=== PATIENT | male | born 1955 | race African-American/Black ===

== ENCOUNTER 2018-02-13 11:03 | Emergency (ER) | payer OTHER ==
[2018-02-13] MEDS ORDERED: HYDROCODONE/APAP 10/325 TAB ONE (11:42)
--- NOTE | 2018-02-13 12:15 | RAD REPORT ---
EXAM DESCRIPTION: RAD - Ribs Left - 02/13/2018 12:06 pm CLINICAL HISTORY: Left rib pain FINDINGS: No fracture is seen. The bones are osteoporotic
--- NOTE | 2018-02-13 12:25 | ER ---
Nurse's Notes [facility] Name: Neftali Gill Jr Age: 62 yrs Sex: Male : 1955 Arrival Date: 02/13/2018 Time: 11:06 Bed 14 Private MD: Mary Alberto Diagnosis: Rib Fracture - Left Presentation: 02/13 11:30 Presenting complaint: Patient states: bent over the side of a chair yesterday and heard iw a pop on left side of ribs, now has pain and difficulty breathing. Transition of care: patient was not received from another setting of care. Onset of symptoms was February 12, 2018. Risk Assessment: Do you want to hurt yourself or someone else? Patient reports no desire to harm self or others. Initial Sepsis Screen: Does the patient meet any 2 criteria? No. Patient's initial sepsis screen is negative. Does the patient have a suspected source of infection? No. Patient's initial sepsis screen is negative. Care prior to arrival: None. 11:30 Method Of Arrival: Ambulatory iw 11:30 Acuity: DUNCAN 4 iw Triage Assessment: 12:06 General: Appears in no apparent distress. uncomfortable, Behavior is calm, cooperative, hj appropriate for age. Respiratory: Reports shortness of breath Onset: The symptoms/episode began/occurred the patient has mild shortness of breath. Historical: - Allergies: 11:36 ACES; iw 11:36 NSAIDS; iw 11:36 Lisinopril; iw 11:36 Diovan; iw - Home Meds: 11:36 amlodipine 10 mg tab 1 tab once daily [Active]; glipizide 10 mg Oral tab 1 tab once iw daily [Active]; hydralazine 25 mg Oral tab 2 times per day [Active]; gabapentin 600 mg oral tab 1 tab 3 times per day [Active]; metformin 1,000 mg Oral tab 1 tab 2 times per day [Active]; Nexium 40 mg Oral cpDR 1 cap once daily [Active]; prednisone 10 mg Oral tab once daily [Active]; - PMHx: 11:36 ANGIOEDEMA; GERD; High Cholesterol; Hypertension; NIDDM; iw - PSHx: 11:36 Trach x2; Cholecystectomy; TURP; iw - Immunization history:: Adult Immunizations up to date. - Social history:: Smoking status: Patient uses tobacco products, 1-2 cigarettes. - Ebola Screening: : Patient negative for fever greater than or equal to 101.5 degrees Fahrenheit, and additional compatible Ebola Virus Disease symptoms Patient denies exposure to infectious person Patient denies travel to an Ebola-affected area in the 21 days before illness onset No symptoms or risks identified at this time. Screenin:30 Abuse screen: Denies threats or abuse. Denies injuries from another. Nutritional hj screening: No deficits noted. Tuberculosis screening: No symptoms or risk factors identified. Fall Risk None identified. Assessment: 11:30 Pain: Complains of pain in chest. Cardiovascular: Rhythm is regular. Respiratory: hj Airway is patent Respiratory effort is even, unlabored, Respiratory pattern is regular, symmetrical, Breath sounds are clear. Vital Signs: 11:37 BP 156 / 73; Pulse 90; Resp 18 S; Temp 98.2; Pulse Ox 97% on R/A; Weight 95.25 kg; iw Height 6 ft. 1 in. (185.42 cm); Pain 8/10; 12:36 BP 160 / 72; Pulse 89; Resp 18; Pulse Ox 99% on R/A; hj 11:37 Body Mass Index 27.71 (95.25 kg, 185.42 cm) iw ED Course: 11:06 Patient arrived in ED. mr 11:06 Mary Alberto is Private Physician. mr 11:20 Jb Taylor, RN is Primary Nurse. hj 11:23 Dariusz Lacey PA is PHCP. jmm 11:23 Jayson Natarajan MD is Attending Physician. jmm 11:30 Patient has correct armband on for positive identification. Placed in gown. Bed in low hj position. Call light in reach. Side rails up X 1. Adult w/ patient. 11:33 Triage completed. iw 11:37 Arm band placed on. iw 12:06 Ribs Left XRAY In Process Unspecified. EDMS 12:24 Mary Alberto is Referral Physician. jmm 12:34 No provider procedures requiring assistance completed. Patient did not have IV access hj during this emergency room visit. Administered Medications: 11:28 Drug: Wilmore 10 mg-325 mg 1 tabs Route: PO; hj 12:36 Follow up: Response: No adverse reaction hj 12:37 Follow up: Response: Pain is decreased hj Outcome: 12:24 Discharge ordered by . jmm 12:35 Discharged to home ambulatory. al 12:35 Condition: stable 12:35 Discharge instructions given to patient, Instructed on discharge instructions, follow up and referral plans. medication usage, incentive spirometer; Demonstrated understanding of instructions, follow-up care, incentive spirometer; Prescriptions given X 1. 12:36 Patient left the ED. al Signatures: Dispatcher [employer] EDMS Dariusz Lacey PA PA jmm Rivera, Maria mr Nedra Lakhani, ANSLEY RN Jb Taylor RN RN hj
--- NOTE | 2018-02-13 12:25 | EDPHYS ---
Physician Documentation [facility] Name: Neftali Gill Jr Age: 62 yrs Sex: Male : 1955 Arrival Date: 02/13/2018 Time: 11:06 Bed 14 Private MD: Mary Alberto ED Physician Jayson Natarajan HPI: 02/13 11:47 This 62 yrs old Black Male presents to ER via Ambulatory with complaints of Breathing jmm Difficulty. 11:47 The patient has shortness of breath with inspiration. Onset: The symptoms/episode jmm began/occurred acutely, yesterday. Duration: The symptoms are continuous. The patient's shortness of breath is aggravated by deep breaths. Associated signs and symptoms: Pertinent negatives: chest pain, fever. This is a 62 year old male with a history of angioedema, HLP, HTN, NIDDM, that presents to the ED with left sided chest pain after bending over and feeling a pop. The patient states he may have broken a rib. Patient states the pain is exacerbated with deep breathing. Denies tearing chest pain. . Historical: - Allergies: 11:36 ACES; iw 11:36 NSAIDS; iw 11:36 Lisinopril; iw 11:36 Diovan; iw - Home Meds: 11:36 amlodipine 10 mg tab 1 tab once daily [Active]; glipizide 10 mg Oral tab 1 tab once iw daily [Active]; hydralazine 25 mg Oral tab 2 times per day [Active]; gabapentin 600 mg oral tab 1 tab 3 times per day [Active]; metformin 1,000 mg Oral tab 1 tab 2 times per day [Active]; Nexium 40 mg Oral cpDR 1 cap once daily [Active]; prednisone 10 mg Oral tab once daily [Active]; - PMHx: 11:36 ANGIOEDEMA; GERD; High Cholesterol; Hypertension; NIDDM; iw - PSHx: 11:36 Trach x2; Cholecystectomy; TURP; iw - Immunization history:: Adult Immunizations up to date. - Social history:: Smoking status: Patient uses tobacco products, 1-2 cigarettes. - Ebola Screening: : Patient negative for fever greater than or equal to 101.5 degrees Fahrenheit, and additional compatible Ebola Virus Disease symptoms Patient denies exposure to infectious person Patient denies travel to an Ebola-affected area in the 21 days before illness onset No symptoms or risks identified at this time. ROS: 11:47 Constitutional: Negative for fever, chills, and weight loss. jmm 11:47 Cardiovascular: Positive for chest pain. 11:47 Respiratory: Positive for shortness of breath. 11:47 All other systems are negative. Exam: 11:47 Constitutional: This is a well developed, well nourished patient who is awake, alert, jmm and in no acute distress. Head/Face: atraumatic. 11:47 Cardiovascular: Regular rate and rhythm. No edema appreciated Respiratory: Normal respirations, no respiratory distress appreciated Abdomen/GI: Non distended, soft Back: Normal ROM MS/ Extremity: Moves all extremities, no obvious deformities appreciated, no edema noted to the lower extremities Neuro: Awake and alert, normal gait Psych: Behavior is normal, Mood is normal, Patient is cooperative and pleasant 11:47 Chest/axilla: pain is elicited on palpation of the left lateral chest wall, no obvious deformity appreciated, . Vital Signs: 11:37 BP 156 / 73; Pulse 90; Resp 18 S; Temp 98.2; Pulse Ox 97% on R/A; Weight 95.25 kg; iw Height 6 ft. 1 in. (185.42 cm); Pain 8/10; 12:36 BP 160 / 72; Pulse 89; Resp 18; Pulse Ox 99% on R/A; hj 11:37 Body Mass Index 27.71 (95.25 kg, 185.42 cm) iw MDM: 11:47 Patient medically screened. jmm 12:20 ED course: Rib series is negative for obvious fracture. PE findings are concerning for jean-paul occult rib fracture. Patient given incetive spirometer in the ED with pneumonia return precautions. Symptoms appear consistent with rib injury opposed to acs cause. Patient denies tear pain concerning for dissection. . 12:20 Response to treatment: the patient's symptoms have markedly improved after treatment. [facility] 12:23 Data reviewed: vital signs, nurses notes, radiologic studies, plain films. Counseling: deborah I had a detailed discussion with the patient and/or guardian regarding: the historical points, exam findings, and any diagnostic results supporting the discharge/admit diagnosis, radiology results, the need for outpatient follow up, to return to the emergency department if symptoms worsen or persist or if there are any questions or concerns that arise at home. 02/13 11:28 Order name: Pradeep Miller XRAY; Complete Time: 12:17 [facility] Administered Medications: 11:28 Drug: [place] 10 mg-325 mg 1 tabs Route: PO; 12:36 Follow up: Response: No adverse reaction 12:37 Follow up: Response: Pain is decreased Disposition: 02/13/18 12:24 Discharged to Home. Impression: Rib Fracture - Left. - Condition is Stable. - Discharge Instructions: Rib Contusion, Rib Belt, Rib Fracture. - Prescriptions for Tylenol- Codeine #3 300-30 mg Oral Tablet - take 1 tablet by ORAL route every 6 hours As needed; 20 tablet. - Medication Reconciliation Form, Thank You Letter, Antibiotic Education, Prescription Opioid Use form. - Follow up: Mary Alberto; When: 1 - 2 days; Reason: Continuance of care. Addendum: 02/21/2018 20:40 Co-signature as Attending Physician, Jayson Natarajan MD I agree with the assessment and k dr plan of care. Signatures: Dispatcher [employer] EDWA Jayson Natarajan MD MD [facility] Dariusz Lacey PA PA [facility] Nedra Lakhani, ANSLEY RN Jb Taylor RN RN Corrections: (The following items were deleted from the chart) 02/13 12:36 12:24 02/13/2018 12:24 Discharged to Home. Impression: Rib Fracture - Left. Condition hj is Stable. Forms are Medication Reconciliation Form, Thank You Letter, Antibiotic Education, Prescription Opioid Use. Follow up: Mary Alberto; When: 1 - 2 days; Reason: Continuance of care. [facility] 21:45 11:47 This is a 62 year old male with a history of angioedema, HLP, HTN, NIDDM, that deborah presents to the ED. [facility]
[2018-02-13 12:40] VITALS: TEMP 98.2
[2018-02-13 12:41] VITALS: BP 160/72; O2SAT 99
== END 2018-02-13 12:36 | disposition home or self-care (01) ==
LOC: ER 11:03
DX: S22.32XA Fracture of one rib, left side, initial encounter for closed fracture (principal); X58.XXXA Exposure to other specified factors, initial encounter; Y93.89 Activity, other specified; Y92.9 Unspecified place or not applicable; Z88.6 Allergy status to analgesic agent; Z88.8 Allergy status to other drugs, medicaments and biological substances; I10 Essential (primary) hypertension; E78.00 Pure hypercholesterolemia, unspecified; E11.9 Type 2 diabetes mellitus without complications; F17.210 Nicotine dependence, cigarettes, uncomplicated
CPT/HCPCS: 99283

== ENCOUNTER 2018-10-02 20:01 | Observation (INO) | payer OTHER ==
[2018-10-02] MEDS ORDERED: DIPHENHYDRAMINE 50 MG/ML VIAL ONE ×2 (20:29→23:44)
[2018-10-02] MEDS ORDERED: METHYLPREDNISOLONE 125 MG INJ ONE (20:29)
[2018-10-02] MEDS ORDERED: FAMOTIDINE 20 MG/2 ML VIAL IV ONE (20:30)
[2018-10-02] MEDS ORDERED: EPINEPHRINE/PF 1 MG/ML AMP ONE (20:31)
[2018-10-02] MEDS ORDERED: DEXAMETHASONE 4 MG/ML VIAL ONE (22:12)
--- NOTE | 2018-10-03 00:32 | EDPHYS ---
Physician Documentation [facility] Name: Neftali Gill Jr Age: 63 yrs Sex: Male : 1955 Arrival Date: 10/02/2018 Time: 20:03 Bed 6 Private MD: Mary Alberto ED Physician Magen Palacios HPI: 10/02 20:19 This 63 yrs old Black Male presents to ER via Ambulatory with complaints of Swelling Of rn Tongue. 20:19 The patient presents with swelling. Onset: The symptoms/episode began/occurred 1 rn hour(s) ago. Duration: The symptoms are continuous. Modifying factors: The symptoms are alleviated by nothing, the symptoms are aggravated by nothing. Severity of symptoms: At their worst the symptoms were mild, in the emergency department the symptoms are unchanged. The patient has experienced similar episodes in the past. Reports multiple previous episodes of angioedema, reports no clear etiology in past, taken off his lisinopril, still happens, has been evaluated by circulation assistant without clear etiology. Reports about an hour ago started swelling again. No rash, no difficulty breathing, came in because one time needed tracheostomy. . Historical: - Allergies: 20:18 ACES; tl2 20:18 Diovan; tl2 20:18 Lisinopril; tl2 20:18 NSAIDS; tl2 - Home Meds: 20:18 amlodipine 10 mg tab 1 tab once daily [Active]; gabapentin 600 mg Oral tab 1 tab 3 tl2 times per day [Active]; glipizide 10 mg Oral tab 1 tab once daily [Active]; hydralazine 25 mg Oral tab 2 times per day [Active]; metformin 1,000 mg Oral tab 1 tab 2 times per day [Active]; Nexium 40 mg Oral cpDR 1 cap once daily [Active]; prednisone 10 mg Oral tab once daily [Active]; - PMHx: 20:18 ANGIOEDEMA; GERD; High Cholesterol; Hypertension; NIDDM; tl2 - Immunization history:: Adult Immunizations up to date. - Social history:: Smoking status: Patient uses tobacco products. - Ebola Screening: : No symptoms or risks identified at this time. - Family history:: not pertinent. - Hospitalizations: : No recent hospitalization is reported. ROS: 20:19 Constitutional: Negative for fever, chills, and weight loss, ENT: + tongue swelling or rn: Negative for chest pain, palpitations, and edema, Respiratory: Negative for shortness of breath, cough, wheezing, and pleuritic chest pain, Abdomen/GI: Negative for abdominal pain, nausea, vomiting, diarrhea, and constipation, MS/Extremity: Negative for injury and deformity, Skin: Negative for injury, rash, and discoloration, Neuro: Negative for headache, weakness, numbness, tingling, and seizure. Exam: 20:19 Constitutional: This is a well developed, well nourished patient who is awake, alert, rn and in no acute distress. Head/Face: Normocephalic, atraumatic. Eyes: Pupils equal round and reactive to light, extra-ocular motions intact. Lids and lashes normal. Conjunctiva and sclera are non-icteric and not injected. Cornea within normal limits. Periorbital areas with no swelling, redness, or edema. ENT: + left tongue swelling able to visualize some of posterior pharynx, handling secretions Neck: Trachea midline, no thyromegaly or masses palpated, and no cervical lymphadenopathy. Supple, full range of motion without nuchal rigidity, or vertebral point tenderness. No Meningismus. Cardiovascular: Regular rate and rhythm. No pulse deficits. Respiratory: Lungs have equal breath sounds bilaterally, clear to auscultation. No increased work of breathing, no retractions or nasal flaring. Skin: Warm, dry with normal turgor. Normal color with no rashes, no lesions, and no evidence of cellulitis. MS/ Extremity: Pulses equal, no cyanosis. Neurovascular intact. Full, normal range of motion. Equal circumference. Neuro: Awake and alert, GCS 15, oriented to person, place, time, and situation. Vital Signs: 20:18 BP 182 / 102; Pulse 108; Resp 18; Pulse Ox 99% on R/A; Weight 81.65 kg; Height 6 ft. 0 tl2 in. (182.88 cm); Pain 0/10; 22:08 BP 157 / 72; Pulse 92; Resp 18; Pulse Ox 98% on R/A; tl2 22:59 BP 164 / 67; Pulse 89; Resp 18; Pulse Ox 96% on R/A; tl2 10/03 00:17 BP 174 / 79; Pulse 89; Resp 18; Pulse Ox 97% on R/A; tl2 10/02 20:18 Body Mass Index 24.41 (81.65 kg, 182.88 cm) tl2 MDM: 10/02 20:13 Patient medically screened. rn 22:41 ED course: Pt about the same, sleeping and maintaining airway, not better or worse.. rn 10/03 00:30 Differential diagnosis: angioedema. Data reviewed: vital signs, nurses notes, and as a rn result, I will admit patient. Counseling: I had a detailed discussion with the patient and/or guardian regarding: the historical points, exam findings, and any diagnostic results supporting the discharge/admit diagnosis, the need for further work-up and treatment in the hospital. Response to treatment: There is no appreciated change of the patient's symptoms at this time, and as a result, I will admit patient. ED course: No improvement or worsening, patient able to sleep and airway maintained, will admit to Dr. Figueroa for further observation in hospital given he got multiple epinephrine and meds without resolution. . 10/03 07:33 Order name: Glucose, Ancillary Testing [facility] 10/03 07:33 Order name: Glucose, Ancillary Testing [facility] 10/02 20:17 Order name: IV Start; Complete Time: 20:24 rn Administered Medications: 10/02 20:22 Drug: SOLU-Medrol 125 mg Route: IVP; Site: right forearm; tl2 21:00 Follow up: Response: No adverse reaction ea :23 Drug: Benadryl 50 mg Route: IVP; Site: right forearm; tl2 10/03 03:01 Follow up: Response: No adverse reaction; Other; symptoms improved ea 10/02 20:25 Drug: Pepcid 20 mg Route: IVP; Site: right forearm; tl2 22:00 Follow up: Response: No adverse reaction ea 20:27 Drug: EPINEPHrine 1mg/mL 1:1,000 0.3 ml Route: Sub-Q; Site: left upper arm; tl2 21:00 Follow up: Response: No adverse reaction ea 21:10 Drug: EPINEPHrine 1mg/mL 1:1,000 0.3 ml Route: Sub-Q; Site: right upper arm; ea 22:00 Follow up: Response: No adverse reaction ea 23:00 Follow up: Response: No adverse reaction ea 22:10 Drug: Decadron - Dexamethasone 10 mg Route: IVP; Site: right antecubital; ea 10/03 03:31 Follow up: Response: No adverse reaction ea 10/02 23:38 Drug: Benadryl 25 mg Route: IVP; Site: right forearm; ea 10/03 03:15 Follow up: Response: No adverse reaction; No adverse reaction, pt reports symptoms have ea been improving little by little. Disposition: 10/03/18 00:31 Hospitalization ordered by Radha Faustin for Observation. Preliminary diagnosis is Angioedema. - Bed requested for Telemetry/MedSurg (observation). - Status is Observation. ch - Condition is Stable. - Problem is an acute exacerbation. - Symptoms are unchanged. UTI on Admission? No Signatures: Brea Hayes, RN ANSLEY ch Pratima Smith RN Park Quiroga RN RN fc Magen Palacios MD MD rn Knox, Taylor, RN RN tl2 Jessica Andrews RN RN df Antunez, Elena, RN RN ea Corrections: (The following items were deleted from the chart) 03:07 00:31 Hospitalization Ordered by Radha Faustin MD for Observation. Preliminary fc diagnosis is Angioedema. Bed requested for Telemetry/MedSurg (observation). Status is Observation. Condition is Stable. Problem is an acute exacerbation. Symptoms are unchanged. UTI on Admission? No. rn 06:36 03:07 10/03/2018 00:31 Hospitalization Ordered by Radha Faustin MD for Observation. kl Preliminary diagnosis is Angioedema. Bed requested for [facility] ER HOLD. Status is Observation. Condition is Stable. Problem is an acute exacerbation. Symptoms are unchanged. UTI on Admission? No. fc 08:36 06:36 10/03/2018 00:31 Hospitalization Ordered by Radha Faustin MD for Observation. df Preliminary diagnosis is Angioedema. Bed requested for Intensive Care Unit. Status is Observation. Condition is Stable. Problem is an acute exacerbation. Symptoms are unchanged. UTI on Admission? No. kl 09:28 08:36 10/03/2018 00:31 Hospitalization Ordered by Radha Faustin MD for Observation. ch Preliminary diagnosis is Angioedema. Bed requested for Telemetry/MedSurg (observation). Status is Observation. Condition is Stable. Problem is an acute exacerbation. Symptoms are unchanged. UTI on Admission? No. df
--- NOTE | 2018-10-03 00:32 | ER ---
Nurse's Notes [facility] Name: Neftali Gill Jr Age: 63 yrs Sex: Male : 1955 Arrival Date: 10/02/2018 Time: 20:03 Bed 6 Private MD: Mary Alberto Diagnosis: Angioedema Presentation: 10/02 20:14 Presenting complaint: Patient states: My tongue started swelling up about 1 hour ago. tl2 It's happened before and my doctors don't know why. I've had to have a emergency trach before. Pt states he can't swallow but is having no breathing difficulty. Swelling noted to left side of tongue. Transition of care: patient was not received from another setting of care. Onset of symptoms was October 02, 2018 at 19:15. Risk Assessment: Do you want to hurt yourself or someone else? Patient reports no desire to harm self or others. Initial Sepsis Screen: Does the patient meet any 2 criteria? No. Patient's initial sepsis screen is negative. Does the patient have a suspected source of infection? No. Patient's initial sepsis screen is negative. Care prior to arrival: None. 20:14 Method Of Arrival: Ambulatory tl2 20:14 Acuity: DUNCAN 2 tl2 Triage Assessment: 20:18 General: Appears in no apparent distress. EENT: left side of tongue swollen. tl2 Respiratory: Airway is patent Respiratory effort is even, unlabored, Respiratory pattern is regular, symmetrical. Historical: - Allergies: 20:18 ACES; tl2 20:18 Diovan; tl2 20:18 Lisinopril; tl2 20:18 NSAIDS; tl2 - Home Meds: 20:18 amlodipine 10 mg tab 1 tab once daily [Active]; gabapentin 600 mg Oral tab 1 tab 3 tl2 times per day [Active]; glipizide 10 mg Oral tab 1 tab once daily [Active]; hydralazine 25 mg Oral tab 2 times per day [Active]; metformin 1,000 mg Oral tab 1 tab 2 times per day [Active]; Nexium 40 mg Oral cpDR 1 cap once daily [Active]; prednisone 10 mg Oral tab once daily [Active]; - PMHx: 20:18 ANGIOEDEMA; GERD; High Cholesterol; Hypertension; NIDDM; tl2 - Immunization history:: Adult Immunizations up to date. - Social history:: Smoking status: Patient uses tobacco products. - Ebola Screening: : No symptoms or risks identified at this time. - Family history:: not pertinent. - Hospitalizations: : No recent hospitalization is reported. Screenin:19 Abuse screen: Denies threats or abuse. Nutritional screening: No deficits noted. tl2 Tuberculosis screening: No symptoms or risk factors identified. Fall Risk None identified. Assessment: 20:18 General: Appears in no apparent distress. uncomfortable, Behavior is cooperative, tl2 appropriate for age, anxious. Pain: Denies pain. Neuro: Level of Consciousness is awake, alert, obeys commands, Oriented to person, place, time, situation. Cardiovascular: Denies chest pain. Respiratory: Airway is patent Respiratory effort is even, unlabored, Respiratory pattern is regular, symmetrical. GI: No signs and/or symptoms were reported involving the gastrointestinal system. : No signs and/or symptoms were reported regarding the genitourinary system. Derm: Skin is pink, warm \T\ dry. 21:30 Reassessment: Patient appears in no apparent distress at this time. Patient and/or tl2 family updated on plan of care and expected duration. Pain level reassessed. Patient is alert, oriented x 3, equal unlabored respirations, skin warm/dry/pink. 22:54 Reassessment: Patient and/or family updated on plan of care and expected duration. Pain ea level reassessed. Patient is alert, oriented x 3, equal unlabored respirations, skin warm/dry/pink. Pt reports the medication has helped some. 23:55 Reassessment: Patient and/or family updated on plan of care and expected duration. Pain ea level reassessed. Patient is alert, oriented x 3, equal unlabored respirations, skin warm/dry/pink. 10/03 00:30 Reassessment: Patient and/or family updated on plan of care and expected duration. Pain ea level reassessed. Pt resting with eyes closed, respirations even and unlabored. Chest expansions even and symmetrical. No s/s of pain or discomfort noted at this time. 01:30 Reassessment: Patient and/or family updated on plan of care and expected duration. Pain ea level reassessed. Patient is alert, oriented x 3, equal unlabored respirations, skin warm/dry/pink. Pt reports symptoms have improved a little. 02:30 Reassessment: Patient and/or family updated on plan of care and expected duration. Pain ea level reassessed. Patient is alert, oriented x 3, equal unlabored respirations, skin warm/dry/pink. 09:26 Reassessment: Patient appears in no apparent distress at this time. Patient and/or ch family updated on plan of care and expected duration. Pain level reassessed. Patient is alert, oriented x 3, equal unlabored respirations, skin warm/dry/pink. [facility] report given to tj Patient states feeling better. Patient states symptoms have improved. Vital Signs: 10/02 20:18 BP 182 / 102; Pulse 108; Resp 18; Pulse Ox 99% on R/A; Weight 81.65 kg; Height 6 ft. 0 tl2 in. (182.88 cm); Pain 0/10; 22:08 BP 157 / 72; Pulse 92; Resp 18; Pulse Ox 98% on R/A; tl2 22:59 BP 164 / 67; Pulse 89; Resp 18; Pulse Ox 96% on R/A; tl2 10/03 00:17 BP 174 / 79; Pulse 89; Resp 18; Pulse Ox 97% on R/A; tl2 10/02 20:18 Body Mass Index 24.41 (81.65 kg, 182.88 cm) tl2 ED Course: 10/02 20:03 Patient arrived in ED. mr 20:03 Mary Alberto is Private Physician. mr 20:11 Gwendolyn Avendano, ANSLEY is Primary Nurse. ea 20:13 Magen Palacios MD is Attending Physician. rn 20:16 Triage completed. tl2 20:18 Arm band placed on right wrist. tl2 20:24 Inserted saline lock: 18 gauge in right forearm, using aseptic technique. aj1 22:11 Patient has correct armband on for positive identification. Bed in low position. Call tl2 light in reach. Side rails up X 1. 10/03 00:31 Radha Faustin MD is Hospitalizing Provider. rn 03:32 No provider procedures requiring assistance completed. Patient admitted, IV remains in ea place. Administered Medications: 10/02 20:22 Drug: SOLU-Medrol 125 mg Route: IVP; Site: right forearm; tl2 21:00 Follow up: Response: No adverse reaction ea 20:23 Drug: Benadryl 50 mg Route: IVP; Site: right forearm; tl2 10/03 03:01 Follow up: Response: No adverse reaction; Other; symptoms improved ea 10/02 20:25 Drug: Pepcid 20 mg Route: IVP; Site: right forearm; tl2 22:00 Follow up: Response: No adverse reaction ea 20:27 Drug: EPINEPHrine 1mg/mL 1:1,000 0.3 ml Route: Sub-Q; Site: left upper arm; tl2 21:00 Follow up: Response: No adverse reaction ea 21:10 Drug: EPINEPHrine 1mg/mL 1:1,000 0.3 ml Route: Sub-Q; Site: right upper arm; ea 22:00 Follow up: Response: No adverse reaction ea 23:00 Follow up: Response: No adverse reaction ea 22:10 Drug: Decadron - Dexamethasone 10 mg Route: IVP; Site: right antecubital; ea 10/03 03:31 Follow up: Response: No adverse reaction ea 10/02 23:38 Drug: Benadryl 25 mg Route: IVP; Site: right forearm; ea 10/03 03:15 Follow up: Response: No adverse reaction; No adverse reaction, pt reports symptoms have ea been improving little by little. Outcome: 00:31 Decision to Hospitalize by Provider. rn 01:30 Instructed on the need for admit. ea 03:33 Condition: stable ea 03:33 Admitted to ER Hold. Please see [facility] for further documentation. ea 09:27 Admitted to Med/surg accompanied by tech, via wheelchair, room 215, with chart, Report ch called to TJ 09:28 Patient left the ED. Signatures: Brea Hayes, RN Nisha Cuevas ch RN RN Mile Hernandez Roman, MD MD rn Knox, Taylor, RN RN tl2 Gwendolyn Avendano RN RN ea
--- NOTE | 2018-10-03 02:10 | P.HP ---
Certification for Inpatient Patient admitted to: Observation With expected LOS: <2 Midnights Practitioner: I am a practitioner with admitting privileges, knowledge of patient current condition, hospital course, and medical plan of care. Services: Services provided to patient in accordance with Admission requirements found in Title 42 Section 412.3 of the Code of Federal Regulations Patient History Date of Service: 10/03/18 Reason for admission: angiodema History of Present Illness: Mr Gill id a 63 years old male with history of idiopathic angioedma, DM II, HTN, who came to ED complaining of tongue swelling. He states that it started about 2 hours previous to arrive. He denied SOB. He did not eat any new food. At arrival his O2 sat was 99% on RA. BP elevated 182/102. In ER the patient was treated with IV Benadryl, epinephrin and steroids. No history of fever or chills. In the past, the patient had a trach for similar episode. At my encounter, he was able to speak. He was already deeply studied at [facility], and the etiology is still unclear. Allergies lisinopril Allergy (Severe, Verified 08/14/17 09:00) Anaphylaxis NSAIDS (Non-Steroidal Anti-Inflamma Allergy (Severe, Verified 08/14/17 09:00) Anaphylaxis valsartan [From Diovan HCT] Allergy (Intermediate, Verified 08/14/17 09:00) SWELLING OF TONGUE nebivolol HCl [From Bystolic] Allergy (Verified 08/14/17 09:00) Shortness of breath cephalexin [From Keflex] Adverse Reaction (Verified 08/14/17 09:00) Anaphylaxis ACES Allergy (Uncoded 09/17/17 08:56) Unknown Home medications list reviewed: Yes Home Medications: Esomeprazole Magnesium [Nexium] 40 mg PO DAILY 07/29/16 Glipizide [Glipizide ER] 10 mg PO DAILY 07/29/16 Metformin ER [Glucophage ER*] 500 mg PO BID 07/29/16 Pravastatin Sodium 40 mg PO BEDTIME 07/29/16 Gabapentin [Neurontin*] 300 mg PO TID 08/29/16 hydrOXYzine pamoate [Hydroxyzine Pamoate] 25 mg PO TID 09/12/16 predniSONE [Deltasone*] 10 mg PO DAILY 05/27/17 Hydralazine HCl [Apresoline] 100 mg PO TID #90 tablet 06/18/17 hydroCHLOROthiazide [Hydrodiuril*] 25 mg PO DAILY #30 tab 06/18/17 Amlodipine [Norvasc*] 10 mg PO [id number] 08/14/17 Tamsulosin [Flomax] 0.4 mg PO BEDTIME 08/14/17 - Past Medical/Surgical History Diabetic: Yes -: HTN -: Hyperlipidemia -: Diabetes mellitus type 2 -: Diabetic neuropathy -: Fatty liver -: Diabetic gastroparesis -: History of anaphylaxis with TIERRA inhibitors,Arb inhibitors,NSAIDS,Beta block -: Osteoarthritis -: GERD -: Tobacco abuse -: Alcohol use -: TRACHEOSTOMY -: CHOLECYSTECTOMY Psychosocial/ Personal History: He is single, has 3 children, 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 - Family History Brother -: Hypertension Mother -: Hypertension - Social History Smoking Status: Current every day smoker Counseled patient to stop smoking for: less than 10 minutes Alcohol use: Yes CD- Drugs: No Caffeine use: Yes Place of Residence: Home Review of Systems 10-point ROS is otherwise unremarkable Physical Examination - Physical Exam General: Alert, In no apparent distress HEENT: Atraumatic, PERRLA, Other (tongue significantly swollen.), EOMI, Sclerae nonicteric Neck: Supple, 2+ carotid pulse no bruit, No LAD, Without JVD or thyroid abnormality Respiratory: Clear to auscultation bilaterally, Normal air movement, Other (no wheezing or stridor) Cardiovascular: Regular rate/rhythm, Normal S1 S2 Gastrointestinal: Normal bowel sounds, No tenderness Musculoskeletal: No tenderness Integumentary: No rashes Neurological: Normal speech, Normal strength at 5/5 x4 extr, Normal tone, Normal affect Lymphatics: No axilla or inguinal lymphadenopathy Assessment and Plan - Problems (Diagnosis) (1) Angioedema Onset Date: 04/21/16 Current Visit: No Status: Acute Qualifiers: Encounter type: subsequent encounter Qualified Code(s): T78.3XXD - Angioneurotic edema, subsequent encounter (2) Diabetes type 2, controlled Current Visit: No Status: Chronic Qualifiers: 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 Will continue with IV steroids, IV benadryl. - Advance Directives Does patient have a Living Will: No Does patient have a Durable POA for Healthcare: No - Code Status/Comfort Care Code Status Assessed: Yes Code Status: Full Code
[2018-10-03] MEDS ORDERED: NA CHLORIDE 0.9% 1,000 ML IV SCH (02:46)
[2018-10-03] MEDS ORDERED: ONDANSETRON 4 MG/2 ML VIAL IV PRN (02:46)
[2018-10-03] MEDS: DIPHENHYDRAMINE 50 MG/ML VIAL IV SCH ×3 (03:00→14:57)
[2018-10-03 03:50] VITALS: BMI 29.8
[2018-10-03] MEDS ORDERED: MORPHINE 2 MG/ML SYR IV ONE (04:38)
[2018-10-03] MEDS ORDERED: MORPHINE 2 MG/ML SYR ONE (04:39)
[2018-10-03] MEDS: INSULIN -REGULAR HUMAN 50 UNIT/0.5 ML ML SQ SCH ×2 (06:00→12:36)
[2018-10-03] MEDS: METHYLPREDNISOLONE 125 MG INJ IV SCH ×2 (06:00→12:37)
[2018-10-03] MEDS ORDERED: METHYLPREDNISOLONE 125 MG INJ ONE (06:16)
[2018-10-03] MEDS ORDERED: INSULIN -REGULAR HUMAN 50 UNIT/0.5 ML ML ONE (06:25)
[2018-10-03 06:45] VITALS: O2SAT 98
[2018-10-03] MEDS ORDERED: D50W 25 GM/50 ML SYRINGE IV PRN (08:18)
[2018-10-03] MEDS ORDERED: GLUCAGON 1 MG/VIAL IM PRN (08:18)
[2018-10-03] MEDS ORDERED: CETIRIZINE HCL 5 MG TABLET PO SCH (09:00)
[2018-10-03] MEDS ORDERED: HOME MED 1 EA UNK (Esomeprazole Magnesium [Nexium] 40 MG) PO SCH (09:00)
[2018-10-03] MEDS ORDERED: INFLUENZA VACCINE (for 3y+) 0.5 ML DOSE IMVAC ONE ×2 (09:00→14:00)
[2018-10-03] MEDS ORDERED: HOME MED 1 EA UNK (Hydralazine Hcl [Apresoline] 25 MG) PO SCH (09:00)
[2018-10-03] MEDS: GABAPENTIN 300 MG CAP PO SCH ×2 (09:00→14:57)
[2018-10-03] MEDS ORDERED: CETIRIZINE HCL 5 MG TABLET ONE (09:21)
[2018-10-03] MEDS ORDERED: GABAPENTIN 300 MG CAP ONE (09:21)
[2018-10-03] MEDS ORDERED: DIPHENHYDRAMINE 50 MG/ML VIAL ONE (09:22)
[2018-10-03] MEDS ORDERED: HYDRALAZINE HCL 10 MG TABLET ONE (09:22)
--- NOTE | 2018-10-03 09:58 | P.PN ---
Subjective Date of Service: 10/03/18 Primary Care Provider: Lana Alberto NP Chief Complaint: angiodema Subjective: Improving (Patient reports improvement to angioedema to the tongue. Patient reports missing his prednisone twice over the last week. He is on chronic steroids for idiopathic chronic angioedema) Physical Examination - Vital Signs Temperature: 98.1 F Blood Pressure: 178/86 Pulse: 89 Respirations: 16 Pulse Ox (%): 97 - Physical Exam General: Alert, In no apparent distress, Oriented x3, Cooperative HEENT: Atraumatic, Other (Edema to the tongue improved) Neck: Supple Respiratory: Clear to auscultation bilaterally, Normal air movement Cardiovascular: Normal pulses, Regular rate/rhythm Gastrointestinal: Normal bowel sounds, Soft and benign, Non-distended, No tenderness, No masses, No rebound, No guarding Musculoskeletal: No erythema, No tenderness, No warmth Integumentary: No tenderness/swelling, No erythema, No warmth, No cyanosis Neurological: Normal speech, Normal strength at 5/5 x4 extr, Normal tone, Normal affect - Studies Medications List Reviewed: Yes Assessment & Plan Discharge Plan: Home Plan to discharge in: 24 Hours Physician Review Additional Text: Impression: Idiopathic angioedema, 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 Continue with IV Solu-Medrol and Zyrtec. Patient reports not taking his prednisone twice over the last week. He is on chronic steroids for a idiopathic angioedema. He has seen specialty care in [place]. Compliance with medication addressed. Await improvement. Anticipate discharge tomorrow on steroids. Compliance with medication addressed. I will turn the service over to Dr. Hayden tomorrow. I will go over the plan of care with her. Diabetes mellitus type 2: Continue with sliding scale. Hypertension: Restart home medication. Diabetic neuropathy: Restart home medication GERD: Restart home medication Time Spent Managing Pts Care (In Minutes): 55
[2018-10-03] MEDS: HYDRALAZINE HCL 25 MG TABLET PO SCH ×2 (10:00→14:58)
[2018-10-03] MEDS ORDERED: PANTOPRAZOLE 40MG TABLET PO SCH (10:00)
--- NOTE | 2018-10-03 14:42 | P.DS ---
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 Patient was admitted for treatment. Patient with history of idiopathic angioedema. Patient mentions that he forgot to take his oral steroid twice this week. He is on chronic steroids for the angioedema. Hospital Course: Patient presented with idiopathic angioedema. Patient on chronic steroids for this. Patient has seen specialists in [place]. This week he forgot to take his prednisone. Patient was evaluated in the emergency room. Patient given IV steroids and epinephrine. Patient was observed. Improvement noted. At discharge swelling to the tongue significantly improved. He was able to eat appropriately. At discharge he will continue with prednisone 20 mg 1 pill twice daily for 5 days then 20 mg daily for 5 days then he will continue his regular regimen of 10 mg daily. I will also start him on Zyrtec 10 mg daily. Compliance with his medication addressed in detail. Patient understands this. Recommend to follow up with his PCP within 1 week to follow up this hospitalization. Patient with diabetes, hypertension, diabetic neuropathy and GERD. Patient will continue with his medications. Vital Signs/Physical Exam: Temp Pulse Resp BP Pulse Ox 98.1 F 89 16 178/86 H 97 10/03/18 09:58 10/03/18 09:58 10/03/18 09:58 10/03/18 09:58 10/03/18 09:58 General: Alert, In no apparent distress, Oriented x3, Cooperative HEENT: Atraumatic Neck: Supple Respiratory: Clear to auscultation bilaterally, Normal air movement Cardiovascular: Normal pulses, Regular rate/rhythm Gastrointestinal: Normal bowel sounds, Soft and benign, Non-distended, No tenderness, No masses, No rebound, No guarding Musculoskeletal: No erythema, No tenderness, No warmth Integumentary: No tenderness/swelling, No erythema, No warmth, No cyanosis Neurological: Normal speech, Normal strength at 5/5 x4 extr, Normal tone, Normal affect Home Medications: Esomeprazole Magnesium [Nexium] 40 mg PO DAILY 07/29/16 Glipizide [Glipizide ER] 10 mg PO DAILY 07/29/16 Metformin ER [Glucophage ER*] 1,000 mg PO BID 07/29/16 Gabapentin [Neurontin*] 600 mg PO TID 08/29/16 predniSONE [Deltasone*] 10 mg PO DAILY 05/27/17 Amlodipine [Norvasc*] 10 mg PO [id number] 08/14/17 Cetirizine HCl [Zyrtec] 10 mg PO DAILY #30 tablet 10/03/18 Hydralazine HCl [Apresoline] 25 mg PO BID* 10/03/18 predniSONE [Prednisone*] 20 mg PO SEECOM #15 tab 10/03/18 New Medications: Cetirizine HCl [Zyrtec] 10 mg PO DAILY #30 tablet predniSONE [Prednisone*] 20 mg PO SEECOM #15 tab Patient Discharge Instructions: 1. Patient will follow up with his PCP within 1 week. 2. Patient presented with idiopathic angioedema. Patient on chronic steroids for this. Patient has seen specialists in [place]. This week he forgot to take his prednisone. Patient was evaluated in the emergency room. Patient given IV steroids and epinephrine. Patient was observed. Improvement noted. At discharge swelling to the tongue significantly improved. He was able to eat appropriately. At discharge he will continue with prednisone 20 mg 1 pill twice daily for 5 days then 20 mg daily for 5 days then he will continue his regular regimen of 10 mg daily. I will also start him on Zyrtec 10 mg daily. Compliance with his medication addressed in detail. Patient understands this. Recommend to follow up with his PCP within 1 week to follow up this hospitalization. Diet: ADA Activity: Ad esperanza Time spent managing pt's care (in minutes): 55
[2018-10-03 14:52] VITALS: BP 183/84; TEMP 98.7
[2018-10-04] MEDS ORDERED: AMLODIPINE 10 MG TAB PO SCH (06:00)
== END 2018-10-03 15:31 | disposition home or self-care (01) ==
LOC: ER 20:01 → ERHOLD 10-03 02:38 → 2ND 10-03 09:18
PROVIDERS: ADMIT Internal Medicine; ATTEND Internal Medicine
DX: T78.3XXA Angioneurotic edema, initial encounter (principal); E11.40 Type 2 diabetes mellitus with diabetic neuropathy, unspecified; K21.9 Gastro-esophageal reflux disease without esophagitis; I10 Essential (primary) hypertension; Z79.52 Long term (current) use of systemic steroids; F17.210 Nicotine dependence, cigarettes, uncomplicated; Z23 Encounter for immunization
CPT/HCPCS: 82962; 96372; 99285; G0008; G0378; J0171; J2270; J2930; J7030; Q2035

== ENCOUNTER 2018-10-13 06:10 | Day surgery (SDC) | payer OTHER ==
--- NOTE | 2018-10-12 15:25 | RAD REPORT ---
EXAM DESCRIPTION: Gino North (2 Views)10/12/2018 3:01 pm CLINICAL HISTORY: Preop COMPARISON: September 2017 FINDINGS: The lungs appear clear of acute infiltrate. The heart is normal size IMPRESSION: No acute abnormalities displayed
[2018-10-12 15:39] LABS: Absolute Lymphocytes (CBC) 2.5 K/uL (0.7-4.9); Absolute Monocytes 0.8 K/uL (0.1-1.3); Absolute Neutrophil 11.8 K/uL (1.8-8.0); Basophils % 1.3 % (0-1.3); Eosinophils % 0.2 % (0-4.4); Hematocrit 38.3 % (39.6-49.0); Lymphocytes % 16.1 % (15.3-44.8); MPV 8.7 fL (7.6-11.3); Monocytes % 5.4 % (3.3-12.3); RBC Red Blood Cell Count 5.37 M/uL (4.33-5.43)
[2018-10-12 16:20] LABS: Potassium 3.9 mmol/L (3.5-5.1)
[2018-10-12 17:10] LABS: Blood Morphology Comment NOTED (NOT SEEN); Hypochromasia 1+; Platelet Estimate ADEQ; Platelets, Giant NOTED; Polychromasia 1+; Urine White Blood Cell Casts OK
--- NOTE | 2018-10-13 06:06 | EKG ---
Test Date: 2018-10-12 Test Time: 14:52:15 Tag Stringer: ISMA MEASUREMENT RESULTS: Intervals: Rate: 90 OR: 136 QRSD: 90 QT: 350 QTc: 428 Marshall: P: 61 OR: 136 QRS: -15 T: 52 INTERPRETIVE STATEMENTS: Sinus rhythm with occasional premature ventricular complexes Minimal voltage criteria for LVH, may be normal variant Nonspecific T wave abnormality Abnormal ECG Compared to ECG 09/17/2017 06:28:51 Ventricular premature complex(es) now present Left ventricular hypertrophy now present T-wave abnormality now present Electronically Signed On 10-13-18 06:04:24 CHICKEN HATCHERY HELPER by Angelo Araiza
[2018-10-13] MEDS ORDERED: CEFAZOLIN/SWI 1gm 1 GM/10 ML SYR ONE (06:55)
[2018-10-13] MEDS ORDERED: NA CHLORIDE 0.9% 1,000 ML ONE (06:55)
[2018-10-13] MEDS ORDERED: METHYLPREDNISOLONE 125 MG INJ ONE (07:25)
[2018-10-13] MEDS ORDERED: BUPIVACAINE 0.5% PF 10 ML VIAL ONE (07:38)
[2018-10-13] MEDS ORDERED: PROPOFOL 200 MG/20 ML VIAL IV ONE (08:01)
[2018-10-13] MEDS ORDERED: ROCURONIUM 50 MG/5 ML VIAL IV ONE (08:02)
[2018-10-13] MEDS ORDERED: LIDOCAINE 2% MPF 5 ML VIAL ONE (08:02)
[2018-10-13] MEDS ORDERED: MIDAZOLAM HCL 2 MG/2 ML INJ ONE (08:03)
[2018-10-13] MEDS ORDERED: ONDANSETRON 4 MG/2 ML VIAL ONE (08:03)
[2018-10-13] MEDS ORDERED: FENTANYL CITR 250 MCG/5 ML ONE (08:03)
[2018-10-13] MEDS ORDERED: DIPHENHYDRAMINE 50 MG/ML VIAL ONE (08:48)
[2018-10-13] MEDS ORDERED: GLYCOPYRROLATE 0.2 MG/ML SYR ONE ×2 (09:04)
[2018-10-13] MEDS ORDERED: NEOSTIGMINE 1 MG/ML -10 ML VIAL ONE (09:05)
--- NOTE | 2018-10-13 09:39 | P.BOP ---
Preoperative diagnosis: RLQ abd pain Postoperative diagnosis: same Primary procedure: 1. Diagnostic laparoscopy Secondary procedure: 2. Laparoscopic appendectomy Other procedure(s): 3. Laparoscopic extensive lysis of adhesions Estimated blood loss: <10cc Specimen: carmita Findings: see dicta Anesthesia: General Complications: None Transferred to: Recovery Room Condition: Good
[2018-10-13] MEDS: FENTANYL CITR 100 MCG/2 ML ONE ×6 (09:52→10:20)
[2018-10-13] MEDS ORDERED: HYDROCODONE/APAP 10/325 TAB ONE (11:07)
[2018-10-13 12:11] VITALS: BP 151/84; TEMP 98.3; O2SAT 97
--- NOTE | 2018-10-13 21:29 | DS ---
Date of Discharge: 10/13/2018 Diagnoses: 1.Right lower quadrant pain. 2.Acute appendicitis. 3.Right lower quadrant extensive intraabdominal adhesions. Procedures: 1.Diagnostic laparoscopy. 2.Laparoscopic appendectomy. 3.Laparoscopic lysis of adhesions. Disposition: Home. Activity: As tolerated. No heavy lifting. Followup: Follow up in my office in 1 week. Call for an appointment at [phone]. Keep the area dry for 48 hours, then may shower. Medications: See orders. TIMOTHY/OPAL Voice ID: [id number] Report ID: [id number]
--- NOTE | 2018-10-13 21:44 | OP ---
Surgeon: Jb Mo MD Water Quality Analyst: SHAAN Rocha. Preoperative Diagnosis: Right lower quadrant abdominal pain, intractable. Postoperative Diagnoses: 1.Right lower quadrant abdominal pain, intractable. 2.Acute appendicitis. 3.Intraabdominal adhesions, extensive, in the right lower quadrant. Procedures: 1.Diagnostic laparoscopy. 2.Laparoscopic appendectomy. 3.Laparoscopic extensive lysis of adhesions. Estimated Blood Loss: Less than 10 cc. Findings: The patient has definite acute appendicitis, retrocecal appendix, asymmetrical in shape an d color, scar in that area. The etiology of that scar is unknown, probably from previous inflammatio n. He also put a mingo in the area of the maximum point tenderness is right below that appendix; and also over that area, the patient has extensive intraabdominal adhesions. I did not recall that he ramirez s told me about any surgeries in that area other than the gallbladder, and the gallbladder area does not look to have that many adhesions. He had a colonoscopy done before with no filling de fects in the ascending colon or cecum. So, the etiology of that is unknown. Complications: None. Indications: This is a case of a 63-year-old patient with above-mentioned history, intractable right lower quadrant pain. He has been dealing with that for several months. He had a CAT scan done, sean ging, barium enemas, but the etiology of that is unknown. He still wants to do the diagnostic laparo scopy, possible appendectomy, and any other indicated procedure with benefits, alternatives, and risk s including, but not limited to infection, bleeding, damage to adjacent structures, anesthesia compli cation, negative appendix, negative exploration, OH, and even . He also understands this may no t relieve any symptoms. He might need more than one surgical intervention. He put an X on the area of the abdomen with the maximum tenderness. That helped us visualize the area from inside and try to correlate that to any intraabdominal findings. Description Of Procedure: At that moment, I proceeded and brought the patient to the operating room, placed in supine position. Anesthesia was done without complication. A time-out was called. Abdom inal area was prepped and draped in a sterile fashion. Marcaine 0.5% was injected for local anesthet ic, followed by sharp incision of the skin in the infraumbilical region. Incision was carried down t o fascia, which was opened under direct vision. Peritoneum was encountered, opened under direct visi on. Vicryl #1 placed inside the fascia. Jose trocar was carefully introduced. Pneumoperitoneum w as obtained. Immediately, we noticed right lower quadrant adhesions exactly where the patient had pi npoint tenderness. We could not identify the appendix because it was embedded in those adhesions. W hen we went inside that area, we noticed the retrocecal appendix with inflammatory changes around the area and a scar tissue. The area of the ascending colon was limited obviously by the scar tissue, b ut we did not see at least any obvious extraluminal masses. The rest of the small bowel, transverse, and descending colon with no extraluminal masses. Liver with no outside parenchymal masses. Stomac h soft and compressible. The area of the pelvis region with no masses seen. At that moment, then we proceeded to put a LigaSure device inside to be able to remove all these extensive adhesions careful ly without enterotomies, but removed the adhesions. That helped us visualize the ascending colon and the appendix a little bit better. We still had to go and mobilize the cecum a little bit to be able to get this retrocecal appendix out of that enclosure of scar tissue. It was asymmetrical in shape and color, that appendix. The appendix was removed with the help of LigaSure for the mesoappendix, a nd then the appendix was removed after creating a window in the mesoappendix and transected at the se with Endo-ZHEN, 45 mm, 3.5. Specimen was sent to the pathologist. The area was irrigated. No ble eding. The area of the lysis of adhesions took a significant amount of time to go through that witho ut enterotomies, but they were done. The area was then inspected and then no ventral hernia was seen . At that moment, I proceeded to remove the trocars under direct vision, deflated pneumoperitoneum, closed the fascia with #1 Vicryl. Irrigated subcu tissue, closed that with 3-0 chromic, and skin in a subcuticular closure. Sponge count and instrument counts were correct. The patient tolerated the procedure well. The patient was sent to recovery in stable condition. TIMOTYH/OPAL Voice ID: [id number] Report ID: [id number]
== END 2018-10-13 11:45 | disposition home or self-care (01) ==
LOC: OR 06:10
PROVIDERS: ATTEND Surgery
PROC: 0DTJ4ZZ Resection of Appendix, Percutaneous Endoscopic Approach (ICD-10-PCS; principal; 2018-10-13 07:30)
PROC: 0DNU4ZZ Release Omentum, Percutaneous Endoscopic Approach (ICD-10-PCS; 2018-10-13 07:30)
DX: K35.80 Unspecified acute appendicitis (principal); K66.0 Peritoneal adhesions (postprocedural) (postinfection)
CPT/HCPCS: 36415; 71046; 80048; 82962; 85025; 88304; 93005; J0690; J2250; J2405; J2704; J2710; J2930; J3010; J7030

== ENCOUNTER 2019-02-13 15:21 | Emergency (ER) | payer OTHER ==
[2019-02-13 16:12] LABS: Urine Blood NEGATIVE (NEG); Urine Glucose 3+ (NEG); Urine Protein NEGATIVE (NEG); Urine pH 5.5 (5.0-7.0)
[2019-02-13 16:17] LABS: Urine Bacteria NONE SEEN /HPF (NONE SEEN); Urine Culture Reflex Order NOT NEEDED; Urine RBC <5 /HPF (NONE SEEN)
[2019-02-13 16:18] LABS: Absolute Lymphocytes (CBC) 1.6 K/uL (0.7-4.9); Basophils % 0.9 % (0-1.3); Eosinophils % 0.3 % (0-4.4); Hematocrit 39.1 % (39.6-49.0); Lymphocytes % 14.9 % (15.3-44.8); MPV 8.1 fL (7.6-11.3); Monocytes % 5.7 % (3.3-12.3); RBC Red Blood Cell Count 5.64 M/uL (4.33-5.43)
[2019-02-13 16:33] LABS: ALT/SGPT 32 U/L (12-78); AST/SGOT 23 U/L (15-37); Albumin 4.1 g/dL (3.4-5.0); Alkaline Phosphatase 52 U/L (45-117); BUN Blood Urea Nitrogen 10 mg/dL (7-18); Bicarbonate 23 mmol/L (21-32); Bilirubin Direct < 0.1 mg/dL (0-0.2); Bilirubin Total 0.1 mg/dL (0.2-1.0); Glucose Level 238 mg/dL (74-106); Lipase 263 U/L (73-393); Potassium 4.1 mmol/L (3.5-5.1); Protein, Total 7.9 g/dL (6.4-8.2); Sodium Level 140 mmol/L (136-145)
[2019-02-13] MEDS ORDERED: ONDANSETRON 4 MG/2 ML VIAL ONE (16:52)
[2019-02-13] MEDS ORDERED: MORPHINE 4 MG/ML SYR ONE (16:52)
--- NOTE | 2019-02-13 17:22 | RAD REPORT ---
EXAM DESCRIPTION: US - Extrem Venous W Compress Dima - 02/13/2019 5:12 pm CLINICAL HISTORY: Leg pain and swelling COMPARISON: None. TECHNIQUE: Real-time sonographic evaluation of the bilateral lower extremity common femoral, superfi cial femoral, popliteal and posterior tibial veins was performed. FINDINGS: Normal compressibility, flow augmentation, phasic flow and spontaneous flow are identified in the left and right lower extremity common femoral, superficial femoral, popliteal and posterior t ibial veins. No intraluminal filling defects seen. IMPRESSION: No DVT in either lower extremity.
--- NOTE | 2019-02-13 17:25 | RAD REPORT ---
EXAM DESCRIPTION: CT - Abdomen Pelvis W Contrast - 02/13/2019 5:13 pm CLINICAL HISTORY: Abdominal pain, leg pain, diarrhea COMPARISON: CT imaging June 2017 TECHNIQUE: Biphasic, helical CT imaging of the abdomen and pelvis was performed following 100 ml non -ionic IV contrast. No oral contrast. . All CT scans are performed using dose optimization technique as appropriate and may include automated exposure control or mA/KV adjustment according to patient size. FINDINGS: No suspicious findings in the lung bases. The liver, spleen, and pancreas show no suspicious findings. Cholecystectomy clips are present. No bi liary tree dilatation. Symmetric renal function is seen with no hydronephrosis or suspicious renal mass. No pyelonephritis o r acute parenchymal process. No bladder abnormalities. No adrenal abnormalities. No gastric dilatation or wall thickening. Several prominent small bowel loops are present. No overall small bowel obstruction pattern, wall thickening or mass. No acute colon process. Appendectomy clips are evident. The appendix is not identified. No free air, free fluid or inflammatory stranding. No hernia, mass or bulky lymphadenopathy. No suspicious bony findings. IMPRESSION: Several prominent small bowel loops are present without obstruction pattern. This is mos t likely a nonspecific enteritis. Cholecystectomy clips are present. No biliary tree dilatation or pancreatic abnormality. No acute process.
--- NOTE | 2019-02-13 17:36 | EDPHYS ---
Physician Documentation [facility] Name: Neftali Gill Jr Age: 63 yrs Sex: Male : 1955 Arrival Date: 02/13/2019 Time: 15:23 Bed 14 Private MD: ED Physician Riccardo Booker HPI: 02/13 16:03 This 63 yrs old Black Male presents to ER via Wheelchair with complaints of Bilateral pm1 Leg Pain, Diarrhea. 16:03 The patient presents to the emergency department with diarrhea. Onset: The pm1 symptoms/episode began/occurred 3 day(s) ago. Possible causes: bad food exposure. The symptoms are aggravated by nothing. The symptoms are alleviated by nothing. Associated signs and symptoms: Pertinent positives: abdominal pain, diarrhea, Pertinent negatives: constipation, fever, nausea, vomiting. Severity of symptoms: in the emergency department the symptoms are unchanged. The patient has not experienced similar symptoms in the past. The patient has not recently seen a physician. Patient also complaining of bilateral leg pain below knees. Historical: - Allergies: 15:38 ACES; la1 15:38 Diovan; la1 15:38 Lisinopril; la1 15:38 NSAIDS; la1 - PMHx: 15:38 ANGIOEDEMA; GERD; High Cholesterol; Hypertension; NIDDM; la1 - Immunization history:: Adult Immunizations up to date. - Social history:: Smoking status: Patient/guardian denies using tobacco. - Ebola Screening: : No symptoms or risks identified at this time. ROS: 16:03 Constitutional: Negative for fever, chills, and weight loss, Eyes: Negative for injury, pm1 pain, redness, and discharge, ENT: Negative for injury, pain, and discharge, Neck: Negative for injury, pain, and swelling, Cardiovascular: Negative for chest pain, palpitations, and edema, Respiratory: Negative for shortness of breath, cough, wheezing, and pleuritic chest pain. 16:03 Back: Negative for injury and pain, : Negative for injury, bleeding, discharge, and swelling. 16:03 Skin: Negative for injury, rash, and discoloration, Neuro: Negative for headache, weakness, numbness, tingling, and seizure. 16:03 Abdomen/GI: Positive for abdominal pain, diarrhea, of the right upper quadrant, Negative for nausea and vomiting, constipation. 16:03 MS/extremity: Positive for pain, of the right leg and left leg, Negative for decreased range of motion, deformity. Exam: 16:03 Constitutional: This is a well developed, well nourished patient who is awake, alert, pm1 and in no acute distress. Head/Face: Normocephalic, atraumatic. Eyes: Pupils equal round and reactive to light, extra-ocular motions intact. Lids and lashes normal. Conjunctiva and sclera are non-icteric and not injected. Cornea within normal limits. Periorbital areas with no swelling, redness, or edema. ENT: Nares patent. No nasal discharge, no septal abnormalities noted. Tympanic membranes are normal and external auditory canals are clear. Oropharynx with no redness, swelling, or masses, exudates, or evidence of obstruction, uvula midline. Mucous membranes moist. Neck: Trachea midline, no thyromegaly or masses palpated, and no cervical lymphadenopathy. Supple, full range of motion without nuchal rigidity, or vertebral point tenderness. No Meningismus. Chest/axilla: Normal chest wall appearance and motion. Nontender with no deformity. No lesions are appreciated. Cardiovascular: Regular rate and rhythm with a normal S1 and S2. No gallops, murmurs, or rubs. Normal PMI, no JVD. No pulse deficits. Respiratory: Lungs have equal breath sounds bilaterally, clear to auscultation and percussion. No rales, rhonchi or wheezes noted. No increased work of breathing, no retractions or nasal flaring. Back: No spinal tenderness. No costovertebral tenderness. Full range of motion. Skin: Warm, dry with normal turgor. Normal color with no rashes, no lesions, and no evidence of cellulitis. 16:03 MS/ Extremity: Pulses equal, no cyanosis. Neurovascular intact. Full, normal range of motion. 16:03 Abdomen/GI: Inspection: abdomen appears normal, Bowel sounds: normal, Palpation: abdomen is soft and non-tender, in all quadrants, mass, is not appreciated, rebound tenderness, is not appreciated. 16:03 Neuro: Orientation: is normal, Motor: is normal, moves all fours. Vital Signs: 15:39 BP 165 / 78; Pulse 90; Resp 16; Temp 97.5; Pulse Ox 98% on R/A; Weight 101.15 kg; la1 Height 6 ft. 1 in. (185.42 cm); 16:45 BP 151 / 93; Pulse 79; Resp 18; Pulse Ox 99% on R/A; Pain 8/10; em 17:45 BP 174 / 91; Pulse 78; Resp 18; Pulse Ox 98% on R/A; Pain 5/10; em 15:39 Body Mass Index 29.42 (101.15 kg, 185.42 cm) la1 MDM: 15:44 Patient medically screened. pm1 17:27 Data reviewed: vital signs. Data interpreted: Pulse oximetry: on room air is 99 %. pm1 Interpretation: normal. 17:34 Counseling: I had a detailed discussion with the patient and/or guardian regarding: the pm1 historical points, exam findings, and any diagnostic results supporting the discharge/admit diagnosis, lab results, radiology results, the need for outpatient follow up, to return to the emergency department if symptoms worsen or persist or if there are any questions or concerns that arise at home. 02/13 15:51 Order name: Lipase; Complete Time: 16:58 pm1 02/13 15:51 Order name: Basic Metabolic Panel; Complete Time: 16:58 pm1 02/13 15:51 Order name: CBC with Diff; Complete Time: 22:06 pm1 02/13 15:51 Order name: Creatinine for Radiology; Complete Time: 16:58 pm1 02/13 15:51 Order name: Hepatic Function; Complete Time: 16:58 pm1 02/13 15:51 Order name: Urine Microscopic Only; Complete Time: 16:25 pm1 02/13 15:51 Order name: Extrem Venous W Compression Dima US; Complete Time: 17:26 pm02/13 15:51 Order name: CT Abd/Pelvis - IV Contrast Only; Complete Time: 17:26 pm1 02/13 15:51 Order name: IV Saline Lock; Complete Time: 16:11 pm02/13 15:51 Order name: Labs collected and sent; Complete Time: 16:11 pm02/13 15:51 Order name: Urine Dipstick-Ancillary (obtain specimen); Complete Time: 16:10 pm1 02/13 16:10 Order name: Urine Dipstick--Ancillary (enter results); Complete Time: 16:25 eb Administered Medications: 16:42 Drug: Zofran 4 mg Route: IVP; Site: left antecubital; iw 18:08 Follow up: Response: No adverse reaction em 16:44 Drug: morphine 4 mg Route: IVP; Site: left antecubital; iw 18:08 Follow up: Response: No adverse reaction; Pain is decreased em Disposition: 18:57 Co-signature as Attending Physician, Riccardo Booker MD. ma2 Disposition: 02/13/19 17:35 Discharged to Home. Impression: Diarrhea, unspecified, Dysuria, Enteritis. - Condition is Stable. - Discharge Instructions: Food Choices to Help Relieve Diarrhea, Adult, Diarrhea, Adult, Dysuria. - Prescriptions for Bentyl 20 mg Oral Tablet - take 1 tablet by ORAL route every 6 hours As needed; 20 tablet. Flagyl 500 mg Oral Tablet - take 1 tablet by ORAL route every 8 hours for 10 days; 30 tablet. Cipro 500 mg Oral Tablet - take 1 tablet by ORAL route every 12 hours for 10 days; 20 tablet. - Medication Reconciliation Form, Thank You Letter, Antibiotic Education, Prescription Opioid Use form. - Follow up: Emergency Department; When: As needed; Reason: Worsening of condition. Follow up: Private Physician; When: 2 - 3 days; Reason: Recheck today's complaints, Continuance of care, Re-evaluation by your physician. - Problem is new. - Symptoms have improved. Signatures: Dispatcher [employer] EDDimitrios Tavarez, PROGRAM AIDE GROUP WORK PROGRAM AIDE GROUP WORK Nedra Combs RN RN iw Attema, Lee, RN RN la1 Armen Leigh, EDUCATOR SENIOR CLINICAL EDUCATOR SENIOR CLINICAL pm1 Riccardo Booker MD MD ma2 Corrections: (The following items were deleted from the chart) 18:09 17:35 02/13/2019 17:35 Discharged to Home. Impression: Diarrhea, unspecifiedDysuria; em Enteritis. Condition is Stable. Forms are Medication Reconciliation Form, Thank You Letter, Antibiotic Education, Prescription Opioid Use. Follow up: Emergency Department; When: As needed; Reason: Worsening of condition. Follow up: Private Physician; When: 2 - 3 days; Reason: Recheck today's complaints, Continuance of care, Re-evaluation by your physician. Problem is new. Symptoms have improved. pm1
--- NOTE | 2019-02-13 17:36 | ER ---
Nurse's Notes [facility] Name: Neftali Gill Jr Age: 63 yrs Sex: Male : 1955 Arrival Date: 02/13/2019 Time: 15:23 Bed 14 Private MD: Diagnosis: Dysuria;Enteritis;Diarrhea, unspecified Presentation: 02/13 15:39 Presenting complaint: Patient states: CELINE lower leg pain and diarrhea. Transition of la1 care: patient was not received from another setting of care. Onset of symptoms was February 13, 2019. Risk Assessment: Do you want to hurt yourself or someone else? Patient reports no desire to harm self or others. Initial Sepsis Screen: Does the patient meet any 2 criteria? No. Patient's initial sepsis screen is negative. Does the patient have a suspected source of infection? No. Patient's initial sepsis screen is negative. Care prior to arrival:. 15:39 Method Of Arrival: Wheelchair la1 15:39 Acuity: DUNCAN 3 la1 Historical: - Allergies: 15:38 ACES; la1 15:38 Diovan; la1 15:38 Lisinopril; la1 15:38 NSAIDS; la1 - PMHx: 15:38 ANGIOEDEMA; GERD; High Cholesterol; Hypertension; NIDDM; la1 - Immunization history:: Adult Immunizations up to date. - Social history:: Smoking status: Patient/guardian denies using tobacco. - Ebola Screening: : No symptoms or risks identified at this time. Screenin:50 Abuse screen: Denies threats or abuse. Nutritional screening: No deficits noted. em Tuberculosis screening: No symptoms or risk factors identified. Fall Risk None identified. Assessment: 16:00 General: Appears in no apparent distress. Behavior is calm, cooperative. Pain: iw Complains of pain in right leg and left leg. Neuro: Level of Consciousness is awake, alert, obeys commands, Oriented to person, place, time, situation, Moves all extremities. Cardiovascular: Patient's skin is warm and dry. Respiratory: Respiratory effort is even, unlabored, Respiratory pattern is regular, symmetrical. GI: Reports diarrhea. Derm: Skin is intact, is healthy with good turgor. 16:45 Reassessment: Patient appears in no apparent distress at this time. Patient and/or em family updated on plan of care and expected duration. Pain level reassessed. Patient is alert, oriented x 3, equal unlabored respirations, skin warm/dry/pink. US at bedside. 17:45 Reassessment: Patient appears in no apparent distress at this time. Patient and/or em family updated on plan of care and expected duration. Pain level reassessed. Patient is alert, oriented x 3, equal unlabored respirations, skin warm/dry/pink. Patient states feeling better. Vital Signs: 15:39 BP 165 / 78; Pulse 90; Resp 16; Temp 97.5; Pulse Ox 98% on R/A; Weight 101.15 kg; la1 Height 6 ft. 1 in. (185.42 cm); 16:45 BP 151 / 93; Pulse 79; Resp 18; Pulse Ox 99% on R/A; Pain 8/10; em 17:45 BP 174 / 91; Pulse 78; Resp 18; Pulse Ox 98% on R/A; Pain 5/10; em 15:39 Body Mass Index 29.42 (101.15 kg, 185.42 cm) la1 ED Course: 15:23 Patient arrived in ED. mr 15:38 Arm band placed on left wrist. la1 15:40 Triage completed. la1 15:43 Armen Leigh NP is PHCP. pm1 15:43 Riccardo Booker MD is Attending Physician. pm1 15:50 Patient has correct armband on for positive identification. Placed in gown. Bed in low em position. Call light in reach. Pulse ox on. NIBP on. 16:02 Dimitrios Gracia LVN is Primary Nurse. em 16:09 Urine collected: clean catch specimen, clear, deo colored. jb1 16:14 Radiology exam delayed due to IV insertion attempt and/or patient not having sg3 appropriate IV at this time. 16:20 Initial lab(s) drawn, by me, sent to lab. Inserted saline lock: 20 gauge in right iw antecubital area, using aseptic technique. Blood collected. 17:05 Ultrasound completed. Patient tolerated well. sg3 17:12 Extrem Venous W Compression Celine US In Process Unspecified. EDMS 17:13 CT Abd/Pelvis - IV Contrast Only In Process Unspecified. EDMS 18:06 No provider procedures requiring assistance completed. IV discontinued, intact, em bleeding controlled, No redness/swelling at site. Pressure dressing applied. Administered Medications: 16:42 Drug: Zofran 4 mg Route: IVP; Site: left antecubital; iw 18:08 Follow up: Response: No adverse reaction em 16:44 Drug: morphine 4 mg Route: IVP; Site: left antecubital; iw 18:08 Follow up: Response: No adverse reaction; Pain is decreased em Outcome: 17:35 Discharge ordered by MD. pm1 18:06 Discharged to home ambulatory, with family. em 18:06 Condition: good 18:06 Discharge instructions given to patient, Instructed on discharge instructions, follow up and referral plans. medication usage, Demonstrated understanding of instructions, follow-up care, medications, Prescriptions given X 3. 18:09 Patient left the ED. em Signatures: Dispatcher [employer] Max Torres jb1 Mile VargasozDimitrios, NETWORK TECHNICIAN NETWORK TECHNICIAN em Nedra Lakhani RN RN Larry Estrella RN RN la1 Armen Leigh NP HARD HAT DIVER pm1 Viktoria Carlos 3
[2019-02-13 18:11] LABS: Anisocytosis 1+; Blood Morphology Comment NOTED (NOT SEEN); Hypochromasia 1+; Platelet Estimate ADEQ; Polychromasia 1+; Urine White Blood Cell Casts OK
[2019-02-13 18:14] VITALS: TEMP 97.5
[2019-02-13 18:17] VITALS: BP 174/91; O2SAT 98
== END 2019-02-13 18:09 | disposition home or self-care (01) ==
LOC: ER 15:21
DX: K52.9 Noninfective gastroenteritis and colitis, unspecified (principal); R30.0 Dysuria; I10 Essential (primary) hypertension; Z88.6 Allergy status to analgesic agent; Z88.8 Allergy status to other drugs, medicaments and biological substances
CPT/HCPCS: 36415; 74177; 80048; 80076; 81003; 81015; 83690; 85025; 93970; 96374; 96375; 99284; J2405; Q9967

== ENCOUNTER 2019-03-15 12:06 | Emergency (ER) | payer OTHER ==
[2019-03-15 12:56] LABS: Absolute Lymphocytes (CBC) 1.2 K/uL (0.7-4.9); Basophils % 0.9 % (0-1.3); Hematocrit 32.1 % (39.6-49.0); Lymphocytes % 10.7 % (15.3-44.8); MPV 8.5 fL (7.6-11.3); RBC Red Blood Cell Count 4.77 M/uL (4.33-5.43)
--- NOTE | 2019-03-15 12:56 | RAD REPORT ---
EXAM DESCRIPTION: Gino Single View03/15/2019 12:48 pm CLINICAL HISTORY: Shortness of breath COMPARISON: October 2018 FINDINGS: Upper lobe vessels are prominent which may indicate pulmonary venous hypertension The lungs appear clear of acute infiltrate. The heart is borderline enlarged
[2019-03-15 13:04] LABS: Protime INR 1.03
[2019-03-15] MEDS ORDERED: FUROSEMIDE 40 MG/4 ML VIAL ONE (13:34)
[2019-03-15 13:40] LABS: Urine White Blood Cell Casts OK
[2019-03-15 13:41] LABS: ALT/SGPT 21 U/L (12-78); AST/SGOT 13 U/L (15-37); Albumin 3.6 g/dL (3.4-5.0); Alkaline Phosphatase 60 U/L (45-117); Anisocytosis SLIGHT; BUN Blood Urea Nitrogen 10 mg/dL (7-18); Bicarbonate 24 mmol/L (21-32); Bilirubin Direct < 0.1 mg/dL (0-0.2); Bilirubin Total 0.2 mg/dL (0.2-1.0); Blood Morphology Comment NOTED (NOT SEEN); Glucose Level 307 mg/dL (74-106); Hypochromasia 1+; Magnesium 2.3 mg/dL (1.8-2.4); NT PRO-BNP 33 pg/mL (<125); Platelet Estimate ADEQ; Potassium 4.2 mmol/L (3.5-5.1); Protein, Total 7.1 g/dL (6.4-8.2); Sodium Level 137 mmol/L (136-145); Troponin (Emerg Dept Use Only) < 0.02 ng/mL (0.0-0.045)
[2019-03-15] MEDS ORDERED: HYDROCODONE/APAP 10/325 TAB ONE (13:48)
[2019-03-15 13:50] LABS: Urine Blood NEGATIVE (NEG); Urine Glucose 2+ (NEG); Urine Protein NEGATIVE (NEG); Urine pH 6.5 (5.0-7.0)
--- NOTE | 2019-03-15 13:58 | RAD REPORT ---
EXAM DESCRIPTION: USExtrem Venous W Compress Bil03/15/2019 1:39 pm CLINICAL HISTORY: Bilateral leg swelling COMPARISON: February 2019 FINDINGS: The common femoral, superficial femoral, popliteal and posterior tibial veins bilaterally are compressible and demonstrate augmentation. Doppler demonstrates good flow. IMPRESSION: No evidence of deep venous thrombosis involving either lower extremity.
--- NOTE | 2019-03-15 14:13 | ER ---
Nurse's Notes [facility] Name: Neftali Gill Jr Age: 64 yrs Sex: Male : 1955 Arrival Date: 03/15/2019 Time: 12:09 Bed 5 Private MD: Diagnosis: Lower extremity swelling Presentation: 03/15 12:10 Presenting complaint: Patient states: both feet have been swollen for a week now, was hj told to come here by my doctor, denies trauma to the area, reports SOB; denies chest pain; pain is 8/10;. Transition of care: patient was not received from another setting of care. Onset of symptoms was March 15, 2019. Risk Assessment: Do you want to hurt yourself or someone else? Patient reports no desire to harm self or others. Initial Sepsis Screen: Does the patient meet any 2 criteria? No. Patient's initial sepsis screen is negative. Does the patient have a suspected source of infection? No. Patient's initial sepsis screen is negative. Care prior to arrival: None. 12:10 Method Of Arrival: Ambulatory 12:10 Acuity: DUNCAN 3 hj Historical: - Allergies: 12:11 ACES; hj 12:11 Diovan; hj 12:11 Lisinopril; hj 12:11 NSAIDS; hj - PMHx: 12:11 ANGIOEDEMA; GERD; High Cholesterol; Hypertension; NIDDM; hj - PSHx: 12:11 Cholecystectomy; Appendectomy; hj - Immunization history:: Adult Immunizations up to date. - Social history:: Smoking status: Patient/guardian denies using tobacco. - Ebola Screening: : No symptoms or risks identified at this time. Screenin:39 Abuse screen: Denies threats or abuse. Denies injuries from another. Nutritional sv screening: No deficits noted. Tuberculosis screening: No symptoms or risk factors identified. Fall Risk None identified. Assessment: 12:30 General: Appears in no apparent distress. uncomfortable, well groomed, well developed, sv Behavior is calm, cooperative, appropriate for age. Pain: Complains of pain in right foot and left foot Pain currently is 8 out of 10 on a pain scale. Quality of pain is described as tender, throbbing, Is intermittent, Aggravated by increased activity, weight bearing. Neuro: Level of Consciousness is awake, alert, obeys commands, Oriented to person, place, time, situation, Moves all extremities. Full function Gait is steady. Cardiovascular: Patient's skin is warm and dry. Pulses are 3+ in right dorsalis pedis artery and left dorsalis pedis artery Edema is 1+ to left foot and right foot Rhythm is sinus rhythm Chest pain is denied. Respiratory: Reports shortness of breath on exertion Airway is patent Respiratory effort is even, unlabored, Respiratory pattern is regular, symmetrical. Derm: Skin is normal. Musculoskeletal: Range of motion: intact in all extremities. 13:50 Reassessment: Patient appears in no apparent distress at this time. No changes from sv previously documented assessment. Patient and/or family updated on plan of care and expected duration. Pain level reassessed. Patient is alert, oriented x 3, equal unlabored respirations, skin warm/dry/pink. 14:20 Reassessment: Patient appears in no apparent distress at this time. No changes from sv previously documented assessment. Patient and/or family updated on plan of care and expected duration. Pain level reassessed. Patient is alert, oriented x 3, equal unlabored respirations, skin warm/dry/pink. 14:30 Reassessment: Pt waiting for his ride home, since pt had a [place]. sv 15:00 Reassessment: Pt waiting for his ride home. sv 15:15 Reassessment: Patient appears in no apparent distress at this time. No changes from sv previously documented assessment. Patient and/or family updated on plan of care and expected duration. Pain level reassessed. Patient is alert, oriented x 3, equal unlabored respirations, skin warm/dry/pink. Vital Signs: 12:12 BP 177 / 78; Pulse 89; Resp 18; Temp 99.3(TE); Pulse Ox 97% on R/A; Weight 146.51 kg; hj Height 6 ft. 1 in. (185.42 cm); Pain 8/10; 12:39 BP 168 / 82; Pulse 90 MON; Resp 13; Pulse Ox 97% on R/A; sv 13:00 BP 170 / 85; Pulse 89; Resp 17; Pulse Ox 96% on R/A; sv 14:30 Pain 6/10; sv 14:39 BP 151 / 77; Pulse 83; Resp 17; Pulse Ox 98% on R/A; sv 15:30 BP 157 / 74; Pulse 84; Resp 14; Pulse Ox 97% on R/A; sv 12:12 Body Mass Index 42.61 (146.51 kg, 185.42 cm) hj 12:39 Sinus Rhythm sv ED Course: 12:09 Patient arrived in ED. hj 12:11 Triage completed. hj 12:11 Arm band placed on right wrist. hj 12:21 Jayson Natarajan MD is Attending Physician. kdr 12:30 Patient has correct armband on for positive identification. Placed in gown. Bed in low sv position. Call light in reach. court recording monitor on. Pulse ox on. NIBP on. Door closed. Warm blanket given. Head of bed elevated. 12:35 Initial lab(s) drawn, by ED staff, sent to lab. Inserted saline lock: 20 gauge in right sv forearm, using aseptic technique. ,using aseptic technique. done by Ami ventura Blood collected. 12:37 Natalie Silvestre, RN is Primary Nurse. sv 12:40 Basic Metabolic Panel Sent. sv 12:40 CBC with Diff Sent. sv 12:40 LFT's Sent. sv 12:40 Magnesium Sent. sv 12:40 NT PRO-BNP Sent. sv 12:40 PT-INR Sent. sv 12:40 Troponin (emerg Dept Use Only) Sent. sv 12:45 X-ray(s) taken. sv 12:47 X-ray completed. Portable x-ray completed in exam room. Patient tolerated procedure ml well. 12:52 XRAY Chest (1 view) In Process Unspecified. EDMS 12:59 EKG done, by erp technical lead. reviewed by Jayson Natarajan MD. sm3 13:23 Patient taken to ultrasound. via stretcher. sv 13:36 CBC Smear Scan Sent. sv 13:43 US Extremity Venous W Compression Dima In Process Unspecified. EDMS 15:39 No provider procedures requiring assistance completed. IV discontinued, intact, ss bleeding controlled, No redness/swelling at site. Pressure dressing applied. Administered Medications: 13:50 Drug: Lasix 40 mg Route: IVP; Site: right forearm; sv 14:15 Follow up: Response: No adverse reaction sv 13:50 Drug: [place] 10 mg-325 mg 1 tabs {Note: RASS-0.} Route: PO; sv 14:30 Follow up: Pain 6/10 Adult; Response: No adverse reaction; Pain is decreased; RASS: sv Alert and Calm (0) Output: 13:30 Urine: 200ml (Voided); Total: 200ml. sv 15:00 Urine: 800ml (Voided); Total: 1000ml. sv Outcome: 14:12 Discharge ordered by . kdr 15:39 Discharged to home ambulatory. ss 15:39 Condition: good 15:39 Discharge instructions given to patient, Instructed on discharge instructions, follow up and referral plans. medication usage, Demonstrated understanding of instructions, follow-up care, medications, Prescriptions given X 1. 15:39 Patient left the ED. ss Signatures: Dispatcher [employer] EDMS Natalie Silvestre RN RN sv Jayson Natarajan MD MD kdr Lopez, Melissa ml Smirch, Shelby, RN RN Jb Taylor RN RN hj Montes, Shakira 3 Corrections: (The following items were deleted from the chart) 12:13 12:10 Presenting complaint: Patient states: both feet have been swollen for a week now, hj was told to come here by my doctor, denies trauma to the area, pain is 8/10; hj 12:14 12:12 Pulse 89bpm; Resp 18bpm; Pulse Ox 97% RA; Temp 99.3F Temporal; 146.51 kg; Height 6 ft. 1 in.; BMI: 42.6; Pain 8/10; hj
--- NOTE | 2019-03-15 14:14 | EDPHYS ---
Physician Documentation [facility] Name: Neftali Gill Jr Age: 64 yrs Sex: Male : 1955 Arrival Date: 03/15/2019 Time: 12:09 Bed 5 Private MD: ED Physician Jayson Natarajan HPI: 03/15 13:28 This 64 yrs old Black Male presents to ER via Ambulatory with complaints of Feet kdr Swelling. 13:28 The patient presents with swelling. The complaints affect the left foot, right foot. kdr Context: The problem was sustained at home, resulted from an unknown cause, Mechanism of Injury: Unknown the patient can fully bear weight, the patient is able to ambulate. Onset: The symptoms/episode began/occurred gradually, 1 week(s) ago. Modifying factors: The symptoms are alleviated by nothing, the symptoms are aggravated by nothing. Associated signs and symptoms: Pertinent positives: swelling, Pain. Severity of symptoms: At their worst the symptoms were mild, in the emergency department the symptoms are unchanged. The patient has not experienced similar symptoms in the past. The patient has not recently seen a physician. The patient states that he has had intermittent swelling to both lower extremities and feet for the past week. This has not happened before and he is also c/o SOB with any exertion. Historical: - Allergies: 12:11 ACES; hj 12:11 Diovan; hj 12:11 Lisinopril; hj 12:11 NSAIDS; hj - PMHx: 12:11 ANGIOEDEMA; GERD; High Cholesterol; Hypertension; NIDDM; hj - PSHx: 12:11 Cholecystectomy; Appendectomy; hj - Immunization history:: Adult Immunizations up to date. - Social history:: Smoking status: Patient/guardian denies using tobacco. - Ebola Screening: : No symptoms or risks identified at this time. ROS: 13:28 Constitutional: Negative for fever, chills, and weight loss, Eyes: Negative for injury, kdr pain, redness, and discharge, ENT: Negative for injury, pain, and discharge, Neck: Negative for injury, pain, and swelling, Cardiovascular: Negative for chest pain, palpitations, and edema, Abdomen/GI: Negative for abdominal pain, nausea, vomiting, diarrhea, and constipation, Back: Negative for injury and pain, : Negative for injury, bleeding, discharge, and swelling, Skin: Negative for injury, rash, and discoloration, Neuro: Negative for headache, weakness, numbness, tingling, and seizure activity. Psych: Negative for depression, anxiety, suicide ideation, homicidal ideation, and hallucinations, Allergy/Immunology: Negative for hives, rash, and allergies, Endocrine: Negative for neck swelling, polydipsia, polyuria, polyphagia, and marked weight changes, Hematologic/Lymphatic: Negative for swollen nodes, abnormal bleeding, and unusual bruising. 13:28 MS/extremity: Positive for swelling, tenderness. Exam: 13:33 Constitutional: This is a well developed, well nourished patient who is awake, alert, kdr and in no acute distress. Head/Face: Normocephalic, atraumatic. Eyes: Pupils equal round and reactive to light, extra-ocular motions intact. Lids and lashes normal. Conjunctiva and sclera are non-icteric and not injected. Cornea within normal limits. Periorbital areas with no swelling, redness, or edema. Neck: Trachea midline, no thyromegaly or masses palpated, and no cervical lymphadenopathy. Supple, full range of motion without nuchal rigidity, or vertebral point tenderness. No Meningismus. Chest/axilla: Normal chest wall appearance and motion. Nontender with no deformity. No lesions are appreciated. Cardiovascular: Regular rate and rhythm with a normal S1 and S2. No gallops, murmurs, or rubs. Normal PMI, no JVD. No pulse deficits. Respiratory: Lungs have equal breath sounds bilaterally, clear to auscultation and percussion. No rales, rhonchi or wheezes noted. No increased work of breathing, no retractions or nasal flaring. Abdomen/GI: Soft, non-tender, with normal bowel sounds. No distension or tympany. No guarding or rebound. No evidence of tenderness throughout. Back: No spinal tenderness. No costovertebral tenderness. Full range of motion. Skin: Warm, dry with normal turgor. Normal color with no rashes, no lesions, and no evidence of cellulitis. Neuro: Awake and alert, GCS 15, oriented to person, place, time, and situation. Cranial nerves II-XII grossly intact. Motor strength 5/5 in all extremities. Sensory grossly intact. Cerebellar exam normal. Normal gait. Psych: Awake, alert, with orientation to person, place and time. Behavior, mood, and affect are within normal limits. 13:33 Musculoskeletal/extremity: Mild swelling to both lower extremities to the the lower leg. The left foot is slightly worse than the right. Vital Signs: 12:12 BP 177 / 78; Pulse 89; Resp 18; Temp 99.3(TE); Pulse Ox 97% on R/A; Weight 146.51 kg; hj Height 6 ft. 1 in. (185.42 cm); Pain 8/10; 12:39 BP 168 / 82; Pulse 90 MON; Resp 13; Pulse Ox 97% on R/A; sv 13:00 BP 170 / 85; Pulse 89; Resp 17; Pulse Ox 96% on R/A; sv 14:30 Pain 6/10; sv 14:39 BP 151 / 77; Pulse 83; Resp 17; Pulse Ox 98% on R/A; sv 15:30 BP 157 / 74; Pulse 84; Resp 14; Pulse Ox 97% on R/A; sv 12:12 Body Mass Index 42.61 (146.51 kg, 185.42 cm) hj 12:39 Sinus Rhythm sv MDM: 13:33 Data reviewed: vital signs, nurses notes, lab test result(s), EKG, radiologic studies. kdr Counseling: I had a detailed discussion with the patient and/or guardian regarding: the historical points, exam findings, and any diagnostic results supporting the discharge/admit diagnosis, lab results, radiology results. 14:12 Patient medically screened. kdr 14:16 ED course: The patient was stable in the ED and without any evidence of acute life or kdr limb threatening injury. 03/15 12:37 Order name: Basic Metabolic Panel; Complete Time: 14:03/15 12:37 Order name: CBC with Diff; Complete Time: 14:03/15 12:37 Order name: LFT's; Complete Time: 14:03/15 12:37 Order name: Magnesium; Complete Time: 14:03/15 12:37 Order name: NT PRO-BNP; Complete Time: 14:03/15 12:37 Order name: PT-INR; Complete Time: 13:34 sv 03/15 12:37 Order name: Troponin (emerg Dept Use Only); Complete Time: 14:03/15 12:37 Order name: XRAY Chest (1 view); Complete Time: 13:07 sv 03/15 12:37 Order name: EKG; Complete Time: 12:43 sv 03/15 13:05 Order name: US Extremity Venous W Compression Dima; Complete Time: 14:09 kdr 03/15 13:15 Order name: Urine Dipstick--Ancillary (enter results); Complete Time: 14:09 bd 03/15 13:38 Order name: CBC Smear Scan; Complete Time: 14:09 EDMS 03/15 12:37 Order name: Cardiac monitoring; Complete Time: 12:37 sv 03/15 12:37 Order name: EKG - Nurse/Tech; Complete Time: 13:19 sv 03/15 12:37 Order name: IV Saline Lock; Complete Time: 12:37 sv 03/15 12:37 Order name: Labs collected and sent; Complete Time: 12:38 sv 03/15 12:37 Order name: O2 Per Protocol; Complete Time: 12:38 sv 03/15 12:37 Order name: O2 Sat Monitoring; Complete Time: 12:38 sv Administered Medications: 13:50 Drug: Lasix 40 mg Route: IVP; Site: right forearm; sv 14:15 Follow up: Response: No adverse reaction sv 13:50 Drug: Meth[place] 10 mg-325 mg 1 tabs {Note: RASS-0.} Route: PO; sv 14:30 Follow up: Pain 6/10 Adult; Response: No adverse reaction; Pain is decreased; RASS: sv Alert and Calm (0) Disposition: 03/15/19 14:12 Discharged to Home. Impression: Lower extremity swelling. - Condition is Stable. - Discharge Instructions: Edema, [id number], Foot Pain. - Prescriptions for Tramadol 50 mg Oral Tablet - take 1 tablet by ORAL route every 8 hours as needed; 12 tablet. - Medication Reconciliation Form, Thank You Letter form. - Follow up: Private Physician; When: 2 - 3 days; Reason: If symptoms return, Further diagnostic work-up, Recheck today's complaints, Continuance of care, Re-evaluation by your physician. - Problem is new. - Symptoms have improved. Signatures: [facility]patcher [facility] Natalie Tinsley RN RN sv Rittger, Kevin, MD MD kdr Smirch, Shelby, RN RN ss Brandon, Jb, RN RN hj Corrections: (The following items were deleted from the chart) 15:39 14:12 03/15/2019 14:12 Discharged to Home. Impression: Lower extremity swelling. ss Condition is Stable. Forms are Medication Reconciliation Form, Thank You Letter, Antibiotic Education, Prescription Opioid Use. Follow up: Private Physician; When: 2 - 3 days; Reason: If symptoms return, Further diagnostic work-up, Recheck today's complaints, Continuance of care, Re-evaluation by your physician. Problem is new. Symptoms have improved. kdr
[2019-03-15 16:12] VITALS: BP 157/74; O2SAT 97
--- NOTE | 2019-03-16 07:14 | EKG ---
Test Date: 2019-03-15 Test Time: 12:57:07 Autocad Detailer: ARVIN MEASUREMENT RESULTS: Intervals: Rate: 86 MA: 144 QRSD: 86 QT: 388 QTc: 464 [place]: P: 59 MA: 144 QRS: -10 T: 49 INTERPRETIVE STATEMENTS: Normal sinus rhythm Prolonged QT Abnormal ECG Compared to ECG 10/12/2018 14:52:15 Prolonged QT interval now present Ventricular premature complex(es) no longer present Left ventricular hypertrophy no longer present T-wave abnormality no longer present Electronically Signed On 03-16-19 07:13:58 CDT by Enrrique Rivers
== END 2019-03-15 15:39 | disposition home or self-care (01) ==
LOC: ER 12:06
DX: M79.89 Other specified soft tissue disorders (principal); M79.672 Pain in left foot; M79.671 Pain in right foot; K21.9 Gastro-esophageal reflux disease without esophagitis; E78.00 Pure hypercholesterolemia, unspecified; I10 Essential (primary) hypertension; Z88.6 Allergy status to analgesic agent; E11.9 Type 2 diabetes mellitus without complications
CPT/HCPCS: 93005; 85025; 80048; 36415; 83735; 85610; 80076; 81003; 84484; 83880; 71045; 93970; 96374; 99285; J1940

== ENCOUNTER 2019-06-18 10:10 | Emergency (ER) | payer OTHER ==
[2019-06-18] MEDS ORDERED: ONDANSETRON 4 MG/2 ML VIAL ONE (10:45)
[2019-06-18] MEDS ORDERED: NA CHLORIDE 0.9% 1,000 ML ONE (10:45)
[2019-06-18] MEDS ORDERED: MORPHINE 4 MG/ML SYR ONE ×2 (10:45→12:21)
[2019-06-18 10:58] LABS: Absolute Lymphocytes (CBC) 0.9 K/uL (0.7-4.9); Basophils % 0.6 % (0-1.3); Hematocrit 34.3 % (39.6-49.0); Lymphocytes % 8.1 % (15.3-44.8); MPV 7.9 fL (7.6-11.3); RBC Red Blood Cell Count 5.07 M/uL (4.33-5.43)
[2019-06-18 11:10] LABS: Urine Bacteria <20 /HPF (NONE SEEN); Urine Culture Reflex Order NOT NEEDED; Urine RBC NONE SEEN /HPF (NONE SEEN)
[2019-06-18 11:19] LABS: ALT/SGPT 28 U/L (12-78); AST/SGOT 16 U/L (15-37); Albumin 3.7 g/dL (3.4-5.0); Alkaline Phosphatase 45 U/L (45-117); BUN Blood Urea Nitrogen 8 mg/dL (7-18); Bicarbonate 23 mmol/L (21-32); Bilirubin Direct < 0.1 mg/dL (0-0.2); Bilirubin Total 0.2 mg/dL (0.2-1.0); Glucose Level 166 mg/dL (74-106); Lipase 428 U/L (73-393); Potassium 3.9 mmol/L (3.5-5.1); Sodium Level 140 mmol/L (136-145)
[2019-06-18 11:50] LABS: Blood Morphology Comment NOTED (NOT SEEN); Hypochromasia 1+; Platelet Estimate ADEQ; Urine White Blood Cell Casts OK
[2019-06-18 11:51] LABS: Polychromasia SLIGHT
--- NOTE | 2019-06-18 12:14 | RAD REPORT ---
EXAM DESCRIPTION: CT - Abdomen Pelvis W Contrast - 06/18/2019 11:39 am CLINICAL HISTORY: dysuria;Flank pain COMPARISON: CT study February 13, 2019 TECHNIQUE: Biphasic, helical CT imaging of the abdomen and pelvis was performed following 100 ml non -ionic IV contrast. No oral contrast was given. All CT scans are performed using dose optimization technique as appropriate and may include automated exposure control or mA/KV adjustment according to patient size. FINDINGS: No suspicious findings in the lung bases. Liver shows mild fatty infiltration pattern with no focal liver lesion. Spleen and pancreas show no s uspicious findings. Cholecystectomy clips are present with no biliary tree dilatation. Symmetric renal function is seen with no hydronephrosis or suspicious renal mass. No pyelonephritis o r acute parenchymal process. No bladder wall thickening, mass or abnormal wall enhancement. No stone or intraluminal filling defect. No adrenal abnormalities. Prostate gland and seminal vesicles show no suspicious findings. No gastric dilatation or wall thickening. No significant small bowel finding. No appendicitis finding s. Moderately large stool volume fills most of the colon. Acute colon process is not identified. Sigm oid colon is quite tortuous and redundant reaching the superior right upper quadrant. No free air, free fluid or inflammatory stranding. No hernia, mass or bulky lymphadenopathy. No suspicious bony findings. IMPRESSION: No pyelonephritis, cystitis or other acute finding to explain flank pain and dysuria. No obstructing or nonobstructing calculi. No acute GI finding identifiable. Patient has moderately large stool volume throughout the colon with out active process. Mild fatty infiltration of the liver.
[2019-06-18 12:39] LABS: Urine Blood NEGATIVE (NEG); Urine Glucose 2+ (NEG); Urine Protein NEGATIVE (NEG)
--- NOTE | 2019-06-18 13:07 | ER ---
Nurse's Notes [facility] Name: Neftali Gill Jr Age: 64 yrs Sex: Male : 1955 Arrival Date: 06/18/2019 Time: 10:13 Bed 13 Private MD: Mary Alberto Diagnosis: Constipation;Unspecified abdominal pain;Dysuria Presentation: 06/18 10:21 Presenting complaint: Patient states: i have had this bad abd pain for 2 -3 days, i tw2 have this bad right sided abdominal pain and it radiates to back, and i have been having diarrhea as well, no nausea or vomiting. Transition of care: patient was not received from another setting of care. Onset of symptoms was June 18, 2019. Risk Assessment: Do you want to hurt yourself or someone else? Patient reports no desire to harm self or others. Initial Sepsis Screen: Does the patient meet any 2 criteria? No. Patient's initial sepsis screen is negative. Does the patient have a suspected source of infection? No. Patient's initial sepsis screen is negative. Care prior to arrival: None. 10:21 Method Of Arrival: Ambulatory tw2 10:21 Acuity: DUNCAN 3 tw2 Triage Assessment: 10:32 General: Appears uncomfortable, Behavior is cooperative, appropriate for age. Pain: tw2 Complains of pain in right upper quadrant and right lower quadrant Pain radiates to back. GI: Reports lower abdominal pain, upper abdominal pain, diarrhea. : Reports burning with urination. Historical: - Allergies: 10:29 NSAIDS; tw2 10:29 Lisinopril; tw 10:29 Diovan; tw 10:29 ACES; tw 10:29 nebivolol HCl; tw 10:29 valsartan; tw 10:29 Cephalexin; tw2 - Home Meds: 10:29 amlodipine 10 mg tab 1 tab once daily [Active]; gabapentin 600 mg Oral tab 1 tab 3 tw2 times per day [Active]; glipizide 10 mg Oral tab 1 tab once daily [Active]; hydralazine 25 mg Oral tab 2 times per day [Active]; metformin 1,000 mg Oral tab 1 tab 2 times per day [Active]; Nexium 40 mg Oral cpDR 1 cap once daily [Active]; prednisone 10 mg Oral tab once daily [Active]; - PMHx: 10:29 ANGIOEDEMA; High Cholesterol; GERD; Hypertension; NIDDM; tw2 - PSHx: 10:29 Cholecystectomy; Appendectomy; tw2 - Immunization history:: Adult Immunizations. - Social history:: Smoking status: . - Ebola Screening: : Patient denies travel to an Ebola-affected area in the 21 days before illness onset. Screenin:31 Abuse screen: Denies threats or abuse. Nutritional screening: No deficits noted. tw2 Tuberculosis screening: No symptoms or risk factors identified. Fall Risk None identified. Assessment: 10:34 General: Appears uncomfortable, Behavior is cooperative, appropriate for age, Smells of tw2 cigarette smoke. Pain: Complains of pain in abdomen and right lower quadrant and right upper quadrant Pain radiates to back. Neuro: Level of Consciousness is awake, alert, obeys commands, Oriented to person, place, time, situation. Cardiovascular: Heart tones S1 S2 Patient's skin is warm and dry. Respiratory: Airway is patent Respiratory effort is even, unlabored, Respiratory pattern is regular, symmetrical, Breath sounds are clear bilaterally. GI: Abdomen is round Bowel sounds present X 4 quads. Abd is soft X 4 quads Abdomen is tender to palpation in right upper quadrant and right lower quadrant Reports lower abdominal pain, upper abdominal pain, diarrhea, Patient currently denies nausea, vomiting. GI: Reports since 2-3 days now. : Reports burning with urination. Derm: No signs and/or symptoms reported regarding the dermatologic system. Musculoskeletal: Range of motion: intact in all extremities. 12:03 Reassessment: No changes from previously documented assessment. Patient and/or family tw2 updated on plan of care and expected duration. Pain level reassessed. Patient is alert, oriented x 3, equal unlabored respirations, skin warm/dry/pink. "the pain got a little better at first now its starting to hurt back up again". 13:38 Reassessment: Patient appears in no apparent distress at this time. Patient and/or tw2 family updated on plan of care and expected duration. Pain level reassessed. Patient is alert, oriented x 3, equal unlabored respirations, skin warm/dry/pink. Vital Signs: 10:24 BP 186 / 80; Pulse 82; Resp 18; Pulse Ox 99% on R/A; Weight 99.79 kg (R); Height 6 ft. tw2 1 in. (185.42 cm); Pain 10/10; 10:31 Temp 98.4(O); tw2 10:56 BP 171 / 80; Pulse 81; Resp 17; Pulse Ox 99% on R/A; tw2 11:54 BP 170 / 89; Pulse 82; Resp 17; Pulse Ox 99% on R/A; Pain 7/10; tw2 13:12 BP 161 / 90; Pulse 76; Resp 17; Pulse Ox 99% on R/A; tw2 10:24 Body Mass Index 29.03 (99.79 kg, 185.42 cm) tw2 ED Course: 10:13 Patient arrived in ED. mr 10:14 Mary Alberto is Private Physician. mr 10:17 [facility] pm1 10:17 Enmanuel Ramirez MD is Attending Physician. pm1 10:23 Triage completed. tw2 10:29 Arm band placed on. tw2 10:31 Bed in low position. Call light in reach. tw2 10:34 Lorene Stevenson, RN is Primary Nurse. tw2 10:46 Radiology exam delayed due to lab results not completed at this time. (BUN/Creatinine). vm2 10:48 Inserted saline lock: 20 gauge in right forearm, using aseptic technique. Blood tw2 collected. 11:39 CT completed. Patient tolerated procedure well. Patient moved back from CT. mw3 13:15 Awaiting re-evaluation by ER provider, Awaiting: prior to discharge. tw2 13:36 No provider procedures requiring assistance completed. IV discontinued, intact, tw2 bleeding controlled, No redness/swelling at site. Pressure dressing applied. Administered Medications: 10:48 Drug: Zofran 4 mg Route: IVP; Site: right forearm; tw2 12:21 Follow up: Response: No adverse reaction tw2 10:48 Drug: NS 0.9% 1000 ml Route: IV; Rate: 1000 ml; Site: right forearm; tw2 11:30 Follow up: Response: No adverse reaction; IV Status: Completed infusion; IV Intake: tw2 1000ml 10:50 Drug: morphine 4 mg Route: IVP; Site: right antecubital; tw2 11:15 Follow up: Response: No adverse reaction; Pain is decreased; RASS: Alert and Calm (0) tw2 12:25 Drug: morphine 4 mg {Note: RASS 0.} Route: IVP; Site: right forearm; tw2 13:00 Follow up: Response: No adverse reaction; Pain is decreased; RASS: Alert and Calm (0) tw2 Intake: 11:30 IV: 1000ml; Total: 1000ml. tw2 Outcome: 13:06 Discharge ordered by . pm1 13:36 Discharged to home ambulatory. tw2 13:36 Condition: stable 13:36 Discharge instructions given to patient, Instructed on discharge instructions, follow up and referral plans. medication usage, Demonstrated understanding of instructions, follow-up care, medications, Prescriptions given X 3. 13:39 Patient left the ED. tw2 Signatures: Mile Vargas mr Armen Leigh, NUCLEAR MEDICINE PHYSICIAN NUCLEAR MEDICINE PHYSICIAN pm1 Lorene Stevenson RN RN tw2 Nahed Pinto 2 Brooke Archibald mw3
--- NOTE | 2019-06-18 13:07 | EDPHYS ---
Physician Documentation [facility] Name: Neftali Gill Jr Age: 64 yrs Sex: Male : 1955 Arrival Date: 06/18/2019 Time: 10:13 Bed 13 Private MD: Mary Alberto ED Physician Enmanuel Ramirez HPI: 06/18 11:00 This 64 yrs old Black Male presents to ER via Ambulatory with complaints of Abdominal pm1 Pain, Back Pain. 11:00 The patient presents with abdominal pain right lower quadrant. Onset: The pm1 symptoms/episode began/occurred 3 day(s) ago. The symptoms radiate to the right flank. Associated signs and symptoms: Pertinent positives: burning with urination, Pertinent negatives: nausea, vomiting, and diarrhea, chest pain, constipation, shortness of breath. The symptoms are described as sharp. Modifying factors: The symptoms are alleviated by sitting up. the symptoms are aggravated by touching the area. Severity of pain: in the emergency department the pain is actually worse. The patient has experienced a previous episode, October 2018 reports similar pain. Had his appendix removed. The patient has not recently seen a physician. Historical: - Allergies: 10: NSAIDS; tw2 10:29 Lisinopril; tw2 10:29 Diovan; tw2 10:29 ACES; tw 10: nebivolol HCl; tw 10: valsartan; tw 10:29 Cephalexin; tw2 - Home Meds: 10: amlodipine 10 mg tab 1 tab once daily [Active]; gabapentin 600 mg Oral tab 1 tab 3 tw2 times per day [Active]; glipizide 10 mg Oral tab 1 tab once daily [Active]; hydralazine 25 mg Oral tab 2 times per day [Active]; metformin 1,000 mg Oral tab 1 tab 2 times per day [Active]; Nexium 40 mg Oral cpDR 1 cap once daily [Active]; prednisone 10 mg Oral tab once daily [Active]; - PMHx: 10:29 ANGIOEDEMA; High Cholesterol; GERD; Hypertension; NIDDM; tw2 - PSHx: 10: Cholecystectomy; Appendectomy; tw2 - Immunization history:: Adult Immunizations. - Social history:: Smoking status: . - Ebola Screening: : Patient denies travel to an Ebola-affected area in the 21 days before illness onset. ROS: 11:00 Constitutional: Negative for fever, chills, and weight loss, Eyes: Negative for injury, pm1 pain, redness, and discharge, ENT: Negative for injury, pain, and discharge, Neck: Negative for injury, pain, and swelling, Cardiovascular: Negative for chest pain, palpitations, and edema, Respiratory: Negative for shortness of breath, cough, wheezing, and pleuritic chest pain. 11:00 MS/Extremity: Negative for injury and deformity, Skin: Negative for injury, rash, and discoloration, Neuro: Negative for headache, weakness, numbness, tingling, and seizure. 11:00 Abdomen/GI: Positive for abdominal pain, of the right lower quadrant, Negative for nausea, vomiting, and diarrhea. 11:00 Back: Positive for flank pain, on the right. 11:00 : Positive for burning with urination. Exam: 11:00 Constitutional: This is a well developed, well nourished patient who is awake, alert, pm1 and in no acute distress. Head/Face: Normocephalic, atraumatic. Eyes: Pupils equal round and reactive to light, extra-ocular motions intact. Lids and lashes normal. Conjunctiva and sclera are non-icteric and not injected. Cornea within normal limits. Periorbital areas with no swelling, redness, or edema. ENT: Nares patent. No nasal discharge, no septal abnormalities noted. Tympanic membranes are normal and external auditory canals are clear. Oropharynx with no redness, swelling, or masses, exudates, or evidence of obstruction, uvula midline. Mucous membranes moist. Neck: Trachea midline, no thyromegaly or masses palpated, and no cervical lymphadenopathy. Supple, full range of motion without nuchal rigidity, or vertebral point tenderness. No Meningismus. Chest/axilla: Normal chest wall appearance and motion. Nontender with no deformity. No lesions are appreciated. Cardiovascular: Regular rate and rhythm with a normal S1 and S2. No gallops, murmurs, or rubs. Normal PMI, no JVD. No pulse deficits. Respiratory: Lungs have equal breath sounds bilaterally, clear to auscultation and percussion. No rales, rhonchi or wheezes noted. No increased work of breathing, no retractions or nasal flaring. 11:00 Skin: Warm, dry with normal turgor. Normal color with no rashes, no lesions, and no evidence of cellulitis. MS/ Extremity: Pulses equal, no cyanosis. Neurovascular intact. Full, normal range of motion. 11:00 Abdomen/GI: Inspection: abdomen appears normal, Bowel sounds: normal, Palpation: soft, mild abdominal tenderness, in the right lower quadrant, mass, is not appreciated, rebound tenderness, is not appreciated. 11:00 Back: pain, that is mild, of the right low back, vertebral tenderness, is not appreciated. 11:00 Neuro: Orientation: is normal, Motor: is normal, moves all fours, Sensation: is normal, no obvious gross deficits. Vital Signs: 10:24 BP 186 / 80; Pulse 82; Resp 18; Pulse Ox 99% on R/A; Weight 99.79 kg (R); Height 6 ft. tw2 1 in. (185.42 cm); Pain 10/10; 10:31 Temp 98.4(O); tw2 10:56 BP 171 / 80; Pulse 81; Resp 17; Pulse Ox 99% on R/A; tw2 11:54 BP 170 / 89; Pulse 82; Resp 17; Pulse Ox 99% on R/A; Pain 7/10; tw2 13:12 BP 161 / 90; Pulse 76; Resp 17; Pulse Ox 99% on R/A; tw2 10:24 Body Mass Index 29.03 (99.79 kg, 185.42 cm) tw2 MDM: 10:18 Patient medically screened. [facility] 11:03 Data reviewed: vital signs. Data interpreted: Pulse oximetry: on room air is 99 %. pm1 Interpretation: normal. 13:05 Counseling: I had a detailed discussion with the patient and/or guardian regarding: the pm1 historical points, exam findings, and any diagnostic results supporting the discharge/admit diagnosis, lab results, radiology results, the need for outpatient follow up, to return to the emergency department if symptoms worsen or persist or if there are any questions or concerns that arise at home. 06/18 10:43 Order name: Basic Metabolic Panel pm1 06/18 10:43 Order name: CBC with Diff pm1 06/18 10:43 Order name: Creatinine for Radiology pm1 06/18 10:43 Order name: Hepatic Function pm1 06/18 10:43 Order name: Lipase pm1 06/18 10:43 Order name: Urine Microscopic Only pm1 06/18 10:56 Order name: Urine Dipstick--Ancillary (enter results) eb 06/18 11:02 Order name: CBC with Automated Diff; Complete Time: 12:06 EDMS 06/18 11:10 Order name: Urine Microscopic Only; Complete Time: 11:21 EDMS 06/18 11:15 Order name: Creatinine (Radiology Only); Complete Time: 11:21 EDMS 06/18 11:20 Order name: Basic Metabolic Panel; Complete Time: 11:21 EDMS 06/18 11:20 Order name: Liver (Hepatic) Function; Complete Time: 11:21 EDMS 06/18 11:20 Order name: Lipase; Complete Time: 11:21 EDMS 06/18 11:51 Order name: CBC Smear Scan; Complete Time: 12:06 EDMS 06/18 10:43 Order name: IV Saline Lock; Complete Time: 10:44 pm1 06/18 10:43 Order name: Labs collected and sent; Complete Time: 10:52 pm1 06/18 10:43 Order name: CT Abd/Pelvis - IV Contrast Only pm1 06/18 10:43 Order name: Urine Dipstick-Ancillary (obtain specimen); Complete Time: 10:52 pm1 06/18 12:34 Order name: CT; Complete Time: 13:04 EDMS 06/18 12:40 Order name: Urine Dipstick-Ancillary; Complete Time: 13:04 EDMS 06/18 13:28 Order name: Urine Culture pm1 Administered Medications: 10:48 Drug: Zofran 4 mg Route: IVP; Site: right forearm; tw2 12:21 Follow up: Response: No adverse reaction tw2 10:48 Drug: NS 0.9% 1000 ml Route: IV; Rate: 1000 ml; Site: right forearm; tw2 11:30 Follow up: Response: No adverse reaction; IV Status: Completed infusion; IV Intake: tw2 1000ml 10:50 Drug: morphine 4 mg Route: IVP; Site: right antecubital; tw2 11:15 Follow up: Response: No adverse reaction; Pain is decreased; RASS: Alert and Calm (0) tw2 12:25 Drug: morphine 4 mg {Note: RASS 0.} Route: IVP; Site: right forearm; tw2 13:00 Follow up: Response: No adverse reaction; Pain is decreased; RASS: Alert and Calm (0) tw2 Disposition: 06/19 13:23 Co-signature as Attending Physician, Enmanuel Ramirez MD I agree with the assessment and [facility] plan of care. Disposition: 06/18/19 13:06 Discharged to Home. Impression: Unspecified abdominal pain, Constipation, Dysuria. - Condition is Stable. - Discharge Instructions: Abdominal Pain, Adult, Constipation, Adult, Dysuria. - Prescriptions for Bentyl 20 mg Oral Tablet - take 1 tablet by ORAL route every 6 hours As needed; 20 tablet. Miralax 17 gram/dose Oral - take 1 packet by ORAL route once daily As needed dilute powder in 8 ounces of water or juice; 7 packet. Macrobid 100 mg Oral Capsule - take 1 capsule by ORAL route every 12 hours for 7 days; 14 capsule. - Medication Reconciliation Form, Thank You Letter, Antibiotic Education, Prescription Opioid Use form. - Follow up: Emergency Department; When: As needed; Reason: Worsening of condition. Follow up: Private Physician; When: 2 - 3 days; Reason: Recheck today's complaints, Continuance of care, Re-evaluation by your physician. - Problem is new. - Symptoms have improved. Signatures: Dispatcher [employer] EDMS Enmanuel Ramirez MD MD cha Marinas, Patrick, MARTIN INSTRUCTOR CREELER pm1 Lorene Stevenson RN RN tw2 Corrections: (The following items were deleted from the chart) 06/18 13:06 13:06 06/18/2019 13:06 Discharged to Home. Impression: Constipation; Unspecified pm1 abdominal pain. Condition is Stable. Forms are Medication Reconciliation Form, Thank You Letter, Antibiotic Education, Prescription Opioid Use. Follow up: Emergency Department; When: As needed; Reason: Worsening of condition. Follow up: Private Physician; When: 2 - 3 days; Reason: Recheck today's complaints, Continuance of care, Re-evaluation by your physician. Problem is new. Symptoms have improved. pm1 13:28 13:06 06/18/2019 13:06 Discharged to Home. Impression: Unspecified abdominal pm1 painConstipation. Condition is Stable. Forms are Medication Reconciliation Form, Thank You Letter, Antibiotic Education, Prescription Opioid Use. Follow up: Emergency Department; When: As needed; Reason: Worsening of condition. Follow up: Private Physician; When: 2 - 3 days; Reason: Recheck today's complaints, Continuance of care, Re-evaluation by your physician. Problem is new. Symptoms have improved. pm1 13:39 13:28 06/18/2019 13:06 Discharged to Home. Impression: Unspecified abdominal tw2 painConstipation; Dysuria. Condition is Stable. Discharge Instructions: Abdominal Pain, Adult, Constipation, Adult. Prescriptions for Bentyl 20 mg Oral Tablet - take 1 tablet by ORAL route every 6 hours As needed; 20 tablet, Miralax 17 gram/dose Oral - take 1 packet by ORAL route once daily As needed dilute powder in 8 ounces of water or juice; 7 packet. and Forms are Medication Reconciliation Form, Thank You Letter, Antibiotic Education, Prescription Opioid Use. Follow up: Emergency Department; When: As needed; Reason: Worsening of condition. Follow up: Private Physician; When: 2 - 3 days; Reason: Recheck today's complaints, Continuance of care, Re-evaluation by your physician. Problem is new. Symptoms have improved. pm1
[2019-06-18 13:55] VITALS: O2SAT 99
[2019-06-18 13:56] VITALS: TEMP 98.4
[2019-06-18 14:01] VITALS: BP 161/90
== END 2019-06-18 13:39 | disposition home or self-care (01) ==
LOC: ER 10:10
DX: K59.00 Constipation, unspecified (principal); I10 Essential (primary) hypertension; E11.9 Type 2 diabetes mellitus without complications; E78.00 Pure hypercholesterolemia, unspecified; Z88.6 Allergy status to analgesic agent; Z88.8 Allergy status to other drugs, medicaments and biological substances
CPT/HCPCS: 96361; 87088; 85025; 80048; 36415; 80076; 83690; 74177; 96375; 96374; 99284; Q9967; J7030; J2405; 81003; 81015; 87086

== ENCOUNTER 2019-07-04 14:05 | Emergency (ER) | payer OTHER, SELFPAY ==
[2012-02-26 16:49] VITALS: BP 176/79
[2019-07-04 14:57] LABS: Absolute Lymphocytes (CBC) 1.8 K/uL (0.7-4.9); Basophils % 1.3 % (0-1.3); Hematocrit 36.4 % (39.6-49.0); Lymphocytes % 14.5 % (15.3-44.8); MPV 8.4 fL (7.6-11.3); RBC Red Blood Cell Count 5.38 M/uL (4.33-5.43)
[2019-07-04] MEDS ORDERED: ONDANSETRON 4 MG/2 ML VIAL ONE (14:57)
[2019-07-04] MEDS ORDERED: FENTANYL CITR 100 MCG/2 ML ONE (14:57)
[2019-07-04] MEDS ORDERED: NA CHLORIDE 0.9% 1,000 ML ONE (15:01)
[2019-07-04 15:28] LABS: ALT/SGPT 29 U/L (12-78); AST/SGOT 16 U/L (15-37); Albumin 4.2 g/dL (3.4-5.0); Alkaline Phosphatase 41 U/L (45-117); BUN Blood Urea Nitrogen 10 mg/dL (7-18); Bicarbonate 23 mmol/L (21-32); Bilirubin Total 0.3 mg/dL (0.2-1.0); Glucose Level 232 mg/dL (74-106); Potassium 4.2 mmol/L (3.5-5.1); Protein, Total 7.5 g/dL (6.4-8.2); Sodium Level 138 mmol/L (136-145)
[2019-07-04 15:43] LABS: Anisocytosis 1+; Blood Morphology Comment NOTED (NOT SEEN); Hypochromasia 1+; Platelet Estimate ADEQ; Poikilocytosis 1+; Urine White Blood Cell Casts OK
[2019-07-04 15:54] LABS: Urine Blood NEGATIVE (NEG); Urine Glucose 2+ (NEG); Urine Protein NEGATIVE (NEG); Urine Specific Gravity <1.005 (1.005-1.030)
--- NOTE | 2019-07-04 16:04 | RAD REPORT ---
EXAM DESCRIPTION: CTAbdomen Pelvis W Contrast - 07/04/2019 3:54 pm CLINICAL HISTORY: Abdominal pain. Right flank pain COMPARISON: <Comparisons> TECHNIQUE: Biphasic CT imaging of the abdomen and pelvis was performed with 100 ml non-ionic IV cont rast. All CT scans are performed using dose optimization technique as appropriate and may include automated exposure control or mA/KV adjustment according to patient size. FINDINGS: The lung bases are clear. The liver, spleen, pancreas, adrenal glands and kidneys are within normal limits. No bowel obstruction, free air, free fluid or abscess. Appendectomy. No evidence of significant lym phadenopathy. Lumbosacral degenerative changes. IMPRESSION: No acute intra-abdominal or pelvic finding.
--- NOTE | 2019-07-04 17:19 | EDPHYS ---
Physician Documentation [facility] Name: Neftali Gill Jr Age: 64 yrs Sex: Male : 1955 Arrival Date: 07/04/2019 Time: 14:07 Bed 13 Private MD: ED Physician Gal Sandoval HPI: 07/04 17:19 This 64 yrs old Black Male presents to ER via Ambulatory with complaints of Abdominal ps1 Pain. 17:19 -patient states that he is having recurrent abdominal pain localized to RLQ and flank ps1 that has been going on for over a month. S/p appendectomy for similar complaints. Remission shortly after and then return of symptoms. Was previously imaged and negative findings. No urinary complaints. Pain was significantly worse last night and today. Rated as severe. No diaphoresis or hematochezia, n/v/d. Previous diagnosis of constipation and reportedly took medication for it and does not feel constipated. . Historical: - Allergies: 14:10 ACES; la1 14:10 Cephalexin; la1 14:10 Diovan; la1 14:10 nebivolol HCl; la1 14:10 Lisinopril; la1 14:10 NSAIDS; la1 14:10 valsartan; la1 - PMHx: 14:10 ANGIOEDEMA; GERD; High Cholesterol; Hypertension; NIDDM; la1 - PSHx: 14:10 Appendectomy; Cholecystectomy; la1 - Immunization history:: Adult Immunizations up to date. - Social history:: Smoking status: Patient/guardian denies using tobacco. - Ebola Screening: : No symptoms or risks identified at this time. ROS: 17:19 Constitutional: Negative for fever, chills, and weight loss, Eyes: Negative for injury, ps1 pain, redness, and discharge, Cardiovascular: Negative for chest pain, palpitations, and edema, Respiratory: Negative for shortness of breath, cough, wheezing, and pleuritic chest pain, MS/Extremity: Negative for injury and deformity, Skin: Negative for injury, rash, and discoloration, Neuro: Negative for headache, weakness, numbness, tingling, and seizure. 17:19 Abdomen/GI: Positive for abdominal pain, of the right upper quadrant. Exam: 17:19 Constitutional: This is a well developed, well nourished patient who is awake, alert, ps1 and in no acute distress. Head/Face: Normocephalic, atraumatic. Eyes: Pupils equal round and reactive to light, extra-ocular motions intact. Lids and lashes normal. Conjunctiva and sclera are non-icteric and not injected. Chest/axilla: Normal chest wall appearance and motion. Nontender with no deformity. No lesions are appreciated. Cardiovascular: Regular rate and rhythm. No gallops, murmurs, or rubs. Normal PMI, no JVD. No pulse deficits. Respiratory: Lungs have equal breath sounds bilaterally, clear to auscultation and percussion. No rales, rhonchi or wheezes noted. No increased work of breathing, no retractions or nasal flaring. MS/ Extremity: Pulses equal, no cyanosis. Neurovascular intact. Full, normal range of motion. Neuro: Awake and alert, GCS 15, oriented to person, place, time, and situation. Cranial nerves II-XII grossly intact. Sensory grossly intact. 17:19 Abdomen/GI: Inspection: abdomen appears normal, Bowel sounds: normal, Palpation: soft, mild abdominal tenderness, in the back and right low back. Vital Signs: 14:10 BP 160 / 83; Pulse 90; Resp 16; Temp 99.1; Pulse Ox 100% on R/A; Weight 97.52 kg; la1 Height 6 ft. 1 in. (185.42 cm); 15:00 BP 156 / 89; Pulse 80; Resp 16 S; Pulse Ox 96% on R/A; Pain 10/10; aa5 14:10 Body Mass Index 28.37 (97.52 kg, 185.42 cm) la1 MDM: 14:33 Patient medically screened. ps1 17:19 Differential diagnosis: bowel obstruction, diverticulitis, gastritis, non-specific abd ps1 pain, post surgical adhesions. Data reviewed: vital signs, nurses notes, lab test result(s), radiologic studies, and as a result, I will discharge patient. Counseling: I had a detailed discussion with the patient and/or guardian regarding: the historical points, exam findings, and any diagnostic results supporting the discharge/admit diagnosis, lab results, radiology results, the need for outpatient follow up, a corporate representative, to return to the emergency department if symptoms worsen or persist or if there are any questions or concerns that arise at home. ED course: Repeat abdominal exam is benign abdomen. Discussed findings with patient including labs and imaging. Home with tramadol. Likely adhesions from previous surgery. Patient to follow up with GI for further diagnostic testing. Return precautions given. 07/04 14:39 Order name: CBC with Diff; Complete Time: 15:45 ps1 07/04 14:39 Order name: CMP; Complete Time: 15:29 ps1 07/04 14:39 Order name: CT Abd/Pelvis - IV Contrast Only; Complete Time: 16:38 ps1 07/04 15:05 Order name: Urine Dipstick--Ancillary (enter results); Complete Time: 15:55 ss 07/04 15:06 Order name: CBC Smear Scan; Complete Time: 15:45 EDNY 07/04 14:39 Order name: Urine Dipstick-Ancillary (obtain specimen); Complete Time: 15:08 ps1 Administered Medications: 15:09 Drug: NS 0.9% 1000 ml Route: IV; Rate: 1 bolus; Site: right forearm; aa5 15:09 Drug: fentaNYL (PF) 50 mcg Route: IVP; Site: right forearm; aa5 15:30 Follow up: Response: No adverse reaction; Pain is decreased aa5 15:09 Drug: Zofran 4 mg Route: IVP; Site: right forearm; aa5 15:30 Follow up: Response: No adverse reaction aa5 Disposition: 07/04/19 17:18 Discharged to Home. Impression: Right Lower Quadrant Abdominal Pain. - Condition is Stable. - Discharge Instructions: Abdominal Pain, Adult, [id number]. - Prescriptions for tramadol 100 mg Oral tablet extended release 24 hr - take 1 tablet by ORAL route once daily; 20 tablet. Colace 100 mg Oral Tablet - take 1 tablet by ORAL route every 12 hours; 14 tablet. - Medication Reconciliation Form, Thank You Letter, Antibiotic Education, Prescription Opioid Use form. - Follow up: Private Physician; When: 48 Hours; Reason: Further diagnostic work-up, Recheck today's complaints, Re-evaluation by your physician. Follow up: Emergency Department; When: As needed; Reason: Fever > 102 F, Worsening of condition. - Problem is an ongoing problem. - Symptoms are unchanged. Signatures: [facility] Chelsey Silverio RN RN aa5 Larry Estrella RN RN la1 Gal Sandoval MD MD ps1 Corrections: (The following items were deleted from the chart) 17:55 17:18 07/04/2019 17:18 Discharged to Home. Impression: Right Lower Quadrant Abdominal aa5 Pain. Condition is Stable. Forms are Medication Reconciliation Form, Thank You Letter, Antibiotic Education, Prescription Opioid Use. Follow up: Private Physician; When: 48 Hours; Reason: Further diagnostic work-up, Recheck today's complaints, Re-evaluation by your physician. Follow up: Emergency Department; When: As needed; Reason: Fever > 102 F, Worsening of condition. Problem is an ongoing problem. Symptoms are unchanged. ps1
--- NOTE | 2019-07-04 17:19 | ER ---
Nurse's Notes [facility] Name: Neftali Gill Jr Age: 64 yrs Sex: Male : 1955 Arrival Date: 07/04/2019 Time: 14:07 Bed 13 Private MD: Diagnosis: Right Lower Quadrant Abdominal Pain Presentation: 07/04 14:09 Presenting complaint: Patient states: right sided abd pain since last night. Transition la1 of care: patient was not received from another setting of care. Onset of symptoms was July 04, 2019. Risk Assessment: Do you want to hurt yourself or someone else? Patient reports no desire to harm self or others. Initial Sepsis Screen: Does the patient meet any 2 criteria? No. Patient's initial sepsis screen is negative. Does the patient have a suspected source of infection? No. Patient's initial sepsis screen is negative. Care prior to arrival: None. 14:09 Method Of Arrival: Ambulatory la1 14:09 Acuity: DUNCAN 3 la1 Historical: - Allergies: 14:10 ACES; la1 14:10 Cephalexin; la1 14:10 Diovan; la1 14:10 nebivolol HCl; la1 14:10 Lisinopril; la1 14:10 NSAIDS; la1 14:10 valsartan; la1 - PMHx: 14:10 ANGIOEDEMA; GERD; High Cholesterol; Hypertension; NIDDM; la1 - PSHx: 14:10 Appendectomy; Cholecystectomy; la1 - Immunization history:: Adult Immunizations up to date. - Social history:: Smoking status: Patient/guardian denies using tobacco. - Ebola Screening: : No symptoms or risks identified at this time. Screenin:15 Abuse screen: Denies threats or abuse. Nutritional screening: No deficits noted. aa5 Tuberculosis screening: No symptoms or risk factors identified. Fall Risk None identified. Assessment: 14:15 General: Appears uncomfortable, Behavior is calm, cooperative. Pain: Complains of pain aa5 in right flank Pain radiates to right low back Pain currently is 10 out of 10 on a pain scale. Quality of pain is described as sharp, shooting, Pain began Pt states "It's been a while and I've seen Dr. Mo for this before but they can't find anything and over the last 2 days it got way worse and I couldn't sleep" Is continuous. Neuro: Level of Consciousness is awake, alert, obeys commands, Oriented to person, place, time, situation. Cardiovascular: Heart tones S1 S2 present Rhythm is regular. Respiratory: Airway is patent Respiratory effort is even, unlabored, Respiratory pattern is regular, symmetrical. GI: Abdomen is round non-distended, Bowel sounds present X 4 quads. Abd is soft and non tender X 4 quads. Reports diarrhea, nausea, Patient currently denies vomiting. : Denies burning with urination, inability to void. EENT: No signs and/or symptoms were reported regarding the EENT system. Derm: Skin is dry, Skin is normal, Skin temperature is warm. Musculoskeletal: Range of motion: intact in all extremities. Vital Signs: 14:10 BP 160 / 83; Pulse 90; Resp 16; Temp 99.1; Pulse Ox 100% on R/A; Weight 97.52 kg; la1 Height 6 ft. 1 in. (185.42 cm); 15:00 BP 156 / 89; Pulse 80; Resp 16 S; Pulse Ox 96% on R/A; Pain 10/10; aa5 14:10 Body Mass Index 28.37 (97.52 kg, 185.42 cm) la1 ED Course: 14:07 Patient arrived in ED. as 14:09 Triage completed. la1 14:09 Arm band placed on left wrist. la1 14:12 Gal Sandoval MD is Attending Physician. ps1 14:15 Chelsey Silverio, RN is Primary Nurse. aa5 14:15 Patient has correct armband on for positive identification. Placed in gown. Bed in low aa5 position. Call light in reach. Side rails up X2. 14:35 Inserted saline lock: 20 gauge in right forearm, using aseptic technique. Blood rv collected. 14:57 Radiology exam delayed due to lab results not completed at this time. (BUN/Creatinine). wv 15:54 CT completed. Patient tolerated procedure well. Patient moved to CT. Patient moved back wv from CT. 15:54 CT Abd/Pelvis - IV Contrast Only In Process Unspecified. EDMS Administered Medications: 15:09 Drug: NS 0.9% 1000 ml Route: IV; Rate: 1 bolus; Site: right forearm; aa5 15:09 Drug: fentaNYL (PF) 50 mcg Route: IVP; Site: right forearm; aa5 15:30 Follow up: Response: No adverse reaction; Pain is decreased aa5 15:09 Drug: Zofran 4 mg Route: IVP; Site: right forearm; aa5 15:30 Follow up: Response: No adverse reaction aa5 Outcome: 17:18 Discharge ordered by . ps1 17:55 Patient left the ED. aa5 Signatures: Dispatcher [employer] EDEdda Galaviz Audri, RN RN aa5 Larry Estrella RN RN laDavid Webb Phillip, MD MD ps1 Bert Maldonado RN RN rv Corrections: (The following items were deleted from the chart) 15:11 15:09 Zofran 4 mg IVP in right antecubital aa5 aa5 15:12 15:09 fentaNYL (PF) 50 mcg IVP in right antecubital aa5 aa5 15:12 15:09 NS 0.9% 1000 ml IV at 1 bolus in right antecubital aa5 aa5
== END 2019-07-04 17:55 | disposition home or self-care (01) ==
LOC: ER 14:05
DX: R10.31 Right lower quadrant pain (principal); I10 Essential (primary) hypertension; Z88.1 Allergy status to other antibiotic agents; Z88.6 Allergy status to analgesic agent; Z88.8 Allergy status to other drugs, medicaments and biological substances
CPT/HCPCS: 36415; 74177; 80053; 81003; 85025; 96374; 96375; 99284; J2405; J3010; J7030; Q9967

== ENCOUNTER 2019-07-12 13:08 | Emergency (ER) | payer SELFPAY ==
[2019-07-12] MEDS ORDERED: dexAMETHasone 10 MG/ML VIAL ONE (13:48)
--- NOTE | 2019-07-12 14:04 | RAD REPORT ---
EXAM DESCRIPTION: RAD - Chest Single View - 07/12/2019 1:58 pm CLINICAL HISTORY: CHEST PAIN Chest pain. COMPARISON: Chest Single View dated 03/15/2019; Chest Pa And Lat (2 Views) dated 10/12/2018; Chest Singl e View dated 09/17/2017; Chest Pa And Lat (2 Views) dated 07/16/2017 FINDINGS: Portable technique limits examination quality. The lungs are grossly clear. The heart is normal in size. No displaced fractures. IMPRESSION: No acute intrathoracic process suspected.
[2019-07-12 14:19] LABS: Absolute Lymphocytes (CBC) 1.4 K/uL (0.7-4.9); Basophils % 0.6 % (0-1.3); Hematocrit 34.5 % (39.6-49.0); Lymphocytes % 14.5 % (15.3-44.8); MPV 8.6 fL (7.6-11.3); RBC Red Blood Cell Count 5.14 M/uL (4.33-5.43)
[2019-07-12 14:27] LABS: BUN Blood Urea Nitrogen 11 mg/dL (7-18); Bicarbonate 22 mmol/L (21-32); Glucose Level 258 mg/dL (74-106); NT PRO-BNP 36 pg/mL (<125); Potassium 4.3 mmol/L (3.5-5.1); Sodium Level 138 mmol/L (136-145); Troponin (Emerg Dept Use Only) < 0.02 ng/mL (0.0-0.045)
--- NOTE | 2019-07-12 15:03 | EDPHYS ---
Physician Documentation [facility] Name: Neftali Gill Jr Age: 64 yrs Sex: Male : 1955 Arrival Date: 07/12/2019 Time: 13:12 Bed 7 Private MD: ED Physician Magen Palacois HPI: 07/12 14:10 This 64 yrs old Black Male presents to ER via Ambulatory with complaints of Chest Pain, rn Skin Problem. 14:10 The patient or guardian reports chest pain that is located primarily in the left rn lateral anterior chest. 14:10 Onset: yesterday. The pain does not radiate. Associated signs and symptoms: Pertinent rn positives: shortness of breath. 14:12 The chest pain is described as sharp, stabbing. Duration: The patient or guardian rn reports multiple episodes, that are intermittent. Modifying factors: The symptoms are alleviated by nothing. the symptoms are aggravated by deep breath, palpation of area. Severity of pain: At its worst the pain was moderate in the emergency department the pain is unchanged. The patient has not experienced similar symptoms in the past. The patient has not recently seen a physician. Historical: - Allergies: 13:31 ACES; aj1 13:31 Cephalexin; aj1 13:31 Diovan; aj1 13:31 Lisinopril; aj1 13:31 nebivolol HCl; aj1 13:31 NSAIDS; aj1 13:31 valsartan; aj1 - PMHx: 13:31 ANGIOEDEMA; GERD; High Cholesterol; Hypertension; NIDDM; aj1 - Immunization history:: Flu vaccine is up to date. - Social history:: Smoking status: Patient uses tobacco products, denies chronic smoking, but will smoke occasionally. - Ebola Screening: : Patient denies travel to an Ebola-affected area in the 21 days before illness onset. - Family history:: not pertinent. - Hospitalizations: : No recent hospitalization is reported. ROS: 14:18 Constitutional: Negative for fever, chills, and weight loss, Eyes: Negative for injury, rn pain, redness, and discharge, Neck: Negative for injury, pain, and swelling, Cardiovascular: Negative for palpitations, and edema, Respiratory: Negative for cough, wheezing Abdomen/GI: Negative for abdominal pain, nausea, vomiting, diarrhea, and constipation, MS/Extremity: Negative for injury and deformity, Skin: + rash to left torso Neuro: Negative for headache, weakness, numbness, tingling, and seizure. Exam: 14:18 Constitutional: This is a well developed, well nourished patient who is awake, alert, rn and in no acute distress. Head/Face: Normocephalic, atraumatic. ENT: MMM, no swelling Chest/axilla: + left chest/torso linear erythematous and pustular rash that does not cross midline but from spine to subxiphoid region. No fluctuance. Cardiovascular: Regular rate and rhythm. No pulse deficits. Respiratory: Lungs have equal breath sounds bilaterally, clear to auscultation. No increased work of breathing, no retractions or nasal flaring. Abdomen/GI: soft, non-tender MS/ Extremity: Pulses equal, no cyanosis. Neurovascular intact. Full, normal range of motion. Equal circumference. Neuro: Awake and alert, GCS 15, oriented to person, place, time, and situation. Cranial nerves II-XII grossly intact. Motor strength 5/5 in all extremities. Sensory grossly intact. Cerebellar exam normal. Normal gait. Vital Signs: 13:32 BP 153 / 85; Pulse 102; Resp 20; Temp 98.6(TE); Pulse Ox 97% on R/A; Weight 97.52 kg aj1 (R); Height 6 ft. 1 in. (185.42 cm) (R); Pain 8/10; 14:35 BP 141 / 75; Pulse 88; Resp 15; Pulse Ox 95% ; sv 13:32 Body Mass Index 28.37 (97.52 kg, 185.42 cm) aj MDM: 13:35 Patient medically screened. rn 15:00 Differential diagnosis: acute myocardial infarction, acute pericarditis, chest wall rn pain, costochondritis, pleurisy, pneumothorax, shingles. Data reviewed: vital signs, nurses notes, lab test result(s), EKG, radiologic studies, plain films, and as a result, I will discharge patient. Test interpretation: by ED physician or midlevel provider: ECG, plain radiologic studies, CXR neg for acute findings. Counseling: I had a detailed discussion with the patient and/or guardian regarding: the historical points, exam findings, and any diagnostic results supporting the discharge/admit diagnosis, lab results, radiology results, the need for outpatient follow up, to return to the emergency department if symptoms worsen or persist or if there are any questions or concerns that arise at home. Special discussion: Based on the patient's history, exam, and Dx evaluation, there is no indication for emergent intervention or inpatient Tx. It is understood by the patient/guardian that if the Sx's persist or worsen they need to return immediately for re-evaluation. I discussed with the patient/guardian in detail that at this point there is no indication for admission to the hospital. It is understood, however, that if the symptoms persist or worsen the patient needs to return immediately for re-evaluation. ED course: Trop and ecg without ischemia, will dc home with treatment for shingles. . 07/12 13:42 Order name: Basic Metabolic Panel; Complete Time: 14:49 rn 07/12 13:42 Order name: CBC with Diff rn 07/12 13:42 Order name: NT PRO-BNP; Complete Time: 14:49 rn 07/12 13:42 Order name: Troponin (emerg Dept Use Only); Complete Time: 14:49 rn 07/12 13:42 Order name: XRAY Chest (1 view); Complete Time: 14:10 rn 07/12 13:42 Order name: EKG; Complete Time: 13:45 rn 07/12 13:42 Order name: Cardiac monitoring; Complete Time: 13:45 rn 07/12 13:42 Order name: EKG - Nurse/Tech; Complete Time: 14:17 rn 07/12 13:42 Order name: IV Saline Lock; Complete Time: 13:45 rn 07/12 13:42 Order name: Labs collected and sent; Complete Time: 13:45 rn 07/12 13:42 Order name: O2 Per Protocol; Complete Time: 13:45 rn 07/12 13:42 Order name: O2 Sat Monitoring; Complete Time: 13:45 rn Administered Medications: 13:53 Drug: Decadron - Dexamethasone 10 mg Route: IVP; Infused Over: 2 mins; Site: right sv forearm; 15:00 Follow up: Response: No adverse reaction sv Disposition: 07/12/19 15:02 Discharged to Home. Impression: Chest pain, unspecified, Zoster [herpes zoster]. - Condition is Stable. - Discharge Instructions: Nonspecific Chest Pain, Shingles. - Prescriptions for Tylenol- Codeine #3 300-30 mg Oral Tablet - take 2 tablets by ORAL route every 6 hours As needed; 20 tablet. Valtrex 1 g Oral Tablet - take 1 tablet by ORAL route every 8 hours for 7 days; 21 tablet. Medrol (Turner) 4 mg Oral Tablets, Dose Pack - take 1 tablet by ORAL route as directed - follow package instructions; 1 packet. - Medication Reconciliation Form, Thank You Letter, Antibiotic Education, Prescription Opioid Use form. - Follow up: Private Physician; When: As needed; Reason: Recheck today's complaints, Re-evaluation by your physician. - Problem is new. - Symptoms have improved. Signatures: Dispatcher [employer] EDMS Nisha Butt RN RN aj1 Natalie Silvestre RN RN sv Vikas Covington RN RN sg Magen Palacios MD MD general internal medicine doctor: (The following items were deleted from the chart) 15:14 15:02 07/12/2019 15:02 Discharged to Home. Impression: Chest pain, unspecified; Zoster sg [herpes zoster]. Condition is Stable. Forms are Medication Reconciliation Form, Thank You Letter, Antibiotic Education, Prescription Opioid Use. Follow up: Private Physician; When: As needed; Reason: Recheck today's complaints, Re-evaluation by your physician. Problem is new. Symptoms have improved. rn
--- NOTE | 2019-07-12 15:03 | ER ---
Nurse's Notes [facility] Name: Neftali Gill Jr Age: 64 yrs Sex: Male : 1955 Arrival Date: 07/12/2019 Time: 13:12 Bed 7 Private MD: Diagnosis: Chest pain, unspecified;Zoster [herpes zoster] Presentation: 07/12 13:30 Presenting complaint: Patient states: Left sided chest pain that started yesterday. aj1 Patient also reports shortness of breath that is worse when he lays flat. Transition of care: patient was not received from another setting of care. Onset of symptoms was July 11, 2019. Risk Assessment: Do you want to hurt yourself or someone else? Patient reports no desire to harm self or others. Initial Sepsis Screen: Does the patient meet any 2 criteria? No. Patient's initial sepsis screen is negative. Does the patient have a suspected source of infection? No. Patient's initial sepsis screen is negative. Care prior to arrival: None. 13:30 Method Of Arrival: Ambulatory aj1 13:32 Acuity: DUNCAN 2 aj1 Triage Assessment: 13:31 General: Appears in no apparent distress. uncomfortable, Behavior is calm, cooperative, aj1 appropriate for age. Pain: Complains of pain in anterior aspect of left upper chest and left breast Pain does not radiate. Pain currently is 8 out of 10 on a pain scale. Neuro: Level of Consciousness is awake, alert, obeys commands, Oriented to person, place, time, situation. Cardiovascular: Reports chest pain, shortness of breath, Patient's skin is warm and dry. Historical: - Allergies: 13:31 ACES; aj1 13:31 Cephalexin; aj1 13:31 Diovan; aj1 13:31 Lisinopril; aj1 13:31 nebivolol HCl; aj1 13:31 NSAIDS; aj1 13:31 valsartan; aj1 - PMHx: 13:31 ANGIOEDEMA; GERD; High Cholesterol; Hypertension; NIDDM; aj1 - Immunization history:: Flu vaccine is up to date. - Social history:: Smoking status: Patient uses tobacco products, denies chronic smoking, but will smoke occasionally. - Ebola Screening: : Patient denies travel to an Ebola-affected area in the 21 days before illness onset. - Family history:: not pertinent. - Hospitalizations: : No recent hospitalization is reported. Screenin:40 Abuse screen: Denies threats or abuse. Denies injuries from another. Nutritional sv screening: No deficits noted. Tuberculosis screening: No symptoms or risk factors identified. Fall Risk None identified. Assessment: 13:45 General: Appears in no apparent distress. uncomfortable, well developed, Behavior is sv calm, cooperative, appropriate for age. Pain: Complains of pain in left lateral anterior chest and left breast and anterior aspect of left upper chest Pain currently is 8 out of 10 on a pain scale. Quality of pain is described as sharp, tightness Pain began today Is intermittent. Neuro: Level of Consciousness is awake, alert, obeys commands, Oriented to person, place, time, situation, Moves all extremities. Full function Gait is steady, Speech is normal. Cardiovascular: Patient's skin is warm and dry. Rhythm is sinus rhythm. Respiratory: Airway is patent Respiratory effort is even, unlabored, Respiratory pattern is regular, symmetrical. Derm: Skin is normal, Rash noted that is itchy, red, raised, vesicular, on left subscapular area, left low back and left mid back and left breast and anterior aspect of left upper chest and left lateral anterior chest. Musculoskeletal: Range of motion: intact in all extremities. 15:00 Reassessment: Patient appears in no apparent distress at this time. Patient and/or sv family updated on plan of care and expected duration. Pain level reassessed. Patient is alert, oriented x 3, equal unlabored respirations, skin warm/dry/pink. Vital Signs: 13:32 BP 153 / 85; Pulse 102; Resp 20; Temp 98.6(TE); Pulse Ox 97% on R/A; Weight 97.52 kg aj1 (R); Height 6 ft. 1 in. (185.42 cm) (R); Pain 8/10; 14:35 BP 141 / 75; Pulse 88; Resp 15; Pulse Ox 95% ; sv 13:32 Body Mass Index 28.37 (97.52 kg, 185.42 cm) aj1 ED Course: 13:12 Patient arrived in ED. as 13:32 Triage completed. aj1 13:32 Arm band placed on. aj1 13:35 Magen Palacios MD is Attending Physician. rn 13:35 Patient maintains SpO2 saturation greater than 95% on room air. sv 13:38 Nirmala, Natalie, RN is Primary Nurse. sv 13:40 Patient has correct armband on for positive identification. Bed in low position. Call light in reach. manufacturing finance manager on. Pulse ox on. NIBP on. Door closed. Head of bed elevated. 13:45 ED physician to see patient. sv 13:51 X-ray(s) taken. sv 13:56 Initial lab(s) drawn, by mo, sent to lab. Inserted saline lock: 22 gauge in right kj1 forearm, using aseptic technique. Blood collected. 13:59 XRAY Chest (1 view) In Process Unspecified. EDMS 14:19 EKG done, by copier repair technician. reviewed by Magen Palacios MD. tc 15:14 No provider procedures requiring assistance completed. IV discontinued, intact, sv bleeding controlled, No redness/swelling at site. Pressure dressing applied. Administered Medications: 13:53 Drug: Decadron - Dexamethasone 10 mg Route: IVP; Infused Over: 2 mins; Site: right sv forearm; 15:00 Follow up: Response: No adverse reaction sv Outcome: 15:02 Discharge ordered by . rn 15:14 Patient left the ED. sg 15:14 Discharged to home ambulatory. sv 15:14 Condition: stable 15:14 Discharge instructions given to patient, Instructed on discharge instructions, follow up and referral plans. medication usage, stay away from mothers and young children Demonstrated understanding of instructions, follow-up care, medications, Prescriptions given X 3. Signatures: Dispatcher [employer] EDNM Nisha Butt RN RN aj1 Natalie Silvestre, Vikas Rm RN, RN RN sg Martinez, Amelia as Nieto, Roman, MD MD rn Callis, Tiffany, liaison inspection laboratory assistant EKG Edi Chavez Alejandra kj1
[2019-07-12 15:48] LABS: Blood Morphology Comment NOTED (NOT SEEN); Platelet Estimate ADEQ; Urine White Blood Cell Casts OK
[2019-07-12 15:49] LABS: Anisocytosis 1+; Hypochromasia 1+; Polychromasia SLIGHT
[2019-07-12 16:15] VITALS: BP 141/75; O2SAT 95
[2019-07-12 16:16] VITALS: TEMP 98.6
--- NOTE | 2019-07-13 06:21 | EKG ---
Test Date: 2019-07-12 Test Time: 14:07:02 Shell Freezing Machine Operator: ARTHUR MEASUREMENT RESULTS: Intervals: Rate: 88 SC: 140 QRSD: 82 QT: 360 QTc: 435 [place]: P: 65 SC: 140 QRS: -25 T: 63 INTERPRETIVE STATEMENTS: Normal sinus rhythm Cannot rule out Anterior infarct, age undetermined Abnormal ECG Compared to ECG 03/15/2019 12:57:07 Myocardial infarct finding now present Prolonged QT interval no longer present Electronically Signed On 07-13-19 06:20:39 [employer] by Enrrique Rivers
== END 2019-07-12 15:14 | disposition home or self-care (01) ==
LOC: ER 13:08
DX: B02.9 Zoster without complications (principal); I10 Essential (primary) hypertension; Z72.0 Tobacco use; Z88.6 Allergy status to analgesic agent; Z88.8 Allergy status to other drugs, medicaments and biological substances
CPT/HCPCS: 36415; 71045; 80048; 83880; 84484; 85025; 93005; 96374; 99285; J1100

== ENCOUNTER 2019-08-23 11:25 | Inpatient (IN) | payer SELFPAY ==
[2019-08-23] MEDS ORDERED: ASPIRIN 81 MG CHEWABLE TABLET ONE (11:56)
[2019-08-23] MEDS ORDERED: NA CHLORIDE 0.9% 1,000 ML ONE (11:57)
[2019-08-23 12:12] LABS: Absolute Lymphocytes (CBC) 0.9 K/uL (0.7-4.9); Basophils % 1.1 % (0-1.3); Hematocrit 36.5 % (39.6-49.0); Lymphocytes % 8.9 % (15.3-44.8); MPV 8.2 fL (7.6-11.3); RBC Red Blood Cell Count 5.19 M/uL (4.33-5.43)
--- NOTE | 2019-08-23 12:13 | RAD REPORT ---
EXAM DESCRIPTION: RAD - Chest Single View - 08/23/2019 12:04 pm CLINICAL HISTORY: CHEST PAIN Chest pain. COMPARISON: Chest Single View dated 07/12/2019; Chest Single View dated 03/15/2019; Chest Pa And Lat (2 Views) dated 10/12/2018; Chest Single View dated 09/17/2017 FINDINGS: Portable technique limits examination quality. The lungs are grossly clear. The heart is normal in size. No displaced fractures. IMPRESSION: No acute intrathoracic process suspected.
[2019-08-23 12:17] LABS: Protime INR 1.02
[2019-08-23 12:44] LABS: ALT/SGPT 29 U/L (12-78); AST/SGOT 12 U/L (15-37); Albumin 3.5 g/dL (3.4-5.0); Alkaline Phosphatase 67 U/L (45-117); BUN Blood Urea Nitrogen 9 mg/dL (7-18); Bicarbonate 20 mmol/L (21-32); Bilirubin Direct < 0.1 mg/dL (0-0.2); Bilirubin Total 0.2 mg/dL (0.2-1.0); Lipase 207 U/L (73-393); Magnesium 1.9 mg/dL (1.8-2.4); NT PRO-BNP 43 pg/mL (<125); Potassium 4.3 mmol/L (3.5-5.1); Protein, Total 6.9 g/dL (6.4-8.2); Sodium Level 136 mmol/L (136-145); Troponin (Emerg Dept Use Only) < 0.02 ng/mL (0.0-0.045)
[2019-08-23 12:47] LABS: Glucose Level 419 mg/dL (74-106)
[2019-08-23 13:18] LABS: Urine Blood NEGATIVE (NEG); Urine Glucose 2+ (NEG); Urine Protein NEGATIVE (NEG); Urine Specific Gravity <1.005 (1.005-1.030)
--- NOTE | 2019-08-23 13:26 | ER ---
Nurse's Notes [facility] Name: Neftali Gill Jr Age: 64 yrs Sex: Male : 1955 Arrival Date: 08/23/2019 Time: 11:28 Bed 23 Private MD: Mary Alberto Diagnosis: Other chest pain;Essential (primary) hypertension;Type 2 diabetes mellitus Presentation: 08/23 11:42 Presenting complaint: Patient states: left sided chest pain X 3 days, got worse today. iw Transition of care: patient was not received from another setting of care. Onset of symptoms was August 19, 2018. Risk Assessment: Do you want to hurt yourself or someone else? Patient reports no desire to harm self or others. Initial Sepsis Screen: Does the patient meet any 2 criteria? No. Patient's initial sepsis screen is negative. Does the patient have a suspected source of infection? No. Patient's initial sepsis screen is negative. Care prior to arrival: None. 11:42 Method Of Arrival: Ambulatory iw 11:42 Acuity: DUNCAN 3 iw Historical: - Allergies: 11:44 ACES; iw 11:44 Cephalexin; iw 11:44 Diovan; iw 11:44 Lisinopril; iw 11:44 nebivolol HCl; iw 11:44 NSAIDS; iw 11:44 valsartan; iw - Home Meds: 11:44 amlodipine 10 mg tab 1 tab once daily [Active]; gabapentin 600 mg Oral tab 1 tab 3 iw times per day [Active]; glipizide 10 mg Oral tab 1 tab once daily [Active]; hydralazine 25 mg Oral tab 2 times per day [Active]; metformin 1,000 mg Oral tab 1 tab 2 times per day [Active]; Nexium 40 mg Oral cpDR 1 cap once daily [Active]; prednisone 10 mg Oral tab once daily [Active]; - PMHx: 11:44 ANGIOEDEMA; GERD; High Cholesterol; Hypertension; NIDDM; iw - Immunization history:: Adult Immunizations up to date. - Ebola Screening: : Patient negative for fever greater than or equal to 101.5 degrees Fahrenheit, and additional compatible Ebola Virus Disease symptoms Patient denies exposure to infectious person Patient denies travel to an Ebola-affected area in the 21 days before illness onset No symptoms or risks identified at this time. - Social history:: Smoking status: Patient/guardian denies using tobacco. - Family history:: not pertinent. Screenin:50 Abuse screen: Denies threats or abuse. Denies injuries from another. Nutritional ca1 screening: No deficits noted. Tuberculosis screening: No symptoms or risk factors identified. Fall Risk IV access (20 points). Assessment: 11:50 General: Appears in no apparent distress. comfortable, Behavior is calm, cooperative, ca1 appropriate for age. Pain: Complains of pain in anterior aspect of left upper chest and left breast Pain radiates to left arm Pain currently is 7 out of 10 on a pain scale. Quality of pain is described as heavy, pressure, Pain began 1 day ago. Is intermittent, Also complains of nausea, shortness of breath. Neuro: Level of Consciousness is awake, alert, obeys commands, Oriented to person, place, time, situation, Appropriate for age. Cardiovascular: Heart tones S1 S2 present Capillary refill < 3 seconds Patient's skin is warm and dry. Pulses are all present. Rhythm is sinus rhythm. Cardiovascular: Reports lightheadedness, nausea. Respiratory: Reports shortness of breath Airway is patent Respiratory effort is even, unlabored, Respiratory pattern is regular, symmetrical, Breath sounds are clear bilaterally. GI: Abdomen is round non-distended, Bowel sounds present X 4 quads. Abd is soft and non tender X 4 quads. : No deficits noted. No signs and/or symptoms were reported regarding the genitourinary system. EENT: No deficits noted. No signs and/or symptoms were reported regarding the EENT system. Derm: Skin is intact, is healthy with good turgor, Skin is pink, warm \T\ dry. Musculoskeletal: Circulation, motion, and sensation intact. Capillary refill < 3 seconds, Range of motion: intact in all extremities. 12:58 Reassessment: Patient appears in no apparent distress at this time. Patient and/or ca1 family updated on plan of care and expected duration. Pain level reassessed. Patient is alert, oriented x 3, equal unlabored respirations, skin warm/dry/pink. 13:56 Reassessment: Patient appears in no apparent distress at this time. Patient and/or ca1 family updated on plan of care and expected duration. Pain level reassessed. Patient is alert, oriented x 3, equal unlabored respirations, skin warm/dry/pink. Pending Room assignment. 14:55 Reassessment: Patient appears in no apparent distress at this time. Patient and/or ca1 family updated on plan of care and expected duration. Pain level reassessed. Patient is alert, oriented x 3, equal unlabored respirations, skin warm/dry/pink. Pending Room assignment. 15:50 Reassessment: Patient appears in no apparent distress at this time. Patient is alert, ca1 oriented x 3, equal unlabored respirations, skin warm/dry/pink. Vital Signs: 11:44 BP 170 / 83; Pulse 78; Resp 16 S; Temp 98.2; Pulse Ox 100% on R/A; Pain 8/10; iw 12:58 BP 164 / 83; Pulse 85; Resp 16 S; Pulse Ox 97% on R/A; ca1 13:40 BP 165 / 75; Pulse 85; Resp 17 S; Pulse Ox 98% on R/A; ca1 14:30 BP 173 / 87; Pulse 82; Resp 17 S; Pulse Ox 98% on R/A; ca1 15:50 BP 166 / 82; Pulse 90; Resp 17 S; Pulse Ox 97% on R/A; ca1 ED Course: 11:28 Patient arrived in ED. mr 11:28 Mary Alberto is Private Physician. mr 11:32 Nelli Jimenes, ANSLEY is Primary Nurse. ca1 11:37 Enmanuel Ramirez MD is Attending Physician. mikayla 11:42 Triage completed. iw 11:44 Arm band placed on. iw 11:50 Patient has correct armband on for positive identification. Placed in gown. Bed in low ca1 position. Call light in reach. Side rails up X2. barrel inspector on. Pulse ox on. NIBP on. Warm blanket given. 12:01 No provider procedures requiring assistance completed. Initial lab(s) drawn, by pa, ca1 sent to lab. Inserted saline lock: 20 gauge in right forearm, using aseptic technique. Blood collected. Patient maintains SpO2 saturation greater than 95% on room air. 12:05 XRAY Chest (1 view) In Process Unspecified. EDMS 13:25 Camryn Jackson MD is Hospitalizing Provider. mikayla 13:33 CT Chest For PE Angio In Process Unspecified. EDMS 16:04 Patient admitted, IV remains in place. ca1 Administered Medications: 11:50 Drug: Aspirin Chewable Tablet 324 mg Route: PO; ca1 13:22 Follow up: Response: No adverse reaction ca1 12:02 Drug: NS 0.9% 1000 ml Route: IV; Rate: 125 ml/hr; Site: right forearm; ca1 15:08 Follow up: Urine output 440 ml; Response: No adverse reaction; IV Status: Infusion ca1 continued upon admission 13:42 Drug: Insulin Regular Human 10 units {Co-Signature: mg2 (Zac Dumont RN).} Route: ca1 IVP; Site: right antecubital; 15:13 Follow up: Response: No adverse reaction; Blood sugar is lowered ca1 13:45 Drug: Zofran 4 mg Route: IVP; Site: right antecubital; ca1 15:08 Follow up: Response: No adverse reaction; Nausea is decreased ca1 13:49 Drug: morphine 4 mg {Note: RASS - 0 RSS - 0.} Route: IVP; Site: right antecubital; ca1 15:09 Follow up: Response: No adverse reaction; Pain is decreased; RASS: Alert and Calm (0) ca1 Output: 15:08 Urine: 440ml; Total: 440ml. ca1 Outcome: 13:25 Decision to Hospitalize by Provider. mikayla 16:04 Admitted to Tele accompanied by tech, via wheelchair, room 423, with chart, Report ca1 called to ANSLEY Chavez 16:04 Condition: stable 16:04 Instructed on the need for admit. 16:07 Patient left the ED. ca1 Signatures: Dispatcher [employer] Enmanuel Galaviz MD MD cha Rivera, Nedra Birmingham RN RN iw Nelli Jimenes RN RN ca1 Zac Dumont RN mg2
--- NOTE | 2019-08-23 13:26 | EDPHYS ---
Physician Documentation [facility] Name: Neftali Gill Jr Age: 64 yrs Sex: Male : 1955 Arrival Date: 08/23/2019 Time: 11:28 Bed 23 Private MD: Mary Alberto ED Physician Enmanuel Ramirez HPI: 08/23 13:22 This 64 yrs old Black Male presents to ER via Ambulatory with complaints of Chest Pain. [facility] 13:22 The patient or guardian reports chest pain that is located primarily in the anterior mikayla chest wall, left. Onset: 3 day(s) ago. The pain does not radiate. Associated signs and symptoms: The patient has no apparent associated signs or symptoms. The chest pain is described as a pressure. Modifying factors: The symptoms are alleviated by nothing. the symptoms are aggravated by nothing. Severity of pain: At its worst the pain was mild in the emergency department the pain is unchanged. The patient has not experienced similar symptoms in the past. Historical: - Allergies: 11:44 ACES; iw 11:44 Cephalexin; iw 11:44 Diovan; iw 11:44 Lisinopril; iw 11:44 nebivolol HCl; iw 11:44 NSAIDS; iw 11:44 valsartan; iw - Home Meds: 11:44 amlodipine 10 mg tab 1 tab once daily [Active]; gabapentin 600 mg Oral tab 1 tab 3 iw times per day [Active]; glipizide 10 mg Oral tab 1 tab once daily [Active]; hydralazine 25 mg Oral tab 2 times per day [Active]; metformin 1,000 mg Oral tab 1 tab 2 times per day [Active]; Nexium 40 mg Oral cpDR 1 cap once daily [Active]; prednisone 10 mg Oral tab once daily [Active]; - PMHx: 11:44 ANGIOEDEMA; GERD; High Cholesterol; Hypertension; NIDDM; iw - Immunization history:: Adult Immunizations up to date. - Ebola Screening: : Patient negative for fever greater than or equal to 101.5 degrees Fahrenheit, and additional compatible Ebola Virus Disease symptoms Patient denies exposure to infectious person Patient denies travel to an Ebola-affected area in the 21 days before illness onset No symptoms or risks identified at this time. - Social history:: Smoking status: Patient/guardian denies using tobacco. - Family history:: not pertinent. ROS: 13:23 Constitutional: Negative for fever, chills, and weight loss, Eyes: Negative for injury, mikayla pain, redness, and discharge, ENT: Negative for injury, pain, and discharge, Neck: Negative for injury, pain, and swelling, Cardiovascular: Negative for chest pain, palpitations, and edema, Respiratory: Negative for shortness of breath, cough, wheezing, and pleuritic chest pain, Abdomen/GI: Negative for abdominal pain, nausea, vomiting, diarrhea, and constipation, Back: Negative for injury and pain, : Negative for injury, bleeding, discharge, and swelling, MS/Extremity: Negative for injury and deformity, Skin: Negative for injury, rash, and discoloration, Neuro: Negative for headache, weakness, numbness, tingling, and seizure, Psych: Negative for depression, anxiety, suicide ideation, homicidal ideation, and hallucinations, Allergy/Immunology: Negative for hives, rash, and allergies, Endocrine: Negative for neck swelling, polydipsia, polyuria, polyphagia, and marked weight changes, Hematologic/Lymphatic: Negative for swollen nodes, abnormal bleeding, and unusual bruising. 13:23 MS/extremity: Negative for pain. Exam: 13:23 Constitutional: This is a well developed, well nourished patient who is awake, alert, mikayla and in no acute distress. Head/Face: Normocephalic, atraumatic. Eyes: Pupils equal round and reactive to light, extra-ocular motions intact. Lids and lashes normal. Conjunctiva and sclera are non-icteric and not injected. Cornea within normal limits. Periorbital areas with no swelling, redness, or edema. ENT: Nares patent. No nasal discharge, no septal abnormalities noted. Tympanic membranes are normal and external auditory canals are clear. Oropharynx with no redness, swelling, or masses, exudates, or evidence of obstruction, uvula midline. Mucous membranes moist. Neck: Trachea midline, no thyromegaly or masses palpated, and no cervical lymphadenopathy. Supple, full range of motion without nuchal rigidity, or vertebral point tenderness. No Meningismus. Chest/axilla: Normal chest wall appearance and motion. Nontender with no deformity. No lesions are appreciated. Cardiovascular: Regular rate and rhythm with a normal S1 and S2. No gallops, murmurs, or rubs. Normal PMI, no JVD. No pulse deficits. Respiratory: Lungs have equal breath sounds bilaterally, clear to auscultation and percussion. No rales, rhonchi or wheezes noted. No increased work of breathing, no retractions or nasal flaring. Abdomen/GI: Soft, non-tender, with normal bowel sounds. No distension or tympany. No guarding or rebound. No evidence of tenderness throughout. Back: No spinal tenderness. No costovertebral tenderness. Full range of motion. Male : Normal genitalia with no discharge or lesions. Skin: Warm, dry with normal turgor. Normal color with no rashes, no lesions, and no evidence of cellulitis. MS/ Extremity: Pulses equal, no cyanosis. Neurovascular intact. Full, normal range of motion. Neuro: Awake and alert, GCS 15, oriented to person, place, time, and situation. Cranial nerves II-XII grossly intact. Motor strength 5/5 in all extremities. Sensory grossly intact. Cerebellar exam normal. Normal gait. Psych: Awake, alert, with orientation to person, place and time. Behavior, mood, and affect are within normal limits. Vital Signs: 11:44 BP 170 / 83; Pulse 78; Resp 16 S; Temp 98.2; Pulse Ox 100% on R/A; Pain 8/10; iw 12:58 BP 164 / 83; Pulse 85; Resp 16 S; Pulse Ox 97% on R/A; ca1 13:40 BP 165 / 75; Pulse 85; Resp 17 S; Pulse Ox 98% on R/A; ca1 14:30 BP 173 / 87; Pulse 82; Resp 17 S; Pulse Ox 98% on R/A; ca1 15:50 BP 166 / 82; Pulse 90; Resp 17 S; Pulse Ox 97% on R/A; ca1 MDM: 11:37 Patient medically screened. [facility] 13:24 Data reviewed: vital signs, nurses notes, lab test result(s), EKG, radiologic studies, [facility] CT scan, plain films. 08/23 11:38 Order name: Basic Metabolic Panel [facility] 08/23 11:38 Order name: CBC with Diff [facility] 08/23 11:38 Order name: LFT's [facility] 08/23 11:38 Order name: Magnesium; Complete Time: 13:17 [facility] 08/23 11:38 Order name: NT PRO-BNP; Complete Time: 13:17 [facility] 08/23 11:38 Order name: PT-INR; Complete Time: 13:17 [facility] 08/23 11:38 Order name: Troponin (emerg Dept Use Only); Complete Time: 13:17 [facility] 08/23 11:38 Order name: Lipase; Complete Time: 13:17 [facility] 08/23 11:39 Order name: Basic Metabolic Panel; Complete Time: 13:17 [facility] 08/23 11:39 Order name: CBC with Automated Diff; Complete Time: 14:11 [facility] 08/23 11:39 Order name: Liver (Hepatic) Function; Complete Time: 13:17 [facility] 08/23 12:31 Order name: Urine Dipstick--Ancillary (enter results); Complete Time: 13:20 08/23 13:27 Order name: Manual Differential; Complete Time: 14:11 [facility] 08/23 15:24 Order name: Glucose, Ancillary Testing [facility] 08/23 11:38 Order name: XRAY Chest (1 view); Complete Time: 13:17 [facility] 08/23 11:38 Order name: EKG; Complete Time: 11:40 [facility] 08/23 11:38 Order name: Cardiac monitoring; Complete Time: 11:49 [facility] 08/23 11:38 Order name: EKG - Nurse/Tech; Complete Time: 11:49 [facility] 08/23 11:38 Order name: IV Saline Lock; Complete Time: 12:07 [facility] 08/23 11:38 Order name: Labs collected and sent; Complete Time: 12:07 [facility] 08/23 11:38 Order name: O2 Per Protocol; Complete Time: 11:49 [facility] 08/23 11:38 Order name: O2 Sat Monitoring; Complete Time: 11:49 [facility] 08/23 13:21 Order name: CT Chest For PE Angio; Complete Time: 14:11 [facility] 08/23 15:05 Order name: CONS Pharmacy Consult [facility] 08/23 15:18 Order name: Diet Ada 2000 Marcio; Complete Time: 15:37 08/23 11:38 Order name: Urine Dipstick-Ancillary (obtain specimen); Complete Time: 12:24 [facility] Administered Medications: 11:50 Drug: Aspirin Chewable Tablet 324 mg Route: PO; ca1 13:22 Follow up: Response: No adverse reaction ca1 12:02 Drug: NS 0.9% 1000 ml Route: IV; Rate: 125 ml/hr; Site: right forearm; ca1 15:08 Follow up: Urine output 440 ml; Response: No adverse reaction; IV Status: Infusion ca1 continued upon admission 13:42 Drug: Insulin Regular Human 10 units {Co-Signature: mg2 (Zac Dumont RN).} Route: ca1 IVP; Site: right antecubital; 15:13 Follow up: Response: No adverse reaction; Blood sugar is lowered ca1 13:45 Drug: Zofran 4 mg Route: IVP; Site: right antecubital; ca1 15:08 Follow up: Response: No adverse reaction; Nausea is decreased ca1 13:49 Drug: morphine 4 mg {Note: RASS - 0 RSS - 0.} Route: IVP; Site: right antecubital; ca1 15:09 Follow up: Response: No adverse reaction; Pain is decreased; RASS: Alert and Calm (0) ca1 Disposition: 08/23/19 13:25 Hospitalization ordered by Camryn Jackson for Observation. Preliminary diagnosis are Other chest pain, Essential (primary) hypertension, Type 2 diabetes mellitus. - Bed requested for Telemetry/MedSurg (observation). - Status is Observation. ca1 - Condition is Stable. - Problem is new. - Symptoms have improved. UTI on Admission? No Signatures: Dispatcher [employer] EDMS Susi Forte Corey, MD MD cha Williams, Irene, ANSLEY RN iw Nelli Jimenes, RN RN ca1 Zac Dumont RN mg2 Corrections: (The following items were deleted from the chart) 15:40 13:25 Hospitalization Ordered by Camryn Jackson MD for Observation. Preliminary diagnosis is bd Other chest pain; Essential (primary) hypertension; Type 2 diabetes mellitus. Bed requested for Telemetry/MedSurg (observation). Status is Observation. Condition is Stable. Problem is new. Symptoms have improved. UTI on Admission? No. mikayla 15:45 15:40 08/23/2019 13:25 Hospitalization Ordered by Camryn Jackson MD for Observation. bd Preliminary diagnosis is Other chest pain; Essential (primary) hypertension; Type 2 diabetes mellitus. Bed requested for Telemetry/MedSurg (observation). Status is Observation. Condition is Stable. Problem is new. Symptoms have improved. UTI on Admission? No. bd 16:07 15:45 08/23/2019 13:25 Hospitalization Ordered by Camryn Jackson MD for Observation. ca1 Preliminary diagnosis is Other chest pain; Essential (primary) hypertension; Type 2 diabetes mellitus. Bed requested for Telemetry/MedSurg (observation). Status is Observation. Condition is Stable. Problem is new. Symptoms have improved. UTI on Admission? No. bd
[2019-08-23 13:27] LABS: Anisocytosis 1+; Blood Morphology Comment NOTED (NOT SEEN); Hypochromasia 1+; Platelet Estimate ADEQ; Platelets, Giant PRESENT; Polychromasia 1+
[2019-08-23] MEDS ORDERED: MORPHINE 4 MG/ML SYR ONE (13:28)
[2019-08-23] MEDS ORDERED: ONDANSETRON 4 MG/2 ML VIAL ONE (13:28)
[2019-08-23] MEDS ORDERED: INSULIN -REGULAR HUMAN 50 UNIT/0.5 ML ML ONE (13:28)
--- NOTE | 2019-08-23 13:56 | RAD REPORT ---
EXAM DESCRIPTION: CT - Chest For Pe Angio - 08/23/2019 1:33 pm CLINICAL HISTORY: CHEST PAIN COMPARISON: Chest For Pe Angio dated 05/27/2017; Chest Single View dated 08/23/2019 TECHNIQUE: Dynamically enhanced 3 mm thick images of the chest were obtained during administration o f approximately 150mL Isovue 370 IV contrast. Coronal and oblique MIP reconstruction images were gene rated and reviewed. Exam utilizes a protocol to evaluate the pulmonary arterial tree. All CT scans are performed using dose optimization technique as appropriate and may include automated exposure control or mA/KV adjustment according to patient size. FINDINGS: No pulmonary emboli are identified. Far peripheral posterior lung base branches are more d ifficult to evaluate due to presence of motion. Likelihood of embolic disease is felt to be very low. The aorta as imaged shows no acute or suspicious finding. No pericardial thickening or effusion. No focal mass or consolidation. Interstitial markings are prominent, mostly due to motion degradation . Mild interstitial edema or infiltrate cannot be excluded. No endobronchial lesions are present. No pleural effusion or pleural thickening. No mediastinal or hilar suspicious masses. No chest wall masses or abnormal axillary lymphadenopathy. Mediastinal or left hilar granulomatous calcifications are present. IMPRESSION: No pulmonary emboli identified. No focal mass or consolidation. Exam has motion degradation. Mild interstitial edema or infiltrate ca nnot be excluded.
[2019-08-23] MEDS ORDERED: ONDANSETRON 4 MG/2 ML VIAL IV PRN (15:02)
--- NOTE | 2019-08-23 15:02 | P.HP ---
Certification for Inpatient Patient admitted to: Observation Practitioner: I am a practitioner with admitting privileges, knowledge of patient current condition, hospital course, and medical plan of care. Services: Services provided to patient in accordance with Admission requirements found in Title 42 Section 412.3 of the Code of Federal Regulations Patient History Date of Service: 08/23/19 Reason for admission: Chest pain History of Present Illness: Mr. Gill is 64 y/o male with history of diabetes mellitus, hypertension opal presented to the emergency room with complaints of left-sided chest pain started 3-4 days ago. Chest pain was of low intensity however overnight increased intensity to 10/10. He reported pain awoke him from sleep, associated with shortness of breath. Pain is nonradiating, associated with tingling sensation of the left arm extending to the fingers. He denies history of similar pain. He described this pain as a "pain". He denies any trauma to the area. Patient has a history of GERD on PPI. Allergies lisinopril Allergy (Severe, Verified 10/12/18 14:39) Anaphylaxis NSAIDS (Non-Steroidal Anti-Inflamma Allergy (Severe, Verified 10/12/18 14:39) Anaphylaxis valsartan [From Diovan HCT] Allergy (Intermediate, Verified 10/12/18 14:39) SWELLING OF TONGUE nebivolol HCl [From Bystolic] Allergy (Verified 10/12/18 14:39) Shortness of breath cephalexin [From Keflex] Adverse Reaction (Verified 10/12/18 14:39) Anaphylaxis ACES Allergy (Uncoded 10/12/18 14:39) Unknown Home Medications: Esomeprazole Magnesium [Nexium] 40 mg PO DAILY 07/29/16 Glipizide [Glipizide ER] 10 mg PO DAILY 07/29/16 Metformin ER [Glucophage ER*] 1,000 mg PO BID 07/29/16 Gabapentin [Neurontin*] 600 mg PO TID 08/29/16 Amlodipine [Norvasc*] 10 mg PO [id number] 08/14/17 Cetirizine HCl [Zyrtec] 10 mg PO DAILY #30 tablet 10/03/18 Hydralazine HCl [Apresoline] 25 mg PO TID 10/03/18 Hydrocodone 10/APAP 325 [[place] 10/325*] 1 tab PO Q6H PRN 10/12/18 Pravastatin Sodium [Pravachol] 20 mg PO DAILY 10/12/18 hydrOXYzine pamoate [Hydroxyzine Pamoate] 25 mg PO TID 10/12/18 predniSONE [Prednisone*] 10 mg PO DAILY 10/12/18 levoFLOXacin [Levaquin] 750 mg PO DAILY #6 tab 10/13/18 - Past Medical/Surgical History Diabetic: Yes -: HTN -: Hyperlipidemia -: Diabetes mellitus type 2 -: Diabetic neuropathy -: Fatty liver -: Diabetic gastroparesis -: History of anaphylaxis with TIERRA inhibitors,Arb inhibitors,NSAIDS,Beta block -: Osteoarthritis -: GERD -: Tobacco abuse -: Alcohol use -: TRACHEOSTOMY -: CHOLECYSTECTOMY -: appendectomy Psychosocial/ Personal History: He is single, has 3 children, 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 - Family History Brother -: Hypertension Mother -: Hypertension - Social History Smoking Status: Current some day smoker Alcohol use: No CD- Drugs: No Caffeine use: Yes Review of Systems 10-point ROS is otherwise unremarkable Respiratory: Shortness of Breath Cardiovascular: Chest Pain Physical Examination - Physical Exam General: Alert, In no apparent distress HEENT: Atraumatic, Normocephalic Neck: Supple, 2+ carotid pulse no bruit Respiratory: Clear to auscultation bilaterally, Normal air movement Cardiovascular: No edema, Normal pulses Gastrointestinal: Normal bowel sounds, Soft and benign Musculoskeletal: No clubbing, No swelling Integumentary: No rashes, No breakdown, No significant lesion Neurological: Normal gait, Normal speech, Normal strength at 5/5 x4 extr Lymphatics: No axilla or inguinal lymphadenopathy - Studies Laboratory Data (last 24 hrs) 08/23/19 12:01: PT 12.0, INR 1.02 08/23/19 12:01: WBC 10.3, Hgb 11.4 L, Hct 36.5 L, Plt Count 341 08/23/19 12:01: Sodium 136, Potassium 4.3, BUN 9, Creatinine 1.16, Glucose 419 H *, Magnesium 1.9, Total Bilirubin 0.2, AST 12 L, ALT 29, Alkaline Phosphatase 67 , Lipase 207 Assessment and Plan - Plan Mr. Gill is a 64-year-old male presented with chest pain. # Chest pain-rule out ACS. Troponin x1 negative. EKG with no acute ischemic changes. -patient with significant risk factors. -will trend troponin. -continue statin. Patient with possibly allergy to NSAIDs. Hold off on aspirin for now. -Obtain echocardiogram. -will rule out GI etiology. Patient has a history of gastroparesis. Currently denies any nausea or vomiting. -service clerk for further assistance. #Diabetes mellitus-appears to be uncontrolled. Check hemoglobin A1c. -BG AC and HS and cover with insulin sliding scale. -hold metformin. # Hypertension- resume home medications. -monitor blood pressure closely. DVT ppx- SCD Patient is full code Dispo- obs admission - Advance Directives Does patient have a Living Will: No Does patient have a Durable POA for Healthcare: No
[2019-08-23] MEDS: MORPHINE 2 MG/ML SYR IV PRN ×2 (16:24→20:10)
[2019-08-23] MEDS ORDERED: HYDRALAZINE HCL 20 MG/ML VIAL IV ONE (16:34)
[2019-08-23] MEDS: NITROGLYCERIN 0.4 MG/TAB SL PRN ×2 (16:41→16:55)
[2019-08-23 16:47] VITALS: BMI 28.3
[2019-08-23] MEDS: INSULIN -REGULAR HUMAN 50 UNIT/0.5 ML ML SQ SCH ×2 (17:29→20:09)
[2019-08-23] MEDS: ATORVASTATIN 10 MG TAB PO SCH (20:09)
[2019-08-23] MEDS: GABAPENTIN 300 MG CAP PO SCH (20:09)
[2019-08-23] MEDS: HYDRALAZINE HCL 25 MG TABLET PO SCH (20:09)
--- NOTE | 2019-08-23 20:53 | EKG ---
Test Date: 2019-08-23 Test Time: 17:46:41 Flat[place] Catcher: ZENY MEASUREMENT RESULTS: Intervals: Rate: 78 AK: 142 QRSD: 86 QT: 392 QTc: 446 [place]: P: 64 AK: 142 QRS: -7 T: 9 INTERPRETIVE STATEMENTS: Normal sinus rhythm Normal ECG Compared to ECG 08/23/2019 11:41:33 No significant changes Electronically Signed On 08-23-19 20:52:49 BOX SPINNER by Angelo Araiza
--- NOTE | 2019-08-23 20:55 | EKG ---
Test Date: 2019-08-23 Test Time: 11:41:33 Stress Test Technician: JUAN ALBERTO MEASUREMENT RESULTS: Intervals: Rate: 86 FL: 136 QRSD: 82 QT: 370 QTc: 442 [place]: P: 63 FL: 136 QRS: -23 T: 49 INTERPRETIVE STATEMENTS: Normal sinus rhythm Possible Left atrial enlargement Borderline ECG Compared to ECG 07/12/2019 14:07:02 Myocardial infarct finding no longer present Electronically Signed On 08-23-19 20:53:33 CHAIN MAKER HAND by Angelo Araiza
[2019-08-23] MEDS ORDERED: HOME MED 1 EA UNK (Hydralazine Hcl [Apresoline] 25 MG) PO SCH (21:00)
[2019-08-24] MEDS: MORPHINE 2 MG/ML SYR IV PRN ×5 (00:14→23:48)
[2019-08-24] MEDS: AMLODIPINE 10 MG TAB PO SCH (05:11)
[2019-08-24] MEDS: INSULIN -REGULAR HUMAN 50 UNIT/0.5 ML ML SQ SCH ×4 (07:30→20:30)
[2019-08-24] MEDS ORDERED: REGADENOSON 0.4 MG/5 ML SYR IV ONE (08:09)
[2019-08-24] MEDS: HYDRALAZINE HCL 25 MG TABLET PO SCH ×3 (08:26→19:38)
[2019-08-24] MEDS: PANTOPRAZOLE 40MG TABLET PO SCH (08:26)
[2019-08-24] MEDS: GABAPENTIN 300 MG CAP PO SCH ×3 (08:26→19:38)
[2019-08-24] MEDS ORDERED: HOME MED 1 EA UNK (Pravastatin Sodium [Pravachol] 20 MG) PO SCH (09:00)
[2019-08-24] MEDS ORDERED: HOME MED 1 EA UNK (Esomeprazole Magnesium [Nexium] 40 MG) PO SCH (09:00)
--- NOTE | 2019-08-24 09:55 | RAD REPORT ---
EXAM DESCRIPTION: NM - Rest Stress Cardiac Imaging - 08/24/2019 9:41 am CLINICAL HISTORY: CP Chest pain. COMPARISON: Rest Stress Cardiac Imaging dated 07/31/2016 TECHNIQUE: The patient was administered approximately 10mCi of Tc 99m Sestamibi prior to resting SPE CT imaging of the heart. The patient was then administered approximately 30 mCi of Tc 99m Sestamibi f ollowing exercise or pharmacologic stress. Multiplanar SPECT images were reviewed. FINDINGS: No stress induced ischemic defect is seen to suggest stress induced ischemia. No fixed def ect is seen to suggest hibernating myocardium or scarred myocardium. The end diastolic volume is 133 ml, the end systolic volume is 53 ml, and the ejection fraction is 60 %. IMPRESSION: No stress induced ischemia.
[2019-08-24] MEDS ORDERED: MORPHINE 2 MG/ML SYR IV ONE (09:57)
[2019-08-24] MEDS ORDERED: COLCHICINE 0.6 MG TAB PO ONE (10:11)
[2019-08-24 10:43] LABS: Absolute Lymphocytes (CBC) 2.3 K/uL (0.7-4.9); Basophils % 0.7 % (0-1.3); Hematocrit 37.2 % (39.6-49.0); Lymphocytes % 20.2 % (15.3-44.8); MPV 7.4 fL (7.6-11.3); RBC Red Blood Cell Count 5.36 M/uL (4.33-5.43)
--- NOTE | 2019-08-24 10:50 | ECHO ---
HEIGHT: 6 ft 1 in WEIGHT: 215 lb 0 oz DATE OF STUDY: 08/24/[address]: Jhonatan Guerrero 2-DIMENSIONAL: YES M.MODE: YES DOPPLER: YES COLOR FLOW: YES TDS: NO PORTABLE: NO DEFINITY: NO BUBBLE STUDY: NO DIAGNOSIS: CHEST PAIN CARDIAC HISTORY: CATHERIZATION: NO SURGERY: NO PROSTHETIC VALVE: NO PACEMAKER: NO MEASUREMENTS (cm) DIASTOLIC (NORMALS) SYSTOLIC (NORMALS) IVSd 1.0 (0.6-1.2) LA Diam 3.4 (1.9-4.0) LVEF 54% LVIDd 4.7 (3.5-5.7) LVIDs 3.4 (2.0-3.5) %FS 28% LVPWd 1.1 (0.6-1.2) Ao Diam 3.1 (2.0-3.7) 2 DIMENSIONAL ASSESSMENT: RIGHT ATRIUM: NORMAL LEFT ATRIUM: NORMAL RIGHT VENTRICLE: NORMAL LEFT VENTRICLE: NORMAL TRICUSPID VALVE: NORMAL MITRAL VALVE: NORMAL PULMONIC VALVE: NORMAL AORTIC VALVE: NORMAL PERICARDIAL EFFUSION: NONE AORTIC ROOT: NORMAL LEFT VENTRICULAR WALL MOTION: NORMAL DOPPLER/COLOR FLOW: PHYSIOLOGIC TRICUSPID REGURGITATION. NORMAL RIGHT VENTRICULAR SYSTOLIC PRESSURE. COMMENTS: NORMAL 2D ECHOCARDIOGRAM WITH DOPPLER. TECHNOLOGIST: Jarred VERA
[2019-08-24 11:02] LABS: ALT/SGPT 28 U/L (12-78); AST/SGOT 14 U/L (15-37); Albumin 3.7 g/dL (3.4-5.0); Alkaline Phosphatase 64 U/L (45-117); BUN Blood Urea Nitrogen 8 mg/dL (7-18); Bicarbonate 27 mmol/L (21-32); Bilirubin Total 0.3 mg/dL (0.2-1.0); Glucose Level 228 mg/dL (74-106); Potassium 3.6 mmol/L (3.5-5.1); Protein, Total 7.2 g/dL (6.4-8.2); Sodium Level 140 mmol/L (136-145)
--- NOTE | 2019-08-24 11:03 | TREADPHA ---
DX: CHEST PAIN Date of Study: 08/24/2019 Ht: 6 1 Wt: 215 lb 0 oz Consulting Physician: ELIAZAR MEDICATIONS: NORVASC, LIPITOR, NOVOIN-R, APRESOLINE, NITROSTAT HISTORY: 64 YEAR OLD MALE WITH HISTORY OF HYPERLIPIDEMIA, HYPERTENSION, NON INSULIN DEPENDENT DIABETES MELLITUS, GERD, ONE CIGARETTE WEEKLY AND NON DRINKER. PHYSICIAL EXAMINATION: RESTING B.P.: 164/77 RESTING H.R.: 67 RESTING EKG: SINUS WITH PREMTURE VENTRICULAR COMPLEXES. PROTOCOL: LEXISCAN EXERCISE TIME: 3:30 B.P. AT [place]AK STRESS: 168/62 IMPRESSION: LEXISCAN INJECTED, FOLLOWED BY CARDIOLITE PER PROTOCOL. SEE NUCLEAR MEDICINE REPORT. NO SUPARVENTRICULAR TACHYCARDIA, VENTRICULAR TACHYCARDIA OR PREMATURE ATRIAL COMPLEXES NOTED. FREQUENT PREMATURE VENTRICULAR COMPLEXES. PATIENT REPORTED CHEST PAIN 7/10 DURING. NON DIAGNOSTIC EKG WITH LEXISCAN STRESS.
[2019-08-24] MEDS: AZITHROMYCIN IV 500 MG in NA CHLORIDE 0.9% 250 ML IVPB SCH (12:22)
[2019-08-24] MEDS: Levofloxacin 750mg IV 750 MG/150 ML BAG IV SCH (12:22)
--- NOTE | 2019-08-24 12:37 | P.PN ---
Subjective Date of Service: 08/24/19 Chief Complaint: Chest pain s/p stress test. L sided CP, pleuritic. Physical Examination - Vital Signs Temperature: 97.8 F Blood Pressure: 167/71 Pulse: 79 Respirations: 18 Pulse Ox (%): 98 - Physical Exam General: Alert, In no apparent distress HEENT: Atraumatic, PERRLA, EOMI Neck: Supple, JVD not distended Respiratory: Diminished, Crackles/rales Cardiovascular: Regular rate/rhythm, Normal S1 S2 Gastrointestinal: Normal bowel sounds, No tenderness Musculoskeletal: No tenderness Integumentary: No rashes Neurological: Normal speech, Normal tone, Normal affect Lymphatics: No axilla or inguinal lymphadenopathy - Studies Laboratory Data (last 24 hrs) 08/23/19 12:01: WBC 10.3, Hgb 11.4 L, Hct 36.5 L, Plt Count 341 08/23/19 12:01: Sodium 136, Potassium 4.3, BUN 9, Creatinine 1.16, Glucose 419 H *, Magnesium 1.9, Total Bilirubin 0.2, AST 12 L, ALT 29, Alkaline Phosphatase 67 , Lipase 207 Assessment And Plan - Plan Mr. Gill is a 64-year-old male presented with chest pain. # Chest pain-ruled out ACS. serial trop negative. EKG with no acute ischemic changes. -s/p stress test. Negative. -continue statin. Echo wnl. -veterinarian laboratory animal care on consult -PE ruled out with CTA chest. #Community-acquired pneumonia-suspected. -CT chest is inconclusive. -check procalcitonin. -initiate IV antibiotics pending work up. -IS, Duoneb, Pain control. -cultures pending #Diabetes mellitus-appears to be uncontrolled. Check hemoglobin A1c 8.1. -BG AC and HS and cover with insulin sliding scale. -hold metformin. # Hypertension- resume home medications. -monitor blood pressure closely. DVT ppx- SCD Patient is full code Dispo- pending clinical improvement.
[2019-08-24 12:55] LABS: Anisocytosis 2+; Blood Morphology Comment NOTED (NOT SEEN); Hypochromasia 1+; Platelet Estimate ADEQ; Poikilocytosis 1+
[2019-08-24] MEDS: ALBUTEROL 2.5 MG/3 ML NEB SOL NEB SCH ×2 (13:45→20:25)
--- NOTE | 2019-08-24 14:17 | CON ---
History Of Present Illness: Mr. Gill is 64. He came to the hospital with chest pain. His chest pain started 48 hours before, left-sided lower left rib cage, lower anterior axillary region, pleurit ic in nature that has gotten worse when taking a deep breath, improved with sitting forward. It was there for 48 hours before he came in. Since being in the hospital, he has had a CT angio of the ches t that is normal. Also an electrocardiogram that did not show infarction, injury, or ischemia; and c ardiac enzymes are normal. He is mildly anemic. He has very elevated blood sugar. He has underlyin g diabetes and hypertension. Does not use tobacco. No history of myocardial infarction or stroke. Symptoms do not sound very much like angina at all. Physical Examination: General: 6 feet 1 inch, 215 pounds. Alert, oriented, pleasant, not in distress. Lungs: Clear. Cardiac: Normal. Carotids: No bruit. Extremities: Normal pulses. A nuclear stress test has been completed at this point, it shows normal findings and no stress-induce d ischemia. I think we are dealing with pericarditis. I am going to treat him with colchicine and w ill avoid steroids because of his very elevated blood sugars and see if we can relieve his pain with that. GRISELDA/OPAL Voice ID: [id number] Report ID: [id number]
[2019-08-24] MEDS: COLCHICINE 0.6 MG TAB PO SCH (19:38)
[2019-08-24] MEDS: ATORVASTATIN 10 MG TAB PO SCH (19:39)
[2019-08-25] MEDS: ALBUTEROL 2.5 MG/3 ML NEB SOL NEB SCH ×4 (02:20→19:30)
[2019-08-25 04:23] LABS: Absolute Lymphocytes (CBC) 2.1 K/uL (0.7-4.9); Basophils % 0.4 % (0-1.3); Lymphocytes % 24.9 % (15.3-44.8); RBC Red Blood Cell Count 4.87 M/uL (4.33-5.43)
[2019-08-25 04:31] LABS: BUN Blood Urea Nitrogen 9 mg/dL (7-18); Bicarbonate 27 mmol/L (21-32); Glucose Level 217 mg/dL (74-106); Magnesium 2.2 mg/dL (1.8-2.4); Potassium 3.7 mmol/L (3.5-5.1); Sodium Level 140 mmol/L (136-145)
[2019-08-25] MEDS: MORPHINE 2 MG/ML SYR IV PRN ×4 (04:34→21:32)
[2019-08-25] MEDS: AMLODIPINE 10 MG TAB PO SCH (05:07)
[2019-08-25] MEDS: PANTOPRAZOLE 40MG TABLET PO SCH (08:09)
[2019-08-25] MEDS: COLCHICINE 0.6 MG TAB PO SCH ×2 (08:09→21:32)
[2019-08-25] MEDS: HYDRALAZINE HCL 25 MG TABLET PO SCH ×4 (08:09→21:32)
[2019-08-25] MEDS: GABAPENTIN 300 MG CAP PO SCH ×3 (08:09→21:32)
[2019-08-25] MEDS: INSULIN -REGULAR HUMAN 50 UNIT/0.5 ML ML SQ SCH ×4 (08:10→21:36)
[2019-08-25] MEDS: AZITHROMYCIN IV 500 MG in NA CHLORIDE 0.9% 250 ML IVPB SCH (08:23)
[2019-08-25] MEDS: Levofloxacin 750mg IV 750 MG/150 ML BAG IV SCH (11:07)
--- NOTE | 2019-08-25 12:49 | P.PN ---
Subjective Date of Service: 08/25/19 Chief Complaint: Chest pain Subjective: No new changes still with L sided CP, pleuritic. Physical Examination - Vital Signs Temperature: 97.2 F Blood Pressure: 155/74 Pulse: 84 Respirations: 16 Pulse Ox (%): 99 - Physical Exam General: Alert, In no apparent distress HEENT: Atraumatic, PERRLA, EOMI Neck: Supple, JVD not distended Respiratory: Diminished, Crackles/rales Cardiovascular: Regular rate/rhythm, Normal S1 S2 Gastrointestinal: Normal bowel sounds, No tenderness Musculoskeletal: No tenderness Integumentary: No rashes Neurological: Normal speech, Normal tone, Normal affect Lymphatics: No axilla or inguinal lymphadenopathy - Studies Laboratory Data (last 24 hrs) 08/25/19 03:33: Sodium 140, Potassium 3.7, BUN 9, Creatinine 0.85, Glucose 217 H , Magnesium 2.2 08/25/19 03:33: WBC 8.3 D, Hgb 10.5 L, Hct 34.0 L, Plt Count 303 Medications List Reviewed: Yes Assessment And Plan - Plan Mr. Gill is a 64-year-old male presented with chest pain. # Chest pain-ruled out ACS. serial trop negative. EKG with no acute ischemic changes. -s/p stress test. Negative. -continue statin. Echo wnl. -communications analyst on consult -PE ruled out with CTA chest. #Community-acquired pneumonia-suspected. -CT chest is inconclusive. -procalcitonin elevated. -continue IV antibiotics. -IS, Duoneb, Pain control. -cultures pending #Diabetes mellitus-appears to be uncontrolled. Check hemoglobin A1c 8.1. -BG AC and HS and cover with insulin sliding scale. -hold metformin. # Hypertension- resume home medications. -monitor blood pressure closely. DVT ppx- SCD Patient is full code Dispo- pending clinical improvement.
[2019-08-25] MEDS: HYDROCODONE/APAP 10/325 TAB PO PRN (13:35)
[2019-08-25] MEDS: ATORVASTATIN 10 MG TAB PO SCH (21:32)
[2019-08-26] MEDS: ALBUTEROL 2.5 MG/3 ML NEB SOL NEB SCH ×4 (01:35→20:20)
[2019-08-26] MEDS: MORPHINE 2 MG/ML SYR IV PRN ×4 (01:49→19:42)
[2019-08-26 05:54] LABS: BUN Blood Urea Nitrogen 6 mg/dL (7-18); Bicarbonate 26 mmol/L (21-32); Glucose Level 195 mg/dL (74-106); Potassium 3.6 mmol/L (3.5-5.1); Sodium Level 140 mmol/L (136-145)
[2019-08-26] MEDS: AMLODIPINE 10 MG TAB PO SCH (06:22)
[2019-08-26] MEDS: COLCHICINE 0.6 MG TAB PO SCH ×2 (08:48→20:57)
[2019-08-26] MEDS: GABAPENTIN 300 MG CAP PO SCH ×3 (08:48→20:56)
[2019-08-26] MEDS: INSULIN -REGULAR HUMAN 50 UNIT/0.5 ML ML SQ SCH ×4 (08:49→20:55)
[2019-08-26] MEDS: HYDRALAZINE HCL 25 MG TABLET PO SCH ×3 (08:49→20:57)
[2019-08-26] MEDS: PANTOPRAZOLE 40MG TABLET PO SCH (08:49)
[2019-08-26] MEDS: AZITHROMYCIN IV 500 MG in NA CHLORIDE 0.9% 250 ML IVPB SCH (08:50)
[2019-08-26] MEDS: HYDROCODONE/APAP 10/325 TAB PO PRN ×3 (08:56→22:26)
--- NOTE | 2019-08-26 10:35 | P.PN ---
Subjective Date of Service: 08/26/19 Chief Complaint: Chest pain Subjective: Improving still with L sided CP, pleuritic. Physical Examination - Vital Signs Temperature: 97.2 F Blood Pressure: 188/86 Pulse: 76 Respirations: 16 Pulse Ox (%): 96 - Physical Exam General: Alert, In no apparent distress HEENT: Atraumatic, PERRLA, EOMI Neck: Supple, JVD not distended Respiratory: Clear to auscultation bilaterally, Normal air movement Cardiovascular: Regular rate/rhythm, Normal S1 S2 Gastrointestinal: Normal bowel sounds, No tenderness Musculoskeletal: No tenderness Integumentary: No rashes Neurological: Normal speech, Normal tone, Normal affect Lymphatics: No axilla or inguinal lymphadenopathy - Studies reviewed Medications List Reviewed: Yes Assessment And Plan - Plan Mr. Gill is a 64-year-old male presented with chest pain. # Chest pain-ruled out ACS. serial trop negative. EKG with no acute ischemic changes. -s/p stress test. Negative. -continue statin. Echo wnl. -strategic sourcing consultant on consult -PE ruled out with CTA chest. #Community-acquired pneumonia-suspected. -CT chest is inconclusive. -procalcitonin elevated. -continue IV antibiotics. -IS, Duoneb, Pain control. -cultures pending #Diabetes mellitus-appears to be uncontrolled. Check hemoglobin A1c 8.1. -BG AC and HS and cover with insulin sliding scale. -add lantus -hold metformin. # Hypertension- resume home medications. uncontrolled -add clonidine. -Patient Care Coordinator consulted. Work up for secondary causes -monitor blood pressure closely. DVT ppx- SCD Patient is full code Dispo- possible dc home in a.m
[2019-08-26] MEDS: cloNIDine HCL 0.1 MG TAB PO SCH ×2 (12:10→20:56)
[2019-08-26] MEDS: Levofloxacin 750mg IV 750 MG/150 ML BAG IV SCH (13:10)
--- NOTE | 2019-08-26 13:36 | P.CNS ---
Date of Consult: 08/26/19 Reason for Consult: HTN Chief Complaint: Chest pain History of Present Illness: A 64 Y/o man with PMhx of DM, uncontrolled bP on Hydralazine and amlodipine pt presented for chest pain pt with uncontrolled BP at home he stated his average SBP at home ~170 he has anigoedema reaction to valsartan, NSAID, lisinopril and nevibilol allergic to NSAID, deneid OTC or herbal med intake stress test was negative Allergies lisinopril Allergy (Severe, Verified 10/12/18 14:39) Anaphylaxis NSAIDS (Non-Steroidal Anti-Inflamma Allergy (Severe, Verified 10/12/18 14:39) Anaphylaxis valsartan [From Diovan HCT] Allergy (Intermediate, Verified 10/12/18 14:39) SWELLING OF TONGUE nebivolol HCl [From Bystolic] Allergy (Verified 10/12/18 14:39) Shortness of breath cephalexin [From Keflex] Adverse Reaction (Verified 10/12/18 14:39) Anaphylaxis ACES Allergy (Uncoded 10/12/18 14:39) Unknown Home Medications: Esomeprazole Magnesium [Nexium] 40 mg PO DAILY 07/29/16 Glipizide [Glipizide ER] 10 mg PO DAILY 07/29/16 Metformin ER [Glucophage ER*] 1,000 mg PO BID 07/29/16 Gabapentin [Neurontin*] 600 mg PO TID 08/29/16 Amlodipine [Norvasc*] 10 mg PO [id number] 08/14/17 Hydralazine HCl [Apresoline] 100 mg PO TID 10/03/18 Hydrocodone 10/APAP 325 [[place] 10/325*] 1 tab PO Q6H PRN 10/12/18 Pravastatin Sodium [Pravachol] 20 mg PO BEDTIME 10/12/18 hydrOXYzine pamoate [Hydroxyzine Pamoate] 25 mg PO TID 10/12/18 predniSONE [Prednisone*] 10 mg PO DAILY 10/12/18 - Past Medical/Surgical History Diabetic: Yes -: HTN -: Hyperlipidemia -: Diabetes mellitus type 2 -: Diabetic neuropathy -: Fatty liver -: Diabetic gastroparesis -: History of anaphylaxis with TIERRA inhibitors,Arb inhibitors,NSAIDS,Beta block -: Osteoarthritis -: GERD -: Tobacco abuse -: Alcohol use -: TRACHEOSTOMY -: CHOLECYSTECTOMY -: appendectomy Psychosocial/ Personal History: He is single, has 3 children, 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 - Family History Brother Medical History: Hypertension Mother Medical History: Hypertension - Social History Smoking Status: Current some day smoker Alcohol use: No CD- Drugs: No Caffeine use: Yes Place of Residence: Home Physical Examination Temp Pulse Resp BP Pulse Ox 97.2 F 76 16 188/86 H 96 08/26/19 12:00 08/26/19 12:10 08/26/19 13:10 08/26/19 12:10 08/26/19 13:10 General: In no apparent distress, Oriented x3 HEENT: Atraumatic Neck: Supple, Without JVD or thyroid abnormality Respiratory: Clear to auscultation bilaterally, Normal air movement Cardiovascular: No edema, Regular rate/rhythm, Normal S1 S2, No gallops, No rubs , No murmurs Gastrointestinal: Soft and benign, Non-distended Musculoskeletal: No swelling Integumentary: No rashes Conclusions/Impression: Uncontrolled HTN agree to add clonidine cont hydralazine and Amlodipine will r/o secondary causes and send for Utix and renal doppler will consider to add diuretics and switch Amlodipine to nifedipine if BP still elevated Chest pain resolved now pericardiatis? on colchicine stress test negative DM on insulin Pneumonia cont Abx
[2019-08-26] MEDS ORDERED: D50W 25 GM/50 ML SYRINGE/VIAL IV PRN (13:49)
[2019-08-26] MEDS ORDERED: GLUCAGON 1 MG/VIAL IM PRN (13:49)
[2019-08-26 16:04] LABS: Barbiturates NEGATIVE (NEGATIVE); Benzodiazepines NEGATIVE (NEGATIVE); Cocaine NEGATIVE (NEGATIVE); METHAMPHETAM NEGATIVE (NEGATIVE); Methadone NEGATIVE (NEGATIVE); Opiates POSITIVE (NEGATIVE); Phencyclidine NEGATIVE (NEGATIVE); THC Cannibis NEGATIVE (NEGATIVE)
[2019-08-26] MEDS: INSULIN GLARGINE 100 UNITS/ML SQ SCH (20:56)
[2019-08-26] MEDS: ATORVASTATIN 10 MG TAB PO SCH (20:57)
[2019-08-27] MEDS: MORPHINE 2 MG/ML SYR IV PRN ×5 (00:12→20:59)
[2019-08-27] MEDS: ALBUTEROL 2.5 MG/3 ML NEB SOL NEB SCH ×4 (02:30→19:30)
[2019-08-27] MEDS: AMLODIPINE 10 MG TAB PO SCH (05:23)
[2019-08-27 05:41] LABS: Absolute Lymphocytes (CBC) 1.8 K/uL (0.7-4.9); Basophils % 0.3 % (0-1.3); Hematocrit 32.6 % (39.6-49.0); Lymphocytes % 24.5 % (15.3-44.8); MPV 8.1 fL (7.6-11.3); RBC Red Blood Cell Count 4.65 M/uL (4.33-5.43)
[2019-08-27 06:21] LABS: BUN Blood Urea Nitrogen 8 mg/dL (7-18); Bicarbonate 26 mmol/L (21-32); Glucose Level 222 mg/dL (74-106); Potassium 3.8 mmol/L (3.5-5.1); Sodium Level 140 mmol/L (136-145)
[2019-08-27] MEDS: INSULIN -REGULAR HUMAN 50 UNIT/0.5 ML ML SQ SCH ×4 (07:30→20:58)
[2019-08-27] MEDS: PANTOPRAZOLE 40MG TABLET PO SCH ×2 (07:30→12:21)
[2019-08-27] MEDS: GABAPENTIN 300 MG CAP PO SCH ×4 (08:26→20:57)
[2019-08-27] MEDS: COLCHICINE 0.6 MG TAB PO SCH ×3 (08:26→20:58)
[2019-08-27] MEDS: HYDRALAZINE HCL 25 MG TABLET PO SCH ×4 (08:26→21:57)
[2019-08-27] MEDS: cloNIDine HCL 0.1 MG TAB PO SCH ×4 (08:26→21:57)
[2019-08-27] MEDS: Levofloxacin 750mg IV 750 MG/150 ML BAG IV SCH (12:23)
--- NOTE | 2019-08-27 14:08 | P.PN ---
Subjective Date of Service: 08/27/19 Chief Complaint: Chest pain Subjective: Tolerating diet L side pain improves with meds, still hypertensive. no significant improvement. 24hour urine collection started. Physical Examination - Vital Signs Temperature: 97.4 F Blood Pressure: 190/91 Pulse: 71 Respirations: 18 Pulse Ox (%): 98 - Physical Exam General: Alert, In no apparent distress HEENT: Atraumatic, PERRLA, EOMI Neck: Supple, JVD not distended Respiratory: Normal air movement, Diminished, Friction rub, Other (L chest wall tenderness) Cardiovascular: Regular rate/rhythm, Normal S1 S2 Gastrointestinal: Normal bowel sounds, No tenderness Musculoskeletal: No tenderness Integumentary: No rashes Neurological: Normal speech, Normal tone, Normal affect Lymphatics: No axilla or inguinal lymphadenopathy - Studies Laboratory Tests 08/27/19 08/27/19 05:05 05:05 WBC 7.2 RBC 4.65 Hgb 10.0 L MCV 70.2 L RDW 20.8 H Plt Count 275 Sodium 140 Potassium 3.8 Creatinine 0.81 Glucose 222 H Calcium 8.3 L Medications List Reviewed: Yes Assessment And Plan - Plan Mr. Gill is a 64-year-old male presented with chest pain. # Chest pain-ruled out ACS. serial trop negative. EKG with no acute ischemic changes. -s/p stress test. Negative. -continue statin. Echo wnl. -physical therapist clinic director on consult -PE ruled out with CTA chest. #Community-acquired pneumonia-suspected. -CT chest was inconclusive. -procalcitonin elevated. -continue IV antibiotics day 3/5. -IS, Duoneb, Pain control. -cultures no growth #Diabetes mellitus-appears to be uncontrolled. hemoglobin A1c 8.1. -BG AC and HS and cover with insulin sliding scale. -added lantus, adjusting -hold metformin. # Hypertension- medications revised. uncontrolled BP -Music Typographer consulted. Work up for secondary causes. -follow up imaging. L pleuritic pain also in flank region, will follow up imaging -monitor blood pressure closely. DVT ppx- SCD Patient is full code Dispo- pending clinical improvement
--- NOTE | 2019-08-27 14:44 | RAD REPORT ---
EXAM DESCRIPTION: US - Abdomen Pelvis Scan US - 08/27/2019 12:21 pm CLINICAL HISTORY: Hypertension and abdominal pain COMPARISON: none FINDINGS: Left kidney measures 14 centimeters with an increased echotexture. The right kidney measures 11 centimeters with an increased echotexture. It contains a 1 centimeters c yst. No hydronephrosis. The velocity of the right renal artery equals 83 centimeters per second The velocity of the left renal artery equals 71 centimeters/second. Renal artery/ aorta ratio is within normal limits. . IMPRESSION: Increased renal echotexture consistent with parenchymal disease No sonographic evidence of renal arterial stenosis
[2019-08-27] MEDS: HYDROCODONE/APAP 10/325 TAB PO PRN ×2 (15:36→23:56)
[2019-08-27] MEDS: carvediloL 6.25 MG TAB PO SCH ×2 (16:37→21:59)
[2019-08-27] MEDS: NIFEDIPINE XL 60 MG TABLET PO SCH (16:37)
[2019-08-27 17:06] LABS: Urine Protein/Creatinine Ratio 0.09 ratio (<0.15)
[2019-08-27] MEDS: INSULIN GLARGINE 100 UNITS/ML SQ SCH (20:58)
[2019-08-27] MEDS: ATORVASTATIN 10 MG TAB PO SCH (20:59)
[2019-08-28] MEDS: ALBUTEROL 2.5 MG/3 ML NEB SOL NEB SCH ×2 (01:30→07:47)
--- NOTE | 2019-08-28 01:34 | PN ---
Date of Progress Note: 08/27/2019 History: The patient was admitted with uncontrolled blood pressure, urgent hypertension. Of note, the patient had allergic angioedema secondary to ARB and TIERRA inhibitor. Patient's blood pressure start being slightly better. Physical Examination: Vital Signs: Blood pressure 132/76, pulse of 69, afebrile. Chest: Clear to auscultation. Heart: S1, S2 regular. Abdomen: Soft, nontender. Extremities: Trace edema. Neurologic: Alert and oriented x3. Nonfocal. Laboratory Data: H and H 10 and 32.6. Sodium 140, potassium 3.8, bicarb 26, creatinine 0.8, BUN 8, calcium 8.5. Current Medications: The patient is on include, 1. Metoprolol. 2. Atorvastatin. 3. Clonidine 0.2 b.i.d. 4. Hydralazine 25 b.i.d. 5. Amlodipine. 6. Gabapentin. Assessment And Plan: 1. Hypertension, possible secondary to hormonal . We are waiting for the full hormonal workup, currently uncontrolled. I am going to go ahead and increase hydralazin plasma-renin activity and aldosterone and we will discontinue urine electrolytes and sodium chloride from the equation. 2. Hyperkalemia, resolved. 3. Hypertension. We will resume home medication. We will avoid any TIERRA inhibitor or ARB given the angioedema before obtain the w/u for secondary hypertension. We will follow up. LUBA Voice ID: [id number] Report ID: [id number] LYNNE
[2019-08-28] MEDS ORDERED: DIPHENHYDRAMINE 50 MG/ML VIAL IV ONE ×2 (02:57→04:26)
[2019-08-28] MEDS ORDERED: DIPHENHYDRAMINE 50 MG/ML VIAL ONE (02:58)
[2019-08-28] MEDS ORDERED: METHYLPREDNISOLONE 125 MG INJ IV ONE (03:45)
[2019-08-28] MEDS ORDERED: hydrOXYzine HCL 25 MG TAB PO SCH (05:00)
[2019-08-28] MEDS: hydrOXYzine HCL 25 MG TAB PO SCH ×2 (05:00→11:03)
[2019-08-28] MEDS ORDERED: METHYLPREDNISOLONE 125 MG INJ ONE (05:27)
[2019-08-28] MEDS: FAMOTIDINE 20 MG/2 ML VIAL IV SCH ×3 (05:28→21:49)
[2019-08-28] MEDS: METHYLPREDNISOLONE 125 MG INJ IV SCH ×2 (05:53→11:03)
[2019-08-28] MEDS: PANTOPRAZOLE 40MG TABLET PO SCH (07:30)
--- NOTE | 2019-08-28 08:12 | P.PN ---
Date of Service: 08/28/19 Notified by nurse that patient wanting to speak with me. Patient with angioedema. Tongue is enlarged. Macroglossia noted on exam. Patient not able to close his mouth. Patient will longstanding history of severe anaphylaxis. Will go ahead and give large dose steroids, Benadryl, and IV Pepcid. ENT consultation as well per family request.
[2019-08-28] MEDS: cloNIDine HCL 0.1 MG TAB PO SCH (09:00)
[2019-08-28] MEDS ORDERED: NIFEDIPINE XL 60 MG TABLET PO SCH (09:00)
[2019-08-28] MEDS: NIFEDIPINE XL 60 MG TABLET PO SCH (09:00)
[2019-08-28] MEDS: carvediloL 6.25 MG TAB PO SCH (09:00)
[2019-08-28] MEDS: COLCHICINE 0.6 MG TAB PO SCH ×2 (09:00→21:48)
[2019-08-28] MEDS: GABAPENTIN 300 MG CAP PO SCH ×3 (09:00→21:49)
[2019-08-28] MEDS: HYDRALAZINE HCL 25 MG TABLET PO SCH ×3 (09:00→21:48)
[2019-08-28] MEDS: MORPHINE 2 MG/ML SYR IV PRN ×4 (09:16→21:51)
[2019-08-28] MEDS: INSULIN -REGULAR HUMAN 50 UNIT/0.5 ML ML SQ SCH ×4 (09:16→21:55)
[2019-08-28] MEDS: Levofloxacin 750mg IV 750 MG/150 ML BAG IV SCH (11:05)
--- NOTE | 2019-08-28 11:36 | P.PN ---
Subjective Date of Service: 08/28/19 Primary Care Provider: Lana Alberto NP Chief Complaint: Chest pain Subjective: Improving (Patient was given IV Solu-Medrol, Pepcid, Benadryl due to angioedema. This has improved.) Physical Examination - Vital Signs Temperature: 97 F Blood Pressure: 162/79 Pulse: 73 Respirations: 18 Pulse Ox (%): 98 - Physical Exam General: Alert, In no apparent distress, Oriented x3, Cooperative HEENT: Atraumatic, Normocephalic, Other (Less edema noted to the tongue and mouth) Respiratory: Clear to auscultation bilaterally, Normal air movement Cardiovascular: Normal pulses, Regular rate/rhythm Gastrointestinal: Normal bowel sounds, Soft and benign, Non-distended, No tenderness, No masses, No rebound, No guarding Neurological: Normal speech, Normal strength at 5/5 x4 extr, Normal tone, Normal affect - Studies Medications List Reviewed: Yes Assessment & Plan Discharge Plan: Home Plan to discharge in: 24 Hours Physician Review Additional Text: Impression: Chest pain Angioedema Steroid dependent Diabetes mellitus type 2 insulin-dependent Hypertension Chronic renal disease stage IV Plan: Chest pain: Troponins negative. Stress test showed no stress-induced ischemia. Echocardiogram within normal range. CT scan showed no pulmonary embolism. Doubt no pneumonia at this time. Discontinue antibiotic therapy. From a cardiac standpoint patient can be discharged but patient had angioedema last night. It appeared that his steroids had not been restarted during his hospitalization. Patient given IV Solu-Medrol, Pepcid and Benadryl. Will continue with regimen. This has improved today. Anticipate discharge tomorrow once angioedema improved. Angioedema: Angioedema improved with medication. Now on IV Solu-Medrol, Pepcid and Benadryl. Will transition to oral steroid tomorrow. Steroid dependent: Continue as above. Will transition to oral steroid at discharge and continue long-term. Diabetes mellitus type 2 insulin-dependent: Continue medication. Will continue monitor Accu-Cheks. Hypertension: Continue medication. Chronic renal disease stage IV: Continue with nephrology recommendation. Time Spent Managing Pts Care (In Minutes): 55
[2019-08-28] MEDS ORDERED: hydrOXYzine HCL 25 MG TAB PO PRN (11:37)
[2019-08-28] MEDS ORDERED: ALBUTEROL 2.5 MG/3 ML NEB SOL NEB PRN (11:37)
--- NOTE | 2019-08-28 20:39 | PN ---
Date of Progress Note: 08/28/2019 Subjective: Patient was admitted with urgent hypertension, patient yesterday was started by me on ni fedipine, carvedilol and we increased the clonidine. Patient developed angioedema again. Physical Examination: Vital Signs: When I saw the patient, blood pressure 155/74, pulse of 83. Chest: Clear to auscultation. Heart: S1, S2. Regular. Abdomen: Soft, nontender. Extremities: No edema. Current Medications: The patient on include Barbi, diphenhydramine, clonidine 0.2, hydralazine 100 t.i.d., gabapentin, Pepcid, Zofran, Solu-Medrol, colchicine. Assessment And Plan: 1.Hypertension. Workup for secondary hypertension still pending. Has history of angioedema seconda ry to TIERRA inhibitor and ARB and apparently he has full workup for the angioedema at [facility], did not conclude any reason for his angioedema. Patient was placed on maintenance of pred nisone. According to the patient any time he stops his prednisone, the angioedema relapse regardless of the medications that he takes. I had long discussion with the patient about risks, benefits, alt ernatives. The patient complains that it is not related to the current medication and he like to try it again. I am going to go ahead and resume the nifedipine, keep holding the carvedilol. Continue clonidine and hydralazine for the time being and we will follow up the blood pressure. The patient u nderstands risks, benefits, alternatives. 2.Angioedema. Resume prednisone. 3.Hyperkalemia, resolved. LUBA Voice ID: [id number] Report ID: [id number]
[2019-08-28] MEDS ORDERED: INSULIN GLARGINE 100 UNITS/ML SQ SCH (21:00)
[2019-08-28] MEDS: predniSONE 20 MG TAB PO SCH (21:48)
[2019-08-28] MEDS: ATORVASTATIN 10 MG TAB PO SCH (21:49)
[2019-08-29] MEDS: MORPHINE 2 MG/ML SYR IV PRN ×2 (04:38→08:50)
[2019-08-29] MEDS: INSULIN -REGULAR HUMAN 50 UNIT/0.5 ML ML SQ SCH ×2 (07:30→11:30)
[2019-08-29] MEDS: COLCHICINE 0.6 MG TAB PO SCH (07:55)
[2019-08-29] MEDS: HYDRALAZINE HCL 25 MG TABLET PO SCH (07:55)
[2019-08-29] MEDS: GABAPENTIN 300 MG CAP PO SCH (07:55)
[2019-08-29] MEDS: predniSONE 20 MG TAB PO SCH (07:55)
[2019-08-29] MEDS: FAMOTIDINE 20 MG/2 ML VIAL IV SCH (07:57)
[2019-08-29] MEDS: NIFEDIPINE XL 60 MG TABLET PO SCH (08:49)
--- NOTE | 2019-08-29 09:53 | P.DS ---
Admission Date: 08/25/19 Discharge Date: 08/29/19 Primary Care Provider: Lana Alberto NP Disposition: ROUTINE DISCHARGE Discharge Condition: GOOD Reason for Admission: Chest pain Consultations: Nephrology-Dr. Roper Cardiology-Dr. Rivers Procedures: CT Scan: COMPARISON: Chest For Pe Angio dated 05/27/2017; Chest Single View dated 2019 TECHNIQUE: Dynamically enhanced 3 mm thick images of the chest were obtained during administration of approximately 150mL Isovue 370 IV contrast. Coronal and oblique MIP reconstruction images were generated and reviewed. Exam utilizes a protocol to evaluate the pulmonary arterial tree. All CT scans are performed using dose optimization technique as appropriate and may include automated exposure control or mA/KV adjustment according to patient size. FINDINGS: No pulmonary emboli are identified. Far peripheral posterior lung base branches are more difficult to evaluate due to presence of motion. Likelihood of embolic disease is felt to be very low. The aorta as imaged shows no acute or suspicious finding. No pericardial thickening or effusion. No focal mass or consolidation. Interstitial markings are prominent, mostly due to motion degradation. Mild interstitial edema or infiltrate cannot be excluded. No endobronchial lesions are present. No pleural effusion or pleural thickening. No mediastinal or hilar suspicious masses. No chest wall masses or abnormal axillary lymphadenopathy. Mediastinal or left hilar granulomatous calcifications are present. IMPRESSION: No pulmonary emboli identified. Stress test: COMPARISON: Rest Stress Cardiac Imaging dated 07/31/2016 TECHNIQUE: The patient was administered approximately 10mCi of Tc 99m Sestamibi prior to resting SPECT imaging of the heart. The patient was then administered approximately 30 mCi of Tc 99m Sestamibi following exercise or pharmacologic stress. Multiplanar SPECT images were reviewed. FINDINGS: No stress induced ischemic defect is seen to suggest stress induced ischemia. No fixed defect is seen to suggest hibernating myocardium or scarred myocardium. The end diastolic volume is 133 ml, the end systolic volume is 53 ml, and the ejection fraction is 60 %. IMPRESSION: No stress induced ischemia. ECHO: Ejection fraction 54% LEFT VENTRICULAR WALL MOTION: NORMAL DOPPLER/COLOR FLOW: PHYSIOLOGIC TRICUSPID REGURGITATION. NORMAL RIGHT VENTRICULAR SYSTOLIC PRESSURE. COMMENTS: NORMAL 2D ECHOCARDIOGRAM WITH DOPPLER. Medical Problem List: Chest pain suspect pericarditis Acute on chronic Angioedema Steroid dependent Diabetes mellitus type 2 insulin-dependent Hypertension Chronic renal disease stage IV Hyperlipidemia GERD Chronic pain with diabetic neuropathy Brief History of Present Illness: 64-year-old male presented to the emergency room with chest pain. Patient was admitted for further evaluation. Hospital Course: Patient was admitted for chest pain. Patient had negative troponins. Cardiology was consulted. Echocardiogram shows normal ejection fraction. Stress test ordered showed no stress-induced ischemia. CT scan showed no pulmonary embolism. No evidence of infection. Cardiology felt patient had pericarditis. Patient was started on colchicine. At discharge patient will continue with colchicine 0.6 mg 1 pill twice daily for 4-6 weeks. Recommend follow up with cardiology to further address and monitor. Patient with history of chronic angioedema on chronic steroids. Steroids were initially held due to elevated blood sugar. He was apparently started on new hypertensive medications. Patient had episode of angioedema. Patient required IV steroids, IV antihistamine. This resolved. Medications adjusted. At discharge patient will continue with prednisone 20 mg 1 pill twice daily for 5 days then 1 pill once daily for 5 days. Thereafter patient will continue with his regimen of prednisone 10 mg daily. Patient will also continue with hydroxyzine 25 mg 3 times a day. Patient with hypertension. Blood pressures were elevated. During the course of his stay in medication was adjusted. Please note Norvasc was discontinued in replace of Procardia. At discharge he will continue with Procardia XL 60 mg daily and hydralazine 100 mg 3 times a day. Recommend to maintain blood pressures less 150/80. Further adjustment can be done by his PCP. Patient with chronic renal disease stage IV. Patient seen and evaluated by nephrology. Recommend follow up with nephrology in 1-2 weeks to follow up this hospitalization. Renal function back to baseline. Patient with diabetes mellitus type 2 insulin dependent. At discharge patient may continue with glipizide ER 10 mg daily and metformin ER 1000 mg 1 pill twice daily. Further adjustment can be done by his PCP. Patient with chronic pain. Patient will continue with his current medications of hydrocodone as needed. Patient also takes Neurontin 600 mg 3 times a day. Patient with hyperlipidemia. At discharge he will continue with pravastatin 20 mg daily. Patient with history of GERD. At discharge he will continue with Nexium 40 mg daily. Vital Signs/Physical Exam: Temp Pulse Resp BP Pulse Ox 97.7 F 71 16 176/79 H 97 08/29/19 08:00 08/29/19 08:00 08/29/19 08:50 08/29/19 08:00 08/29/19 08:50 General: Alert, In no apparent distress, Oriented x3, Cooperative HEENT: Atraumatic Neck: Supple Respiratory: Clear to auscultation bilaterally, Normal air movement Cardiovascular: Normal pulses, Regular rate/rhythm Gastrointestinal: Normal bowel sounds, Soft and benign, Non-distended, No tenderness, No masses, No rebound, No guarding Musculoskeletal: No erythema, No tenderness, No warmth Integumentary: No tenderness/swelling, No erythema, No warmth, No cyanosis Neurological: Normal speech, Normal strength at 5/5 x4 extr, Normal tone, Normal affect Laboratory Data at Discharge: WBC 7.2 K/uL (4.3-10.9) 08/27/19 05:05 Hgb 10.0 g/dL (13.6-17.9) L 08/27/19 05:05 Hct 32.6 % (39.6-49.0) L 08/27/19 05:05 Plt Count 275 K/uL (152-406) 08/27/19 05:05 PT 12.0 SECONDS (9.5-12.5) 08/23/19 12:01 INR 1.02 08/23/19 12:01 Sodium 140 mmol/L (136-145) 08/27/19 05:05 Potassium 3.8 mmol/L (3.5-5.1) 08/27/19 05:05 BUN 8 mg/dL (7-18) 08/27/19 05:05 Creatinine 0.81 mg/dL (0.55-1.3) 08/27/19 05:05 Glucose 222 mg/dL (74-106) H 08/27/19 05:05 Magnesium 2.3 mg/dL (1.8-2.4) 08/27/19 05:05 Total Bilirubin 0.3 mg/dL (0.2-1.0) 08/24/19 10:30 AST 14 U/L (15-37) L 08/24/19 10:30 ALT 28 U/L (12-78) 08/24/19 10:30 Alkaline Phosphatase 64 U/L (45-117) 08/24/19 10:30 Troponin I < 0.02 ng/mL (0.0-0.045) 08/23/19 18:00 Lipase 207 U/L (73-393) 08/23/19 12:01 Home Medications: Esomeprazole Magnesium [Nexium] 40 mg PO DAILY 07/29/16 Glipizide [Glipizide ER] 10 mg PO DAILY 07/29/16 Metformin ER [Glucophage ER*] 1,000 mg PO BID 07/29/16 Gabapentin [Neurontin*] 600 mg PO TID 08/29/16 Hydralazine HCl [Apresoline] 100 mg PO TID 10/03/18 Hydrocodone 10/APAP 325 [Corder 10/325*] 1 tab PO Q6H PRN 10/12/18 Pravastatin Sodium [Pravachol] 20 mg PO BEDTIME 10/12/18 hydrOXYzine pamoate [Hydroxyzine Pamoate] 25 mg PO TID 10/12/18 predniSONE [Prednisone*] 10 mg PO DAILY 10/12/18 Colchicine [Colcrys *] 0.6 mg PO BID #80 tab 08/29/19 Nifedipine Xl [Procardia XL*] 60 mg PO DAILY #90 tab 08/29/19 predniSONE [Prednisone*] 20 mg PO SEECOM #15 tab 08/29/19 New Medications: Colchicine [Colcrys *] 0.6 mg PO BID #80 tab Nifedipine Xl [Procardia XL*] 60 mg PO DAILY #90 tab predniSONE [Prednisone*] 20 mg PO SEECOM #15 tab Patient Discharge Instructions: 1. Recommend follow up with PCP in 1 week to follow up this hospitalization. 2. Patient was admitted for chest pain. Patient had negative troponins. Cardiology was consulted. Echocardiogram shows normal ejection fraction. Stress test ordered showed no stress-induced ischemia. CT scan showed no pulmonary embolism. No evidence of infection. Cardiology felt patient had pericarditis. Patient was started on colchicine. At discharge patient will continue with colchicine 0.6 mg 1 pill twice daily for 4-6 weeks. Recommend follow up with cardiology to further address and monitor. 3. Patient with history of chronic angioedema on chronic steroids. Steroids were initially held due to elevated blood sugar. He was apparently started on new hypertensive medications. Patient had episode of angioedema. Patient required IV steroids, IV antihistamine. This resolved. Medications adjusted. At discharge patient will continue with prednisone 20 mg 1 pill twice daily for 5 days then 1 pill once daily for 5 days. Thereafter patient will continue with his regimen of prednisone 10 mg daily. Patient will also continue with hydroxyzine 25 mg 3 times a day. 4. Patient with hypertension. Blood pressures were elevated. During the course of his stay in medication was adjusted. Please note Norvasc was discontinued in replace of Procardia. At discharge he will continue with Procardia XL 60 mg daily and hydralazine 100 mg 3 times a day. Recommend to maintain blood pressures less 150/80. Further adjustment can be done by his PCP. 5. Patient with chronic renal disease stage IV. Patient seen and evaluated by nephrology. Recommend follow up with nephrology in 1-2 weeks to follow up this hospitalization. Renal function back to baseline. 6. Patient with diabetes mellitus type 2 insulin dependent. At discharge patient may continue with glipizide ER 10 mg daily and metformin ER 1000 mg 1 pill twice daily. Further adjustment can be done by his PCP. 7. Patient with chronic pain. Patient will continue with his current medications of hydrocodone as needed. Patient also takes Neurontin 600 mg 3 times a day. 8. Patient with hyperlipidemia. At discharge he will continue with pravastatin 20 mg daily. 9. Patient with history of GERD. At discharge he will continue with Nexium 40 mg daily. Diet: AHA Activity: Ad esperanza Time spent managing pt's care (in minutes): 55
[2019-08-29 11:19] VITALS: O2SAT 98
[2019-08-29 12:09] VITALS: BP 163/73; TEMP 97.8
[2019-09-01 11:25] LABS: Urine 24HR Volume Metan 2850 mL
== END 2019-08-29 12:25 | disposition home or self-care (01) | DRG 315 ==
LOC: ER 11:25 → ERHOLD 15:02 → 4TH 16:03 → OBSVTOIN 08-25 08:05
PROVIDERS: ADMIT Hospitalist; ATTEND Hospitalist
DX: I31.9 Disease of pericardium, unspecified (principal); N18.4 Chronic kidney disease, stage 4 (severe); T78.3XXA Angioneurotic edema, initial encounter; I12.9 Hypertensive chronic kidney disease with stage 1 through stage 4 chronic kidney disease, or unspecified chronic kidney disease; E11.22 Type 2 diabetes mellitus with diabetic chronic kidney disease; E78.5 Hyperlipidemia, unspecified; K21.9 Gastro-esophageal reflux disease without esophagitis; E11.40 Type 2 diabetes mellitus with diabetic neuropathy, unspecified; Z79.52 Long term (current) use of systemic steroids; E87.5 Hyperkalemia
CPT/HCPCS: 36415; 71045; 71275; 78452; 80048; 80053; 80076; 80307; 81003; 82088; 82274; 82533; 82570; 82947; 83036; 83690; 83735; 83835; 83880; 83935; 84132; 84145; 84156; 84244; 84300; 84484; 85025; 85379; 85610; 93005; 93017; 93306; 93975; 94640; 96361; 96374; 96375; 99285; A9500; G0378; J0360; J0456; J1200; J1815; J2270; J2405; J2785; J2930; J7030; J7512; Q9967

== ENCOUNTER 2020-01-15 13:34 | Emergency (ER) | payer SELFPAY ==
[2020-01-15] MEDS ORDERED: ONDANSETRON 4 MG/2 ML VIAL ONE (14:29)
[2020-01-15] MEDS ORDERED: NA CHLORIDE 0.9% 1,000 ML ONE (14:29)
[2020-01-15] MEDS ORDERED: MORPHINE 4 MG/ML SYR ONE (14:29)
[2020-01-15 15:14] LABS: Absolute Lymphocytes (CBC) 1.7 K/uL (0.7-4.9); Basophils % 0.9 % (0-1.3); MPV 8.3 fL (7.6-11.3); RBC Red Blood Cell Count 5.14 M/uL (4.33-5.43)
[2020-01-15 15:40] LABS: Bilirubin Total 0.2 mg/dL (0.2-1.0)
[2020-01-15 15:41] LABS: ALT/SGPT 28 U/L (12-78); AST/SGOT 19 U/L (15-37); Albumin 3.7 g/dL (3.4-5.0); Alkaline Phosphatase 47 U/L (45-117); BUN Blood Urea Nitrogen 9 mg/dL (7-18); Bicarbonate 21 mmol/L (21-32); Bilirubin Direct < 0.1 mg/dL (0-0.2); Glucose Level 156 mg/dL (74-106); Lipase 120 U/L (73-393); Potassium 3.9 mmol/L (3.5-5.1); Protein, Total 6.9 g/dL (6.4-8.2); Sodium Level 139 mmol/L (136-145)
--- NOTE | 2020-01-15 16:14 | RAD REPORT ---
EXAM DESCRIPTION: CTAbdomen Pelvis W Contrast - 01/15/2020 3:57 pm CLINICAL HISTORY: Abdominal pain. ABD PAIN COMPARISON: Abdomen Pelvis W Contrast dated 07/04/2019; Abdomen Pelvis W Contrast dated 9; Abdomen Pelvis W Contrast dated 02/13/2019; Abdomen Pelvis W Contrast dated 07/04/2017 TECHNIQUE: Biphasic CT imaging of the abdomen and pelvis was performed with 100 ml non-ionic IV cont rast. All CT scans are performed using dose optimization technique as appropriate and may include automated exposure control or mA/KV adjustment according to patient size. FINDINGS: The lung bases are clear.Cholecystectomy clips. The liver demonstrates fatty liver. The spleen, pancreas, adrenal glands and kidneys are within abelardo l limits. No bowel obstruction, free air, free fluid or abscess. Appendectomy. No evidence of significant lym phadenopathy. No suspicious bony findings. IMPRESSION: No acute intra-abdominal or pelvic finding. Fatty liver.
[2020-01-15] MEDS ORDERED: DIPHENOX/ATROP SULF 1 TAB PO ONE (16:42)
[2020-01-15] MEDS ORDERED: METRONIDAZOLE 500mg IVPB 500 MG/100 ML BAG IV ONE (16:45)
[2020-01-15] MEDS ORDERED: Ciprofloxacin 200mg IV 200 MG/100 ML IV.SOLN. IV ONE (16:45)
--- NOTE | 2020-01-15 17:18 | EDPHYS ---
Physician Documentation [facility] – [place], [place] Name: Neftali Gill Jr Age: 64 yrs Sex: Male : 1955 Arrival Date: 01/15/2020 Time: 13:37 Bed 7 Private MD: ED Physician Magen Palacios HPI: 01/14 14:46 This 64 yrs old Black Male presents to ER via Ambulatory with complaints of Abdominal rn Pain. 14:46 The patient presents with abdominal pain that is diffuse. rn 14:46 Onset: The symptoms/episode began/occurred 1 week(s) ago. The symptoms do not radiate. rn Associated signs and symptoms: Pertinent positives: diarrhea, Pertinent negatives: nausea and vomiting, blood in stools, fever. Modifying factors: The symptoms are alleviated by nothing, the symptoms are aggravated by food, touching the area. Severity of pain: At its worst the pain was moderate in the emergency department the pain is unchanged. The patient has not experienced similar symptoms in the past. Reports abd pain, diffuse, for 1 week, reports worse when eating, and having watery diarrhea, no blood but appears dark. . Historical: - Allergies: 14:08 ACES; ll1 14:08 Cephalexin; ll1 14:08 Diovan; ll1 14:08 Lisinopril; ll1 14:08 nebivolol HCl; ll1 14:08 NSAIDS; ll1 14:08 valsartan; ll1 - PMHx: 14:08 NIDDM; ANGIOEDEMA; High Cholesterol; Hypertension; GERD; ll1 - Social history:: Patient/guardian denies using alcohol, street drugs, tobacco products. - Family history:: not pertinent. - Hospitalizations: : No recent hospitalization is reported. ROS: 14:46 Constitutional: Negative for fever, chills, and weight loss, Eyes: Negative for injury, rn pain, redness, and discharge, Neck: Negative for injury, pain, and swelling, Cardiovascular: Negative for chest pain, palpitations, and edema, Respiratory: Negative for shortness of breath, cough, wheezing, and pleuritic chest pain, Abdomen/GI: + abd pain and diarrhea MS/Extremity: Negative for injury and deformity, Skin: Negative for injury, rash, and discoloration, Neuro: Negative for headache, weakness, numbness, tingling, and seizure. Exam: 14:46 Constitutional: This is a well developed, well nourished patient who is awake, alert, rn appears in pain Head/Face: Normocephalic, atraumatic. Cardiovascular: Tachycardic. No pulse deficits. Respiratory: No increased work of breathing, no retractions or nasal flaring. Abdomen/GI: soft, + tender in all 4 quadrants, no rebound, no gross blood on rectal exam, hemoccult neg Skin: Warm, dry MS/ Extremity: Pulses equal, no cyanosis. Neurovascular intact. Full, normal range of motion. Equal circumference. Neuro: Awake and alert, GCS 15 Vital Signs: 14:06 BP 171 / 87; Pulse 99; Resp 19; Temp 98.3; Pulse Ox 97% ; Pain 8/10; ll1 15:00 BP 163 / 82; Pulse 81; Resp 18; Pulse Ox 97% on R/A; em 16:00 BP 178 / 88; Pulse 81; Resp 16; Pulse Ox 99% on R/A; Pain 4/10; em MDM: 14:06 Patient medically screened. rn 16:29 Differential diagnosis: bowel obstruction, diverticulitis, non-specific abd pain, rn Peptic Ulcer Disease, colitis, enteritis, viral syndrome. Data reviewed: vital signs, nurses notes, lab test result(s), radiologic studies, CT scan, and as a result, I will discharge patient. Counseling: I had a detailed discussion with the patient and/or guardian regarding: the historical points, exam findings, and any diagnostic results supporting the discharge/admit diagnosis, lab results, radiology results, the need for outpatient follow up, to return to the emergency department if symptoms worsen or persist or if there are any questions or concerns that arise at home. Response to treatment: the patient's symptoms have markedly improved after treatment, and as a result, I will discharge patient. Special discussion: I discussed with the patient/guardian in detail that at this point there is no indication for admission to the hospital. It is understood, however, that if the symptoms persist or worsen the patient needs to return immediately for re-evaluation. ED course: Pt improved, ct no acute findings, clinically consistent with colitis/enteritis given amount of diarrhea, hemoccult neg, near baseline of 11 hemoglobin, will given abx and dc home with pcp/GI f/u and return precautions. Will also test for COVID-19 given infectious symptoms, elevated WBC, and diarrhea. . 01/14 14:21 Order name: Basic Metabolic Panel; Complete Time: 15:47 rn 01/14 14:21 Order name: CBC with Diff rn 01/14 14:21 Order name: Hepatic Function; Complete Time: 15:47 rn 01/14 14:21 Order name: Lipase; Complete Time: 15:47 rn 01/14 14:46 Order name: Occult Blood--Ancillary; Complete Time: 15:47 eb 01/14 16:28 Order name: COVID-19 rn 01/14 14:21 Order name: IV Saline Lock; Complete Time: 14:39 rn 01/14 14:21 Order name: CT Abd/Pelvis - IV Contrast Only; Complete Time: 16:22 rn 01/14 14:21 Order name: Labs collected and sent; Complete Time: 14:39 rn Administered Medications: 14:30 Drug: NS 0.9% 1000 ml Route: IV; Rate: 1000 ml; Site: right forearm; em 16:13 Follow up: IV Status: Completed infusion; IV Intake: 1000ml em 14:32 Drug: Zofran (Ondansetron) 4 mg Route: IVP; Site: right forearm; em 15:41 Follow up: Response: No adverse reaction; Nausea is decreased em 14:34 Drug: morphine 4 mg Route: IVP; Site: right forearm; em 15:42 Follow up: Response: No adverse reaction; Marked relief of symptoms; Pain is decreased; em RASS: Alert and Calm (0) 16:44 Drug: LoMOTIL 2 tabs Route: PO; em 17:18 Follow up: Response: No adverse reaction em 16:44 Drug: Flagyl 500 mg Volume: 100 ml; Route: IVPB; Rate: 200 ml/hr; Infused Over: 30 em mins; Site: right forearm; 17:18 Follow up: Response: No adverse reaction; IV Status: Completed infusion; IV Intake: em 100ml 17:18 Drug: Cipro 400 mg Volume: 200 ml; Route: IVPB; Infused Over: 60 mins; Site: right em forearm; 17:50 Follow up: Response: No adverse reaction; IV Status: Completed infusion; IV Intake: em 100ml Disposition: 01/15/20 17:17 Discharged to Home. Impression: Unspecified abdominal pain, Diarrhea, unspecified. - Condition is Stable. - Discharge Instructions: Abdominal Pain, Adult, Diarrhea, Adult. - Prescriptions for Cipro 500 mg Oral Tablet - take 1 tablet by ORAL route every 12 hours for 10 days; 20 tablet. Flagyl 500 mg Oral Tablet - take 1 tablet by ORAL route every 8 hours for 10 days; 30 tablet. - Medication Reconciliation Form, Thank You Letter, Antibiotic Education, Prescription Opioid Use form. - Follow up: Private Physician; When: As needed; Reason: Recheck today's complaints, Re-evaluation by your physician. - Problem is new. - Symptoms have improved. Signatures: Dispatcher [employer] EDDimitrios Tavarez RN RN Magen Carmona MD MD rn Lewis, Lynsay, RN RN ll1 Corrections: (The following items were deleted from the chart) 17:52 17:17 01/15/2020 17:17 Discharged to Home. Impression: Unspecified abdominal pain; em Diarrhea, unspecified. Condition is Stable. Forms are Medication Reconciliation Form, Thank You Letter, Antibiotic Education, Prescription Opioid Use. Follow up: Private Physician; When: As needed; Reason: Recheck today's complaints, Re-evaluation by your physician. Problem is new. Symptoms have improved. rn
--- NOTE | 2020-01-15 17:18 | ER ---
Nurse's Notes [facility] Name: Neftali Gill Jr Age: 64 yrs Sex: Male : 1955 Arrival Date: 01/15/2020 Time: 13:37 Bed 7 Private MD: Diagnosis: Unspecified abdominal pain;Diarrhea, unspecified Presentation: 01/14 14:06 Chief complaint: Patient states: Right sided abdominal pain with nausea and diarrhea ll1 for 1 week. Reports stools are black now, taking pepto and diarrhea medication. No known fever. Coronavirus screen: Proceed with normal triage. Patient denies a cough. Patient reports shortness of breath or difficulty breathing. Patient denies measured and/or subjective temperature greater than 100.4F prior to today's visit. Patient denies travel on a cruise ship or to a country the [facility] currently lists as an affected area. Patient denies contact with known and/or suspected case of COVID-19. Ebola Screen: Patient denies travel to an Ebola-affected area in the 21 days before illness onset. Initial Sepsis Screen: Does the patient meet any 2 criteria? HR > 90 bpm. No. Patient's initial sepsis screen is negative. Risk Assessment: Do you want to hurt yourself or someone else? Patient reports no desire to harm self or others. Onset of symptoms was January 09, 2020. 14:06 Method Of Arrival: Ambulatory ll1 14:06 Acuity: DUNCAN 3 ll1 Historical: - Allergies: 14:08 ACES; ll1 14:08 Cephalexin; ll1 14:08 Diovan; ll1 14:08 Lisinopril; ll1 14:08 nebivolol HCl; ll1 14:08 NSAIDS; ll1 14:08 valsartan; ll1 - PMHx: 14:08 NIDDM; ANGIOEDEMA; High Cholesterol; Hypertension; GERD; ll1 - Social history:: Patient/guardian denies using alcohol, street drugs, tobacco products. - Family history:: not pertinent. - Hospitalizations: : No recent hospitalization is reported. Screenin:18 Abuse screen: Denies threats or abuse. Nutritional screening: No deficits noted. em Tuberculosis screening: No symptoms or risk factors identified. Fall Risk None identified. Assessment: 14:18 General: Appears in no apparent distress. comfortable, Behavior is calm, cooperative, em appropriate for age, Denies fever. Pain: Complains of pain in abdomen Pain currently is 8 out of 10 on a pain scale. Pain began 1 week. Neuro: Level of Consciousness is awake, alert, obeys commands, Oriented to person, place, time, situation, Appropriate for age. Cardiovascular: Capillary refill < 3 seconds Patient's skin is warm and dry. Respiratory: Airway is patent Respiratory effort is even, unlabored, Respiratory pattern is regular, symmetrical, Denies cough, shortness of breath. GI: Abdomen is flat, Bowel sounds present X 4 quads. Abd is soft X 4 quads Abdomen is tender to palpation in abdomen diffusely Reports diarrhea, nausea. Derm: Skin is intact, is healthy with good turgor, Skin is pink, warm \T\ dry. Musculoskeletal: Capillary refill < 3 seconds, Range of motion: intact in all extremities. 15:20 Reassessment: Patient appears in no apparent distress at this time. Patient and/or em family updated on plan of care and expected duration. Pain level reassessed. Patient is alert, oriented x 3, equal unlabored respirations, skin warm/dry/pink. Patient states feeling better. 16:00 Reassessment: returned from CT. em 16:46 Reassessment: Patient appears in no apparent distress at this time. Patient and/or em family updated on plan of care and expected duration. Pain level reassessed. Patient is alert, oriented x 3, equal unlabored respirations, skin warm/dry/pink. 16:52 Reassessment: Patient appears in no apparent distress at this time. pending completion em of IV Flagyl to finish, then will start IV cipro. 17:27 Reassessment: Patient appears in no apparent distress at this time. Patient and/or em family updated on plan of care and expected duration. Pain level reassessed. is up for discharge, will be discharged after completion of IV ABX. Vital Signs: 14:06 BP 171 / 87; Pulse 99; Resp 19; Temp 98.3; Pulse Ox 97% ; Pain 8/10; ll1 15:00 BP 163 / 82; Pulse 81; Resp 18; Pulse Ox 97% on R/A; em 16:00 BP 178 / 88; Pulse 81; Resp 16; Pulse Ox 99% on R/A; Pain 4/10; em ED Course: 13:37 Patient arrived in ED. fj1 14:06 Magen Palacios MD is Attending Physician. rn 14:07 Triage completed. ll1 14:08 Arm band placed on Patient placed in an exam room, on a stretcher. ll1 14:12 Dimitrios Gracia, RN is Primary Nurse. em 14:20 Patient has correct armband on for positive identification. Placed in gown. Bed in low em position. Call light in reach. Adult w/ patient. Pulse ox on. NIBP on. 14:30 Initial lab(s) drawn, by me, sent to lab. Inserted saline lock: 20 gauge in right em forearm, using aseptic technique. Blood collected. 15:58 CT Abd/Pelvis - IV Contrast Only In Process Unspecified. EDMS 17:05 COVID-19 Sent. 3 17:51 No provider procedures requiring assistance completed. IV discontinued, intact, em bleeding controlled, No redness/swelling at site. Pressure dressing applied. Administered Medications: 14:30 Drug: NS 0.9% 1000 ml Route: IV; Rate: 1000 ml; Site: right forearm; em 16:13 Follow up: IV Status: Completed infusion; IV Intake: 1000ml em 14:32 Drug: Zofran (Ondansetron) 4 mg Route: IVP; Site: right forearm; em 15:41 Follow up: Response: No adverse reaction; Nausea is decreased em 14:34 Drug: morphine 4 mg Route: IVP; Site: right forearm; em 15:42 Follow up: Response: No adverse reaction; Marked relief of symptoms; Pain is decreased; em RASS: Alert and Calm (0) 16:44 Drug: LoMOTIL 2 tabs Route: PO; em 17:18 Follow up: Response: No adverse reaction em 16:44 Drug: Flagyl 500 mg Volume: 100 ml; Route: IVPB; Rate: 200 ml/hr; Infused Over: 30 em mins; Site: right forearm; 17:18 Follow up: Response: No adverse reaction; IV Status: Completed infusion; IV Intake: em 100ml 17:18 Drug: Cipro 400 mg Volume: 200 ml; Route: IVPB; Infused Over: 60 mins; Site: right em forearm; 17:50 Follow up: Response: No adverse reaction; IV Status: Completed infusion; IV Intake: em 100ml Intake: 16:13 IV: 1000ml; Total: 1000ml. em 17:18 IV: 100ml; Total: 1100ml. em 17:50 IV: 100ml; Total: 1200ml. em Outcome: 17:17 Discharge ordered by . rn 17:52 Discharged to home ambulatory. em 17:52 Condition: good 17:52 Discharge instructions given to patient, Instructed on discharge instructions, follow up and referral plans. medication usage, Demonstrated understanding of instructions, follow-up care, medications, Prescriptions given X 2. 17:52 Patient left the ED. em Addendum: 01/20/2020 11:22 Addendum: Other pt notified of negative COVID-19 swab results. d m5 Signatures: Dispatcher [employer] EDMilli Sibley RN RN dm5 Dimitrios Gracia RN RN Magen Carmona MD MD rn Herrera, Deanna 3 Serjio Jesus fj1 Uma Smith RN RN ll1
[2020-01-15 17:59] VITALS: TEMP 98.3
[2020-01-15 18:02] VITALS: BP 178/88; O2SAT 99
[2020-01-15 20:28] LABS: Anisocytosis 1+; Blood Morphology Comment NOTED (NOT SEEN); Hypochromasia 1+; Ovalocytes SLIGHT; Platelet Estimate ADEQ; Poikilocytosis SLIGHT; Polychromasia 1+; Urine White Blood Cell Casts OK
== END 2020-01-15 17:52 | disposition home or self-care (01) ==
LOC: ER 13:34
DX: R19.7 Diarrhea, unspecified (principal); I10 Essential (primary) hypertension; Z88.1 Allergy status to other antibiotic agents; Z88.6 Allergy status to analgesic agent; Z88.8 Allergy status to other drugs, medicaments and biological substances
CPT/HCPCS: 36415; 74177; 80048; 80076; 82272; 83690; 85025; 96361; 96365; 96367; 96375; 99284; J0744; J2405; J7030; Q9967; U0002

== ENCOUNTER 2020-05-14 12:51 | Emergency (ER) | payer OTHER ==
[2020-05-14 14:40] LABS: Absolute Lymphocytes (CBC) 1.3 K/uL (0.7-4.9); Basophils % 0.7 % (0-1.3); Hematocrit 37.1 % (39.6-49.0); Lymphocytes % 11.6 % (15.3-44.8); MPV 7.9 fL (7.6-11.3)
[2020-05-14] MEDS ORDERED: ONDANSETRON 4 MG/2 ML VIAL ONE (14:45)
[2020-05-14] MEDS ORDERED: MORPHINE 4 MG/ML SYR ONE (14:45)
[2020-05-14] MEDS ORDERED: NA CHLORIDE 0.9% 500 ML ONE (14:45)
[2020-05-14 14:54] LABS: ALT/SGPT 39 U/L (12-78); AST/SGOT 19 U/L (15-37); Albumin 4.1 g/dL (3.4-5.0); Alkaline Phosphatase 61 U/L (45-117); BUN Blood Urea Nitrogen 7 mg/dL (7-18); Bicarbonate 22 mmol/L (21-32); Bilirubin Direct < 0.1 mg/dL (0-0.2); Bilirubin Total 0.2 mg/dL (0.2-1.0); Glucose Level 212 mg/dL (74-106); Lipase 149 U/L (73-393); Potassium 4.3 mmol/L (3.5-5.1); Protein, Total 8.3 g/dL (6.4-8.2); Sodium Level 137 mmol/L (136-145)
--- NOTE | 2020-05-14 15:03 | RAD REPORT ---
EXAM DESCRIPTION: CTAbdomen Pelvis W Contrast - 05/14/2020 2:50 pm CLINICAL HISTORY: Abdominal pain. ABD PAIN COMPARISON: Abdomen Pelvis W Contrast dated 01/15/2020; Abdomen Pelvis W Contrast dated 07/04/2019 ; Abdomen Pelvis W Contrast dated 06/18/2019; Abdomen Pelvis W Contrast dated 02/13/2019 TECHNIQUE: Biphasic CT imaging of the abdomen and pelvis was performed with 100 ml non-ionic IV cont rast. All CT scans are performed using dose optimization technique as appropriate and may include automated exposure control or mA/KV adjustment according to patient size. FINDINGS: The lung bases are clear. The liver demonstrates diffuse fatty infiltration. Cholecystectomy clips. The spleen, pancreas, adren al glands and kidneys are within normal limits. No bowel obstruction, free air, free fluid or abscess. Appendectomy. No evidence of significant lym phadenopathy. There is a subtle focal area of wall thickening involving the anterior aspect of the ur inary bladder measure up to 7 mm. No suspicious bony findings. IMPRESSION: No acute intra-abdominal or pelvic finding. Focal area of wall thickening anterior aspect of the urinary bladder is noted. If clinically indicate d, followup direct visualization of this region with cystoscopy would be advised.
--- NOTE | 2020-05-14 15:43 | EDPHYS ---
Physician Documentation [facility] Name: Neftali Gill Jr Age: 65 yrs Sex: Male : 1955 Arrival Date: 05/14/2020 Time: 12:53 Bed 13 Private MD: Mary Alberto ED Physician Magen Palacios HPI: 05/14 15:52 This 65 yrs old Black Male presents to ER via Ambulatory with complaints of Abdominal kb Pain, Diarrhea. 15:52 The patient presents with abdominal pain that is diffuse. Onset: The symptoms/episode kb began/occurred 2 day(s) ago. The symptoms do not radiate. Associated signs and symptoms: Pertinent positives: nausea, vomiting, and diarrhea, Pertinent negatives: fever. The symptoms are described as constant. Modifying factors: The symptoms are alleviated by nothing, the symptoms are aggravated by nothing. Severity of pain: At its worst the pain was moderate in the emergency department the pain is unchanged. The patient has not experienced similar symptoms in the past. The patient has not recently seen a physician. Historical: - Allergies: 12:59 ACES; ll1 12:59 Cephalexin; ll1 12:59 Diovan; ll1 12:59 Lisinopril; ll1 12:59 nebivolol HCl; ll1 12:59 NSAIDS; ll1 12:59 valsartan; ll1 - PMHx: 12:59 ANGIOEDEMA; High Cholesterol; GERD; Hypertension; NIDDM; ll1 - PSHx: 12:59 Appendectomy; Cholecystectomy; ll1 - Immunization history:: Flu vaccine is up to date. - Social history:: Smoking status: Patient reports the use of cigarette tobacco products, denies chronic smoking, but will smoke occasionally, smokes one-half pack cigarettes per day. ROS: 15:51 Constitutional: Negative for fever, chills, and weight loss, Cardiovascular: Negative kb for chest pain, palpitations, and edema, Respiratory: Negative for shortness of breath, cough, wheezing, and pleuritic chest pain, Back: Negative for injury and pain, MS/Extremity: Negative for injury and deformity, Skin: Negative for injury, rash, and discoloration, Neuro: Negative for headache, weakness, numbness, tingling, and seizure. 15:51 Abdomen/GI: Positive for abdominal pain, nausea, vomiting, and diarrhea, abdominal cramps. Exam: 15:51 Constitutional: This is a well developed, well nourished patient who is awake, alert, kb and in no acute distress. Head/Face: Normocephalic, atraumatic. Chest/axilla: Normal chest wall appearance and motion. Nontender with no deformity. No lesions are appreciated. Cardiovascular: Regular rate and rhythm with a normal S1 and S2. No gallops, murmurs, or rubs. Normal PMI, no JVD. No pulse deficits. Respiratory: Lungs have equal breath sounds bilaterally, clear to auscultation and percussion. No rales, rhonchi or wheezes noted. No increased work of breathing, no retractions or nasal flaring. Back: No spinal tenderness. No costovertebral tenderness. Full range of motion. Skin: Warm, dry with normal turgor. Normal color with no rashes, no lesions, and no evidence of cellulitis. MS/ Extremity: Pulses equal, no cyanosis. Neurovascular intact. Full, normal range of motion. Neuro: Awake and alert, GCS 15, oriented to person, place, time, and situation. Cranial nerves II-XII grossly intact. Motor strength 5/5 in all extremities. Sensory grossly intact. Cerebellar exam normal. Normal gait. 15:51 Abdomen/GI: Inspection: abdomen appears normal, Bowel sounds: normal, in all quadrants, Palpation: soft, in all quadrants, mild abdominal tenderness, in all quadrants. Vital Signs: 12:57 Pulse 96; Resp 18; Temp 98.6; Pulse Ox 100% ; Weight 99.79 kg; Height 6 ft. 1 in. ll1 (185.42 cm); Pain 8/10; 12:59 BP 192 / 82; ll1 15:28 Pulse 84; Resp 16; Pulse Ox 99% ; sv 15:30 BP 169 / 84; Pulse 110; Pulse Ox 99% on R/A; vg1 16:00 BP 160 / 87; Pulse 87; Resp 16; Pulse Ox 99% ; sv 12:57 Body Mass Index 29.03 (99.79 kg, 185.42 cm) ll1 MDM: 14:22 Patient medically screened. kb 15:41 Data reviewed: vital signs, nurses notes. Data interpreted: Pulse oximetry: on room air kb is 99 %. Interpretation: normal. Counseling: I had a detailed discussion with the patient and/or guardian regarding: the historical points, exam findings, and any diagnostic results supporting the discharge/admit diagnosis, lab results, radiology results, the need for outpatient follow up, a family practitioner, to return to the emergency department if symptoms worsen or persist or if there are any questions or concerns that arise at home. 05/14 14:17 Order name: Basic Metabolic Panel; Complete Time: 15:04 kb 05/14 14:17 Order name: CBC with Diff; Complete Time: 15:58 kb 05/14 14:17 Order name: Hepatic Function; Complete Time: 15:04 kb 05/14 14:17 Order name: Lipase; Complete Time: 15:04 kb 05/14 14:54 Order name: CBC Smear Scan; Complete Time: 15:58 EDMS 05/14 15:41 Order name: Ova And Parasites kb 05/14 14:22 Order name: CT Abd/Pelvis - IV Contrast Only; Complete Time: 15:04 kb 05/14 15:41 Order name: Stool Culture 05/14 15:41 Order name: Fecal Leukocyte Stain 05/14 15:41 Order name: Occult Blood 05/14 14:17 Order name: IV Saline Lock; Complete Time: 14:31 kb 05/14 14:17 Order name: Labs collected and sent; Complete Time: 14:31 kb Administered Medications: 14:35 Drug: Zofran (Ondansetron) 4 mg Route: IVP; Site: left forearm; sv 15:00 Follow up: Response: No adverse reaction sv 14:35 Drug: NS 0.9% 500 ml Route: IV; Rate: bolus; Site: left forearm; sv 15:00 Follow up: Response: No adverse reaction; IV Status: Completed infusion; IV Intake: sv 500ml 14:37 Drug: morphine 4 mg {Note: rass1.} Route: IVP; Site: left forearm; sv 15:00 Follow up: Response: No adverse reaction; Pain is decreased; RASS: Alert and Calm (0) sv 15:41 Drug: Bentyl 20 mg Route: PO; sv 16:00 Follow up: Response: No adverse reaction sv Disposition: 17:59 Co-signature as Attending Physician, Magen Palacios MD. rn Disposition: 05/14/20 15:42 Discharged to Home. Impression: Diarrhea, unspecified. - Condition is Stable. - Discharge Instructions: Food Choices to Help Relieve Diarrhea, Adult, Viral Gastroenteritis, Adult, [id number], Diarrhea, Adult, [id number]. - Prescriptions for Bentyl 20 mg Oral Tablet - take 1 tablet by ORAL route every 6 hours As needed; 20 tablet. Zofran 4 mg Oral Tablet - take 1 tablet by ORAL route every 6 hours As needed; 20 tablet. - Medication Reconciliation Form, Thank You Letter, Antibiotic Education, Prescription Opioid Use form. - Follow up: Emergency Department; When: As needed; Reason: Worsening of condition. Follow up: Private Physician; When: 2 - 3 days; Reason: Recheck today's complaints, Continuance of care, Re-evaluation by your physician. Signatures: Dispatcher [employer] EDLeida Hernandez, JD-C JD-Natalie Seo, RN RN Magen Hernandez MD MD rn Lewis, Lynsay, RN RN ll1 Corrections: (The following items were deleted from the chart) 16:07 15:42 05/14/2020 15:42 Discharged to Home. Impression: Diarrhea, unspecified. Condition sv is Stable. Forms are Medication Reconciliation Form, Thank You Letter, Antibiotic Education, Prescription Opioid Use. Follow up: Emergency Department; When: As needed; Reason: Worsening of condition. Follow up: Private Physician; When: 2 - 3 days; Reason: Recheck today's complaints, Continuance of care, Re-evaluation by your physician. kb
--- NOTE | 2020-05-14 15:43 | ER ---
Nurse's Notes [facility] Name: Neftali Gill Jr Age: 65 yrs Sex: Male : 1955 Arrival Date: 05/14/2020 Time: 12:53 Bed 13 Private MD: Mary Alberto Diagnosis: Diarrhea, unspecified Presentation: 05/14 12:57 Chief complaint: Patient states: Abd pain with N/V/D since Thursday noght. No fever. ll1 Coronavirus screen: Client denies travel out of the [place] in the last 14 days. At this time, the client does not indicate any symptoms associated with coronavirus-19. Ebola Screen: Patient denies travel to an Ebola-affected area in the 21 days before illness onset. Initial Sepsis Screen: Does the patient meet any 2 criteria? HR > 90 bpm. No. Patient's initial sepsis screen is negative. Risk Assessment: Do you want to hurt yourself or someone else? Patient reports no desire to harm self or others. Onset of symptoms was May 11, 2020. 12:57 Method Of Arrival: Ambulatory ll1 12:57 Acuity: DUNCAN 3 ll1 14:20 Initial Sepsis Screen: Does the patient have a suspected source of infection? No. sv Patient's initial sepsis screen is negative. Historical: - Allergies: 12:59 ACES; ll1 12:59 Cephalexin; ll1 12:59 Diovan; ll1 12:59 Lisinopril; ll1 12:59 nebivolol HCl; ll1 12:59 NSAIDS; ll1 12:59 valsartan; ll1 - PMHx: 12:59 ANGIOEDEMA; High Cholesterol; GERD; Hypertension; NIDDM; ll1 - PSHx: 12:59 Appendectomy; Cholecystectomy; ll1 - Immunization history:: Flu vaccine is up to date. - Social history:: Smoking status: Patient reports the use of cigarette tobacco products, denies chronic smoking, but will smoke occasionally, smokes one-half pack cigarettes per day. Screenin:20 Abuse screen: Denies threats or abuse. Denies injuries from another. Nutritional sv screening: No deficits noted. Tuberculosis screening: No symptoms or risk factors identified. Fall Risk None identified. Assessment: 14:20 General: Appears in no apparent distress. comfortable, well groomed, well developed, sv Behavior is calm, cooperative, appropriate for age. Pain: Complains of pain in abdomen Pain currently is 8 out of 10 on a pain scale. Quality of pain is described as crampy, Is intermittent. Neuro: Level of Consciousness is awake, alert, obeys commands, Oriented to person, place, time, situation, Moves all extremities. Full function Gait is steady. Respiratory: Airway is patent Respiratory effort is even, unlabored, Respiratory pattern is regular, symmetrical. GI: Abdomen is round non-distended, Abd is soft and non tender X 4 quads. Reports lower abdominal pain, upper abdominal pain, diarrhea, nausea. Derm: Skin is intact, Skin is pink, warm \T\ dry. Musculoskeletal: Circulation, motion, and sensation intact. Range of motion: intact in all extremities. 15:41 Reassessment: Patient appears in no apparent distress at this time. Patient and/or sv family updated on plan of care and expected duration. Pain level reassessed. Patient is alert, oriented x 3, equal unlabored respirations, skin warm/dry/pink. 16:00 Reassessment: Patient appears in no apparent distress at this time. Patient and/or sv family updated on plan of care and expected duration. Pain level reassessed. Patient is alert, oriented x 3, equal unlabored respirations, skin warm/dry/pink. Patient states symptoms have improved. Vital Signs: 12:57 Pulse 96; Resp 18; Temp 98.6; Pulse Ox 100% ; Weight 99.79 kg; Height 6 ft. 1 in. ll1 (185.42 cm); Pain 8/10; 12:59 BP 192 / 82; ll1 15:28 Pulse 84; Resp 16; Pulse Ox 99% ; sv 15:30 BP 169 / 84; Pulse 110; Pulse Ox 99% on R/A; vg1 16:00 BP 160 / 87; Pulse 87; Resp 16; Pulse Ox 99% ; sv 12:57 Body Mass Index 29.03 (99.79 kg, 185.42 cm) ll1 ED Course: 12:53 Patient arrived in ED. mr 12:53 Mary Alberto is Private Physician. mr 12:58 Triage completed. ll1 12:59 Arm band placed on. ll1 14:15 Natalie Silvestre RN is Primary Nurse. sv 14:16 Leida Byrne FNP-C is PHCP. kb 14:16 Magen Palacios MD is Attending Physician. kb 14:20 Patient has correct armband on for positive identification. Bed in low position. Call sv light in reach. Pulse ox on. NIBP on. Door closed. Head of bed elevated. 14:20 Inserted saline lock: 20 gauge in left forearm, using aseptic technique. Blood sv collected. Flushed left forearm with 2 ml normal saline. 14:[address] via stretcher. sv 14:50 CT Abd/Pelvis - IV Contrast Only In Process Unspecified. EDMS 16:06 No provider procedures requiring assistance completed. IV discontinued, intact, sv bleeding controlled, No redness/swelling at site. Pressure dressing applied. Administered Medications: 14:35 Drug: Zofran (Ondansetron) 4 mg Route: IVP; Site: left forearm; sv 15:00 Follow up: Response: No adverse reaction sv 14:35 Drug: NS 0.9% 500 ml Route: IV; Rate: bolus; Site: left forearm; sv 15:00 Follow up: Response: No adverse reaction; IV Status: Completed infusion; IV Intake: sv 500ml 14:37 Drug: morphine 4 mg {Note: rass1.} Route: IVP; Site: left forearm; sv 15:00 Follow up: Response: No adverse reaction; Pain is decreased; RASS: Alert and Calm (0) sv 15:41 Drug: Bentyl 20 mg Route: PO; sv 16:00 Follow up: Response: No adverse reaction sv Intake: 15:00 IV: 500ml; Total: 500ml. sv Outcome: 15:42 Discharge ordered by . kb 16:06 Discharged to home ambulatory. sv 16:06 Condition: stable 16:06 Discharge instructions given to patient, Instructed on discharge instructions, follow up and referral plans. medication usage, Demonstrated understanding of instructions, follow-up care, medications, Prescriptions given X 2. 16:07 Patient left the ED. sv Signatures: Dispatcher [employer] EDNC Leida Byrne, JESSIE MILES-Natalie Seo, RN RN sv Mile Vargas Nahed Schofield, RN RN vg1 Uma Smith RN RN ll1
[2020-05-14] MEDS ORDERED: DICYCLOMINE HCL 10 MG CAP ONE (15:52)
[2020-05-14 15:53] LABS: Anisocytosis 2+; Blood Morphology Comment NOTED (NOT SEEN); Platelet Estimate ADEQ; Poikilocytosis 2+; White Blood Cell Scan OK (OK)
[2020-05-14 15:55] LABS: Polychromasia 1+
[2020-05-14 17:08] VITALS: TEMP 98.6
[2020-05-14 17:10] VITALS: O2SAT 99
[2020-05-14 17:11] VITALS: BP 169/84
== END 2020-05-14 16:07 | disposition home or self-care (01) ==
LOC: ER 12:51
DX: R19.7 Diarrhea, unspecified (principal); I10 Essential (primary) hypertension; F17.210 Nicotine dependence, cigarettes, uncomplicated; Z88.1 Allergy status to other antibiotic agents; Z88.6 Allergy status to analgesic agent; Z88.8 Allergy status to other drugs, medicaments and biological substances
CPT/HCPCS: 85025; 80048; 36415; 82565; 80076; 83690; 74177; 96375; 96374; 99284; Q9967; J7040; J2405

== ENCOUNTER 2020-06-09 11:07 | Emergency (ER) | payer OTHER ==
[2020-06-09 11:54] LABS: Absolute Lymphocytes (CBC) 1.1 K/uL (0.7-4.9); Basophils % 0.5 % (0-1.3); Hematocrit 31.9 % (39.6-49.0); Lymphocytes % 11.5 % (15.3-44.8); MPV 7.8 fL (7.6-11.3)
[2020-06-09] MEDS ORDERED: MEPERIDINE HCL 25 MG/ML SYR ONE (11:56)
[2020-06-09] MEDS ORDERED: METOCLOPRAMIDE 10 MG/2mL INJ ONE (11:56)
[2020-06-09] MEDS ORDERED: NA CHLORIDE 0.9% 500 ML ONE (11:57)
[2020-06-09] MEDS ORDERED: METHYLPREDNISOLONE 40 MG INJ ONE (11:57)
[2020-06-09 12:00] LABS: BUN Blood Urea Nitrogen 7 mg/dL (7-18); Bicarbonate 24 mmol/L (21-32); Glucose Level 188 mg/dL (74-106); Potassium 3.6 mmol/L (3.5-5.1); Sodium Level 138 mmol/L (136-145)
--- NOTE | 2020-06-09 12:16 | RAD REPORT ---
EXAM DESCRIPTION: CT - Head C Spine Mpr Wo Con - 06/09/2020 12:00 pm CLINICAL HISTORY: Numbness/head and neck pain COMPARISON: None. TECHNIQUE: Computed axial tomography of the head and cervical spine was obtained. Sagittal and coronal reconstruction was performed. All CT scans are performed using dose optimization technique as appropriate and may include automated exposure control or mA/KV adjustment according to patient size. FINDINGS: An intracranial bleed is not seen. The ventricles are normal in caliber. An extra-axial fl uid collection is not noted.Fluid within the visualized sinuses and mastoids is not seen A cervical fracture is not visualized. No dislocation is noted. Mild spondylosis involves the cervica l spine. A large disc bulge/herniation not visualized IMPRESSION: No acute intracranial abnormality is seen. A cervical fracture is not visualized. If the patient continues to have symptoms to suggest intracra nial /spinal cord/spinal canal pathology then MRI would be recommended
--- NOTE | 2020-06-09 12:49 | ER ---
Nurse's Notes [facility] Name: Neftali Gill Jr Age: 65 yrs Sex: Male : 1955 Arrival Date: 06/09/2020 Time: 11:08 Bed 6 Private MD: Diagnosis: Gray's palsy;Headache;Anemia in chronic diseases classified elsewhere Presentation: 06/09 11:18 Chief complaint: Patient states: Tenderness to R side of head/ neck that began ss yesterday morning and shortly after that noticed drooping and numbness to R side of face. Coronavirus screen: Client denies travel out of the [place] in the last 14 days. Ebola Screen: Patient denies exposure to infectious person. Patient denies travel to an Ebola-affected area in the 21 days before illness onset. Initial Sepsis Screen: Does the patient meet any 2 criteria? No. Patient's initial sepsis screen is negative. Does the patient have a suspected source of infection? No. Patient's initial sepsis screen is negative. Risk Assessment: Do you want to hurt yourself or someone else? Patient reports no desire to harm self or others. Onset of symptoms was June 08, 2020 at 08:00. 11:18 Method Of Arrival: Ambulatory ss 11:18 Acuity: DUNCAN 3 ss Historical: - Allergies: 11:22 ACES; ss 11:22 Cephalexin; ss 11:22 Diovan; ss 11:22 Lisinopril; ss 11:22 nebivolol HCl; ss 11:22 NSAIDS; ss 11:22 valsartan; ss - Home Meds: 11:22 amlodipine 10 mg tab 1 tab once daily [Active]; gabapentin 600 mg Oral tab 1 tab 3 ss times per day [Active]; glipizide 10 mg Oral tab 1 tab once daily [Active]; hydralazine 25 mg Oral tab 2 times per day [Active]; metformin 1,000 mg Oral tab 1 tab 2 times per day [Active]; Nexium 40 mg Oral cpDR 1 cap once daily [Active]; prednisone 10 mg Oral tab once daily [Active]; - PMHx: 11:22 ANGIOEDEMA; GERD; High Cholesterol; Hypertension; NIDDM; ss - PSHx: 11:22 Appendectomy; Cholecystectomy; ss - Immunization history:: Adult Immunizations up to date. - Social history:: Smoking status: Patient reports the use of cigarette tobacco products, 1-2 cigarettes/ day . Screenin:09 Abuse screen: Denies threats or abuse. Denies injuries from another. Nutritional ss screening: No deficits noted. Tuberculosis screening: Never had TB. Fall Risk None identified. Assessment: 11:09 General: Appears uncomfortable, well groomed, well developed, well nourished, Behavior ss is cooperative, anxious, Denies fever, feeling ill, fatigue, chills. Pain: Complains of pain in right temporal area, right occipital area and right base of the skull Pain currently is 8 out of 10 on a pain scale. Quality of pain is described as tender, Pain began yesterday morning Is continuous, Aggravated by touching. Neuro: Level of Consciousness is awake, alert, obeys commands, Oriented to person, place, time, situation, Speech is normal, Facial droop on right, Pupils are PERRLA, Reports numbness in R side of face Denies dizziness. Cardiovascular: Capillary refill < 3 seconds is brisk in bilateral fingers. Respiratory: Airway is patent Respiratory effort is even, unlabored, Respiratory pattern is regular, symmetrical. GI: No signs and/or symptoms were reported involving the gastrointestinal system. Patient currently denies diarrhea, nausea, vomiting. : No signs and/or symptoms were reported regarding the genitourinary system. EENT: Nares are clear. Derm: Skin is intact, is healthy with good turgor, Skin is dry, Skin is pink, warm \T\ dry. normal. Musculoskeletal: Circulation, motion, and sensation intact. Range of motion: intact in all extremities, Swelling absent. 12:00 Reassessment: Patient appears in no apparent distress at this time. ss 13:00 Reassessment: Patient appears in no apparent distress at this time. Patient and/or ss family updated on plan of care and expected duration. Pain level reassessed. Patient is alert, oriented x 3, equal unlabored respirations, skin warm/dry/pink. Patient states feeling better. Vital Signs: 11:18 BP 180 / 84; Pulse 84; Resp 18; Temp 98.4(TE); Pulse Ox 98% on R/A; Weight 101.15 kg; ss Height 6 ft. 1 in. (185.42 cm); Pain 8/10; 12:05 BP 143 / 87; Pulse 83; Resp 17; Temp 98.3(O); Pulse Ox 99% on R/A; mh5 11:18 Body Mass Index 29.42 (101.15 kg, 185.42 cm) ss ED Course: 11:08 Patient arrived in ED. ag5 11:09 Patient has correct armband on for positive identification. ss 11:12 Enmanuel Cazares PA is PHCP. cp 11:13 Enmanuel Ramirez MD is Attending Physician. cp 11:18 Marlys Up RN is Primary Nurse. ss 11:20 Triage completed. ss 11:22 Arm band placed on right wrist. ss 11:40 Inserted saline lock: 20 gauge in right wrist, using aseptic technique. Blood collected.ss 12:00 CT Head C Spine In Process Unspecified. EDMS 12:00 CT completed. Patient tolerated procedure well. Patient moved back from CT. bq 12:47 Elvin Kellogg MD is Referral Physician. cp 13:19 No provider procedures requiring assistance completed. IV discontinued, intact, ss bleeding controlled, No redness/swelling at site. Pressure dressing applied. Administered Medications: 11:47 Drug: SOLU-Medrol 60 mg Route: IVP; Site: right wrist; ss 13:20 Follow up: Response: No adverse reaction ss 11:50 Drug: Demerol - Meperidine 12.5 mg Route: IVP; Site: right wrist; ss 13:20 Follow up: Response: No adverse reaction; No change in condition ss 11:51 Drug: NS 0.9% 500 ml Route: IV; Rate: bolus; Site: right wrist; ss 13:20 Follow up: IV Status: Completed infusion; IV Intake: 500ml ss 11:51 Drug: Reglan 10 mg Route: IVP; Site: right wrist; ss 13:20 Follow up: Response: No adverse reaction; No change in condition ss Intake: 13:20 IV: 500ml; Total: 500ml. ss Outcome: 12:48 Discharge ordered by . cp 13:19 Discharged to home ambulatory. ss 13:19 Condition: good 13:19 Discharge instructions given to patient, Instructed on discharge instructions, follow up and referral plans. medication usage, Demonstrated understanding of instructions, follow-up care, medications, Prescriptions given X x 5 13:20 Patient left the ED. ss Signatures: Dispatcher [employer] EDVT Geeta Vaughnty bq Smirch, Marlys, ANSLYE RN ss Enmanuel Cazares PA PA cp Martinez, Maria [facility] Joseph Campos [facility]
--- NOTE | 2020-06-09 12:50 | EDPHYS ---
Physician Documentation [facility] Name: Neftali Gill Jr Age: 65 yrs Sex: Male : 1955 Arrival Date: 06/09/2020 Time: 11:08 Bed 6 Private MD: ED Physician Enmanuel Ramirez HPI: 06/09 11:35 This 65 yrs old Black Male presents to ER via Ambulatory with complaints of Numbness Of cp Lips, Headache, Pain. 11:35 The patient's problem is reported as a facial droop, on right, paresthesias, in right cp side of face, right side headache and neck pain. Onset: The symptoms/episode began/occurred yesterday, and became worse today. Duration: The episode is continuous. Context: symptoms became apparent by daughter yesterday. Associated signs and symptoms: Pertinent negatives: blurred vision, chest pain, confusion, diaphoresis, palpitations, vomiting, weakness. 11:35 Severity of symptoms: in the emergency department the symptoms are unchanged despite home interventions. Patient's baseline: Neuro: alert and fully oriented, Motor: no deficits, Ambulation: walks without assistance, Speech: normal. Historical: - Allergies: 11:22 ACES; ss 11:22 Cephalexin; ss 11:22 Diovan; ss 11:22 Lisinopril; ss 11:22 nebivolol HCl; ss 11:22 NSAIDS; ss 11:22 valsartan; ss - Home Meds: 11:22 amlodipine 10 mg tab 1 tab once daily [Active]; gabapentin 600 mg Oral tab 1 tab 3 ss times per day [Active]; glipizide 10 mg Oral tab 1 tab once daily [Active]; hydralazine 25 mg Oral tab 2 times per day [Active]; metformin 1,000 mg Oral tab 1 tab 2 times per day [Active]; Nexium 40 mg Oral cpDR 1 cap once daily [Active]; prednisone 10 mg Oral tab once daily [Active]; - PMHx: 11:22 ANGIOEDEMA; GERD; High Cholesterol; Hypertension; NIDDM; ss - PSHx: 11:22 Appendectomy; Cholecystectomy; ss - Immunization history:: Adult Immunizations up to date. - Social history:: Smoking status: Patient reports the use of cigarette tobacco products, 1-2 cigarettes/ day . ROS: 11:40 Constitutional: Negative for body aches, chills, fever, poor PO intake. cp 11:40 Eyes: Negative for injury, pain, redness, and discharge. cp 11:40 ENT: Positive for ear pain, Negative for drainage from ear(s), sore throat, difficulty swallowing, difficulty handling secretions. 11:40 Cardiovascular: Negative for chest pain, edema, palpitations. 11:40 Respiratory: Negative for cough, shortness of breath, wheezing. 11:40 Abdomen/GI: Negative for abdominal pain. 11:40 Skin: Negative for rash. 11:40 Neuro: Positive for headache, numbness, of the right side of face, Negative for altered mental status, dizziness, speech changes, weakness, right side facial droop. 11:40 All other systems are negative. Exam: 11:50 Constitutional: The patient appears in no acute distress, alert, awake, cp non-diaphoretic, non-toxic, well developed, well nourished. 11:50 Head/face: Noted is right side lower lip droop with inability to completely close right cp eye and flattening of forehead facial lines on right. Sinus tenderness, is not appreciated. 11:50 Eyes: Periorbital structures: appear normal, Pupils: equal, round, and reactive to light and accomodation, Extraocular movements: intact throughout, Conjunctiva: normal, no exudate, no injection, Sclera: no appreciated abnormality. 11:50 ENT: External ear(s): are unremarkable, Ear canal(s): are normal, clear, TM's: dullness, bilaterally, Nose: is normal, Mouth: Lips: moist, Oral mucosa: pink and intact, moist, Posterior pharynx: is normal, airway is patent, no erythema, no exudate. 11:50 Neck: External neck: tenderness, that is moderate, right posterior neck, ROM/movement: pain, with flexion, limited range of motion, is not appreciated, Meningeal signs: are not present, nuchal rigidity, is not appreciated. 11:50 Chest/axilla: Inspection: normal, Palpation: is normal, no crepitus, no tenderness. 11:50 Cardiovascular: Rate: normal, Rhythm: regular, Edema: is not appreciated, JVD: is not appreciated. 11:50 Respiratory: the patient does not display signs of respiratory distress, Respirations: normal, no use of accessory muscles, no retractions, labored breathing, is not present, Breath sounds: are clear throughout, no decreased breath sounds. 11:50 Back: pain, is absent, ROM is normal. 11:50 Skin: cellulitis, is not appreciated, no rash present. 11:50 Neuro: Orientation: to person, place \T\ time. Mentation: is normal, Cerebellar function: Romberg testing is negative, normal finger to nose testing, heel to clement testing is normal, Motor: moves all fours, strength is normal, Sensation: numbness, that is mild, of the right side facial cheek and lip area, Gait: is steady, at a normal pace, without difficulty. 12:20 Radiologist reports: no acute findings cp 12:41 Abdomen/GI: Inspection: abdomen appears normal, Bowel sounds: active, all quadrants, cp Palpation: soft, in all quadrants, mild abdominal tenderness, in the right upper quadrant, rebound tenderness, is not appreciated, involuntary guarding, is not appreciated, Rectal exam: Stool: brown, guaiac negative. Vital Signs: 11:18 BP 180 / 84; Pulse 84; Resp 18; Temp 98.4(TE); Pulse Ox 98% on R/A; Weight 101.15 kg; ss Height 6 ft. 1 in. (185.42 cm); Pain 8/10; 12:05 BP 143 / 87; Pulse 83; Resp 17; Temp 98.3(O); Pulse Ox 99% on R/A; mh5 11:18 Body Mass Index 29.42 (101.15 kg, 185.42 cm) ss MDM: 11:15 Patient medically screened. cp 11:50 Differential diagnosis: CVA, TIA, drug effects, Gray's Palsy. cp 12:47 Data reviewed: vital signs, nurses notes, lab test result(s), radiologic studies, CT cp scan, I have discussed the patient's presentation/case with the attending Emergency Department Physician; and as a result, I will discharge patient. 12:47 Counseling: I had a detailed discussion with the patient and/or guardian regarding: the cp historical points, exam findings, and any diagnostic results supporting the discharge/admit diagnosis, lab results, radiology results, the need for outpatient follow up, for definitive care, an opthalmologist, a family practitioner, a fleet administrator, to return to the emergency department if symptoms worsen or persist or if there are any questions or concerns that arise at home. Response to treatment: the patient's symptoms have markedly improved after treatment, VSS. Pain improved, and as a result, I will discharge patient. 06/09 11:32 Order name: CBC with Diff cp 06/09 12:18 Interpretation: Normal except: HGB 9.7; HCT 31.9; MCV 66.4; MCH 20.2; MCHC 30.4; RDW cp 20.2; ANNIE% 85.0; LYM% 11.5; MN% 2.9; NEUT A 8.4. 06/09 11:32 Order name: BMP; Complete Time: 12:18 cp 06/09 12:18 Interpretation: Normal except: GLUC 188. cp 06/09 11:32 Order name: CT Head C Spine; Complete Time: 12:18 cp 06/09 11:58 Order name: CBC Smear Scan EDMS 06/09 11:31 Order name: IV; Complete Time: 11:40 cp Administered Medications: 11:47 Drug: SOLU-Medrol 60 mg Route: IVP; Site: right wrist; ss 13:20 Follow up: Response: No adverse reaction ss 11:50 Drug: Demerol - Meperidine 12.5 mg Route: IVP; Site: right wrist; ss 13:20 Follow up: Response: No adverse reaction; No change in condition ss 11:51 Drug: NS 0.9% 500 ml Route: IV; Rate: bolus; Site: right wrist; ss 13:20 Follow up: IV Status: Completed infusion; IV Intake: 500ml ss 11:51 Drug: Reglan 10 mg Route: IVP; Site: right wrist; ss 13:20 Follow up: Response: No adverse reaction; No change in condition ss Disposition: 13:30 Chart complete. cp Disposition: 06/09/20 12:48 Discharged to Home. Impression: Gray's palsy, Headache, Anemia in chronic diseases classified elsewhere. - Condition is Stable. - Discharge Instructions: Iron Deficiency Anemia, Adult, Anemia, Nonspecific, Gray Palsy, Adult. - Prescriptions for Tylenol- Codeine #3 300-30 mg Oral Tablet - take 2 tablets by ORAL route every 6 hours As needed; 20 tablet. Prednisone 20 mg Oral Tablet - take 2 tablet by ORAL route once daily for 5 days; 10 tablet. Ferrous Sulfate 325 mg (65 mg Iron) Oral Tablet - take 1 tablet by ORAL route once daily; 30 tablet. Artificial Tears (emma/min) - apply 0.5 inch ribbon by OPHTHALMIC route 3-4 times daily As needed; 2 tube. Valtrex 1 g Oral Tablet - take 1 tablet by ORAL route every 8 hours for 7 days; 21 tablet. - Medication Reconciliation Form, Thank You Letter, Antibiotic Education, Prescription Opioid Use form. - Follow up: Elvin Kellogg MD; When: 2 - 3 days; Reason: Recheck today's complaints. Follow up: Private Physician; When: 2 - 3 days; Reason: anemia. - Problem is new. - Symptoms have improved. Addendum: 06/10/2020 14:42 Co-signature as Attending Physician, Enmanuel Ramirez MD I agree with the assessment and c ramirez plan of care. Signatures: Dispatcher [employer] EDCT Enmanuel Ramirez MD MD cha Smirch, Shelby, RN RN ss Enmanuel Cazares PA PA cp Corrections: (The following items were deleted from the chart) 06/09 13:20 12:48 06/09/2020 12:48 Discharged to Home. Impression: Gray's palsy; Headache; Anemia ss in chronic diseases classified elsewhere. Condition is Stable. Forms are Medication Reconciliation Form, Thank You Letter, Antibiotic Education, Prescription Opioid Use. Follow up: Elvin Kellogg; When: 2 - 3 days; Reason: Recheck today's complaints. Follow up: Private Physician; When: 2 - 3 days; Reason: anemia. Problem is new. Symptoms have improved. cp
[2020-06-09 13:08] LABS: Anisocytosis 1+; Blood Morphology Comment NOTED (NOT SEEN); Hypochromasia 1+; Platelet Estimate ADEQ; White Blood Cell Scan OK (OK)
[2020-06-09 13:42] VITALS: BP 143/87; TEMP 98.3; O2SAT 99
== END 2020-06-09 13:20 | disposition home or self-care (01) ==
LOC: ER 11:07
DX: G51.0 Bell's palsy (principal); D63.8 Anemia in other chronic diseases classified elsewhere; I10 Essential (primary) hypertension; E11.9 Type 2 diabetes mellitus without complications; E78.00 Pure hypercholesterolemia, unspecified; K21.9 Gastro-esophageal reflux disease without esophagitis; F17.210 Nicotine dependence, cigarettes, uncomplicated; Z88.1 Allergy status to other antibiotic agents; Z88.6 Allergy status to analgesic agent; Z88.8 Allergy status to other drugs, medicaments and biological substances
CPT/HCPCS: 96361; 85025; 80048; 36415; 70450; 72125; 96375; 96374; 99284; J2765; J2175; J7040; J2920

== ENCOUNTER 2020-10-05 15:38 | Emergency (ER) | payer OTHER ==
--- NOTE | 2020-10-05 16:24 | RAD REPORT ---
EXAM DESCRIPTION: RAD - Chest Single View - 10/05/2020 4:07 pm CLINICAL HISTORY: CHEST PAIN Chest pain. COMPARISON: Chest Single View dated 08/23/2019; Chest Single View dated 07/12/2019; Chest Single View dated 03/15/2019; Chest Pa And Lat (2 Views) dated 10/12/2018 FINDINGS: Portable technique limits examination quality. The lungs are grossly clear. The heart is normal in size. No displaced fractures. IMPRESSION: No acute intrathoracic process suspected.
[2020-10-05 16:29] LABS: Basophils % 1.2 % (0-1.3); Hematocrit 41.5 % (39.6-49.0); Lymphocytes % 12.8 % (15.3-44.8); MPV 8.5 fL (7.6-11.3); Protime INR 1.02; RBC Red Blood Cell Count 5.11 M/uL (4.33-5.43)
[2020-10-05 16:42] LABS: ALT/SGPT 37 U/L (12-78); AST/SGOT 19 U/L (15-37); Albumin 3.4 g/dL (3.4-5.0); Alkaline Phosphatase 55 U/L (45-117); BUN Blood Urea Nitrogen 7 mg/dL (7-18); Bicarbonate 24 mmol/L (21-32); Bilirubin Direct < 0.1 mg/dL (0-0.2); Bilirubin Total 0.1 mg/dL (0.2-1.0); Glucose Level 165 mg/dL (74-106); Magnesium 2.1 mg/dL (1.8-2.4); NT PRO-BNP 40 pg/mL (<125); Potassium 3.8 mmol/L (3.5-5.1); Protein, Total 6.6 g/dL (6.4-8.2); Sodium Level 140 mmol/L (136-145); Troponin (Emerg Dept Use Only) < 0.02 ng/mL (0.0-0.045)
[2020-10-05] MEDS ORDERED: ONDANSETRON 4 MG/2 ML VIAL ONE (16:58)
[2020-10-05] MEDS ORDERED: MORPHINE 4 MG/ML SYR ONE (16:58)
[2020-10-05 17:09] LABS: Platelet Estimate ADEQ; White Blood Cell Scan OK (OK)
[2020-10-05 17:10] LABS: Anisocytosis 1+; Blood Morphology Comment NOTED (NOT SEEN)
--- NOTE | 2020-10-05 17:57 | RAD REPORT ---
EXAM DESCRIPTION: CT - Angio Aorta For Dissection - 10/05/2020 5:41 pm CLINICAL HISTORY: Chest pain radiating to the back. chest pain, back pain COMPARISON: Angio Aorta For Dissection dated 09/11/2016 TECHNIQUE: CT angiography of the aorta was performed with MIPs. All CT scans are performed using dose optimization technique as appropriate and may include automated exposure control or mA/KV adjustment according to patient size. FINDINGS: A left aortic arch is present with normal branching pattern of the great vessels.No acute aortic finding is seen such as aneurysm, penetrating ulcer or dissection. The celiac axis, SMA, JOI and renal arteries are patent. No evidence of pulmonary embolism. The lungs are clear. The liver demonstrates no focal mass or biliary dilatation. Mild fatty liver. Cholecystectomy.The spl een, pancreas, adrenal glands and kidneys are within normal limits for arterial phase imaging. No bowel obstruction, free fluid or abscess.No pathologic enlarged lymphadenopathy identified. No fracture or worrisome bone lesion seen. IMPRESSION: No acute aortic finding is demonstrated. Mild diffuse fatty liver.
--- NOTE | 2020-10-05 18:18 | EDPHYS ---
Physician Documentation [facility] Name: Neftali Gill Jr Age: 65 yrs Sex: Male : 1955 Arrival Date: 10/05/2020 Time: 15:41 Bed 16 Private MD: ED Physician Jayson Natarajan HPI: 10/05 15:51 This 65 yrs old Black Male presents to ER via Ambulatory with complaints of Chest Pain, jmm Shortness Of Breath. 15:51 The patient or guardian reports chest pain that is located primarily in the anterior jmm chest wall. Onset: acutely, 3 day(s) ago. The pain does not radiate. Associated signs and symptoms: Pertinent positives: shortness of breath. The chest pain is described as aching, sharp. Duration: The patient or guardian reports a single episode, that is still ongoing. Modifying factors: The symptoms are alleviated by nothing. the symptoms are aggravated by movement. This is a 65 year old male with ahistory of hlp, DM, HTN that presents to the ED with complaints of anterior chest pain which developed after working on his plumbing. Patient states he does not normally perform such strenous activity now. Pain has been constant. patient states he was barely able to move due to pain for the first 2 days. . Historical: - Allergies: 15:48 ACES; ll1 15:48 Cephalexin; ll1 15:48 Diovan; ll1 15:48 Lisinopril; ll1 15:48 nebivolol HCl; ll1 15:48 NSAIDS; ll1 15:48 valsartan; ll1 - PMHx: 15:48 ANGIOEDEMA; GERD; High Cholesterol; NIDDM; Hypertension; ll1 - PSHx: 15:48 Appendectomy; Cholecystectomy; ll1 - Immunization history:: Flu vaccine is not up to date. - Social history:: Smoking status: Patient reports the use of cigarette tobacco products, denies chronic smoking, but will smoke occasionally. ROS: 15:51 Constitutional: Negative for fever, chills, and weight loss, Respiratory: Negative for jmm shortness of breath, cough, wheezing, and pleuritic chest pain. 15:51 Cardiovascular: Positive for chest pain. 15:51 All other systems are negative. Exam: 15:51 Constitutional: This is a well developed, well nourished patient who is awake, alert, jmm and in no acute distress. Head/Face: atraumatic. Eyes: EOMI, no conjunctival erythema appreciated ENT: Moist Mucus Membranes Neck: Trachea midline, Supple 15:51 Cardiovascular: Regular rate and rhythm. No edema appreciated Respiratory: Normal respirations, no respiratory distress appreciated Abdomen/GI: Non distended, soft Back: Normal ROM Skin: General appearance color normal MS/ Extremity: Moves all extremities, no obvious deformities appreciated, no edema noted to the lower extremities Neuro: Awake and alert, normal gait Psych: Behavior is normal, Mood is normal, Patient is cooperative and pleasant 15:51 Chest/axilla: Inspection: normal, Palpation: tenderness, that is moderate, of the right breast and left breast. 16:23 ECG was reviewed by the Attending Physician. [facility] Vital Signs: 15:45 Pulse 90; Resp 18; Temp 97.3; Pulse Ox 98% ; Weight 102.06 kg; Height 6 ft. 1 in. ll1 (185.42 cm); Pain 8/10; 15:48 BP 174 / 92; ll1 16:21 BP 180 / 91; Pulse 80; Resp 18; Pulse Ox 100% on R/A; vg1 17:00 BP 179 / 94; Pulse 83; Resp 16; Pulse Ox 99% on R/A; vg1 15:45 Body Mass Index 29.68 (102.06 kg, 185.42 cm) ll1 MDM: 16:07 Patient medically screened. [facility] 18:15 Data reviewed: vital signs, nurses notes. Counseling: I had a detailed discussion with [facility] the patient and/or guardian regarding: the historical points, exam findings, and any diagnostic results supporting the discharge/admit diagnosis, radiology results, the need for outpatient follow up, to return to the emergency department if symptoms worsen or persist or if there are any questions or concerns that arise at home. ED course: Labs and imaging studies negative after 3 days of constant pain which is reproduceable. Pain most likely due to strenous activity. pain in decreased in the ED. I do not suspect dissection, pe, acs at this time. Patient is given strict return precautions. patient understood and agrees with the plan of care. . 10/05 15:51 Order name: Basic Metabolic Panel; Complete Time: 16:43 [facility] 10/05 15:51 Order name: CBC with Diff; Complete Time: 17:12 [facility] 10/05 15:51 Order name: LFT's; Complete Time: 16:43 [facility] 10/05 15:51 Order name: Magnesium; Complete Time: 16:43 [facility] 10/05 15:51 Order name: NT PRO-BNP; Complete Time: 16:43 [facility] 10/05 15:51 Order name: PT-INR; Complete Time: 16:43 [facility] 10/05 15:51 Order name: Troponin (emerg Dept Use Only); Complete Time: 16:43 [facility] 10/05 15:51 Order name: XRAY Chest (1 view); Complete Time: 16:28 [facility] 10/05 15:51 Order name: EKG; Complete Time: 15:53 [facility] 10/05 17:09 Order name: D-Dimer; Complete Time: 17:47 [facility] 10/05 17:10 Order name: CBC Smear Scan; Complete Time: 17:12 [facility] 10/05 17:19 Order name: CT Aorta for Dissection; Complete Time: 18:01 [facility] 10/05 15:51 Order name: Cardiac monitoring; Complete Time: 16:19 [facility] 10/05 15:51 Order name: EKG - Nurse/Tech; Complete Time: 16:19 [facility] 10/05 15:51 Order name: IV Saline Lock; Complete Time: 16:19 [facility] 10/05 15:51 Order name: Labs collected and sent; Complete Time: 16:19 [facility] 10/05 15:51 Order name: O2 Per Protocol; Complete Time: 16:00 [facility] 10/05 15:51 Order name: O2 Sat Monitoring; Complete Time: 16:00 [facility] EC:23 Rate is 83 beats/min. Rhythm is regular. QRS [place] is Normal. MT interval is normal. QRS jmm interval is normal. QT interval is normal. No Q waves. T waves are Normal. No ST changes noted. Reviewed by me. Administered Medications: 16:54 Drug: morphine 4 mg {Note: rass0.} Route: IVP; Site: left antecubital; vg1 17:30 Follow up: Response: No adverse reaction; Pain is decreased vg1 16:54 Drug: Zofran (Ondansetron) 4 mg Route: IVP; Site: left antecubital; vg1 17:30 Follow up: Response: No adverse reaction vg1 Disposition: 10/05/20 18:18 Discharged to Home. Impression: Chest pain, unspecified. - Condition is Stable. - Discharge Instructions: Nonspecific Chest Pain. - Prescriptions for orphenadrine citrate 100 mg Oral Tablet Sustained Release - take 1 tablet by ORAL route 2 times per day As needed; 20 tablet. - Medication Reconciliation Form, Thank You Letter, Antibiotic Education, Prescription Opioid Use form. - Follow up: Private Physician; When: 2 - 3 days; Reason: Recheck today's complaints, Continuance of care, Re-evaluation by your physician. Addendum: 10/08/2020 05:09 Co-signature as Attending Physician, Jayson Natarajan MD I agree with the assessment and k dr plan of care. Signatures: Dispatcher [employer] EDMS Jayson Natarajan MD MD [facility] Dariusz Lacey PA PA jmm Garcia, Victoria, RN RN vg1 Uma Smith RN RN ll1 Corrections: (The following items were deleted from the chart) 10/05 18:32 18:18 10/05/2020 18:18 Discharged to Home. Impression: Chest pain, unspecified. vg1 Condition is Stable. Forms are Medication Reconciliation Form, Thank You Letter, Antibiotic Education, Prescription Opioid Use. Follow up: Private Physician; When: 2 - 3 days; Reason: Recheck today's complaints, Continuance of care, Re-evaluation by your physician. deborah
--- NOTE | 2020-10-05 18:18 | ER ---
Nurse's Notes [facility] Name: Neftali Gill Jr Age: 65 yrs Sex: Male : 1955 Arrival Date: 10/05/2020 Time: 15:41 Bed 16 Private MD: Diagnosis: Chest pain, unspecified Presentation: 10/05 15:45 Chief complaint: Patient states: CP and SOB for 3-4 days. No known fever. + weak and ll1 fatigue. Coronavirus screen: Client denies travel out of the [place] in the last 14 days. difficulty breathing, fatigue, shortness of breath, Client presents with at least one sign or symptom that may indicate coronavirus-19. Ebola Screen: Patient denies travel to an Ebola-affected area in the 21 days before illness onset. Initial Sepsis Screen: Does the patient meet any 2 criteria? No. Patient's initial sepsis screen is negative. Does the patient have a suspected source of infection? Yes: Other: CP and SOB. Risk Assessment: Do you want to hurt yourself or someone else? Patient reports no desire to harm self or others. Onset of symptoms was October 02, 2020. 15:45 Method Of Arrival: Ambulatory ll1 15:45 Acuity: [place]UNC[place] 3 ll1 Historical: - Allergies: 15:48 ACES; ll1 15:48 Cephalexin; ll1 15:48 Diovan; ll1 15:48 Lisinopril; ll1 15:48 nebivolol HCl; ll1 15:48 NSAIDS; ll1 15:48 valsartan; ll1 - PMHx: 15:48 ANGIOEDEMA; GERD; High Cholesterol; NIDDM; Hypertension; ll1 - PSHx: 15:48 Appendectomy; Cholecystectomy; ll1 - Immunization history:: Flu vaccine is not up to date. - Social history:: Smoking status: Patient reports the use of cigarette tobacco products, denies chronic smoking, but will smoke occasionally. Screenin:22 Abuse screen: Denies threats or abuse. Nutritional screening: No deficits noted. vg1 Tuberculosis screening: No symptoms or risk factors identified. Fall Risk No fall in past 12 months (0 pts). No secondary diagnosis (0 pts). IV access (20 points). Ambulatory Aid- None/Bed Rest/Nurse Assist (0 pts). Gait- Normal/Bed Rest/Wheelchair (0 pts) Mental Status- Oriented to own ability (0 pts). Total Parson Fall Scale indicates No Risk (0-24 pts). Assessment: 16:19 General: Appears in no apparent distress. comfortable, Behavior is calm, cooperative. vg1 Pain: Complains of pain in chest Pain does not radiate. Pain currently is 8 out of 10 on a pain scale. Pain began 2-3 days ago. Neuro: Level of Consciousness is awake, alert, obeys commands, Oriented to person, place, time, situation. Cardiovascular: Patient's skin is warm and dry. Rhythm is regular. Respiratory: Reports shortness of breath Airway is patent Respiratory effort is even, unlabored, Respiratory pattern is regular, symmetrical. GI: No signs and/or symptoms were reported involving the gastrointestinal system. : No signs and/or symptoms were reported regarding the genitourinary system. EENT: No signs and/or symptoms were reported regarding the EENT system. Derm: Skin is intact, is healthy with good turgor. Musculoskeletal: Circulation, motion, and sensation intact. 17:30 Reassessment: Patient appears in no apparent distress at this time. Patient and/or vg1 family updated on plan of care and expected duration. Pain level reassessed. Patient is alert, oriented x 3, equal unlabored respirations, skin warm/dry/pink. Patient states pain has decreased to 6/10. States chest pain as dull that hurts a little more when taking a deep breath. Provider notified. Vital Signs: 15:45 Pulse 90; Resp 18; Temp 97.3; Pulse Ox 98% ; Weight 102.06 kg; Height 6 ft. 1 in. ll1 (185.42 cm); Pain 8/10; 15:48 BP 174 / 92; ll1 16:21 BP 180 / 91; Pulse 80; Resp 18; Pulse Ox 100% on R/A; vg1 17:00 BP 179 / 94; Pulse 83; Resp 16; Pulse Ox 99% on R/A; vg1 15:45 Body Mass Index 29.68 (102.06 kg, 185.42 cm) ll1 ED Course: 15:41 Patient arrived in ED. mr 15:47 Triage completed. ll1 15:48 Arm band placed on Patient placed in an exam room, on a stretcher. ll1 15:51 Dariusz Lacey PA is [facility] 15:51 Jayson Natarajan MD is Attending Physician. jm 15:58 Nahed Schofield, RN is Primary Nurse. vg1 16:06 XRAY Chest (1 view) In Process Unspecified. EDMS 16:10 Initial lab(s) drawn, by tx, sent to lab. Inserted saline lock: 20 gauge in left vg1 antecubital area, using aseptic technique. Blood collected. 16:21 EKG done, by ED staff, reviewed by Dariusz THURMAN. vg1 16:22 Patient has correct armband on for positive identification. Bed in low position. Call vg1 light in reach. Side rails up X 1. 17:[address] via stretcher. vg1 17:41 CT Aorta for Dissection In Process Unspecified. EDMS 17:[address]. vg1 18:31 No provider procedures requiring assistance completed. IV discontinued, intact, vg1 bleeding controlled, No redness/swelling at site. Pressure dressing applied. Administered Medications: 16:54 Drug: morphine 4 mg {Note: rass0.} Route: IVP; Site: left antecubital; vg1 17:30 Follow up: Response: No adverse reaction; Pain is decreased vg1 16:54 Drug: Zofran (Ondansetron) 4 mg Route: IVP; Site: left antecubital; vg1 17:30 Follow up: Response: No adverse reaction vg1 Outcome: 18:18 Discharge ordered by . m 18:32 Discharged to home ambulatory. vg1 18:32 Condition: stable 18:32 Discharge instructions given to patient, Instructed on discharge instructions, follow up and referral plans. medication usage, Demonstrated understanding of instructions, follow-up care, medications, Prescriptions given X 1. 18:32 Patient left the ED. vg1 Signatures: Dispatcher [employer] EDCO Dariusz Lacey PA PA [facility] [place] mr Nahed Schofield, RN RN vg1 Uma Smith RN RN ll1
[2020-10-05 19:05] VITALS: TEMP 97.3
[2020-10-05 19:08] VITALS: BP 179/94; O2SAT 99
--- NOTE | 2020-10-06 07:55 | EKG ---
Test Date: 2020-10-05 Test Time: 16:06:01 Software Configuration Analyst: JULEE MEASUREMENT RESULTS: Intervals: Rate: 83 NV: 142 QRSD: 86 QT: 384 QTc: 451 [place]: P: 68 NV: 142 QRS: -9 T: 37 INTERPRETIVE STATEMENTS: Normal sinus rhythm Normal ECG Compared to ECG 08/23/2019 17:46:41 No significant changes Electronically Signed On 10-06-20 07:54:06 KNITTING MACHINE MECHANIC by Angelo Araiza
== END 2020-10-05 18:32 | disposition home or self-care (01) ==
LOC: ER 15:38
DX: R07.89 Other chest pain (principal); I10 Essential (primary) hypertension; F17.210 Nicotine dependence, cigarettes, uncomplicated; Z88.1 Allergy status to other antibiotic agents; Z88.6 Allergy status to analgesic agent; Z88.8 Allergy status to other drugs, medicaments and biological substances
CPT/HCPCS: 93005; 85025; 80048; 36415; 83735; 85610; 85379; 80076; 84484; 83880; 71275; 74175; 71045; 96375; 96374; 99284; Q9967; J2405

== ENCOUNTER 2020-12-18 10:49 | Day surgery (SDC) | payer OTHER ==
[2012-02-26 16:49] VITALS: BP 176/79
[2020-12-17 07:31] LABS: Absolute Lymphocytes (CBC) 3.4 K/uL (0.7-4.9); Basophils % 0.4 % (0-1.3); Lymphocytes % 33.1 % (15.3-44.8); MPV 9.3 fL (7.6-11.3); RBC Red Blood Cell Count 5.06 M/uL (4.33-5.43)
[2020-12-17 07:47] LABS: Protime INR 0.92
[2020-12-17 07:48] LABS: BUN Blood Urea Nitrogen 14 mg/dL (7-18); Bicarbonate 32 mmol/L (21-32); Glucose Level 85 mg/dL (74-106); HDL Cholesterol 58 mg/dL (40-60); LDL Cholesterol, Calculated 38 (<130); Potassium 3.4 mmol/L (3.5-5.1); Sodium Level 143 mmol/L (136-145)
[2020-12-18] MEDS ORDERED: FENTANYL CITR 250 MCG/5 ML ONE (14:57)
[2020-12-18] MEDS ORDERED: MIDAZOLAM HCL 2 MG/2 ML INJ ONE (14:57)
[2020-12-18] MEDS ORDERED: SUCCINYLCHOLINE 20 MG/ML (10 ML) IV ONE (14:57)
[2020-12-18] MEDS ORDERED: propofoL 200 MG/20 ML VIAL IV ONE (15:17)
[2020-12-18] MEDS ORDERED: ROCURONIUM 50 MG/5 ML VIAL IV ONE (15:39)
[2020-12-18] MEDS ORDERED: NEOSTIGMINE 1 MG/ML -5 ML ONE (16:03)
[2020-12-18] MEDS ORDERED: GLYCOPYRROLATE 0.2 MG/ML SYR ONE ×2 (16:03)
[2020-12-18] MEDS ORDERED: MORPHINE 4 MG/ML SYR ONE (16:33)
[2020-12-18] MEDS ORDERED: OPIUM/BELLADONNA SUPPOS (30-16.2 MG) PR ONE (16:34)
--- NOTE | 2020-12-19 01:40 | OP ---
Surgeon: YONATAN GARCIA Preoperative Diagnoses: 1.Benign prostatic hypertrophy with lower urinary tract obstructive symptoms. 2.Urgency with urination. 3.Status post prior transurethral resection of the prostate. Postoperative Diagnoses: 1.Benign prostatic hypertrophy with lower urinary tract obstructive symptoms. 2.Urgency with urination. 3.Status post prior transurethral resection of the prostate. Principle Procedure: Bipolar transurethral resection of the prostate. Indication For Procedure: Mr. Gill presented to Urology Clinic with persistent obstructive and so me irritative or urinary symptoms. Because he had some regrowth of adenoma along with a likely 3 cm prostatic fossa with residual obstruction, his irritative urinary symptoms were likely a consequence of decompensatory bladder change due to the obstruction. As a result, we discussed options for manag ement, which would include repeat TURP versus adding a 5-alpha reductase inhibitor to attempt to melody nk the prostate. He had such a good outcome. The first time he had the TURP such that he elected to proceed with it again. Procedure In Detail: The patient was consented in the preoperative holding area before being transfe rred to the operative suite where general anesthesia was induced. He was given clindamycin and genta micin IV antimicrobial prophylaxis and pneumo boots were provided for DVT prophylaxis. He was placed in the lithotomy position, padded and secured to the table appropriately. His genitalia were cleans ed using Hibiclens and draped in standard fashion. The case was begun using urethral sounds to dilat e the meatus and fossa navicularis to 30-[place]. Then, using a visual obturator and the 26-[place] re sectoscope, the urethra was traversed and the bladder entered. The bladder was surveyed, and the ure teral orifices were orthotopic in location and otherwise there were no mucosal lesions, foreign kian s, or stones. There was some mild median lobar regrowth but significant persistent lateral lobar hyp ertrophy extending to the apex of the prostate bilaterally. As a result, I began resection of the me alayna lobar regrowth flattening it down to the level of the bladder neck and taking it to the verumont jocelyn to create a nice trough. The left lateral lobe was then resected all the way to the anterior lo be, which any overhang was also resected. I then similarly resected the right lateral lobe and any a nterior overhang. The resection was continued from the bladder neck all the way to the verumontanum taking care not to resect more than the proximal 1/2 of any overhanging tissue next to the verumontan um. Once this was done and the prostatic fossa was widely patent, I then Alexandra evacuated all prostat ic chips, which were sent for pathologic analysis. A careful search for bleeding was undertaken, and the entirety of the prostatic fossa was fulgurated until no bleeding was noted even with the bladder decompressed along with the prostatic fossa. As a result, with the entirety of the prostatic fossa completely hemostatic, I then left his bladder full and placed a 22-[place] 3-way Mirza catheter. He was then taken out of the lithotomy position and the catheter was placed to moderate traction. He wa s then awakened from general anesthesia, transferred to a stretcher, and then transferred to the [facility] very room in good condition. Complications: None. Discharge Disposition: The patient will follow up in the Urology Clinic on Thursday or Thursday with Maribel mcneill se for a voiding trial. Subsequent followup would be planned in about 3 month s assuming the pathology from his resection is negative for malignancy. He will then see me in 3 thu for interval assessment. Should he have any refractory issues with irritative lower urinary symp toms like frequency, urgency or urge incontinence. Anticholinergic therapy should be considered afte r about 3 weeks postoperative recovery has elapsed. It is my anticipation that any decompensatory ch anges to his bladder will improve with time and the bladder recognizing the obstruction has been kerwin aminata. If not, a brief course of anticholinergics would likely be of benefit. The patient was also pr escribed ciprofloxacin as well as Tylenol with codeine upon discharge. He was recommended to obtain an [id number] azo prescription for dysuria likely afte r the catheter is removed. WR/MODL Voice ID: [id number] Report ID: [id number]
== END 2020-12-18 17:40 | disposition home or self-care (01) ==
LOC: OR 10:49
PROVIDERS: ATTEND Urology
PROC: 0VT08ZZ Resection of Prostate, Via Natural or Artificial Opening Endoscopic (ICD-10-PCS; principal; 2020-12-18)
DX: N40.1 Benign prostatic hyperplasia with lower urinary tract symptoms (principal); E29.1 Testicular hypofunction; N13.8 Other obstructive and reflux uropathy; R39.15 Urgency of urination; Z20.822 Contact with and (suspected) exposure to COVID-19
CPT/HCPCS: 85025; 87086; 80048; 36415; 85610; 80061; 52601; U0002

== ENCOUNTER 2023-01-30 18:28 | Inpatient (IN) | payer OTHER ==
--- OUTSIDE RECORDS SUMMARY | 2023-01-30 18:58 | XMS REPORT | Continuity of Care Document ---
:1955 Author Organization [facility] t Address [address] [facility] [address] [place] [address] Care Team Providers Name Role Phone Mary Alberto Attending Clinician Unavailable Payers Payer Name Policy Type Policy Number Effective Date Expiration Date S [facility] 111 [id number] 2022 Common S pirit Advantage HMO 00:00:00 - [facility] Problems Condition Condition Condition Status Onset Resolution Last Treating Co mments Source Name Details Category Date Date Treatment Clinician Date [id number] Detrusor Problem Comm on instabilit Spirit y [facility] [id number] Urge Problem Common incontinen [facility] [id number] BMI Problem Common 28.0-28.9, [facility] adult [facility] [id number] Diarrhea, Problem Comm on functional [facility] [id number] Primary Problem Common insomnia [facility] [id number] Lumbar Problem Common back pain [facility] with [facility] radiculopa [facility] lower [place] extremity [id number] Right Problem Common upper [facility] quadrant [facility] abdominal [facility] Seasonal Seasonal Problem Commo n allergic allergic [facility] rhinitis reaction [facility] Peripheral Peripheral Problem C ommon neuropathy neuropathy Sp iveth [facility] Disturbanc Disturbanc Problem C ommon e of skin e of skin Spir it sensation sensation - I [facility] Angioedema Angioedema Problem C ommon [facility] Hypertensi Hypertensi Problem C ommon on on Spirit - [facility] [id number] Wound of Problem Comm on skin [facility] [id number] S/P TURP Problem Comm on (status Spirit post - [facility] transureth [facility] resection [facility] of Center prostate) [id number] Dysuria Problem Common [facility] [id number] Type 2 Problem Common diabetes [facility] mellitus - [facility] with other [facility] y Medical complicati Center ons [id number] Other Problem Common postherpet Spirit ic nervous - [facility] system [facility] [id number] Hospital Problem Comm on discharge Spirit follow-up [facility] 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 Sp iveth [facility] [id number] Diarrhea Problem Commo n of Spirit presumed - [facility] infectious [facility] [id number] Acquired Problem Comm on anal [facility] stenosis [facility] [id number] Lower Problem Common urinary [facility] tract - [facility] symptoms ([facility] [id number] BPH loc w Problem Com mon urin Spirit obs/LUTS - [facility] 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 - C HI a hyperplasi [facility] [id number] Prostatiti Problem Com mon s, acute [facility] [id number] ED Problem Common (erectile Spirit dysfunctio - [facility]) of [facility] Routine Routine Problem Common eye exam eye exam [facility] [id number] group home Problem Com mon current Spirit use of - [facility] insulin [facility] Overactive OAB Problem Commo n bladder (overactiv Spiri t e bladder) [facility] Impotence 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 - [facility]) [facility] [id number] Urethritis Problem Com mon Spirit [facility] [id number] Incomplete Problem Co mmon emptying Spirit of bladder - [facility] Allergies, Adverse Reactions, Alerts Allergy Allergy Status Severity Reaction(s) Onset Inactive Treating Comm ents Source Name Type Date Date Clinician valsarta valsarta Active angioedema Co mmon n n Spirit - [facility] 6335 Drug Active Unknown Common allergy [facility] cephalex cephalex Active shock Common in in [facility] carvedil carvedil Active Unknown Commo n ol ol [facility] lisinopr lisinopr Active angioedema Co mmon il il [facility] Social History Social Habit Start Date Stop Date Quantity Comments Source History of Tobacco Current Smoker Co mmon [facility] - [facility] Use [facility] Sex Assigned At Com mon [facility] Smoking Status Start Date Stop Date Source Current Smoker 2022-12-10 00:00:00 Common Spiri [facility] Never Smoker Common [facility] Medications Ordered Filled Start Stop Current Ordering Indication Dosage Frequency Signature Comments Components Source Medication Medication Date Date Medication? Clinician (SIG) Name Name Pregabalin Pregabalin No Pregabalin 200 MG 200 MG 5-21 200 MG 00:00: 00 Pregabalin Pregabalin 0 No Pregabalin 225 MG 225 MG 3-07 225 MG 00:00: 00 Viagra 100 Viagra 100 2022-0 2022- No Viagra 100 MG MG 1-25 08-23 MG 00:00: 00:00 00 :00 Viagra 100 Viagra 100 2022-0 2022- No Viagra 100 MG MG 1-25 08-23 MG 00:00: 00:00 00 :00 Viagra 100 Viagra 100 2022-0 2022- No Viagra 100 MG MG 1-25 08-23 MG 00:00: 00:00 00 :00 Viagra 100 Viagra 100 2022-0 2022- No Viagra 100 MG MG 1-25 08-23 MG 00:00: 00:00 00 :00 Viagra 100 Viagra 100 2022-0 2022- No Viagra 100 MG MG 1-25 08-23 MG 00:00: 00:00 00 :00 Viagra 100 Viagra 100 2022-0 2022- No Viagra 100 MG MG 1-25 08-23 MG 00:00: 00:00 00 :00 Viagra 100 Viagra 100 2022-0 2022- No Viagra 100 MG MG 1-25 08-23 MG 00:00: 00:00 00 :00 Pregabalin Pregabalin 2021-08 No TID Pregabalin 225 MG 225 MG 1-17 225 MG 00:00: 00 Toujeo Max Toujeo Max 2021-08 No QD Toujeo Max SoloStar SoloStar 1-17 SoloStar 300 UNIT/ML 300 UNIT/ML 00:00: 300 00 UNIT/ML Pregabalin Pregabalin 2021-08 No TID Pregabalin 225 MG 225 MG 1-17 225 MG 00:00: 00 Toujeo Max Toujeo Max 2021-08 No QD Toujeo Max SoloStar SoloStar 1-17 SoloStar 300 UNIT/ML 300 UNIT/ML 00:00: 300 00 UNIT/ML Toujeo Max Toujeo Max 2021-08 No QD Toujeo Max SoloStar SoloStar 1-17 SoloStar 300 UNIT/ML 300 UNIT/ML 00:00: 300 00 UNIT/ML Pregabalin Pregabalin 2021-08 No TID Pregabalin 225 MG 225 MG 1-17 225 MG 00:00: 00 Toujeo Max Toujeo Max 2021-08 No QD Toujeo Max SoloStar SoloStar 1-17 SoloStar 300 UNIT/ML 300 UNIT/ML 00:00: 300 00 UNIT/ML Pregabalin Pregabalin 2021-08 No TID Pregabalin 225 MG 225 MG 1-17 225 MG 00:00: 00 Pregabalin Pregabalin 2021-08 No TID Pregabalin 225 MG 225 MG 1-17 225 MG 00:00: 00 Toujeo Max Toujeo Max 2021-08 No QD Toujeo Max SoloStar SoloStar 1-17 SoloStar 300 UNIT/ML 300 UNIT/ML 00:00: 300 00 UNIT/ML Toujeo Max Toujeo Max 2021-08 No QD Toujeo Max SoloStar SoloStar 1-17 SoloStar 300 UNIT/ML 300 UNIT/ML 00:00: 300 00 UNIT/ML Pregabalin Pregabalin 2021-08 No TID Pregabalin 225 MG 225 MG 1-17 225 MG 00:00: 00 Toujeo Max Toujeo Max 2021-08 No QD Toujeo Max SoloStar SoloStar 1-17 SoloStar 300 UNIT/ML 300 UNIT/ML 00:00: 300 00 UNIT/ML Pregabalin Pregabalin 2021-08 No TID Pregabalin 225 MG 225 MG 1-17 225 MG 00:00: 00 Toujeo Max Toujeo Max 2021-08 No QD Toujeo Max SoloStar SoloStar 1-17 SoloStar 300 UNIT/ML 300 UNIT/ML 00:00: 300 00 UNIT/ML Pregabalin Pregabalin 2021-08 No TID Pregabalin 225 MG 225 MG 1-17 225 MG 00:00: 00 Toujeo Max Toujeo Max 2021-08 No QD Toujeo Max SoloStar SoloStar 1-17 SoloStar 300 UNIT/ML 300 UNIT/ML 00:00: 300 00 UNIT/ML Pregabalin Pregabalin 2021-08 No TID Pregabalin 225 MG 225 MG 1-17 225 MG 00:00: 00 Toujeo Max Toujeo Max 2021-08 No QD Toujeo Max SoloStar SoloStar 1-17 SoloStar 300 UNIT/ML 300 UNIT/ML 00:00: 300 00 UNIT/ML Pregabalin Pregabalin 2021-08 No TID Pregabalin 225 MG 225 MG 1-17 225 MG 00:00: 00 Toujeo Max Toujeo Max 2021-08 No QD Toujeo Max SoloStar SoloStar 1-17 SoloStar 300 UNIT/ML 300 UNIT/ML 00:00: 300 00 UNIT/ML Pregabalin Pregabalin 2021-08 No TID Pregabalin 225 MG 225 MG 1-17 225 MG 00:00: 00 Toujeo Max Toujeo Max 2021-08 No QD Toujeo Max SoloStar SoloStar 1-17 SoloStar 300 UNIT/ML 300 UNIT/ML 00:00: 300 00 UNIT/ML Pregabalin Pregabalin 2021-08 No TID Pregabalin 225 MG 225 MG 1-17 225 MG 00:00: 00 Toujeo Max Toujeo Max 2021-08 No QD Toujeo Max SoloStar SoloStar 1-17 SoloStar 300 UNIT/ML 300 UNIT/ML 00:00: 300 00 UNIT/ML Pregabalin Pregabalin 2021-08 No TID Pregabalin 225 MG 225 MG 1-17 225 MG 00:00: 00 Toujeo Max Toujeo Max 2021-08 No QD Toujeo Max SoloStar SoloStar 1-17 SoloStar 300 UNIT/ML 300 UNIT/ML 00:00: 300 00 UNIT/ML Pregabalin Pregabalin 2021-08 No TID Pregabalin 225 MG 225 MG 1-17 225 MG 00:00: 00 Toujeo Max Toujeo Max 2021-08 No QD Toujeo Max SoloStar SoloStar 1-17 SoloStar 300 UNIT/ML 300 UNIT/ML 00:00: 300 00 UNIT/ML Pregabalin Pregabalin 2021-08 No TID Pregabalin 225 MG 225 MG 1-17 225 MG 00:00: 00 Pregabalin Pregabalin 2021-08 No TID Pregabalin 225 MG 225 MG 1-17 225 MG 00:00: 00 Toujeo Max Toujeo Max 2021-08 No QD Toujeo Max SoloStar SoloStar 1-17 SoloStar 300 UNIT/ML 300 UNIT/ML 00:00: 300 00 UNIT/ML Pregabalin Pregabalin 2021-08 No TID Pregabalin 225 MG 225 MG 1-17 225 MG 00:00: 00 Toujeo Max Toujeo Max 2021-08 No QD Toujeo Max SoloStar SoloStar 1-17 SoloStar 300 UNIT/ML 300 UNIT/ML 00:00: 300 00 UNIT/ML Pregabalin Pregabalin 2021-08 No TID Pregabalin 225 MG 225 MG 1-17 225 MG 00:00: 00 Toujeo Max Toujeo Max 2021-08 No QD Toujeo Max SoloStar SoloStar 1-17 SoloStar 300 UNIT/ML 300 UNIT/ML 00:00: 300 00 UNIT/ML Pregabalin Pregabalin 2021-08 No TID Pregabalin 225 MG 225 MG 1-17 225 MG 00:00: 00 Toujeo Max Toujeo Max 2021-08 No QD Toujeo Max SoloStar SoloStar 1-17 SoloStar 300 UNIT/ML 300 UNIT/ML 00:00: 300 00 UNIT/ML Pregabalin Pregabalin 2021-08 No TID Pregabalin 225 MG 225 MG 1-17 225 MG 00:00: 00 Toujeo Max Toujeo Max 2021-08 No QD Toujeo Max SoloStar SoloStar 1-17 SoloStar 300 UNIT/ML 300 UNIT/ML 00:00: 300 00 UNIT/ML Pregabalin Pregabalin 2021-08 No TID Pregabalin 225 MG 225 MG 1-17 225 MG 00:00: 00 Toujeo Max Toujeo Max 2021-08 No QD Toujeo Max SoloStar SoloStar 1-17 SoloStar 300 UNIT/ML 300 UNIT/ML 00:00: 300 00 UNIT/ML Pregabalin Pregabalin 2020-08 No Pregabalin 200 MG 200 MG -22 200 MG 00:00: 00 Esomeprazol Esomeprazol No QD Esomeprazo e Magnesium e Magnesium 7-25 le 40 MG 40 MG 00:00: Magnesium 00 40 MG Esomeprazol Esomeprazol No QD Esomeprazo e Magnesium e Magnesium 7-25 le 40 MG 40 MG 00:00: Magnesium 00 40 MG Esomeprazol Esomeprazol No QD Esomeprazo e Magnesium e Magnesium 7-25 le 40 MG 40 MG 00:00: Magnesium 00 40 MG Esomeprazol Esomeprazol No QD Esomeprazo e Magnesium e Magnesium 7-25 le 40 MG 40 MG 00:00: Magnesium 00 40 MG Esomeprazol Esomeprazol 0 No QD Esomeprazo e Magnesium e Magnesium 7-25 le 40 MG 40 MG 00:00: Magnesium 00 40 MG Esomeprazol Esomeprazol No QD Esomeprazo e Magnesium e Magnesium 7-25 le 40 MG 40 MG 00:00: Magnesium 00 40 MG Esomeprazol Esomeprazol No QD Esomeprazo e Magnesium e Magnesium 7-25 le 40 MG 40 MG 00:00: Magnesium 00 40 MG Esomeprazol Esomeprazol 0 No QD Esomeprazo e Magnesium e Magnesium 7-25 le 40 MG 40 MG 00:00: Magnesium 00 40 MG Esomeprazol Esomeprazol 0 No QD Esomeprazo e Magnesium e Magnesium 7-25 le 40 MG 40 MG 00:00: Magnesium 00 40 MG Esomeprazol Esomeprazol 0 No QD Esomeprazo e Magnesium e Magnesium 7-25 le 40 MG 40 MG 00:00: Magnesium 00 40 MG Esomeprazol Esomeprazol No QD Esomeprazo e Magnesium e Magnesium 7-25 le 40 MG 40 MG 00:00: Magnesium 00 40 MG Esomeprazol Esomeprazol No QD Esomeprazo e Magnesium e Magnesium 7-25 le 40 MG 40 MG 00:00: Magnesium 00 40 MG Esomeprazol Esomeprazol No QD Esomeprazo e Magnesium e Magnesium 7-25 le 40 MG 40 MG 00:00: Magnesium 00 40 MG Esomeprazol Esomeprazol No QD Esomeprazo e Magnesium e Magnesium 7-25 le 40 MG 40 MG 00:00: Magnesium 00 40 MG Esomeprazol Esomeprazol No QD Esomeprazo e Magnesium e Magnesium 7-25 le 40 MG 40 MG 00:00: Magnesium 00 40 MG Esomeprazol Esomeprazol 0 No QD Esomeprazo e Magnesium e Magnesium 7-25 le 40 MG 40 MG 00:00: Magnesium 00 40 MG Esomeprazol Esomeprazol No QD Esomeprazo e Magnesium e Magnesium 7-25 le 40 MG 40 MG 00:00: Magnesium 00 40 MG clomiPHENE clomiPHENE No QD clomiPHENE Citrate 50 Citrate 50 3-10 Citrate 50 MG MG 00:00: MG 00 clomiPHENE clomiPHENE No QD clomiPHENE Citrate 50 Citrate 50 3-10 Citrate 50 MG MG 00:00: MG 00 clomiPHENE clomiPHENE No QD clomiPHENE Citrate 50 Citrate 50 3-10 Citrate 50 MG MG :00: MG 00 clomiPHENE clomiPHENE No QD clomiPHENE Citrate 50 Citrate 50 3-10 Citrate 50 MG MG :: MG clomiPHENE clomiPHENE No QD clomiPHENE Citrate 50 Citrate 50 3-10 Citrate 50 MG MG :: MG 00 clomiPHENE clomiPHENE No QD clomiPHENE Citrate 50 Citrate 50 3-10 Citrate 50 MG MG :: MG clomiPHENE clomiPHENE No QD clomiPHENE Citrate 50 Citrate 50 3-10 Citrate 50 MG MG :: MG clomiPHENE clomiPHENE No QD clomiPHENE Citrate 50 Citrate 50 3-10 Citrate 50 MG MG :: MG 00 clomiPHENE clomiPHENE No QD clomiPHENE Citrate 50 Citrate 50 3-10 Citrate 50 MG MG :: MG clomiPHENE clomiPHENE No QD clomiPHENE Citrate 50 Citrate 50 3-10 Citrate 50 MG MG :: MG clomiPHENE clomiPHENE No QD clomiPHENE Citrate 50 Citrate 50 3-10 Citrate 50 MG MG :: MG 00 clomiPHENE clomiPHENE No QD clomiPHENE Citrate 50 Citrate 50 3-10 Citrate 50 MG MG :: MG 00 clomiPHENE clomiPHENE No QD clomiPHENE Citrate 50 Citrate 50 3-10 Citrate 50 MG MG :: MG clomiPHENE clomiPHENE No QD clomiPHENE Citrate 50 Citrate 50 3-10 Citrate 50 MG MG :00: MG 00 clomiPHENE clomiPHENE No QD clomiPHENE Citrate 50 Citrate 50 3-10 Citrate 50 MG MG :00: MG 00 clomiPHENE clomiPHENE No QD clomiPHENE Citrate 50 Citrate 50 3-10 Citrate 50 MG MG :00: MG 00 clomiPHENE clomiPHENE No QD clomiPHENE Citrate 50 Citrate 50 3-10 Citrate 50 MG MG :00: MG 00 clomiPHENE clomiPHENE No QD clomiPHENE Citrate 50 Citrate 50 3-10 Citrate 50 MG MG 00:00: MG clomiPHENE clomiPHENE No QD clomiPHENE Citrate 50 Citrate 50 3-10 Citrate 50 MG MG 00:00: MG clomiPHENE clomiPHENE No QD clomiPHENE Citrate 50 Citrate 50 3-10 Citrate 50 MG MG 00:00: MG clomiPHENE clomiPHENE No QD clomiPHENE Citrate 50 Citrate 50 3-10 Citrate 50 MG MG 00:00: MG clomiPHENE clomiPHENE No QD clomiPHENE Citrate 50 Citrate 50 3-10 Citrate 50 MG MG 00:00: MG 00 clomiPHENE clomiPHENE No QD clomiPHENE Citrate 50 Citrate 50 3-10 Citrate 50 MG MG 00:00: MG 00 metFORMIN metFORMIN No BID metFORMIN HCl 1000 MG HCl 1000 MG HCl 1000 MG hydrALAZINE hydrALAZINE No hydrALAZIN HCl 100 MG HCl 100 MG E HCl 100 MG Valtrex 1 Valtrex 1 No 1{table QD Valtrex 1 GM GM t} GM Dicyclomine Dicyclomine No Dicyclomin HCl 20 MG HCl 20 MG e HCl 20 MG Pravastatin Pravastatin No Pravastati Sodium 40 Sodium 40 n Sodium MG MG 40 MG Combigan Combigan No Combigan 0.2-0.5 % 0.2-0.5 % 0.2-0.5 % predniSONE predniSONE No predniSONE 20 MG 20 MG 20 MG glipiZIDE glipiZIDE No QD glipiZIDE 10 MG 10 MG 10 MG NIFEdipine NIFEdipine No 1{table NIFEdipine ER Osmotic ER Osmotic t} ER Osmotic Release 90 Release 90 Release 90 MG MG MG metFORMIN metFORMIN No metFORMIN HCl 500 MG HCl 500 MG HCl 500 MG glipiZIDE glipiZIDE No QD glipiZIDE 10 MG 10 MG 10 MG Cholestyram Cholestyram No 1{packe QD Cholestyra ine 4 GM ine 4 GM t_mixed mine 4 GM _with_w ater_or _non-ca rbonate d_drink } metFORMIN metFORMIN No metFORMIN HCl 1000 MG HCl 1000 MG HCl 1000 MG traZODone traZODone No traZODone HCl 50 MG HCl 50 MG HCl 50 MG metFORMIN metFORMIN No QD metFORMIN HCl 500 MG HCl 500 MG HCl 500 MG metFORMIN metFORMIN No BID metFORMIN HCl 1000 MG HCl 1000 MG HCl 1000 MG hydrALAZINE hydrALAZINE No hydrALAZIN HCl 100 MG HCl 100 MG E HCl 100 MG Valtrex 1 Valtrex 1 No 1{table QD Valtrex 1 GM GM t} GM Dicyclomine Dicyclomine No Dicyclomin HCl 20 MG HCl 20 MG e HCl 20 MG Pravastatin Pravastatin No Pravastati Sodium 40 Sodium 40 n Sodium MG MG 40 MG Combigan Combigan No Combigan 0.2-0.5 % 0.2-0.5 % 0.2-0.5 % predniSONE predniSONE No predniSONE 20 MG 20 MG 20 MG glipiZIDE glipiZIDE No QD glipiZIDE 10 MG 10 MG 10 MG NIFEdipine NIFEdipine No 1{table NIFEdipine ER Osmotic ER Osmotic t} ER Osmotic Release 90 Release 90 Release 90 MG MG MG metFORMIN metFORMIN No metFORMIN HCl 500 MG HCl 500 MG HCl 500 MG glipiZIDE glipiZIDE No QD glipiZIDE 10 MG 10 MG 10 MG Cholestyram Cholestyram No 1{packe QD Cholestyra ine 4 GM ine 4 GM t_mixed mine 4 GM _with_w ater_or _non-ca rbonate d_drink } metFORMIN metFORMIN No metFORMIN HCl 1000 MG HCl 1000 MG HCl 1000 MG traZODone traZODone No traZODone HCl 50 MG HCl 50 MG HCl 50 MG metFORMIN metFORMIN No QD metFORMIN HCl 500 MG HCl 500 MG HCl 500 MG metFORMIN metFORMIN No QD metFORMIN HCl 500 MG HCl 500 MG HCl 500 MG traZODone traZODone No traZODone HCl 50 MG HCl 50 MG HCl 50 MG hydrALAZINE hydrALAZINE No hydrALAZIN HCl 100 MG HCl 100 MG E HCl 100 MG Dicyclomine Dicyclomine No Dicyclomin HCl 20 MG HCl 20 MG e HCl 20 MG predniSONE predniSONE No predniSONE 20 MG 20 MG 20 MG glipiZIDE glipiZIDE No QD glipiZIDE 10 MG 10 MG 10 MG metFORMIN metFORMIN No BID metFORMIN HCl 1000 MG HCl 1000 MG HCl 1000 MG Pravastatin Pravastatin No Pravastati Sodium 40 Sodium 40 n Sodium MG MG 40 MG NIFEdipine NIFEdipine No 1{table NIFEdipine ER Osmotic ER Osmotic t} ER Osmotic Release 90 Release 90 Release 90 MG MG MG glipiZIDE glipiZIDE No QD glipiZIDE 10 MG 10 MG 10 MG metFORMIN metFORMIN No metFORMIN HCl 1000 MG HCl 1000 MG HCl 1000 MG Combigan Combigan No Combigan 0.2-0.5 % 0.2-0.5 % 0.2-0.5 % Valtrex 1 Valtrex 1 No 1{table QD Valtrex 1 GM GM t} GM Cholestyram Cholestyram No 1{packe QD Cholestyra ine 4 GM ine 4 GM t_mixed mine 4 GM _with_w ater_or _non-ca rbonate d_drink } metFORMIN metFORMIN No metFORMIN HCl 500 MG HCl 500 MG HCl 500 MG metFORMIN metFORMIN No QD metFORMIN HCl 500 MG HCl 500 MG HCl 500 MG traZODone traZODone No traZODone HCl 50 MG HCl 50 MG HCl 50 MG hydrALAZINE hydrALAZINE No hydrALAZIN HCl 100 MG HCl 100 MG E HCl 100 MG Dicyclomine Dicyclomine No Dicyclomin HCl 20 MG HCl 20 MG e HCl 20 MG predniSONE predniSONE No predniSONE 20 MG 20 MG 20 MG glipiZIDE glipiZIDE No QD glipiZIDE 10 MG 10 MG 10 MG metFORMIN metFORMIN No BID metFORMIN HCl 1000 MG HCl 1000 MG HCl 1000 MG Pravastatin Pravastatin No Pravastati Sodium 40 Sodium 40 n Sodium MG MG 40 MG NIFEdipine NIFEdipine No 1{table NIFEdipine ER Osmotic ER Osmotic t} ER Osmotic Release 90 Release 90 Release 90 MG MG MG glipiZIDE glipiZIDE No QD glipiZIDE 10 MG 10 MG 10 MG metFORMIN metFORMIN No metFORMIN HCl 1000 MG HCl 1000 MG HCl 1000 MG Combigan Combigan No Combigan 0.2-0.5 % 0.2-0.5 % 0.2-0.5 % Valtrex 1 Valtrex 1 No 1{table QD Valtrex 1 GM GM t} GM Cholestyram Cholestyram No 1{packe QD Cholestyra ine 4 GM ine 4 GM t_mixed mine 4 GM _with_w ater_or _non-ca rbonate d_drink } metFORMIN metFORMIN No metFORMIN HCl 500 MG HCl 500 MG HCl 500 MG metFORMIN metFORMIN No metFORMIN HCl 500 MG HCl 500 MG HCl 500 MG predniSONE predniSONE No predniSONE 20 MG 20 MG 20 MG Pravastatin Pravastatin No Pravastati Sodium 40 Sodium 40 n Sodium MG MG 40 MG Dicyclomine Dicyclomine No Dicyclomin HCl 20 MG HCl 20 MG e HCl 20 MG hydrALAZINE hydrALAZINE No hydrALAZIN HCl 100 MG HCl 100 MG E HCl 100 MG metFORMIN metFORMIN No metFORMIN HCl 1000 MG HCl 1000 MG HCl 1000 MG glipiZIDE glipiZIDE No QD glipiZIDE 10 MG 10 MG 10 MG NIFEdipine NIFEdipine No 1{table NIFEdipine ER Osmotic ER Osmotic t} ER Osmotic Release 90 Release 90 Release 90 MG MG MG glipiZIDE glipiZIDE No QD glipiZIDE 10 MG 10 MG 10 MG Combigan Combigan No Combigan 0.2-0.5 % 0.2-0.5 % 0.2-0.5 % Cholestyram Cholestyram No 1{packe QD Cholestyra ine 4 GM ine 4 GM t_mixed mine 4 GM _with_w ater_or _non-ca rbonate d_drink } metFORMIN metFORMIN No QD metFORMIN HCl 500 MG HCl 500 MG HCl 500 MG metFORMIN metFORMIN No BID metFORMIN HCl 1000 MG HCl 1000 MG HCl 1000 MG traZODone traZODone No traZODone HCl 50 MG HCl 50 MG HCl 50 MG Valtrex 1 Valtrex 1 No 1{table QD Valtrex 1 GM GM t} GM traZODone traZODone No traZODone HCl 50 MG HCl 50 MG HCl 50 MG hydrALAZINE hydrALAZINE No hydrALAZIN HCl 100 MG HCl 100 MG E HCl 100 MG Pravastatin Pravastatin No Pravastati Sodium 40 Sodium 40 n Sodium MG MG 40 MG metFORMIN metFORMIN No QD metFORMIN HCl 500 MG HCl 500 MG HCl 500 MG metFORMIN metFORMIN No metFORMIN HCl 1000 MG HCl 1000 MG HCl 1000 MG glipiZIDE glipiZIDE No QD glipiZIDE 10 MG 10 MG 10 MG Cholestyram Cholestyram No 1{packe QD Cholestyra ine 4 GM ine 4 GM t_mixed mine 4 GM _with_w ater_or _non-ca rbonate d_drink } Valtrex 1 Valtrex 1 No 1{table QD Valtrex 1 GM GM t} GM NIFEdipine NIFEdipine No 1{table NIFEdipine ER Osmotic ER Osmotic t} ER Osmotic Release 90 Release 90 Release 90 MG MG MG glipiZIDE glipiZIDE No QD glipiZIDE 10 MG 10 MG 10 MG Combigan Combigan No Combigan 0.2-0.5 % 0.2-0.5 % 0.2-0.5 % metFORMIN metFORMIN No metFORMIN HCl 500 MG HCl 500 MG HCl 500 MG metFORMIN metFORMIN No BID metFORMIN HCl 1000 MG HCl 1000 MG HCl 1000 MG hydrOXYzine hydrOXYzine No hydrOXYzin HCl 25 MG HCl 25 MG e HCl 25 MG Dicyclomine Dicyclomine No Dicyclomin HCl 20 MG HCl 20 MG e HCl 20 MG predniSONE predniSONE No predniSONE 20 MG 20 MG 20 MG traZODone traZODone No traZODone HCl 50 MG HCl 50 MG HCl 50 MG hydrALAZINE hydrALAZINE No hydrALAZIN HCl 100 MG HCl 100 MG E HCl 100 MG Pravastatin Pravastatin No Pravastati Sodium 40 Sodium 40 n Sodium MG MG 40 MG metFORMIN metFORMIN No QD metFORMIN HCl 500 MG HCl 500 MG HCl 500 MG metFORMIN metFORMIN No metFORMIN HCl 1000 MG HCl 1000 MG HCl 1000 MG glipiZIDE glipiZIDE No QD glipiZIDE 10 MG 10 MG 10 MG Cholestyram Cholestyram No 1{packe QD Cholestyra ine 4 GM ine 4 GM t_mixed mine 4 GM _with_w ater_or _non-ca rbonate d_drink } Valtrex 1 Valtrex 1 No 1{table QD Valtrex 1 GM GM t} GM NIFEdipine NIFEdipine No 1{table NIFEdipine ER Osmotic ER Osmotic t} ER Osmotic Release 90 Release 90 Release 90 MG MG MG glipiZIDE glipiZIDE No QD glipiZIDE 10 MG 10 MG 10 MG Combigan Combigan No Combigan 0.2-0.5 % 0.2-0.5 % 0.2-0.5 % metFORMIN metFORMIN No metFORMIN HCl 500 MG HCl 500 MG HCl 500 MG metFORMIN metFORMIN No BID metFORMIN HCl 1000 MG HCl 1000 MG HCl 1000 MG hydrOXYzine hydrOXYzine No hydrOXYzin HCl 25 MG HCl 25 MG e HCl 25 MG Dicyclomine Dicyclomine No Dicyclomin HCl 20 MG HCl 20 MG e HCl 20 MG predniSONE predniSONE No predniSONE 20 MG 20 MG 20 MG traZODone traZODone No traZODone HCl 50 MG HCl 50 MG HCl 50 MG hydrALAZINE hydrALAZINE No hydrALAZIN HCl 100 MG HCl 100 MG E HCl 100 MG Pravastatin Pravastatin No Pravastati Sodium 40 Sodium 40 n Sodium MG MG 40 MG metFORMIN metFORMIN No QD metFORMIN HCl 500 MG HCl 500 MG HCl 500 MG metFORMIN metFORMIN No metFORMIN HCl 1000 MG HCl 1000 MG HCl 1000 MG glipiZIDE glipiZIDE No QD glipiZIDE 10 MG 10 MG 10 MG Cholestyram Cholestyram No 1{packe QD Cholestyra ine 4 GM ine 4 GM t_mixed mine 4 GM _with_w ater_or _non-ca rbonate d_drink } Valtrex 1 Valtrex 1 No 1{table QD Valtrex 1 GM GM t} GM NIFEdipine NIFEdipine No 1{table NIFEdipine ER Osmotic ER Osmotic t} ER Osmotic Release 90 Release 90 Release 90 MG MG MG glipiZIDE glipiZIDE No QD glipiZIDE 10 MG 10 MG 10 MG Combigan Combigan No Combigan 0.2-0.5 % 0.2-0.5 % 0.2-0.5 % metFORMIN metFORMIN No metFORMIN HCl 500 MG HCl 500 MG HCl 500 MG metFORMIN metFORMIN No BID metFORMIN HCl 1000 MG HCl 1000 MG HCl 1000 MG hydrOXYzine hydrOXYzine No hydrOXYzin HCl 25 MG HCl 25 MG e HCl 25 MG Dicyclomine Dicyclomine No Dicyclomin HCl 20 MG HCl 20 MG e HCl 20 MG predniSONE predniSONE No predniSONE 20 MG 20 MG 20 MG traZODone traZODone No traZODone HCl 50 MG HCl 50 MG HCl 50 MG hydrALAZINE hydrALAZINE No hydrALAZIN HCl 100 MG HCl 100 MG E HCl 100 MG Pravastatin Pravastatin No Pravastati Sodium 40 Sodium 40 n Sodium MG MG 40 MG metFORMIN metFORMIN No QD metFORMIN HCl 500 MG HCl 500 MG HCl 500 MG metFORMIN metFORMIN No metFORMIN HCl 1000 MG HCl 1000 MG HCl 1000 MG glipiZIDE glipiZIDE No QD glipiZIDE 10 MG 10 MG 10 MG Cholestyram Cholestyram No 1{packe QD Cholestyra ine 4 GM ine 4 GM t_mixed mine 4 GM _with_w ater_or _non-ca rbonate d_drink } Valtrex 1 Valtrex 1 No 1{table QD Valtrex 1 GM GM t} GM NIFEdipine NIFEdipine No 1{table NIFEdipine ER Osmotic ER Osmotic t} ER Osmotic Release 90 Release 90 Release 90 MG MG MG glipiZIDE glipiZIDE No QD glipiZIDE 10 MG 10 MG 10 MG Combigan Combigan No Combigan 0.2-0.5 % 0.2-0.5 % 0.2-0.5 % metFORMIN metFORMIN No metFORMIN HCl 500 MG HCl 500 MG HCl 500 MG metFORMIN metFORMIN No BID metFORMIN HCl 1000 MG HCl 1000 MG HCl 1000 MG hydrOXYzine hydrOXYzine No hydrOXYzin HCl 25 MG HCl 25 MG e HCl 25 MG Dicyclomine Dicyclomine No Dicyclomin HCl 20 MG HCl 20 MG e HCl 20 MG predniSONE predniSONE No predniSONE 20 MG 20 MG 20 MG traZODone traZODone No traZODone HCl 50 MG HCl 50 MG HCl 50 MG hydrALAZINE hydrALAZINE No hydrALAZIN HCl 100 MG HCl 100 MG E HCl 100 MG Pravastatin Pravastatin No Pravastati Sodium 40 Sodium 40 n Sodium MG MG 40 MG metFORMIN metFORMIN No QD metFORMIN HCl 500 MG HCl 500 MG HCl 500 MG metFORMIN metFORMIN No metFORMIN HCl 1000 MG HCl 1000 MG HCl 1000 MG glipiZIDE glipiZIDE No QD glipiZIDE 10 MG 10 MG 10 MG Cholestyram Cholestyram No 1{packe QD Cholestyra ine 4 GM ine 4 GM t_mixed mine 4 GM _with_w ater_or _non-ca rbonate d_drink } Valtrex 1 Valtrex 1 No 1{table QD Valtrex 1 GM GM t} GM NIFEdipine NIFEdipine No 1{table NIFEdipine ER Osmotic ER Osmotic t} ER Osmotic Release 90 Release 90 Release 90 MG MG MG glipiZIDE glipiZIDE No QD glipiZIDE 10 MG 10 MG 10 MG Combigan Combigan No Combigan 0.2-0.5 % 0.2-0.5 % 0.2-0.5 % metFORMIN metFORMIN No metFORMIN HCl 500 MG HCl 500 MG HCl 500 MG metFORMIN metFORMIN No BID metFORMIN HCl 1000 MG HCl 1000 MG HCl 1000 MG hydrOXYzine hydrOXYzine No hydrOXYzin HCl 25 MG HCl 25 MG e HCl 25 MG Dicyclomine Dicyclomine No Dicyclomin HCl 20 MG HCl 20 MG e HCl 20 MG predniSONE predniSONE No predniSONE 20 MG 20 MG 20 MG traZODone traZODone No traZODone HCl 50 MG HCl 50 MG HCl 50 MG hydrALAZINE hydrALAZINE No hydrALAZIN HCl 100 MG HCl 100 MG E HCl 100 MG Pravastatin Pravastatin No Pravastati Sodium 40 Sodium 40 n Sodium MG MG 40 MG metFORMIN metFORMIN No QD metFORMIN HCl 500 MG HCl 500 MG HCl 500 MG metFORMIN metFORMIN No metFORMIN HCl 1000 MG HCl 1000 MG HCl 1000 MG glipiZIDE glipiZIDE No QD glipiZIDE 10 MG 10 MG 10 MG Cholestyram Cholestyram No 1{packe QD Cholestyra ine 4 GM ine 4 GM t_mixed mine 4 GM _with_w ater_or _non-ca rbonate d_drink } Valtrex 1 Valtrex 1 No 1{table QD Valtrex 1 GM GM t} GM NIFEdipine NIFEdipine No 1{table NIFEdipine ER Osmotic ER Osmotic t} ER Osmotic Release 90 Release 90 Release 90 MG MG MG glipiZIDE glipiZIDE No QD glipiZIDE 10 MG 10 MG 10 MG Combigan Combigan No Combigan 0.2-0.5 % 0.2-0.5 % 0.2-0.5 % metFORMIN metFORMIN No metFORMIN HCl 500 MG HCl 500 MG HCl 500 MG metFORMIN metFORMIN No BID metFORMIN HCl 1000 MG HCl 1000 MG HCl 1000 MG hydrOXYzine hydrOXYzine No hydrOXYzin HCl 25 MG HCl 25 MG e HCl 25 MG Dicyclomine Dicyclomine No Dicyclomin HCl 20 MG HCl 20 MG e HCl 20 MG predniSONE predniSONE No predniSONE 20 MG 20 MG 20 MG traZODone traZODone No traZODone HCl 50 MG HCl 50 MG HCl 50 MG hydrALAZINE hydrALAZINE No hydrALAZIN HCl 100 MG HCl 100 MG E HCl 100 MG Pravastatin Pravastatin No Pravastati Sodium 40 Sodium 40 n Sodium MG MG 40 MG metFORMIN metFORMIN No QD metFORMIN HCl 500 MG HCl 500 MG HCl 500 MG metFORMIN metFORMIN No metFORMIN HCl 1000 MG HCl 1000 MG HCl 1000 MG glipiZIDE glipiZIDE No QD glipiZIDE 10 MG 10 MG 10 MG Cholestyram Cholestyram No 1{packe QD Cholestyra ine 4 GM ine 4 GM t_mixed mine 4 GM _with_w ater_or _non-ca rbonate d_drink } Valtrex 1 Valtrex 1 No 1{table QD Valtrex 1 GM GM t} GM NIFEdipine NIFEdipine No 1{table NIFEdipine ER Osmotic ER Osmotic t} ER Osmotic Release 90 Release 90 Release 90 MG MG MG glipiZIDE glipiZIDE No QD glipiZIDE 10 MG 10 MG 10 MG Combigan Combigan No Combigan 0.2-0.5 % 0.2-0.5 % 0.2-0.5 % metFORMIN metFORMIN No metFORMIN HCl 500 MG HCl 500 MG HCl 500 MG metFORMIN metFORMIN No BID metFORMIN HCl 1000 MG HCl 1000 MG HCl 1000 MG hydrOXYzine hydrOXYzine No hydrOXYzin HCl 25 MG HCl 25 MG e HCl 25 MG Dicyclomine Dicyclomine No Dicyclomin HCl 20 MG HCl 20 MG e HCl 20 MG predniSONE predniSONE No predniSONE 20 MG 20 MG 20 MG traZODone traZODone No traZODone HCl 50 MG HCl 50 MG HCl 50 MG hydrALAZINE hydrALAZINE No hydrALAZIN HCl 100 MG HCl 100 MG E HCl 100 MG Pravastatin Pravastatin No Pravastati Sodium 40 Sodium 40 n Sodium MG MG 40 MG metFORMIN metFORMIN No QD metFORMIN HCl 500 MG HCl 500 MG HCl 500 MG metFORMIN metFORMIN No metFORMIN HCl 1000 MG HCl 1000 MG HCl 1000 MG glipiZIDE glipiZIDE No QD glipiZIDE 10 MG 10 MG 10 MG Cholestyram Cholestyram No 1{packe QD Cholestyra ine 4 GM ine 4 GM t_mixed mine 4 GM _with_w ater_or _non-ca rbonate d_drink } Valtrex 1 Valtrex 1 No 1{table QD Valtrex 1 GM GM t} GM NIFEdipine NIFEdipine No 1{table NIFEdipine ER Osmotic ER Osmotic t} ER Osmotic Release 90 Release 90 Release 90 MG MG MG glipiZIDE glipiZIDE No QD glipiZIDE 10 MG 10 MG 10 MG Combigan Combigan No Combigan 0.2-0.5 % 0.2-0.5 % 0.2-0.5 % metFORMIN metFORMIN No metFORMIN HCl 500 MG HCl 500 MG HCl 500 MG metFORMIN metFORMIN No BID metFORMIN HCl 1000 MG HCl 1000 MG HCl 1000 MG hydrOXYzine hydrOXYzine No hydrOXYzin HCl 25 MG HCl 25 MG e HCl 25 MG Dicyclomine Dicyclomine No Dicyclomin HCl 20 MG HCl 20 MG e HCl 20 MG predniSONE predniSONE No predniSONE 20 MG 20 MG 20 MG traZODone traZODone No traZODone HCl 50 MG HCl 50 MG HCl 50 MG hydrALAZINE hydrALAZINE No hydrALAZIN HCl 100 MG HCl 100 MG E HCl 100 MG Pravastatin Pravastatin No Pravastati Sodium 40 Sodium 40 n Sodium MG MG 40 MG metFORMIN metFORMIN No QD metFORMIN HCl 500 MG HCl 500 MG HCl 500 MG metFORMIN metFORMIN No metFORMIN HCl 1000 MG HCl 1000 MG HCl 1000 MG glipiZIDE glipiZIDE No QD glipiZIDE 10 MG 10 MG 10 MG Cholestyram Cholestyram No 1{packe QD Cholestyra ine 4 GM ine 4 GM t_mixed mine 4 GM _with_w ater_or _non-ca rbonate d_drink } Valtrex 1 Valtrex 1 No 1{table QD Valtrex 1 GM GM t} GM NIFEdipine NIFEdipine No 1{table NIFEdipine ER Osmotic ER Osmotic t} ER Osmotic Release 90 Release 90 Release 90 MG MG MG glipiZIDE glipiZIDE No QD glipiZIDE 10 MG 10 MG 10 MG Combigan Combigan No Combigan 0.2-0.5 % 0.2-0.5 % 0.2-0.5 % metFORMIN metFORMIN No metFORMIN HCl 500 MG HCl 500 MG HCl 500 MG metFORMIN metFORMIN No BID metFORMIN HCl 1000 MG HCl 1000 MG HCl 1000 MG hydrOXYzine hydrOXYzine No hydrOXYzin HCl 25 MG HCl 25 MG e HCl 25 MG Dicyclomine Dicyclomine No Dicyclomin HCl 20 MG HCl 20 MG e HCl 20 MG predniSONE predniSONE No predniSONE 20 MG 20 MG 20 MG Combigan Combigan No Combigan 0.2-0.5 % 0.2-0.5 % 0.2-0.5 % Dicyclomine Dicyclomine No Dicyclomin HCl 20 MG HCl 20 MG e HCl 20 MG metFORMIN metFORMIN No QD metFORMIN HCl 500 MG HCl 500 MG HCl 500 MG metFORMIN metFORMIN No BID metFORMIN HCl 1000 MG HCl 1000 MG HCl 1000 MG hydrOXYzine hydrOXYzine No hydrOXYzin HCl 25 MG HCl 25 MG e HCl 25 MG Valtrex 1 Valtrex 1 No 1{table QD Valtrex 1 GM GM t} GM NIFEdipine NIFEdipine No 1{table NIFEdipine ER Osmotic ER Osmotic t} ER Osmotic Release 90 Release 90 Release 90 MG MG MG Cholestyram Cholestyram No 1{packe QD Cholestyra ine 4 GM ine 4 GM t_mixed mine 4 GM _with_w ater_or _non-ca rbonate d_drink } hydrALAZINE hydrALAZINE No hydrALAZIN HCl 100 MG HCl 100 MG E HCl 100 MG predniSONE predniSONE No predniSONE 20 MG 20 MG 20 MG Pravastatin Pravastatin No Pravastati Sodium 40 Sodium 40 n Sodium MG MG 40 MG traZODone traZODone No traZODone HCl 50 MG HCl 50 MG HCl 50 MG metFORMIN metFORMIN No metFORMIN HCl 500 MG HCl 500 MG HCl 500 MG glipiZIDE glipiZIDE No QD glipiZIDE 10 MG 10 MG 10 MG metFORMIN metFORMIN No metFORMIN HCl 1000 MG HCl 1000 MG HCl 1000 MG glipiZIDE glipiZIDE No QD glipiZIDE 10 MG 10 MG 10 MG metFORMIN metFORMIN No metFORMIN HCl 500 MG HCl 500 MG HCl 500 MG hydrALAZINE hydrALAZINE No hydrALAZIN HCl 100 MG HCl 100 MG E HCl 100 MG Dicyclomine Dicyclomine No Dicyclomin HCl 20 MG HCl 20 MG e HCl 20 MG Pravastatin Pravastatin No Pravastati Sodium 40 Sodium 40 n Sodium MG MG 40 MG metFORMIN metFORMIN No metFORMIN HCl 1000 MG HCl 1000 MG HCl 1000 MG Cholestyram Cholestyram No 1{packe QD Cholestyra ine 4 GM ine 4 GM t_mixed mine 4 GM _with_w ater_or _non-ca rbonate d_drink } NIFEdipine NIFEdipine No NIFEdipine ER Osmotic ER Osmotic ER Osmotic Release 90 Release 90 Release 90 MG MG MG Valtrex 1 Valtrex 1 No 1{table QD Valtrex 1 GM GM t} GM Combigan Combigan No Combigan 0.2-0.5 % 0.2-0.5 % 0.2-0.5 % hydrOXYzine hydrOXYzine No hydrOXYzin HCl 25 MG HCl 25 MG e HCl 25 MG traZODone traZODone No QD traZODone HCl 50 MG HCl 50 MG HCl 50 MG glipiZIDE glipiZIDE No QD glipiZIDE 10 MG 10 MG 10 MG predniSONE predniSONE No predniSONE 20 MG 20 MG 20 MG metFORMIN metFORMIN No QD metFORMIN HCl 500 MG HCl 500 MG HCl 500 MG metFORMIN metFORMIN No BID metFORMIN HCl 1000 MG HCl 1000 MG HCl 1000 MG glipiZIDE glipiZIDE No QD glipiZIDE 10 MG 10 MG 10 MG metFORMIN metFORMIN No metFORMIN HCl 500 MG HCl 500 MG HCl 500 MG hydrALAZINE hydrALAZINE No hydrALAZIN HCl 100 MG HCl 100 MG E HCl 100 MG Dicyclomine Dicyclomine No Dicyclomin HCl 20 MG HCl 20 MG e HCl 20 MG Pravastatin Pravastatin No Pravastati Sodium 40 Sodium 40 n Sodium MG MG 40 MG metFORMIN metFORMIN No metFORMIN HCl 1000 MG HCl 1000 MG HCl 1000 MG Cholestyram Cholestyram No 1{packe QD Cholestyra ine 4 GM ine 4 GM t_mixed mine 4 GM _with_w ater_or _non-ca rbonate d_drink } NIFEdipine NIFEdipine No NIFEdipine ER Osmotic ER Osmotic ER Osmotic Release 90 Release 90 Release 90 MG MG MG Valtrex 1 Valtrex 1 No 1{table QD Valtrex 1 GM GM t} GM Combigan Combigan No Combigan 0.2-0.5 % 0.2-0.5 % 0.2-0.5 % hydrOXYzine hydrOXYzine No hydrOXYzin HCl 25 MG HCl 25 MG e HCl 25 MG traZODone traZODone No QD traZODone HCl 50 MG HCl 50 MG HCl 50 MG glipiZIDE glipiZIDE No QD glipiZIDE 10 MG 10 MG 10 MG predniSONE predniSONE No predniSONE 20 MG 20 MG 20 MG metFORMIN metFORMIN No QD metFORMIN HCl 500 MG HCl 500 MG HCl 500 MG metFORMIN metFORMIN No BID metFORMIN HCl 1000 MG HCl 1000 MG HCl 1000 MG glipiZIDE glipiZIDE No QD glipiZIDE 10 MG 10 MG 10 MG metFORMIN metFORMIN No metFORMIN HCl 500 MG HCl 500 MG HCl 500 MG hydrALAZINE hydrALAZINE No hydrALAZIN HCl 100 MG HCl 100 MG E HCl 100 MG Dicyclomine Dicyclomine No Dicyclomin HCl 20 MG HCl 20 MG e HCl 20 MG Pravastatin Pravastatin No Pravastati Sodium 40 Sodium 40 n Sodium MG MG 40 MG metFORMIN metFORMIN No metFORMIN HCl 1000 MG HCl 1000 MG HCl 1000 MG Cholestyram Cholestyram No 1{packe QD Cholestyra ine 4 GM ine 4 GM t_mixed mine 4 GM _with_w ater_or _non-ca rbonate d_drink } NIFEdipine NIFEdipine No NIFEdipine ER Osmotic ER Osmotic ER Osmotic Release 90 Release 90 Release 90 MG MG MG Valtrex 1 Valtrex 1 No 1{table QD Valtrex 1 GM GM t} GM Combigan Combigan No Combigan 0.2-0.5 % 0.2-0.5 % 0.2-0.5 % hydrOXYzine hydrOXYzine No hydrOXYzin HCl 25 MG HCl 25 MG e HCl 25 MG traZODone traZODone No QD traZODone HCl 50 MG HCl 50 MG HCl 50 MG glipiZIDE glipiZIDE No QD glipiZIDE 10 MG 10 MG 10 MG predniSONE predniSONE No predniSONE 20 MG 20 MG 20 MG metFORMIN metFORMIN No QD metFORMIN HCl 500 MG HCl 500 MG HCl 500 MG metFORMIN metFORMIN No BID metFORMIN HCl 1000 MG HCl 1000 MG HCl 1000 MG glipiZIDE glipiZIDE No QD glipiZIDE 10 MG 10 MG 10 MG Pravastatin Pravastatin No Pravastati Sodium 40 Sodium 40 n Sodium MG MG 40 MG Cholestyram Cholestyram No 1{packe QD Cholestyra ine 4 GM ine 4 GM t_mixed mine 4 GM _with_w ater_or _non-ca rbonate d_drink } Dicyclomine Dicyclomine No Dicyclomin HCl 20 MG HCl 20 MG e HCl 20 MG hydrALAZINE hydrALAZINE No hydrALAZIN HCl 100 MG HCl 100 MG E HCl 100 MG metFORMIN metFORMIN No metFORMIN HCl 1000 MG HCl 1000 MG HCl 1000 MG metFORMIN metFORMIN No QD metFORMIN HCl 500 MG HCl 500 MG HCl 500 MG NIFEdipine NIFEdipine No NIFEdipine ER Osmotic ER Osmotic ER Osmotic Release 90 Release 90 Release 90 MG MG MG Valtrex 1 Valtrex 1 No 1{table QD Valtrex 1 GM GM t} GM Combigan Combigan No Combigan 0.2-0.5 % 0.2-0.5 % 0.2-0.5 % traZODone traZODone No QD traZODone HCl 50 MG HCl 50 MG HCl 50 MG glipiZIDE glipiZIDE No QD glipiZIDE 10 MG 10 MG 10 MG predniSONE predniSONE No predniSONE 20 MG 20 MG 20 MG hydrOXYzine hydrOXYzine No hydrOXYzin HCl 25 MG HCl 25 MG e HCl 25 MG metFORMIN metFORMIN No BID metFORMIN HCl 1000 MG HCl 1000 MG HCl 1000 MG glipiZIDE glipiZIDE No QD glipiZIDE 10 MG 10 MG 10 MG metFORMIN metFORMIN No metFORMIN HCl 500 MG HCl 500 MG HCl 500 MG hydrOXYzine hydrOXYzine No hydrOXYzin HCl 25 MG HCl 25 MG e HCl 25 MG metFORMIN metFORMIN No BID metFORMIN HCl 1000 MG HCl 1000 MG HCl 1000 MG Combigan Combigan No Combigan 0.2-0.5 % 0.2-0.5 % 0.2-0.5 % Cholestyram Cholestyram No 1{packe QD Cholestyra ine 4 GM ine 4 GM t_mixed mine 4 GM _with_w ater_or _non-ca rbonate d_drink } hydrOXYzine hydrOXYzine No hydrOXYzin HCl 25 MG HCl 25 MG e HCl 25 MG Valtrex 1 Valtrex 1 No 1{table QD Valtrex 1 GM GM t} GM NIFEdipine NIFEdipine No NIFEdipine ER Osmotic ER Osmotic ER Osmotic Release 90 Release 90 Release 90 MG MG MG Dicyclomine Dicyclomine No Dicyclomin HCl 20 MG HCl 20 MG e HCl 20 MG predniSONE predniSONE No predniSONE 20 MG 20 MG 20 MG Pravastatin Pravastatin No Pravastati Sodium 40 Sodium 40 n Sodium MG MG 40 MG hydrALAZINE hydrALAZINE No hydrALAZIN HCl 100 MG HCl 100 MG E HCl 100 MG traZODone traZODone No QD traZODone HCl 50 MG HCl 50 MG HCl 50 MG glipiZIDE glipiZIDE No QD glipiZIDE 10 MG 10 MG 10 MG metFORMIN metFORMIN No QD metFORMIN HCl 500 MG HCl 500 MG HCl 500 MG hydrOXYzine hydrOXYzine No hydrOXYzin HCl 25 MG HCl 25 MG e HCl 25 MG metFORMIN metFORMIN No BID metFORMIN HCl 1000 MG HCl 1000 MG HCl 1000 MG Combigan Combigan No Combigan 0.2-0.5 % 0.2-0.5 % 0.2-0.5 % Cholestyram Cholestyram No 1{packe QD Cholestyra ine 4 GM ine 4 GM t_mixed mine 4 GM _with_w ater_or _non-ca rbonate d_drink } hydrOXYzine hydrOXYzine No hydrOXYzin HCl 25 MG HCl 25 MG e HCl 25 MG Valtrex 1 Valtrex 1 No 1{table QD Valtrex 1 GM GM t} GM NIFEdipine NIFEdipine No NIFEdipine ER Osmotic ER Osmotic ER Osmotic Release 90 Release 90 Release 90 MG MG MG Dicyclomine Dicyclomine No Dicyclomin HCl 20 MG HCl 20 MG e HCl 20 MG predniSONE predniSONE No predniSONE 20 MG 20 MG 20 MG Pravastatin Pravastatin No Pravastati Sodium 40 Sodium 40 n Sodium MG MG 40 MG hydrALAZINE hydrALAZINE No hydrALAZIN HCl 100 MG HCl 100 MG E HCl 100 MG traZODone traZODone No QD traZODone HCl 50 MG HCl 50 MG HCl 50 MG glipiZIDE glipiZIDE No QD glipiZIDE 10 MG 10 MG 10 MG metFORMIN metFORMIN No QD metFORMIN HCl 500 MG HCl 500 MG HCl 500 MG Esomeprazol Esomeprazol No 1{capsu QD Esomeprazo e Magnesium e Magnesium le} le 40 MG 40 MG Magnesium 40 MG Combigan Combigan No Combigan 0.2-0.5 % 0.2-0.5 % 0.2-0.5 % predniSONE predniSONE No predniSONE 20 MG 20 MG 20 MG NIFEdipine NIFEdipine No NIFEdipine ER Osmotic ER Osmotic ER Osmotic Release 90 Release 90 Release 90 MG MG MG glipiZIDE glipiZIDE No QD glipiZIDE 10 MG 10 MG 10 MG metFORMIN metFORMIN No BID metFORMIN HCl 1000 MG HCl 1000 MG HCl 1000 MG Valtrex 1 Valtrex 1 No 1{table QD Valtrex 1 GM GM t} GM hydrOXYzine hydrOXYzine No 1{table TID hydrOXYzin HCl 25 MG HCl 25 MG t} e HCl 25 MG hydrALAZINE hydrALAZINE No hydrALAZIN HCl 100 MG HCl 100 MG E HCl 100 MG Toujeo Max Toujeo Max No Toujeo Max SoloStar SoloStar SoloStar 300 UNIT/ML 300 UNIT/ML 300 UNIT/ML traZODone traZODone No 1{table QD traZODone HCl 50 MG HCl 50 MG t_at_be HCl 50 MG dtime_a s_neede d} Cholestyram Cholestyram No 1{packe QD Cholestyra ine 4 GM ine 4 GM t_mixed mine 4 GM _with_w ater_or _non-ca rbonate d_drink } Pravastatin Pravastatin No 1{table QD Pravastati Sodium 40 Sodium 40 t} n Sodium MG MG 40 MG Dicyclomine Dicyclomine No Dicyclomin HCl 20 MG HCl 20 MG e HCl 20 MG metFORMIN metFORMIN No QD metFORMIN HCl 500 MG HCl 500 MG HCl 500 MG NIFEdipine NIFEdipine No NIFEdipine ER Osmotic ER Osmotic ER Osmotic Release 90 Release 90 Release 90 MG MG MG metFORMIN metFORMIN No 1{table BID metFORMIN HCl 1000 MG HCl 1000 MG t_with_ HCl 1000 a_meal} MG Pravastatin Pravastatin No Pravastati Sodium 40 Sodium 40 n Sodium MG MG 40 MG Valtrex 1 Valtrex 1 No 1{table QD Valtrex 1 GM GM t} GM metFORMIN metFORMIN No metFORMIN HCl 500 MG HCl 500 MG HCl 500 MG Basaglar Basaglar No Basaglar KwikPen 100 KwikPen 100 KwikPen UNIT/ML UNIT/ML 100 UNIT/ML hydrALAZINE hydrALAZINE No hydrALAZIN HCl 100 MG HCl 100 MG E HCl 100 MG glipiZIDE glipiZIDE No glipiZIDE 10 MG 10 MG 10 MG predniSONE predniSONE No predniSONE 20 MG 20 MG 20 MG Solifenacin Solifenacin No 1{table QD Solifenaci Succinate 5 Succinate 5 t} n MG MG Succinate 5 MG metFORMIN metFORMIN No 1{table BID metFORMIN HCl 1000 MG HCl 1000 MG t_with_ HCl 1000 a_meal} MG hydrOXYzine hydrOXYzine No hydrOXYzin HCl 25 MG HCl 25 MG e HCl 25 MG Immunizations Ordered Immunization Filled Immunization Date Status Commen ts Source Name Name Flucelvax - Flucelvax - 2021-07-31 [facility] - [facility] Flucelvax - Flucelvax - 2021-07-31 [facility]:04:00 - [facility] Flucelvax - Flucelvax - 2021-07-31 Completed [facility]:04:00 - [facility] Flucelvax - Flucelvax - 2021-07-31 Completed [facility] multidose [facility]ial 17:04:00 - [facility] Flucelvax - Flucelvax - 2021-07-31 Completed [facility] multidose vial 17:04:00 - [facility] Flucelvax - Flucelvax - 2021-07-31 Completed [facility] multidose vial 17:04:00 - [facility] Flucelvax - Flucelvax - 2021-07-31 Completed [facility] multidose vial 17:04:00 - [facility] Flucelvax - Flucelvax - 2021-07-31 Completed [facility] multidose vial 17:04:00 - [facility] Flucelvax - Flucelvax - 2021-07-31 Completed [facility] multidose vial 17:04:00 - [facility] Flucelvax - Flucelvax - 2021-07-31 Completed [facility] multidose vial 17:04:00 - [facility] Flucelvax - Flucelvax - 2021-07-31 Completed [facility] multidose vial 17:04:00 - [facility] Flucelvax - Flucelvax - 2021-07-31 Completed [facility] multidose vial 17:04:00 - [facility] Flucelvax - Flucelvax - 2021-07-31 Completed [facility] multidose vial 17:04:00 - [facility] Flucelvax - Flucelvax - 2021-07-31 Completed [facility] multidose vial 17:04:00 - [facility] Flucelvax - Flucelvax - 2021-07-31 Completed [facility] multidose vial 17:04:00 - [facility] Flucelvax - Flucelvax - 2021-07-31 Completed [facility] multidose vial 17:04:00 - [facility] Flucelvax - Flucelvax - 2021-07-31 Completed [facility] multidose vial 17:04:00 - [facility] Flucelvax - Flucelvax - 2021-07-31 Completed [facility] multidose vial 17:04:00 - [facility] Flucelvax - Flucelvax - 2021-07-31 Completed [facility] multidose vial 17:04:00 - [facility] Flucelvax - Flucelvax - 2021-07-31 Completed [facility] multidose vial 17:04:00 - [facility] Flucelvax - Flucelvax - 2021-07-31 Completed [facility] multidose vial 17:04:00 - [facility] Flucelvax - Flucelvax - 2021-07-31 Completed [facility] multidose vial 17:04:00 - [facility] Flucelvax - single Flucelvax - single 2019-05-05 Completed [facility] dose syringe dose syringe 17:06:00 - [facility] Flucelvax - single Flucelvax - single 2019-05-05 Completed [facility] dose syringe dose syringe 17:06:00 - [facility] Flucelvax - single Flucelvax - single 2019-05-05 Completed [facility] dose syringe dose syringe 17:06:00 - [facility] Flucelvax - single Flucelvax - single 2019-05-05 Completed [facility] dose syringe dose syringe 17:06:00 - [facility] Flucelvax - single Flucelvax - single 2019-05-05 Completed [facility] dose syringe dose syringe 17:06:00 - [facility] Flucelvax - single Flucelvax - single 2019-05-05 Completed [facility] dose syringe dose syringe 17:06:00 - [facility] Flucelvax - single Flucelvax - single 2019-05-05 Completed [facility] dose syringe dose syringe 17:06:00 - [facility] Flucelvax - single Flucelvax - single 2019-05-05 Completed [facility] dose syringe dose syringe 17:06:00 - [facility] Flucelvax - single Flucelvax - single 2019-05-05 Completed [facility] dose syringe dose syringe 17:06:00 - [facility] Flucelvax - single Flucelvax - single 2019-05-05 Completed [facility] dose syringe dose syringe 17:06:00 - [facility] Flucelvax - single Flucelvax - single 2019-05-05 Completed [facility] dose syringe dose syringe 17:06:00 - [facility] Flucelvax - single Flucelvax - single 2019-05-05 Completed [facility] dose syringe dose syringe 17:06:00 - [facility] Flucelvax - single Flucelvax - single 2019-05-05 Completed [facility] dose syringe dose syringe 17:06:00 - [facility] Flucelvax - single Flucelvax - single 2019-05-05 Completed [facility] dose syringe dose syringe 17:06:00 - [facility] Flucelvax - single Flucelvax - single 2019-05-05 Completed [facility] dose syringe dose syringe 17:06:00 - [facility] Flucelvax - single Flucelvax - single 2019-05-05 Completed [facility] dose syringe dose syringe 17:06:00 - [facility] Flucelvax - single Flucelvax - single 2019-05-05 Completed [facility] dose syringe dose syringe 17:06:00 - [facility] Flucelvax - single Flucelvax - single 2019-05-05 Completed [facility] dose syringe dose syringe 17:06:00 - [facility] Flucelvax - single Flucelvax - single 2019-05-05 Completed [facility] dose syringe dose syringe 17:06:00 - [facility] Flucelvax - single Flucelvax - single 2019-05-05 Completed [facility] dose syringe dose syringe 17:06:00 - [facility] Flucelvax - single Flucelvax - single 2019-05-05 Completed [facility] dose syringe dose syringe 17:06:00 - [facility] Flucelvax - single Flucelvax - single 2019-05-05 Completed [facility] dose syringe dose syringe 17:06:00 - [facility] Flucelvax - single Flucelvax - single 2019-05-05 Completed [facility] dose syringe dose syringe 17:06:00 - [facility] Vital Signs Vital Name Observation Time Observation Value Comments Source height 2022-09-15 16:00:00 73 [in_i] [facility] weight 2022-09-15 16:00:00 227.8 [lb_av] [facility] temperature 2022-09-15 16:00:00 97.3 [degF] [facility] bmi 2022-09-15 16:00:00 30.05 kg/m2 [facility] oximetry 2022-09-15 16:00:00 95 % [facility] respiratory rate 2022-09-15 16:00:00 16 /min [facility] blood pressure 2022-09-15 16:00:00 134 mm[Hg] [facility] - systolic [facility] blood pressure 2022-09-15 16:00:00 79 mm[Hg] [facility] - diastolic [facility] height 2022-09-15 16:00:00 73 [in_i] [facility] weight 2022-09-15 16:00:00 227.8 [lb_av] [facility] temperature 2022-09-15 16:00:00 97.3 [degF] [facility] bmi 2022-09-15 16:00:00 30.05 kg/m2 [facility] oximetry 2022-09-15 16:00:00 95 % [facility] respiratory rate 2022-09-15 16:00:00 16 /min Comm on [facility] blood pressure 2022-09-15 16:00:00 134 mm[Hg] [facility] systolic [facility] blood pressure 2022-09-15 16:00:00 79 mm[Hg] [facility] - diastolic [facility] height 2022-09-03 17:00:00 73 [in_i] [facility] weight 2022-09-03 17:00:00 225.4 [lb_av] Common [facility] temperature 2022-09-03 17:00:00 98.6 [degF] Common [facility] bmi 2022-09-03 17:00:00 29.73 kg/m2 Common S [facility] oximetry 2022-09-03 17:00:00 99 % Common S [facility] respiratory rate 2022-09-03 17:00:00 18 /min Comm on [facility] blood pressure 2022-09-03 17:00:00 136 mm[Hg] Common [facility] - systolic [facility] blood pressure 2022-09-03 17:00:00 80 mm[Hg] Common [facility] - diastolic [facility] height 2022-06-16 16:00:00 73 [in_i] Common [facility] weight 2022-06-16 16:00:00 220 [lb_av] [facility] temperature 2022-06-16 16:00:00 97.5 [degF] Common [facility] bmi 2022-06-16 16:00:00 29.02 kg/m2 [facility] oximetry 2022-06-16 16:00:00 96 % [facility] respiratory rate 2022-06-16 16:00:00 16 /min Comm on [facility] blood pressure 2022-06-16 16:00:00 160 mm[Hg] Common [facility] - systolic [facility] blood pressure 2022-06-16 16:00:00 90 mm[Hg] Common [facility] - diastolic [facility] blood pressure 2021-07-18 17:00:00 91 mm[Hg] Common [facility] - diastolic [facility] height 2021-07-18 17:00:00 73 [in_i] [facility] weight 2021-07-18 17:00:00 225 [lb_av] [facility] temperature 2021-07-18 17:00:00 97.9 [degF] [facility] bmi 2021-07-18 17:00:00 29.68 kg/m2 [facility] oximetry 2021-07-18 17:00:00 99 % [facility] respiratory rate 2021-07-18 17:00:00 18 /min Comm on [facility] blood pressure 2021-07-18 17:00:00 146 mm[Hg] [facility] systolic [facility] Procedures This patient has no known procedures. Encounters Start End Encounter Admission Attending Care Care Encounter Source Date/Time Date/Time Type Type Clinicians Facility Department ID 2023-01-13 Outpatient Mathews, STLMLC STLMLC [id number] Common 08:24:01 Mary [id number] [facility] 2022-12-16 Outpatient Mathews, STLMLC STLMLC [id number] Common 14:33:02 Mary [id number] [facility] 2022-11-11 Outpatient Mathews, STLMLC STLMLC [id number] Common 08:03:02 Mary [id number] [facility] 2022-10-13 Outpatient Mathews, STLMLC STLMLC [id number] Common 15:31:02 Mary [id number] [facility] 2022-09-16 Outpatient Mathews, STLMLC STLMLC [id number] Common 11:26:01 Mary [id number] [facility] 2022-09-11 Outpatient Mathews, STLMLC STLMLC [id number] Common 09:33:00 Mary [id number] [facility] 2022-06-13 Outpatient Mathews, STLMLC STLMLC [id number] Common 09:11:01 Mary [id number] [facility] 2022-03-27 Outpatient Mathews, STLMLC STLMLC [id number] Common 11:28:02 Mary [facility] 2022-03-17 Outpatient Mathews, STLMLC STLMLC [id number] Common 09:41:01 Mary [facility] 2022-03-11 Outpatient Mathews, STLMLC STLMLC [id number] Common 11:41:02 Mary [facility] 2022-03-06 Outpatient Mathews, STLMLC STLMLC [id number] Common 14:55:01 Mary [facility] 2022-02-24 Outpatient Mathews, STLMLC STLMLC [id number] Common 08:36:04 Mary [facility] 2022-02-07 Outpatient Mathews, STLMLC STLMLC [id number] Common 11:10:02 Mary [facility] 2021-12-23 Outpatient Mathews, STLMLC STLMLC [id number] Common 16:24:01 Mary [facility] 2021-10-21 Outpatient Mathews, STLMLC STLMLC [id number] Common 14:49:01 Mary [facility] 2021-09-04 Outpatient Mathews, STLMLC STLMLC [id number] Common 14:26:58 Mary [facility] 2021-09-04 Outpatient Mathews, STLMLC STLMLC [id number] Common 14:23:10 Mary [id number] [facility] 2022-09-15 2022-09-15 OFFICE STLMLC STLMLC [id number] Co mmon 00:00:00 00:00:00 VISIT [facility] ESTAB PT - CHI LEVEL 4 [facility] 2022-09-15 2022-09-15 INIT STLMLC STLMLC [id number] Co mmon 00:00:00 00:00:00 ANNUAL MCR Spi rit WELLNESS - CHI VISIT [facility] 2022-09-10 2022-09-10 (TEL) STLMLC STLMLC [id number] Co mmon 00:00:00 00:00:00 [facility] 2022-09-03 2022-09-03 OFFICE STLMLC STLMLC [id number] Co mmon 00:00:00 00:00:00 VISIT EST Spir it PT LEVEL 3 - [facility] 2022-07-29 2022-07-29 (TEL) STLMLC STLMLC [id number] Co mmon 00:00:00 00:00:00 [facility] 2022-07-22 2022-07-22 (NV) Nurse STLMLC STLMLC [id number] Common 00:00:00 00:00:00 Visit [facility] 2022-07-15 2022-07-15 (NV) Nurse STLMLC STLMLC [id number] Common 00:00:00 00:00:00 Visit [facility] 2022-07-09 2022-07-09 (TEL) STLMLC STLMLC [id number] Co mmon 00:00:00 00:00:00 [facility] 2022-07-08 2022-07-08 (NV) Nurse STLMLC STLMLC [id number] Common 00:00:00 00:00:00 Visit [facility] 2022-07-01 2022-07-01 (TEL) STLMLC STLMLC [id number] Co mmon 00:00:00 00:00:00 [facility] 2022-07-01 2022-07-01 ([place]) Nurse STLMLC STLMLC [id number] Common 00:00:00 00:00:00 Visit [facility] 2022-06-26 2022-06-26 (TEL) STLMLC STLMLC [id number] Co mmon 00:00:00 00:00:00 [facility] 2022-06-25 2022-06-25 (TEL) STLMLC STLMLC [id number] Co mmon 00:00:00 00:00:00 [facility] 2022-06-24 2022-06-24 (NV) Nurse STLMLC STLMLC [id number] Common 00:00:00 00:00:00 Visit [facility] 2022-06-17 2022-06-17 ([place]) Nurse STLMLC STLMLC [id number] Common 00:00:00 00:00:00 Visit [facility] 2022-06-16 2022-06-16 OFFICE STLMLC STLMLC [id number] Co mmon 00:00:00 00:00:[address] [facility] LEVEL 4 [facility] 2022-06-03 2022-06-03 (NV) Nurse STLMLC STLMLC [id number] Common 00:00:00 00:00:00 Visit [facility] 2022-05-27 2022-05-27 ([place]) Nurse STLMLC STLMLC [id number] Common 00:00:00 00:00:00 Visit [facility] 2022-05-20 2022-05-20 (NV) Nurse STLMLC STLMLC [id number] Common 00:00:00 00:00:00 Visit [facility] 2022-05-13 2022-05-13 (NV) Nurse STLMLC STLMLC [id number] Common 00:00:00 00:00:00 Visit [facility] 2022-05-06 2022-05-06 ([place]) Nurse STLMLC STLMLC [id number] Common 00:00:00 00:00:00 Visit [facility] 2022-04-21 2022-04-21 ambulatory STLMLC STLMLC [id number] Common 00:00:00 00:00:00 [facility] 2022-03-31 2022-03-31 ambulatory STLMLC STLMLC [id number] Common 00:00:00 00:00:00 [facility] 2022-03-20 2022-03-20 ambulatory STLMLC STLMLC [id number] Common 00:00:00 00:00:00 [facility] 2022-03-17 2022-03-17 ambulatory STLMLC STLMLC [id number] Common 00:00:00 00:00:00 [facility] 2022-03-14 2022-03-14 ambulatory STLMLC STLMLC [id number] Common 00:00:00 00:00:00 [facility] 2022-03-13 2022-03-13 ambulatory STLMLC STLMLC [id number] Common 00:00:00 00:00:00 [facility] 2022-03-11 2022-03-11 ambulatory STLMLC STLMLC [id number] Common 00:00:00 00:00:00 [facility] 2022-03-06 2022-03-06 ambulatory STLMLC STLMLC [id number] Common 00:00:00 00:00:00 [facility] 2022-02-26 2022-02-26 ambulatory STLMLC STLMLC [id number] Common 00:00:00 00:00:00 [facility] 2022-02-07 2022-02-07 ambulatory STLMLC STLMLC [id number] Common 00:00:00 00:00:00 [facility] 2021-12-20 2021-12-20 ambulatory STLMLC STLMLC [id number] Common 00:00:00 00:00:00 [facility] 2021-11-12 2021-11-12 ambulatory STLMLC STLMLC [id number] Common 00:00:00 00:00:00 [facility] 2021-10-16 2021-10-16 ambulatory STLMLC STLMLC [id number] Common 00:00:00 00:00:00 [facility] 2021-07-31 2021-07-31 ambulatory STLMLC STLMLC [id number] Common 00:00:00 00:00:00 [facility] 2021-07-24 2021-07-24 (TEL) STLMLC STLMLC [id number] Co mmon 00:00:00 00:00:00 [facility] 2021-07-18 2021-07-18 OFFICE STLMLC STLMLC [id number] Co mmon 00:00:00 00:00:00 VISIT EST Spir it PT LEVEL 3 [facility] Results Test Description Test Time Test Comments Results Result Comments Source HEMOGLOBIN A1C 2022-06-16 00:00:00 Test Item Value Reference Range Interpretation Comme nts A1C (test code = 4548-4) 9.4
[2023-01-30] MEDS ORDERED: HYDROCODONE/APAP 10/325 TAB ONE (20:47)
[2023-01-30] MEDS ORDERED: VANCOMYCIN 1 GM/VIAL ONE (20:48)
[2023-01-30] MEDS ORDERED: PIPERACIL/TAZO 3.375 GM VIAL IV ONE (20:48)
[2023-01-30] MEDS ORDERED: NA CHLORIDE 0.9% 250 ML ONE ×2 (20:48→23:26)
[2023-01-30] MEDS ORDERED: ONDANSETRON 4 MG/2 ML VIAL ONE (20:48)
[2023-01-30] MEDS ORDERED: NA CHLORIDE 0.9% 100 ML ONE (20:48)
[2023-01-30 21:03] LABS: Absolute Lymphocytes (CBC) 2.7 K/uL (0.7-4.9); Hematocrit 38.4 % (39.6-49.0); Lymphocytes % 22.7 % (15.3-44.8); MCV 87.5 fL (80-100); MPV 8.6 fL (7.6-11.3); RBC Red Blood Cell Count 4.39 M/uL (4.33-5.43)
[2023-01-30 21:13] LABS: Protime INR 0.93
[2023-01-30 21:23] LABS: ALT/SGPT 24 U/L (16-61); AST/SGOT 13 U/L (15-37); Albumin 3.4 g/dL (3.4-5.0); Alkaline Phosphatase 65 U/L (45-117); BUN Blood Urea Nitrogen 8 mg/dL (7-18); Bicarbonate 24 mEq/L (21-32); Bilirubin Direct < 0.1 mg/dL (0-0.2); Bilirubin Indirect, Calculated ND mg/dL (0.2-0.8); Bilirubin Total 0.2 mg/dL (0.2-1.0); Glomerular Filtration Rate 97 ml/min (=/>90); Glucose Level 186 mg/dL (74-106); Magnesium 2.2 mg/dL (1.6-2.4); NT PRO-BNP 135 pg/mL (<125); Potassium 2.8 mEq/L (3.5-5.1); Protein, Total 7.2 g/dL (6.4-8.2); Sodium Level 138 mEq/L (136-145); Troponin High Sensitivity 16.2 pg/mL (<58.9)
--- NOTE | 2023-01-30 21:25 | RAD REPORT ---
EXAM DESCRIPTION: RAD - Foot Right 3 View - 01/30/2023 9:17 pm CLINICAL HISTORY: PAIN COMPARISON: No comparisons FINDINGS: Moderate soft tissue swelling is seen the dorsum of the forefoot. No fracture, dislocation aggressive. No evidence of soft tissue gas. Mild atherosclerosis.
[2023-01-30] MEDS ORDERED: POTASSIUM CL SA 10 MEQ TAB PO ONE (23:25)
[2023-01-30] MEDS ORDERED: KCL 20 MEQ/100 mL IVPB 100 ML IV ONE (23:26)
--- NOTE | 2023-01-30 23:41 | RAD REPORT ---
EXAM DESCRIPTION: US - Extremity Venous Uni Ltd - 01/30/2023 10:33 pm CLINICAL HISTORY: swelling , pain , rule out DVT Leg swelling and edema. COMPARISON: Extremity Venous Uni Ltd dated 1Extrem Venous W Compress Dima dated 03/15/2019 FINDINGS: Right lower extremity venous system was interrogated with Doppler technique. Normal flow, compressibility and augmentation was noted. There is no DVT present. IMPRESSION: No evidence of right lower extremity deep venous thrombosis.
--- NOTE | 2023-01-31 00:20 | EDPHYS ---
Physician Documentation [facility] Name: Neftali Gill Jr Age: 67 yrs Sex: Male : 1955 Arrival Date: 01/30/2023 Time: 18:28 Bed 20 Private MD: Mary Alberto ED Physician Clint Galindo HPI: 01/30 20:03 This 67 yrs old Black Male presents to ER via Ambulatory with complaints of Skin sp4 Problem, Leg Swelling. 20:03 . sp4 20:38 67-year-old male with past medical history of GERD insulin-dependent diabetes, sp4 hypertension, angioedema, complications of diabetes presents with 3 days of worsening right lower extremity pain associated with redness and also patient reported that right great toe skin came off today from the bottom of his toe. Patient reported associated right lower extremity swelling and pain with ambulation. There is prior medical history that states that patient had moderate to severe angioedema with admission on 05/18/2022. Patient's medications include Nexium, glipizide, metformin, hydralazine, pravastatin, hydroxyzine, metformin, nifedipine, nifedipine, pregabalin, hydrocodone, prednisone. . Historical: - Allergies: 19:19 ACES; kl 19:19 Cephalexin; kl 19:19 Diovan; kl 19:19 Lisinopril; kl 19:19 nebivolol HCl; kl 19:19 NSAIDS; kl 19:19 valsartan; kl - PMHx: 19:19 ANGIOEDEMA; GERD; High Cholesterol; Hypertension; NIDDM; kl - PSHx: 19:19 TURP; Cholecystectomy; kl - Immunization history:: Adult Immunizations up to date. - Social history:: Smoking status: Patient reports the use of cigarette tobacco products. ROS: 20:42 Constitutional: Negative for fever, chills, and weight loss, Eyes: Negative for injury, sp4 pain, redness, and discharge, ENT: Negative for injury, pain, and discharge, Neck: Negative for injury, pain, and swelling, Cardiovascular: Negative for chest pain, palpitations, and edema, Respiratory: Negative for shortness of breath, cough, wheezing, and pleuritic chest pain, Abdomen/GI: Negative for abdominal pain, nausea, vomiting, diarrhea, and constipation, Back: Negative for injury and pain, : Negative for injury, bleeding, discharge, and swelling, MS/Extremity: Negative for injury and deformity, positive right lower extremity pain tenderness and swelling. Skin: Negative for injury, rash, and discoloration, positive redness, swelling, right lower extremity Neuro: Negative for headache, weakness, numbness, tingling, and seizure, Psych: Negative for depression, anxiety, Allergy/Immunology: Negative for hives, rash, and allergies Endocrine: Negative for neck swelling, polydipsia, polyuria, polyphagia, and weight changes Hematologic/Lymphatic: Negative for swollen nodes, abnormal bleeding, and unusual bruising Exam: 01/31 00:12 Constitutional: This is a well developed, well nourished patient who is awake, alert, sp4 and in no acute distress. Head/Face: Normocephalic, atraumatic. Eyes: Pupils equal round and reactive to light, extra-ocular motions intact. Lids and lashes normal. Conjunctiva and sclera are not injected. Cornea within normal limits. Periorbital areas with no swelling, redness, or edema. ENT: Nares patent. No nasal discharge, no septal abnormalities noted. Tympanic membranes are normal and external auditory canals are clear. Oropharynx with no redness, swelling, or masses, exudates, or evidence of obstruction, uvula midline. Mucous membranes moist. Neck: Trachea midline, no thyromegaly or masses palpated, and no cervical lymphadenopathy. Supple, full range of motion without nuchal rigidity, or vertebral point tenderness. Chest/axilla: Normal chest wall appearance and motion. Nontender with no deformity. No lesions are appreciated. Cardiovascular: Regular rate and rhythm with a normal S1 and S2. No gallops, murmurs, or rubs. Normal PMI, no JVD. No pulse deficits. Respiratory: Lungs have equal breath sounds bilaterally, clear to auscultation and percussion. No rales, rhonchi or wheezes noted. No increased work of breathing, no retractions or nasal flaring. Abdomen/GI: Soft, non-tender, with normal bowel sounds. No distension or tympany. No guarding or rebound. No evidence of tenderness throughout. Back: No spinal tenderness. No costovertebral tenderness. Male : Normal genitalia with no discharge or lesions. Skin: Warm, dry with normal turgor. Normal color with no rashes, no lesions, and no evidence of cellulitis. MS/ Extremity: Pulses equal, no cyanosis. Neurovascular intact. Full, normal range of motion. positive for right lower extremity swelling, redness, tenderness, including fluid also there is a denuded skin right great toe with infectious male associated with cellulitis. There is possible infectious entry point at the right great toe. Peripheral pulses preserved in the foot. Neuro: Awake and alert, GCS 15, oriented to person, place, time, and situation. Cranial nerves II-XII grossly intact. Motor strength 5/5 in all extremities. Sensory grossly intact. Psych: Awake, alert, with orientation to person, place and time. Behavior, mood, and affect are within normal limits Vital Signs: 01/30 19:17 BP 178 / 87; Pulse 71; Resp 18; Temp 98.3(TE); Pulse Ox 96% ; Weight 102.06 kg (R); kl Height 6 ft. 1 in. ; Pain 9/10; 21:30 BP 164 / 81; Pulse 70; Resp 16; Pulse Ox 99% on R/A; jb4 22:30 BP 165 / 89; Pulse 62; Resp 16; Pulse Ox 99% on R/A; jb4 23:30 BP 178 / 93; Pulse 62; Resp 16; Pulse Ox 99% on R/A; jb4 19:17 Body Mass Index 29.68 (102.06 kg, 185.42 cm) kl 19:17 Pain Scale: Adult kl MDM: 20:13 Patient medically screened. sp4 01/31 00:12 Differential Diagnosis sepsis, Cellulitis, gangrene. Data reviewed: vital signs, nurses sp4 notes, old medical records, lab test result(s), cardiac enzymes, electrolytes, hepatic panel, radiologic studies, plain films, ultrasound. Consideration of Admission/Observation Patient was admitted/placed on observation. Escalation of care including admission/observation considered. Management of patient was discussed with the following: Hospitalist: Patient discussed with admitting hospitalist.. ED course: Patient has cellulitis of right lower extremity associated with denuded skin over the right great toe. Patient warrants management with IV antibiotics secondary to history of diabetes. Patient will be admitted to the hospitalist service Dr. crockett for further management.. 01/30 20:12 Order name: Basic Metabolic Panel; Complete Time: 22:15 sp4 01/30 20:12 Order name: CBC with Diff; Complete Time: 22:15 4 01/30 20:12 Order name: LFT's; Complete Time: 22:15 [facility] 01/30 20:12 Order name: Magnesium; Complete Time: 22:15 [facility] 01/30 20:12 Order name: NT PRO-BNP; Complete Time: 22:15 [facility] 01/30 20:12 Order name: PT-INR; Complete Time: 22:15 [facility] 01/30 20:12 Order name: Troponin HS; Complete Time: 22:15 sp4 01/30 20:12 Order name: Blood Culture Adult (2) sp4 01/31 02:13 Order name: CBC with Automated Diff EDMS 01/31 02:31 Order name: Basic Metabolic Panel EDMS 01/31 02:31 Order name: Magnesium EDMS 01/31 02:34 Order name: Hemoglobin A1c EDMS 01/31 05:45 Order name: Glucose, Ancillary Testing EDMS 01/31 09:00 Order name: Glucose, Ancillary Testing EDMS 01/30 20:42 Order name: Extremity Venous Uni Ltd US; Complete Time: 00:08 4 01/30 20:42 Order name: Foot Right 3 View XRAY; Complete Time: 22:15 [facility] 01/30 20:12 Order name: EKG; Complete Time: 20:15 [facility] 01/30 20:12 Order name: Cardiac monitoring; Complete Time: 20:32 [facility] 01/30 20:12 Order name: EKG - Nurse/Tech; Complete Time: 20:32 [facility] 01/30 20:12 Order name: IV Saline Lock; Complete Time: 20:32 [facility] 01/30 20:12 Order name: Labs collected and sent; Complete Time: 20:55 [facility] 01/30 20:12 Order name: O2 Per Protocol; Complete Time: 20:33 [facility] 01/30 20:12 Order name: O2 Sat Monitoring; Complete Time: 20:33 [facility] Administered Medications: 01/30 20:51 Drug: Duncan PO 10 mg-325 mg 1 tabs Route: PO; jb4 21:00 Drug: Ondansetron IVP 4 mg Route: IVP; Site: left forearm; jb4 21:00 Drug: Piperacillin-Tazobactam IVPB 3.375 grams Route: IVPB; Infused Over: 60 mins; jb4 Site: left forearm; 22:58 Drug: vancoMYCIN IVPB 1 grams Route: IVPB; Infused Over: 2 hrs; Site: left antecubital; jb4 23:28 Drug: Potassium Chloride IV 20 mEq Route: IV; Rate: calculated rate; Site: right jb4 forearm; 23:29 Drug: Potassium Chloride PO 40 mEq Route: PO; jb4 23:29 Drug: NS 0.9% IV 250 ml Route: IV; Rate: 125 ml/hr; Site: right forearm; jb4 01/31 00:22 Drug: Duncan PO 10 mg-325 mg 1 tabs Route: PO; jb4 Disposition Summary: 01/31/23 00:19 Hospitalization Ordered Hospitalization Status: Inpatient Admission sp4 Provider: Yash Crockett spHarry Condition: Stable sp4 Problem: new sp4 Symptoms: have improved sp4 Bed/Room Type: Standard sp4 Location: Telemetry/MedSurg (observation)(01/31/23 12:49) kj1 Room Assignment: [facility](01/31/23 12:53) [facility] Diagnosis - Cellulitis of right lower limb sp4 - Right foot right ankle cellulitis, hypokalemia, poorly controlled diabetes mellitus sp4 Forms: - Medication Reconciliation Form sp4 - SBAR form sp4 Signatures: Dispatcher [employer] EDPratima Posey RN RN kl Bryson, James, RN RN jb4 Aguilar, Jose, RN RN ja1 Jackson, Kandis kj1 Ines Tucker Sergey, MD MD sp4 Corrections: (The following items were deleted from the chart) 01/30 19:21 19:19 PSHx: None; tania marin 01/31 00:14 06 20:42 Constitutional: Negative for fever, chills, and weight loss, Eyes: Negative sp4 for injury, pain, redness, and discharge, ENT: Negative for injury, pain, and discharge, Neck: Negative for injury, pain, and swelling, sp4 01/31 00:20 00:19 Telemetry/MedSurg (Inpatient) sp4 bc6 00:20 00:19 sp4 bc6 12:49 00:20 [facility] ER HOLD bc6 kj1 12:49 00:20 ERHOLD- bc6 kj1 12:53 12:49 217 kj1 ja1
--- NOTE | 2023-01-31 00:20 | ER ---
Nurse's Notes [facility] Name: Neftali Gill Jr Age: 67 yrs Sex: Male : 1955 Arrival Date: 01/30/2023 Time: 18:28 Bed 20 Private MD: Mary Alberto Diagnosis: Cellulitis of right lower limb;Right foot right ankle cellulitis, hypokalemia, poorly controlled diabetes mellitus Presentation: 01/30 19:17 Chief complaint: Patient states: right leg pain x 3 days pain and swelling increasing kl reports skin sloughing from right great toe. Coronavirus screen: Vaccine status: Patient reports receiving the 2nd dose of the covid vaccine. Ebola Screen: Patient negative for fever greater than or equal to 101.5 degrees Fahrenheit, and additional compatible Ebola Virus Disease symptoms. Initial Sepsis Screen: Does the patient meet any 2 criteria? No. Patient's initial sepsis screen is negative. Does the patient have a suspected source of infection? Yes: Skin breakdown/wound. Risk Assessment: Do you want to hurt yourself or someone else? Patient reports no desire to harm self or others. Onset of symptoms was January 27, 2023. 19:17 Method Of Arrival: Ambulatory kl 19:17 Acuity: DUNCAN 3 kl Triage Assessment: 19:21 General: Appears uncomfortable, Behavior is calm, cooperative. Pain: Complains of pain kl in right clement, anterior aspect of right ankle and dorsum of right foot Pain currently is 9 out of 10 on a pain scale. Historical: - Allergies: 19:19 ACES; kl 19:19 Cephalexin; kl 19:19 Diovan; kl 19:19 Lisinopril; kl 19:19 nebivolol HCl; kl 19:19 NSAIDS; kl 19:19 valsartan; kl - PMHx: 19:19 ANGIOEDEMA; GERD; High Cholesterol; Hypertension; NIDDM; kl - PSHx: 19:19 TURP; Cholecystectomy; kl - Immunization history:: Adult Immunizations up to date. - Social history:: Smoking status: Patient reports the use of cigarette tobacco products. Assessment: 20:30 General: Appears in no apparent distress. uncomfortable, Behavior is calm, cooperative, jb4 appropriate for age. Pain: Complains of pain in plantar aspect of right first toe Pain does not radiate. Pain currently is 6 out of 10 on a pain scale. Neuro: Level of Consciousness is awake, alert, obeys commands, Oriented to person, place, time, situation. Cardiovascular: Patient's skin is warm and dry. Respiratory: Airway is patent Respiratory effort is even, unlabored, Respiratory pattern is regular, symmetrical. GI: No signs and/or symptoms were reported involving the gastrointestinal system. : No signs and/or symptoms were reported regarding the genitourinary system. EENT: No signs and/or symptoms were reported regarding the EENT system. Derm: Skin is dry, Skin is normal, Skin temperature is warm. Musculoskeletal: Circulation, motion, and sensation intact. Range of motion: intact in all extremities. Injury Description: Pt reports skin peeled off his right first toe. 21:30 Reassessment: Patient appears in no apparent distress at this time. Patient and/or jb4 family updated on plan of care and expected duration. Pain level reassessed. Patient is alert, oriented x 3, equal unlabored respirations, skin warm/dry/pink. 22:30 Reassessment: Patient appears in no apparent distress at this time. Patient and/or jb4 family updated on plan of care and expected duration. Pain level reassessed. Patient is alert, oriented x 3, equal unlabored respirations, skin warm/dry/pink. 23:30 Reassessment: Patient appears in no apparent distress at this time. Patient and/or jb4 family updated on plan of care and expected duration. Pain level reassessed. Patient is alert, oriented x 3, equal unlabored respirations, skin warm/dry/pink. Vital Signs: 19:17 BP 178 / 87; Pulse 71; Resp 18; Temp 98.3(TE); Pulse Ox 96% ; Weight 102.06 kg (R); Height 6 ft. 1 in. ; Pain 9/10; 21:30 BP 164 / 81; Pulse 70; Resp 16; Pulse Ox 99% on R/A; jb4 22:30 BP 165 / 89; Pulse 62; Resp 16; Pulse Ox 99% on R/A; jb4 23:30 BP 178 / 93; Pulse 62; Resp 16; Pulse Ox 99% on R/A; jb4 19:17 Body Mass Index 29.68 (102.06 kg, 185.42 cm) 19:17 Pain Scale: Adult kl ED Course: 18:30 Patient arrived in ED. am2 18:30 Mary Alberto FNP-C is Private Physician. am2 19:19 Triage completed. kl 20:02 Clint Galindo MD is Attending Physician. sp4 20:35 Edin Milner, RN is Primary Nurse. jb4 20:45 First set of blood cultures drawn by me, Second set of blood cultures drawn by me. ds4 20:49 Inserted saline lock: 20 gauge in left forearm, using aseptic technique. Blood ds4 collected. 21:19 Foot Right 3 View XRAY In Process Unspecified. EDMS 22:35 Extremity Venous Uni Ltd US In Process Unspecified. EDMS 01/31 00:18 Yash Crockett is Hospitalizing Provider. sp4 Administered Medications: 01/30 20:51 Drug: New Freedom PO 10 mg-325 mg 1 tabs Route: PO; jb4 21:00 Drug: Ondansetron IVP 4 mg Route: IVP; Site: left forearm; jb4 21:00 Drug: Piperacillin-Tazobactam IVPB 3.375 grams Route: IVPB; Infused Over: 60 mins; jb4 Site: left forearm; 22:58 Drug: vancoMYCIN IVPB 1 grams Route: IVPB; Infused Over: 2 hrs; Site: left antecubital; jb4 23:28 Drug: Potassium Chloride IV 20 mEq Route: IV; Rate: calculated rate; Site: right jb4 forearm; 23:29 Drug: Potassium Chloride PO 40 mEq Route: PO; jb4 23:29 Drug: NS 0.9% IV 250 ml Route: IV; Rate: 125 ml/hr; Site: right forearm; jb4 01/31 00:22 Drug: New Freedom PO 10 mg-325 mg 1 tabs Route: PO; jb4 Outcome: 00:19 Decision to Hospitalize by Provider. sp4 13:26 Patient left the ED. iw Signatures: Dispatcher [employer] EDMS Pratima Smith RN RN kl Williams, Irene, RN RN iw Swanson, Donovan ds4 Edin Milner RN RN jb4 Alfreda Moss am2 Clint Galindo MD MD sp4 Corrections: (The following items were deleted from the chart) 01/30 19:21 19:19 PSHx: None; kl kl
[2023-01-31] MEDS ORDERED: HYDROCODONE/APAP 10/325 TAB ONE (00:29)
--- NOTE | 2023-01-31 01:18 | P.HP ---
Certification for Inpatient Patient admitted to: Inpatient With expected LOS: >2 Midnights Patient will require the following post-hospital care: None Practitioner: I am a practitioner with admitting privileges, knowledge of patient current condition, hospital course, and medical plan of care. Services: Services provided to patient in accordance with Admission requirements found in Title 42 Section 412.3 of the Code of Federal Regulations <SaritahamLarry Estevez - Last Filed: 01/31/23 01:15> Patient History Date of Service: 01/31/23 Reason for admission: RLE cellulitis History of Present Illness: 67-year-old male with history of insulin-dependent diabetes, hypertension, hyperlipidemia, GERD, angioedema presents to the emergency department chief complaint of right lower extremity pain and swelling. He reports that approximately 3 days ago he noticed a ulcer developing on the plantar aspect of his right great toe and since then increased swelling, erythema in the area as well as pain. He is evaluated in the emergency department his labs are significant for white blood cell count 11.8 potassium 2.8 which was replaced in the emergency department. Ultrasound is negative for DVT x-ray shows no fractures or soft tissue gas. ED provider wishes to admit patient for diabetic ulceration/cellulitis right lower extremity. 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 - Family History Brother -: Hypertension, Diabetes Mother -: Hypertension - Social History Alcohol use: No CD- Drugs: No Caffeine use: Yes Place of Residence: Home <Larry Estrella - Last Filed: 01/31/23 01:15> Date of Service: 01/31/23 <Chapo Palacios - Last Filed: 01/31/23 18:21> Allergies lisinopril Allergy (Severe, Verified 12/14/20 11:42) Anaphylaxis NSAIDS (Non-Steroidal Anti-Inflamma Allergy (Severe, Verified 12/14/20 11:42) Anaphylaxis valsartan [From Diovan HCT] Allergy (Intermediate, Verified 12/14/20 11:42) SWELLING OF TONGUE carvedilol [From Coreg] Allergy (Verified 12/14/20 11:42) Anaphylaxis nebivolol HCl [From Bystolic] Allergy (Verified 12/14/20 11:42) Shortness of breath cephalexin [From Keflex] Adverse Reaction (Verified 12/14/20 11:42) Anaphylaxis ACES Allergy (Uncoded 12/14/20 11:42) Unknown Home Medications: Esomeprazole Magnesium [Nexium] 40 mg PO DAILY 07/29/16 Glipizide [Glipizide ER] 10 mg PO DAILY 07/29/16 Metformin ER [Glucophage ER*] 1,000 mg PO BID 07/29/16 Hydralazine HCl [Apresoline] 100 mg PO TID 10/03/18 Pravastatin Sodium [Pravachol] 40 mg PO BEDTIME 10/12/18 hydrOXYzine pamoate [Hydroxyzine Pamoate] 25 mg PO TIDP PRN 10/12/18 Metformin HCl [Glucophage*] 500 mg PO LUNCH 12/14/20 Nifedipine Xl [Procardia XL*] 90 mg PO DAILY 12/14/20 Pregabalin 200 mg PO TID 12/14/20 Hydrocodone 5/APAP 325 [[place] 5/325*] 1 tab PO Q4H PRN tab 12/18/20 predniSONE [Prednisone*] 10 mg PO DAILY #5 tab 05/18/22 Review of Systems 10-point ROS is otherwise unremarkable Musculoskeletal: Foot Pain Integumentary: As per HPI <Larry Estrella Herb - Last Filed: 01/31/23 01:15> Physical Examination - Physical Exam General: Alert, In no apparent distress (The), Oriented x3 HEENT: Atraumatic, PERRLA, Mucous membr. moist/pink, EOMI, Sclerae nonicteric Neck: Supple, 2+ carotid pulse no bruit, No LAD, Without JVD or thyroid abnormality Respiratory: Clear to auscultation bilaterally, Normal air movement Cardiovascular: Regular rate/rhythm, Normal S1 S2 Capillary refill: <2 Seconds Gastrointestinal: Normal bowel sounds, No tenderness Musculoskeletal: No tenderness Integumentary: Tenderness/swelling, Erythema, Warmth, Diabetic ulcer (Plantar aspect right great toe) Neurological: Normal speech, Normal strength at 5/5 x4 extr, Normal tone, Normal affect Lymphatics: No axilla or inguinal lymphadenopathy - Studies Laboratory Data (last 24 hrs) 01/30/23 20:45: PT 10.2, INR 0.93 01/30/23 20:45: WBC 11.80 H, Hgb 12.6 L, Hct 38.4 L, Plt Count 276 01/30/23 20:45: Sodium 138, Potassium 2.8 L, BUN 8, Creatinine 0.84, Glucose 186 H, Magnesium 2.2, Total Bilirubin 0.2, AST 13 L, ALT 24, Alkaline Phosphatase 65 <Larry Estrella - Last Filed: 01/31/23 01:15> - Studies Laboratory Data (last 24 hrs) 01/30/23 20:45: PT 10.2, INR 0.93 01/30/23 20:45: WBC 11.80 H, Hgb 12.6 L, Hct 38.4 L, Plt Count 276 01/30/23 20:45: Sodium 138, Potassium 2.8 L, BUN 8, Creatinine 0.84, Glucose 186 H, Magnesium 2.2, Total Bilirubin 0.2, AST 13 L, ALT 24, Alkaline Phosphatase 6 5 Microbiology Data (last 24 hrs): 01/30/23 20:45 Blood - Blood Anaerobic Blood Culture - Final <Chapo Palacois - Last Filed: 01/31/23 18:21> Assessment and Plan - Plan Assessment: Diabetic ulceration with surrounding cellulitis right lower extremity/right great toe Hypokalemia Diabetes mellitus type 2insulin-dependent Hypertension Hyperlipidemia GERD Plan: Diabetic ulceration with surrounding cellulitis right lower extremity/right great toe Blood cultures obtained, will obtain wound culture. Continue antibiotics vancomycin/cefepime, general surgery consult to evaluate ulceration. X-ray negative for signs of osteomyelitis. Hypokalemia Replaced in ED, protocol in place. Diabetes mellitus type 2insulin-dependent ACHS Accu-Chek, sliding scale insulin, A1c in the morning. Hypertension Hyperlipidemia GERD Continue home medications. DVT PPX: Lovenox Code status: Full Discharge Plan: Home Plan to discharge in: Greater than 2 days - Advance Directives Does patient have a Living Will: No Does patient have a Durable POA for Healthcare: No - Code Status/Comfort Care Code Status Assessed: Yes (Full code) Critical Care: No Time Spent Managing Pts Care (In Minutes): 55 <Attema,Larry A Herb - Last Filed: 01/31/23 01:15> - Plan Seen and examined on rounds this morning. minimal discomfort currently feeling ok, no headache, no vision changes continue antibiotics general surgery consulted IDDM2 with neuropathy BP remains high, patient states, it's always higher when in hospital monitor closely, adjust as needed multiple allergies h/o angioedema from ACEI <Chapo Palacios - Last Filed: 01/31/23 18:21>
[2023-01-31] MEDS ORDERED: ONDANSETRON 4 MG/2 ML VIAL IV PRN (01:49)
[2023-01-31 02:11] LABS: Absolute Lymphocytes (CBC) 2.4 K/uL (0.7-4.9); Hematocrit 35.1 % (39.6-49.0); Lymphocytes % 24.5 % (15.3-44.8); MPV 8.1 fL (7.6-11.3); RBC Red Blood Cell Count 4.03 M/uL (4.33-5.43)
[2023-01-31 02:27] LABS: Magnesium 2.1 mg/dL (1.6-2.4); Potassium 3.4 mEq/L (3.5-5.1)
[2023-01-31] MEDS ORDERED: VANCOMYCIN 750 MG in NA CHLORIDE 0.9% 250 ML IVPB ONE (04:00)
[2023-01-31] MEDS ORDERED: VANCOMYCIN 1 GM/VIAL ONE (04:25)
[2023-01-31] MEDS ORDERED: NA CHLORIDE 0.9% 250 ML ONE ×2 (04:26→10:19)
[2023-01-31 05:29] VITALS: BMI 29.7
--- NOTE | 2023-01-31 07:24 | P.PN ---
Date of Service: 02/01/23 Subjective: feeling better today wanting to restart his home steroids per nurse, will restart swelling improving, +less tender, +improved erythema afebrile ROS: 10 point ROS as noted above, otherwise negative Physical Exam: GEN: Alert, oriented, NAD HEENT: Normal conjunctiva, sclera anicteric CV: Regular rate and rhythm, no edema Pulm: Nonlabored respirations on room air Integumentary: Diabetic ulcer R great toe, superficial layer, dressing in place c/d/i Neuro: Normal speech, normal affect vitals reviewed Problem List: Diabetic ulceration with surrounding cellulitis right lower extremity/right great toe Hypokalemia IDDM2 with neuropathy Hypertension Hyperlipidemia GERD Diabetic ulceration with surrounding cellulitis right lower extremity/right great toe Blood cultures: NGTD Continue vancomycin/cefepime(01/31-) general surgery consult continue abx, no further surgical intervention needed keep legs elevated in bed X-ray negative for signs of osteomyelitis. PRN paid meds Hypokalemia Replaced in ED, protocol in place. IDDM2 with neuropathy ACHS Accu-Chek, sliding scale insulin A1c: 6.6 Hypertension Hyperlipidemia GERD Continue home medications. HCTZ VTE: Lovenox Code: Full Dispo: Home , ~1-2 days
[2023-01-31] MEDS: INSULIN -REGULAR HUMAN 50 UNIT/0.5 ML ML SQ SCH ×4 (07:30→20:56)
[2023-01-31] MEDS: HYDRALAZINE HCL 25 MG TABLET PO SCH ×3 (09:00→20:49)
[2023-01-31] MEDS: ENOXAPARIN 40 MG/0.4 ML SQ SCH (09:00)
[2023-01-31] MEDS ORDERED: VANCOMYCIN 1 GM in NA CHLORIDE 0.9% 250 ML IVPB SCH (09:00)
[2023-01-31] MEDS: CEFEPIME 1 GM in NA CHLORIDE 0.9% 100 ML IV SCH ×2 (09:00→20:49)
[2023-01-31] MEDS: NIFEDIPINE XL 90 MG TABLET PO SCH (09:00)
[2023-01-31] MEDS ORDERED: HYDRALAZINE HCL 10 MG TABLET ONE (09:54)
[2023-01-31] MEDS ORDERED: ENOXAPARIN 40 MG/0.4 ML SQ ONE (09:54)
[2023-01-31] MEDS ORDERED: NA CHLORIDE 0.9% 100 ML ONE (09:55)
[2023-01-31] MEDS ORDERED: CEFEPIME 1 GM/VIAL ONE (09:55)
[2023-01-31] MEDS ORDERED: INSULIN -REGULAR HUMAN 50 UNIT/0.5 ML ML ONE (09:56)
[2023-01-31] MEDS ORDERED: IPRATROPIUM BROM 0.5MG/2.5ML ONE (10:19)
[2023-01-31] MEDS ORDERED: FAMOTIDINE 20 MG/2 ML VIAL IV ONE (10:19)
[2023-01-31] MEDS ORDERED: CEFTRIAXONE 1000 MG/VIAL ONE (10:19)
[2023-01-31] MEDS ORDERED: LEVALBUTEROL 1.25 MG/3 ML NEB ONE (10:19)
[2023-01-31] MEDS ORDERED: AZITHROMYCIN 500 MG INJ IVPB ONE (10:19)
[2023-01-31] MEDS ORDERED: NA CHLORIDE 0.9% 50 ML ONE (10:20)
[2023-01-31] MEDS ORDERED: BACI/NEOMYCIN/POLY OINT 15GM TOP ONE (10:53)
--- NOTE | 2023-01-31 11:24 | CON ---
Date of Consultation: 01/31/2023 Reason For Consultation: Right foot wound. History Of Present Illness: Patient is a 67-year-old gentleman with diabetes, insulin dependent, and other medical problems that presented to the emergency room with 3-day history of an ulcer on the [facility] plantar aspect of the great toe associated with redness, swelling, pain. No purulent discharge. Patient had some necrotic tissue there that was debrided by the ER physician. There was no purulent discharge present. There were no cultures done. He denies any sore throat, runny nose, cough, head aches, or dizziness. No chest pain. No fevers or chills. Review of Systems: Otherwise, unremarkable. Past Medical History: Significant for hypertension, hyperlipidemia, type 2 diabetes, diabetic neurop athy, gastroparesis, GERD, tobacco and alcohol use. Past Surgical History: Significant for tracheostomy, cholecystectomy, and appendectomy. Allergies: INCLUDES LISINOPRIL, NSAIDS, VALSARTAN, CARVEDILOL, NEBIVOLOL, CEPHALEXIN, AND TIERRA ALLERG IES. Social History: Per past medical history. Physical Examination: Vital Signs: Stable. He is currently afebrile. General: He is awake, alert, and oriented x3. Head and Neck: Cranial nerves 2 through 12 are grossly within normal limits. No neck masses. No JV D. Throat clear. Neck is supple. Chest: Clear. Heart: S1 and S2. Abdomen: Soft. Extremity: Neurovascularly intact. However, there is diminished sensation on the plantar aspect of the foot. Right leg below the knee is edematous. There is a scratch on the anterior middle leg whic h appears to be scabbed over. There is edema, erythema, and warmth present all the way to the foot, and the great toe does have a partial-thickness wound on the plantar aspect approximately 3 x 2 cm. There is no fluctuance or induration present to indicate deep soft tissue abscess. X-ray does not show any sign of gas or any sign of osteomyelitis. Laboratory Data: Initially a slight leukocytosis which has improved today. Chemistry reviewed. Pat callient's A1c is 6.6. Potassium was low and it is being replaced. Patient had an extremity venous stud y which does not show any evidence of DVT. Assessment: Right leg cellulitis with a diabetic ulcer grade 1 on the right great toe. Recommendations: Admit. IV antibiotics. Elevation. Mupirocin to the wound daily. Patient can fol [facility] upon discharge. If he is not improved, MRI of the foot may be ind icated to rule out osteomyelitis. At this time, there is no clinical sign indicating such progressio n of his disease. We will follow the patient while in the hospital. KULWANT/OPAL Voice ID: [id number] Report ID: [id number]
[2023-01-31] MEDS: HYDROCODONE/APAP 7.5/325 MG TAB PO PRN (13:36)
[2023-01-31] MEDS: VANCOMYCIN 1.75 GM in NA CHLORIDE 0.9% 500 ML IVPB SCH (15:23)
[2023-01-31] MEDS: hydroCHLOROthiazide 25 MG TAB PO SCH (17:16)
[2023-01-31] MEDS: ATORVASTATIN 10 MG TAB PO SCH (20:49)
[2023-02-01] MEDS: VANCOMYCIN 1.75 GM in NA CHLORIDE 0.9% 500 ML IVPB SCH ×2 (01:45→14:22)
[2023-02-01 07:50] LABS: Absolute Lymphocytes (CBC) 1.4 K/uL (0.7-4.9); Hematocrit 38.6 % (39.6-49.0); Lymphocytes % 20.3 % (15.3-44.8); MCV 86.9 fL (80-100); MPV 8.5 fL (7.6-11.3); RBC Red Blood Cell Count 4.44 M/uL (4.33-5.43)
[2023-02-01 08:07] LABS: Magnesium 2.1 mg/dL (1.6-2.4); Potassium 3.7 mEq/L (3.5-5.1)
[2023-02-01] MEDS: hydroCHLOROthiazide 25 MG TAB PO SCH (08:10)
[2023-02-01] MEDS: HYDRALAZINE HCL 25 MG TABLET PO SCH ×3 (08:10→20:48)
[2023-02-01] MEDS: ENOXAPARIN 40 MG/0.4 ML SQ SCH (08:10)
[2023-02-01] MEDS: NIFEDIPINE XL 90 MG TABLET PO SCH (08:11)
[2023-02-01] MEDS: INSULIN -REGULAR HUMAN 50 UNIT/0.5 ML ML SQ SCH ×4 (08:11→20:50)
[2023-02-01] MEDS: CEFEPIME 1 GM in NA CHLORIDE 0.9% 100 ML IV SCH ×2 (08:12→20:48)
[2023-02-01] MEDS: HYDROCODONE/APAP 7.5/325 MG TAB PO PRN ×2 (08:56→20:47)
--- NOTE | 2023-02-01 09:22 | PN ---
Date of Progress Note: 02/01/2023 Subjective: The patient is awake, alert. No complaints. Please note, the patient states that the p ain and swelling are improved. Blood pressure is a little high however. Objective: Vital Signs: Stable. The patient is afebrile. Extremities: Examination of the right leg reveals a slightly decreased edema. His minimal erythema and tenderness have decreased as well. Dressing is clean, dry, intact on the partial thickness wound on the plantar aspect of the right great toe. Laboratory Data: Shows white count to be normal. There is no left shift. Assessment: Cellulitis, right lower extremity with grade 1 diabetic wound on his right great toe. Recommendations: Would be at this time I believe another day 24-48 hours of IV antibiotics would be necessary for this patient with multiple comorbidities. There is no need for any surgical interventi on. Continue bedrest and elevation. He can ambulate little more today, but when in bed, please elev ate the leg. /MODL Voice ID: [id number] Report ID: [id number]
[2023-02-01] MEDS: MUPIROCIN 2% OINT 22GM TUBE TOP SCH (11:52)
--- NOTE | 2023-02-01 14:24 | EKG ---
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
[2023-02-01] MEDS: ATORVASTATIN 10 MG TAB PO SCH (20:48)
[2023-02-02 00:45] VITALS: O2SAT 98
[2023-02-02] MEDS: VANCOMYCIN 2 GM in NA CHLORIDE 0.9% 500 ML IVPB SCH ×2 (01:55→14:01)
[2023-02-02 03:55] LABS: Absolute Lymphocytes (CBC) 1.3 K/uL (0.7-4.9); Lymphocytes % 15.6 % (15.3-44.8); MCV 87.5 fL (80-100); MPV 8.7 fL (7.6-11.3); RBC Red Blood Cell Count 4.45 M/uL (4.33-5.43)
[2023-02-02 04:13] LABS: Magnesium 2.2 mg/dL (1.6-2.4); Potassium 4.3 mEq/L (3.5-5.1)
--- NOTE | 2023-02-02 07:12 | P.PN ---
Date of Service: 02/02/23 Subjective: doing okay right foot / lower leg, remains swollen, improving pain at great toe, concerned about healing / going home afebrile ROS: 10 point ROS as noted above, otherwise negative Physical Exam: GEN: Alert, oriented, NAD HEENT: Normal conjunctiva, sclera anicteric CV: Regular rate and rhythm, no edema Pulm: Nonlabored respirations on room air Integumentary: Diabetic ulcer R great toe, superficial layer, dressing in place c/d/i Neuro: Normal speech, normal affect vitals reviewed Problem List: Diabetic ulceration with surrounding cellulitis right lower extremity/right great toe Hypokalemia IDDM2 with neuropathy Hypertension Hyperlipidemia GERD Diabetic ulceration with surrounding cellulitis right lower extremity/right great toe Blood cultures: NGTD Continue vancomycin/cefepime(01/31-) general surgery consult continue abx, no further surgical intervention needed keep legs elevated in bed daily dressing changes X-ray negative for signs of osteomyelitis. PRN paid meds improving Hypokalemia Replaced in ED, protocol in place. IDDM2 with neuropathy ACHS Accu-Chek, sliding scale insulin A1c: 6.6 Hypertension Hyperlipidemia GERD Continue home medications. HCTZ VTE: Lovenox Code: Full Dispo: Home , ~1 day
[2023-02-02] MEDS: ENOXAPARIN 40 MG/0.4 ML SQ SCH (08:43)
[2023-02-02] MEDS: CEFEPIME 1 GM in NA CHLORIDE 0.9% 100 ML IV SCH ×2 (08:43→21:05)
[2023-02-02] MEDS: INSULIN -REGULAR HUMAN 50 UNIT/0.5 ML ML SQ SCH ×4 (08:43→21:06)
[2023-02-02] MEDS: HYDROCODONE/APAP 7.5/325 MG TAB PO PRN ×2 (08:43→21:04)
[2023-02-02] MEDS: HYDRALAZINE HCL 25 MG TABLET PO SCH ×3 (08:44→21:05)
[2023-02-02] MEDS: predniSONE 10 MG TAB PO SCH (08:44)
[2023-02-02] MEDS: hydroCHLOROthiazide 25 MG TAB PO SCH (08:44)
[2023-02-02] MEDS: NIFEDIPINE XL 90 MG TABLET PO SCH (08:44)
[2023-02-02] MEDS: MUPIROCIN 2% OINT 22GM TUBE TOP SCH (08:45)
--- NOTE | 2023-02-02 09:04 | P.DS ---
Admission Date: 01/31/23 Discharge Date: 02/02/23 Reason for Admission: RLE cellulitis Consultations: General surgery - Dr. Sapp Brief History of Present Illness: 67 yo M, PMH: insulin-dependent diabetes, hypertension, hyperlipidemia, GERD, angioedema Patient presents to the emergency department chief complaint of right lower extremity pain and swelling. He reports that approximately 3 days ago he noticed a ulcer developing on the plantar aspect of his right great toe and since then increased swelling, erythema in the area as well as pain. He is evaluated in the emergency department his labs are significant for white blood cell count 11.8 potassium 2.8 which was replaced in the emergency department. Ultrasound is negative for DVT x-ray shows no fractures or soft tissue gas. Hospital Course: Problem List: Diabetic ulceration with surrounding cellulitis right lower extremity/right great toe Hypokalemia IDDM2 with neuropathy Hypertension Hyperlipidemia GERD Physical Exam: GEN: Alert, oriented, NAD HEENT: Normal conjunctiva, sclera anicteric CV: Regular rate and rhythm, no edema Pulm: Nonlabored respirations on room air Integumentary: Diabetic ulcer R great toe, superficial layer, dressing in place c/d/i Neuro: Normal speech, normal affect Vital Signs/Physical Exam: Temp Pulse Resp BP Pulse Ox 97.8 F 66 16 175/89 H 97 02/02/23 08:00 02/02/23 08:00 02/02/23 08:00 02/02/23 08:00 02/02/23 08:00 Laboratory Data at Discharge: WBC 8.30 thou/uL (4.3-10.9) 02/02/23 03:01 Hgb 12.9 g/dL (13.6-17.9) L 02/02/23 03:01 Hct 39.0 % (39.6-49.0) L 02/02/23 03:01 Plt Count 279 thou/uL (152-406) 02/02/23 03:01 PT 10.2 SECONDS (9.5-12.5) 01/30/23 20:45 INR 0.93 01/30/23 20:45 Sodium 139 mEq/L (136-145) 02/02/23 03:01 Potassium 4.3 mEq/L (3.5-5.1) D 02/02/23 03:01 BUN 8 mg/dL (7-18) 02/02/23 03:01 Creatinine 0.74 mg/dL (0.70-1.30) 02/02/23 03:01 Glucose 251 mg/dL (74-106) H 02/02/23 03:01 Magnesium 2.2 mg/dL (1.6-2.4) 02/02/23 03:01 Total Bilirubin 0.2 mg/dL (0.2-1.0) 01/30/23 20:45 AST 13 U/L (15-37) L 01/30/23 20:45 ALT 24 U/L (16-61) 01/30/23 20:45 Alkaline Phosphatase 65 U/L (45-117) 01/30/23 20:45 Home Medications: RX: Esomeprazole Magnesium [Nexium] 40 mg PO DAILY 07/29/16 RX: Glipizide [Glipizide ER] 10 mg PO DAILY 07/29/16 RX: Metformin ER [Glucophage ER*] 1,000 mg PO BID 07/29/16 RX: Hydralazine HCl [Apresoline] 100 mg PO TID 10/03/18 RX: Pravastatin Sodium [Pravachol] 40 mg PO BEDTIME 10/12/18 RX: hydrOXYzine pamoate [Hydroxyzine Pamoate] 25 mg PO TIDP PRN 10/12/18 RX: Metformin HCl [Glucophage*] 500 mg PO LUNCH 12/14/20 RX: Nifedipine Xl [Procardia XL*] 90 mg PO DAILY 12/14/20 RX: Pregabalin 200 mg PO TID 12/14/20 RX: Hydrocodone 5/APAP 325 [[place] 5/325*] 1 tab PO Q4H PRN tab 12/18/20 RX: predniSONE [Prednisone*] 10 mg PO DAILY #5 tab 05/18/22 Followup: Mary Alberto NP [Primary Care Provider] -
[2023-02-02] MEDS: ATORVASTATIN 10 MG TAB PO SCH (21:05)
[2023-02-02] MEDS ORDERED: cloNIDine HCL 0.1 MG TAB PO ONE (23:59)
[2023-02-03] MEDS: VANCOMYCIN 2 GM in NA CHLORIDE 0.9% 500 ML IVPB SCH (01:23)
[2023-02-03 08:46] VITALS: BP 173/79; TEMP 97.2
[2023-02-03] MEDS: NIFEDIPINE XL 90 MG TABLET PO SCH (08:59)
[2023-02-03] MEDS: HYDRALAZINE HCL 25 MG TABLET PO SCH (08:59)
[2023-02-03] MEDS: predniSONE 10 MG TAB PO SCH (08:59)
[2023-02-03] MEDS: hydroCHLOROthiazide 25 MG TAB PO SCH (08:59)
[2023-02-03] MEDS: ENOXAPARIN 40 MG/0.4 ML SQ SCH (09:00)
[2023-02-03] MEDS: MUPIROCIN 2% OINT 22GM TUBE TOP SCH (09:00)
[2023-02-03] MEDS: INSULIN -REGULAR HUMAN 50 UNIT/0.5 ML ML SQ SCH ×2 (09:00→11:30)
[2023-02-03] MEDS: CEFEPIME 1 GM in NA CHLORIDE 0.9% 100 ML IV SCH (09:01)
[2023-02-03] MEDS: HYDROCODONE/APAP 7.5/325 MG TAB PO PRN (09:03)
--- NOTE | 2023-02-03 12:09 | P.DS ---
Admission Date: 01/31/23 Discharge Date: 02/03/23 Disposition: ROUTINE DISCHARGE Reason for Admission: RLE cellulitis Consultations: General surgeryDr. Sapp Brief History of Present Illness: 67-year-old male with history of insulin-dependent diabetes, hypertension, hyperlipidemia, GERD, angioedema presents to the emergency department chief complaint of right lower extremity pain and swelling. He reported that approximately 3 days ago he noticed a ulcer developing on the plantar aspect of his right great toe and since then increased swelling, erythema in the area as well as pain. He was evaluated in the emergency department and his labs were significant for white blood cell count 11.8 potassium 2.8 which was replaced in the emergency department. Ultrasound is negative for DVT x-ray shows no fractures or soft tissue gas. Patient admitted for diabetic ulceration with cellulitis right lower extremity. Hospital Course: Diagnosis Diabetic ulceration with surrounding cellulitis right lower extremity/right great toe Hypokalemia IDDM2 with neuropathy Hypertension Hyperlipidemia GERD Diabetic ulceration with surrounding cellulitis right lower extremity/right great toe Blood cultures: NGTD Patient treated with vancomycin/cefepime(01/31-02/03)) general surgery Dr. Sapp consulted who recommend antibiotics and no further surgical intervention needed X-ray negative for signs of osteomyelitis. Patient discharged with oral Cipro and doxycycline for suspected infected toe ulcer. Hypokalemia Replaced in ED, protocol in place. IDDM2 with neuropathy Managed with ACHS Accu-Chek, sliding scale insulin A1c: 6.6 Hypertension Hyperlipidemia GERD Continued home medications. HCTZ added for better blood pressure control. Vital Signs/Physical Exam: Temp Pulse Resp BP Pulse Ox 97.2 F 67 16 173/79 H 99 02/03/23 08:00 02/03/23 08:00 02/03/23 08:00 02/03/23 08:00 02/03/23 08:00 General: Alert, In no apparent distress, Oriented x3 HEENT: Mucous membr. moist/pink Neck: JVD not distended Respiratory: Clear to auscultation bilaterally, Normal air movement Cardiovascular: No edema, Regular rate/rhythm, Normal S1 S2 Gastrointestinal: Soft and benign, Non-distended Musculoskeletal: No swelling Integumentary: Diabetic ulcer (Right great toe.) Neurological: Normal speech, Normal strength at 5/5 x4 extr Laboratory Data at Discharge: WBC 8.30 thou/uL (4.3-10.9) 02/02/23 03:01 Hgb 12.9 g/dL (13.6-17.9) L 02/02/23 03:01 Hct 39.0 % (39.6-49.0) L 02/02/23 03:01 Plt Count 279 thou/uL (152-406) 02/02/23 03:01 PT 10.2 SECONDS (9.5-12.5) 01/30/23 20:45 INR 0.93 01/30/23 20:45 Sodium 139 mEq/L (136-145) 02/02/23 03:01 Potassium 4.3 mEq/L (3.5-5.1) D 02/02/23 03:01 BUN 8 mg/dL (7-18) 02/02/23 03:01 Creatinine 0.74 mg/dL (0.70-1.30) 02/02/23 03:01 Glucose 251 mg/dL (74-106) H 02/02/23 03:01 Magnesium 2.2 mg/dL (1.6-2.4) 02/02/23 03:01 Total Bilirubin 0.2 mg/dL (0.2-1.0) 01/30/23 20:45 AST 13 U/L (15-37) L 01/30/23 20:45 ALT 24 U/L (16-61) 01/30/23 20:45 Alkaline Phosphatase 65 U/L (45-117) 01/30/23 20:45 Home Medications: Esomeprazole Magnesium [Nexium] 40 mg PO DAILY 07/29/16 Glipizide [Glipizide ER] 10 mg PO DAILY 07/29/16 Metformin ER [Glucophage ER*] 1,000 mg PO BID 07/29/16 Hydralazine HCl [Apresoline] 100 mg PO TID 10/03/18 Pravastatin Sodium [Pravachol] 40 mg PO BEDTIME 10/12/18 hydrOXYzine pamoate [Hydroxyzine Pamoate] 25 mg PO TIDP PRN 10/12/18 Metformin HCl [Glucophage*] 500 mg PO LUNCH 12/14/20 Nifedipine Xl [Procardia XL*] 90 mg PO DAILY 12/14/20 Pregabalin 200 mg PO TID 12/14/20 Hydrocodone 5/APAP 325 [[place] 5/325*] 1 tab PO Q4H PRN tab 12/18/20 predniSONE [Prednisone*] 10 mg PO DAILY #5 tab 05/18/22 Ciprofloxacin HCl [Cipro] 500 mg PO BID #14 tab 02/03/23 Doxycycline Hyclate 100 mg PO BID #14 cap 02/03/23 Mupirocin Oint [Bactroban 2% Ointment*] 1 appl TOP DAILY #1 tube 02/03/23 hydroCHLOROthiazide [Hydrodiuril*] 25 mg PO DAILY #30 tab 02/03/23 New Medications: Mupirocin Oint [Bactroban 2% Ointment*] 1 appl TOP DAILY #1 tube Ciprofloxacin HCl [Cipro] 500 mg PO BID #14 tab Doxycycline Hyclate 100 mg PO BID #14 cap hydroCHLOROthiazide [Hydrodiuril*] 25 mg PO DAILY #30 tab Physician Discharge Instructions: Patient presented with right lower extremity pain and swelling. He was found to have a diabetic ulceration with surrounding cellulitis of the right great toe. General surgery was consulted. No surgical intervention / further testing was warranted at this time. Patient was treated with IV vancomycin and cefepime. Patient remained afebrile, swelling improved, and was deemed stable for discharge. Blood cultures were without growth however final results pending upon discharge. Recommend patient to keep legs elevated and no weight-bearing on the right great toe until given green light by General Surgery (Dr. Sapp). Daily dressing changes New / change in Prescriptions continue home medications as previously prescribed Folow up: PCP 3-5 days General surgery - Dr. Sapp Followup: Mary Alberto [employer] [Primary Care Provider] - Time spent managing pt's care (in minutes): 33
== END 2023-02-03 12:50 | disposition home or self-care (01) | DRG 638 ==
LOC: ER 18:28 → ERHOLD 01-31 00:36 → 2ND 01-31 13:15
PROVIDERS: ADMIT Hospitalist; ATTEND Internal Medicine
DX: E11.628 Type 2 diabetes mellitus with other skin complications (principal); L03.115 Cellulitis of right lower limb; E11.621 Type 2 diabetes mellitus with foot ulcer; L97.519 Non-pressure chronic ulcer of other part of right foot with unspecified severity; E11.40 Type 2 diabetes mellitus with diabetic neuropathy, unspecified; I10 Essential (primary) hypertension; E87.6 Hypokalemia; M19.90 Unspecified osteoarthritis, unspecified site; E78.00 Pure hypercholesterolemia, unspecified; K21.9 Gastro-esophageal reflux disease without esophagitis; F17.210 Nicotine dependence, cigarettes, uncomplicated; Z88.1 Allergy status to other antibiotic agents; Z93.0 Tracheostomy status; Z88.8 Allergy status to other drugs, medicaments and biological substances; Z79.84 Long term (current) use of oral hypoglycemic drugs; Z79.52 Long term (current) use of systemic steroids; Z90.49 Acquired absence of other specified parts of digestive tract; Z79.899 Other long term (current) drug therapy
CPT/HCPCS: 36415; 80048; 80076; 80202; 82947; 83036; 83735; 83880; 84484; 85025; 85610; 87040; 93005; 93971; 99284; J0692; J0696; J1650; J1815; J2405; J2543; J3480; J7040; J7050; J7512; J7614; J7644

== ENCOUNTER 2023-04-12 14:00 | Emergency (ER) | payer OTHER ==
--- OUTSIDE RECORDS SUMMARY | 2023-04-12 14:06 | XMS REPORT | Continuity of Care Document ---
:1955 Author Organization [facility] t Address [address] [facility] [address] [place] [address] Care Team Providers Name Role Phone Mary Alberto Attending Clinician Unavailable Payers Payer Name Policy Type Policy Number Effective Date Expiration Date S [facility] 111 [id number] 2022 Common S pirit Advantage HMO 00:00:00 - [facility] Problems Condition Condition Condition Status Onset Resolution Last Treating Co mments Source Name Details Category Date Date Treatment Clinician Date [id number] Detrusor Problem Comm on instabilit Spirit y [facility] [id number] Urge Problem Common incontinen [facility] [id number] BMI Problem Common 28.0-28.9, [facility] adult [facility] [id number] Diarrhea, Problem Comm on functional [facility] [id number] Primary Problem Common insomnia [facility] [id number] Lumbar Problem Common back pain [facility] with [facility] radiculopa [facility] lower [place] extremity [id number] Right Problem Common upper [facility] quadrant [facility] abdominal [facility] Seasonal Seasonal Problem Commo n allergic allergic [facility] rhinitis reaction [facility] Peripheral Peripheral Problem C ommon neuropathy neuropathy Sp iveth [facility] Disturbanc Disturbanc Problem C ommon e of skin e of skin Spir it sensation sensation - I [facility] Angioedema Angioedema Problem C ommon [facility] Hypertensi Hypertensi Problem C ommon on on Spirit - [facility] [id number] Wound of Problem Comm on skin [facility] [id number] S/P TURP Problem Comm on (status Spirit post - [facility] transureth [facility] resection Medical [facility] Center prostate) [id number] Dysuria Problem Common [facility] [id number] Type 2 Problem Common diabetes [facility] mellitus - [facility] with other [facility] y Medical complicati Center ons [id number] Other Problem Common postherpet Spirit ic nervous - [facility] system [facility] [id number] Hospital Problem Comm on discharge Spirit follow-up [facility] 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 Sp iveth [facility] [id number] Diarrhea Problem Commo n of Spirit presumed - [facility] infectious [facility] [id number] Acquired Problem Comm on anal [facility] stenosis [facility] [id number] Lower Problem Common urinary [facility] tract - [facility] symptoms ([facility] [id number] BPH loc w Problem Com mon urin Spirit obs/LUTS - [facility] 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 - C HI a hyperplasi [facility] [id number] Prostatiti Problem Com mon s, acute [facility] [id number] ED Problem Common (erectile Spirit dysfunctio - [facility]) of [facility] Routine Routine Problem Common eye exam eye exam [facility] [id number] skilled nursing Problem Com mon current Spirit use of - [facility] insulin [facility] Overactive OAB Problem Commo n bladder (overactiv Spiri t e bladder) [facility] Impotence 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 - [facility] n) [facility] [id number] Urethritis Problem Com mon Spirit [facility] [id number] Incomplete Problem Co mmon emptying Spirit of bladder - [facility] Allergies, Adverse Reactions, Alerts Allergy Allergy Status Severity Reaction(s) Onset Inactive Treating Comm ents Source Name Type Date Date Clinician valsarta valsarta Active angioedema Co mmon n n Spirit - [facility] 6335 Drug Active Unknown Common allergy [facility] cephalex cephalex Active shock Common in in [facility] carvedil carvedil Active Unknown Commo n ol ol [facility] lisinopr lisinopr Active angioedema Co mmon il il [facility] Social History Social Habit Start Date Stop Date Quantity Comments Source History of Tobacco Current Smoker Co mmon [facility] - [facility] Use [facility] Sex Assigned At Com mon [facility] Smoking Status Start Date Stop Date Source Current Smoker 2022-12-10 00:00:00 Common Spiri [facility] Never Smoker Common [facility] Medications Ordered Filled Start Stop Current Ordering [...] t multidose vial multidose vial 17:04:00 - [facility] Flucelvax - Flucelvax - 2021-07-31 Completed Common Spiri t multidose vial multidose vial 17:04:00 - [facility] Flucelvax - Flucelvax - 2021-07-31 Completed Common Spiri t multidose vial multidose vial 17:04:00 - [facility] Flucelvax - Flucelvax - 2021-07-31 Completed Common Spiri t multidose vial multidose vial 17:04:00 - [facility] Flucelvax - Flucelvax - 2021-07-31 Completed Common Spiri t multidose vial multidose vial 17:04:00 - [facility] Flucelvax - Flucelvax - 2021-07-31 Completed Common Spiri t multidose vial multidose vial 17:04:00 - [facility] Flucelvax - Flucelvax - 2021-07-31 Completed Common Spiri t multidose vial multidose vial 17:04:00 - [facility] Flucelvax - Flucelvax - 2021-07-31 Completed Common Spiri t multidose vial multidose vial 17:04:00 - [facility] Flucelvax - Flucelvax - 2021-07-31 Completed Common Spiri t multidose vial multidose vial 17:04:00 - [facility] Flucelvax - Flucelvax - 2021-07-31 Completed Common Spiri t multidose vial multidose vial 17:04:00 - [facility] Flucelvax - Flucelvax - 2021-07-31 Completed Common Spiri t multidose vial multidose vial 17:04:00 - [facility] Flucelvax - Flucelvax - 2021-07-31 Completed Common Spiri t multidose vial multidose vial 17:04:00 - [facility] Flucelvax - Flucelvax - 2021-07-31 Completed Common Spiri t multidose vial multidose vial 17:04:00 - [facility] Flucelvax - Flucelvax - 2021-07-31 Completed Common Spiri t multidose vial multidose vial 17:04:00 - [facility] Flucelvax - Flucelvax - 2021-07-31 Completed Common Spiri t multidose vial multidose vial 17:04:00 - [facility] Flucelvax - Flucelvax - 2021-07-31 Completed Common Spiri t multidose vial multidose vial 17:04:00 - [facility] Flucelvax - Flucelvax - 2021-07-31 Completed Common Spiri t multidose vial multidose vial 17:04:00 - [facility] Flucelvax - Flucelvax - 2021-07-31 Completed Common Spiri t multidose vial multidose vial 17:04:00 - [facility] Flucelvax - Flucelvax - 2021-07-31 Completed Common Spiri t multidose vial multidose vial 17:04:00 - [facility] Flucelvax - Flucelvax - 2021-07-31 Completed Common Spiri t multidose vial multidose vial 17:04:00 - [facility] Flucelvax - Flucelvax - 2021-07-31 Completed Common Spiri t multidose vial multidose vial 17:04:00 - [facility] Flucelvax - Flucelvax - 2021-07-31 Completed Common Spiri t multidose vial multidose vial 17:04:00 - [facility] Flucelvax - single Flucelvax - single 2019-05-05 Completed Common Spirit dose syringe dose syringe 17:06:00 - [facility] Flucelvax - single Flucelvax - single 2019-05-05 Completed Common Spirit dose syringe dose syringe 17:06:00 - [facility] Flucelvax - single Flucelvax - single 2019-05-05 Completed Common Spirit dose syringe dose syringe 17:06:00 - [facility] Flucelvax - single Flucelvax - single 2019-05-05 Completed Common Spirit dose syringe dose syringe 17:06:00 - [facility] Flucelvax - single Flucelvax - single 2019-05-05 Completed Common Spirit dose syringe dose syringe 17:06:00 - [facility] Flucelvax - single Flucelvax - single 2019-05-05 Completed Common Spirit dose syringe dose syringe 17:06:00 - [facility] Flucelvax - single Flucelvax - single 2019-05-05 Completed Common Spirit dose syringe dose syringe 17:06:00 - [facility] Flucelvax - single Flucelvax - single 2019-05-05 Completed Common Spirit dose syringe dose syringe 17:06:00 - [facility] Flucelvax - single Flucelvax - single 2019-05-05 Completed Common Spirit dose syringe dose syringe 17:06:00 - [facility] Flucelvax - single Flucelvax - single 2019-05-05 Completed Common Spirit dose syringe dose syringe 17:06:00 - [facility] Flucelvax - single Flucelvax - single 2019-05-05 Completed Common Spirit dose syringe dose syringe 17:06:00 - [facility] Flucelvax - single Flucelvax - single 2019-05-05 Completed Common Spirit dose syringe dose syringe 17:06:00 - [facility] Flucelvax - single Flucelvax - single 2019-05-05 Completed Common Spirit dose syringe dose syringe 17:06:00 - [facility] Flucelvax - single Flucelvax - single 2019-05-05 Completed Common Spirit dose syringe dose syringe 17:06:00 - [facility] Flucelvax - single Flucelvax - single 2019-05-05 Completed Common Spirit dose syringe dose syringe 17:06:00 - [facility] Flucelvax - single Flucelvax - single 2019-05-05 Completed Common Spirit dose syringe dose syringe 17:06:00 - [facility] Flucelvax - single Flucelvax - single 2019-05-05 Completed Common Spirit dose syringe dose syringe 17:06:00 - [facility] Flucelvax - single Flucelvax - single 2019-05-05 Completed Common Spirit dose syringe dose syringe 17:06:00 - [facility] Flucelvax - single Flucelvax - single 2019-05-05 Completed Common Spirit dose syringe dose syringe 17:06:00 - [facility] Flucelvax - single Flucelvax - single 2019-05-05 Completed Common Spirit dose syringe dose syringe 17:06:00 - [facility] Flucelvax - single Flucelvax - single 2019-05-05 Completed Common Spirit dose syringe dose syringe 17:06:00 - [facility] Flucelvax - single Flucelvax - single 2019-05-05 Completed Common Spirit dose syringe dose syringe 17:06:00 - [facility] Flucelvax - single Flucelvax - single 2019-05-05 Completed Common Spirit dose syringe dose syringe 17:06:00 - [facility] Vital Signs Vital Name Observation Time Observation Value Comments Source height 2022-09-15 16:00:00 73 [in_i] [facility] weight 2022-09-15 16:00:00 227.8 [lb_av] [facility] temperature 2022-09-15 16:00:00 97.3 [degF] [facility] bmi 2022-09-15 16:00:00 30.05 kg/m2 [facility] oximetry 2022-09-15 16:00:00 95 % [facility] respiratory rate 2022-09-15 16:00:00 16 /min Comm on [facility] blood pressure 2022-09-15 16:00:00 134 mm[Hg] Common Spirit - systolic [facility] blood pressure 2022-09-15 16:00:00 79 mm[Hg] Common Spirit - diastolic [facility] height 2022-09-15 16:00:00 73 [in_i] Common [facility] weight 2022-09-15 16:00:00 227.8 [lb_av] Common [facility] temperature 2022-09-15 16:00:00 97.3 [degF] Common S [facility] bmi 2022-09-15 16:00:00 30.05 kg/m2 Common S [facility] oximetry 2022-09-15 16:00:00 95 % Common [facility] respiratory rate 2022-09-15 16:00:00 16 /min Comm on [facility] blood pressure 2022-09-15 16:00:00 134 mm[Hg] Common Spirit - systolic [facility] blood pressure 2022-09-15 16:00:00 79 mm[Hg] Common [facility] - diastolic [facility] height 2022-09-03 17:00:00 73 [in_i] Common S [facility] weight 2022-09-03 17:00:00 225.4 [lb_av] Common [facility] temperature 2022-09-03 17:00:00 98.6 [degF] Common S pirit [facility] bmi 2022-09-03 17:00:00 29.73 kg/m2 Common S [facility] oximetry 2022-09-03 17:00:00 99 % Common S [facility] respiratory rate 2022-09-03 17:00:00 18 /min Comm on [facility] blood pressure 2022-09-03 17:00:00 136 mm[Hg] Common [facility] - systolic [facility] blood pressure 2022-09-03 17:00:00 80 mm[Hg] Common [facility] - diastolic [facility] height 2022-06-16 16:00:00 73 [in_i] Common [facility] weight 2022-06-16 16:00:00 220 [lb_av] [facility] temperature 2022-06-16 16:00:00 97.5 [degF] Common [facility] bmi 2022-06-16 16:00:00 29.02 kg/m2 [facility] oximetry 2022-06-16 16:00:00 96 % [facility] respiratory rate 2022-06-16 16:00:00 16 /min Comm on [facility] blood pressure 2022-06-16 16:00:00 160 mm[Hg] Common [facility] - systolic [facility] blood pressure 2022-06-16 16:00:00 90 mm[Hg] Common [facility] - diastolic [facility] blood pressure 2021-07-18 17:00:00 91 mm[Hg] Common [facility] - diastolic [facility] height 2021-07-18 17:00:00 73 [in_i] [facility] weight 2021-07-18 17:00:00 225 [lb_av] [facility] temperature 2021-07-18 17:00:00 97.9 [degF] [facility] bmi 2021-07-18 17:00:00 29.68 kg/m2 [facility] oximetry 2021-07-18 17:00:00 99 % [facility] respiratory rate 2021-07-18 17:00:00 18 /min Comm on [facility] blood pressure 2021-07-18 17:00:00 146 mm[Hg] [facility] systolic [facility] Procedures This patient has no known procedures. Encounters Start End Encounter Admission Attending Care Care Encounter Source Date/Time Date/Time Type Type Clinicians Facility Department ID 2023-01-13 Outpatient [place] STLMLC STLMLC [id number] Common 08:24:01 Mary [id number] [facility] 2022-12-16 Outpatient [place], STLMLC STLMLC [id number] Common 14:33:02 Mary [id number] [facility] 2022-11-11 Outpatient [place], STLMLC STLMLC [id number] Common 08:03:02 Mary [id number] [facility] 2022-10-13 Outpatient [place], STLMLC STLMLC [id number] Common 15:31:02 Mary [id number] [facility] 2022-09-16 Outpatient [place], STLMLC STLMLC [id number] Common 11:26:01 Mary [id number] [facility] 2022-09-11 Outpatient [place], STLMLC STLMLC [id number] Common 09:33:00 Mary [id number] [facility] 2022-06-13 Outpatient [place], STLMLC STLMLC [id number] Common 09:11:01 Mary [id number] [facility] 2022-03-27 Outpatient [place], STLMLC STLMLC [id number] Common 11:28:02 Mary [facility] 2022-03-17 Outpatient [place], STLMLC STLMLC [id number] Common 09:41:01 Mary [facility] 2022-03-11 Outpatient [place], STLMLC STLMLC [id number] Common 11:41:02 Mary [facility] 2022-03-06 Outpatient [place], STLMLC STLMLC [id number] Common 14:55:01 Mary [facility] 2022-02-24 Outpatient [place], STLMLC STLMLC [id number] Common 08:36:04 Mary [facility] 2022-02-07 Outpatient [place], STLMLC STLMLC [id number] Common 11:10:02 Mary [facility] 2021-12-23 Outpatient [place], STLMLC STLMLC [id number] Common 16:24:01 Mary [facility] 2021-10-21 Outpatient [place], STLMLC STLMLC [id number] Common 14:49:01 Mary [facility] 2021-09-04 Outpatient [place], STLMLC STLMLC [id number] Common 14:26:58 Mary [facility] 2021-09-04 Outpatient [place], STLMLC STLMLC [id number] Common 14:23:10 Mary [id number] [facility] 2022-09-15 2022-09-15 OFFICE STLMLC STLMLC [id number] Co mmon 00:00:00 00:00:00 VISIT [facility] ESTAB PT - CHI LEVEL 4 [facility] 2022-09-15 2022-09-15 INIT STLMLC STLMLC [id number] Co mmon 00:00:00 00:00:00 ANNUAL MCR Spi rit WELLNESS - CHI VISIT [facility] 2022-09-10 2022-09-10 (TEL) STLMLC STLMLC [id number] Co mmon 00:00:00 00:00:00 [facility] 2022-09-03 2022-09-03 OFFICE STLMLC STLMLC [id number] Co mmon 00:00:00 00:00:00 VISIT EST Spir it PT LEVEL 3 - [facility] 2022-07-29 2022-07-29 (TEL) STLMLC STLMLC [id number] Co mmon 00:00:00 00:00:00 [facility] 2022-07-22 2022-07-22 ([place]) Nurse STLMLC STLMLC [id number] Common 00:00:00 00:00:00 Visit [facility] 2022-07-15 2022-07-15 ([place]) Nurse STLMLC STLMLC [id number] Common 00:00:00 00:00:00 Visit [facility] 2022-07-09 2022-07-09 (TEL) STLMLC STLMLC [id number] Co mmon 00:00:00 00:00:00 [facility] 2022-07-08 2022-07-08 ([place]) Nurse STLMLC STLMLC [id number] Common 00:00:00 00:00:00 Visit [facility] 2022-07-01 2022-07-01 (TEL) STLMLC STLMLC [id number] Co mmon 00:00:00 00:00:00 [facility] 2022-07-01 2022-07-01 ([place]) Nurse STLMLC STLMLC [id number] Common 00:00:00 00:00:00 Visit [facility] 2022-06-26 2022-06-26 (TEL) STLMLC STLMLC [id number] Co mmon 00:00:00 00:00:00 [facility] 2022-06-25 2022-06-25 (TEL) STLMLC STLMLC [id number] Co mmon 00:00:00 00:00:00 [facility] 2022-06-24 2022-06-24 ([place]) Nurse STLMLC STLMLC [id number] Common 00:00:00 00:00:00 Visit [facility] 2022-06-17 2022-06-17 ([place]) Nurse STLMLC STLMLC [id number] Common 00:00:00 00:00:00 Visit [facility] 2022-06-16 2022-06-16 OFFICE STLMLC STLMLC [id number] Co mmon 00:00:00 00:00:00 VISIT [facility] LEVEL 4 [facility] 2022-06-03 2022-06-03 ([place]) Nurse STLMLC STLMLC [id number] Common 00:00:00 00:00:00 Visit [facility] 2022-05-27 2022-05-27 ([place]) Nurse STLMLC STLMLC [id number] Common 00:00:00 00:00:00 Visit [facility] 2022-05-20 2022-05-20 ([place]) Nurse STLMLC STLMLC [id number] Common 00:00:00 00:00:00 Visit [facility] 2022-05-13 2022-05-13 ([place]) Nurse STLMLC STLMLC [id number] Common 00:00:00 00:00:00 Visit [facility] 2022-05-06 2022-05-06 ([place]) Nurse STLMLC STLMLC [id number] Common 00:00:00 00:00:00 Visit [facility] 2022-04-21 2022-04-21 ambulatory STLMLC STLMLC [id number] Common 00:00:00 00:00:00 [facility] 2022-03-31 2022-03-31 ambulatory STLMLC STLMLC [id number] Common 00:00:00 00:00:00 [facility] 2022-03-20 2022-03-20 ambulatory STLMLC STLMLC [id number] Common 00:00:00 00:00:00 [facility] 2022-03-17 2022-03-17 ambulatory STLMLC STLMLC [id number] Common 00:00:00 00:00:00 [facility] 2022-03-14 2022-03-14 ambulatory STLMLC STLMLC [id number] Common 00:00:00 00:00:00 [facility] 2022-03-13 2022-03-13 ambulatory STLMLC STLMLC [id number] Common 00:00:00 00:00:00 [facility] 2022-03-11 2022-03-11 ambulatory STLMLC STLMLC [id number] Common 00:00:00 00:00:00 [facility] 2022-03-06 2022-03-06 ambulatory STLMLC STLMLC [id number] Common 00:00:00 00:00:00 [facility] 2022-02-26 2022-02-26 ambulatory STLMLC STLMLC [id number] Common 00:00:00 00:00:00 [facility] 2022-02-07 2022-02-07 ambulatory STLMLC STLMLC [id number] Common 00:00:00 00:00:00 [facility] 2021-12-20 2021-12-20 ambulatory STLMLC STLMLC [id number] Common 00:00:00 00:00:00 [facility] 2021-11-12 2021-11-12 ambulatory STLMLC STLMLC [id number] Common 00:00:00 00:00:00 [facility] 2021-10-16 2021-10-16 ambulatory STLMLC STLMLC [id number] Common 00:00:00 00:00:00 [facility] 2021-07-31 2021-07-31 ambulatory STLMLC STLMLC [id number] Common 00:00:00 00:00:00 [facility] 2021-07-24 2021-07-24 (TEL) STLMLC STLMLC [id number] Co mmon 00:00:00 00:00:00 [facility] 2021-07-18 2021-07-18 OFFICE STLMLC STLMLC [id number] Co mmon 00:00:00 00:00:00 VISIT EST Spir it PT LEVEL 3 [facility] Results Test Description Test Time Test Comments Results Result Comments Source HEMOGLOBIN A1C 2022-06-16 00:00:00 Test Item Value Reference Range Interpretation Comme nts A1C (test code = 4548-4) 9.4
--- NOTE | 2023-04-12 14:23 | ER ---
Nurse's Notes [facility] Name: Neftali Gill Jr Age: 68 yrs Sex: Male : 1955 Arrival Date: 04/12/2023 Time: 14:00 Bed IW1 Private MD: Diagnosis: Blister (nonthermal) of foot Presentation: 04/12 14:27 Chief complaint: Patient states: left foot pain since Thursday , blister noted to inside iw of foot. Coronavirus screen: At this time, the client does not indicate any symptoms associated with coronavirus-19. Ebola Screen: Patient negative for fever greater than or equal to 101.5 degrees Fahrenheit, and additional compatible Ebola Virus Disease symptoms Patient denies exposure to infectious person. Patient denies travel to an Ebola-affected area in the 21 days before illness onset. No symptoms or risks identified at this time. Risk Assessment: Do you want to hurt yourself or someone else? Patient reports no desire to harm self or others. Onset of symptoms. 14:27 Method Of Arrival: Ambulatory iw 14:27 Acuity: DUNCAN 4 iw 14:29 Initial Sepsis Screen: Does the patient meet any 2 criteria? No. Patient's initial iw sepsis screen is negative. Does the patient have a suspected source of infection? No. Patient's initial sepsis screen is negative. Triage Assessment: 14:30 General: Appears in no apparent distress. Behavior is calm, cooperative. iw Historical: - Allergies: 14:18 Cephalexin; iw 14:18 valsartan; iw 14:18 NSAIDS; iw 14:18 Lisinopril; iw 14:18 Diovan; iw 14:18 ACES; iw 14:18 nebivolol HCl; iw Screenin:38 [facility] ED Fall Risk Assessment (Adult) Score/Fall Risk Level 0 - 2 = Low Risk. Abuse iw screen: Denies threats or abuse. Denies injuries from another. Nutritional screening: No deficits noted. Tuberculosis screening: No symptoms or risk factors identified. Assessment: 14:27 General: Appears in no apparent distress. Behavior is calm, cooperative. Pain: iw Complains of pain in medial aspect of left foot. Neuro: Level of Consciousness is awake, alert, obeys commands, Oriented to person, place, time, situation, Moves all extremities. Cardiovascular: Patient's skin is warm and dry. Respiratory: Respiratory effort is even, unlabored, Respiratory pattern is regular. Musculoskeletal: Range of motion: intact in all extremities. Vital Signs: 14:27 BP 155 / 72; Pulse 75; Resp 16; Temp 98.2; Pulse Ox 100% on R/A; iw 14:29 Resp 16; Temp 97.2; Pulse Ox 100% on R/A; iw ED Course: 14:03 Patient arrived in ED. ts1 14:04 Leida Byrne FNP-C is [facility]. kb 14:04 Raj Hayden MD is Attending Physician. kb 14:27 Triage completed. iw 14:29 Nedra Lakhani, RN is Primary Nurse. iw 14:30 Arm band placed on. iw 14:38 No provider procedures requiring assistance completed. Patient did not have IV access iw during this emergency room visit. Administered Medications: No medications were administered Medication: 14:30 VIS not applicable for this client. iw Outcome: 14:22 Discharge ordered by MD. kb 14:38 Discharged to home ambulatory. iw 14:38 Condition: good 14:38 Discharge instructions given to patient. 14:38 Demonstrated understanding of Prescriptions given X 2. 14:39 Patient left the ED. iw Signatures: Leida Byrne FNP-C [employer]-Nedra Orozco, ANSLEY RN iw May Gutierrez PAS PAS ts1 Corrections: (The following items were deleted from the chart) 14:29 14:27 Chief complaint: Patient states: left foot pain since Thursday , mild swelling iw iw 14:31 14:27 Resp 16bpm; Pulse Ox 100% RA; Temp 98.2F; iw iw
--- NOTE | 2023-04-12 14:23 | EDPHYS ---
Physician Documentation [facility] Name: Neftali Gill Jr Age: 68 yrs Sex: Male : 1955 Arrival Date: 04/12/2023 Time: 14:00 Bed IW1 Private MD: ED Physician Raj aHyden HPI: 04/12 15:27 This 68 yrs old Black Male presents to ER via Ambulatory with complaints of Foot Pain. kb 15:27 Pt reports he had some soreness to medial aspect of left foot and developed a blister. kb States he no longer has pain but is concerned that he will get an infection to the area. Requests blister be drained so that it doesn't pop on its own and get infected. Pt educated that we normally leave blisters intact so that bacteria isn't introduced. Pt understands but still wants blister drained. . Historical: - Allergies: 14:18 Cephalexin; iw 14:18 valsartan; iw 14:18 NSAIDS; iw 14:18 Lisinopril; iw 14:18 Diovan; iw 14:18 ACES; iw 14:18 nebivolol HCl; iw ROS: 15:26 Constitutional: Negative for fever, chills, and weight loss. kb 15:26 Skin: Positive for of the medial aspect of left foot, blister. 15:26 All other systems are negative. Exam: 15:26 Constitutional: This is a well developed, well nourished patient who is awake, alert, kb and in no acute distress. Head/Face: Normocephalic, atraumatic. ENT: Moist Mucous membranes Cardiovascular: Regular rate and rhythm with a normal S1 and S2. No gallops, murmurs, or rubs. No pulse deficits. Respiratory: Respirations even and unlabored. No increased work of breathing. Talking in full sentences MS/ Extremity: Pulses equal, no cyanosis. Neurovascular intact. Full, normal range of motion. Neuro: Awake and alert, GCS 15, oriented to person, place, time, and situation. Moves all extremities. Normal gait. 15:26 Skin: blister to medial aspect of left foot. Vital Signs: 14:27 BP 155 / 72; Pulse 75; Resp 16; Temp 98.2; Pulse Ox 100% on R/A; iw 14:29 Resp 16; Temp 97.2; Pulse Ox 100% on R/A; iw MDM: 14:04 Patient medically screened. kb 15:27 Data reviewed: vital signs, nurses notes. kb 15:31 Differential diagnosis: abscess, blister, cellulitis, diabetic ulcer. Counseling: I had kb a detailed discussion with the patient and/or guardian regarding the historical points, exam findings, and any diagnostic results supporting the discharge/admit diagnosis, the need for outpatient follow up, a family practitioner, to return to the emergency department if symptoms worsen or persist or if there are any questions or concerns that arise at home. ED course: area cleaned with alcohol and 18G needle used to aspirate clear, pink fluid. Administered Medications: No medications were administered Disposition Summary: 04/12/23 14:22 Discharge Ordered Location: Home kb Condition: Stable kb Diagnosis - Blister (nonthermal) of foot kb Followup: kb - With: Private Physician - When: 2 - 3 days - Reason: Recheck today's complaints, Continuance of care, Re-evaluation by your physician Discharge Instructions: - Discharge Summary Sheet kb - Blisters, Adult kb Forms: - Medication Reconciliation Form kb - Thank You Letter kb - Antibiotic Education kb - Prescription Opioid Use kb - Patient Portal Instructions kb - Leadership Thank You Letter kb Prescriptions: - Cipro 500 mg Oral Tablet - take 1 tablet by ORAL route every 12 hours for 10 days; 20 tablet; Refills: 0, kb Product Selection Permitted - Doxycycline Hyclate 100 mg Oral Tablet - take 1 tablet by ORAL route every 12 hours; 20 tablet; Refills: 0, Product kb Selection Permitted Signatures: Leida Byrne, JESSIE MILSE-Nedra Orozco, RN RN iw
[2023-04-12 14:43] VITALS: BP 155/72; O2SAT 100
[2023-04-12 14:44] VITALS: TEMP 97.2
== END 2023-04-12 14:39 | disposition home or self-care (01) ==
LOC: ER 14:00
DX: S90.822A Blister (nonthermal), left foot, initial encounter (principal)
CPT/HCPCS: 99283

== ENCOUNTER 2023-07-04 03:37 | Emergency (ER) | payer OTHER ==
--- OUTSIDE RECORDS SUMMARY | 2023-07-04 03:47 | XMS REPORT | Continuity of Care Document ---
:1955 Author Organization [facility] t Address [address] [place] [address] Care Team Providers Name Role Phone Dolly Mary Attending Clinician Unavailable Payers Payer Name Policy Type Policy Number Effective Date Expiration Date [facility] 111 [id number] 2022 Common S pirit Advantage O 00:00:00 [facility] Problems Condition Condition Condition Status Onset Resolution Last Treating Co mments Source Name Details Category Date Date Treatment Clinician Date [id number] Detrusor Problem Comm on instabilit Spirit y [facility] [id number] Urge Problem Common incontinen [facility] [id number] BMI Problem Common 28.0-28.9, [facility] adult [facility] [id number] Diarrhea, Problem Comm on functional [facility] [id number] Primary Problem Common insomnia [facility] [id number] Lumbar Problem Common back pain [facility] with [facility] radiculopa [facility] lower [place] extremity [id number] Right Problem Common upper [facility] quadrant - [facility] abdominal [facility] Seasonal Seasonal Problem Commo n allergic allergic [facility] rhinitis reaction [facility] Peripheral Peripheral Problem C ommon neuropathy neuropathy Sp iveth [facility] Disturbanc Disturbanc Problem C ommon e of skin e of skin Spir it sensation sensation - CH I [facility] Angioedema Angioedema Problem C ommon [facility] Hypertensi Hypertensi Problem C ommon on on Spirit - CHI [facility] [id number] Wound of Problem Comm on skin Spirit - CHI [facility] [id number] S/P TURP Problem Comm on (status Spirit post - [facility]I transureth [facility] resection Medical of Center prostate) [id number] Dysuria Problem Common Spirit - [facility] [id number] 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 Medical complicati Center on [id number] Other Problem Common postherpet Spirit ic nervous - [facility]I system [facility] [id number] Hospital Problem Comm on discharge Spirit follow-up - [facility] 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 - [facility] [id number] Diarrhea Problem Commo n of Spirit presumed - [facility]I infectious [facility] [id number] Acquired Problem Comm on anal Spirit stenosis - [facility] [id number] Lower Problem Common urinary [facility] tract - [facility] [id number] BPH loc w Problem Com mon urin Spirit obs/LUTS - CHI [facility] 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 - C HI a hyperplasi [facility] [id number] Prostatiti Problem Com mon s, acute [facility] [id number] ED Problem Common (erectile Spirit dysfunctio - CHI n) of [facility] Routine Routine Problem Common eye exam eye exam [facility] 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 [facility] Overactive Overactive Problem C ommon bladder bladder [facility] Impotence 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 - CHI n) [facility] [id number] 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 - CHI other part St of right [facility] foot with Medical unspecifie Center d severity [id number] Type 2 Problem Common diabetes Spirit mellitus - [facility]I with foot ulcer [facility] [id number] Gastroesop Problem Co mmon hageal Spirit reflux - CHI disease [facility] [id number] Urethritis Problem Com [facility] [id number] Incomplete Problem Co mmon emptying [facility] Allergies, Adverse Reactions, Alerts Allergy Allergy Status Severity Reaction(s) Onset Inactive Treating Comm ents Source Name Type Date Date Clinician wade valsarta Active angioedema Co mmon n n [facility] 6335 Drug Active Unknown Common allergy [facility] cephalex cephalex Active shock Common in in [facility] carvedil carvedil Active Unknown Commo n ol ol [facility] lisinopr lisinopr Active angioedema Co mmon il il [facility] Social History Social Habit Start Date Stop Date Quantity Comments Source History of Tobacco Current Smoker Co mmon [facility] - [facility] Use [facility] Sex Assigned At Com [facility] Smoking Status Start Date Stop Date Source Current Smoker 2023-05-21 00:00:00 Common [facility] Never Smoker Common [facility] Medications Ordered Filled Start Stop Current Ordering Indication Dosage Frequency Signature Comments Components Source Medication Medication Date Date Medication? Clinician (SIG) Name Name Pregabalin Pregabalin 2022-08 No 1{capsu BID Pregabalin 225 MG 225 MG 0-12 le} 225 MG 00:00: 00 Pregabalin Pregabalin 2022-08 No 1{capsu BID Pregabalin 225 MG 225 MG 0-12 le} 225 MG 00:00: 00 Pregabalin Pregabalin 2022-08 No 1{capsu BID Pregabalin 225 MG 225 MG 0-12 le} 225 MG 00:00: 00 Pregabalin Pregabalin 2022-08 No 1{capsu BID Pregabalin 225 MG 225 MG 0-12 le} 225 MG 00:00: 00 Pregabalin Pregabalin 2022-08 No 1{capsu BID Pregabalin 225 MG 225 MG 0-12 le} 225 MG 00:00: 00 Pregabalin Pregabalin 2022-08 No 1{capsu BID Pregabalin 225 MG 225 MG 0-12 le} 225 MG 00:00: 00 Pregabalin Pregabalin 2023-1 No 1{capsu BID Pregabalin 225 MG 225 MG 0-12 le} 225 MG 00:00: 00 Pregabalin Pregabalin 2023-0 No Pregabalin 200 MG 200 MG 5-21 200 MG 00:00: 00 Pregabalin Pregabalin 2023-0 No Pregabalin 200 MG 200 MG 5-21 200 MG 00:00: 00 Pregabalin Pregabalin 2023-0 No Pregabalin 200 MG 200 MG 5-21 200 MG 00:00: 00 Pregabalin Pregabalin 2023-0 No Pregabalin 200 MG 200 MG 5-21 200 MG 00:00: 00 Pregabalin Pregabalin 2023-0 No Pregabalin 200 MG 200 MG 5-21 200 MG 00:00: 00 Pregabalin Pregabalin 2023-0 No Pregabalin 200 MG 200 MG 5-21 200 MG 00:00: 00 Pregabalin Pregabalin 3-0 No Pregabalin 200 MG 200 MG 5-21 200 MG 00:00: 00 Pregabalin Pregabalin 3-0 No Pregabalin 200 MG 200 MG 5-21 200 MG 00:00: 00 Pregabalin Pregabalin 3-0 No Pregabalin 225 MG 225 MG 3-07 225 MG 00:00: 00 Viagra 100 Viagra 100 2023-0 No Viagra 100 MG MG 1-25 MG 00:00: 00 Viagra 100 Viagra 100 2023-0 No Viagra 100 MG MG 1-25 MG 00:00: 00 Viagra 100 Viagra 100 2023-0 No Viagra 100 MG MG 1-25 MG 00:00: 00 Viagra 100 Viagra 100 2023-0 No Viagra 100 MG MG 1-25 MG 00:00: 00 Viagra 100 Viagra 100 2023-0 No Viagra 100 MG MG 1-25 MG 00:00: 00 Viagra 100 Viagra 100 2023-0 2023- No Viagra 100 MG MG 1-25 08-23 MG 00:00: 00:00 00 :00 Viagra 100 Viagra 100 2023-0 2023- No Viagra 100 MG MG 1-25 08-23 MG 00:00: 00:00 00 :00 Viagra 100 Viagra 100 2023-0 2022- No Viagra 100 MG MG 1-25 [...] 2020-08 No Pregabalin 200 MG 200 MG 1-22 200 MG 00:00: 00 Esomeprazol Esomeprazol No [...] Magnesium 7-25 le 40 MG 40 MG 00:: Magnesium 00 40 MG Esomeprazol Esomeprazol No QD Esomeprazo e Magnesium e Magnesium 7-25 le 40 MG 40 MG 00:: Magnesium 00 40 MG clomiPHENE clomiPHENE No [...] MG MG :: MG 00 clomiPHENE clomiPHENE 0 No QD clomiPHENE Citrate 50 Citrate 50 [...] MG MG 00:00: MG 00 clomiPHENE clomiPHENE 0 No QD clomiPHENE Citrate 50 Citrate 50 [...] 3-10 Citrate 50 MG MG :00: MG clomiPHENE clomiPHENE No QD clomiPHENE Citrate [...] MG HCl 500 MG HCl 500 MG Doxycycline Doxycycline No 1{table BID Doxycyclin Hyclate 100 Hyclate 100 t} e Hyclate MG MG 100 MG hydroCHLORO hydroCHLORO No 1{table QD hydroCHLOR thiazide 25 thiazide 25 t_in_th Othiazide MG MG e_morni 25 MG ng} Pravastatin Pravastatin No QD Pravastati Sodium 40 Sodium 40 n Sodium MG MG 40 MG hydrOXYzine hydrOXYzine No TID hydrOXYzin HCl 25 MG HCl 25 MG e HCl 25 MG metFORMIN metFORMIN No 1{table QD metFORMIN HCl 500 MG HCl 500 MG t_with_ HCl 500 MG a_meal} metFORMIN metFORMIN No 1{table BID metFORMIN HCl 1000 MG HCl 1000 MG t_with_ HCl 1000 a_meal} MG Ciprofloxac Ciprofloxac No 1{table BID Ciprofloxa in HCl 500 in HCl 500 t} hardik HCl MG MG 500 MG predniSONE predniSONE No 1{table QD predniSONE 20 MG 20 MG t} 20 MG traZODone traZODone No 1{table QD traZODone HCl 50 MG HCl 50 MG t_at_be HCl 50 MG dtime_a s_neede d} Cholestyram Cholestyram No 1{packe QD Cholestyra ine 4 GM ine 4 GM t_mixed mine 4 GM _with_w ater_or _non-ca rbonate d_drink } Valtrex 1 Valtrex 1 No 1{table QD Valtrex 1 GM GM t} GM Mupirocin 2 Mupirocin 2 No 1{appli QD Mupirocin % % cation} 2 % Combigan Combigan No Combigan 0.2-0.5 % 0.2-0.5 % 0.2-0.5 % glipiZIDE glipiZIDE No QD glipiZIDE 10 MG 10 MG 10 MG NIFEdipine NIFEdipine No 1{table QD NIFEdipine ER Osmotic ER Osmotic t} ER Osmotic Release 90 Release 90 Release 90 MG MG MG Esomeprazol Esomeprazol No 1{capsu QD Esomeprazo e Magnesium e Magnesium le} le 40 MG 40 MG Magnesium 40 MG Toujeo Max Toujeo Max No QD Toujeo Max SoloStar SoloStar SoloStar 300 UNIT/ML 300 UNIT/ML 300 UNIT/ML hydrALAZINE hydrALAZINE No 1{table TID hydrALAZIN HCl 100 MG HCl 100 MG t_with_ E HCl 100 food} MG Dicyclomine Dicyclomine No Dicyclomin HCl 20 MG HCl 20 MG e HCl 20 MG Toujeo Max Toujeo Max No QD Toujeo Max SoloStar SoloStar SoloStar 300 UNIT/ML 300 UNIT/ML 300 UNIT/ML Doxycycline Doxycycline No 1{table BID Doxycyclin Hyclate 100 Hyclate 100 t} e Hyclate MG MG 100 MG hydroCHLORO hydroCHLORO No 1{table QD hydroCHLOR thiazide 25 thiazide 25 t_in_th Othiazide MG MG e_morni 25 MG ng} Pravastatin Pravastatin No QD Pravastati Sodium 40 Sodium 40 n Sodium MG MG 40 MG Valtrex 1 Valtrex 1 No 1{table QD Valtrex 1 GM GM t} GM metFORMIN metFORMIN No 1{table QD metFORMIN HCl 500 MG HCl 500 MG t_with_ HCl 500 MG a_meal} Mupirocin 2 Mupirocin 2 No 1{appli QD Mupirocin % % cation} 2 % metFORMIN metFORMIN No 1{table BID metFORMIN HCl 1000 MG HCl 1000 MG t_with_ HCl 1000 a_meal} MG predniSONE predniSONE No 1{table QD predniSONE 20 MG 20 MG t} 20 MG Ciprofloxac Ciprofloxac No 1{table BID Ciprofloxa in HCl 500 in HCl 500 t} hardik HCl MG MG 500 MG Cholestyram Cholestyram No 1{packe QD Cholestyra ine 4 GM ine 4 GM t_mixed mine 4 GM _with_w ater_or _non-ca rbonate d_drink } hydrALAZINE hydrALAZINE No 1{table TID hydrALAZIN HCl 100 MG HCl 100 MG t_with_ E HCl 100 food} MG Dicyclomine Dicyclomine No Dicyclomin HCl 20 MG HCl 20 MG e HCl 20 MG glipiZIDE glipiZIDE No QD glipiZIDE 10 MG 10 MG 10 MG hydrOXYzine hydrOXYzine No TID hydrOXYzin HCl 25 MG HCl 25 MG e HCl 25 MG Combigan Combigan No Combigan 0.2-0.5 % 0.2-0.5 % 0.2-0.5 % NIFEdipine NIFEdipine No 1{table QD NIFEdipine ER Osmotic ER Osmotic t} ER Osmotic Release 90 Release 90 Release 90 MG MG MG Esomeprazol Esomeprazol No 1{capsu QD Esomeprazo e Magnesium e Magnesium le} le 40 MG 40 MG Magnesium 40 MG traZODone traZODone No 1{table QD traZODone HCl 50 MG HCl 50 MG t_at_be HCl 50 MG dtime_a s_neede d} NIFEdipine NIFEdipine No NIFEdipine ER Osmotic ER Osmotic ER Osmotic Release 90 Release 90 Release 90 MG MG MG Toujeo Max Toujeo Max No QD Toujeo Max SoloStar SoloStar SoloStar 300 UNIT/ML 300 UNIT/ML 300 UNIT/ML Doxycycline Doxycycline No 1{table BID Doxycyclin Hyclate 100 Hyclate 100 t} e Hyclate MG MG 100 MG hydroCHLORO hydroCHLORO No 1{table QD hydroCHLOR thiazide 25 thiazide 25 t_in_th Othiazide MG MG e_morni 25 MG ng} Pravastatin Pravastatin No QD Pravastati Sodium 40 Sodium 40 n Sodium MG MG 40 MG metFORMIN metFORMIN No 1{table BID metFORMIN HCl 1000 MG HCl 1000 MG t_with_ HCl 1000 a_meal} MG Valtrex 1 Valtrex 1 No 1{table QD Valtrex 1 GM GM t} GM metFORMIN metFORMIN No 1{table QD metFORMIN HCl 500 MG HCl 500 MG t_with_ HCl 500 MG a_meal} Mupirocin 2 Mupirocin 2 No 1{appli QD Mupirocin % % cation} 2 % metFORMIN metFORMIN No 1{table BID metFORMIN HCl 1000 MG HCl 1000 MG t_with_ HCl 1000 a_meal} MG predniSONE predniSONE No 1{table QD predniSONE 20 MG 20 MG t} 20 MG Ciprofloxac Ciprofloxac No 1{table BID Ciprofloxa in HCl 500 in HCl 500 t} hardik HCl MG MG 500 MG Cholestyram Cholestyram No 1{packe QD Cholestyra ine 4 GM ine 4 GM t_mixed mine 4 GM _with_w ater_or _non-ca rbonate d_drink } hydrALAZINE hydrALAZINE No 1{table TID hydrALAZIN HCl 100 MG HCl 100 MG t_with_ E HCl 100 food} MG Dicyclomine Dicyclomine No Dicyclomin HCl 20 MG HCl 20 MG e HCl 20 MG glipiZIDE glipiZIDE No QD glipiZIDE 10 MG 10 MG 10 MG hydrOXYzine hydrOXYzine No TID hydrOXYzin HCl 25 MG HCl 25 MG e HCl 25 MG Combigan Combigan No Combigan 0.2-0.5 % 0.2-0.5 % 0.2-0.5 % NIFEdipine NIFEdipine No 1{table QD NIFEdipine ER Osmotic ER Osmotic t} ER Osmotic Release 90 Release 90 Release 90 MG MG MG Esomeprazol Esomeprazol No 1{capsu QD Esomeprazo e Magnesium e Magnesium le} le 40 MG 40 MG Magnesium 40 MG traZODone traZODone No 1{table QD traZODone HCl 50 MG HCl 50 MG t_at_be HCl 50 MG dtime_a s_neede d} Pravastatin Pravastatin No Pravastati Sodium 40 Sodium 40 n Sodium MG MG 40 MG Toujeo Max Toujeo Max No QD Toujeo Max SoloStar SoloStar SoloStar 300 UNIT/ML 300 UNIT/ML 300 UNIT/ML Doxycycline Doxycycline No 1{table BID Doxycyclin Hyclate 100 Hyclate 100 t} e Hyclate MG MG 100 MG hydroCHLORO hydroCHLORO No 1{table QD hydroCHLOR thiazide 25 thiazide 25 t_in_th Othiazide MG MG e_morni 25 MG ng} Pravastatin Pravastatin No QD Pravastati Sodium 40 Sodium 40 n Sodium MG MG 40 MG Valtrex 1 Valtrex 1 No 1{table QD Valtrex 1 GM GM t} GM metFORMIN metFORMIN No 1{table QD metFORMIN HCl 500 MG HCl 500 MG t_with_ HCl 500 MG a_meal} Valtrex 1 Valtrex 1 No 1{table QD Valtrex 1 GM GM t} GM Mupirocin 2 Mupirocin 2 No 1{appli QD Mupirocin % % cation} 2 % metFORMIN metFORMIN No 1{table BID metFORMIN HCl 1000 MG HCl 1000 MG t_with_ HCl 1000 a_meal} MG predniSONE predniSONE No 1{table QD predniSONE 20 MG 20 MG t} 20 MG Ciprofloxac Ciprofloxac No 1{table BID Ciprofloxa in HCl 500 in HCl 500 t} hardik HCl MG MG 500 MG Cholestyram Cholestyram No 1{packe QD Cholestyra ine 4 GM ine 4 GM t_mixed mine 4 GM _with_w ater_or _non-ca rbonate d_drink } hydrALAZINE hydrALAZINE No 1{table TID hydrALAZIN HCl 100 MG HCl 100 MG t_with_ E HCl 100 food} MG Dicyclomine Dicyclomine No Dicyclomin HCl 20 MG HCl 20 MG e HCl 20 MG glipiZIDE glipiZIDE No QD glipiZIDE 10 MG 10 MG 10 MG hydrOXYzine hydrOXYzine No TID hydrOXYzin HCl 25 MG HCl 25 MG e HCl 25 MG Combigan Combigan No Combigan 0.2-0.5 % 0.2-0.5 % 0.2-0.5 % NIFEdipine NIFEdipine No 1{table QD NIFEdipine ER Osmotic ER Osmotic t} ER Osmotic Release 90 Release 90 Release 90 MG MG MG Esomeprazol Esomeprazol No 1{capsu QD Esomeprazo e Magnesium e Magnesium le} le 40 MG 40 MG Magnesium 40 MG traZODone traZODone No 1{table QD traZODone HCl 50 MG HCl 50 MG t_at_be HCl 50 MG dtime_a s_neede d} metFORMIN metFORMIN No metFORMIN HCl 500 MG HCl 500 MG HCl 500 MG Toujeo Max Toujeo Max No QD Toujeo Max SoloStar SoloStar SoloStar 300 UNIT/ML 300 UNIT/ML 300 UNIT/ML Doxycycline Doxycycline No 1{table BID Doxycyclin Hyclate 100 Hyclate 100 t} e Hyclate MG MG 100 MG hydroCHLORO hydroCHLORO No 1{table QD hydroCHLOR thiazide 25 thiazide 25 t_in_th Othiazide MG MG e_morni 25 MG ng} Pravastatin Pravastatin No QD Pravastati Sodium 40 Sodium 40 n Sodium MG MG 40 MG Valtrex 1 Valtrex 1 No 1{table QD Valtrex 1 GM GM t} GM metFORMIN metFORMIN No 1{table QD metFORMIN HCl 500 MG HCl 500 MG t_with_ HCl 500 MG a_meal} Mupirocin 2 Mupirocin 2 No 1{appli QD Mupirocin % % cation} 2 % metFORMIN metFORMIN No 1{table BID metFORMIN HCl 1000 MG HCl 1000 MG t_with_ HCl 1000 a_meal} MG predniSONE predniSONE No 1{table QD predniSONE 20 MG 20 MG t} 20 MG Basaglar Basaglar No Basaglar KwikPen 100 KwikPen 100 KwikPen UNIT/ML UNIT/ML 100 UNIT/ML Ciprofloxac Ciprofloxac No 1{table BID Ciprofloxa in HCl 500 in HCl 500 t} hardik HCl MG MG 500 MG Cholestyram Cholestyram No 1{packe QD Cholestyra ine 4 GM ine 4 GM t_mixed mine 4 GM _with_w ater_or _non-ca rbonate d_drink } hydrALAZINE hydrALAZINE No 1{table TID hydrALAZIN HCl 100 MG HCl 100 MG t_with_ E HCl 100 food} MG Dicyclomine Dicyclomine No Dicyclomin HCl 20 MG HCl 20 MG e HCl 20 MG glipiZIDE glipiZIDE No QD glipiZIDE 10 MG 10 MG 10 MG hydrOXYzine hydrOXYzine No TID hydrOXYzin HCl 25 MG HCl 25 MG e HCl 25 MG Combigan Combigan No Combigan 0.2-0.5 % 0.2-0.5 % 0.2-0.5 % NIFEdipine NIFEdipine No 1{table QD NIFEdipine ER Osmotic ER Osmotic t} ER Osmotic Release 90 Release 90 Release 90 MG MG MG hydrALAZINE hydrALAZINE No hydrALAZIN HCl 100 MG HCl 100 MG E HCl 100 MG Esomeprazol Esomeprazol No 1{capsu QD Esomeprazo e Magnesium e Magnesium le} le 40 MG 40 MG Magnesium 40 MG traZODone traZODone No 1{table QD traZODone HCl 50 MG HCl 50 MG t_at_be HCl 50 MG dtime_a s_neede d} Toujeo Max Toujeo Max No QD Toujeo Max SoloStar SoloStar SoloStar 300 UNIT/ML 300 UNIT/ML 300 UNIT/ML Doxycycline Doxycycline No 1{table BID Doxycyclin Hyclate 100 Hyclate 100 t} e Hyclate MG MG 100 MG glipiZIDE glipiZIDE No glipiZIDE 10 MG 10 MG 10 MG hydroCHLORO hydroCHLORO No 1{table QD hydroCHLOR thiazide 25 thiazide 25 t_in_th Othiazide MG MG e_morni 25 MG ng} Pravastatin Pravastatin No QD Pravastati Sodium 40 Sodium 40 n Sodium MG MG 40 MG Valtrex 1 Valtrex 1 No 1{table QD Valtrex 1 GM GM t} GM metFORMIN metFORMIN No 1{table QD metFORMIN HCl 500 MG HCl 500 MG t_with_ HCl 500 MG a_meal} Mupirocin 2 Mupirocin 2 No 1{appli QD Mupirocin % % cation} 2 % metFORMIN metFORMIN No 1{table BID metFORMIN HCl 1000 MG HCl 1000 MG t_with_ HCl 1000 a_meal} MG predniSONE predniSONE No 1{table QD predniSONE 20 MG 20 MG t} 20 MG Ciprofloxac Ciprofloxac No 1{table BID Ciprofloxa in HCl 500 in HCl 500 t} hardik HCl MG MG 500 MG predniSONE predniSONE No predniSONE 20 MG 20 MG 20 MG Cholestyram Cholestyram No 1{packe QD Cholestyra ine 4 GM ine 4 GM t_mixed mine 4 GM _with_w ater_or _non-ca rbonate d_drink } hydrALAZINE hydrALAZINE No 1{table TID hydrALAZIN HCl 100 MG HCl 100 MG t_with_ E HCl 100 food} MG Dicyclomine Dicyclomine No Dicyclomin HCl 20 MG HCl 20 MG e HCl 20 MG glipiZIDE glipiZIDE No QD glipiZIDE 10 MG 10 MG 10 MG Sildenafil Sildenafil No Sildenafil Citrate 100 Citrate 100 Citrate MG MG 100 MG Combigan Combigan No Combigan 0.2-0.5 % 0.2-0.5 % 0.2-0.5 % NIFEdipine NIFEdipine No 1{table QD NIFEdipine ER Osmotic ER Osmotic t} ER Osmotic Release 90 Release 90 Release 90 MG MG MG Esomeprazol Esomeprazol No 1{capsu QD Esomeprazo e Magnesium e Magnesium le} le 40 MG 40 MG Magnesium 40 MG traZODone traZODone No 1{table QD traZODone HCl 50 MG HCl 50 MG t_at_be HCl 50 MG dtime_a s_neede d} hydrOXYzine hydrOXYzine No TID hydrOXYzin HCl 25 MG HCl 25 MG e HCl 25 MG Solifenacin Solifenacin No 1{table QD Solifenaci Succinate 5 Succinate 5 t} n MG MG Succinate 5 MG Toujeo Max Toujeo Max No QD Toujeo Max SoloStar SoloStar SoloStar 300 UNIT/ML 300 UNIT/ML 300 UNIT/ML Doxycycline Doxycycline No 1{table BID Doxycyclin Hyclate 100 Hyclate 100 t} e Hyclate MG MG 100 MG hydroCHLORO hydroCHLORO No 1{table QD hydroCHLOR thiazide 25 thiazide 25 t_in_th Othiazide MG MG e_morni 25 MG ng} Pravastatin Pravastatin No QD Pravastati Sodium 40 Sodium 40 n Sodium MG MG 40 MG Valtrex 1 Valtrex 1 No 1{table QD Valtrex 1 GM GM t} GM metFORMIN metFORMIN No 1{table BID metFORMIN HCl 1000 MG HCl 1000 MG t_with_ HCl 1000 a_meal} MG metFORMIN metFORMIN No 1{table QD metFORMIN HCl 500 MG HCl 500 MG t_with_ HCl 500 MG a_meal} Mupirocin 2 Mupirocin 2 No 1{appli QD Mupirocin % % cation} 2 % metFORMIN metFORMIN No 1{table BID metFORMIN HCl 1000 MG HCl 1000 MG t_with_ HCl 1000 a_meal} MG predniSONE predniSONE No 1{table QD predniSONE 20 MG 20 MG t} 20 MG Ciprofloxac Ciprofloxac No 1{table BID Ciprofloxa in HCl 500 in HCl 500 t} hardik HCl MG MG 500 MG Cholestyram Cholestyram No 1{packe QD Cholestyra ine 4 GM ine 4 GM t_mixed mine 4 GM _with_w ater_or _non-ca rbonate d_drink } hydrALAZINE hydrALAZINE No 1{table TID hydrALAZIN HCl 100 MG HCl 100 MG t_with_ E HCl 100 food} MG Dicyclomine Dicyclomine No Dicyclomin HCl 20 MG HCl 20 MG e HCl 20 MG hydrOXYzine hydrOXYzine No hydrOXYzin HCl 25 MG HCl 25 MG e HCl 25 MG glipiZIDE glipiZIDE No QD glipiZIDE 10 MG 10 MG 10 MG Sildenafil Sildenafil No Sildenafil Citrate 100 Citrate 100 Citrate MG MG 100 MG Combigan Combigan No Combigan 0.2-0.5 % 0.2-0.5 % 0.2-0.5 % NIFEdipine NIFEdipine No 1{table QD NIFEdipine ER Osmotic ER Osmotic t} ER Osmotic Release 90 Release 90 Release 90 MG MG MG Esomeprazol Esomeprazol No 1{capsu QD Esomeprazo e Magnesium e Magnesium le} le 40 MG 40 MG Magnesium 40 MG traZODone traZODone No 1{table QD traZODone HCl 50 MG HCl 50 MG t_at_be HCl 50 MG dtime_a s_neede d} hydrOXYzine hydrOXYzine No TID hydrOXYzin HCl 25 MG HCl 25 MG e HCl 25 MG Immunizations Ordered Filled Immunization Date Status Comments Sourc e Immunization Name Name Flucelvax - Flucelvax - 2021-07-31 Completed [facility] multidose vial multidose vial 17:04:00 - [facility] Flucelvax - Flucelvax - 2021-07-31 Completed [facility] multidose vial multidose vial 17:04:00 - [facility] Flucelvax - Flucelvax - 2021-07-31 Completed [facility] multidose vial multidose vial 17:04:00 - [facility] Flucelvax - Flucelvax - 2021-07-31 Completed [facility] multidose vial multidose vial 17:04:00 - [facility] Flucelvax - Flucelvax - 2021-07-31 Completed [facility] multidose vial multidose vial 17:04:00 - [facility] Flucelvax - Flucelvax - 2021-07-31 Completed [facility] multidose vial multidose vial 17:04:00 - [facility] Flucelvax - Flucelvax - 2021-07-31 Completed [facility] multidose vial multidose vial 17:04:00 - [facility] Flucelvax - Flucelvax - 2021-07-31 Completed [facility] multidose vial multidose vial 17:04:00 - [facility] Flucelvax - Flucelvax - 2021-07-31 Completed [facility] multidose vial multidose vial 17:04:00 - [facility] Flucelvax - Flucelvax - 2021-07-31 Completed [facility] multidose vial multidose vial 17:04:00 - [facility] Flucelvax - Flucelvax - 2021-07-31 Completed [facility] multidose vial multidose vial 17:04:00 - [facility] Flucelvax - Flucelvax - 2021-07-31 Completed [facility] multidose vial multidose vial 17:04:00 - [facility] Flucelvax - Flucelvax - 2021-07-31 Completed [facility] multidose vial multidose vial 17:04:00 - [facility] Flucelvax - Flucelvax - 2021-07-31 Completed [facility] multidose vial multidose vial 17:04:00 - [facility] Flucelvax - Flucelvax - 2021-07-31 Completed [facility] multidose vial multidose vial 17:04:00 - [facility] Flucelvax - Flucelvax - 2021-07-31 Completed [facility] multidose vial multidose vial 17:04:00 - [facility] Flucelvax - Flucelvax - 2021-07-31 Completed [facility] multidose vial multidose vial 17:04:00 - [facility] Flucelvax - Flucelvax - 2021-07-31 Completed [facility] multidose vial multidose vial 17:04:00 - [facility] Flucelvax - Flucelvax - 2021-07-31 Completed [facility] multidose vial multidose vial 17:04:00 - [facility] Flucelvax - Flucelvax - 2021-07-31 Completed [facility] multidose vial multidose vial 17:04:00 - [facility] Flucelvax - Flucelvax - 2021-07-31 Completed [facility] multidose vial multidose vial 17:04:00 - [facility] Flucelvax - Flucelvax - 2021-07-31 Completed [facility] multidose vial multidose vial 17:04:00 - [facility] Flucelvax - single Flucelvax - single 2019-05-05 Completed [facility] dose syringe dose syringe 17:06:00 - [facility] Flucelvax - single Flucelvax - single 2019-05-05 Completed [facility] dose syringe dose syringe 17:06:00 - [facility] Flucelvax - single Flucelvax - single 2019-05-05 Completed [facility] dose syringe dose syringe 17:06:00 - [facility] Flucelvax - single Flucelvax - single 2019-05-05 Completed [facility] dose syringe dose syringe 17:06:00 - [facility] Flucelvax - single Flucelvax - single 2019-05-05 Completed [facility] dose syringe dose syringe 17:06:00 - [facility] Flucelvax - single Flucelvax - single 2019-05-05 Completed [facility] dose syringe dose syringe 17:06:00 - [facility] Flucelvax - single Flucelvax - single 2019-05-05 Completed [facility] dose syringe dose syringe 17:06:00 - [facility] Flucelvax - single Flucelvax - single 2019-05-05 Completed [facility] dose syringe dose syringe 17:06:00 - [facility] Flucelvax - single Flucelvax - single 2019-05-05 Completed [facility] dose syringe dose syringe 17:06:00 - [facility] Flucelvax - single Flucelvax - single 2019-05-05 Completed [facility] dose syringe dose syringe 17:06:00 - [facility] Flucelvax - single Flucelvax - single 2019-05-05 Completed [facility] dose syringe dose syringe 17:06:00 - [facility] Flucelvax - single Flucelvax - single 2019-05-05 Completed [facility] dose syringe dose syringe 17:06:00 - [facility] Flucelvax - single Flucelvax - single 2019-05-05 Completed [facility] dose syringe dose syringe 17:06:00 - [facility] Flucelvax - single Flucelvax - single 2019-05-05 Completed [facility] dose syringe dose syringe 17:06:00 - [facility] Flucelvax - single Flucelvax - single 2019-05-05 Completed [facility] dose syringe dose syringe 17:06:00 - [facility] Flucelvax - single Flucelvax - single 2019-05-05 Completed [facility] dose syringe dose syringe 17:06:00 - [facility] Flucelvax - single Flucelvax - single 2019-05-05 Completed [facility] dose syringe dose syringe 17:06:00 - [facility] Flucelvax - single Flucelvax - single 2019-05-05 Completed [facility] dose syringe dose syringe 17:06:00 - [facility] Flucelvax - single Flucelvax - single 2019-05-05 Completed [facility] dose syringe dose syringe 17:06:00 - [facility] Flucelvax - single Flucelvax - single 2019-05-05 Completed [facility] dose syringe dose syringe 17:06:00 - [facility] Flucelvax - single Flucelvax - single 2019-05-05 Completed [facility] dose syringe dose syringe 17:06:00 - [facility] Flucelvax - single Flucelvax - single 2019-05-05 Completed [facility] dose syringe dose syringe 17:06:00 - [facility] Flucelvax - single Flucelvax - single 2019-05-05 Completed [facility] dose syringe dose syringe 17:06:00 - [facility] Flucelvax - Flucelvax - Unknown Completed [facility]ose [facility] multidose vial - [facility] Flucelvax - single Flucelvax - single Unknown Completed [facility] dose syringe dose syringe - [facility] Flucelvax - Flucelvax - Unknown Completed [facility] multidose vial - [facility] Flucelvax - single Flucelvax - single Unknown Completed [facility] dose syringe dose syringe - [facility] Flucelvax - Flucelvax - Unknown Completed [facility] multidose vial - [facility] Flucelvax - single Flucelvax - single Unknown Completed [facility] dose syringe dose syringe - [facility] Flucelvax - Flucelvax - Unknown Completed [facility] multidose vial - [facility] Flucelvax - single Flucelvax - single Unknown Completed [facility] dose syringe dose syringe - [facility] Flucelvax - Flucelvax - Unknown Completed [facility] multidose [facility] multidose vial - [facility] Flucelvax - single Flucelvax - single Unknown Completed [facility] dose syringe dose syringe - [facility] Flucelvax - Flucelvax - Unknown Completed [facility] multidose vial - [facility] Flucelvax - single Flucelvax - single Unknown Completed [facility] dose syringe dose syringe - [facility] Flucelvax - Flucelvax - Unknown Completed [facility]ose [facility] multidose vial - [facility] Flucelvax - single Flucelvax - single Unknown Completed [facility] dose syringe dose syringe - [facility] Vital Signs Vital Name Observation Time Observation Value Comments Source height 2022-09-15 16:00:00 73 [in_i] [facility] weight 2022-09-15 16:00:00 227.8 [lb_av] [facility] - [facility] temperature 2022-09-15 16:00:00 97.3 [degF] [facility] bmi 2022-09-15 16:00:00 30.05 kg/m2 [facility] oximetry 2022-09-15 16:00:00 95 % [facility] respiratory rate 2022-09-15 16:00:00 16 /min Comm on [facility] blood pressure 2022-09-15 16:00:00 134 mm[Hg] [facility] - systolic [facility] blood pressure 2022-09-15 16:00:00 79 mm[Hg] [facility] - diastolic [facility] height 2022-09-15 16:00:00 73 [in_i] [facility] weight 2022-09-15 16:00:00 227.8 [lb_av] [facility] temperature 2022-09-15 16:00:00 97.3 [degF] [facility] bmi 2022-09-15 16:00:00 30.05 kg/m2 [facility] oximetry 2022-09-15 16:00:00 95 % [facility] respiratory rate 2022-09-15 16:00:00 16 /min Comm on [facility] blood pressure 2022-09-15 16:00:00 134 mm[Hg] [facility] - systolic [facility] blood pressure 2022-09-15 16:00:00 79 mm[Hg] [facility] - diastolic [facility] height 2022-09-03 17:00:00 73 [in_i] [facility] weight 2022-09-03 17:00:00 225.4 [lb_av] [facility] temperature 2022-09-03 17:00:00 98.6 [degF] [facility] bmi 2022-09-03 17:00:00 29.73 kg/m2 [facility] oximetry 2022-09-03 17:00:00 99 % [facility] respiratory rate 2022-09-03 17:00:00 18 /min Comm on [facility] blood pressure 2022-09-03 17:00:00 136 mm[Hg] [facility] - systolic [facility] blood pressure 2022-09-03 17:00:00 80 mm[Hg] [facility] - diastolic [facility] height 2022-06-16 16:00:00 73 [in_i] [facility] S [facility] weight 2022-06-16 16:00:00 220 [lb_av] [facility] temperature 2022-06-16 16:00:00 97.5 [degF] [facility] bmi 2022-06-16 16:00:00 29.02 kg/m2 [facility] oximetry 2022-06-16 16:00:00 96 % [facility] S [facility] respiratory rate 2022-06-16 16:00:00 16 /min Comm on [facility] blood pressure 2022-06-16 16:00:00 160 mm[Hg] [facility] - systolic [facility] blood pressure 2022-06-16 16:00:00 90 mm[Hg] [facility] - diastolic [facility] blood pressure 2021-07-18 17:00:00 91 mm[Hg] [facility] - diastolic [facility] height 2021-07-18 17:00:00 73 [in_i] Common S [facility] weight 2021-07-18 17:00:00 225 [lb_av] [facility] temperature 2021-07-18 17:00:00 97.9 [degF] [facility] bmi 2021-07-18 17:00:00 29.68 kg/m2 [facility] S [facility] oximetry 2021-07-18 17:00:00 99 % [facility] respiratory rate 2021-07-18 17:00:00 18 /min Comm on [facility] blood pressure 2021-07-18 17:00:00 146 mm[Hg] Common [facility] systolic [facility] Procedures This patient has no known procedures. Encounters Start End Encounter Admission Attending Care Care Encounter Source Date/Time Date/Time Type Type Clinicians Facility Department ID 2023-01-13 [place] STLMLC [id number] Common 08:24:01 Mary [id number] [facility] 2022-12-16 [place] [place] STL[facility]C STLMLC [id number] Common 14:33:02 Mary [id number] [facility] 2022-11-11 [facility] [place], STLMLC STLMLC [id number] Common 08:03:02 Mary [id number] [facility] 2022-10-13 [place] [place], STLMLC STLMLC [id number] Common 15:31:02 Mary [id number] [facility] 2022-09-16 [place] [place], STLMLC STLMLC [id number] Common 11:26:01 Mary [id number] [facility] 2022-09-11 [facility] [place], STLMLC STLMLC [id number] Common 09:33:00 Mary [id number] [facility] 2022-06-13 [facility] [place], STLMLC STLMLC [id number] Common 09:11:01 Mary [id number] [facility] 2022-03-27 [place] [place], STLMLC STLMLC [id number] Common 11:28:02 Mary [facility] 2022-03-17 [facility] [place], STLMLC STLMLC [id number] Common 09:41:01 Mary [facility] 2022-03-11 [place] [place], STLMLC STLMLC [id number] Common 11:41:02 Mary [facility] 2022-03-06 [facility] [place], STLMLC STLMLC [id number] Common 14:55:01 Mary [facility] 2022-02-24 [facility] [place], STLMLC STLMLC [id number] Common 08:36:04 Mary [facility] 2022-02-07 [facility] [place], STLMLC STLMLC [id number] Common 11:10:02 Mary [facility] 2021-12-23 [facility] [place], STLMLC STLMLC [id number] Common 16:24:01 Mary [facility] 2021-10-21 [facility] [place], STLMLC STLMLC [id number] Common 14:49:01 Mary [facility] 2021-09-04 [facility] [place], STLMLC STLMLC [id number] Common 14:26:58 Mary [facility] 2021-09-04 [facility] [place], STLMLC STLMLC [id number] Common 14:23:10 Mary [id number] [facility] 2022-12-25 2022-12-25 (TEL) STLMLC STLMLC [id number] Co mmon 00:00:00 00:00:00 [facility] 2022-12-16 2022-12-16 (TEL) STLMLC STLMLC [id number] Co mmon 00:00:00 00:00:00 [facility] 2022-10-21 2022-10-21 (TEL) STLMLC STLMLC [id number] Co mmon 00:00:00 00:00:00 [facility] 2022-10-13 2022-10-13 (TEL) STLMLC STLMLC [id number] Co mmon 00:00:00 00:00:00 [facility] 2022-09-30 2022-09-30 ([place]) Nurse STLMLC STLMLC [id number] Common 00:00:00 00:00:00 Visit [facility] 2022-09-17 2022-09-17 (TEL) STLMLC STLMLC [id number] Co mmon 00:00:00 00:00:00 [facility] 2022-09-15 2022-09-15 OFFICE STLMLC STLMLC [id number] Co mmon 00:00:00 00:00:00 [facility] ESTAB PT - CHI LEVEL 4 [facility] 2022-09-15 2022-09-15 INIT STLMLC STLMLC [id number] Co mmon 00:00:00 00:00:00 ANNUAL MCR Spi rit WELLNESS - CHI VISIT [facility] 2022-09-10 2022-09-10 (TEL) STLMLC STLMLC [id number] Co mmon 00:00:00 00:00:00 [facility] 2022-09-03 2022-09-03 OFFICE STLMLC STLMLC [id number] Co mmon 00:00:00 00:00:00 VISIT EST [facility] it PT LEVEL 3 [facility] 2022-07-29 2022-07-29 (TEL) STLMLC STLMLC [id number] Co mmon 00:00:00 00:00:00 [facility] 2022-07-22 2022-07-22 ([place]) Nurse STLMLC STLMLC [id number] Common 00:00:00 00:00:00 Visit [facility] 2022-07-15 2022-07-15 ([place]) Nurse STLMLC STLMLC [id number] Common 00:00:00 00:00:00 Visit [facility] 2022-07-09 2022-07-09 (TEL) STLMLC STLMLC [id number] Co mmon 00:00:00 00:00:00 [facility] 2022-07-08 2022-07-08 ([place]) Nurse STLMLC STLMLC [id number] Common 00:00:00 00:00:00 Visit [facility] 2022-07-01 2022-07-01 (TEL) STLMLC STLMLC [id number] Co mmon 00:00:00 00:00:00 [facility] 2022-07-01 2022-07-01 ([place]) Nurse STLMLC STLMLC [id number] Common 00:00:00 00:00:00 Visit [facility] 2022-06-26 2022-06-26 (TEL) STLMLC STLMLC [id number] Co mmon 00:00:00 00:00:00 [facility] 2022-06-25 2022-06-25 (TEL) STLMLC STLMLC [id number] Co mmon 00:00:00 00:00:00 [facility] 2022-06-24 2022-06-24 ([place]) Nurse STLMLC STLMLC [id number] Common 00:00:00 00:00:00 Visit [facility] 2022-06-17 2022-06-17 ([place]) Nurse STLMLC STLMLC [id number] Common 00:00:00 00:00:00 Visit [facility] 2022-06-16 2022-06-16 OFFICE STLMLC STLMLC [id number] Co mmon 00:00:00 00:00:[address] [facility] 4 [facility] 2022-06-10 2022-06-10 ([place]) Nurse STLMLC STLMLC [id number] Common 00:00:00 00:00:00 Visit [facility] 2022-06-03 2022-06-03 ([place]) Nurse STLMLC STLMLC [id number] Common 00:00:00 00:00:00 Visit [facility] 2022-05-27 2022-05-27 ([place]) Nurse STLMLC STLMLC [id number] Common 00:00:00 00:00:00 Visit [facility] 2022-05-20 2022-05-20 ([place]) Nurse STLMLC STLMLC [id number] Common 00:00:00 00:00:00 Visit [facility] 2022-05-13 2022-05-13 ([place]) Nurse STLMLC STLMLC [id number] Common 00:00:00 00:00:00 Visit [facility] 2022-05-06 2022-05-06 ([place]) Nurse STLMLC STLMLC [id number] Common 00:00:00 00:00:00 Visit [facility] 2022-04-21 2022-04-21 ambulatory STLMLC STLMLC [id number] Common 00:00:00 00:00:00 [facility] 2022-03-31 2022-03-31 ambulatory STLMLC STLMLC [id number] Common 00:00:00 00:00:00 [facility] 2022-03-20 2022-03-20 ambulatory STLMLC STLMLC [id number] Common 00:00:00 00:00:00 [facility] 2022-03-17 2022-03-17 ambulatory STLMLC STLMLC [id number] Common 00:00:00 00:00:00 [facility] 2022-03-14 2022-03-14 ambulatory STLMLC STLMLC [id number] Common 00:00:00 00:00:00 [facility] 2022-03-13 2022-03-13 ambulatory STLMLC STLMLC [id number] Common 00:00:00 00:00:00 [facility] 2022-03-11 2022-03-11 ambulatory STLMLC STLMLC [id number] Common 00:00:00 00:00:00 [facility] 2022-03-06 2022-03-06 ambulatory STLMLC STLMLC [id number] Common 00:00:00 00:00:00 [facility] 2022-02-26 2022-02-26 ambulatory STLMLC STLMLC [id number] Common 00:00:00 00:00:00 [facility] 2022-02-07 2022-02-07 ambulatory STLMLC STLMLC [id number] Common 00:00:00 00:00:00 [facility] 2021-12-20 2021-12-20 ambulatory STLMLC STLMLC [id number] Common 00:00:00 00:00:00 [facility] 2021-11-122021-11-12 ambulatory STLMLC STLMLC [id number] Common 00:00:00 00:00:00 [facility] 2021-10-16 2021-10-16 ambulatory STLMLC STLMLC [id number] Common 00:00:00 00:00:00 [facility] 2021-07-31 2021-07-31 ambulatory STLMLC STLMLC [id number] Common 00:00:00 00:00:00 [facility] 2021-07-24 2021-07-24 (TEL) STLMLC STLMLC [id number] Co mmon 00:00:00 00:00:00 [facility] 2021-07-18 2021-07-18 OFFICE STLMLC STLMLC [id number] Co mmon 00:00:00 00:00:00 VISIT [facility] PT LEVEL 3 - [facility] Results Test Description Test Time Test Comments Results Result Comments Source HEMOGLOBIN A1C 2022-06-16 00:00:00 Test Item Value Reference Range Interpretation Comme nts A1C (test code = 4548-4) 9.4
[2023-07-04 04:24] LABS: Absolute Lymphocytes (CBC) 0.5 K/uL (0.7-4.9); Hematocrit 40.9 % (39.6-49.0); Lymphocytes % 4.6 % (15.3-44.8); MCV 87.2 fL (80-100); MPV 8.5 fL (7.6-11.3); Platelets 190 thou/uL (152-406); RBC Red Blood Cell Count 4.68 M/uL (4.33-5.43)
[2023-07-04] MEDS ORDERED: TRAMADOL HCL 50 MG TAB ONE (04:35)
[2023-07-04 04:39] LABS: SARS-CoV-2 Antigen Rapid Res Negative (Negative)
[2023-07-04 04:46] LABS: Potassium 3.3 mEq/L (3.5-5.1)
[2023-07-04] MEDS ORDERED: OSELTAMIVIR 75 MG CAP PO ONE (05:03)
--- NOTE | 2023-07-04 05:43 | ER ---
Nurse's Notes [facility] Name: Neftali Gill Jr Age: 68 yrs Sex: Male : 1955 Arrival Date: 07/04/2023 Time: 03:37 Bed 14 Private MD: Diagnosis: Influenza due to identified novel influenza A virus with other respiratory manifestations Presentation: 07/04 03:54 Chief complaint: Patient states: chest pain when coughing. cough started today. denies rv fever. Coronavirus screen: Client presents with at least one sign or symptom that may indicate coronavirus-19. Standard/surgical mask placed on the client. Provider contacted for isolation considerations. Ebola Screen: No symptoms or risks identified at this time. Initial Sepsis Screen: Does the patient meet any 2 criteria? No. Patient's initial sepsis screen is negative. Does the patient have a suspected source of infection? No. Patient's initial sepsis screen is negative. Risk Assessment: Do you want to hurt yourself or someone else? Patient reports no desire to harm self or others. Onset of symptoms was July 04, 2023. 03:54 Acuity: DUNCAN 2 rv 03:54 Method Of Arrival: Ambulatory rv Triage Assessment: 03:56 General: Appears comfortable, Behavior is calm, cooperative. Pain: Complains of pain in rv chest. Neuro: Level of Consciousness is awake, alert, obeys commands, Oriented to person, place, time, situation. Cardiovascular: Capillary refill < 3 seconds Patient's skin is warm and dry. Cardiovascular: Chest pain is located in anterior chest wall. Respiratory: Airway is patent Respiratory effort is even, unlabored. GI: No signs and/or symptoms were reported involving the gastrointestinal system. : No signs and/or symptoms were reported regarding the genitourinary system. Derm: Skin is intact. Historical: - Allergies: 03:56 ACES; rv 03:56 Cephalexin; rv 03:56 Diovan; rv 03:56 Lisinopril; rv 03:56 nebivolol HCl; rv 03:56 NSAIDS; rv 03:56 valsartan; rv - PMHx: 03:56 ANGIOEDEMA; Hypertension; GERD; High Cholesterol; NIDDM; rv - PSHx: 03:56 Cholecystectomy; TURP; rv - Immunization history:: Adult Immunizations up to date. - Social history:: Smoking status: Patient denies any tobacco usage or history of. - Family history:: not pertinent. - Hospitalizations: : No recent hospitalization is reported. Screenin:57 [facility] ED Fall Risk Assessment (Adult) History of falling in the last 3 months, rv including since admission No falls in past 3 months (0 pts) Score/Fall Risk Level 0 - 2 = Low Risk Oriented to surroundings, Maintained a safe environment, Educated pt \\T\\ family on fall prevention, incl call for assistance when getting out of bed, Assessed \\T\\ reinforced patient's understanding of fall precautions. Abuse screen: Denies threats or abuse. Denies injuries from another. Nutritional screening: No deficits noted. Tuberculosis screening: No symptoms or risk factors identified. Assessment: 03:50 General: Appears uncomfortable, Behavior is calm, cooperative. Pain: Complains of pain ha1 in chest when couging Pain does not radiate. Pain currently is 8 out of 10 on a pain scale. Neuro: Level of Consciousness is awake, alert, obeys commands, Oriented to person, place, time, situation. Neuro: Reports headache in entire. Cardiovascular: Heart tones S1 S2 present Capillary refill < 3 seconds Patient's skin is warm and dry. Rhythm is sinus rhythm. Respiratory: Reports cough that is non-productive, pain with cough Airway is patent Respiratory effort is even, unlabored, Respiratory pattern is regular, symmetrical, Breath sounds are clear bilaterally. GI: No signs and/or symptoms were reported involving the gastrointestinal system. Abdomen is round non-distended. Musculoskeletal: Circulation, motion, and sensation intact. Range of motion: intact in all extremities. 04:56 Reassessment: Patient and/or family updated on plan of care and expected duration. Pain ha1 level reassessed. Patient is alert, oriented x 3, equal unlabored respirations, skin warm/dry/pink. Patient states feeling better. Patient states symptoms have improved. 05:50 Reassessment: Patient and/or family updated on plan of care and expected duration. Pain ha1 level reassessed. Patient is alert, oriented x 3, equal unlabored respirations, skin warm/dry/pink. 05:58 Reassessment: provided education on medication administration and blood pressure ha1 management. Vital Signs: 03:54 BP 184 / 84; Pulse 82; Resp 18; Temp 98; Pulse Ox 99% ; Weight 99 kg; Height 6 ft. 1 rv in. ; 04:00 BP 178 / 91; Pulse 82; Resp 17 S; Pulse Ox 98% on R/A; ha1 04:30 BP 176 / 92; Pulse 81; Resp 17 S; Pulse Ox 99% on R/A; ha1 05:57 BP 170 / 92; Pulse 80; Resp 17 S; Pulse Ox 99% on R/A; ha1 03:54 Body Mass Index 28.80 (99.00 kg, 185.42 cm) rv ED Course: 03:46 Patient arrived in ED. gm2 03:47 Magen Palacios MD is Attending Physician. rn 03:56 Triage completed. rv 03:56 Arm band placed on right wrist. rv 03:57 Patient has correct armband on for positive identification. Client placed on continuous rv cardiac and pulse oximetry monitoring. NIBP monitoring applied. lunchroom monitor on. 03:57 No provider procedures requiring assistance completed. Patient maintains SpO2 rv saturation greater than 95% on room air. 04:05 Inserted saline lock: 20 gauge in right antecubital area, using aseptic technique. ha1 Blood collected. 04:15 Sarah Corey, RN is Primary Nurse. ha1 04:15 Flu Sent. ha1 04:15 SARS RAPID Sent. ha1 04:15 Troponin High Sensitivity Sent. ha1 04:15 Basic Metabolic Panel Sent. ha1 04:15 CBC with Diff Sent. ha1 04:15 BNP Sent. ha1 04:45 XRAY Chest Pa And Lat (2 Views) In Process Unspecified. EDMS 05:59 Provided Education on: blood pressure management. pt. states " I going home to take my ha1 morning medication for my blood pressure". 05:59 IV discontinued, intact, bleeding controlled, No redness/swelling at site. Pressure ha1 dressing applied. Administered Medications: 04:25 Drug: traMADol PO 50 mg PO once Route: PO; ha1 05:00 Follow up: Response: No adverse reaction; Pain is decreased ha1 04:52 Drug: Oseltamivir PO 75 mg PO once Route: PO; ha1 05:52 Follow up: Response: No adverse reaction ha1 Medication: 03:57 VIS not applicable for this client. rv Outcome: 05:42 Discharge ordered by . rn 05:59 Discharged to home ambulatory, ha1 05:59 Condition: stable 05:59 Discharge instructions given to patient, Instructed on discharge instructions, follow up and referral plans. Demonstrated understanding of instructions, follow-up care, 06:01 Patient left the ED. ha1 Signatures: Dispatcher [employer] Magen You MD MD rn Vicente, Ronaldo, RN RN rv Ayala, Heidy, RN RN ha1 Deb Pedroza [facility]
--- NOTE | 2023-07-04 05:43 | EDPHYS ---
Physician Documentation [facility] Name: Neftali Gill Jr Age: 68 yrs Sex: Male : 1955 Arrival Date: 07/04/2023 Time: 03:37 Bed 14 Private MD: ED Physician Magen Palacios HPI: 07/04 03:59 This 68 yrs old Black Male presents to ER via Ambulatory with complaints of Chest Pain, rn Cough. 03:59 The patient or guardian reports chest pain that is located primarily in the chest rn diffusely. Onset: today. The pain does not radiate. Associated signs and symptoms: Pertinent positives: cough, Pertinent negatives: abdominal pain, palpitations, shortness of breath, syncope, vomiting. The chest pain is described as aching. Duration: The patient or guardian reports multiple episodes, that are intermittent. Modifying factors: The symptoms are alleviated by nothing. the symptoms are aggravated by cough. Severity of pain: At its worst the pain was mild in the emergency department the pain is unchanged. The patient has not experienced similar symptoms in the past. Patient reports cough and chest pain that began earlier today. Denies fever but reports feeling sick. Tried cough and cold medication did not make the pain go away so came in to make sure he was okay. No history of myocardial infarction or cardiac problems other than hypertension. No trauma. No hemoptysis. No history of DVT or PE. Reports myalgias as well.. Historical: - Allergies: 03:56 ACES; rv 03:56 Cephalexin; rv 03:56 Diovan; rv 03:56 Lisinopril; rv 03:56 nebivolol HCl; rv 03:56 NSAIDS; rv 03:56 valsartan; rv - PMHx: 03:56 ANGIOEDEMA; Hypertension; GERD; High Cholesterol; NIDDM; rv - PSHx: 03:56 Cholecystectomy; TURP; rv - Immunization history:: Adult Immunizations up to date. - Social history:: Smoking status: Patient denies any tobacco usage or history of. - Family history:: not pertinent. - Hospitalizations: : No recent hospitalization is reported. ROS: 03:59 Constitutional: Positive for chills Eyes: Negative for injury, pain, redness, and rn first assist, Cardiovascular: Positive for chest pain with cough Respiratory: Positive for cough, negative for shortness of breath Abdomen/GI: Negative for abdominal pain, nausea, vomiting, diarrhea, and constipation, MS/Extremity: Negative for injury and deformity, Skin: Negative for injury, rash, and discoloration, Neuro: Positive for headache and generalized weakness and myalgias Exam: 03:59 Constitutional: This is a well developed, well nourished patient who is awake, alert, rn and in no acute distress. Neck: Trachea midline, no masses palpated, and no cervical lymphadenopathy. Supple, full range of motion without nuchal rigidity, or vertebral point tenderness. No Meningismus. Cardiovascular: Regular rate and rhythm. No pulse deficits. Respiratory: Clear bilateral breath sounds. No retractions Abdomen/GI: Soft, nontender Skin: Warm, dry MS/ Extremity: Pulses equal, no cyanosis. Equal circumference bilateral lower extremities Neuro: Awake and alert, GCS 15 05:07 ECG was reviewed by the Attending Physician. rn Vital Signs: 03:54 BP 184 / 84; Pulse 82; Resp 18; Temp 98; Pulse Ox 99% ; Weight 99 kg; Height 6 ft. 1 rv in. ; 04:00 BP 178 / 91; Pulse 82; Resp 17 S; Pulse Ox 98% on R/A; ha1 04:30 BP 176 / 92; Pulse 81; Resp 17 S; Pulse Ox 99% on R/A; ha1 05:57 BP 170 / 92; Pulse 80; Resp 17 S; Pulse Ox 99% on R/A; ha1 03:54 Body Mass Index 28.80 (99.00 kg, 185.42 cm) rv MDM: 03:47 Patient medically screened. rn 05:41 Differential diagnosis: acute pericarditis, anxiety, chest wall pain, costochondritis, rn esophagitis, gastritis, pericarditis, pleurisy, pneumonia, pneumothorax. Data reviewed: vital signs, nurses notes, lab test result(s), EKG, radiologic studies, plain films, and as a result, I will discharge patient. Independent interpretation of the following test(s) in the Emergency Department EKG: See my EKG interpretation above X-Ray: My interpretation is Chest x-ray images negative for pneumonia or pneumothorax per my interpretation. Care significantly affected by the following chronic conditions: Diabetes, Hypertension. Counseling: I had a detailed discussion with the patient and/or guardian regarding the historical points, exam findings, and any diagnostic results supporting the discharge/admit diagnosis, lab results, radiology results, the need for outpatient follow up, to return to the emergency department if symptoms worsen or persist or if there are any questions or concerns that arise at home. Response to treatment: the patient's symptoms have mildly improved after treatment, and as a result, I will discharge patient. Special discussion: I discussed with the patient/guardian in detail that at this point there is no indication for admission to the hospital. It is understood, however, that if the symptoms persist or worsen the patient needs to return immediately for re-evaluation. ED course: I have personally reviewed all of the results, including but not limited to blood tests and imaging deemed necessary to safely discharge this patient at this time. All results given to and printed out for patient. I personally went over all the results with the patient and answered all questions. Patient will follow-up with PCP and or specialist as discussed. Return precautions given and understood.. 07/04 03:57 Order name: SARS RAPID; Complete Time: 04:47 07/04 03:57 Order name: Flu; Complete Time: 04:47 07/04 03:59 Order name: CBC with Diff 07/04 03:59 Order name: Basic Metabolic Panel; Complete Time: 04:47 07/04 03:59 Order name: Troponin High Sensitivity; Complete Time: 04:47 07/04 03:59 Order name: BNP; Complete Time: 04:47 07/04 03:48 Order name: XRAY Chest Pa And Lat (2 Views) 07/04 03:57 Order name: EKG; Complete Time: 03:58 07/04 03:57 Order name: EKG - Nurse/Tech; Complete Time: 04:15 07/04 03:59 Order name: IV Start; Complete Time: 04:15 rn EC:07 Rate is 82 beats/min. Rhythm is regular. QRS [place] is Normal. DE interval is normal. QRS rn interval is normal. QT interval is normal. No Q waves. T waves are Normal. No ST changes noted. Clinical impression: Normal ECG. Interpreted by me. Reviewed by me. Administered Medications: 04:25 Drug: traMADol PO 50 mg PO once Route: PO; ha1 05:00 Follow up: Response: No adverse reaction; Pain is decreased ha1 04:52 Drug: Oseltamivir PO 75 mg PO once Route: PO; ha1 05:52 Follow up: Response: No adverse reaction ha1 Disposition Summary: 07/04/23 05:42 Discharge Ordered Notes: Location: Home rn Problem: new rn Symptoms: have improved rn Condition: Stable rn Diagnosis - Influenza due to identified novel influenza A virus with other respiratory rn manifestations Followup: rn - With: Private Physician - When: As needed - Reason: Recheck today's complaints, Re-evaluation by your physician Discharge Instructions: - Discharge Summary Sheet rn - Influenza, Adult rn Forms: - Medication Reconciliation Form rn - Thank You Letter rn - Antibiotic e learning developer - Prescription Opioid Use rn - Patient Portal Instructions rn - Leadership Thank You Letter rn Prescriptions: - Tamiflu 75 mg Oral capsule - take 1 tablet ORAL route every 12 hours for 5 days; 10 tablet; Refills: 0, rn Product Selection Permitted Signatures: Dispatcher [employer] Magen You MD MD rn Vicente, Ronaldo, RN RN rv Ayala, Heidy RN RN ha1
[2023-07-04 06:06] VITALS: TEMP 98
[2023-07-04 06:09] VITALS: O2SAT 99
[2023-07-04 06:11] VITALS: BP 170/92
[2023-07-04 08:10] LABS: Blood Morphology Comment NOT SEEN (NOT SEEN); Platelet Estimate ADEQ; White Blood Cell Scan OK (OK)
--- NOTE | 2023-07-06 12:47 | RAD REPORT ---
EXAM DESCRIPTION: Chest Pa And Lat (2 Views) CLINICAL HISTORY: Chest pain;Cough COMPARISON: None TECHNIQUE: PA and lateral views of the chest. FINDINGS: Lung volumes adequate. Cardiac silhouette is normal in size. No pneumothorax. No large pleural effusion. No focal consolidation. No acute bony finding. IMPRESSION: No evidence of acute cardiopulmonary disease. 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 The interpreting r adiologist is fully responsible for the content of the report.
--- NOTE | 2023-07-06 16:54 | EKG ---
Test Date: 2023-07-04 Test Time: 03:58:02 Shuttle Threader: ELISABETH MEASUREMENT RESULTS: Intervals: Rate: 82 DC: 152 QRSD: 86 QT: 354 QTc: 413 Vicco: P: 80 DC: 152 QRS: -16 T: 59 INTERPRETIVE STATEMENTS: Normal sinus rhythm Normal ECG Compared to ECG 01/30/2023 20:28:14 Ventricular premature complex(es) no longer present T-wave abnormality no longer present Electronically Signed On 07-06-23 16:52:00 ELECTRICIAN ASSISTANT by Don Nguyen
== END 2023-07-04 06:01 | disposition home or self-care (01) ==
LOC: ER 03:37
DX: J10.1 Influenza due to other identified influenza virus with other respiratory manifestations (principal); Z11.52 Encounter for screening for COVID-19; Z88.6 Allergy status to analgesic agent; Z88.8 Allergy status to other drugs, medicaments and biological substances
CPT/HCPCS: 36415; 71046; 80048; 83880; 84484; 85025; 87804; 87811; 93005; 99285

== ENCOUNTER 2023-11-01 06:42 | Observation (INO) | payer OTHER ==
--- OUTSIDE RECORDS SUMMARY | 2023-11-01 06:52 | XMS REPORT | Continuity of Care Document ---
Author Name Unknown Address [address] [place] [address] [facility] Address 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 Name Role Phone Mary Alberto Attending Clinician Unavailable Payers Payer Name Policy Type Policy Number Effective Date Expirati on Date Source [facility] 111 [id number] 2022 00:00:00 [facility] Problems Condition Name Condition Details Condition Category Status Onset Date Resolution Date Last Treatment Date Treating Clinician Comments Source [id number] Detrusor instabilit y Problem [facility] [id number] Urge incontinen ce Problem [facility] [id number] BMI 28.0-28.9, adult Problem [facility] [id number] Diarrhea, functional Problem [facility] [id number] Primary insomnia Problem [facility] [id number] Lumbar back pain with radiculopa thy affecting lower extremity Problem [facility] [id number] Disorder of urinary system, unspecifie d Problem Common [facility] Frequency Frequency Problem Comm on [facility] [id number] Right upper quadrant abdominal pain Problem [facility] Seasonal allergic rhinitis Seasonal allergic reaction Problem [facility] Peripheral neuropathy Peripheral neuropathy Problem [facility] Disturbanc e of skin sensation Disturbanc e of skin sensation Problem [facility] Angioedema Angioedema Problem Co mmon [facility] Hypertensi on Hypertensi on Problem [facility] [id number] Wound of skin Problem [facility] [id number] S/P TURP (status post transureth ral resection of prostate) Problem [facility] [id number] Dysuria Problem [facility] [id number] Type 2 diabetes mellitus with other diabetic kidney complicati on Problem [facility] [id number] Other postherpet ic nervous system involvemen t Problem [facility] [id number] Hospital discharge follow-up Problem [facility] 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 Problem [facility] [id number] Diarrhea of presumed infectious origin Problem [facility] [id number] Acquired anal stenosis Problem [facility] [id number] Lower urinary tract symptoms (LUTS) Problem [facility] [id number] BPH loc w urin obs/LUTS Problem [facility] Benign prostatic hyperplasi a BPH (benign prostatic hyperplasi a) Problem [facility] [id number] Prostatiti s, acute Problem [facility] [id number] ED (erectile dysfunctio n) of organic origin Problem [facility] Routine eye exam Routine eye exam Problem [facility] [id number] [facility] current use of insulin Problem [facility] Overactive bladder Overactive bladder Problem [facility] Impotence of organic origin ED (erectile dysfunctio n) Problem [facility] [id number] 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 Problem [facility] [id number] Type 2 diabetes mellitus with foot ulcer Problem [facility] [id number] Gastroesop hageal reflux disease without esophagiti s Problem [facility] [id number] Urethritis Problem Comm on [facility] [id number] Incomplete emptying of bladder Problem [facility] Allergies, Adverse Reactions, Alerts Allergy Name Allergy Type Status Severity Reaction(s) Onset Date Inactive Date Treating Clinician Comments Source valsarta n valsarta n Active angioedema [facility] 6335 Drug allergy Active Unknown [facility] cephalex in cephalex in Active shock [facility] carvedil ol carvedil ol Active Unknown [facility] lisinopr il lisinopr il Active angioedema [facility] Social History Social Habit Start Date Stop Date Quantity Comments Source History of Tobacco Use Current Smoker [facility] Sex Assigned At [facility] Smoking Status Start Date Stop Date Source Current Smoker 2023-09-30 00:00:00 [facility] Never Smoker [facility] Medications Ordered Medication Name Filled Medication Name Start Date Stop Date Current Medication? Ordering Clinician Indication Dosage Frequency Signature (SIG) Comments Components Source Doxycycline Hyclate 100 MG Doxycycline Hyclate 100 MG - 00:00: 00 No 1{capsu le} BID Doxycyclin e Hyclate 100 MG Doxycycline Hyclate 100 MG Doxycycline Hyclate 100 MG 2- 00:00: 00 No 1{capsu le} BID Doxycyclin e Hyclate 100 MG Pregabalin 225 MG Pregabalin 225 MG 0 1-16 00:00: 00 No 1{capsu le} BID Pregabalin 225 MG Pregabalin 225 MG Pregabalin 225 MG 0 1-16 00:00: 00 No 1{capsu le} BID Pregabalin 225 MG Pregabalin 225 MG Pregabalin 225 MG 0 1-16 00:00: 00 No 1{capsu le} BID Pregabalin 225 MG Pregabalin 225 MG Pregabalin 225 MG 2023-0 1-16 00:00: 00 No 1{capsu le} BID Pregabalin 225 MG Pregabalin 225 MG Pregabalin 225 MG 2024-0 1-16 00:00: 00 No 1{capsu le} BID Pregabalin 225 MG Pregabalin 225 MG Pregabalin 225 MG 1 0-12 00:00: 00 No 1{capsu le} BID Pregabalin 225 MG Pregabalin 225 MG Pregabalin 225 MG 2022-08 0-12 00:00: 00 No 1{capsu le} BID Pregabalin 225 MG Pregabalin 225 MG Pregabalin 225 MG 2022-08 0-12 00:00: 00 No 1{capsu le} BID Pregabalin 225 MG Pregabalin 225 MG Pregabalin 225 MG 1 0-12 00:00: 00 No 1{capsu le} BID Pregabalin 225 MG Pregabalin 225 MG Pregabalin 225 MG 2022-08 0-12 00:00: 00 No 1{capsu le} BID Pregabalin 225 MG Pregabalin 225 MG Pregabalin 225 MG 2022-08 0-12 00:00: 00 No 1{capsu le} BID Pregabalin 225 MG Pregabalin 225 MG Pregabalin 225 MG 2022-08 0-12 00:00: 00 No 1{capsu le} BID Pregabalin 225 MG Pregabalin 225 MG Pregabalin 225 MG 2022-08 0-12 00:00: 00 No 1{capsu le} BID Pregabalin 225 MG Pregabalin 225 MG Pregabalin 225 MG 2022-08 0-12 00:00: 00 No 1{capsu le} BID Pregabalin 225 MG Pregabalin 225 MG Pregabalin 225 MG 2022-08 0-12 00:00: 00 No 1{capsu le} BID Pregabalin 225 MG Pregabalin 225 MG Pregabalin 225 MG 2022-08 0-12 00:00: 00 No 1{capsu le} BID Pregabalin 225 MG Pregabalin 200 MG Pregabalin 200 MG 3-0 5-21 00:00: 00 No Pregabalin 200 MG Pregabalin 200 MG Pregabalin 200 MG 2022-0 5-21 00:00: 00 No Pregabalin 200 MG Pregabalin 200 MG Pregabalin 200 MG 3-0 5-21 00:00: 00 No Pregabalin 200 MG Pregabalin 200 MG Pregabalin 200 MG 3-0 5-21 00:00: 00 No Pregabalin 200 MG Pregabalin 200 MG Pregabalin 200 MG 3-0 5-21 00:00: 00 No Pregabalin 200 MG Pregabalin 200 MG Pregabalin 200 MG 3-0 5-21 00:00: 00 No Pregabalin 200 MG Pregabalin 200 MG Pregabalin 200 MG 3-0 5-21 00:00: 00 No Pregabalin 200 MG Pregabalin 200 MG Pregabalin 200 MG 3-0 5-21 00:00: 00 No Pregabalin 200 MG Pregabalin 200 MG Pregabalin 200 MG 3-0 5-21 00:00: 00 No Pregabalin 200 MG Pregabalin 200 MG Pregabalin 200 MG 3-0 5-21 00:00: 00 No Pregabalin 200 MG Pregabalin 200 MG Pregabalin 200 MG 3-0 5-21 00:00: 00 No Pregabalin 200 MG Pregabalin 200 MG Pregabalin 200 MG 2022-0 5-21 00:00: 00 No Pregabalin 200 MG Pregabalin 225 MG Pregabalin 225 MG 3-0 3-07 00:00: 00 No Pregabalin 225 MG Viagra 100 MG Viagra 100 MG 2022-0 1-25 00:00: 00 No Viagra 100 MG Viagra 100 MG Viagra 100 MG 2022-0 1-25 00:00: 00 No Viagra 100 MG Viagra 100 MG Viagra 100 MG 2022-0 1-25 00:00: 00 No Viagra 100 MG Viagra 100 MG Viagra 100 MG 2022-0 1-25 00:00: 00 No Viagra 100 MG Viagra 100 MG Viagra 100 MG 2022-0 1-25 00:00: 00 No Viagra 100 MG Viagra 100 MG Viagra 100 MG 2022-0 1-25 00:00: 00 04-01 00:00 :00 No Viagra 100 MG Viagra 100 MG Viagra 100 MG 2022-0 1-25 00:00: 00 04-01 00:00 :00 No Viagra 100 MG Viagra 100 MG Viagra 100 MG 09-03 00:00: 00 04-01 00:00 :00 No Viagra 100 MG Viagra 100 MG Viagra 100 MG 09-03 00:00: 00 04-01 00:00 :00 No Viagra 100 MG Viagra 100 MG Viagra 100 MG 09-03 00:00: 00 04-01 00:00 :00 No Viagra 100 MG Viagra 100 MG Viagra 100 MG 09-03 00:00: 00 04-01 00:00 :00 No Viagra 100 MG Viagra 100 MG Viagra 100 MG 09-03 00:00: 00 04-01 00:00 :00 No Viagra 100 MG Pregabalin 225 MG Pregabalin 225 MG 2021-08 00:00: 00 No TID Pregabalin 225 MG Toujeo Max SoloStar 300 UNIT/ML Toujeo Max SoloStar 300 UNIT/ML 2021-08 00:00: 00 No QD Toujeo Max SoloStar 300 UNIT/ML Pregabalin 225 MG Pregabalin 225 MG 2021-08 00:00: 00 No TID Pregabalin 225 MG Toujeo Max SoloStar 300 UNIT/ML Toujeo Max SoloStar 300 UNIT/ML 2021-08 00:00: 00 No QD Toujeo Max SoloStar 300 UNIT/ML Toujeo Max SoloStar 300 UNIT/ML Toujeo Max SoloStar 300 UNIT/ML 2021-08 00:00: 00 No QD Toujeo Max SoloStar 300 UNIT/ML Pregabalin 225 MG Pregabalin 225 MG 2021-08 00:00: 00 No TID Pregabalin 225 MG Toujeo Max SoloStar 300 UNIT/ML Toujeo Max SoloStar 300 UNIT/ML 2021-08 00:00: 00 No QD Toujeo Max SoloStar 300 UNIT/ML Pregabalin 225 MG Pregabalin 225 MG 2021-08 00:00: 00 No TID Pregabalin 225 MG Pregabalin 225 MG Pregabalin 225 MG 2021-08 00:00: 00 No TID Pregabalin 225 MG Toujeo Max SoloStar 300 UNIT/ML Toujeo Max SoloStar 300 UNIT/ML 2021-08 00:00: 00 No QD Toujeo Max SoloStar 300 UNIT/ML Toujeo Max SoloStar 300 UNIT/ML Toujeo Max SoloStar 300 UNIT/ML 2021-08 00:00: 00 No QD Toujeo Max SoloStar 300 UNIT/ML Pregabalin 225 MG Pregabalin 225 MG 2021-08 00:00: 00 No TID Pregabalin 225 MG Toujeo Max SoloStar 300 UNIT/ML Toujeo Max SoloStar 300 UNIT/ML 2021-08 00:00: 00 No QD Toujeo Max SoloStar 300 UNIT/ML Pregabalin 225 MG Pregabalin 225 MG 2021-08 00:00: 00 No TID Pregabalin 225 MG Toujeo Max SoloStar 300 UNIT/ML Toujeo Max SoloStar 300 UNIT/ML 2021-08 00:00: 00 No QD Toujeo Max SoloStar 300 UNIT/ML Pregabalin 225 MG Pregabalin 225 MG 2021-08 00:00: 00 No TID Pregabalin 225 MG Toujeo Max SoloStar 300 UNIT/ML Toujeo Max SoloStar 300 UNIT/ML 2021-08 00:00: 00 No QD Toujeo Max SoloStar 300 UNIT/ML Pregabalin 225 MG Pregabalin 225 MG 2021-08 00:00: 00 No TID Pregabalin 225 MG Toujeo Max SoloStar 300 UNIT/ML Toujeo Max SoloStar 300 UNIT/ML 2021-08 00:00: 00 No QD Toujeo Max SoloStar 300 UNIT/ML Pregabalin 225 MG Pregabalin 225 MG 2021-08 00:00: 00 No TID Pregabalin 225 MG Toujeo Max SoloStar 300 UNIT/ML Toujeo Max SoloStar 300 UNIT/ML 2021-08 00:00: 00 No QD Toujeo Max SoloStar 300 UNIT/ML Pregabalin 225 MG Pregabalin 225 MG 2021-08 00:00: 00 No TID Pregabalin 225 MG Toujeo Max SoloStar 300 UNIT/ML Toujeo Max SoloStar 300 UNIT/ML 2021-08 00:00: 00 No QD Toujeo Max SoloStar 300 UNIT/ML Pregabalin 225 MG Pregabalin 225 MG 2021-08 00:00: 00 No TID Pregabalin 225 MG Toujeo Max SoloStar 300 UNIT/ML Toujeo Max SoloStar 300 UNIT/ML 2021-08 00:00: 00 No QD Toujeo Max SoloStar 300 UNIT/ML Pregabalin 225 MG Pregabalin 225 MG 2021-08 00:00: 00 No TID Pregabalin 225 MG Toujeo Max SoloStar 300 UNIT/ML Toujeo Max SoloStar 300 UNIT/ML 2021-08 00:00: 00 No QD Toujeo Max SoloStar 300 UNIT/ML Pregabalin 225 MG Pregabalin 225 MG 2021-08 00:00: 00 No TID Pregabalin 225 MG Toujeo Max SoloStar 300 UNIT/ML Toujeo Max SoloStar 300 UNIT/ML 2021-08 00:00: 00 No QD Toujeo Max SoloStar 300 UNIT/ML Pregabalin 225 MG Pregabalin 225 MG 2021-08 00:00: 00 No TID Pregabalin 225 MG Pregabalin 225 MG Pregabalin 225 MG 2021-08 00:00: 00 No TID Pregabalin 225 MG Toujeo Max SoloStar 300 UNIT/ML Toujeo Max SoloStar 300 UNIT/ML 2021-08 00:00: 00 No QD Toujeo Max SoloStar 300 UNIT/ML Pregabalin 225 MG Pregabalin 225 MG 2021-08 00:00: 00 No TID Pregabalin 225 MG Toujeo Max SoloStar 300 UNIT/ML Toujeo Max SoloStar 300 UNIT/ML 2021-08 00:00: 00 No QD Toujeo Max SoloStar 300 UNIT/ML Pregabalin 225 MG Pregabalin 225 MG 2021-08 00:00: 00 No TID Pregabalin 225 MG Toujeo Max SoloStar 300 UNIT/ML Toujeo Max SoloStar 300 UNIT/ML 2021-08 00:00: 00 No QD Toujeo Max SoloStar 300 UNIT/ML Pregabalin 225 MG Pregabalin 225 MG 2021-08 00:00: 00 No TID Pregabalin 225 MG Toujeo Max SoloStar 300 UNIT/ML Toujeo Max SoloStar 300 UNIT/ML 2021-08 00:00: 00 No QD Toujeo Max SoloStar 300 UNIT/ML Pregabalin 225 MG Pregabalin 225 MG 2021-08 00:00: 00 No TID Pregabalin 225 MG Toujeo Max SoloStar 300 UNIT/ML Toujeo Max SoloStar 300 UNIT/ML 2021-08 00:00: 00 No QD Toujeo Max SoloStar 300 UNIT/ML Pregabalin 225 MG Pregabalin 225 MG 2021-08 00:00: 00 No TID Pregabalin 225 MG Toujeo Max SoloStar 300 UNIT/ML Toujeo Max SoloStar 300 UNIT/ML 2021-08 00:00: 00 No QD Toujeo Max SoloStar 300 UNIT/ML Pregabalin 200 MG Pregabalin 200 MG 2020-08 00:00: 00 No Pregabalin 200 MG Esomeprazol e Magnesium 40 MG Esomeprazol e Magnesium 40 MG 03-03 00:00: 00 No QD Esomeprazo le Magnesium 40 MG Esomeprazol e Magnesium 40 MG Esomeprazol e Magnesium 40 MG 03-03 00:00: 00 No QD Esomeprazo le Magnesium 40 MG Esomeprazol e Magnesium 40 MG Esomeprazol e Magnesium 40 MG 03-03 00:00: 00 No QD Esomeprazo le Magnesium 40 MG Esomeprazol e Magnesium 40 MG Esomeprazol e Magnesium 40 MG 2020-0 03-03 00:00: 00 No QD Esomeprazo le Magnesium 40 MG Esomeprazol e Magnesium 40 MG Esomeprazol e Magnesium 40 MG 2020-0 03-03 00:00: 00 No QD Esomeprazo le Magnesium 40 MG Esomeprazol e Magnesium 40 MG Esomeprazol e Magnesium 40 MG 2020-0 03-03 00:00: 00 No QD Esomeprazo le Magnesium 40 MG Esomeprazol e Magnesium 40 MG Esomeprazol e Magnesium 40 MG 2020-0 03-03 00:00: 00 No QD Esomeprazo le Magnesium 40 MG Esomeprazol e Magnesium 40 MG Esomeprazol e Magnesium 40 MG 2020-0 03-03 00:00: 00 No QD Esomeprazo le Magnesium 40 MG Esomeprazol e Magnesium 40 MG Esomeprazol e Magnesium 40 MG 0 03-03 00:00: 00 No QD Esomeprazo le Magnesium 40 MG Esomeprazol e Magnesium 40 MG Esomeprazol e Magnesium 40 MG 2020-0 03-03 00:00: 00 No QD Esomeprazo le Magnesium 40 MG Esomeprazol e Magnesium 40 MG Esomeprazol e Magnesium 40 MG 2020-0 03-03 00:00: 00 No QD Esomeprazo le Magnesium 40 MG Esomeprazol e Magnesium 40 MG Esomeprazol e Magnesium 40 MG 2020-0 03-03 00:00: 00 No QD Esomeprazo le Magnesium 40 MG Esomeprazol e Magnesium 40 MG Esomeprazol e Magnesium 40 MG 2020-0 03-03 00:00: 00 No QD Esomeprazo le Magnesium 40 MG Esomeprazol e Magnesium 40 MG Esomeprazol e Magnesium 40 MG 2020-0 03-03 00:00: 00 No QD Esomeprazo le Magnesium 40 MG Esomeprazol e Magnesium 40 MG Esomeprazol e Magnesium 40 MG 2020-0 03-03 00:00: 00 No QD Esomeprazo le Magnesium 40 MG Esomeprazol e Magnesium 40 MG Esomeprazol e Magnesium 40 MG 2020-0 03-03 00:00: 00 No QD Esomeprazo le Magnesium 40 MG Esomeprazol e Magnesium 40 MG Esomeprazol e Magnesium 40 MG 2020-0 25 00:00: 00 No QD Esomeprazo le Magnesium 40 MG clomiPHENE Citrate 50 MG clomiPHENE Citrate 50 MG 1-0 - 00:00: 00 No QD clomiPHENE Citrate 50 MG clomiPHENE Citrate 50 MG clomiPHENE Citrate 50 MG 1-0 -10 00:00: 00 No QD clomiPHENE Citrate 50 MG clomiPHENE Citrate 50 MG clomiPHENE Citrate 50 MG 1-0 10 00:00: 00 No QD clomiPHENE Citrate 50 MG clomiPHENE Citrate 50 MG clomiPHENE Citrate 50 MG 1-0 - 00:00: 00 No QD clomiPHENE Citrate 50 MG clomiPHENE Citrate 50 MG clomiPHENE Citrate 50 MG 1-0 - 00:00: 00 No QD clomiPHENE Citrate 50 MG clomiPHENE Citrate 50 MG clomiPHENE Citrate 50 MG 1-0 -10 00:00: 00 No QD clomiPHENE Citrate 50 MG clomiPHENE Citrate 50 MG clomiPHENE Citrate 50 MG 1-0 -10 00:00: 00 No QD clomiPHENE Citrate 50 MG clomiPHENE Citrate 50 MG clomiPHENE Citrate 50 MG 1-0 -10 00:00: 00 No QD clomiPHENE Citrate 50 MG clomiPHENE Citrate 50 MG clomiPHENE Citrate 50 MG 1-0 10 00:00: 00 No QD clomiPHENE Citrate 50 MG clomiPHENE Citrate 50 MG clomiPHENE Citrate 50 MG 1-0 -10 00:00: 00 No QD clomiPHENE Citrate 50 MG clomiPHENE Citrate 50 MG clomiPHENE Citrate 50 MG 1-0 -10 00:00: 00 No QD clomiPHENE Citrate 50 MG clomiPHENE Citrate 50 MG clomiPHENE Citrate 50 MG 1-0 3-10 00:00: 00 No QD clomiPHENE Citrate 50 MG clomiPHENE Citrate 50 MG clomiPHENE Citrate 50 MG 1-0 3-10 00:00: 00 No QD clomiPHENE Citrate 50 MG clomiPHENE Citrate 50 MG clomiPHENE Citrate 50 MG 1-0 -10 00:00: 00 No QD clomiPHENE Citrate 50 MG clomiPHENE Citrate 50 MG clomiPHENE Citrate 50 MG 1-0 3-10 00:00: 00 No QD clomiPHENE Citrate 50 MG clomiPHENE Citrate 50 MG clomiPHENE Citrate 50 MG 1-0 3-10 00:00: 00 No QD clomiPHENE Citrate 50 MG clomiPHENE Citrate 50 MG clomiPHENE Citrate 50 MG 1-0 -10 00:00: 00 No QD clomiPHENE Citrate 50 MG clomiPHENE Citrate 50 MG clomiPHENE Citrate 50 MG 1-0 -10 00:00: 00 No QD clomiPHENE Citrate 50 MG clomiPHENE Citrate 50 MG clomiPHENE Citrate 50 MG 1-0 -10 00:00: 00 No QD clomiPHENE Citrate 50 MG clomiPHENE Citrate 50 MG clomiPHENE Citrate 50 MG 1-0 -10 00:00: 00 No QD clomiPHENE Citrate 50 MG clomiPHENE Citrate 50 MG clomiPHENE Citrate 50 MG 1-0 -10 00:00: 00 No QD clomiPHENE Citrate 50 MG clomiPHENE Citrate 50 MG clomiPHENE Citrate 50 MG 1-0 -10 00:00: 00 No QD clomiPHENE Citrate 50 MG clomiPHENE Citrate 50 MG clomiPHENE Citrate 50 MG 1-0 -10 00:00: 00 No QD clomiPHENE Citrate 50 MG clomiPHENE Citrate 50 MG clomiPHENE Citrate 50 MG 1-0 -10 00:00: 00 No QD clomiPHENE Citrate 50 MG clomiPHENE Citrate 50 MG clomiPHENE Citrate 50 MG 1-0 -10 00:00: 00 No QD clomiPHENE Citrate 50 MG clomiPHENE Citrate 50 MG clomiPHENE Citrate 50 MG 1-0 3-10 00:00: 00 No QD clomiPHENE Citrate 50 MG clomiPHENE Citrate 50 MG clomiPHENE Citrate 50 MG 1-0 3-10 00:00: 00 No QD clomiPHENE Citrate 50 MG clomiPHENE Citrate 50 MG clomiPHENE Citrate 50 MG 1-0 3-10 00:00: 00 No QD clomiPHENE Citrate 50 MG clomiPHENE Citrate 50 MG clomiPHENE Citrate 50 MG 1-0 3-10 00:00: 00 No QD clomiPHENE Citrate 50 MG clomiPHENE Citrate 50 MG clomiPHENE Citrate 50 MG 1-0 3-10 00:00: 00 No QD clomiPHENE Citrate 50 MG clomiPHENE Citrate 50 MG clomiPHENE Citrate 50 MG 1-0 3-10 00:00: 00 No QD clomiPHENE Citrate 50 MG clomiPHENE Citrate 50 MG clomiPHENE Citrate 50 MG 1-0 3-10 00:00: 00 No QD clomiPHENE Citrate 50 MG clomiPHENE Citrate 50 MG clomiPHENE Citrate 50 MG 1-0 3-10 00:00: 00 No QD clomiPHENE Citrate 50 MG clomiPHENE Citrate 50 MG clomiPHENE Citrate 50 MG 1-0 3-10 00:00: 00 No QD clomiPHENE Citrate 50 MG clomiPHENE Citrate 50 MG clomiPHENE Citrate 50 MG 1-0 -10 00:00: 00 No QD clomiPHENE Citrate 50 MG clomiPHENE Citrate 50 MG clomiPHENE Citrate 50 MG 1-0 3-10 00:00: 00 No QD clomiPHENE Citrate 50 MG clomiPHENE Citrate 50 MG clomiPHENE Citrate 50 MG 1-0 3-10 00:00: 00 No QD clomiPHENE Citrate 50 MG clomiPHENE Citrate 50 MG clomiPHENE Citrate 50 MG 1-0 3-10 00:00: 00 No QD clomiPHENE Citrate 50 MG clomiPHENE Citrate 50 MG clomiPHENE Citrate 50 MG 1-0 3-10 00:00: 00 No QD clomiPHENE Citrate 50 MG glipiZIDE 10 MG glipiZIDE 10 MG No QD glipiZIDE 10 MG Sildenafil Citrate 100 MG Sildenafil Citrate 100 MG No Sildenafil Citrate 100 MG Combigan 0.2-0.5 % Combigan 0.2-0.5 % No Combigan 0.2-0.5 % NIFEdipine ER Osmotic Release 90 MG NIFEdipine ER Osmotic Release 90 MG No 1{table t} QD NIFEdipine ER Osmotic Release 90 MG Esomeprazol e Magnesium 40 MG Esomeprazol e Magnesium 40 MG No 1{capsu le} QD Esomeprazo le Magnesium 40 MG traZODone HCl 50 MG traZODone HCl 50 MG No 1{table t_at_be dtime_a s_neede d} QD traZODone HCl 50 MG hydrOXYzine HCl 25 MG hydrOXYzine HCl 25 MG No TID hydrOXYzin e HCl 25 MG Cholestyram ine 4 GM Cholestyram ine 4 GM No Cholestyra mine 4 GM Toujeo Max SoloStar 300 UNIT/ML Toujeo Max SoloStar 300 UNIT/ML No QD Toujeo Max SoloStar 300 UNIT/ML hydroCHLORO thiazide 25 MG hydroCHLORO thiazide 25 MG No 1{table t_in_th e_morni ng} QD hydroCHLOR Othiazide 25 MG Pravastatin Sodium 40 MG Pravastatin Sodium 40 MG No QD Pravastati n Sodium 40 MG Sildenafil Citrate 100 MG Sildenafil Citrate 100 MG No Sildenafil Citrate 100 MG metFORMIN HCl 500 MG metFORMIN HCl 500 MG No 1{table t_with_ a_meal} QD metFORMIN HCl 500 MG Mupirocin 2 % Mupirocin 2 % No 1{appli cation} QD Mupirocin 2 % metFORMIN HCl 1000 MG metFORMIN HCl 1000 MG No 1{table t_with_ a_meal} BID metFORMIN HCl 1000 MG predniSONE 20 MG predniSONE 20 MG No 1{table t} QD predniSONE 20 MG Ciprofloxac in HCl 500 MG Ciprofloxac in HCl 500 MG No 1{table t} BID Ciprofloxa hardik HCl 500 MG Combigan 0.2-0.5 % Combigan 0.2-0.5 % No Combigan 0.2-0.5 % hydrALAZINE HCl 100 MG hydrALAZINE HCl 100 MG No 1{table t_with_ food} TID hydrALAZIN E HCl 100 MG glipiZIDE 10 MG glipiZIDE 10 MG No QD glipiZIDE 10 MG Valtrex 1 GM Valtrex 1 GM No 1{table t} QD Valtrex 1 GM Dicyclomine HCl 20 MG Dicyclomine HCl 20 MG No Dicyclomin e HCl 20 MG NIFEdipine ER Osmotic Release 90 MG NIFEdipine ER Osmotic Release 90 MG No 1{table t} QD NIFEdipine ER Osmotic Release 90 MG Esomeprazol e Magnesium 40 MG Esomeprazol e Magnesium 40 MG No 1{capsu le} QD Esomeprazo le Magnesium 40 MG traZODone HCl 50 MG traZODone HCl 50 MG No 1{table t_at_be dtime_a s_neede d} QD traZODone HCl 50 MG hydrOXYzine HCl 25 MG hydrOXYzine HCl 25 MG No TID hydrOXYzin e HCl 25 MG Doxycycline Hyclate 100 MG Doxycycline Hyclate 100 MG No 1{table t} BID Doxycyclin e Hyclate 100 MG Cholestyram ine 4 GM Cholestyram ine 4 GM No Cholestyra mine 4 GM Toujeo Max SoloStar 300 UNIT/ML Toujeo Max SoloStar 300 UNIT/ML No QD Toujeo Max SoloStar 300 UNIT/ML hydroCHLORO thiazide 25 MG hydroCHLORO thiazide 25 MG No 1{table t_in_th e_morni ng} QD hydroCHLOR Othiazide 25 MG Pravastatin Sodium 40 MG Pravastatin Sodium 40 MG No QD Pravastati n Sodium 40 MG Sildenafil Citrate 100 MG Sildenafil Citrate 100 MG No Sildenafil Citrate 100 MG metFORMIN HCl 500 MG metFORMIN HCl 500 MG No 1{table t_with_ a_meal} QD metFORMIN HCl 500 MG Mupirocin 2 % Mupirocin 2 % No 1{appli cation} QD Mupirocin 2 % metFORMIN HCl 1000 MG metFORMIN HCl 1000 MG No 1{table t_with_ a_meal} BID metFORMIN HCl 1000 MG predniSONE 20 MG predniSONE 20 MG No 1{table t} QD predniSONE 20 MG Ciprofloxac in HCl 500 MG Ciprofloxac in HCl 500 MG No 1{table t} BID Ciprofloxa hardik HCl 500 MG Combigan 0.2-0.5 % Combigan 0.2-0.5 % No Combigan 0.2-0.5 % hydrALAZINE HCl 100 MG hydrALAZINE HCl 100 MG No 1{table t_with_ food} TID hydrALAZIN E HCl 100 MG glipiZIDE 10 MG glipiZIDE 10 MG No QD glipiZIDE 10 MG Valtrex 1 GM Valtrex 1 GM No 1{table t} QD Valtrex 1 GM Dicyclomine HCl 20 MG Dicyclomine HCl 20 MG No Dicyclomin e HCl 20 MG NIFEdipine ER Osmotic Release 90 MG NIFEdipine ER Osmotic Release 90 MG No 1{table t} QD NIFEdipine ER Osmotic Release 90 MG Esomeprazol e Magnesium 40 MG Esomeprazol e Magnesium 40 MG No 1{capsu le} QD Esomeprazo le Magnesium 40 MG traZODone HCl 50 MG traZODone HCl 50 MG No 1{table t_at_be dtime_a s_neede d} QD traZODone HCl 50 MG hydrOXYzine HCl 25 MG hydrOXYzine HCl 25 MG No TID hydrOXYzin e HCl 25 MG Doxycycline Hyclate 100 MG Doxycycline Hyclate 100 MG No 1{table t} BID Doxycyclin e Hyclate 100 MG Cholestyram ine 4 GM Cholestyram ine 4 GM No 1{packe t_mixed _with_w ater_or _non-ca rbonate d_drink } QD Cholestyra mine 4 GM Toujeo Max SoloStar 300 UNIT/ML Toujeo Max SoloStar 300 UNIT/ML No QD Toujeo Max SoloStar 300 UNIT/ML Esomeprazol e Magnesium 40 MG Esomeprazol e Magnesium 40 MG No 1{capsu le} QD Esomeprazo le Magnesium 40 MG Combigan 0.2-0.5 % Combigan 0.2-0.5 % No Combigan 0.2-0.5 % Dicyclomine HCl 20 MG Dicyclomine HCl 20 MG No 1{table t} TID Dicyclomin e HCl 20 MG metFORMIN HCl 1000 MG metFORMIN HCl 1000 MG No 1{table t_with_ a_meal} BID metFORMIN HCl 1000 MG hydrALAZINE HCl 100 MG hydrALAZINE HCl 100 MG No 1{table t_with_ food} TID hydrALAZIN E HCl 100 MG glipiZIDE 10 MG glipiZIDE 10 MG No QD glipiZIDE 10 MG traZODone HCl 50 MG traZODone HCl 50 MG No 1{table t_at_be dtime_a s_neede d} QD traZODone HCl 50 MG metFORMIN HCl 500 MG metFORMIN HCl 500 MG No 1{table t_with_ a_meal} QD metFORMIN HCl 500 MG predniSONE 20 MG predniSONE 20 MG No 1{table t} QD predniSONE 20 MG Pravastatin Sodium 40 MG Pravastatin Sodium 40 MG No 1{table t} QD Pravastati n Sodium 40 MG Sildenafil Citrate 100 MG Sildenafil Citrate 100 MG No Sildenafil Citrate 100 MG NIFEdipine ER Osmotic Release 90 MG NIFEdipine ER Osmotic Release 90 MG No 1{table t} QD NIFEdipine ER Osmotic Release 90 MG hydroCHLORO thiazide 25 MG hydroCHLORO thiazide 25 MG No 1{table t_in_ e_morni ng} QD hydroCHLOR Othiazide 25 MG hydrOXYzine HCl 25 MG hydrOXYzine HCl 25 MG No TID hydrOXYzin e HCl 25 MG Cholestyram ine 4 GM Cholestyram ine 4 GM No 1{packe t_mixed _with_w ater_or _non-ca rbonate d_drink } QD Cholestyra mine 4 GM [employer] Max SoloStar 300 UNIT/ML [employer] SoloStar 300 UNIT/ML No QD Toujeo Max SoloStar 300 UNIT/ML Esomeprazol e Magnesium 40 MG Esomeprazol e Magnesium 40 MG No 1{capsu le} QD Esomeprazo le Magnesium 40 MG Combigan 0.2-0.5 % Combigan 0.2-0.5 % No Combigan 0.2-0.5 % Dicyclomine HCl 20 MG Dicyclomine HCl 20 MG No 1{table t} TID Dicyclomin e HCl 20 MG metFORMIN HCl 1000 MG metFORMIN HCl 1000 MG No 1{table t_with_ a_meal} BID metFORMIN HCl 1000 MG hydrALAZINE HCl 100 MG hydrALAZINE HCl 100 MG No 1{table t_with_ food} TID hydrALAZIN E HCl 100 MG glipiZIDE 10 MG glipiZIDE 10 MG No QD glipiZIDE 10 MG traZODone HCl 50 MG traZODone HCl 50 MG No 1{table t_at_be dtime_a s_neede d} QD traZODone HCl 50 MG metFORMIN HCl 500 MG metFORMIN HCl 500 MG No 1{table t_with_ a_meal} QD metFORMIN HCl 500 MG predniSONE 20 MG predniSONE 20 MG No 1{table t} QD predniSONE 20 MG Pravastatin Sodium 40 MG Pravastatin Sodium 40 MG No 1{table t} QD Pravastati n Sodium 40 MG Sildenafil Citrate 100 MG Sildenafil Citrate 100 MG No Sildenafil Citrate 100 MG metFORMIN HCl 1000 MG metFORMIN HCl 1000 MG No BID metFORMIN HCl 1000 MG NIFEdipine ER Osmotic Release 90 MG NIFEdipine ER Osmotic Release 90 MG No 1{table t} QD NIFEdipine ER Osmotic Release 90 MG hydroCHLORO thiazide 25 MG hydroCHLORO thiazide 25 MG No 1{table t_in_th e_morni ng} QD hydroCHLOR Othiazide 25 MG hydrOXYzine HCl 25 MG hydrOXYzine HCl 25 MG No TID hydrOXYzin e HCl 25 MG Cholestyram ine 4 GM Cholestyram ine 4 GM No 1{packe t_mixed _with_w ater_or _non-ca rbonate d_drink } QD Cholestyra mine 4 GM Toujeo Max SoloStar 300 UNIT/ML Toujeo Max SoloStar 300 UNIT/ML No QD Toujeo Max SoloStar 300 UNIT/ML hydrALAZINE HCl 100 MG hydrALAZINE HCl 100 MG No hydrALAZIN E HCl 100 MG Esomeprazol e Magnesium 40 MG Esomeprazol e Magnesium 40 MG No 1{capsu le} QD Esomeprazo le Magnesium 40 MG Combigan 0.2-0.5 % Combigan 0.2-0.5 % No Combigan 0.2-0.5 % Dicyclomine HCl 20 MG Dicyclomine HCl 20 MG No 1{table t} TID Dicyclomin e HCl 20 MG metFORMIN HCl 1000 MG metFORMIN HCl 1000 MG No 1{table t_with_ a_meal} BID metFORMIN HCl 1000 MG hydrALAZINE HCl 100 MG hydrALAZINE HCl 100 MG No 1{table t_with_ food} TID hydrALAZIN E HCl 100 MG glipiZIDE 10 MG glipiZIDE 10 MG No QD glipiZIDE 10 MG traZODone HCl 50 MG traZODone HCl 50 MG No 1{table t_at_be dtime_a s_neede d} QD traZODone HCl 50 MG metFORMIN HCl 500 MG metFORMIN HCl 500 MG No 1{table t_with_ a_meal} QD metFORMIN HCl 500 MG predniSONE 20 MG predniSONE 20 MG No 1{table t} QD predniSONE 20 MG Pravastatin Sodium 40 MG Pravastatin Sodium 40 MG No 1{table t} QD Pravastati n Sodium 40 MG Valtrex 1 GM Valtrex 1 GM No 1{table t} QD Valtrex 1 GM Sildenafil Citrate 100 MG Sildenafil Citrate 100 MG No Sildenafil Citrate 100 MG NIFEdipine ER Osmotic Release 90 MG NIFEdipine ER Osmotic Release 90 MG No 1{table t} QD NIFEdipine ER Osmotic Release 90 MG hydroCHLORO thiazide 25 MG hydroCHLORO thiazide 25 MG No 1{table t_in e_morni ng} QD hydroCHLOR Othiazide 25 MG hydrOXYzine HCl 25 MG hydrOXYzine HCl 25 MG No TID hydrOXYzin e HCl 25 MG metFORMIN HCl 1000 MG metFORMIN HCl 1000 MG No 1{table t_with_ a_meal} BID metFORMIN HCl 1000 MG glipiZIDE 10 MG glipiZIDE 10 MG No QD glipiZIDE 10 MG NIFEdipine ER Osmotic Release 90 MG NIFEdipine ER Osmotic Release 90 MG No 1{table t} QD NIFEdipine ER Osmotic Release 90 MG Cholestyram ine 4 GM Cholestyram ine 4 GM No 1{packe t_mixed _with_w ater_or _non-ca rbonate d_drink } QD Cholestyra mine 4 GM Esomeprazol e Magnesium 40 MG Esomeprazol e Magnesium 40 MG No 1{capsu le} QD Esomeprazo le Magnesium 40 MG hydroCHLORO thiazide 25 MG hydroCHLORO thiazide 25 MG No 1{table t_in_ e_morni ng} QD hydroCHLOR Othiazide 25 MG Pravastatin Sodium 40 MG Pravastatin Sodium 40 MG No 1{table t} QD Pravastati n Sodium 40 MG Dicyclomine HCl 20 MG Dicyclomine HCl 20 MG No 1{table t} TID Dicyclomin e HCl 20 MG hydrALAZINE HCl 100 MG hydrALAZINE HCl 100 MG No 1{table t_with_ food} TID hydrALAZIN E HCl 100 MG Dicyclomine HCl 20 MG Dicyclomine HCl 20 MG No Dicyclomin e HCl 20 MG hydrOXYzine HCl 25 MG hydrOXYzine HCl 25 MG No TID hydrOXYzin e HCl 25 MG Combigan 0.2-0.5 % Combigan 0.2-0.5 % No Combigan 0.2-0.5 % predniSONE 20 MG predniSONE 20 MG No 1{table t} QD predniSONE 20 MG metFORMIN HCl 500 MG metFORMIN HCl 500 MG No 1{table t_with_ a_meal} QD metFORMIN HCl 500 MG Sildenafil Citrate 100 MG Sildenafil Citrate 100 MG No Sildenafil Citrate 100 MG Toujeo Max SoloStar 300 UNIT/ML Toujeo Max SoloStar 300 UNIT/ML No QD Toujeo Max SoloStar 300 UNIT/ML traZODone HCl 50 MG traZODone HCl 50 MG No 1{table t_at_be dtime_a s_neede d} QD traZODone HCl 50 MG Pravastatin Sodium 40 MG Pravastatin Sodium 40 MG No Pravastati n Sodium 40 MG Combigan 0.2-0.5 % Combigan 0.2-0.5 % No Combigan 0.2-0.5 % metFORMIN HCl 1000 MG metFORMIN HCl 1000 MG No 1{table t_with_ a_meal} BID metFORMIN HCl 1000 MG glipiZIDE 10 MG glipiZIDE 10 MG No QD glipiZIDE 10 MG NIFEdipine ER Osmotic Release 90 MG NIFEdipine ER Osmotic Release 90 MG No 1{table t} QD NIFEdipine ER Osmotic Release 90 MG Cholestyram ine 4 GM Cholestyram ine 4 GM No 1{packe t_mixed _with_w ater_or _non-ca rbonate d_drink } QD Cholestyra mine 4 GM Esomeprazol e Magnesium 40 MG Esomeprazol e Magnesium 40 MG No 1{capsu le} QD Esomeprazo le Magnesium 40 MG hydroCHLORO thiazide 25 MG hydroCHLORO thiazide 25 MG No 1{table t_in_th e_morni ng} QD hydroCHLOR Othiazide 25 MG Pravastatin Sodium 40 MG Pravastatin Sodium 40 MG No 1{table t} QD Pravastati n Sodium 40 MG Dicyclomine HCl 20 MG Dicyclomine HCl 20 MG No 1{table t} TID Dicyclomin e HCl 20 MG hydrALAZINE HCl 100 MG hydrALAZINE HCl 100 MG No 1{table t_with_ food} TID hydrALAZIN E HCl 100 MG predniSONE 20 MG predniSONE 20 MG No predniSONE 20 MG hydrOXYzine HCl 25 MG hydrOXYzine HCl 25 MG No TID hydrOXYzin e HCl 25 MG Combigan 0.2-0.5 % Combigan 0.2-0.5 % No Combigan 0.2-0.5 % predniSONE 20 MG predniSONE 20 MG No 1{table t} QD predniSONE 20 MG metFORMIN HCl 500 MG metFORMIN HCl 500 MG No 1{table t_with_ a_meal} QD metFORMIN HCl 500 MG Sildenafil Citrate 100 MG Sildenafil Citrate 100 MG No Sildenafil Citrate 100 MG Toujeo Max SoloStar 300 UNIT/ML Toujeo Max SoloStar 300 UNIT/ML No QD Toujeo Max SoloStar 300 UNIT/ML traZODone HCl 50 MG traZODone HCl 50 MG No 1{table t_at_be dtime_a s_neede d} QD traZODone HCl 50 MG glipiZIDE 10 MG glipiZIDE 10 MG No QD glipiZIDE 10 MG NIFEdipine ER Osmotic Release 90 MG NIFEdipine ER Osmotic Release 90 MG No 1{table t} NIFEdipine ER Osmotic Release 90 MG metFORMIN HCl 500 MG metFORMIN HCl 500 MG No metFORMIN HCl 500 MG glipiZIDE 10 MG glipiZIDE 10 MG No QD glipiZIDE 10 MG Cholestyram ine 4 GM Cholestyram ine 4 GM No 1{packe t_mixed _with_w ater_or _non-ca rbonate d_drink } QD Cholestyra mine 4 GM metFORMIN HCl 1000 MG metFORMIN HCl 1000 MG No metFORMIN HCl 1000 MG traZODone HCl 50 MG traZODone HCl 50 MG No traZODone HCl 50 MG metFORMIN HCl 500 MG metFORMIN HCl 500 MG No QD metFORMIN HCl 500 MG metFORMIN HCl 1000 MG metFORMIN HCl 1000 MG No BID metFORMIN HCl 1000 MG hydrALAZINE HCl 100 MG hydrALAZINE HCl 100 MG No hydrALAZIN E HCl 100 MG Valtrex 1 GM Valtrex 1 GM No 1{table t} QD Valtrex 1 GM Dicyclomine HCl 20 MG Dicyclomine HCl 20 MG No Dicyclomin e HCl 20 MG Pravastatin Sodium 40 MG Pravastatin Sodium 40 MG No Pravastati n Sodium 40 MG Combigan 0.2-0.5 % Combigan 0.2-0.5 % No Combigan 0.2-0.5 % predniSONE 20 MG predniSONE 20 MG No predniSONE 20 MG glipiZIDE 10 MG glipiZIDE 10 MG No QD glipiZIDE 10 MG NIFEdipine ER Osmotic Release 90 MG NIFEdipine ER Osmotic Release 90 MG No 1{table t} NIFEdipine ER Osmotic Release 90 MG metFORMIN HCl 500 MG metFORMIN HCl 500 MG No metFORMIN HCl 500 MG glipiZIDE 10 MG glipiZIDE 10 MG No QD glipiZIDE 10 MG Cholestyram ine 4 GM Cholestyram ine 4 GM No 1{packe t_mixed _with_w ater_or _non-ca rbonate d_drink } QD Cholestyra mine 4 GM metFORMIN HCl 1000 MG metFORMIN HCl 1000 MG No metFORMIN HCl 1000 MG traZODone HCl 50 MG traZODone HCl 50 MG No traZODone HCl 50 MG metFORMIN HCl 500 MG metFORMIN HCl 500 MG No QD metFORMIN HCl 500 MG metFORMIN HCl 500 MG metFORMIN HCl 500 MG No QD metFORMIN HCl 500 MG traZODone HCl 50 MG traZODone HCl 50 MG No traZODone HCl 50 MG hydrALAZINE HCl 100 MG hydrALAZINE HCl 100 MG No hydrALAZIN E HCl 100 MG Dicyclomine HCl 20 MG Dicyclomine HCl 20 MG No Dicyclomin e HCl 20 MG predniSONE 20 MG predniSONE 20 MG No predniSONE 20 MG glipiZIDE 10 MG glipiZIDE 10 MG No QD glipiZIDE 10 MG metFORMIN HCl 1000 MG metFORMIN HCl 1000 MG No BID metFORMIN HCl 1000 MG Pravastatin Sodium 40 MG Pravastatin Sodium 40 MG No Pravastati n Sodium 40 MG NIFEdipine ER Osmotic Release 90 MG NIFEdipine ER Osmotic Release 90 MG No 1{table t} NIFEdipine ER Osmotic Release 90 MG glipiZIDE 10 MG glipiZIDE 10 MG No QD glipiZIDE 10 MG metFORMIN HCl 1000 MG metFORMIN HCl 1000 MG No metFORMIN HCl 1000 MG Combigan 0.2-0.5 % Combigan 0.2-0.5 % No Combigan 0.2-0.5 % Valtrex 1 GM Valtrex 1 GM No 1{table t} QD Valtrex 1 GM Cholestyram ine 4 GM Cholestyram ine 4 GM No 1{packe t_mixed _with_w ater_or _non-ca rbonate d_drink } QD Cholestyra mine 4 GM metFORMIN HCl 500 MG metFORMIN HCl 500 MG No metFORMIN HCl 500 MG metFORMIN HCl 500 MG metFORMIN HCl 500 MG No QD metFORMIN HCl 500 MG traZODone HCl 50 MG traZODone HCl 50 MG No traZODone HCl 50 MG hydrALAZINE HCl 100 MG hydrALAZINE HCl 100 MG No hydrALAZIN E HCl 100 MG Dicyclomine HCl 20 MG Dicyclomine HCl 20 MG No Dicyclomin e HCl 20 MG predniSONE 20 MG predniSONE 20 MG No predniSONE 20 MG glipiZIDE 10 MG glipiZIDE 10 MG No QD glipiZIDE 10 MG metFORMIN HCl 1000 MG metFORMIN HCl 1000 MG No BID metFORMIN HCl 1000 MG Pravastatin Sodium 40 MG Pravastatin Sodium 40 MG No Pravastati n Sodium 40 MG NIFEdipine ER Osmotic Release 90 MG NIFEdipine ER Osmotic Release 90 MG No 1{table t} NIFEdipine ER Osmotic Release 90 MG glipiZIDE 10 MG glipiZIDE 10 MG No QD glipiZIDE 10 MG metFORMIN HCl 1000 MG metFORMIN HCl 1000 MG No metFORMIN HCl 1000 MG Combigan 0.2-0.5 % Combigan 0.2-0.5 % No Combigan 0.2-0.5 % Valtrex 1 GM Valtrex 1 GM No 1{table t} QD Valtrex 1 GM Cholestyram ine 4 GM Cholestyram ine 4 GM No 1{packe t_mixed _with_w ater_or _non-ca rbonate d_drink } QD Cholestyra mine 4 GM metFORMIN HCl 500 MG metFORMIN HCl 500 MG No metFORMIN HCl 500 MG metFORMIN HCl 500 MG metFORMIN HCl 500 MG No metFORMIN HCl 500 MG predniSONE 20 MG predniSONE 20 MG No predniSONE 20 MG Pravastatin Sodium 40 MG Pravastatin Sodium 40 MG No Pravastati n Sodium 40 MG Dicyclomine HCl 20 MG Dicyclomine HCl 20 MG No Dicyclomin e HCl 20 MG hydrALAZINE HCl 100 MG hydrALAZINE HCl 100 MG No hydrALAZIN E HCl 100 MG metFORMIN HCl 1000 MG metFORMIN HCl 1000 MG No metFORMIN HCl 1000 MG glipiZIDE 10 MG glipiZIDE 10 MG No QD glipiZIDE 10 MG NIFEdipine ER Osmotic Release 90 MG NIFEdipine ER Osmotic Release 90 MG No 1{table t} NIFEdipine ER Osmotic Release 90 MG glipiZIDE 10 MG glipiZIDE 10 MG No QD glipiZIDE 10 MG Combigan 0.2-0.5 % Combigan 0.2-0.5 % No Combigan 0.2-0.5 % Cholestyram ine 4 GM Cholestyram ine 4 GM No 1{packe t_mixed _with_w ater_or _non-ca rbonate d_drink } QD Cholestyra mine 4 GM metFORMIN HCl 500 MG metFORMIN HCl 500 MG No QD metFORMIN HCl 500 MG metFORMIN HCl 1000 MG metFORMIN HCl 1000 MG No BID metFORMIN HCl 1000 MG traZODone HCl 50 MG traZODone HCl 50 MG No traZODone HCl 50 MG Valtrex 1 GM Valtrex 1 GM No 1{table t} QD Valtrex 1 GM traZODone HCl 50 MG traZODone HCl 50 MG No traZODone HCl 50 MG hydrALAZINE HCl 100 MG hydrALAZINE HCl 100 MG No hydrALAZIN E HCl 100 MG Pravastatin Sodium 40 MG Pravastatin Sodium 40 MG No Pravastati n Sodium 40 MG metFORMIN HCl 500 MG metFORMIN HCl 500 MG No QD metFORMIN HCl 500 MG metFORMIN HCl 1000 MG metFORMIN HCl 1000 MG No metFORMIN HCl 1000 MG glipiZIDE 10 MG glipiZIDE 10 MG No QD glipiZIDE 10 MG Cholestyram ine 4 GM Cholestyram ine 4 GM No 1{packe t_mixed _with_w ater_or _non-ca rbonate d_drink } QD Cholestyra mine 4 GM Valtrex 1 GM Valtrex 1 GM No 1{table t} QD Valtrex 1 GM NIFEdipine ER Osmotic Release 90 MG NIFEdipine ER Osmotic Release 90 MG No 1{table t} NIFEdipine ER Osmotic Release 90 MG glipiZIDE 10 MG glipiZIDE 10 MG No QD glipiZIDE 10 MG Combigan 0.2-0.5 % Combigan 0.2-0.5 % No Combigan 0.2-0.5 % metFORMIN HCl 500 MG metFORMIN HCl 500 MG No metFORMIN HCl 500 MG metFORMIN HCl 1000 MG metFORMIN HCl 1000 MG No BID metFORMIN HCl 1000 MG hydrOXYzine HCl 25 MG hydrOXYzine HCl 25 MG No hydrOXYzin e HCl 25 MG Dicyclomine HCl 20 MG Dicyclomine HCl 20 MG No Dicyclomin e HCl 20 MG predniSONE 20 MG predniSONE 20 MG No predniSONE 20 MG traZODone HCl 50 MG traZODone HCl 50 MG No traZODone HCl 50 MG hydrALAZINE HCl 100 MG hydrALAZINE HCl 100 MG No hydrALAZIN E HCl 100 MG Pravastatin Sodium 40 MG Pravastatin Sodium 40 MG No Pravastati n Sodium 40 MG metFORMIN HCl 500 MG metFORMIN HCl 500 MG No QD metFORMIN HCl 500 MG metFORMIN HCl 1000 MG metFORMIN HCl 1000 MG No metFORMIN HCl 1000 MG glipiZIDE 10 MG glipiZIDE 10 MG No QD glipiZIDE 10 MG Cholestyram ine 4 GM Cholestyram ine 4 GM No 1{packe t_mixed _with_w ater_or _non-ca rbonate d_drink } QD Cholestyra mine 4 GM Valtrex 1 GM Valtrex 1 GM No 1{table t} QD Valtrex 1 GM NIFEdipine ER Osmotic Release 90 MG NIFEdipine ER Osmotic Release 90 MG No 1{table t} NIFEdipine ER Osmotic Release 90 MG glipiZIDE 10 MG glipiZIDE 10 MG No QD glipiZIDE 10 MG Combigan 0.2-0.5 % Combigan 0.2-0.5 % No Combigan 0.2-0.5 % metFORMIN HCl 500 MG metFORMIN HCl 500 MG No metFORMIN HCl 500 MG metFORMIN HCl 1000 MG metFORMIN HCl 1000 MG No BID metFORMIN HCl 1000 MG hydrOXYzine HCl 25 MG hydrOXYzine HCl 25 MG No hydrOXYzin e HCl 25 MG Dicyclomine HCl 20 MG Dicyclomine HCl 20 MG No Dicyclomin e HCl 20 MG predniSONE 20 MG predniSONE 20 MG No predniSONE 20 MG traZODone HCl 50 MG traZODone HCl 50 MG No traZODone HCl 50 MG hydrALAZINE HCl 100 MG hydrALAZINE HCl 100 MG No hydrALAZIN E HCl 100 MG Pravastatin Sodium 40 MG Pravastatin Sodium 40 MG No Pravastati n Sodium 40 MG metFORMIN HCl 500 MG metFORMIN HCl 500 MG No QD metFORMIN HCl 500 MG metFORMIN HCl 1000 MG metFORMIN HCl 1000 MG No metFORMIN HCl 1000 MG glipiZIDE 10 MG glipiZIDE 10 MG No QD glipiZIDE 10 MG Cholestyram ine 4 GM Cholestyram ine 4 GM No 1{packe t_mixed _with_w ater_or _non-ca rbonate d_drink } QD Cholestyra mine 4 GM Valtrex 1 GM Valtrex 1 GM No 1{table t} QD Valtrex 1 GM NIFEdipine ER Osmotic Release 90 MG NIFEdipine ER Osmotic Release 90 MG No 1{table t} NIFEdipine ER Osmotic Release 90 MG glipiZIDE 10 MG glipiZIDE 10 MG No QD glipiZIDE 10 MG Combigan 0.2-0.5 % Combigan 0.2-0.5 % No Combigan 0.2-0.5 % metFORMIN HCl 500 MG metFORMIN HCl 500 MG No metFORMIN HCl 500 MG metFORMIN HCl 1000 MG metFORMIN HCl 1000 MG No BID metFORMIN HCl 1000 MG hydrOXYzine HCl 25 MG hydrOXYzine HCl 25 MG No hydrOXYzin e HCl 25 MG Dicyclomine HCl 20 MG Dicyclomine HCl 20 MG No Dicyclomin e HCl 20 MG predniSONE 20 MG predniSONE 20 MG No predniSONE 20 MG traZODone HCl 50 MG traZODone HCl 50 MG No traZODone HCl 50 MG hydrALAZINE HCl 100 MG hydrALAZINE HCl 100 MG No hydrALAZIN E HCl 100 MG Pravastatin Sodium 40 MG Pravastatin Sodium 40 MG No Pravastati n Sodium 40 MG metFORMIN HCl 500 MG metFORMIN HCl 500 MG No QD metFORMIN HCl 500 MG metFORMIN HCl 1000 MG metFORMIN HCl 1000 MG No metFORMIN HCl 1000 MG glipiZIDE 10 MG glipiZIDE 10 MG No QD glipiZIDE 10 MG Cholestyram ine 4 GM Cholestyram ine 4 GM No 1{packe t_mixed _with_w ater_or _non-ca rbonate d_drink } QD Cholestyra mine 4 GM Valtrex 1 GM Valtrex 1 GM No 1{table t} QD Valtrex 1 GM NIFEdipine ER Osmotic Release 90 MG NIFEdipine ER Osmotic Release 90 MG No 1{table t} NIFEdipine ER Osmotic Release 90 MG glipiZIDE 10 MG glipiZIDE 10 MG No QD glipiZIDE 10 MG Combigan 0.2-0.5 % Combigan 0.2-0.5 % No Combigan 0.2-0.5 % metFORMIN HCl 500 MG metFORMIN HCl 500 MG No metFORMIN HCl 500 MG metFORMIN HCl 1000 MG metFORMIN HCl 1000 MG No BID metFORMIN HCl 1000 MG hydrOXYzine HCl 25 MG hydrOXYzine HCl 25 MG No hydrOXYzin e HCl 25 MG Dicyclomine HCl 20 MG Dicyclomine HCl 20 MG No Dicyclomin e HCl 20 MG predniSONE 20 MG predniSONE 20 MG No predniSONE 20 MG traZODone HCl 50 MG traZODone HCl 50 MG No traZODone HCl 50 MG hydrALAZINE HCl 100 MG hydrALAZINE HCl 100 MG No hydrALAZIN E HCl 100 MG Pravastatin Sodium 40 MG Pravastatin Sodium 40 MG No Pravastati n Sodium 40 MG metFORMIN HCl 500 MG metFORMIN HCl 500 MG No QD metFORMIN HCl 500 MG metFORMIN HCl 1000 MG metFORMIN HCl 1000 MG No metFORMIN HCl 1000 MG glipiZIDE 10 MG glipiZIDE 10 MG No QD glipiZIDE 10 MG Cholestyram ine 4 GM Cholestyram ine 4 GM No 1{packe t_mixed _with_w ater_or _non-ca rbonate d_drink } QD Cholestyra mine 4 GM Valtrex 1 GM Valtrex 1 GM No 1{table t} QD Valtrex 1 GM NIFEdipine ER Osmotic Release 90 MG NIFEdipine ER Osmotic Release 90 MG No 1{table t} NIFEdipine ER Osmotic Release 90 MG glipiZIDE 10 MG glipiZIDE 10 MG No QD glipiZIDE 10 MG Combigan 0.2-0.5 % Combigan 0.2-0.5 % No Combigan 0.2-0.5 % metFORMIN HCl 500 MG metFORMIN HCl 500 MG No metFORMIN HCl 500 MG metFORMIN HCl 1000 MG metFORMIN HCl 1000 MG No BID metFORMIN HCl 1000 MG hydrOXYzine HCl 25 MG hydrOXYzine HCl 25 MG No hydrOXYzin e HCl 25 MG Dicyclomine HCl 20 MG Dicyclomine HCl 20 MG No Dicyclomin e HCl 20 MG predniSONE 20 MG predniSONE 20 MG No predniSONE 20 MG traZODone HCl 50 MG traZODone HCl 50 MG No traZODone HCl 50 MG hydrALAZINE HCl 100 MG hydrALAZINE HCl 100 MG No hydrALAZIN E HCl 100 MG Pravastatin Sodium 40 MG Pravastatin Sodium 40 MG No Pravastati n Sodium 40 MG metFORMIN HCl 500 MG metFORMIN HCl 500 MG No QD metFORMIN HCl 500 MG metFORMIN HCl 1000 MG metFORMIN HCl 1000 MG No metFORMIN HCl 1000 MG glipiZIDE 10 MG glipiZIDE 10 MG No QD glipiZIDE 10 MG Cholestyram ine 4 GM Cholestyram ine 4 GM No 1{packe t_mixed _with_w ater_or _non-ca rbonate d_drink } QD Cholestyra mine 4 GM Valtrex 1 GM Valtrex 1 GM No 1{table t} QD Valtrex 1 GM NIFEdipine ER Osmotic Release 90 MG NIFEdipine ER Osmotic Release 90 MG No 1{table t} NIFEdipine ER Osmotic Release 90 MG glipiZIDE 10 MG glipiZIDE 10 MG No QD glipiZIDE 10 MG Combigan 0.2-0.5 % Combigan 0.2-0.5 % No Combigan 0.2-0.5 % metFORMIN HCl 500 MG metFORMIN HCl 500 MG No metFORMIN HCl 500 MG metFORMIN HCl 1000 MG metFORMIN HCl 1000 MG No BID metFORMIN HCl 1000 MG hydrOXYzine HCl 25 MG hydrOXYzine HCl 25 MG No hydrOXYzin e HCl 25 MG Dicyclomine HCl 20 MG Dicyclomine HCl 20 MG No Dicyclomin e HCl 20 MG predniSONE 20 MG predniSONE 20 MG No predniSONE 20 MG traZODone HCl 50 MG traZODone HCl 50 MG No traZODone HCl 50 MG hydrALAZINE HCl 100 MG hydrALAZINE HCl 100 MG No hydrALAZIN E HCl 100 MG Pravastatin Sodium 40 MG Pravastatin Sodium 40 MG No Pravastati n Sodium 40 MG metFORMIN HCl 500 MG metFORMIN HCl 500 MG No QD metFORMIN HCl 500 MG metFORMIN HCl 1000 MG metFORMIN HCl 1000 MG No metFORMIN HCl 1000 MG glipiZIDE 10 MG glipiZIDE 10 MG No QD glipiZIDE 10 MG Cholestyram ine 4 GM Cholestyram ine 4 GM No 1{packe t_mixed _with_w ater_or _non-ca rbonate d_drink } QD Cholestyra mine 4 GM Valtrex 1 GM Valtrex 1 GM No 1{table t} QD Valtrex 1 GM NIFEdipine ER Osmotic Release 90 MG NIFEdipine ER Osmotic Release 90 MG No 1{table t} NIFEdipine ER Osmotic Release 90 MG glipiZIDE 10 MG glipiZIDE 10 MG No QD glipiZIDE 10 MG Combigan 0.2-0.5 % Combigan 0.2-0.5 % No Combigan 0.2-0.5 % metFORMIN HCl 500 MG metFORMIN HCl 500 MG No metFORMIN HCl 500 MG metFORMIN HCl 1000 MG metFORMIN HCl 1000 MG No BID metFORMIN HCl 1000 MG hydrOXYzine HCl 25 MG hydrOXYzine HCl 25 MG No hydrOXYzin e HCl 25 MG Dicyclomine HCl 20 MG Dicyclomine HCl 20 MG No Dicyclomin e HCl 20 MG predniSONE 20 MG predniSONE 20 MG No predniSONE 20 MG traZODone HCl 50 MG traZODone HCl 50 MG No traZODone HCl 50 MG hydrALAZINE HCl 100 MG hydrALAZINE HCl 100 MG No hydrALAZIN E HCl 100 MG Pravastatin Sodium 40 MG Pravastatin Sodium 40 MG No Pravastati n Sodium 40 MG metFORMIN HCl 500 MG metFORMIN HCl 500 MG No QD metFORMIN HCl 500 MG metFORMIN HCl 1000 MG metFORMIN HCl 1000 MG No metFORMIN HCl 1000 MG glipiZIDE 10 MG glipiZIDE 10 MG No QD glipiZIDE 10 MG Cholestyram ine 4 GM Cholestyram ine 4 GM No 1{packe t_mixed _with_w ater_or _non-ca rbonate d_drink } QD Cholestyra mine 4 GM Valtrex 1 GM Valtrex 1 GM No 1{table t} QD Valtrex 1 GM NIFEdipine ER Osmotic Release 90 MG NIFEdipine ER Osmotic Release 90 MG No 1{table t} NIFEdipine ER Osmotic Release 90 MG glipiZIDE 10 MG glipiZIDE 10 MG No QD glipiZIDE 10 MG Combigan 0.2-0.5 % Combigan 0.2-0.5 % No Combigan 0.2-0.5 % metFORMIN HCl 500 MG metFORMIN HCl 500 MG No metFORMIN HCl 500 MG metFORMIN HCl 1000 MG metFORMIN HCl 1000 MG No BID metFORMIN HCl 1000 MG hydrOXYzine HCl 25 MG hydrOXYzine HCl 25 MG No hydrOXYzin e HCl 25 MG Dicyclomine HCl 20 MG Dicyclomine HCl 20 MG No Dicyclomin e HCl 20 MG predniSONE 20 MG predniSONE 20 MG No predniSONE 20 MG traZODone HCl 50 MG traZODone HCl 50 MG No traZODone HCl 50 MG hydrALAZINE HCl 100 MG hydrALAZINE HCl 100 MG No hydrALAZIN E HCl 100 MG Pravastatin Sodium 40 MG Pravastatin Sodium 40 MG No Pravastati n Sodium 40 MG metFORMIN HCl 500 MG metFORMIN HCl 500 MG No QD metFORMIN HCl 500 MG metFORMIN HCl 1000 MG metFORMIN HCl 1000 MG No metFORMIN HCl 1000 MG glipiZIDE 10 MG glipiZIDE 10 MG No QD glipiZIDE 10 MG Cholestyram ine 4 GM Cholestyram ine 4 GM No 1{packe t_mixed _with_w ater_or _non-ca rbonate d_drink } QD Cholestyra mine 4 GM Valtrex 1 GM Valtrex 1 GM No 1{table t} QD Valtrex 1 GM NIFEdipine ER Osmotic Release 90 MG NIFEdipine ER Osmotic Release 90 MG No 1{table t} NIFEdipine ER Osmotic Release 90 MG glipiZIDE 10 MG glipiZIDE 10 MG No QD glipiZIDE 10 MG Combigan 0.2-0.5 % Combigan 0.2-0.5 % No Combigan 0.2-0.5 % metFORMIN HCl 500 MG metFORMIN HCl 500 MG No metFORMIN HCl 500 MG metFORMIN HCl 1000 MG metFORMIN HCl 1000 MG No BID metFORMIN HCl 1000 MG hydrOXYzine HCl 25 MG hydrOXYzine HCl 25 MG No hydrOXYzin e HCl 25 MG Dicyclomine HCl 20 MG Dicyclomine HCl 20 MG No Dicyclomin e HCl 20 MG predniSONE 20 MG predniSONE 20 MG No predniSONE 20 MG Combigan 0.2-0.5 % Combigan 0.2-0.5 % No Combigan 0.2-0.5 % Dicyclomine HCl 20 MG Dicyclomine HCl 20 MG No Dicyclomin e HCl 20 MG metFORMIN HCl 500 MG metFORMIN HCl 500 MG No QD metFORMIN HCl 500 MG metFORMIN HCl 1000 MG metFORMIN HCl 1000 MG No BID metFORMIN HCl 1000 MG hydrOXYzine HCl 25 MG hydrOXYzine HCl 25 MG No hydrOXYzin e HCl 25 MG Valtrex 1 GM Valtrex 1 GM No 1{table t} QD Valtrex 1 GM NIFEdipine ER Osmotic Release 90 MG NIFEdipine ER Osmotic Release 90 MG No 1{table t} NIFEdipine ER Osmotic Release 90 MG Cholestyram ine 4 GM Cholestyram ine 4 GM No 1{packe t_mixed _with_w ater_or _non-ca rbonate d_drink } QD Cholestyra mine 4 GM hydrALAZINE HCl 100 MG hydrALAZINE HCl 100 MG No hydrALAZIN E HCl 100 MG predniSONE 20 MG predniSONE 20 MG No predniSONE 20 MG Pravastatin Sodium 40 MG Pravastatin Sodium 40 MG No Pravastati n Sodium 40 MG traZODone HCl 50 MG traZODone HCl 50 MG No traZODone HCl 50 MG metFORMIN HCl 500 MG metFORMIN HCl 500 MG No metFORMIN HCl 500 MG glipiZIDE 10 MG glipiZIDE 10 MG No QD glipiZIDE 10 MG metFORMIN HCl 1000 MG metFORMIN HCl 1000 MG No metFORMIN HCl 1000 MG glipiZIDE 10 MG glipiZIDE 10 MG No QD glipiZIDE 10 MG metFORMIN HCl 500 MG metFORMIN HCl 500 MG No metFORMIN HCl 500 MG hydrALAZINE HCl 100 MG hydrALAZINE HCl 100 MG No hydrALAZIN E HCl 100 MG Dicyclomine HCl 20 MG Dicyclomine HCl 20 MG No Dicyclomin e HCl 20 MG Pravastatin Sodium 40 MG Pravastatin Sodium 40 MG No Pravastati n Sodium 40 MG metFORMIN HCl 1000 MG metFORMIN HCl 1000 MG No metFORMIN HCl 1000 MG Cholestyram ine 4 GM Cholestyram ine 4 GM No 1{packe t_mixed _with_w ater_or _non-ca rbonate d_drink } QD Cholestyra mine 4 GM NIFEdipine ER Osmotic Release 90 MG NIFEdipine ER Osmotic Release 90 MG No NIFEdipine ER Osmotic Release 90 MG Valtrex 1 GM Valtrex 1 GM No 1{table t} QD Valtrex 1 GM Combigan 0.2-0.5 % Combigan 0.2-0.5 % No Combigan 0.2-0.5 % hydrOXYzine HCl 25 MG hydrOXYzine HCl 25 MG No hydrOXYzin e HCl 25 MG traZODone HCl 50 MG traZODone HCl 50 MG No QD traZODone HCl 50 MG glipiZIDE 10 MG glipiZIDE 10 MG No QD glipiZIDE 10 MG predniSONE 20 MG predniSONE 20 MG No predniSONE 20 MG metFORMIN HCl 500 MG metFORMIN HCl 500 MG No QD metFORMIN HCl 500 MG metFORMIN HCl 1000 MG metFORMIN HCl 1000 MG No BID metFORMIN HCl 1000 MG glipiZIDE 10 MG glipiZIDE 10 MG No QD glipiZIDE 10 MG metFORMIN HCl 500 MG metFORMIN HCl 500 MG No metFORMIN HCl 500 MG hydrALAZINE HCl 100 MG hydrALAZINE HCl 100 MG No hydrALAZIN E HCl 100 MG Dicyclomine HCl 20 MG Dicyclomine HCl 20 MG No Dicyclomin e HCl 20 MG Pravastatin Sodium 40 MG Pravastatin Sodium 40 MG No Pravastati n Sodium 40 MG metFORMIN HCl 1000 MG metFORMIN HCl 1000 MG No metFORMIN HCl 1000 MG Cholestyram ine 4 GM Cholestyram ine 4 GM No 1{packe t_mixed _with_w ater_or _non-ca rbonate d_drink } QD Cholestyra mine 4 GM NIFEdipine ER Osmotic Release 90 MG NIFEdipine ER Osmotic Release 90 MG No NIFEdipine ER Osmotic Release 90 MG Valtrex 1 GM Valtrex 1 GM No 1{table t} QD Valtrex 1 GM Combigan 0.2-0.5 % Combigan 0.2-0.5 % No Combigan 0.2-0.5 % hydrOXYzine HCl 25 MG hydrOXYzine HCl 25 MG No hydrOXYzin e HCl 25 MG traZODone HCl 50 MG traZODone HCl 50 MG No QD traZODone HCl 50 MG glipiZIDE 10 MG glipiZIDE 10 MG No QD glipiZIDE 10 MG predniSONE 20 MG predniSONE 20 MG No predniSONE 20 MG metFORMIN HCl 500 MG metFORMIN HCl 500 MG No QD metFORMIN HCl 500 MG metFORMIN HCl 1000 MG metFORMIN HCl 1000 MG No BID metFORMIN HCl 1000 MG glipiZIDE 10 MG glipiZIDE 10 MG No QD glipiZIDE 10 MG metFORMIN HCl 500 MG metFORMIN HCl 500 MG No metFORMIN HCl 500 MG hydrALAZINE HCl 100 MG hydrALAZINE HCl 100 MG No hydrALAZIN E HCl 100 MG Dicyclomine HCl 20 MG Dicyclomine HCl 20 MG No Dicyclomin e HCl 20 MG Pravastatin Sodium 40 MG Pravastatin Sodium 40 MG No Pravastati n Sodium 40 MG metFORMIN HCl 1000 MG metFORMIN HCl 1000 MG No metFORMIN HCl 1000 MG Cholestyram ine 4 GM Cholestyram ine 4 GM No 1{packe t_mixed _with_w ater_or _non-ca rbonate d_drink } QD Cholestyra mine 4 GM NIFEdipine ER Osmotic Release 90 MG NIFEdipine ER Osmotic Release 90 MG No NIFEdipine ER Osmotic Release 90 MG Valtrex 1 GM Valtrex 1 GM No 1{table t} QD Valtrex 1 GM Combigan 0.2-0.5 % Combigan 0.2-0.5 % No Combigan 0.2-0.5 % hydrOXYzine HCl 25 MG hydrOXYzine HCl 25 MG No hydrOXYzin e HCl 25 MG traZODone HCl 50 MG traZODone HCl 50 MG No QD traZODone HCl 50 MG glipiZIDE 10 MG glipiZIDE 10 MG No QD glipiZIDE 10 MG predniSONE 20 MG predniSONE 20 MG No predniSONE 20 MG metFORMIN HCl 500 MG metFORMIN HCl 500 MG No QD metFORMIN HCl 500 MG metFORMIN HCl 1000 MG metFORMIN HCl 1000 MG No BID metFORMIN HCl 1000 MG glipiZIDE 10 MG glipiZIDE 10 MG No QD glipiZIDE 10 MG Pravastatin Sodium 40 MG Pravastatin Sodium 40 MG No Pravastati n Sodium 40 MG Cholestyram ine 4 GM Cholestyram ine 4 GM No 1{packe t_mixed _with_w ater_or _non-ca rbonate d_drink } QD Cholestyra mine 4 GM Dicyclomine HCl 20 MG Dicyclomine HCl 20 MG No Dicyclomin e HCl 20 MG hydrALAZINE HCl 100 MG hydrALAZINE HCl 100 MG No hydrALAZIN E HCl 100 MG metFORMIN HCl 1000 MG metFORMIN HCl 1000 MG No metFORMIN HCl 1000 MG metFORMIN HCl 500 MG metFORMIN HCl 500 MG No QD metFORMIN HCl 500 MG NIFEdipine ER Osmotic Release 90 MG NIFEdipine ER Osmotic Release 90 MG No NIFEdipine ER Osmotic Release 90 MG Valtrex 1 GM Valtrex 1 GM No 1{table t} QD Valtrex 1 GM Combigan 0.2-0.5 % Combigan 0.2-0.5 % No Combigan 0.2-0.5 % traZODone HCl 50 MG traZODone HCl 50 MG No QD traZODone HCl 50 MG glipiZIDE 10 MG glipiZIDE 10 MG No QD glipiZIDE 10 MG predniSONE 20 MG predniSONE 20 MG No predniSONE 20 MG hydrOXYzine HCl 25 MG hydrOXYzine HCl 25 MG No hydrOXYzin e HCl 25 MG metFORMIN HCl 1000 MG metFORMIN HCl 1000 MG No BID metFORMIN HCl 1000 MG glipiZIDE 10 MG glipiZIDE 10 MG No QD glipiZIDE 10 MG metFORMIN HCl 500 MG metFORMIN HCl 500 MG No metFORMIN HCl 500 MG hydrOXYzine HCl 25 MG hydrOXYzine HCl 25 MG No hydrOXYzin e HCl 25 MG metFORMIN HCl 1000 MG metFORMIN HCl 1000 MG No BID metFORMIN HCl 1000 MG Combigan 0.2-0.5 % Combigan 0.2-0.5 % No Combigan 0.2-0.5 % Cholestyram ine 4 GM Cholestyram ine 4 GM No 1{packe t_mixed _with_w ater_or _non-ca rbonate d_drink } QD Cholestyra mine 4 GM hydrOXYzine HCl 25 MG hydrOXYzine HCl 25 MG No hydrOXYzin e HCl 25 MG Valtrex 1 GM Valtrex 1 GM No 1{table t} QD Valtrex 1 GM NIFEdipine ER Osmotic Release 90 MG NIFEdipine ER Osmotic Release 90 MG No NIFEdipine ER Osmotic Release 90 MG Dicyclomine HCl 20 MG Dicyclomine HCl 20 MG No Dicyclomin e HCl 20 MG predniSONE 20 MG predniSONE 20 MG No predniSONE 20 MG Pravastatin Sodium 40 MG Pravastatin Sodium 40 MG No Pravastati n Sodium 40 MG hydrALAZINE HCl 100 MG hydrALAZINE HCl 100 MG No hydrALAZIN E HCl 100 MG traZODone HCl 50 MG traZODone HCl 50 MG No QD traZODone HCl 50 MG glipiZIDE 10 MG glipiZIDE 10 MG No QD glipiZIDE 10 MG metFORMIN HCl 500 MG metFORMIN HCl 500 MG No QD metFORMIN HCl 500 MG hydrOXYzine HCl 25 MG hydrOXYzine HCl 25 MG No hydrOXYzin e HCl 25 MG metFORMIN HCl 1000 MG metFORMIN HCl 1000 MG No BID metFORMIN HCl 1000 MG Combigan 0.2-0.5 % Combigan 0.2-0.5 % No Combigan 0.2-0.5 % Cholestyram ine 4 GM Cholestyram ine 4 GM No 1{packe t_mixed _with_w ater_or _non-ca rbonate d_drink } QD Cholestyra mine 4 GM hydrOXYzine HCl 25 MG hydrOXYzine HCl 25 MG No hydrOXYzin e HCl 25 MG Valtrex 1 GM Valtrex 1 GM No 1{table t} QD Valtrex 1 GM NIFEdipine ER Osmotic Release 90 MG NIFEdipine ER Osmotic Release 90 MG No NIFEdipine ER Osmotic Release 90 MG Dicyclomine HCl 20 MG Dicyclomine HCl 20 MG No Dicyclomin e HCl 20 MG predniSONE 20 MG predniSONE 20 MG No predniSONE 20 MG Pravastatin Sodium 40 MG Pravastatin Sodium 40 MG No Pravastati n Sodium 40 MG hydrALAZINE HCl 100 MG hydrALAZINE HCl 100 MG No hydrALAZIN E HCl 100 MG traZODone HCl 50 MG traZODone HCl 50 MG No QD traZODone HCl 50 MG glipiZIDE 10 MG glipiZIDE 10 MG No QD glipiZIDE 10 MG metFORMIN HCl 500 MG metFORMIN HCl 500 MG No QD metFORMIN HCl 500 MG Esomeprazol e Magnesium 40 MG Esomeprazol e Magnesium 40 MG No 1{capsu le} QD Esomeprazo le Magnesium 40 MG Combigan 0.2-0.5 % Combigan 0.2-0.5 % No Combigan 0.2-0.5 % predniSONE 20 MG predniSONE 20 MG No predniSONE 20 MG NIFEdipine ER Osmotic Release 90 MG NIFEdipine ER Osmotic Release 90 MG No NIFEdipine ER Osmotic Release 90 MG glipiZIDE 10 MG glipiZIDE 10 MG No QD glipiZIDE 10 MG metFORMIN HCl 1000 MG metFORMIN HCl 1000 MG No BID metFORMIN HCl 1000 MG Valtrex 1 GM Valtrex 1 GM No 1{table t} QD Valtrex 1 GM hydrOXYzine HCl 25 MG hydrOXYzine HCl 25 MG No 1{table t} TID hydrOXYzin e HCl 25 MG hydrALAZINE HCl 100 MG hydrALAZINE HCl 100 MG No hydrALAZIN E HCl 100 MG Toujeo Max SoloStar 300 UNIT/ML Toujeo Max SoloStar 300 UNIT/ML No Toujeo Max SoloStar 300 UNIT/ML traZODone HCl 50 MG traZODone HCl 50 MG No 1{table t_at_be dtime_a s_neede d} QD traZODone HCl 50 MG Cholestyram ine 4 GM Cholestyram ine 4 GM No 1{packe t_mixed _with_w ater_or _non-ca rbonate d_drink } QD Cholestyra mine 4 GM Pravastatin Sodium 40 MG Pravastatin Sodium 40 MG No 1{table t} QD Pravastati n Sodium 40 MG Dicyclomine HCl 20 MG Dicyclomine HCl 20 MG No Dicyclomin e HCl 20 MG metFORMIN HCl 500 MG metFORMIN HCl 500 MG No QD metFORMIN HCl 500 MG Doxycycline Hyclate 100 MG Doxycycline Hyclate 100 MG No 1{table t} BID Doxycyclin e Hyclate 100 MG hydroCHLORO thiazide 25 MG hydroCHLORO thiazide 25 MG No 1{table t_in_ e_morni ng} QD hydroCHLOR Othiazide 25 MG Pravastatin Sodium 40 MG Pravastatin Sodium 40 MG No QD Pravastati n Sodium 40 MG hydrOXYzine HCl 25 MG hydrOXYzine HCl 25 MG No TID hydrOXYzin e HCl 25 MG metFORMIN HCl 500 MG metFORMIN HCl 500 MG No 1{table t_with_ a_meal} QD metFORMIN HCl 500 MG metFORMIN HCl 1000 MG metFORMIN HCl 1000 MG No 1{table t_with_ a_meal} BID metFORMIN HCl 1000 MG Ciprofloxac in HCl 500 MG Ciprofloxac in HCl 500 MG No 1{table t} BID Ciprofloxa hardik HCl 500 MG predniSONE 20 MG predniSONE 20 MG No 1{table t} QD predniSONE 20 MG traZODone HCl 50 MG traZODone HCl 50 MG No 1{table t_at_be dtime_a s_neede d} QD traZODone HCl 50 MG Cholestyram ine 4 GM Cholestyram ine 4 GM No 1{packe t_mixed _with_w ater_or _non-ca rbonate d_drink } QD Cholestyra mine 4 GM Valtrex 1 GM Valtrex 1 GM No 1{table t} QD Valtrex 1 GM Mupirocin 2 % Mupirocin 2 % No 1{appli cation} QD Mupirocin 2 % Combigan 0.2-0.5 % Combigan 0.2-0.5 % No Combigan 0.2-0.5 % glipiZIDE 10 MG glipiZIDE 10 MG No QD glipiZIDE 10 MG NIFEdipine ER Osmotic Release 90 MG NIFEdipine ER Osmotic Release 90 MG No 1{table t} QD NIFEdipine ER Osmotic Release 90 MG Esomeprazol e Magnesium 40 MG Esomeprazol e Magnesium 40 MG No 1{capsu le} QD Esomeprazo le Magnesium 40 MG Toujeo Max SoloStar 300 UNIT/ML Toujeo Max SoloStar 300 UNIT/ML No QD Toujeo Max SoloStar 300 UNIT/ML hydrALAZINE HCl 100 MG hydrALAZINE HCl 100 MG No 1{table t_with_ food} TID hydrALAZIN E HCl 100 MG Dicyclomine HCl 20 MG Dicyclomine HCl 20 MG No Dicyclomin e HCl 20 MG Toujeo Max SoloStar 300 UNIT/ML Toujeo Max SoloStar 300 UNIT/ML No QD Toujeo Max SoloStar 300 UNIT/ML Doxycycline Hyclate 100 MG Doxycycline Hyclate 100 MG No 1{table t} BID Doxycyclin e Hyclate 100 MG hydroCHLORO thiazide 25 MG hydroCHLORO thiazide 25 MG No 1{table t_in_th e_morni ng} QD hydroCHLOR Othiazide 25 MG Pravastatin Sodium 40 MG Pravastatin Sodium 40 MG No QD Pravastati n Sodium 40 MG Valtrex 1 GM Valtrex 1 GM No 1{table t} QD Valtrex 1 GM metFORMIN HCl 500 MG metFORMIN HCl 500 MG No 1{table t_with_ a_meal} QD metFORMIN HCl 500 MG Mupirocin 2 % Mupirocin 2 % No 1{appli cation} QD Mupirocin 2 % metFORMIN HCl 1000 MG metFORMIN HCl 1000 MG No 1{table t_with_ a_meal} BID metFORMIN HCl 1000 MG predniSONE 20 MG predniSONE 20 MG No 1{table t} QD predniSONE 20 MG Ciprofloxac in HCl 500 MG Ciprofloxac in HCl 500 MG No 1{table t} BID Ciprofloxa hardik HCl 500 MG Cholestyram ine 4 GM Cholestyram ine 4 GM No 1{packe t_mixed _with_w ater_or _non-ca rbonate d_drink } QD Cholestyra mine 4 GM hydrALAZINE HCl 100 MG hydrALAZINE HCl 100 MG No 1{table t_with_ food} TID hydrALAZIN E HCl 100 MG Dicyclomine HCl 20 MG Dicyclomine HCl 20 MG No Dicyclomin e HCl 20 MG glipiZIDE 10 MG glipiZIDE 10 MG No QD glipiZIDE 10 MG hydrOXYzine HCl 25 MG hydrOXYzine HCl 25 MG No TID hydrOXYzin e HCl 25 MG Combigan 0.2-0.5 % Combigan 0.2-0.5 % No Combigan 0.2-0.5 % NIFEdipine ER Osmotic Release 90 MG NIFEdipine ER Osmotic Release 90 MG No 1{table t} QD NIFEdipine ER Osmotic Release 90 MG Esomeprazol e Magnesium 40 MG Esomeprazol e Magnesium 40 MG No 1{capsu le} QD Esomeprazo le Magnesium 40 MG traZODone HCl 50 MG traZODone HCl 50 MG No 1{table t_at_be dtime_a s_neede d} QD traZODone HCl 50 MG NIFEdipine ER Osmotic Release 90 MG NIFEdipine ER Osmotic Release 90 MG No NIFEdipine ER Osmotic Release 90 MG Toujeo Max SoloStar 300 UNIT/ML Toujeo Max SoloStar 300 UNIT/ML No QD Toujeo Max SoloStar 300 UNIT/ML Doxycycline Hyclate 100 MG Doxycycline Hyclate 100 MG No 1{table t} BID Doxycyclin e Hyclate 100 MG hydroCHLORO thiazide 25 MG hydroCHLORO thiazide 25 MG No 1{table t_in_ e_morni ng} QD hydroCHLOR Othiazide 25 MG Pravastatin Sodium 40 MG Pravastatin Sodium 40 MG No QD Pravastati n Sodium 40 MG metFORMIN HCl 1000 MG metFORMIN HCl 1000 MG No 1{table t_with_ a_meal} BID metFORMIN HCl 1000 MG Valtrex 1 GM Valtrex 1 GM No 1{table t} QD Valtrex 1 GM metFORMIN HCl 500 MG metFORMIN HCl 500 MG No 1{table t_with_ a_meal} QD metFORMIN HCl 500 MG Mupirocin 2 % Mupirocin 2 % No 1{appli cation} QD Mupirocin 2 % metFORMIN HCl 1000 MG metFORMIN HCl 1000 MG No 1{table t_with_ a_meal} BID metFORMIN HCl 1000 MG predniSONE 20 MG predniSONE 20 MG No 1{table t} QD predniSONE 20 MG Ciprofloxac in HCl 500 MG Ciprofloxac in HCl 500 MG No 1{table t} BID Ciprofloxa hardik HCl 500 MG Cholestyram ine 4 GM Cholestyram ine 4 GM No 1{packe t_mixed _with_w ater_or _non-ca rbonate d_drink } QD Cholestyra mine 4 GM hydrALAZINE HCl 100 MG hydrALAZINE HCl 100 MG No 1{table t_with_ food} TID hydrALAZIN E HCl 100 MG Dicyclomine HCl 20 MG Dicyclomine HCl 20 MG No Dicyclomin e HCl 20 MG glipiZIDE 10 MG glipiZIDE 10 MG No QD glipiZIDE 10 MG hydrOXYzine HCl 25 MG hydrOXYzine HCl 25 MG No TID hydrOXYzin e HCl 25 MG Combigan 0.2-0.5 % Combigan 0.2-0.5 % No Combigan 0.2-0.5 % NIFEdipine ER Osmotic Release 90 MG NIFEdipine ER Osmotic Release 90 MG No 1{table t} QD NIFEdipine ER Osmotic Release 90 MG Esomeprazol e Magnesium 40 MG Esomeprazol e Magnesium 40 MG No 1{capsu le} QD Esomeprazo le Magnesium 40 MG traZODone HCl 50 MG traZODone HCl 50 MG No 1{table t_at_be dtime_a s_neede d} QD traZODone HCl 50 MG Pravastatin Sodium 40 MG Pravastatin Sodium 40 MG No Pravastati n Sodium 40 MG Toujeo Max SoloStar 300 UNIT/ML Toujeo Max SoloStar 300 UNIT/ML No QD Toujeo Max SoloStar 300 UNIT/ML Doxycycline Hyclate 100 MG Doxycycline Hyclate 100 MG No 1{table t} BID Doxycyclin e Hyclate 100 MG hydroCHLORO thiazide 25 MG hydroCHLORO thiazide 25 MG No 1{table t_in_th e_morni ng} QD hydroCHLOR Othiazide 25 MG Pravastatin Sodium 40 MG Pravastatin Sodium 40 MG No QD Pravastati n Sodium 40 MG Valtrex 1 GM Valtrex 1 GM No 1{table t} QD Valtrex 1 GM metFORMIN HCl 500 MG metFORMIN HCl 500 MG No 1{table t_with_ a_meal} QD metFORMIN HCl 500 MG Valtrex 1 GM Valtrex 1 GM No 1{table t} QD Valtrex 1 GM Mupirocin 2 % Mupirocin 2 % No 1{appli cation} QD Mupirocin 2 % metFORMIN HCl 1000 MG metFORMIN HCl 1000 MG No 1{table t_with_ a_meal} BID metFORMIN HCl 1000 MG predniSONE 20 MG predniSONE 20 MG No 1{table t} QD predniSONE 20 MG Ciprofloxac in HCl 500 MG Ciprofloxac in HCl 500 MG No 1{table t} BID Ciprofloxa hardik HCl 500 MG Cholestyram ine 4 GM Cholestyram ine 4 GM No 1{packe t_mixed _with_w ater_or _non-ca rbonate d_drink } QD Cholestyra mine 4 GM hydrALAZINE HCl 100 MG hydrALAZINE HCl 100 MG No 1{table t_with_ food} TID hydrALAZIN E HCl 100 MG Dicyclomine HCl 20 MG Dicyclomine HCl 20 MG No Dicyclomin e HCl 20 MG glipiZIDE 10 MG glipiZIDE 10 MG No QD glipiZIDE 10 MG hydrOXYzine HCl 25 MG hydrOXYzine HCl 25 MG No TID hydrOXYzin e HCl 25 MG Combigan 0.2-0.5 % Combigan 0.2-0.5 % No Combigan 0.2-0.5 % NIFEdipine ER Osmotic Release 90 MG NIFEdipine ER Osmotic Release 90 MG No 1{table t} QD NIFEdipine ER Osmotic Release 90 MG Esomeprazol e Magnesium 40 MG Esomeprazol e Magnesium 40 MG No 1{capsu le} QD Esomeprazo le Magnesium 40 MG traZODone HCl 50 MG traZODone HCl 50 MG No 1{table t_at_be dtime_a s_neede d} QD traZODone HCl 50 MG metFORMIN HCl 500 MG metFORMIN HCl 500 MG No metFORMIN HCl 500 MG Toujeo Max SoloStar 300 UNIT/ML Toujeo Max SoloStar 300 UNIT/ML No QD Toujeo Max SoloStar 300 UNIT/ML Doxycycline Hyclate 100 MG Doxycycline Hyclate 100 MG No 1{table t} BID Doxycyclin e Hyclate 100 MG hydroCHLORO thiazide 25 MG hydroCHLORO thiazide 25 MG No 1{table t_in_th e_morni ng} QD hydroCHLOR Othiazide 25 MG Pravastatin Sodium 40 MG Pravastatin Sodium 40 MG No QD Pravastati n Sodium 40 MG Valtrex 1 GM Valtrex 1 GM No 1{table t} QD Valtrex 1 GM metFORMIN HCl 500 MG metFORMIN HCl 500 MG No 1{table t_with_ a_meal} QD metFORMIN HCl 500 MG Mupirocin 2 % Mupirocin 2 % No 1{appli cation} QD Mupirocin 2 % metFORMIN HCl 1000 MG metFORMIN HCl 1000 MG No 1{table t_with_ a_meal} BID metFORMIN HCl 1000 MG predniSONE 20 MG predniSONE 20 MG No 1{table t} QD predniSONE 20 MG Basaglar KwikPen 100 UNIT/ML Basaglar KwikPen 100 UNIT/ML No Basaglar KwikPen 100 UNIT/ML Ciprofloxac in HCl 500 MG Ciprofloxac in HCl 500 MG No 1{table t} BID Ciprofloxa hardik HCl 500 MG Cholestyram ine 4 GM Cholestyram ine 4 GM No 1{packe t_mixed _with_w ater_or _non-ca rbonate d_drink } QD Cholestyra mine 4 GM hydrALAZINE HCl 100 MG hydrALAZINE HCl 100 MG No 1{table t_with_ food} TID hydrALAZIN E HCl 100 MG Dicyclomine HCl 20 MG Dicyclomine HCl 20 MG No Dicyclomin e HCl 20 MG glipiZIDE 10 MG glipiZIDE 10 MG No QD glipiZIDE 10 MG hydrOXYzine HCl 25 MG hydrOXYzine HCl 25 MG No TID hydrOXYzin e HCl 25 MG Combigan 0.2-0.5 % Combigan 0.2-0.5 % No Combigan 0.2-0.5 % NIFEdipine ER Osmotic Release 90 MG NIFEdipine ER Osmotic Release 90 MG No 1{table t} QD NIFEdipine ER Osmotic Release 90 MG hydrALAZINE HCl 100 MG hydrALAZINE HCl 100 MG No hydrALAZIN E HCl 100 MG Esomeprazol e Magnesium 40 MG Esomeprazol e Magnesium 40 MG No 1{capsu le} QD Esomeprazo le Magnesium 40 MG traZODone HCl 50 MG traZODone HCl 50 MG No 1{table t_at_be dtime_a s_neede d} QD traZODone HCl 50 MG Toujeo Max SoloStar 300 UNIT/ML Toujeo Max SoloStar 300 UNIT/ML No QD Toujeo Max SoloStar 300 UNIT/ML Doxycycline Hyclate 100 MG Doxycycline Hyclate 100 MG No 1{table t} BID Doxycyclin e Hyclate 100 MG glipiZIDE 10 MG glipiZIDE 10 MG No glipiZIDE 10 MG hydroCHLORO thiazide 25 MG hydroCHLORO thiazide 25 MG No 1{table t_in_th e_morni ng} QD hydroCHLOR Othiazide 25 MG Pravastatin Sodium 40 MG Pravastatin Sodium 40 MG No QD Pravastati n Sodium 40 MG Valtrex 1 GM Valtrex 1 GM No 1{table t} QD Valtrex 1 GM metFORMIN HCl 500 MG metFORMIN HCl 500 MG No 1{table t_with_ a_meal} QD metFORMIN HCl 500 MG Mupirocin 2 % Mupirocin 2 % No 1{appli cation} QD Mupirocin 2 % metFORMIN HCl 1000 MG metFORMIN HCl 1000 MG No 1{table t_with_ a_meal} BID metFORMIN HCl 1000 MG predniSONE 20 MG predniSONE 20 MG No 1{table t} QD predniSONE 20 MG Ciprofloxac in HCl 500 MG Ciprofloxac in HCl 500 MG No 1{table t} BID Ciprofloxa hardik HCl 500 MG predniSONE 20 MG predniSONE 20 MG No predniSONE 20 MG Cholestyram ine 4 GM Cholestyram ine 4 GM No 1{packe t_mixed _with_w ater_or _non-ca rbonate d_drink } QD Cholestyra mine 4 GM hydrALAZINE HCl 100 MG hydrALAZINE HCl 100 MG No 1{table t_with_ food} TID hydrALAZIN E HCl 100 MG Dicyclomine HCl 20 MG Dicyclomine HCl 20 MG No Dicyclomin e HCl 20 MG glipiZIDE 10 MG glipiZIDE 10 MG No QD glipiZIDE 10 MG Sildenafil Citrate 100 MG Sildenafil Citrate 100 MG No Sildenafil Citrate 100 MG Combigan 0.2-0.5 % Combigan 0.2-0.5 % No Combigan 0.2-0.5 % NIFEdipine ER Osmotic Release 90 MG NIFEdipine ER Osmotic Release 90 MG No 1{table t} QD NIFEdipine ER Osmotic Release 90 MG Esomeprazol e Magnesium 40 MG Esomeprazol e Magnesium 40 MG No 1{capsu le} QD Esomeprazo le Magnesium 40 MG traZODone HCl 50 MG traZODone HCl 50 MG No 1{table t_at_be dtime_a s_neede d} QD traZODone HCl 50 MG hydrOXYzine HCl 25 MG hydrOXYzine HCl 25 MG No TID hydrOXYzin e HCl 25 MG Solifenacin Succinate 5 MG Solifenacin Succinate 5 MG No 1{table t} QD Solifenaci n Succinate 5 MG Toujeo Max SoloStar 300 UNIT/ML Toujeo Max SoloStar 300 UNIT/ML No QD Toujeo Max SoloStar 300 UNIT/ML Doxycycline Hyclate 100 MG Doxycycline Hyclate 100 MG No 1{table t} BID Doxycyclin e Hyclate 100 MG hydroCHLORO thiazide 25 MG hydroCHLORO thiazide 25 MG No 1{table t_in_th e_morni ng} QD hydroCHLOR Othiazide 25 MG Pravastatin Sodium 40 MG Pravastatin Sodium 40 MG No QD Pravastati n Sodium 40 MG Valtrex 1 GM Valtrex 1 GM No 1{table t} QD Valtrex 1 GM metFORMIN HCl 1000 MG metFORMIN HCl 1000 MG No 1{table t_with_ a_meal} BID metFORMIN HCl 1000 MG metFORMIN HCl 500 MG metFORMIN HCl 500 MG No 1{table t_with_ a_meal} QD metFORMIN HCl 500 MG Mupirocin 2 % Mupirocin 2 % No 1{appli cation} QD Mupirocin 2 % metFORMIN HCl 1000 MG metFORMIN HCl 1000 MG No 1{table t_with_ a_meal} BID metFORMIN HCl 1000 MG predniSONE 20 MG predniSONE 20 MG No 1{table t} QD predniSONE 20 MG Ciprofloxac in HCl 500 MG Ciprofloxac in HCl 500 MG No 1{table t} BID Ciprofloxa hardik HCl 500 MG Cholestyram ine 4 GM Cholestyram ine 4 GM No 1{packe t_mixed _with_w ater_or _non-ca rbonate d_drink } QD Cholestyra mine 4 GM hydrALAZINE HCl 100 MG hydrALAZINE HCl 100 MG No 1{table t_with_ food} TID hydrALAZIN E HCl 100 MG Dicyclomine HCl 20 MG Dicyclomine HCl 20 MG No Dicyclomin e HCl 20 MG hydrOXYzine HCl 25 MG hydrOXYzine HCl 25 MG No hydrOXYzin e HCl 25 MG glipiZIDE 10 MG glipiZIDE 10 MG No QD glipiZIDE 10 MG Sildenafil Citrate 100 MG Sildenafil Citrate 100 MG No Sildenafil Citrate 100 MG Combigan 0.2-0.5 % Combigan 0.2-0.5 % No Combigan 0.2-0.5 % NIFEdipine ER Osmotic Release 90 MG NIFEdipine ER Osmotic Release 90 MG No 1{table t} QD NIFEdipine ER Osmotic Release 90 MG Esomeprazol e Magnesium 40 MG Esomeprazol e Magnesium 40 MG No 1{capsu le} QD Esomeprazo le Magnesium 40 MG traZODone HCl 50 MG traZODone HCl 50 MG No 1{table t_at_be dtime_a s_neede d} QD traZODone HCl 50 MG hydrOXYzine HCl 25 MG hydrOXYzine HCl 25 MG No TID hydrOXYzin e HCl 25 MG Toujeo Max SoloStar 300 UNIT/ML Toujeo Max SoloStar 300 UNIT/ML No QD Toujeo Max SoloStar 300 UNIT/ML Doxycycline Hyclate 100 MG Doxycycline Hyclate 100 MG No 1{table t} BID Doxycyclin e Hyclate 100 MG hydroCHLORO thiazide 25 MG hydroCHLORO thiazide 25 MG No 1{table t_in_th e_morni ng} QD hydroCHLOR Othiazide 25 MG Pravastatin Sodium 40 MG Pravastatin Sodium 40 MG No QD Pravastati n Sodium 40 MG Valtrex 1 GM Valtrex 1 GM No 1{table t} QD Valtrex 1 GM metFORMIN HCl 500 MG metFORMIN HCl 500 MG No 1{table t_with_ a_meal} QD metFORMIN HCl 500 MG Mupirocin 2 % Mupirocin 2 % No 1{appli cation} QD Mupirocin 2 % metFORMIN HCl 1000 MG metFORMIN HCl 1000 MG No 1{table t_with_ a_meal} BID metFORMIN HCl 1000 MG predniSONE 20 MG predniSONE 20 MG No 1{table t} QD predniSONE 20 MG Ciprofloxac in HCl 500 MG Ciprofloxac in HCl 500 MG No 1{table t} BID Ciprofloxa hardik HCl 500 MG Cholestyram ine 4 GM Cholestyram ine 4 GM No 1{packe t_mixed _with_w ater_or _non-ca rbonate d_drink } QD Cholestyra mine 4 GM hydrALAZINE HCl 100 MG hydrALAZINE HCl 100 MG No 1{table t_with_ food} TID hydrALAZIN E HCl 100 MG Dicyclomine HCl 20 MG Dicyclomine HCl 20 MG No Dicyclomin e HCl 20 MG glipiZIDE 10 MG glipiZIDE 10 MG No QD glipiZIDE 10 MG Sildenafil Citrate 100 MG Sildenafil Citrate 100 MG No Sildenafil Citrate 100 MG Combigan 0.2-0.5 % Combigan 0.2-0.5 % No Combigan 0.2-0.5 % NIFEdipine ER Osmotic Release 90 MG NIFEdipine ER Osmotic Release 90 MG No 1{table t} QD NIFEdipine ER Osmotic Release 90 MG Esomeprazol e Magnesium 40 MG Esomeprazol e Magnesium 40 MG No 1{capsu le} QD Esomeprazo le Magnesium 40 MG traZODone HCl 50 MG traZODone HCl 50 MG No 1{table t_at_be dtime_a s_neede d} QD traZODone HCl 50 MG hydrOXYzine HCl 25 MG hydrOXYzine HCl 25 MG No TID hydrOXYzin e HCl 25 MG Toujeo Max SoloStar 300 UNIT/ML Toujeo Max SoloStar 300 UNIT/ML No QD Toujeo Max SoloStar 300 UNIT/ML Doxycycline Hyclate 100 MG Doxycycline Hyclate 100 MG No 1{table t} BID Doxycyclin e Hyclate 100 MG hydroCHLORO thiazide 25 MG hydroCHLORO thiazide 25 MG No 1{table t_in_th e_morni ng} QD hydroCHLOR Othiazide 25 MG Pravastatin Sodium 40 MG Pravastatin Sodium 40 MG No QD Pravastati n Sodium 40 MG Valtrex 1 GM Valtrex 1 GM No 1{table t} QD Valtrex 1 GM metFORMIN HCl 500 MG metFORMIN HCl 500 MG No 1{table t_with_ a_meal} QD metFORMIN HCl 500 MG Mupirocin 2 % Mupirocin 2 % No 1{appli cation} QD Mupirocin 2 % metFORMIN HCl 1000 MG metFORMIN HCl 1000 MG No 1{table t_with_ a_meal} BID metFORMIN HCl 1000 MG predniSONE 20 MG predniSONE 20 MG No 1{table t} QD predniSONE 20 MG Ciprofloxac in HCl 500 MG Ciprofloxac in HCl 500 MG No 1{table t} BID Ciprofloxa hardik HCl 500 MG Cholestyram ine 4 GM Cholestyram ine 4 GM No 1{packe t_mixed _with_w ater_or _non-ca rbonate d_drink } QD Cholestyra mine 4 GM hydrALAZINE HCl 100 MG hydrALAZINE HCl 100 MG No 1{table t_with_ food} TID hydrALAZIN E HCl 100 MG Dicyclomine HCl 20 MG Dicyclomine HCl 20 MG No Dicyclomin e HCl 20 MG Immunizations Ordered Immunization Name Filled Immunization Name Date Status Comments Source Flucelvax - multidose vial Flucelvax - multidose vial 2021-07-31 17:04:00 Completed [facility] Flucelvax - multidose vial Flucelvax - multidose vial 2021-07-31 17:04:00 Completed [facility] Flucelvax - multidose vial Flucelvax - multidose vial 2021-07-31 17:04:00 Completed [facility] Flucelvax - multidose vial Flucelvax - multidose vial 2021-07-31 17:04:00 Completed [facility] Flucelvax - multidose vial Flucelvax - multidose vial 2021-07-31 17:04:00 Completed [facility] Flucelvax - multidose vial Flucelvax - multidose vial 2021-07-31 17:04:00 Completed [facility] Flucelvax - multidose vial Flucelvax - multidose vial 2021-07-31 17:04:00 Completed [facility] Flucelvax - multidose vial Flucelvax - multidose vial 2021-07-31 17:04:00 Completed [facility] Flucelvax - multidose vial Flucelvax - multidose vial 2021-07-31 17:04:00 Completed [facility] Flucelvax - multidose vial Flucelvax - multidose vial 2021-07-31 17:04:00 Completed [facility] Flucelvax - multidose vial Flucelvax - multidose vial 2021-07-31 17:04:00 Completed [facility] Flucelvax - multidose vial Flucelvax - multidose vial 2021-07-31 17:04:00 Completed [facility] Flucelvax - multidose vial Flucelvax - multidose vial 2021-07-31 17:04:00 Completed [facility] Flucelvax - multidose vial Flucelvax - multidose vial 2021-07-31 17:04:00 Completed [facility] Flucelvax - multidose vial Flucelvax - multidose vial 2021-07-31 17:04:00 Completed [facility] Flucelvax - multidose vial Flucelvax - multidose vial 2021-07-31 17:04:00 Completed [facility] Flucelvax - multidose vial Flucelvax - multidose vial 2021-07-31 17:04:00 Completed [facility] Flucelvax - multidose vial Flucelvax - multidose vial 2021-07-31 17:04:00 Completed [facility] Flucelvax - multidose vial Flucelvax - multidose vial 2021-07-31 17:04:00 Completed [facility] Flucelvax - multidose vial Flucelvax - multidose vial 2021-07-31 17:04:00 Completed [facility] Flucelvax - multidose vial Flucelvax - multidose vial 2021-07-31 17:04:00 Completed [facility] Flucelvax - multidose vial Flucelvax - multidose vial 2021-07-31 17:04:00 Completed [facility] Flucelvax - single dose syringe Flucelvax - single dose syringe 2019-05-05 17:06:00 Completed [facility] Flucelvax - single dose syringe Flucelvax - single dose syringe 2019-05-05 17:06:00 Completed [facility] Flucelvax - single dose syringe Flucelvax - single dose syringe 2019-05-05 17:06:00 Completed [facility] Flucelvax - single dose syringe Flucelvax - single dose syringe 2019-05-05 17:06:00 Completed [facility] Flucelvax - single dose syringe Flucelvax - single dose syringe 2019-05-05 17:06:00 Completed [facility] Flucelvax - single dose syringe Flucelvax - single dose syringe 2019-05-05 17:06:00 Completed [facility] Flucelvax - single dose syringe Flucelvax - single dose syringe 2019-05-05 17:06:00 Completed [facility] Flucelvax - single dose syringe Flucelvax - single dose syringe 2019-05-05 17:06:00 Completed [facility] Flucelvax - single dose syringe Flucelvax - single dose syringe 2019-05-05 17:06:00 Completed [facility] Flucelvax - single dose syringe Flucelvax - single dose syringe 2019-05-05 17:06:00 Completed [facility] Flucelvax - single dose syringe Flucelvax - single dose syringe 2019-05-05 17:06:00 Completed [facility] Flucelvax - single dose syringe Flucelvax - single dose syringe 2019-05-05 17:06:00 Completed [facility] Flucelvax - single dose syringe Flucelvax - single dose syringe 2019-05-05 17:06:00 Completed [facility] Flucelvax - single dose syringe Flucelvax - single dose syringe 2019-05-05 17:06:00 Completed [facility] Flucelvax - single dose syringe Flucelvax - single dose syringe 2019-05-05 17:06:00 Completed [facility] Flucelvax - single dose syringe Flucelvax - single dose syringe 2019-05-05 17:06:00 Completed [facility] Flucelvax - single dose syringe Flucelvax - single dose syringe 2019-05-05 17:06:00 Completed [facility] Flucelvax - single dose syringe Flucelvax - single dose syringe 2019-05-05 17:06:00 Completed [facility] Flucelvax - single dose syringe Flucelvax - single dose syringe 2019-05-05 17:06:00 Completed [facility] Flucelvax - single dose syringe Flucelvax - single dose syringe 2019-05-05 17:06:00 Completed [facility] Flucelvax - single dose syringe Flucelvax - single dose syringe 2019-05-05 17:06:00 Completed [facility] Flucelvax - single dose syringe Flucelvax - single dose syringe 2019-05-05 17:06:00 Completed [facility] Flucelvax - single dose syringe Flucelvax - single dose syringe 2019-05-05 17:06:00 Completed [facility] Flucelvax (ccIIV4) - MDV - 0.5mL Flucelvax (ccIIV4) - MDV - 0.5mL Unknown Completed [facility] Flucelvax (ccIIV4) - SDS - 0.5mL Flucelvax (ccIIV4) - SDS - 0.5mL Unknown Completed [facility] Flucelvax (ccIIV4) - MDV - 0.5mL Flucelvax (ccIIV4) - MDV - 0.5mL Unknown Completed [facility] Flucelvax (ccIIV4) - SDS - 0.5mL Flucelvax (ccIIV4) - SDS - 0.5mL Unknown Completed [facility] Flucelvax (ccIIV4) - MDV - 0.5mL Flucelvax (ccIIV4) - MDV - 0.5mL Unknown Completed [facility] Flucelvax (ccIIV4) - SDS - 0.5mL Flucelvax (ccIIV4) - SDS - 0.5mL Unknown Completed [facility] Flucelvax (ccIIV4) - MDV - 0.5mL Flucelvax (ccIIV4) - MDV - 0.5mL Unknown Completed [facility] Flucelvax (ccIIV4) - SDS - 0.5mL Flucelvax (ccIIV4) - SDS - 0.5mL Unknown Completed [facility] Flucelvax (ccIIV4) - MDV - 0.5mL Flucelvax (ccIIV4) - MDV - 0.5mL Unknown Completed [facility] Flucelvax (ccIIV4) - SDS - 0.5mL Flucelvax (ccIIV4) - SDS - 0.5mL Unknown Completed [facility] Flucelvax (ccIIV4) - MDV - 0.5mL Flucelvax (ccIIV4) - MDV - 0.5mL Unknown Completed [facility] Flucelvax (ccIIV4) - SDS - 0.5mL Flucelvax (ccIIV4) - SDS - 0.5mL Unknown Completed [facility] Flucelvax (ccIIV4) - MDV - 0.5mL Flucelvax (ccIIV4) - MDV - 0.5mL Unknown Completed [facility] Flucelvax (ccIIV4) - SDS - 0.5mL Flucelvax (ccIIV4) - SDS - 0.5mL Unknown Completed [facility] Flucelvax - multidose vial Flucelvax - multidose vial Unknown Completed [facility] Flucelvax - single dose syringe Flucelvax - single dose syringe Unknown Completed [facility] Flucelvax - multidose vial Flucelvax - multidose vial Unknown Completed [facility] Flucelvax - single dose syringe Flucelvax - single dose syringe Unknown Completed [facility] Flucelvax - multidose vial Flucelvax - multidose vial Unknown Completed [facility] Flucelvax - single dose syringe Flucelvax - single dose syringe Unknown Completed [facility] Flucelvax - multidose vial Flucelvax - multidose vial Unknown Completed [facility] Flucelvax - single dose syringe Flucelvax - single dose syringe Unknown Completed [facility] Flucelvax - multidose vial Flucelvax - multidose vial Unknown Completed [facility] Flucelvax - single dose syringe Flucelvax - single dose syringe Unknown Completed [facility] Flucelvax - multidose vial Flucelvax - multidose vial Unknown Completed [facility] Flucelvax - single dose syringe Flucelvax - single dose syringe Unknown Completed [facility] Flucelvax - multidose vial Flucelvax - multidose vial Unknown Completed [facility] Flucelvax - single dose syringe Flucelvax - single dose syringe Unknown Completed [facility] Flucelvax - multidose vial Flucelvax - multidose vial Unknown Completed [facility] Flucelvax - single dose syringe Flucelvax - single dose syringe Unknown Completed [facility] Flucelvax - multidose vial Flucelvax - multidose vial Unknown Completed [facility] Flucelvax - single dose syringe Flucelvax - single dose syringe Unknown Completed [facility] Vital Signs Vital Name Observation Time Observation Value Comments S ource height 2023-09-30 14:00:00 73 [in_i] Commo n [facility] weight 2023-09-30 14:00:00 220.2 [lb_av] Co mmon [facility] temperature 2023-09-30 14:00:00 97.9 [degF] Com mon [facility] bmi 2023-09-30 14:00:00 29.05 kg/m2 Comm on [facility] oximetry 2023-09-30 14:00:00 99 % Commo n [facility] respiratory rate 2023-09-30 14:00:00 18 /min Common [facility] blood pressure systolic 2023-09-30 14:00:00 146 mm[Hg] [facility] blood pressure diastolic 2023-09-30 14:00:00 68 mm[Hg] Common [facility] height 2023-08-25 13:20:00 73 [in_i] Commo n [facility] weight 2023-08-25 13:20:00 220 [lb_av] Comm on [facility] bmi 2023-08-25 13:20:00 29.02 kg/m2 Comm on [facility] height 2023-05-21 16:00:00 73 [in_i] Commo n [facility] weight 2023-05-21 16:00:00 217.0 [lb_av] Co mmon [facility] temperature 2023-05-21 16:00:00 98.8 [degF] Com [facility] bmi 2023-05-21 16:00:00 28.63 kg/m2 Comm on [facility] oximetry 2023-05-21 16:00:00 95 % Commo n [facility] respiratory rate 2023-05-21 16:00:00 16 /min [facility] blood pressure systolic 2023-05-21 16:00:00 139 mm[Hg] [facility] blood pressure diastolic 2023-05-21 16:00:00 77 mm[Hg] [facility] height 2023-02-11 15:20:00 73 [in_i] Commo n [facility] weight 2023-02-11 15:20:00 214.0 [lb_av] Co mmon [facility] temperature 2023-02-11 15:20:00 97.4 [degF] Com [facility] bmi 2023-02-11 15:20:00 28.23 kg/m2 Comm on [facility] oximetry 2023-02-11 15:20:00 95 % Commo n [facility] respiratory rate 2023-02-11 15:20:00 16 /min Common [facility] blood pressure systolic 2023-02-11 15:20:00 133 mm[Hg] [facility] blood pressure diastolic 2023-02-11 15:20:00 79 mm[Hg] [facility] height 2022-09-15 16:00:00 73 [in_i] Commo n [facility] weight 2022-09-15 16:00:00 227.8 [lb_av] Co [facility] temperature 2022-09-15 16:00:00 97.3 [degF] Com [facility] bmi 2022-09-15 16:00:00 30.05 kg/m2 Comm on [facility] oximetry 2022-09-15 16:00:00 95 % Commo n [facility] respiratory rate 2022-09-15 16:00:00 16 /min Common [facility] blood pressure systolic 2022-09-15 16:00:00 134 mm[Hg] [facility] blood pressure diastolic 2022-09-15 16:00:00 79 mm[Hg] Common [facility] height 2022-09-15 16:00:00 73 [in_i] Commo n [facility] weight 2022-09-15 16:00:00 227.8 [lb_av] Co mmon [facility] temperature 2022-09-15 16:00:00 97.3 [degF] Com [facility] bmi 2022-09-15 16:00:00 30.05 kg/m2 Comm on [facility] oximetry 2022-09-15 16:00:00 95 % Commo n [facility] respiratory rate 2022-09-15 16:00:00 16 /min Common [facility] blood pressure systolic 2022-09-15 16:00:00 134 mm[Hg] [facility] blood pressure diastolic 2022-09-15 16:00:00 79 mm[Hg] [facility] height 2022-09-03 17:00:00 73 [in_i] Commo n [facility] weight 2022-09-03 17:00:00 225.4 [lb_av] Co mmon [facility] temperature 2022-09-03 17:00:00 98.6 [degF] Com mon [facility] bmi 2022-09-03 17:00:00 29.73 kg/m2 Comm on [facility] oximetry 2022-09-03 17:00:00 99 % Commo n [facility] respiratory rate 2022-09-03 17:00:00 18 /min Common [facility] blood pressure systolic 2022-09-03 17:00:00 136 mm[Hg] [facility] blood pressure diastolic 2022-09-03 17:00:00 80 mm[Hg] [facility] height 2022-06-16 16:00:00 73 [in_i] Commo n [facility] weight 2022-06-16 16:00:00 220 [lb_av] Comm on [facility] temperature 2022-06-16 16:00:00 97.5 [degF] Com mon [facility] bmi 2022-06-16 16:00:00 29.02 kg/m2 Comm on [facility] oximetry 2022-06-16 16:00:00 96 % Commo n [facility] respiratory rate 2022-06-16 16:00:00 16 /min Common [facility] blood pressure systolic 2022-06-16 16:00:00 160 mm[Hg] [facility] blood pressure diastolic 2022-06-16 16:00:00 90 mm[Hg] [facility] blood pressure diastolic 2021-07-18 17:00:00 91 mm[Hg] [facility] height 2021-07-18 17:00:00 73 [in_i] Commo n [facility] weight 2021-07-18 17:00:00 225 [lb_av] Comm on [facility] temperature 2021-07-18 17:00:00 97.9 [degF] Com mon [facility] bmi 2021-07-18 17:00:00 29.68 kg/m2 Comm on [facility] oximetry 2021-07-18 17:00:00 99 % Commo n [facility] respiratory rate 2021-07-18 17:00:00 18 /min [facility] blood pressure systolic 2021-07-18 17:00:00 146 mm[Hg] [facility] Procedures Procedure Date / Time Performed Performing Clinicia n Source PVR 2023-09-30 00:00:00 Common [facility] Encounters Start Date/Time End Date/Time Encounter Type Admission Type Attending Clinicians Care Facility Care Department Encounter ID Source 2023-10-12 11:49:00 Outpatient [facility] [id number] [facility] 2023-01-13 08:24:01 Outpatient Esteban [facility] [id number] [facility] 2022-12-16 14:33:02 Outpatient Esteban Albertoa [facility] [id number] [facility] 2022-11-11 08:03:02 Outpatient DollyMary [facility] [id number] [facility] 2022-10-13 15:31:02 Outpatient Esteban Albertoa [facility] [id number] [facility] 2022-09-16 11:26:01 Outpatient SibleyMary hicks [facility] [id number] [facility] 2022-09-11 09:33:00 Outpatient SibleyMary hicks [facility] [id number] [facility] 2022-06-13 09:11:01 Outpatient SibleyMary hicks [facility] [id number] [facility] 2022-03-27 11:28:02 Outpatient SibleyMary hicks [facility] [id number] [facility] 2022-03-17 09:41:01 Outpatient SibleyMary hicks [facility] [id number] [facility] 2022-03-11 11:41:02 Outpatient SibleyMary hicks [facility] [id number] [facility] 2022-03-06 14:55:01 Outpatient SibleyMary hicks [facility] [id number] [facility] 2022-02-24 08:36:04 Outpatient SibleyMary hicks [facility] [id number] [facility] 2022-02-07 11:10:02 Outpatient SibleyMary hicks [facility] [id number] [facility] 2021-12-23 16:24:01 Outpatient SibleyMary hicks [facility] [id number] [facility] 2021-10-21 14:49:01 Outpatient Sibley, Mary [facility] [id number] [facility] 2021-09-04 14:26:58 Outpatient Sibley, Mary [facility] [id number] [facility] 2021-09-04 14:23:10 Outpatient SibleyEsteban hicksa [facility] [id number] [facility] 2023-09-30 00:00:00 2023-09-30 00:00:00 OFFICE VISIT ESTAB PT LEVEL 4 [facility] [id number] [facility] 2023-09-17 00:00:00 2023-09-17 00:00:00 (TEL) [facility] [id number] [facility] 2023-09-11 00:00:00 2023-09-11 00:00:00 (TEL) [facility] [id number] [facility] 2023-08-25 00:00:00 2023-08-25 00:00:00 OFFICE VISIT ESTAB PT LEVEL 3 [facility] [id number] [facility] 2023-06-11 00:00:00 2023-06-11 00:00:00 (TEL) [facility] [id number] [facility] 2023-05-21 00:00:00 2023-05-21 00:00:00 OFFICE VISIT ESTAB PT LEVEL 3 [facility] [id number] [facility] 2023-02-11 00:00:00 2023-02-11 00:00:00 OFFICE VISIT ESTAB PT LEVEL 4 [facility] [id number] [facility] 2023-02-09 00:00:00 2023-02-09 00:00:00 (TEL) [facility] [id number] [facility] 2022-12-25 00:00:00 2022-12-25 00:00:00 (TEL) [facility] [id number] [facility] 2022-12-16 00:00:00 2022-12-16 00:00:00 (TEL) [facility] [id number] [facility] 2022-10-21 00:00:00 2022-10-21 00:00:00 (TEL) [facility] [id number] [facility] 2022-10-13 00:00:00 2022-10-13 00:00:00 (TEL) [facility] [id number] [facility] 2022-09-30 00:00:00 2022-09-30 00:00:00 ([place]) Nurse Visit [facility] [id number] [facility] 2022-09-17 00:00:00 2022-09-17 00:00:00 (TEL) [facility] [id number] [facility] 2022-09-15 00:00:00 2022-09-15 00:00:00 OFFICE VISIT ESTAB PT LEVEL 4 [facility] [id number] [facility] 2022-09-15 00:00:00 2022-09-15 00:00:00 INIT ANNUAL MCR WELLNESS VISIT [facility] [id number] [facility] 2022-09-10 00:00:00 2022-09-10 00:00:00 (TEL) [facility] [id number] [facility] 2022-09-03 00:00:00 2022-09-03 00:00:00 OFFICE VISIT EST PT LEVEL 3 [facility] [id number] [facility] 2022-07-29 00:00:00 2022-07-29 00:00:00 (TEL) [facility] [id number] [facility] 2022-07-22 00:00:00 2022-07-22 00:00:00 ([place]) Nurse Visit [facility] [id number] [facility] 2022-07-15 00:00:00 2022-07-15 00:00:00 ([place]) Nurse Visit [facility] [id number] [facility] 2022-07-09 00:00:00 2022-07-09 00:00:00 (TEL) [facility] [id number] [facility] 2022-07-08 00:00:00 2022-07-08 00:00:00 ([place]) Nurse Visit [facility] [id number] [facility] 2022-07-01 00:00:00 2022-07-01 00:00:00 (TEL) [facility] [id number] [facility] 2022-07-01 00:00:00 2022-07-01 00:00:00 ([place]) Nurse Visit [facility] [id number] [facility] 2022-06-26 00:00:00 2022-06-26 00:00:00 (TEL) [facility] [id number] [facility] 2022-06-25 00:00:00 2022-06-25 00:00:00 (TEL) [facility] [id number] [facility] 2022-06-24 00:00:00 2022-06-24 00:00:00 ([place]) Nurse Visit [facility] [id number] [facility] 2022-06-17 00:00:00 2022-06-17 00:00:00 ([place]) Nurse Visit [facility] [id number] [facility] 2022-06-16 00:00:00 2022-06-16 00:00:00 OFFICE VISIT ESTAB PT LEVEL 4 [facility] [id number] [facility] 2022-06-10 00:00:00 2022-06-10 00:00:00 ([place]) Nurse Visit [facility] [id number] [facility] 2022-06-03 00:00:00 2022-06-03 00:00:00 ([place]) Nurse Visit [facility] [id number] [facility] 2022-05-27 00:00:00 2022-05-27 00:00:00 ([place]) Nurse Visit [facility] [id number] [facility] 2022-05-20 00:00:00 2022-05-20 00:00:00 ([place]) Nurse Visit [facility] [id number] [facility] 2022-05-13 00:00:00 2022-05-13 00:00:00 ([place]) Nurse Visit [facility] [id number] [facility] 2022-05-06 00:00:00 2022-05-06 00:00:00 ([place]) Nurse Visit [facility] [id number] [facility] 2022-04-21 00:00:00 2022-04-21 00:00:00 ambulatory [facility] [id number] [facility] 2022-03-31 00:00:00 2022-03-31 00:00:00 ambulatory [facility] [id number] [facility] 2022-03-20 00:00:00 2022-03-20 00:00:00 ambulatory [facility] [id number] [facility] 2022-03-17 00:00:00 2022-03-17 00:00:00 ambulatory [facility] [id number] [facility] 2022-03-14 00:00:00 2022-03-14 00:00:00 ambulatory [facility] [id number] [facility] 2022-03-13 00:00:00 2022-03-13 00:00:00 ambulatory [facility] [id number] [facility] 2022-03-11 00:00:00 2022-03-11 00:00:00 ambulatory [facility] [id number] [facility] 2022-03-06 00:00:00 2022-03-06 00:00:00 ambulatory [facility] [id number] [facility] 2022-02-26 00:00:00 2022-02-26 00:00:00 ambulatory [facility] [id number] [facility] 2022-02-07 00:00:00 2022-02-07 00:00:00 ambulatory [facility] [id number] [facility] 2021-12-20 00:00:00 2021-12-20 00:00:00 ambulatory [facility] [id number] [facility] 2021-11-12 00:00:00 2021-11-12 00:00:00 ambulatory [facility] [id number] [facility] 2021-10-16 00:00:00 2021-10-16 00:00:00 ambulatory [facility] [id number] [facility] 2021-07-31 00:00:00 2021-07-31 00:00:00 ambulatory [facility] [id number] [facility] 2021-07-24 00:00:00 2021-07-24 00:00:00 (TEL) [facility] [id number] [facility] 2021-07-18 00:00:00 2021-07-18 00:00:00 OFFICE VISIT EST PT LEVEL 3 [facility] [id number] [facility] Results Test Description Test Time Test Comments Results Result Co mments Source
[2023-11-01] MEDS ORDERED: METHYLPREDNISOLONE 125 MG INJ ONE ×3 (06:58→15:28)
[2023-11-01] MEDS ORDERED: FAMOTIDINE 20 MG/2 ML VIAL IV ONE ×2 (06:59→07:56)
[2023-11-01] MEDS ORDERED: DIPHENHYDRAMINE 50 MG/ML VIAL ONE ×5 (06:59→20:19)
[2023-11-01] MEDS ORDERED: TRANEXAMIC ACID 1,000 MG/10 ML VIAL IV ONE (07:00)
[2023-11-01] MEDS ORDERED: EPINEPHRINE 1 MG/ML VIAL ONE ×2 (07:01→07:55)
[2023-11-01] MEDS ORDERED: IPRATROPIUM BROM 0.5MG/2.5ML ONE (07:55)
[2023-11-01] MEDS ORDERED: dexAMETHasone 10 MG/ML VIAL ONE (07:55)
[2023-11-01] MEDS ORDERED: ALBUTEROL 2.5 MG/3 ML NEB SOL ONE (07:55)
[2023-11-01] MEDS ORDERED: prednisoLONE 15 MG/5 ML OSYR ONE (07:56)
[2023-11-01] MEDS ORDERED: NA CHLORIDE 0.9% 1,000 ML ONE ×2 (07:57→11:50)
--- NOTE | 2023-11-01 08:02 | ER ---
Nurse's Notes [facility] Name: Neftali Gill Jr Age: 68 yrs Sex: Male : 1955 Arrival Date: 11/01/2023 Time: 06:42 Bed 4 Private MD: Mary Alberto Diagnosis: Angioneurotic edema;Other allergy-status, recurrent Presentation: 10/31 07:21 Chief complaint: Patient states: at 0300 tongue started to swell, became short of tm6 breath, mouth itchy. Coronavirus screen: Vaccine status: Patient reports receiving the 2nd dose of the covid vaccine. Ebola Screen: Patient negative for fever greater than or equal to 101.5 degrees Fahrenheit, and additional compatible Ebola Virus Disease symptoms Patient denies exposure to infectious person. Patient denies travel to an Ebola-affected area in the 21 days before illness onset. No symptoms or risks identified at this time. Onset: The symptoms/episode began/occurred this morning, at 03:00. Anaphylaxis evaluation, the patient reports or I have noted the following symptoms which indicate a significant risk of anaphylaxis: angioedema shortness of breath urticaria angioedema. Initial Sepsis Screen: Does the patient meet any 2 criteria? No. Patient's initial sepsis screen is negative. Does the patient have a suspected source of infection? No. Patient's initial sepsis screen is negative. Risk Assessment: Do you want to hurt yourself or someone else? Patient reports no desire to harm self or others. Onset of symptoms was November 01, 2023 at 03:00. 07:21 Method Of Arrival: Ambulatory tm6 07:21 Acuity: DUNCAN 2 tm6 Triage Assessment: 07:23 General: Appears uncomfortable, Behavior is calm, cooperative. Pain: Denies pain. EENT: tm6 tongue and mouth swollen. Reports difficulty swallowing since 0300. Neuro: Level of Consciousness is awake, alert, obeys commands, Oriented to person, place, time, situation. Cardiovascular: Capillary refill < 3 seconds Patient's skin is warm and dry. Respiratory: Reports shortness of breath at rest Airway is compromised Respiratory effort is even, labored, Respiratory pattern is regular, symmetrical. GI: No signs and/or symptoms were reported involving the gastrointestinal system. Abdomen is round non-distended. : No signs and/or symptoms were reported regarding the genitourinary system. Derm: No signs and/or symptoms reported regarding the dermatologic system. Musculoskeletal: No signs and/or symptoms reported regarding the musculoskeletal system. Historical: - Allergies: 07:23 ACES; tm6 07:23 Cephalexin; tm6 07:23 Diovan; tm6 07:23 Lisinopril; tm6 07:23 nebivolol HCl; tm6 07:23 NSAIDS; tm6 07:23 valsartan; tm6 - Home Meds: 09:28 nifedipine 90 mg Oral Tablet, Extended Release 24 hr daily [Active]; hydralazine 100 mg iw Oral tablet 2 times per day [Active]; hydroxyzine HCl 25 mg Oral tablet once [Active]; metformin 1,000 mg Oral tablet 2 times per day [Active]; glipizide 10 mg Oral tablet daily [Active]; Nexium 40 mg Oral capsule,delayed release (e.c.) daily [Active]; pravastatin 40 mg oral tablet daily [Active]; pregabalin 200 mg Oral capsule daily [Active]; - PMHx: 07:23 ANGIOEDEMA; GERD; High Cholesterol; Hypertension; NIDDM; tm6 - PSHx: 07:23 Cholecystectomy; TURP; tm6 Screenin:25 [facility] ED Fall Risk Assessment (Adult) History of falling in the last 3 months, tm6 including since admission No falls in past 3 months (0 pts). Abuse screen: Denies threats or abuse. Denies injuries from another. Nutritional screening: No deficits noted. Tuberculosis screening: No symptoms or risk factors identified. Assessment: 07:30 General: Appears in no apparent distress. Behavior is calm, cooperative. Pain: Denies iw pain. Neuro: Level of Consciousness is awake, alert, obeys commands, Oriented to person, place, time, situation, Moves all extremities. Full function. Cardiovascular: Patient's skin is warm and dry. Respiratory: Airway obstructed, Respiratory effort is even, unlabored, Breath sounds are clear bilaterally. GI: Abdomen is non-distended. EENT: angioedema noted, tongue obstructing oral cavity . Derm: Skin is intact, is healthy with good turgor. Musculoskeletal: Range of motion: intact in all extremities. 07:42 Reassessment: pt reports symptoms not improved. iw 09:14 Reassessment: pt without worsening symptoms. iw Vital Signs: 07:21 BP 165 / 78; Pulse 64; Resp 19; Temp 97.1(TE); Pulse Ox 99% on R/A; Weight 99.79 kg; tm6 Height 6 ft. 1 in. ; Pain 0/10; 07:42 BP 171 / 73; Pulse 59; Resp 14; Pulse Ox 99% on R/A; iw 07:21 Body Mass Index 29.03 (99.79 kg, 185.42 cm) tm6 07:21 Pain Scale: Adult tm6 ED Course: 06:50 Patient arrived in ED. gm2 06:51 Mary Alberto is Private Physician. gm2 06:53 Bogdan Castillo MD is Attending Physician. rt 07:00 Inserted saline lock: 20 gauge in right forearm, using aseptic technique. km8 07:23 Triage completed. tm6 07:23 Arm band placed on left wrist. tm6 07:25 Patient has correct armband on for positive identification. Placed in gown. Bed in low tm6 position. Call light in reach. Side rails up X2. Provided Education on: plan of care. Client placed on continuous cardiac and pulse oximetry monitoring. NIBP monitoring applied. electronic device monitor on. Pulse ox on. NIBP on. Noise minimized. 07:47 Attending Physician role handed off by Bogdan Castillo MD mikayla 07:47 Enmanuel Ramirez MD is Attending Physician. mikayla 07:51 Nedra Lakhani, ANSLEY is Primary Nurse. iw 08:01 Riccardo Kingsley MD is Hospitalizing Provider. mikayla 10:35 No provider procedures requiring assistance completed. Patient admitted, IV remains in iw place. Administered Medications: 07:05 Drug: EPINEPHrine 1:1000 Sub-Q 1:1,000 0.3 ml Sub-Q once Route: Sub-Q; Site: right [facility] thigh; 07:30 Follow up: Response: No adverse reaction iw 07:06 Drug: MethylPrednisoLONE IVP 125 mg IVP once Route: IVP; Site: right forearm; km8 07:06 Drug: diphenhydrAMINE IVP 50 mg IVP once Route: IVP; Site: right forearm; 8 08:00 Follow up: Response: No adverse reaction iw 07:06 Drug: Famotidine IVP 20 mg IVP once; dilute with 10 mL 0.9% NaCl; give over 2 minutes [facility] Route: IVP; Site: right forearm; 08:00 Follow up: Response: No adverse reaction iw 07:10 Drug: tranexamic acid 1000 mg IV at calculated rate once; administer at a rate not to km8 exceed 100 mg per min Route: IV; Rate: calculated rate; Site: right forearm; 07:26 Follow up: IV Status: Infusion continued; IV Intake: 10ml km8 08:05 Drug: EPINEPHrine 1:1000 Sub-Q 1:1,000 0.4 ml Sub-Q once Route: Sub-Q; Site: right iw upper arm; 09:00 Follow up: Response: No adverse reaction iw 08:16 Drug: NS 0.9% IV 1000 ml IV at 1 bolus Per protocol; 1000 mL bolus Route: IV; Rate: 1 iw bolus; Site: right forearm; 09:16 Follow up: IV Status: Completed infusion iw 08:16 Drug: Albuterol Inhalation 7.5 mg Inhalation once Route: Inhalation; iw 08:16 Drug: Ipratropium Inhalation Aerosol 0.5 mg Inhalation once Route: Inhalation; iw 08:16 Drug: diphenhydrAMINE IVP 25 mg IVP once Route: IVP; Site: right antecubital; iw 09:00 Follow up: Response: No adverse reaction iw 08:17 Drug: Famotidine IVP 20 mg IVP once; dilute with 10 mL 0.9% NaCl; give over 2 minutes iw Route: IVP; Site: right forearm; 08:35 Follow up: Response: No adverse reaction iw 08:17 Drug: Decadron - Dexamethasone IVP 10 mg IVP once Route: IVP; Site: right forearm; iw 08:45 Follow up: Response: No adverse reaction iw Medication: 07:25 VIS not applicable for this client. tm6 Intake: 07:26 IV: 10ml; Total: 10ml. km8 Outcome: 08:02 Decision to Hospitalize by Provider. mikayla 10:38 Admitted to ICU accompanied by nurse, via stretcher, iw 10:38 Condition: good 10:38 Instructed on the need for admit, 10:39 Patient left the ED. iw Signatures: Enmanuel Ramirez MD MD cha Williams, Irene RN RN iw Bogdan Castillo MD MD rt Deb Pedroza 2 Susan Feng RN RN 8 Ady Manjarrez RN RN tm6 Corrections: (The following items were deleted from the chart) 07:25 07:25 MethylPrednisoLONE IVP 125 mg IVP in right forearm km8 km8
--- NOTE | 2023-11-01 08:03 | EDPHYS ---
Physician Documentation [facility] Name: Neftali Gill Jr Age: 68 yrs Sex: Male : 1955 Arrival Date: 11/01/2023 Time: 06:42 Bed 4 Private MD: Mary Alberto ED Physician Enmanuel Ramirez HPI: 10/31 07:16 This 68 yrs old Black Male presents to ER via Unassigned with complaints of Allergic rt Reaction, Breathing Difficulty. 07:16 Patient with previous history of angioedema presents to the ED with tongue swelling. rt States that he woke up this week. Denies being on any TIERRA inhibitor. Denies any inciting allergen that he is not aware of. Denies any difficulty breathing at this time. Symptoms are moderate in severity, no other aggravating or alleviating factors.. Historical: - Allergies: 07:23 ACES; tm6 07:23 Cephalexin; tm6 07:23 Diovan; tm6 07:23 Lisinopril; tm6 07:23 nebivolol HCl; tm6 07:23 NSAIDS; tm6 07:23 valsartan; tm6 - Home Meds: 09:28 nifedipine 90 mg Oral Tablet, Extended Release 24 hr daily [Active]; hydralazine 100 mg iw Oral tablet 2 times per day [Active]; hydroxyzine HCl 25 mg Oral tablet once [Active]; metformin 1,000 mg Oral tablet 2 times per day [Active]; glipizide 10 mg Oral tablet daily [Active]; Nexium 40 mg Oral capsule,delayed release (e.c.) daily [Active]; pravastatin 40 mg oral tablet daily [Active]; pregabalin 200 mg Oral capsule daily [Active]; - PMHx: 07:23 ANGIOEDEMA; GERD; High Cholesterol; Hypertension; NIDDM; tm6 - PSHx: 07:23 Cholecystectomy; TURP; tm6 ROS: 07:16 Constitutional: Negative for fever, chills, and weight loss, Cardiovascular: Negative rt for chest pain, palpitations, and edema, Respiratory: Negative for shortness of breath, cough, wheezing, and pleuritic chest pain, Abdomen/GI: Negative for abdominal pain, nausea, vomiting, diarrhea, and constipation, MS/Extremity: Negative for injury and deformity, Skin: Negative for injury, rash, and discoloration, Neuro: Negative for headache, weakness, numbness, tingling, and seizure, Psych: Negative for depression, anxiety, suicide ideation, homicidal ideation, and hallucinations, 07:16 ENT: Positive for Tongue swelling, negative for sore throat, Exam: 07:16 Constitutional: This is a well developed, well nourished patient who is awake, alert, rt and in no acute distress. Head/Face: Normocephalic, atraumatic. Chest/axilla: Normal chest wall appearance and motion. Nontender with no deformity. No lesions are appreciated. Cardiovascular: Regular rate and rhythm with a normal S1 and S2. No gallops, murmurs, or rubs. Normal PMI, no JVD. No pulse deficits. Respiratory: Lungs have equal breath sounds bilaterally, clear to auscultation and percussion. No rales, rhonchi or wheezes noted. No increased work of breathing, no retractions or nasal flaring. Skin: Warm, dry with normal turgor. Normal color with no rashes, no lesions, and no evidence of cellulitis. MS/ Extremity: Pulses equal, no cyanosis. Neurovascular intact. Full, normal range of motion. Neuro: Awake and alert, GCS 15, oriented to person, place, time, and situation. Cranial nerves II-XII grossly intact. Motor strength 5/5 in all extremities. Sensory grossly intact. Cerebellar exam normal. Normal gait. Psych: Awake, alert, with orientation to person, place and time. Behavior, mood, and affect are within normal limits. 07:16 ENT: Asymmetric angioedema noted to the tongue. No lip swelling. Patient has difficulty opening mouth. No stridor.. Vital Signs: 07:21 BP 165 / 78; Pulse 64; Resp 19; Temp 97.1(TE); Pulse Ox 99% on R/A; Weight 99.79 kg; tm6 Height 6 ft. 1 in. ; Pain 0/10; 07:42 BP 171 / 73; Pulse 59; Resp 14; Pulse Ox 99% on R/A; iw 07:21 Body Mass Index 29.03 (99.79 kg, 185.42 cm) tm6 07:21 Pain Scale: Adult tm6 MDM: 06:53 Patient medically screened. rt 10/31 08:51 Order name: Basic Metabolic Panel EDMS 10/31 08:51 Order name: Basic Metabolic Panel EDMS 10/31 08:51 Order name: CBC with Automated Diff EDMS 10/31 08:51 Order name: CBC with Automated Diff EDMS 10/31 08:51 Order name: Magnesium EDMS 10/31 08:51 Order name: Magnesium EDMS 10/31 08:51 Order name: Phosphorus EDMS 10/31 08:51 Order name: Phosphorus EDMS Administered Medications: 07:05 Drug: EPINEPHrine 1:1000 Sub-Q 1:1,000 0.3 ml Sub-Q once Route: Sub-Q; Site: right [facility] thigh; 07:30 Follow up: Response: No adverse reaction iw 07:06 Drug: MethylPrednisoLONE IVP 125 mg IVP once Route: IVP; Site: right forearm; [facility] 07:06 Drug: diphenhydrAMINE IVP 50 mg IVP once Route: IVP; Site: right forearm; [facility] 08:00 Follow up: Response: No adverse reaction iw 07:06 Drug: Famotidine IVP 20 mg IVP once; dilute with 10 mL 0.9% NaCl; give over 2 minutes km8 Route: IVP; Site: right forearm; 08:00 Follow up: Response: No adverse reaction iw 07:10 Drug: tranexamic acid 1000 mg IV at calculated rate once; administer at a rate not to km8 exceed 100 mg per min Route: IV; Rate: calculated rate; Site: right forearm; 07:26 Follow up: IV Status: Infusion continued; IV Intake: 10ml km 08:05 Drug: EPINEPHrine 1:1000 Sub-Q 1:1,000 0.4 ml Sub-Q once Route: Sub-Q; Site: right iw upper arm; 09:00 Follow up: Response: No adverse reaction iw 08:16 Drug: NS 0.9% IV 1000 ml IV at 1 bolus Per protocol; 1000 mL bolus Route: IV; Rate: 1 iw bolus; Site: right forearm; 09:16 Follow up: IV Status: Completed infusion iw 08:16 Drug: Albuterol Inhalation 7.5 mg Inhalation once Route: Inhalation; iw 08:16 Drug: Ipratropium Inhalation Aerosol 0.5 mg Inhalation once Route: Inhalation; iw 08:16 Drug: diphenhydrAMINE IVP 25 mg IVP once Route: IVP; Site: right antecubital; iw 09:00 Follow up: Response: No adverse reaction iw 08:17 Drug: Famotidine IVP 20 mg IVP once; dilute with 10 mL 0.9% NaCl; give over 2 minutes iw Route: IVP; Site: right forearm; 08:35 Follow up: Response: No adverse reaction iw 08:17 Drug: Decadron - Dexamethasone IVP 10 mg IVP once Route: IVP; Site: right forearm; iw 08:45 Follow up: Response: No adverse reaction iw Disposition Summary: 11/01/23 08:02 Hospitalization Ordered Notes: Hospitalization Status: Observation mikayla Provider: Riccardo Kingsley cha Condition: Fair mikayla Problem: new mikayla Symptoms: have improved mikayla Bed/Room Type: Standard mikayla Location: Intensive Care Unit(11/01/23 09:13) eb Room Assignment: 5-(11/01/23 09:13) eb Diagnosis - Angioneurotic edema mikayla - Other allergy - status, recurrent mikayla Forms: - Medication Reconciliation Form mikayla - SBAR form mikayla - Leadership Thank You Letter mikayla Signatures: Dispatcher [employer] EDEnmanuel Gan MD MD cha Williams, Irene, RN RN Roxie Cox Ryan, MD MD rt Marx, Katie, RN RN km8 Ady Manjarrez RN RN tm6 Corrections: (The following items were deleted from the chart) : 08:02 [facility] 09:13 08:02 mikayla eb
--- NOTE | 2023-11-01 08:11 | P.HP ---
Certification for Inpatient Patient admitted to: Observation With expected LOS: <2 Midnights <Martha Nguyen - Last Filed: 11/01/23 11:07> Patient History Date of Service: 11/01/23 Reason for admission: angioedema History of Present Illness: Neftali Gill is a 68 year old male with Pmhx HTN, HLD, DM-NIDDM, GERD, neuropathy, Fatty liver, gastroparesis, anaphylaxis, angioedema, osteoarthritis, who presents to the ED with chief complaint of an allergic reaction, difficulty breathing, and swollen tongue. He reports waking up this way this morning in this condition, he had taken two benadryl tablets prior to arriving. He has a significant history of angioedema occuring with multiple medications. He is unable to speak but is breathing well. He is drowsy from the benadryl give in the ED as well as taken at home. While in the ED, he was given nebulizer treatments, Epinephrin x2, benadryl x2, pepcid x2, solu-medrol, prednisone, decadron, and tanexamic acid. Initial vitals BP 165 / 78; Pulse 64; Resp 19; Temp 97.1(TE); Pulse Ox 99% on R/A Neftali will be admitted to the hospitalist service for further monitoring in the ICU and treatment, labs pending. - Past Medical/Surgical History Diabetic: Yes -: HTN -: Hyperlipidemia -: Diabetes mellitus type 2 -: Diabetic neuropathy -: Fatty liver -: Diabetic gastroparesis -: History of anaphylaxis with TIERRA inhibitors,Arb inhibitors,NSAIDS,Beta block -: Osteoarthritis -: GERD -: Tobacco abuse -: Alcohol use -: TRACHEOSTOMY -: CHOLECYSTECTOMY -: appendectomy Psychosocial/ Personal History: He is single, has 3 children, he works c [employer]. - Family History Brother -: Hypertension, Diabetes Mother -: Hypertension - Social History Alcohol use: No CD- Drugs: No Caffeine use: Yes <Martha Nguyen - Last Filed: 11/01/23 11:07> Date of Service: 11/01/23 <Riccardo Kingsley - Last Filed: 11/01/23 13:44> Allergies lisinopril Allergy (Severe, Verified 12/14/20 11:42) Anaphylaxis NSAIDS (Non-Steroidal Anti-Inflamma Allergy (Severe, Verified 12/14/20 11:42) Anaphylaxis valsartan [From Diovan HCT] Allergy (Intermediate, Verified 12/14/20 11:42) SWELLING OF TONGUE carvedilol [From Coreg] Allergy (Verified 12/14/20 11:42) Anaphylaxis nebivolol HCl [From Bystolic] Allergy (Verified 12/14/20 11:42) Shortness of breath cephalexin [From Keflex] Adverse Reaction (Verified 12/14/20 11:42) Anaphylaxis ACES Allergy (Uncoded 12/14/20 11:42) Unknown Home Medications: Esomeprazole Magnesium [Nexium] 40 mg PO DAILY 07/29/16 Metformin ER [Glucophage ER*] 1,000 mg PO BID 07/29/16 glipiZIDE [Glipizide ER] 10 mg PO DAILY 07/29/16 Hydralazine HCl [Apresoline] 100 mg PO TID 10/03/18 Pravastatin Sodium [Pravachol] 40 mg PO BEDTIME 10/12/18 hydrOXYzine pamoate [Hydroxyzine Pamoate] 25 mg PO TIDP PRN 10/12/18 Metformin HCl [Glucophage*] 500 mg PO LUNCH 12/14/20 Nifedipine Xl [Procardia XL*] 90 mg PO DAILY 12/14/20 Pregabalin 200 mg PO TID 12/14/20 predniSONE [Prednisone*] 10 mg PO DAILY #5 tab 05/18/22 Ciprofloxacin HCl [Cipro] 500 mg PO BID #14 tab 02/03/23 Doxycycline Hyclate 100 mg PO BID #14 cap 02/03/23 Mupirocin Oint [Bactroban 2% Ointment*] 1 appl TOP DAILY #1 tube 02/03/23 hydroCHLOROthiazide [Hydrodiuril*] 25 mg PO DAILY #30 tab 02/03/23 Review of Systems is unable to be obtained <Martha Nguyen - Last Filed: 11/01/23 11:07> Physical Examination - Physical Exam General: Other (lethargic) HEENT: Other (edema to face, extensive edema to left side of face) Neck: Supple, 2+ carotid pulse no bruit, JVD not distended Respiratory: Clear to auscultation bilaterally, Normal air movement Cardiovascular: Normal pulses, Regular rate/rhythm, Normal S1 S2, Edema (BLE) Capillary refill: <2 Seconds Gastrointestinal: Normal bowel sounds, No tenderness, Distended (obese) Musculoskeletal: No erythema Integumentary: No rashes Neurological: Other (lethargic ) <Martha Nguyen - Last Filed: 11/01/23 11:07> Assessment and Plan - Plan Assessment and Plan Angioedema, toungue swollen Allergic reaction Steroid induced leukocytosis -He has a history of angioedema occuring with multiple medications -given in the ED: nebulizer treatments, Epinephrin x2, benadryl x2, pepcid x2, solu-medrol, prednisone, decadron, and tranexamic acid. -admit to ICU -Benadryl, steroids Q6h -Gentle IVF -aspiration precautions -continual monitoring facial edema DM-IDDM -Accucheck with SSI -POC glucose 95 History of HTN/HLD -Restart home medications when available -Hydralazine PRN GERD -Protonix daily Neuropathy gastroparesis -Continue home medications when available DVT ppx SCD for now Full code 24 hours Discharge Plan: Home Plan to discharge in: 24 Hours - Advance Directives Does patient have a Living Will: No Does patient have a Durable POA for Healthcare: No Time Spent Managing Pts Care (In Minutes): 50 <Martha Nguyen - Last Filed: 11/01/23 11:07> Date of Service: 11/01/23 Patient seen and examined. Patient well-known to me from multiple prior admissions. Agree with findings as mentioned above. Continue with antihistamine and steroids. Anticipate discharge over the next 24 hours. <Riccardo Kingsley - Last Filed: 11/01/23 13:44>
[2023-11-01] MEDS ORDERED: ALBUTEROL 2.5 MG/3 ML NEB SOL NEB PRN (08:38)
[2023-11-01 10:43] LABS: Absolute Basophils 0.1 K/uL (0-0.5); Absolute Eosinophils 0.1 K/uL (0-0.5); Absolute Lymphocytes (CBC) 2.6 K/uL (0.7-4.9); Absolute Neutrophil 9.8 K/uL (1.8-8.0); Basophils % 0.7 % (0-1.3); Eosinophils % 0.9 % (0-4.4); Hematocrit 42.3 % (39.6-49.0); Hemoglobin 13.8 g/dL (13.6-17.9); Lymphocytes % 18.8 % (15.3-44.8); MCH 28.9 pg (27.0-35.0); MCHC 32.7 g/dL (32.0-36.0); MCV 88.3 fL (80-100); MPV 10.2 fL (7.6-11.3); Monocytes % 7.4 % (3.3-12.3); Neutrophils % 72.2 % (41.7-73.7); Platelets 237 thou/uL (152-406); RBC Red Blood Cell Count 4.79 M/uL (4.33-5.43)
[2023-11-01] MEDS: INSULIN REGULAR (HUMAN) 100 UNIT/ML SQ SCH (11:30)
[2023-11-01] MEDS: DIPHENHYDRAMINE 50 MG/ML VIAL IV SCH (11:51)
[2023-11-01] MEDS: METHYLPREDNISOLONE 125 MG INJ IV SCH (11:51)
[2023-11-01] MEDS: NA CHLORIDE 0.9% 1,000 ML IV SCH (11:52)
[2023-11-01 12:16] LABS: Anion Gap 9.9 mEq/L (5.0-15.0); Magnesium 1.9 mg/dL (1.6-2.4); Phosphorus 2.9 mg/dL (2.5-4.9); Potassium 2.9 mEq/L (3.5-5.1)
[2023-11-01] MEDS ORDERED: HYDRALAZINE HCL 20 MG/ML VIAL ONE ×3 (12:57→22:10)
[2023-11-01] MEDS: HYDRALAZINE HCL 20 MG/ML VIAL IV PRN (13:09)
[2023-11-01] MEDS ORDERED: HYDROMORPHONE HCL 0.5 MG/0.5 ML INJ ONE (20:32)
[2023-11-01] MEDS: HYDROMORPHONE HCL 0.5 MG/0.5 ML INJ IV PRN (20:33)
[2023-11-01 21:29] VITALS: O2SAT 97
[2023-11-02] MEDS ORDERED: METHYLPREDNISOLONE 125 MG INJ ONE ×2 (00:05→05:58)
[2023-11-02] MEDS ORDERED: DIPHENHYDRAMINE 50 MG/ML VIAL ONE ×2 (00:05→04:04)
[2023-11-02] MEDS ORDERED: HYDRALAZINE HCL 20 MG/ML VIAL ONE ×2 (02:34→10:17)
[2023-11-02 05:25] LABS: Absolute Lymphocytes (CBC) 0.6 K/uL (0.7-4.9); Absolute Monocytes 0.5 K/uL (0.1-1.3); Absolute Neutrophil 9.4 K/uL (1.8-8.0); Basophils % 0.2 % (0-1.3); Hematocrit 40.7 % (39.6-49.0); Hemoglobin 13.5 g/dL (13.6-17.9); Lymphocytes % 6.1 % (15.3-44.8); MCH 29.2 pg (27.0-35.0); MCHC 33.1 g/dL (32.0-36.0); MCV 88.2 fL (80-100); MPV 9.7 fL (7.6-11.3); Monocytes % 4.8 % (3.3-12.3); Neutrophils % 88.9 % (41.7-73.7); Platelets 247 thou/uL (152-406); RBC Red Blood Cell Count 4.61 M/uL (4.33-5.43); Red Cell Distribution Width 14.1 % (12.1-15.2)
[2023-11-02 05:32] LABS: Anion Gap 10.1 mEq/L (5.0-15.0); Magnesium 2.3 mg/dL (1.6-2.4); Phosphorus 3.5 mg/dL (2.5-4.9); Potassium 3.1 mEq/L (3.5-5.1)
[2023-11-02] MEDS ORDERED: hydrOXYzine HCL 25 MG TAB PO PRN (06:52)
[2023-11-02] MEDS: KCL 20 MEQ/100 mL IVPB 20 MEQ/100 ML BAG IV SCH (07:00)
[2023-11-02 08:09] LABS: Blood Morphology Comment NOT SEEN (NOT SEEN); Differential Total Cells Count 100; Hypersegmented Neutrophils PRESENT; Lymphocytes 5 % (15-42); Monocytes 3 % (0-10); Platelet Estimate ADEQ; Segmented Neutrophils 92 % (40-80)
[2023-11-02] MEDS ORDERED: PREGABALIN 50 MG CAP ONE (08:10)
[2023-11-02] MEDS ORDERED: predniSONE 10 MG TAB ONE (08:10)
[2023-11-02] MEDS: NIFEDIPINE XL 90 MG TABLET PO SCH (08:11)
[2023-11-02] MEDS: PREGABALIN 150 MG CAP PO SCH (08:12)
[2023-11-02] MEDS: HYDRALAZINE HCL 25 MG TABLET PO SCH (08:12)
[2023-11-02] MEDS: PREGABALIN 50 MG CAP PO SCH (08:12)
[2023-11-02] MEDS: predniSONE 10 MG TAB PO SCH (08:12)
[2023-11-02] MEDS: hydroCHLOROthiazide 25 MG TAB PO SCH (08:13)
[2023-11-02] MEDS: POTASSIUM CL SA 10 MEQ TAB PO ONE (08:13)
[2023-11-02] MEDS: PANTOPRAZOLE 40MG TABLET PO SCH (08:13)
[2023-11-02] MEDS ORDERED: INFLUENZA VACCINE (for 6+ mo) 0.5 ML DOSE IMVAC ONE (08:50)
[2023-11-02] MEDS: INFLUENZA VACCINE (for 6+ mo) 0.5 ML DOSE IMVAC ONE (08:56)
[2023-11-02] MEDS ORDERED: HYDROMORPHONE HCL 0.5 MG/0.5 ML INJ ONE (09:02)
[2023-11-02 09:46] VITALS: BMI 29.0
--- NOTE | 2023-11-02 10:35 | P.DS ---
Admission Date: 11/01/23 Discharge Date: 11/02/23 Disposition: ROUTINE DISCHARGE Discharge Condition: GOOD Reason for Admission: angioedema Brief History of Present Illness: Diagnosis Angioedema, tongue swollen Allergic reaction Steroid induced leukocytosis DM-IDDM History of HTN/HLD GERD Neuropathy gastroparesis HPI 11/01/23 Neftali Gill is a 68 year old male with Pmhx HTN, HLD, DM-NIDDM, GERD, ne uropathy, Fatty liver, gastroparesis, anaphylaxis, angioedema, osteoarthritis, who presents to the ED with chief complaint of an allergic reaction, difficulty breathing, and swollen tongue. He reports waking up this way this morning in this condition, he had taken two benadryl tablets prior to arriving. He has a significant history of angioedema occuring with multiple medications. He is unable to speak but is breathing well. He is drowsy from the benadryl give in the ED as well as taken at home. While in the ED, he was given nebulizer treatments, Epinephrin x2, benadryl x2, pepcid x2, solu-medrol, prednisone, decadron, and tanexamic acid. Initial vitals BP 165 / 78; Pulse 64; Resp 19; Temp 97.1(TE); Pulse Ox 99% on R/A Neftali will be admitted to the hospitalist service for further monitoring in the ICU and treatment, labs pending. Hospital Course: Neftali Gill is a pleasant 68-year-old male with a past medical history significant for HTN, HLD, DM-NIDDM, GERD, neuropathy, Fatty liver, gastroparesis, anaphylaxis, angioedema, osteoarthritis who was admitted to the [facility] on 11/01/23 for Angioedema. Neftali Gill presented to the ED on 11/01/2023 with chief complaint of difficulty breathing, facial swelling, and tongue swelling. He has a significant history of angioedema to multiple medications. He is unaware of [facility] medication may be causing this episode. He has responded well to steroids and Benadryl scheduled. He is awake, able to speak, breathing well on room air and tolerating p.o. diet. He is ambulating independently, no shortness of breath, no acute distress, hemodynamically stable and ready for discharge. On 11/02/23, Neftali was seen on morning rounds and deemed medically stable for discharge. Neftali was discharged with instructions to schedule follow-up appointments with PCP. Neftali was provided prescriptions for Benadryl, prednisone, and epinephrine pen. The patient was given the opportunity to ask questions and reported no further questions. Furthermore, all questions were answered to the best of my ability. A copy of this discharge summary will be sent to the above providers to fac ilitate continuity of care. Today, I personally spent 50 minutes with Neftali, of which greater than 50% of the time was spent in patient education, counseling, and coordination of care as described above. Physical Exam General: AAOx3, NAD HEENT: Trachea midline, no swelling to face or eyes, Neck: Supple, 2+ carotid pulse no bruit, JVD not distended Respiratory: Clear to auscultation bilaterally, symmetrical chest wall movement, on RA Cardiovascular: Normal pulses, RRR, Normal S1 S2, Edema (BLE) Capillary refill: <2 Seconds Gastrointestinal: Normal bowel sounds, No tenderness, Distended (obese) Musculoskeletal: No erythema Integumentary: No rashes Neurological: Normal speech Vital Signs/Physical Exam: Temp Pulse Resp BP Pulse Ox 98.1 F 82 15 186/84 H 98 11/02/23 09:00 11/02/23 10:00 11/02/23 10:00 11/02/23 10:00 11/02/23 10:00 Laboratory Data at Discharge: WBC 10.60 thou/uL (4.3-10.9) 11/02/23 04:24 Hgb 13.5 g/dL (13.6-17.9) L 11/02/23 04:24 Hct 40.7 % (39.6-49.0) 11/02/23 04:24 Plt Count 247 thou/uL (152-406) 11/02/23 04:24 Sodium 139 mEq/L (136-145) 11/02/23 04:24 Potassium 3.1 mEq/L (3.5-5.1) L 11/02/23 04:24 BUN 12 mg/dL (7-18) 11/02/23 04:24 Creatinine 0.70 mg/dL (0.70-1.30) 11/02/23 04:24 Glucose 152 mg/dL (74-106) H 11/02/23 04:24 Phosphorus 3.5 mg/dL (2.5-4.9) 11/02/23 04:24 Magnesium 2.3 mg/dL (1.6-2.4) 11/02/23 04:24 Home Medications: Esomeprazole Magnesium [Nexium] 40 mg PO DAILY 07/29/16 Metformin ER [Glucophage ER*] 1,000 mg PO BID 07/29/16 glipiZIDE [Glipizide ER] 10 mg PO DAILY 07/29/16 Hydralazine HCl [Apresoline] 100 mg PO TID 10/03/18 Pravastatin Sodium [Pravachol] 40 mg PO BEDTIME 10/12/18 hydrOXYzine pamoate [Hydroxyzine Pamoate] 25 mg PO TIDP PRN 10/12/18 Metformin HCl [Glucophage*] 500 mg PO LUNCH 12/14/20 Nifedipine Xl [Procardia XL*] 90 mg PO DAILY 12/14/20 Pregabalin 200 mg PO TID 12/14/20 predniSONE [Prednisone*] 10 mg PO DAILY #5 tab 05/18/22 hydroCHLOROthiazide [Hydrodiuril*] 25 mg PO DAILY #30 tab 02/03/23 Diphenhydramine [Benadryl Tab/Cap] 25 mg PO Q6HP PRN #30 tab 11/02/23 predniSONE [Prednisone*] 40 mg PO BID #25 tab 11/02/23 New Medications: Diphenhydramine [Benadryl Tab/Cap] 25 mg PO Q6HP PRN #30 tab PRN Reason: Itching predniSONE [Prednisone*] 40 mg PO BID #25 tab Physician Discharge Instructions: Neftali Gill presented to the ED on 11/01/2023 with chief complaint of difficulty breathing, facial swelling, and tongue swelling. He has a significant history of angioedema to multiple medications. He is unaware of which medication may be causing this episode. He has responded well to steroids and Benadryl scheduled. He is awake, able to speak, breathing well on room air and tolerating p.o. diet. He is ambulating independently, no shortness of breath, no acute distress, hemodynamically stable and ready for discharge. OK TO DC IV AND DC HOME FOLLOW-UP WITH PRIMARY CARE PROVIDER IN 1-2 WEEKS FOLLOW-UP WITH Reflow Operator or ENT IN 1-2 WEEKS RETURN TO THE ER IF symptoms worsens CALL DR. NUNEZ AT [phone] IF ANY QUESTIONS REGARDING HOSPITAL STAY. PLEASE CALL THE FLOOR AT [phone] IF ANY MEDICATION OR NURSING QUESTIONS. PROBLEM: Angioedema GOAL: Clear understanding of disease process INSTRUCTIONS: FOLLOW-UP WITH PRIMARY CARE PROVIDER IN 1-2 WEEKS FOLLOW-UP WITH Reflow Operator or ENT IN 1-2 WEEKS RETURN TO THE ER IF symptoms worsens CALL DR. NUNEZ AT [phone] IF ANY QUESTIONS REGARDING HOSPITAL STAY. PLEASE CALL THE FLOOR AT [phone] IF ANY MEDICATION OR NURSING QUESTIONS. Diet: Heart Healthy Activity: Fall precautions DME DME: Date Ordered: Name of Company: [employer] Services Needed: Name of Company: Date or Referral: IMMUNIZATION Influenza Vaccine Indicated: Yes Influenza Vaccine Given: Yes Date Given: Pneumonia Vaccine Indicated: No Pneumonia Vaccine Given: Date Given: Diet: ADA Activity: Fall precautions Followup: Mary Alberto NP [Primary Care Provider] -
[2023-11-02] MEDS ORDERED: INSULIN REGULAR (HUMAN) 100 UNIT/ML ONE (11:12)
[2023-11-02 13:06] VITALS: BP 166/71; TEMP 97.6
[2023-11-02] MEDS ORDERED: ATORVASTATIN 10 MG TAB PO SCH (21:00)
== END 2023-11-02 12:34 | disposition home or self-care (01) ==
LOC: ER 06:42 → ERHOLD 08:38 → 3RD-ICU 09:55
PROVIDERS: ADMIT Hospitalist; ATTEND Hospitalist
DX: T78.3XXA Angioneurotic edema, initial encounter (principal); T78.49XA Other allergy, initial encounter; I10 Essential (primary) hypertension; E78.5 Hyperlipidemia, unspecified; E11.9 Type 2 diabetes mellitus without complications; K21.9 Gastro-esophageal reflux disease without esophagitis; K76.0 Fatty (change of) liver, not elsewhere classified; E11.40 Type 2 diabetes mellitus with diabetic neuropathy, unspecified; E11.43 Type 2 diabetes mellitus with diabetic autonomic (poly)neuropathy; K31.84 Gastroparesis; M19.90 Unspecified osteoarthritis, unspecified site; D72.829 Elevated white blood cell count, unspecified; Z88.6 Allergy status to analgesic agent; Z88.8 Allergy status to other drugs, medicaments and biological substances
CPT/HCPCS: 85025 ×2; 80048 ×2; 36415; 83735 ×2; 84100 ×2; 82947 ×5; 90471; 96372; 99285; J1815; Q2035; J7512; J7510; J0360 ×5; J1200 ×7; J7613; J7644; J1100; J0171 ×2; J1170 ×2; J2930 ×5; J7030 ×2; G0378 ×3

== ENCOUNTER 2024-02-13 03:42 | Observation (INO) | payer BC, OTHER ==
[2024-02-13] MEDS ORDERED: FAMOTIDINE 20 MG/2 ML VIAL IV ONE ×2 (03:45→03:48)
[2024-02-13] MEDS ORDERED: METHYLPREDNISOLONE 125 MG INJ ONE ×2 (03:45→03:54)
[2024-02-13] MEDS ORDERED: EPINEPHRINE 1 MG/ML VIAL ONE (03:45)
[2024-02-13] MEDS ORDERED: DIPHENHYDRAMINE 50 MG/ML VIAL ONE ×2 (03:45→03:55)
[2024-02-13] MEDS ORDERED: NA CHLORIDE 0.9% 1,000 ML ONE ×2 (03:46→09:35)
--- OUTSIDE RECORDS SUMMARY | 2024-02-13 03:47 | XMS REPORT | Continuity of Care Document ---
Author Name Unknown Address [address] [facility] [address] [place] [address] [facility]connect Address [address] [facility]. [address] [place] [address] Care Team Providers Care [place] Yard Supervisor Name Role Phone Mary Alberto Attending Clinician Unavailable Payers Payer Name Policy Type Policy Number Effective Date Expirati on Date Source [facility] 111 [id number] 2022 00:00:00 [facility] Problems Condition Name Condition Details Condition Category Status Onset Date Resolution Date Last Treatment Date Treating Clinician Comments Source [id number] Detrusor instabilit y Problem [facility] [id number] Urge incontinen ce Problem [facility] [id number] BMI 28.0-28.9, adult Problem [facility] [id number] Diarrhea, functional Problem [facility] [id number] Primary insomnia Problem [facility] [id number] Lumbar back pain with radiculopa thy affecting lower extremity Problem [facility] [id number] Disorder of urinary system, unspecifie d Problem Common [facility] Frequency Frequency Problem Comm on [facility] Comprehens ladi eye examinatio n (procedure ) Routine eye exam Problem Common [facility] [id number] Right upper quadrant abdominal pain Problem [facility] Seasonal allergic rhinitis Seasonal allergic reaction Problem [facility] Peripheral neuropathy Peripheral neuropathy Problem [facility] Disturbanc e of skin sensation Disturbanc e of skin sensation Problem [facility] Angioedema [facility] Hypertensi on Hypertensi on Problem [facility] [id number] Wound of skin Problem [facility] [id number] S/P TURP (status post transureth ral resection of prostate) Problem [facility] [id number] Dysuria Problem [facility] [id number] Type 2 diabetes mellitus with other diabetic kidney complicati on Problem [facility] [id number] Other postherpet ic nervous system involvemen t Problem [facility] [id number] Hospital discharge follow-up Problem [facility] 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 Problem [facility] [id number] Diarrhea of presumed infectious origin Problem [facility] [id number] Acquired anal stenosis Problem [facility] [id number] Lower urinary tract symptoms (LUTS) Problem [facility] [id number] BPH loc w urin obs/LUTS Problem [facility] Benign prostatic hyperplasi a BPH (benign prostatic hyperplasi a) Problem [facility] [id number] Prostatiti s, acute Problem [facility] [id number] ED (erectile dysfunctio n) of organic origin Problem [facility] [id number] skilled nursing current use of insulin Problem [facility] Overactive bladder Overactive bladder Problem [facility] Impotence of organic origin ED (erectile dysfunctio n) Problem [facility] [id number] 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 Problem [facility] [id number] Type 2 diabetes mellitus with foot ulcer Problem [facility] [id number] Gastroesop hageal reflux disease without esophagiti s Problem [facility] 34726090 Urethritis Problem Comm on [facility] [id number] Incomplete emptying of bladder Problem [facility] Allergies, Adverse Reactions, Alerts Allergy Name Allergy Type Status Severity Reaction(s) Onset Date Inactive Date Treating Clinician Comments Source valsarta n valsarta n Active angioedema [facility] 6335 Drug allergy Active Unknown [facility] cephalex in cephalex in Active shock [facility] carvedil ol carvedil ol Active Unknown [facility] lisinopr il lisinopr il Active angioedema [facility] Social History Social Habit Start Date Stop Date Quantity Comments Source History of Tobacco Use Current Smoker [facility] Sex Assigned At [facility] Smoking Status Start Date Stop Date Source Current Smoker 2023-12-08 00:00:00 [facility] Never Smoker [facility] Medications Ordered Medication Name Filled Medication Name Start Date Stop Date Current Medication? Ordering Clinician Indication Dosage Frequency Signature (SIG) Comments Components Source Nystatin 388908 UNIT/ML Nystatin 615775 UNIT/ML - 00:00: 00 No 4{ml} QID Nystatin 623431 UNIT/ML Pregabalin 225 MG Pregabalin 225 MG 4- 00:00: 00 No 1{capsu le} BID Pregabalin 225 MG Doxycycline Hyclate 100 MG Doxycycline Hyclate 100 MG 2-21 00:00: 00 No 1{capsu le} BID Doxycyclin e Hyclate 100 MG clomiPHENE Citrate 50 MG clomiPHENE Citrate 50 MG 3-10 00:00: 00 No QD clomiPHENE Citrate 50 MG Cholestyram ine 4 GM Cholestyram [...] 100 MG Sildenafil Citrate 100 MG No 1{table t_as_ne eded} QD Sildenafil Citrate 100 MG metFORMIN HCl 500 MG metFORMIN HCl 500 MG No 1{table t_with_ a_meal} QD metFORMIN HCl 500 MG metFORMIN HCl 1000 MG metFORMIN HCl 1000 MG No 1{table t_with_ a_meal} BID metFORMIN HCl 1000 MG predniSONE 20 MG predniSONE 20 MG No 1{table t} QD predniSONE 20 MG Combigan 0.2-0.5 % Combigan 0.2-0.5 % No Combigan 0.2-0.5 % hydrALAZINE HCl 100 MG hydrALAZINE HCl 100 MG No 1{table t_with_ food} TID hydrALAZIN E HCl 100 MG glipiZIDE 10 MG glipiZIDE 10 MG No QD glipiZIDE 10 MG Dicyclomine HCl 20 MG Dicyclomine HCl 20 MG No 1{table t} TID Dicyclomin e HCl 20 MG NIFEdipine ER [...] No TID hydrOXYzin e HCl 25 MG Immunizations Ordered Immunization Name Filled Immunization Name Date Status Comments Source Flucelvax - multidose vial Flucelvax - multidose vial 2021-07-31 17:04:00 Completed [facility] Flucelvax - multidose vial Flucelvax - multidose vial 2021-07-31 17:04:00 [facility] Flucelvax - multidose vial Flucelvax - multidose vial 2021-07-31 17:04:00 Completed [facility] Flucelvax - multidose vial Flucelvax - multidose vial 2021-07-31 17:04:00 Completed [facility] Flucelvax - multidose vial Flucelvax - multidose vial 2021-07-31 17:04:00 Completed [facility] Flucelvax - multidose vial Flucelvax - multidose vial 2021-07-31 17:04:00 Completed [facility] Flucelvax - multidose vial Flucelvax - multidose vial 2021-07-31 17:04:00 Completed [facility] Flucelvax - multidose vial Flucelvax - multidose vial 2021-07-31 17:04:00 Completed [facility] Flucelvax - multidose vial Flucelvax - multidose vial 2021-07-31 17:04:00 Completed [facility] Flucelvax - multidose vial Flucelvax - multidose vial 2021-07-31 17:04:00 Completed [facility] Flucelvax - multidose vial Flucelvax - multidose vial 2021-07-31 17:04:00 Completed [facility] Flucelvax - multidose vial Flucelvax - multidose vial 2021-07-31 17:04:00 Completed [facility] Flucelvax - multidose vial Flucelvax - multidose vial 2021-07-31 17:04:00 Completed [facility] Flucelvax - multidose vial Flucelvax - multidose vial 2021-07-31 17:04:00 Completed [facility] Flucelvax - multidose vial Flucelvax - multidose vial 2021-07-31 17:04:00 Completed [facility] Flucelvax - multidose vial Flucelvax - multidose vial 2021-07-31 17:04:00 Completed [facility] Flucelvax - multidose vial Flucelvax - multidose vial 2021-07-31 17:04:00 Completed [facility] Flucelvax - multidose vial Flucelvax - multidose vial 2021-07-31 17:04:00 Completed [facility] Flucelvax - multidose vial Flucelvax - multidose vial 2021-07-31 17:04:00 Completed [facility] Flucelvax - multidose vial Flucelvax - multidose vial 2021-07-31 17:04:00 Completed [facility] Flucelvax - multidose vial Flucelvax - multidose vial 2021-07-31 17:04:00 Completed [facility] Flucelvax - multidose vial Flucelvax - multidose vial 2021-07-31 17:04:00 Completed [facility] Flucelvax - single dose syringe Flucelvax - single dose syringe 2019-05-05 17:06:00 Completed [facility] Flucelvax - single dose syringe Flucelvax - single dose syringe 2019-05-05 17:06:00 Completed [facility] Flucelvax - single dose syringe Flucelvax - single dose syringe 2019-05-05 17:06:00 Completed [facility] Flucelvax - single dose syringe Flucelvax - single dose syringe 2019-05-05 17:06:00 Completed [facility] Flucelvax - single dose syringe Flucelvax - single dose syringe 2019-05-05 17:06:00 Completed [facility] Flucelvax - single dose syringe Flucelvax - single dose syringe 2019-05-05 17:06:00 Completed [facility] Flucelvax - single dose syringe Flucelvax - single dose syringe 2019-05-05 17:06:00 Completed [facility] Flucelvax - single dose syringe Flucelvax - single dose syringe 2019-05-05 17:06:00 Completed [facility] Flucelvax - single dose syringe Flucelvax - single dose syringe 2019-05-05 17:06:00 Completed [facility] Flucelvax - single dose syringe Flucelvax - single dose syringe 2019-05-05 17:06:00 Completed [facility] Flucelvax - single dose syringe Flucelvax - single dose syringe 2019-05-05 17:06:00 Completed [facility] Flucelvax - single dose syringe Flucelvax - single dose syringe 2019-05-05 17:06:00 Completed [facility] Flucelvax - single dose syringe Flucelvax - single dose syringe 2019-05-05 17:06:00 Completed [facility] Flucelvax - single dose syringe Flucelvax - single dose syringe 2019-05-05 17:06:00 Completed [facility] Flucelvax - single dose syringe Flucelvax - single dose syringe 2019-05-05 17:06:00 Completed [facility] Flucelvax - single dose syringe Flucelvax - single dose syringe 2019-05-05 17:06:00 Completed [facility] Flucelvax - single dose syringe Flucelvax - single dose syringe 2019-05-05 17:06:00 Completed [facility] Flucelvax - single dose syringe Flucelvax - single dose syringe 2019-05-05 17:06:00 Completed [facility] Flucelvax - single dose syringe Flucelvax - single dose syringe 2019-05-05 17:06:00 Completed [facility] Flucelvax - single dose syringe Flucelvax - single dose syringe 2019-05-05 17:06:00 Completed [facility] Flucelvax - single dose syringe Flucelvax - single dose syringe 2019-05-05 17:06:00 Completed [facility] Flucelvax - single dose syringe Flucelvax - single dose syringe 2019-05-05 17:06:00 Completed [facility] Flucelvax - single dose syringe Flucelvax - single dose syringe 2019-05-05 17:06:00 Completed [facility] Flucelvax (ccIIV4) - MDV - 0.5mL Flucelvax (ccIIV4) - MDV - 0.5mL Unknown Completed [facility] Flucelvax (ccIIV4) - SDS - 0.5mL Flucelvax (ccIIV4) - SDS - 0.5mL Unknown Completed [facility] Flucelvax (ccIIV4) - MDV - 0.5mL Flucelvax (ccIIV4) - MDV - 0.5mL Unknown Completed [facility] Flucelvax (ccIIV4) - SDS - 0.5mL Flucelvax (ccIIV4) - SDS - 0.5mL Unknown Completed [facility] Flucelvax (ccIIV4) - MDV - 0.5mL Flucelvax (ccIIV4) - MDV - 0.5mL Unknown Completed [facility] Flucelvax (ccIIV4) - SDS - 0.5mL Flucelvax (ccIIV4) - SDS - 0.5mL Unknown Completed [facility] Flucelvax (ccIIV4) - MDV - 0.5mL Flucelvax (ccIIV4) - MDV - 0.5mL Unknown Completed [facility] Flucelvax (ccIIV4) - SDS - 0.5mL Flucelvax (ccIIV4) - SDS - 0.5mL Unknown Completed [facility] Flucelvax (ccIIV4) - MDV - 0.5mL Flucelvax (ccIIV4) - MDV - 0.5mL Unknown Completed [facility] Flucelvax (ccIIV4) - SDS - 0.5mL Flucelvax (ccIIV4) - SDS - 0.5mL Unknown Completed [facility] Flucelvax (ccIIV4) - MDV - 0.5mL Flucelvax (ccIIV4) - MDV - 0.5mL Unknown Completed [facility] Flucelvax (ccIIV4) - SDS - 0.5mL Flucelvax (ccIIV4) - SDS - 0.5mL Unknown Completed [facility] Flucelvax (ccIIV4) - MDV - 0.5mL Flucelvax (ccIIV4) - MDV - 0.5mL Unknown Completed [facility] Flucelvax (ccIIV4) - SDS - 0.5mL Flucelvax (ccIIV4) - SDS - 0.5mL Unknown Completed [facility] Flucelvax (ccIIV4) - MDV - 0.5mL Flucelvax (ccIIV4) - MDV - 0.5mL Unknown Completed [facility] Flucelvax (ccIIV4) - SDS - 0.5mL Flucelvax (ccIIV4) - SDS - 0.5mL Unknown Completed [facility] Flucelvax (ccIIV4) - MDV - 0.5mL Flucelvax (ccIIV4) - MDV - 0.5mL Unknown Completed [facility] Flucelvax (ccIIV4) - SDS - 0.5mL Flucelvax (ccIIV4) - SDS - 0.5mL Unknown Completed [facility] Flucelvax (ccIIV4) - MDV - 0.5mL Flucelvax (ccIIV4) - MDV - 0.5mL Unknown Completed [facility] Flucelvax (ccIIV4) - SDS - 0.5mL Flucelvax (ccIIV4) - SDS - 0.5mL Unknown Completed [facility] Flucelvax (ccIIV4) - MDV - 0.5mL Flucelvax (ccIIV4) - MDV - 0.5mL Unknown Completed [facility] Flucelvax (ccIIV4) - SDS - 0.5mL Flucelvax (ccIIV4) - SDS - 0.5mL Unknown Completed [facility] Flucelvax - multidose vial Flucelvax - multidose vial Unknown Completed [facility] Flucelvax - single dose syringe Flucelvax - single dose syringe Unknown Completed [facility] Flucelvax - multidose vial Flucelvax - multidose vial Unknown Completed [facility] Flucelvax - single dose syringe Flucelvax - single dose syringe Unknown Completed [facility] Flucelvax - multidose vial Flucelvax - multidose vial Unknown Completed [facility] Flucelvax - single dose syringe Flucelvax - single dose syringe Unknown Completed [facility] Flucelvax - multidose vial Flucelvax - multidose vial Unknown Completed [facility] Flucelvax - single dose syringe Flucelvax - single dose syringe Unknown Completed [facility] Flucelvax - multidose vial Flucelvax - multidose vial Unknown Completed [facility] Flucelvax - single dose syringe Flucelvax - single dose syringe Unknown Completed [facility] Flucelvax - multidose vial Flucelvax - multidose vial Unknown Completed [facility] Flucelvax - single dose syringe Flucelvax - single dose syringe Unknown Completed [facility] Flucelvax - multidose vial Flucelvax - multidose vial Unknown Completed [facility] Flucelvax - single dose syringe Flucelvax - single dose syringe Unknown Completed [facility] Flucelvax - multidose vial Flucelvax - multidose vial Unknown Completed [facility] Flucelvax - single dose syringe Flucelvax - single dose syringe Unknown Completed [facility] Flucelvax - multidose vial Flucelvax - multidose vial Unknown Completed [facility] Flucelvax - single dose syringe Flucelvax - single dose syringe Unknown Completed [facility] Vital Signs Vital Name Observation Time Observation Value Comments S maryannce height 2023-12-01 16:00:00 73 [in_i] Commo n [facility] weight 2023-12-01 16:00:00 220 [lb_av] Comm on [facility] bmi 2023-12-01 16:00:00 29.02 kg/m2 Comm on [facility] height 2023-09-30 14:00:00 73 [in_i] Commo n [facility] weight 2023-09-30 14:00:00 220.2 [lb_av] Co [facility] temperature 2023-09-30 14:00:00 97.9 [degF] Com mon [facility] bmi 2023-09-30 14:00:00 29.05 kg/m2 Comm on [facility] oximetry 2023-09-30 14:00:00 99 % Commo n [facility] respiratory rate 2023-09-30 14:00:00 18 /min [facility] blood pressure systolic 2023-09-30 14:00:00 146 mm[Hg] [facility] blood pressure diastolic 2023-09-30 14:00:00 68 mm[Hg] [facility] height 2023-08-25 13:20:00 73 [in_i] Commo n [facility] weight 2023-08-25 13:20:00 220 [lb_av] Comm on [facility] bmi 2023-08-25 13:20:00 29.02 kg/m2 Comm on [facility] height 2023-05-21 16:00:00 73 [in_i] Commo n [facility] weight 2023-05-21 16:00:00 217.0 [lb_av] Co [facility] temperature 2023-05-21 16:00:00 98.8 [degF] Com [facility] bmi 2023-05-21 16:00:00 28.63 kg/m2 Comm on [facility] oximetry 2023-05-21 16:00:00 95 % Commo n [facility] respiratory rate 2023-05-21 16:00:00 16 /min Common [facility] blood pressure systolic 2023-05-21 16:00:00 139 mm[facility]Hg[facility] blood pressure diastolic 2023-05-21 16:00:00 77 mm[Hg] [facility] height 2023-02-11 15:20:00 73 [in_i] Commo n [facility] weight 2023-02-11 15:20:00 214.0 [lb_av] Co mmon [facility] temperature 2023-02-11 15:20:00 97.4 [degF] Com [facility] bmi 2023-02-11 15:20:00 28.23 kg/m2 Comm on [facility] oximetry 2023-02-11 15:20:00 95 % Commo n [facility] respiratory rate 2023-02-11 15:20:00 16 /min [facility] blood pressure systolic 2023-02-11 15:20:00 133 mm[Hg] [facility] blood pressure diastolic 2023-02-11 15:20:00 79 mm[Hg] [facility] height 2022-09-15 16:00:00 73 [in_i] Commo n [facility] weight 2022-09-15 16:00:00 227.8 [lb_av] Co [facility] temperature 2022-09-15 16:00:00 97.3 [degF] Com [facility] bmi 2022-09-15 16:00:00 30.05 kg/m2 Comm on [facility] oximetry 2022-09-15 16:00:00 95 % Commo n [facility] respiratory rate 2022-09-15 16:00:00 16 /min Common [facility] blood pressure systolic 2022-09-15 16:00:00 134 mm[Hg] Common [facility] blood pressure diastolic 2022-09-15 16:00:00 79 mm[Hg] [facility] height 2022-09-15 16:00:00 73 [in_i] Commo n [facility] weight 2022-09-15 16:00:00 227.8 [lb_av] Co [facility] temperature 2022-09-15 16:00:00 97.3 [degF] Com mon [facility] bmi 2022-09-15 16:00:00 30.05 kg/m2 Comm on [facility] oximetry 2022-09-15 16:00:00 95 % Commo n [facility] respiratory rate 2022-09-15 16:00:00 16 /min Common [facility] blood pressure systolic 2022-09-15 16:00:00 134 mm[Hg] Common [facility] blood pressure diastolic 2022-09-15 16:00:00 79 mm[Hg] Common [facility] height 2022-09-03 17:00:00 73 [in_i] Commo n [facility] weight 2022-09-03 17:00:00 225.4 [lb_av] Co [facility]mon [facility] temperature 2022-09-03 17:00:00 98.6 [degF] Com mon [facility] bmi 2022-09-03 17:00:00 29.73 kg/m2 Comm on [facility] oximetry 2022-09-03 17:00:00 99 % Commo n [facility] respiratory rate 2022-09-03 17:00:00 18 /min [facility] blood pressure systolic 2022-09-03 17:00:00 136 mm[Hg] Common Sp[facility] blood pressure diastolic 2022-09-03 17:00:00 80 mm[Hg] Common [facility] height 2022-06-16 16:00:00 73 [in_i] Commo n [facility] weight 2022-06-16 16:00:00 220 [lb_av] Comm on [facility] temperature 2022-06-16 16:00:00 97.5 [degF] Com mon [facility] bmi 2022-06-16 16:00:00 29.02 kg/m2 Comm on [facility] oximetry 2022-06-16 16:00:00 96 % Commo n [facility] respiratory rate 2022-06-16 16:00:00 16 /min [facility] blood pressure systolic 2022-06-16 16:00:00 160 mm[Hg] [facility] blood pressure diastolic 2022-06-16 16:00:00 90 mm[Hg] Common [facility] blood pressure diastolic 2021-07-18 17:00:00 91 mm[Hg] Common [facility] height 2021-07-18 17:00:00 73 [in_i] Commo n [facility] weight 2021-07-18 17:00:00 225 [lb_av] Comm on [facility] temperature 2021-07-18 17:00:00 97.9 [degF] Com mon [facility] bmi 2021-07-18 17:00:00 29.68 kg/m2 Comm on [facility] oximetry 2021-07-18 17:00:00 99 % Commo n [facility] respiratory rate 2021-07-18 17:00:00 18 /min [facility] blood pressure systolic 2021-07-18 17:00:00 146 mm[Hg] Common Spiri t [facility] Procedures Procedure Date / Time Performed Performing Clinicia n Source PVR 2023-09-30 00:00:00 Common S pirit [facility] Encounters Start Date/Time End Date/Time Encounter Type Admission Type Attending [facility] Emergency [facility] Facility Care Department Encounter ID Source 2023-10-12 11:49:00 Outpatient Mary Alberto STLMLC STLMLC [id number] [facility] 2023-01-13 08:24:01 Outpatient Tesu[place]Mary hicks STLMLC STLMLC [id number] [facility] 2022-12-16 14:33:02 Outpatient Dolly Mary STLMLC STLMLC [id number] [facility] 2022-11-11 08:03:02 Outpatient Mary Alberto STLMLC STLMLC [id number] [facility] 2022-10-13 15:31:02 Outpatient [place] hicks STLMLC STLMLC [id number] [facility] 2022-09-16 11:26:01 Outpatient Dolly Mary STLMLC STLMLC [id number] [facility] 2022-09-11 09:33:00 Outpatient Dolly Mary STLMLC STLMLC [id number] [facility] 2022-06-13 09:11:01 Outpatient [place], Mary STLMLC STLMLC [id number] [facility] 2022-03-27 11:28:02 Outpatient [place], Mary STLMLC STLMLC [id number] [facility] 2022-03-17 09:41:01 Outpatient [place], Mary STLMLC STLMLC [id number] [facility] 2022-03-11 11:41:02 Outpatient [place], Mary STLMLC STLMLC [id number] [facility] 2022-03-06 14:55:01 Outpatient Mary Alberto STLMLC STLMLC [id number] [facility] 2022-02-24 08:36:04 Outpatient Mary Alberto STLMLC STLMLC [id number] [facility] 2022-02-07 11:10:02 Outpatient Mary Alberto STLMLC STLMLC [id number] [facility] 2021-12-23 16:24:01 Outpatient Mary Alberto STLMLC STLMLC [id number] [facility] 2021-10-21 14:49:01 Outpatient Mary Alberto STLMLC STLMLC [id number] [facility] 2021-09-04 14:26:58 Outpatient Mary Alberto STLMLC STLMLC [id number] [facility] 2021-09-04 14:23:10 Outpatient Mary Alberto STLMLC STLMLC [id number] [facility] 2024-01-01 00:00:00 2024-01-01 00:00:00 (TEL) STLMLC STLMLC [id number] [facility] 2023-12-01 00:00:00 2023-12-01 00:00:00 OFFICE VISIT ESTAB PT LEVEL 4 STLMLC STLMLC [id number] [facility] 2023-10-30 00:00:00 2023-10-30 00:00:00 (TEL) STLMLC STLMLC [id number] [facility] 2023-10-26 00:00:00 2023-10-26 00:00:00 (TEL) STLMLC STLMLC [id number] [facility] 2023-09-30 00:00:00 2023-09-30 00:00:00 OFFICE VISIT ESTAB PT LEVEL 4 STLMLC STLMLC [id number] [facility] 2023-09-17 00:00:00 2023-09-17 00:00:00 (TEL) STLMLC STLMLC [id number] [facility] 2023-09-11 00:00:00 2023-09-11 00:00:00 (TEL) STLMLC STLMLC [id number] [facility] 2023-08-25 00:00:00 2023-08-25 00:00:00 OFFICE VISIT ESTAB PT LEVEL 3 STLMLC STLMLC [id number] [facility] 2023-06-11 00:00:00 2023-06-11 00:00:00 (TEL) STLMLC STLMLC [id number] [facility] 2023-05-21 00:00:00 2023-05-21 00:00:00 OFFICE VISIT ESTAB PT LEVEL 3 STLMLC STLMLC [id number] [facility] 2023-02-11 00:00:00 2023-02-11 00:00:00 OFFICE VISIT ESTAB PT LEVEL 4 STLMLC STLMLC [id number] [facility] 2023-02-09 00:00:00 2023-02-09 00:00:00 (TEL) STLMLC STLMLC [id number] [facility] 2022-12-25 00:00:00 2022-12-25 00:00:00 (TEL) STLMLC STLMLC [id number] [facility] 2022-12-16 00:00:00 2022-12-16 00:00:00 (TEL) STLMLC STLMLC [id number] [facility] 2022-10-21 00:00:00 2022-10-21 00:00:00 (TEL) STLMLC STLMLC [id number] [facility] 2022-10-13 00:00:00 2022-10-13 00:00:00 (TEL) STLMLC STLMLC [id number] [facility] 2022-09-30 00:00:00 2022-09-30 00:00:00 ([place]) Nurse Visit STLMLC STLMLC [id number] [facility] 2022-09-17 00:00:00 2022-09-17 00:00:00 (TEL) STLMLC STLMLC [id number] [facility] 2022-09-15 00:00:00 2022-09-15 00:00:00 OFFICE VISIT ESTAB PT LEVEL 4 STLMLC STLMLC [id number] [facility] 2022-09-15 00:00:00 2022-09-15 00:00:00 INIT ANNUAL MCR WELLNESS VISIT STLMLC STLMLC [id number] [facility] 2022-09-10 00:00:00 2022-09-10 00:00:00 (TEL) STLMLC STLMLC [id number] [facility] 2022-09-03 00:00:00 2022-09-03 00:00:00 OFFICE VISIT EST PT LEVEL 3 STLMLC STLMLC [id number] [facility] 2022-07-29 00:00:00 2022-07-29 00:00:00 (TEL) STLMLC STLMLC [id number] [facility] 2022-07-22 00:00:00 2022-07-22 00:00:00 (NV) Nurse Visit STLMLC STLMLC [id number] [facility] 2022-07-15 00:00:00 2022-07-15 00:00:00 (NV) Nurse Visit STLMLC STLMLC [id number] [facility] 2022-07-09 00:00:00 2022-07-09 00:00:00 (TEL) STLMLC STLMLC [id number] [facility] 2022-07-08 00:00:00 2022-07-08 00:00:00 (NV) Nurse Visit STLMLC STLMLC [id number] [facility] 2022-07-01 00:00:00 2022-07-01 00:00:00 (TEL) STLMLC STLMLC [id number] [facility] 2022-07-01 00:00:00 2022-07-01 00:00:00 (NV) Nurse Visit STLMLC STLMLC [id number] [facility] 2022-06-26 00:00:00 2022-06-26 00:00:00 (TEL) STLMLC STLMLC [id number] [facility] 2022-06-25 00:00:00 2022-06-25 00:00:00 (TEL) STLMLC STLMLC [id number] [facility] 2022-06-24 00:00:00 2022-06-24 00:00:00 (NV) Nurse Visit STLMLC STLMLC [id number] [facility] 2022-06-17 00:00:00 2022-06-17 00:00:00 (NV) Nurse Visit STLMLC STLMLC [id number] [facility] 2022-06-16 00:00:00 2022-06-16 00:00:00 OFFICE VISIT ESTAB PT LEVEL 4 STLMLC STLMLC [id number] [facility] 2022-06-10 00:00:00 2022-06-10 00:00:00 (NV) Nurse Visit STLMLC STLMLC [id number] [facility] 2022-06-03 00:00:00 2022-06-03 00:00:00 (NV) Nurse Visit STLMLC STLMLC [id number] [facility] 2022-05-27 00:00:00 2022-05-27 00:00:00 (NV) Nurse Visit STLMLC STLMLC [id number] [facility] 2022-05-20 00:00:00 2022-05-20 00:00:00 (NV) Nurse Visit STLMLC STLMLC [id number] [facility] 2022-05-13 00:00:00 2022-05-13 00:00:00 (NV) Nurse Visit STLMLC STLMLC [id number] [facility] 2022-05-06 00:00:00 2022-05-06 00:00:00 (NV) Nurse Visit STLMLC STLMLC [id number] [facility] 2022-04-21 00:00:00 2022-04-21 00:00:00 ambulatory STLMLC STLMLC [id number] [facility] 2022-03-31 00:00:00 2022-03-31 00:00:00 ambulatory STLMLC STLMLC [id number] [facility] 2022-03-20 00:00:00 2022-03-20 00:00:00 ambulatory STLMLC STLMLC [id number] [facility] 2022-03-17 00:00:00 2022-03-17 00:00:00 ambulatory STLMLC STLMLC [id number] [facility] 2022-03-14 00:00:00 2022-03-14 00:00:00 ambulatory STLMLC STLMLC [id number] [facility] 2022-03-13 00:00:00 2022-03-13 00:00:00 ambulatory STLMLC STLMLC [id number] [facility] 2022-03-11 00:00:00 2022-03-11 00:00:00 ambulatory STLMLC STLMLC [id number] [facility] 2022-03-06 00:00:00 2022-03-06 00:00:00 ambulatory STLMLC STLMLC [id number] [facility] 2022-02-26 00:00:00 2022-02-26 00:00:00 ambulatory STLMLC STLMLC [id number] [facility] 2022-02-07 00:00:00 2022-02-07 00:00:00 ambulatory STLMLC STLMLC [id number] [facility] 2021-12-20 00:00:00 2021-12-20 00:00:00 ambulatory STLMLC STLMLC [id number] [facility] 2021-11-12 00:00:00 2021-11-12 00:00:00 ambulatory STLMLC STLMLC [id number] [facility] 2021-10-16 00:00:00 2021-10-16 00:00:00 ambulatory STLMLC STLMLC [id number] [facility] 2021-07-31 00:00:00 2021-07-31 00:00:00 ambulatory STLMLC STLMLC [id number] [facility] 2021-07-24 00:00:00 2021-07-24 00:00:00 (TEL) STLMLC STLMLC [id number] [facility] 2021-07-18 00:00:00 2021-07-18 00:00:00 OFFICE VISIT EST PT LEVEL 3 STLMLC STLMLC [id number] [facility] Results Test Description Test Time Test Comments Results Result Co mments Source
[2024-02-13] MEDS ORDERED: dexAMETHasone 10 MG/ML VIAL ONE (03:55)
[2024-02-13] MEDS ORDERED: TRANEXAMIC ACID 1,000 MG/10 ML VIAL IV ONE (03:55)
[2024-02-13] MEDS ORDERED: IPRATROPIUM BROM 0.5MG/2.5ML ONE (03:57)
[2024-02-13] MEDS ORDERED: ALBUTEROL 2.5 MG/3 ML NEB SOL ONE (03:57)
[2024-02-13] MEDS ORDERED: NA CHLORIDE 0.9% 100 ML ONE ×2 (03:57→07:36)
[2024-02-13 05:15] LABS: Absolute Basophils 0.1 K/uL (0-0.5); Absolute Eosinophils 0.3 K/uL (0-0.5); Absolute Lymphocytes (CBC) 6.1 K/uL (0.7-4.9); Absolute Monocytes 1.6 K/uL (0.1-1.3); Absolute Neutrophil 8.2 K/uL (1.8-8.0); Basophils % 0.5 % (0-1.3); Hematocrit 38.8 % (39.6-49.0); Hemoglobin 12.9 g/dL (13.6-17.9); Lymphocytes % 37.3 % (15.3-44.8); MCHC 33.1 g/dL (32.0-36.0); MCV 87.5 fL (80-100); MPV 8.8 fL (7.6-11.3); Monocytes % 9.9 % (3.3-12.3); Neutrophils % 50.3 % (41.7-73.7); Nucleated RBC Absolute Count 0.1 (0-0); Nucleated Red Blood Cells % 0.3 % (0-0); Platelets 276 thou/uL (152-406); RBC Red Blood Cell Count 4.44 M/uL (4.33-5.43); Red Cell Distribution Width 14.1 % (12.1-15.2)
[2024-02-13 05:42] LABS: PT Prothrombin Time 11.8 SECONDS (9.4-12.5); Protime INR 1.07
[2024-02-13 05:52] LABS: ALT/SGPT 31 U/L (16-61); AST/SGOT 17 U/L (15-37); Albumin 3.7 g/dL (3.4-5.0); Albumin/Globulin Ratio 1.4 (1.1-1.8); Alkaline Phosphatase 46 U/L (45-117); Anion Gap 8.3 mEq/L (5.0-15.0); BUN Blood Urea Nitrogen 12 mg/dL (7-18); Bicarbonate 30 mEq/L (21-32); Bilirubin Total 0.3 mg/dL (0.2-1.0); Globulin 2.7 g/dL (2.3-3.5); Glomerular Filtration Rate 96 ml/min (=/>90); Glucose Level 199 mg/dL (74-106); Magnesium 1.5 mg/dL (1.6-2.4); NT PRO-BNP 36 pg/mL (<125); Protein, Total 6.4 g/dL (6.4-8.2); Sodium Level 141 mEq/L (136-145); Troponin High Sensitivity 14.1 pg/mL (<58.9)
[2024-02-13 05:54] LABS: Bilirubin Direct < 0.2 mg/dL (0-0.2); Bilirubin Indirect, Calculated 0.1 mg/dL (0.2-0.8)
[2024-02-13 05:56] LABS: Potassium 2.3 mEq/L (3.5-5.1)
--- NOTE | 2024-02-13 06:12 | EDPHYS ---
Physician Documentation [facility] Name: Neftali Gill Jr Age: 68 yrs Sex: Male : 1955 Arrival Date: 02/13/2024 Time: 03:42 Bed 2 Private MD: PER Physician Enmanuel Ramirez HPI: 02/12 04:03 This 68 yrs old Black Male presents to ER via Ambulatory with complaints of Allergic mikayla Reaction. 04:03 The patient presents with difficulty swallowing, diffuse swelling, swelling of the mikayla lips, swelling of the tongue. Onset: The symptoms/episode began/occurred just prior to arrival. Associated signs and symptoms: Pertinent positives: dysphagia. Possible causes: The patient has no known obvious cause for the symptoms. At home the patient or guardian has treated the symptoms with nothing. Severity of symptoms: At their worst the symptoms were in the emergency department the symptoms. The patient has experienced similar episodes in the past, multiple times. Historical: - Allergies: 04:59 ACES; pc2 04:59 Cephalexin; pc2 04:59 Diovan; pc2 04:59 Lisinopril; pc2 04:59 nebivolol HCl; pc2 04:59 NSAIDS; pc2 04:59 valsartan; pc2 - Home Meds: 04:59 pregabalin 200 mg Oral capsule daily [Active]; amlodipine 10 mg tab 1 tab once daily pc2 [Active]; gabapentin 600 mg Oral tab 1 tab 3 times per day [Active]; glipizide 10 mg Oral tablet daily [Active]; hydralazine 100 mg Oral tablet 2 times per day [Active]; hydralazine 25 mg Oral tab 2 times per day [Active]; hydroxyzine HCl 25 mg Oral tablet once [Active]; metformin 1 Oral tablet 2 times per day [Active]; Nexium 40 mg Oral capsule daily [Active]; nifedipine 90 mg Oral Tablet daily [Active]; pravastatin 40 mg Oral tablet daily [Active]; prednisone 10 mg Oral tab once daily [Active]; - PMHx: 04:59 ANGIOEDEMA; GERD; High Cholesterol; Hypertension; NIDDM; pc2 - PSHx: 04:59 Cholecystectomy; TURP; pc2 - Immunization history:: Adult Immunizations unknown. - Infectious Disease History:: Denies. - Family history:: not pertinent. - Social history:: Smoking status: Patient denies any tobacco usage or history of. ROS: 04:05 Constitutional: Negative for fever, chills, and weight loss, Eyes: Negative for injury, mikayla pain, redness, and discharge, Neck: Negative for injury, pain, and swelling, Cardiovascular: Negative for chest pain, palpitations, and edema, Respiratory: Negative for shortness of breath, cough, wheezing, and pleuritic chest pain, Abdomen/GI: Negative for abdominal pain, nausea, vomiting, diarrhea, and constipation, Back: Negative for injury and pain, : Negative for injury, bleeding, discharge, and swelling, MS/Extremity: Negative for injury and deformity, Skin: Negative for injury, rash, and discoloration, Neuro: Negative for headache, weakness, numbness, tingling, and seizure, Psych: Negative for depression, anxiety, suicide ideation, homicidal ideation, and hallucinations, Allergy/Immunology: Negative for hives, rash, and allergies, Endocrine: Negative for neck swelling, polydipsia, polyuria, polyphagia, and marked weight changes, Hematologic/Lymphatic: Negative for swollen nodes, abnormal bleeding, and unusual bruising, 04:05 ENT: Positive for difficulty handling secretions, difficulty swallowing, hoarseness, rhinorrhea, 04:05 Allergy/Immunology: Positive for allergies, hives, rash, Exam: 04:05 Constitutional: This is a well developed, well nourished patient who is awake, alert, mikayla and in no acute distress. Head/Face: Normocephalic, atraumatic. Eyes: Pupils equal round and reactive to light, extra-ocular motions intact. Lids and lashes normal. Conjunctiva and sclera are non-icteric and not injected. Cornea within normal limits. Periorbital areas with no swelling, redness, or edema. Neck: Trachea midline, no thyromegaly or masses palpated, and no cervical lymphadenopathy. Supple, full range of motion without nuchal rigidity, or vertebral point tenderness. No Meningismus. Chest/axilla: Normal chest wall appearance and motion. Nontender with no deformity. No lesions are appreciated. Cardiovascular: Regular rate and rhythm with a normal S1 and S2. No gallops, murmurs, or rubs. Normal PMI, no JVD. No pulse deficits. Respiratory: Lungs have equal breath sounds bilaterally, clear to auscultation and percussion. No rales, rhonchi or wheezes noted. No increased work of breathing, no retractions or nasal flaring. Abdomen/GI: Soft, non-tender, with normal bowel sounds. No distension or tympany. No guarding or rebound. No evidence of tenderness throughout. Back: No spinal tenderness. No costovertebral tenderness. Full range of motion. Male : Normal genitalia with no discharge or lesions. Skin: Warm, dry with normal turgor. Normal color with no rashes, no lesions, and no evidence of cellulitis. MS/ Extremity: Pulses equal, no cyanosis. Neurovascular intact. Full, normal range of motion. Neuro: Awake and alert, GCS 15, oriented to person, place, time, and situation. Cranial nerves II-XII grossly intact. Motor strength 5/5 in all extremities. Sensory grossly intact. Cerebellar exam normal. Normal gait. Psych: Awake, alert, with orientation to person, place and time. Behavior, mood, and affect are within normal limits. 04:05 ENT: Posterior pharynx: Airway: difficult to asses secondary to swelling of toung, Voice: is muffled, 05:52 ECG was reviewed by the Attending Physician. [facility] Vital Signs: 03:46 BP 169 / 75; Pulse 85; Resp 18; Pulse Ox 100% on R/A; pc2 04:23 BP 170 / 52; Pulse 76; Resp 18; Pulse Ox 100% ; pc2 05:03 BP 155 / 59; Pulse 77; Resp 18; Pulse Ox 98% on R/A; pc2 07:50 BP 145 / 82; Pulse 76; Resp 18 S; Pulse Ox 97% on R/A; kc6 08:31 BP 169 / 67; Pulse 81; Resp 18 S; Pulse Ox 97% on R/A; kc6 MDM: 03:49 Patient medically screened. [facility] 04:07 Differential diagnosis: anaphylaxis, angioedema, bronchospasm, foreign body or airway mikayla obstruction Hereditary Angioedema Mastocystosis non IgE mediated drug reaction Status Asthmaticus Vasovagal Reactions gingivostomatitis. Data reviewed: vital signs, nurses notes, lab test result(s), EKG, radiologic studies, plain films. Consideration of Admission/Observation Patient was admitted/placed on observation. Escalation of care including admission/observation considered. Management of patient was discussed with the following: Hospitalist: dr lewis. I considered the following discharge prescriptions or medication management in the emergency department Medications were administered in the Emergency Department. See MAR. Independent interpretation of the following test(s) in the Emergency Department EKG: See my EKG interpretation above. Test considered but Not performed: CT: no ct soft tissue. Historians other than the Patient: pt good historain , know to me. Care significantly affected by the following chronic conditions: Hypertension, angioedema. Counseling: I had a detailed discussion with the patient and/or guardian regarding the historical points, exam findings, and any diagnostic results supporting the discharge/admit diagnosis, the presence of at least one elevated blood pressure reading (>120/80) during this emergency department visit, lab results, radiology results, the need for further work-up and treatment in the hospital. 02/12 03:51 Order name: Basic Metabolic Panel; Complete Time: 06:07 [facility] 02/12 03:51 Order name: CBC with Diff; Complete Time: 05:46 [facility] 02/12 03:51 Order name: LFT's; Complete Time: 06:07 [facility] 02/12 03:51 Order name: Magnesium; Complete Time: 06:07 [facility] 02/12 03:51 Order name: NT PRO-BNP; Complete Time: 06:07 [facility] 02/12 03:51 Order name: PT-INR; Complete Time: 05:46 [facility] 02/12 03:51 Order name: Troponin HS; Complete Time: 06:07 [facility] 02/12 05:56 Order name: Phosphorus [facility] 02/12 05:58 Order name: Blood Culture Adult (2) [facility] 02/12 05:58 Order name: Lactate w/ 2H reflex if indic. [facility] 02/12 09:14 Order name: CBC with Automated Diff EDSD 02/12 09:14 Order name: CBC with Automated Diff EDSD 02/12 09:14 Order name: Comprehensive Metabolic Panel EDSD 02/12 09:15 Order name: Comprehensive Metabolic Panel EDSD 02/12 09:15 Order name: Lipid Profile EDSD 02/12 09:15 Order name: Lipid Profile EDSD 02/12 09:23 Order name: Magnesium EDMS 02/12 09:23 Order name: Potassium EDSD 02/12 10:05 Order name: Ghost Lactate-NO COLLECT Timer EDSD 02/12 03:51 Order name: XRAY Chest (1 view) [facility] 02/12 06:15 Order name: CT Chest Wo Con 02/12 03:51 Order name: Cardiac monitoring; Complete Time: 04:58 [facility] 02/12 03:51 Order name: EKG - Nurse/Tech; Complete Time: 04:21 mikayla 02/12 03:51 Order name: IV Saline Lock; Complete Time: 04:58 [facility] 02/12 03:51 Order name: Labs collected and sent; Complete Time: 04:21 mikayla 02/12 03:51 Order name: O2 Per Protocol; Complete Time: 04:21 mikayla 02/12 03:51 Order name: O2 Sat Monitoring; Complete Time: 04:21 [facility] 02/12 03:52 Order name: IV Saline Lock - Large Bore; Complete Time: 04:18 mikayla EC:52 Rate is 73 beats/min. Rhythm is regular. QRS Withams is Normal. AL interval is normal. QRS mikayla interval is normal. QT interval is prolonged at 608 msec. No Q waves. T waves are Normal. No ST changes noted. Clinical impression: NSR w/ Non-specific ST/T Changes. Interpreted by me. Reviewed by me. Administered Medications: 05:56 Discontinued: ns 0.9% 1000 ml IV at 125 ml/hr continuous mikayla 03:54 Drug: EPINEPHrine 1:1000 Sub-Q 1:1,000 0.4 ml Sub-Q once Route: Sub-Q; Site: right pc2 upper arm; 05:05 Follow up: Response: No adverse reaction pc2 03:55 Drug: NS 0.9% IV 500 ml IV at bolus once Route: IV; Rate: bolus; Site: right pc2 antecubital; 07:00 Follow up: Response: No adverse reaction; IV Status: Completed infusion; IV Intake: kc6 500ml 03:55 Drug: MethylPrednisoLONE IVP 250 mg IVP once Route: IVP; Site: right antecubital; pc2 05:04 Follow up: Response: No adverse reaction pc2 03:56 Drug: Decadron - Dexamethasone IVP 10 mg IVP once Route: IVP; Site: right antecubital; pc2 05:04 Follow up: Response: No adverse reaction pc2 03:58 Drug: Famotidine IVP 40 mg IVP once; dilute with 10 mL 0.9% NaCl; give over 2 minutes pc2 Route: IVP; Site: right antecubital; 05:05 Follow up: Response: No adverse reaction pc2 03:59 Drug: diphenhydrAMINE IVP 50 mg IVP once Route: IVP; Site: right antecubital; pc2 05:05 Follow up: Response: No adverse reaction pc2 04:04 Drug: Albuterol Inhalation 7.5 mg Inhalation once Route: Inhalation; pc2 05:04 Follow up: Response: No adverse reaction pc2 04:04 Drug: Ipratropium Inhalation Aerosol 0.5 mg Inhalation once Route: Inhalation; pc2 05:04 Follow up: Response: No adverse reaction pc2 04:05 Drug: diphenhydrAMINE IVP 25 mg IVP once Route: IVP; Site: right antecubital; pc2 05:05 Follow up: Response: No adverse reaction pc2 04:10 Drug: tranexamic acid 1000 mg IV at per protocol once; administer at a rate not to pc2 exceed 100 mg per min Route: IV; Rate: per protocol; Site: right antecubital; 04:20 Follow up: Response: No adverse reaction; IV Status: Completed infusion; IV Intake: pc2 100ml 05:05 Drug: NS 0.9% IV 1000 ml IV at 125 ml/hr continuous Route: IV; Rate: 125 ml/hr; Site: pc2 right antecubital; 07:49 Follow up: Response: No adverse reaction; IV Status: Order to discontinue infusion; IV kc6 Intake: 500ml 07:49 Drug: NS 0.9% with KCl IV 20 mEq/L 1000 ml IV at 125 ml/hr continuous Route: IV; Rate: kc6 125 ml/hr; Site: right antecubital; 08:29 Follow up: Response: No adverse reaction; IV Status: Infusion continued upon admission kc6 07:49 Drug: Magnesium Sulfate IVPB 1 grams IVPB once over 1 hrs Route: IVPB; Infused Over: 1 kc6 hrs; Site: left antecubital; 08:59 Follow up: Response: No adverse reaction; IV Status: Completed infusion; IV Intake: kc6 100ml 09:00 Drug: Piperacillin-Tazobactam IVPB 3.375 grams IVPB once over 60 mins; (mix in NS 100 kc6 mL) Route: IVPB; Infused Over: 60 mins; Site: left antecubital; 09:42 Follow up: Response: No adverse reaction; IV Status: Completed infusion; IV Intake: kc6 100ml 09:42 Drug: Potassium Chloride IV 20 mEq IV at per protocol once; administer over 1-2 hours kc6 Route: IV; Rate: per protocol; Site: left antecubital; Disposition Summary: 02/13/24 06:11 Hospitalization Ordered Notes: Hospitalization Status: Observation mikayla Provider: Diaz Espinoza cha Condition: Fair mikayla Problem: new mikayla Symptoms: have improved mikayla Bed/Room Type: Standard mikayla Location: Intensive Care Unit(02/13/24 09:20) eb Room Assignment: 5-(02/13/24 09:20) eb Diagnosis - Hypokalemia mikayla - Hypomagnesemia mikayla - Angioneurotic edema - SEVERE mikayla - Abnormal findings on diagnostic imaging of other specified body structures - LEFT mikayla LOWER LOBE PNEUMONIA Forms: - Medication Reconciliation Form mikayla - SBAR form mikayla - Leadership Thank You Letter mikayla Signatures: Dispatcher [employer] EDMS Enmanuel Ramirez MD MD cha Botello, Elizabeth eb Campbell, Kaitlyn, RN RN kc6 Edel Moscoso RN RN pc2 Corrections: (The following items were deleted from the chart) 03:52 03:52 Chest Single View+[email or web address] ordered. EDSD EDMS 09:20 06:11 Telemetry/MedSurg (observation) mikayla eb 09:20 06:11 mikayla eb
--- NOTE | 2024-02-13 06:12 | ER ---
Nurse's Notes [facility] Name: Neftali Gill Jr Age: 68 yrs Sex: Male : 1955 Arrival Date: 02/13/2024 Time: 03:42 Bed 2 Private MD: Diagnosis: Hypokalemia;Hypomagnesemia;Angioneurotic edema-SEVERE;Abnormal findings on diagnostic imaging of other specified body structures-LEFT LOWER LOBE PNEUMONIA Presentation: 02/12 03:46 Chief complaint: Patient states: Allergic reaction to unknown substance with facial pc2 swelling. Coronavirus screen: At this time, unable to obtain information related to travel outside the [place] At this time, the client does not indicate any symptoms associated with coronavirus-19. Ebola Screen: No symptoms or risks identified at this time. Onset: The symptoms/episode began/occurred acutely. Anaphylaxis evaluation, angioedema. Initial Sepsis Screen: Does the patient meet any 2 criteria? No. Patient's initial sepsis screen is negative. Does the patient have a suspected source of infection? No. Patient's initial sepsis screen is negative. Risk Assessment: Do you want to hurt yourself or someone else? Patient reports no desire to harm self or others. Onset of symptoms was February 13, 2024. Care prior to arrival: None. 03:46 Method Of Arrival: Ambulatory pc2 03:46 Acuity: DUNCAN 2 pc2 Triage Assessment: 03:50 General: Appears distressed, uncomfortable, well groomed, Behavior is calm, pc2 cooperative. EENT: swelling noted to mouth/face/jaw, unable to open. Neuro: Level of Consciousness is awake, alert, Oriented to. Cardiovascular: Patient's skin is warm and dry. Respiratory: Airway is patent Respiratory effort is even, unlabored, Respiratory pattern is regular, symmetrical. GI: No deficits noted. : No deficits noted. Derm: Skin is intact. 03:50 Pain: Denies pain. pc2 Historical: - Allergies: 04:59 ACES; pc2 04:59 Cephalexin; pc2 04:59 Diovan; pc2 04:59 Lisinopril; pc2 04:59 nebivolol HCl; pc2 04:59 NSAIDS; pc2 04:59 valsartan; pc2 - Home Meds: 04:59 pregabalin 200 mg Oral capsule daily [Active]; amlodipine 10 mg tab 1 tab once daily pc2 [Active]; gabapentin 600 mg Oral tab 1 tab 3 times per day [Active]; glipizide 10 mg Oral tablet daily [Active]; hydralazine 100 mg Oral tablet 2 times per day [Active]; hydralazine 25 mg Oral tab 2 times per day [Active]; hydroxyzine HCl 25 mg Oral tablet once [Active]; metformin 1 Oral tablet 2 times per day [Active]; Nexium 40 mg Oral capsule daily [Active]; nifedipine 90 mg Oral Tablet daily [Active]; pravastatin 40 mg Oral tablet daily [Active]; prednisone 10 mg Oral tab once daily [Active]; - PMHx: 04:59 ANGIOEDEMA; GERD; High Cholesterol; Hypertension; NIDDM; pc2 - PSHx: 04:59 Cholecystectomy; TURP; pc2 - Immunization history:: Adult Immunizations unknown. - Infectious Disease History:: Denies. - Family history:: not pertinent. - Social history:: Smoking status: Patient denies any tobacco usage or history of. Screenin:23 [facility] ED Fall Risk Assessment (Adult) History of falling in the last 3 months, pc2 including since admission No falls in past 3 months (0 pts) Confusion or Disorientation No (0 pts) Intoxicated or Sedated No (0 pts) Impaired Gait No (0 pts) Mobility Assist Device Used No (0 pt) Altered Elimination No (0 pt) Score/Fall Risk Level 0 - 2 = Low Risk Oriented to surroundings, Hourly rounding (assess needs \T\ fall precautionary measures) done. Abuse screen: Denies threats or abuse. Denies injuries from another. Nutritional screening: No deficits noted. Nutritional screening: No deficits noted. Tuberculosis screening: No symptoms or risk factors identified. Assessment: 03:55 Respiratory: Breath sounds are clear bilaterally. pc2 04:23 Reassessment: see triage note. pc2 05:00 Reassessment: Patient and/or family updated on plan of care and expected duration. Pain ha1 level reassessed. Patient is alert, oriented x 3, equal unlabored respirations, skin warm/dry/pink. Patient states feeling better. Patient states symptoms have improved. 06:00 Reassessment: Patient and/or family updated on plan of care and expected duration. Pain ha1 level reassessed. Patient is alert, oriented x 3, equal unlabored respirations, skin warm/dry/pink. Patient states feeling better. Patient states symptoms have improved. 07:15 General: Appears in no apparent distress. comfortable, well groomed, well developed, kc6 Behavior is calm, cooperative, appropriate for age. Pain: Denies pain. Neuro: Level of Consciousness is awake, alert, obeys commands, Oriented to person, place, time, situation, Appropriate for age. Cardiovascular: Denies chest pain, shortness of breath, Heart tones S1 S2 present Capillary refill < 3 seconds Rhythm is sinus rhythm. Respiratory: Airway is patent Trachea midline Respiratory effort is even, unlabored, Respiratory pattern is regular, symmetrical. GI: No signs and/or symptoms were reported involving the gastrointestinal system. : No signs and/or symptoms were reported regarding the genitourinary system. EENT: No signs and/or symptoms were reported regarding the EENT system. Derm: No signs and/or symptoms reported regarding the dermatologic system. Skin is intact, is healthy with good turgor, Skin is pink, warm \T\ dry. Musculoskeletal: No signs and/or symptoms reported regarding the musculoskeletal system. Circulation, motion, and sensation intact. Capillary refill < 3 seconds, Range of motion: intact in all extremities. 08:15 Reassessment: Patient appears in no apparent distress at this time. No changes from kc6 previously documented assessment. Patient and/or family updated on plan of care and expected duration. Pain level reassessed. Patient is alert, oriented x 3, equal unlabored respirations, skin warm/dry/pink. 09:23 Reassessment: attempted to call report to ICU. nurse not ready at this time. kc6 Vital Signs: 03:46 BP 169 / 75; Pulse 85; Resp 18; Pulse Ox 100% on R/A; pc2 04:23 BP 170 / 52; Pulse 76; Resp 18; Pulse Ox 100% ; pc2 05:03 BP 155 / 59; Pulse 77; Resp 18; Pulse Ox 98% on R/A; pc2 07:50 BP 145 / 82; Pulse 76; Resp 18 S; Pulse Ox 97% on R/A; kc6 08:31 BP 169 / 67; Pulse 81; Resp 18 S; Pulse Ox 97% on R/A; kc6 ED Course: 03:44 Patient arrived in ED. vc1 03:45 Edel Moscoso, RN is Primary Nurse. pc2 03:49 Enmanuel Ramirez MD is Attending Physician. mikayla 03:50 Triage completed. pc2 03:50 Inserted saline lock: 20 gauge in right antecubital area, using aseptic technique. pc2 Blood collected. 03:50 Patient placed in an exam room, on a stretcher, on assistant quality manager, on pulse oximetry. pc2 04:00 Client placed on continuous cardiac and pulse oximetry monitoring. NIBP monitoring pc2 applied. 04:00 Patient has correct armband on for positive identification. Placed in gown. Bed in low pc2 position. Call light in reach. Side rails up X2. 04:28 XRAY Chest (1 view) In Process Unspecified. EDMS 04:45 EKG done, by ED staff, reviewed by Enmanuel Ramirez MD. pc2 05:01 Provided Education on: POC and time frame. pc2 06:09 Diaz Espinoza MD is Hospitalizing Provider. mikayla 07:00 CT Chest Wo Con In Process Unspecified. EDMS 07:00 Report received from Edel Moscoso RN. kc6 07:00 Warm blanket given. Pillow given. kc6 07:49 Inserted saline lock: 20 gauge in left antecubital area, using aseptic technique. kc6 08:31 No provider procedures requiring assistance completed. Patient admitted, IV remains in kc6 place. Administered Medications: 05:56 Discontinued: ns 0.9% 1000 ml IV at 125 ml/hr continuous mikayla 03:54 Drug: EPINEPHrine 1:1000 Sub-Q 1:1,000 0.4 ml Sub-Q once Route: Sub-Q; Site: right pc2 upper arm; 05:05 Follow up: Response: No adverse reaction pc2 03:55 Drug: NS 0.9% IV 500 ml IV at bolus once Route: IV; Rate: bolus; Site: right pc2 antecubital; 07:00 Follow up: Response: No adverse reaction; IV Status: Completed infusion; IV Intake: kc6 500ml 03:55 Drug: MethylPrednisoLONE IVP 250 mg IVP once Route: IVP; Site: right antecubital; pc2 05:04 Follow up: Response: No adverse reaction pc2 03:56 Drug: Decadron - Dexamethasone IVP 10 mg IVP once Route: IVP; Site: right antecubital; pc2 05:04 Follow up: Response: No adverse reaction pc2 03:58 Drug: Famotidine IVP 40 mg IVP once; dilute with 10 mL 0.9% NaCl; give over 2 minutes pc2 Route: IVP; Site: right antecubital; 05:05 Follow up: Response: No adverse reaction pc2 03:59 Drug: diphenhydrAMINE IVP 50 mg IVP once Route: IVP; Site: right antecubital; pc2 05:05 Follow up: Response: No adverse reaction pc2 04:04 Drug: Albuterol Inhalation 7.5 mg Inhalation once Route: Inhalation; pc2 05:04 Follow up: Response: No adverse reaction pc2 04:04 Drug: Ipratropium Inhalation Aerosol 0.5 mg Inhalation once Route: Inhalation; pc2 05:04 Follow up: Response: No adverse reaction pc2 04:05 Drug: diphenhydrAMINE IVP 25 mg IVP once Route: IVP; Site: right antecubital; pc2 05:05 Follow up: Response: No adverse reaction pc2 04:10 Drug: tranexamic acid 1000 mg IV at per protocol once; administer at a rate not to pc2 exceed 100 mg per min Route: IV; Rate: per protocol; Site: right antecubital; 04:20 Follow up: Response: No adverse reaction; IV Status: Completed infusion; IV Intake: pc2 100ml 05:05 Drug: NS 0.9% IV 1000 ml IV at 125 ml/hr continuous Route: IV; Rate: 125 ml/hr; Site: pc2 right antecubital; 07:49 Follow up: Response: No adverse reaction; IV Status: Order to discontinue infusion; IV kc6 Intake: 500ml 07:49 Drug: NS 0.9% with KCl IV 20 mEq/L 1000 ml IV at 125 ml/hr continuous Route: IV; Rate: kc6 125 ml/hr; Site: right antecubital; 08:29 Follow up: Response: No adverse reaction; IV Status: Infusion continued upon admission kc6 07:49 Drug: Magnesium Sulfate IVPB 1 grams IVPB once over 1 hrs Route: IVPB; Infused Over: 1 kc6 hrs; Site: left antecubital; 08:59 Follow up: Response: No adverse reaction; IV Status: Completed infusion; IV Intake: kc6 100ml 09:00 Drug: Piperacillin-Tazobactam IVPB 3.375 grams IVPB once over 60 mins; (mix in NS 100 kc6 mL) Route: IVPB; Infused Over: 60 mins; Site: left antecubital; 09:42 Follow up: Response: No adverse reaction; IV Status: Completed infusion; IV Intake: kc6 100ml 09:42 Drug: Potassium Chloride IV 20 mEq IV at per protocol once; administer over 1-2 hours kc6 Route: IV; Rate: per protocol; Site: left antecubital; Medication: 04:59 VIS not applicable for this client. pc2 Intake: 04:20 IV: 100ml; Total: 100ml. pc2 07:00 IV: 500ml; Total: 600ml. kc6 07:49 IV: 500ml; Total: 1100ml. kc6 08:59 IV: 100ml; Total: 1200ml. kc6 09:42 IV: 100ml; Total: 1300ml. kc6 Outcome: 06:11 Decision to Hospitalize by Provider. mikayla 08:31 Admitted to ER Hold. Please see [facility] for further documentation. kc6 08:31 Condition: stable 08:31 Instructed on the need for admit, 10:41 Patient left the ED. eb Signatures: Dispatcher [employer] EDEnmanuel Gan MD MD cha Botello, Elizabeth eb Shruthi Meza RN RN vc1 Sarah Corey RN RN ha1 Alyse Fisher RN RN kc6 Edel Moscoso RN RN pc2
--- NOTE | 2024-02-13 07:14 | RAD REPORT ---
EXAM DESCRIPTION: CT - Thorax Wo Con CLINICAL HISTORY: Chest pain COUGH COMPARISON: <Comparisons> FINDINGS: Mild linear atelectasis is seen in both posterior lung bases. No focal consolidation to in dicate pneumonia. No pleural thickening or pleural effusion. No pneumothorax. No axillary, mediastinal or hilar adenopathy. No concerning bony finding. Cholecystectomy clips. All CT scans are performed using dose optimization technique as appropriate and may include automated exposure control or mA/KV adjustment according to patient size. IMPRESSION: Mild linear atelectasis in both posterior lung bases.
[2024-02-13] MEDS ORDERED: NS KCL 20MEQ 1,000 ML IV ONE (07:36)
[2024-02-13] MEDS ORDERED: KCL 20 MEQ/100 mL IVPB 100 ML IV ONE (07:36)
[2024-02-13] MEDS ORDERED: MAGNESIUM SULFATE 1 gm IVPB 1 GM/100 ML BAG IV ONE (07:37)
[2024-02-13] MEDS ORDERED: PIPERACIL/TAZO 3.375 GM VIAL IV ONE (07:37)
--- NOTE | 2024-02-13 09:37 | P.HP ---
Certification for Inpatient Patient admitted to: Observation With expected LOS: <2 Midnights Patient will require the following post-hospital care: None Practitioner: I am a practitioner with admitting privileges, knowledge of patient current condition, hospital course, and medical plan of care. Services: Services provided to patient in accordance with Admission requirements found in Title 42 Section 412.3 of the Code of Federal Regulations <Ana Edward - Last Filed: 02/13/24 12:29> Patient History Date of Service: 02/13/24 Reason for admission: Angioedema History of Present Illness: Mr. Gill is a 68-year-old male with a past medical history of hypertension, hyperlipidemia, diabetes, GERD, neuropathy, fatty liver, gastroparesis, anaphylaxis, angioedema, osteoarthritis who presented to the emergency department with a complaint of an allergic reaction and a swollen tongue. He has a significant history of angioedema occurring with multiple medications. His first episode he had a tracheostomy, second episode necessitated intubation, but subsequent episodes have generally resolved within 24 hours with treatment. He denies any new medications, foods, or inciting factors. In the emergency department he was given normal saline at 125 mL an hour, epinephrine (1:1000) 0.4mg sc, normal saline 500 cc bolus, 250 mg IV Solu- Medrol, 10 mg IV Decadron, 40 mg IV famotidine, 50 mg IV diphenhydramine, albuterol and Atrovent treatments, 1000 mg IV TXA. He was noted to have some electrolyte abnormalities and a left lower lobe infiltrate on x-ray so was started on electrolyte protocols and Zosyn 3.375 g IV. He will be admitted for observation to ICU to await resolution of his current symptoms. 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 - Family History Brother -: Hypertension, Diabetes Mother -: Hypertension - Social History Smoking Status: Current every day smoker Alcohol use: No CD- Drugs: No Caffeine use: Yes Place of Residence: Home <Ana Edward - Last Filed: 02/13/24 12:29> Date of Service: 02/13/24 <Diaz Espinoza - Last Filed: 02/13/24 13:17> Allergies lisinopril Allergy (Severe, Verified 12/14/20 11:42) Anaphylaxis NSAIDS (Non-Steroidal Anti-Inflamma Allergy (Severe, Verified 12/14/20 11:42) Anaphylaxis valsartan [From Diovan HCT] Allergy (Intermediate, Verified 12/14/20 11:42) SWELLING OF TONGUE carvedilol [From Coreg] Allergy (Verified 12/14/20 11:42) Anaphylaxis nebivolol HCl [From Bystolic] Allergy (Verified 12/14/20 11:42) Shortness of breath cephalexin [From Keflex] Adverse Reaction (Verified 12/14/20 11:42) Anaphylaxis ACES Allergy (Uncoded 12/14/20 11:42) Unknown Home Medications: Esomeprazole Magnesium [Nexium] 40 mg PO DAILY 07/29/16 Metformin ER [Glucophage ER*] 1,000 mg PO BID 07/29/16 glipiZIDE [Glipizide ER] 10 mg PO DAILY 07/29/16 Hydralazine HCl [Apresoline] 100 mg PO TID 10/03/18 Pravastatin Sodium [Pravachol] 40 mg PO BEDTIME 10/12/18 hydrOXYzine pamoate [Hydroxyzine Pamoate] 25 mg PO TIDP PRN 10/12/18 Metformin HCl [Glucophage*] 500 mg PO LUNCH 12/14/20 Nifedipine Xl [Procardia XL*] 90 mg PO DAILY 12/14/20 Pregabalin 200 mg PO TID 12/14/20 predniSONE [Prednisone*] 10 mg PO DAILY #5 tab 05/18/22 hydroCHLOROthiazide [Hydrodiuril*] 25 mg PO DAILY #30 tab 02/03/23 Diphenhydramine [Benadryl Tab/Cap] 25 mg PO Q6HP PRN #30 tab 11/02/23 Epinephrine [Epipen] 0.3 mg IJ PRN PRN #2 syr 11/02/23 Review of Systems 10-point ROS is otherwise unremarkable General: As per HPI ENT: As per HPI <Ana Edward Nima - Last Filed: 02/13/24 12:29> Physical Examination - Physical Exam General: Alert, Oriented x3 HEENT: Other (Moderate,severe tongue edema, + speech, swallow, no current airway compromise) Neck: Supple Respiratory: Normal air movement Cardiovascular: Normal pulses, Regular rate/rhythm Capillary refill: <2 Seconds Gastrointestinal: Normal bowel sounds Musculoskeletal: No clubbing Integumentary: No rashes Neurological: Normal tone, Normal affect, Abnormal speech Lymphatics: No axilla or inguinal lymphadenopathy External genitalia: Deferred Rectal: Deferred - Studies Laboratory Data (last 24 hrs) 02/13/24 02/13/24 02/13/24 07:20 04:20 04:20 WBC 16.30 H Hgb 12.9 L Hct 38.8 L Plt Count 276 PT 11.8 INR 1.07 Sodium Potassium BUN Creatinine Glucose Phosphorus 2.6 Magnesium Total Bilirubin AST ALT Alkaline Phosphatase 02/13/24 04:20 WBC Hgb Hct Plt Count PT INR Sodium 141 Potassium 2.3 L* BUN 12 Creatinine 0.85 Glucose 199 H Phosphorus Magnesium 1.5 L Total Bilirubin 0.3 AST 17 ALT 31 Alkaline Phosphatase 46 <EdwardAna Nima - Last Filed: 02/13/24 12:29> - Studies Laboratory Data (last 24 hrs) 02/13/24 02/13/24 02/13/24 07:20 04:20 04:20 WBC 16.30 H Hgb 12.9 L Hct 38.8 L Plt Count 276 PT 11.8 INR 1.07 Sodium Potassium BUN Creatinine Glucose Phosphorus 2.6 Magnesium Total Bilirubin AST ALT Alkaline Phosphatase 02/13/24 04:20 WBC Hgb Hct Plt Count PT INR Sodium 141 Potassium 2.3 L* BUN 12 Creatinine 0.85 Glucose 199 H Phosphorus Magnesium 1.5 L Total Bilirubin 0.3 AST 17 ALT 31 Alkaline Phosphatase 46 <Diaz Espinoza - Last Filed: 02/13/24 13:17> Assessment and Plan - Plan Angioedema Monitor in ICU N.p.o. except small ice chips as needed Solu-Medrol 60 mg IV every 6 hours Pepcid 20 mg IV twice daily Head of bed at 30 degrees Electrolyte derangement Monitor and replete NS at 100 mL/h Pneumonia: blood cultures Zosyn 3.375 g IV every 8 Repeat chest x-ray tomorrow Neb treatments every 4h O2 per protocol Continue with gentle hydration Monitor and trend labs including CBC, CMP, and lactate as needed Hypertension Monitor and trend Home meds as indicated Diabetes Glucose monitoring every 6h Sliding scale insulin with mild protocol every 6h GI and DVT prophylaxis Pepcid/SCD - Advance Directives Does patient have a Living Will: No Does patient have a Durable POA for Healthcare: No - Code Status/Comfort Care Code Status Assessed: Yes (Full) <Ana Edward - Last Filed: 02/13/24 12:29> - Plan Pt seen and examined. I agree with the note by the PUMPER GAGER APPRENTICE. Pt is a 68 yo male with past medical history of angioedema, GERD, HLD, DM II and Htn who presents with lip/ tongue swelling and difficulty swallowing due to angioedema. Of note, pt has had multiple episodes of angioedema over the past 4 years. He denies taking any ACEI. On admission, pt reports difficulty with speech and swallowing. Lab studies show WBC 16.3, Hgb 12.9, K 2.3, Na 141, cr 0.85, lactate 3.0 and plt 276. At bedside, pt is in NAD A/P: Angioedema: Pt denies any ACEI exposure. Will continue steroid, Pepcid and Benadryl. Pt passed swallow eval. Will give CLD. Admit pt in ICU. Hypokalemia: K is 2.3. Will replete and monitor. Magnesium is 1.5. Hypomagnesemia: Mag is 1.5. Will replete and monitor. Lactic acidosis: Lactate is 3.0. Will give IVF and monitor. Leukocytosis: Will r/o aspiration pna or UTI. Continue zosyn. HLD: statin DM II: Continue accuchek, SSI and ADA diet Htn: Continue home med Nutrition: Continue CLD. Pt passed swallow eval. DVT ppx: SCD Code: full <Diaz Espinoza - Last Filed: 02/13/24 13:17>
[2024-02-13] MEDS: NA CHLORIDE 0.9% 1,000 ML IV SCH (11:17)
[2024-02-13] MEDS: ALBUTEROL 2.5 MG/3 ML NEB SOL NEB SCH ×2 (11:30→20:49)
[2024-02-13] MEDS: DIPHENHYDRAMINE 50 MG/ML VIAL IV PRN (12:56)
[2024-02-13] MEDS: METHYLPREDNISOLONE 125 MG INJ IV SCH (12:57)
[2024-02-13] MEDS: INSULIN REGULAR (HUMAN) 100 UNIT/ML SQ SCH ×2 (12:57→20:54)
[2024-02-13 13:41] LABS: Magnesium 2.1 mg/dL (1.6-2.4); Potassium 4.1 mEq/L (3.5-5.1)
[2024-02-13] MEDS: MORPHINE 2 MG/ML SYR IV PRN (14:40)
[2024-02-13] MEDS: PIPER TAZO 3.375 GM in NA CHLORIDE 0.9% 100 ML IV SCH (17:41)
[2024-02-13 17:45] VITALS: BMI 27.6
[2024-02-13] MEDS: FAMOTIDINE 20 MG/2 ML VIAL IV SCH (20:07)
[2024-02-13] MEDS: ARFORMOTEROL TARTRATE 15 MCG/2 ML VIAL.NEB NEB SCH (20:49)
[2024-02-14 02:28] VITALS: O2SAT 100
[2024-02-14] MEDS: HYDRALAZINE HCL 20 MG/ML VIAL IV PRN (06:27)
[2024-02-14 06:38] LABS: Absolute Basophils 0.1 K/uL (0-0.5); Absolute Lymphocytes (CBC) 0.6 K/uL (0.7-4.9); Absolute Monocytes 0.3 K/uL (0.1-1.3); Absolute Neutrophil 11.5 K/uL (1.8-8.0); Hematocrit 36.8 % (39.6-49.0); Hemoglobin 12.4 g/dL (13.6-17.9); Lymphocytes % 4.9 % (15.3-44.8); MCH 29.3 pg (27.0-35.0); MCHC 33.7 g/dL (32.0-36.0); Monocytes % 2.6 % (3.3-12.3); Neutrophils % 91.5 % (41.7-73.7); Nucleated Red Blood Cells % 0.1 % (0-0); Platelets 223 thou/uL (152-406); RBC Red Blood Cell Count 4.24 M/uL (4.33-5.43)
[2024-02-14 06:52] LABS: Albumin 3.4 g/dL (3.4-5.0); Albumin/Globulin Ratio 1.2 (1.1-1.8); Anion Gap 8.6 mEq/L (5.0-15.0); Bilirubin Total 0.3 mg/dL (0.2-1.0); Globulin 2.9 g/dL (2.3-3.5); Potassium 3.6 mEq/L (3.5-5.1); Protein, Total 6.3 g/dL (6.4-8.2)
--- NOTE | 2024-02-14 07:06 | P.DS ---
Admission Date: 02/13/24 Discharge Date: 02/14/24 Reason for Admission: Angioedema Consultations: none Brief History of Present Illness: Mr. Gill is a 68-year-old male with a past medical history of hypertension, hyperlipidemia, diabetes, GERD, neuropathy, fatty liver, gastroparesis, anaphylaxis, angioedema, osteoarthritis who presented to the emergency department with a complaint of an allergic reaction and a swollen tongue. He has a significant history of angioedema occurring with multiple medications. His first episode he had a tracheostomy, second episode necessitated intubation, but subsequent episodes have generally resolved within 24 hours with treatment. He denies any new medications, foods, or inciting factors. In the emergency department he was given normal saline at 125 mL an hour, epinephrine (1:1000) 0.4mg sc, normal saline 500 cc bolus, 250 mg IV Solu- Medrol, 10 mg IV Decadron, 40 mg IV famotidine, 50 mg IV diphenhydramine, albuterol and Atrovent treatments, 1000 mg IV TXA. He was noted to have some electrolyte abnormalities and a left lower lobe infiltrate on x-ray so was started on electrolyte protocols and Zosyn 3.375 g IV. He will be admitted for observation to ICU to await resolution of his current symptoms. Hospital Course: Mr. Gill returned to baseline. He would like to go home to prepare for impending storm. He states he has epi, benadryl, pepcid and all the supplies he needs should he have a repeat angioedema episode. He agrees to f/u with Dr. Cruz and his PCP. He is well aware of need for return to ED prn. <Ana Edward - Last Filed: 02/14/24 07:01> Admission Date: 02/13/24 Discharge Date: 02/14/24 Hospital Course: Pt seen and examined. I agree with the note by the IMPLEMENTATION SPECIALIST. The angioedema resolved an dpt tolerated food. He has epi, pepcid and benadryl at home. He was advised to follow up with Dr. Cruz. Ok to dc pt. <Diaz Espinoza - Last Filed: 02/14/24 11:25> Disposition: ROUTINE DISCHARGE Discharge Condition: GOOD Vital Signs/Physical Exam: Temp Pulse Resp BP Pulse Ox 97.8 F 66 21 H 187/93 H 98 02/14/24 04:00 02/14/24 05:57 02/14/24 06:32 02/14/24 05:57 02/14/24 06:32 General: Alert, In no apparent distress, Oriented x3 HEENT: Atraumatic, Normocephalic Neck: Supple Respiratory: Clear to auscultation bilaterally, Normal air movement Cardiovascular: Regular rate/rhythm Capillary refill: <2 Seconds Gastrointestinal: Soft and benign Musculoskeletal: No clubbing Integumentary: No rashes Neurological: Normal speech, Normal strength at 5/5 x4 extr Lymphatics: No axilla or inguinal lymphadenopathy External genitalia: Deferred Rectal: Deferred Laboratory Data at Discharge: WBC 12.60 thou/uL (4.3-10.9) H 02/14/24 06:05 Hgb 12.4 g/dL (13.6-17.9) L 02/14/24 06:05 Hct 36.8 % (39.6-49.0) L 02/14/24 06:05 Plt Count 223 thou/uL (152-406) 02/14/24 06:05 PT 11.8 SECONDS (9.4-12.5) 02/13/24 04:20 INR 1.07 02/13/24 04:20 Sodium 138 mEq/L (136-145) 02/14/24 06:05 Potassium 3.6 mEq/L (3.5-5.1) 02/14/24 06:05 BUN 10 mg/dL (7-18) 02/14/24 06:05 Creatinine 0.60 mg/dL (0.70-1.30) L 02/14/24 06:05 Glucose 186 mg/dL (74-106) H 02/14/24 06:05 Phosphorus 2.6 mg/dL (2.5-4.9) 02/13/24 07:20 Magnesium 2.0 mg/dL (1.6-2.4) 02/14/24 06:05 Total Bilirubin 0.3 mg/dL (0.2-1.0) 02/14/24 06:05 AST 17 U/L (15-37) 02/14/24 06:05 ALT 36 U/L (16-61) 02/14/24 06:05 Alkaline Phosphatase 45 U/L (45-117) 02/14/24 06:05 Triglycerides 55 mg/dL (<150) 02/14/24 06:05 Cholesterol 112 mg/dL (<200) 02/14/24 06:05 HDL Cholesterol 71 mg/dL (40-60) H 02/14/24 06:05 Cholesterol/HDL Ratio 1.58 02/14/24 06:05 <Edward,Ana Nima - Last Filed: 02/14/24 07:01> Vital Signs/Physical Exam: Temp Pulse Resp BP Pulse Ox 97.1 F 83 14 176/89 H 99 02/14/24 07:00 02/14/24 08:00 02/14/24 08:00 02/14/24 08:00 02/14/24 08:00 Laboratory Data at Discharge: WBC 12.60 thou/uL (4.3-10.9) H 02/14/24 06:05 Hgb 12.4 g/dL (13.6-17.9) L 02/14/24 06:05 Hct 36.8 % (39.6-49.0) L 02/14/24 06:05 Plt Count 223 thou/uL (152-406) 02/14/24 06:05 PT 11.8 SECONDS (9.4-12.5) 02/13/24 04:20 INR 1.07 02/13/24 04:20 Sodium 138 mEq/L (136-145) 02/14/24 06:05 Potassium 3.6 mEq/L (3.5-5.1) 02/14/24 06:05 BUN 10 mg/dL (7-18) 02/14/24 06:05 Creatinine 0.60 mg/dL (0.70-1.30) L 02/14/24 06:05 Glucose 186 mg/dL (74-106) H 02/14/24 06:05 Phosphorus 2.6 mg/dL (2.5-4.9) 02/13/24 07:20 Magnesium 2.0 mg/dL (1.6-2.4) 02/14/24 06:05 Total Bilirubin 0.3 mg/dL (0.2-1.0) 02/14/24 06:05 AST 17 U/L (15-37) 02/14/24 06:05 ALT 36 U/L (16-61) 02/14/24 06:05 Alkaline Phosphatase 45 U/L (45-117) 02/14/24 06:05 Triglycerides 55 mg/dL (<150) 02/14/24 06:05 Cholesterol 112 mg/dL (<200) 02/14/24 06:05 HDL Cholesterol 71 mg/dL (40-60) H 02/14/24 06:05 Cholesterol/HDL Ratio 1.58 02/14/24 06:05 <Diaz Espinoza - Last Filed: 02/14/24 11:25> Diet: Regular Activity: Ad esperanza <Ana Edward Nima - Last Filed: 02/14/24 07:01> <Diaz Espinoza - Last Filed: 02/14/24 11:25> Home Medications: Esomeprazole Magnesium [Nexium] 40 mg PO DAILY 07/29/16 Metformin ER [Glucophage ER*] 1,000 mg PO BID 07/29/16 glipiZIDE [Glipizide ER] 10 mg PO DAILY 07/29/16 Hydralazine HCl [Apresoline] 100 mg PO TID 10/03/18 Pravastatin Sodium [Pravachol] 40 mg PO BEDTIME 10/12/18 hydrOXYzine pamoate [Hydroxyzine Pamoate] 25 mg PO TIDP PRN 10/12/18 Metformin HCl [Glucophage*] 500 mg PO LUNCH 12/14/20 Nifedipine Xl [Procardia XL*] 90 mg PO DAILY 12/14/20 Pregabalin 200 mg PO TID 12/14/20 predniSONE [Prednisone*] 10 mg PO DAILY #5 tab 05/18/22 hydroCHLOROthiazide [Hydrodiuril*] 25 mg PO DAILY #30 tab 02/03/23 Diphenhydramine [Benadryl Tab/Cap] 25 mg PO Q6HP PRN #30 tab 11/02/23 Epinephrine [Epipen] 0.3 mg IJ PRN PRN #2 syr 11/02/23 Physician Discharge Instructions: PROBLEM: Angioedema, Electrolyte Derangement GOAL: Clear understanding of disease process INSTRUCTIONS: Mr. Gill returned to baseline. He would like to go home to prepare for impending storm. He states he has epi, benadryl, pepcid and all the supplies he needs should he have a repeat angioedema episode. He agrees to f/u with Dr. Cruz and his PCP. He is well aware of need for return to ED prn. Ok to d/c IV and discharge home. Follow up PCP and Dr. Cruz in a week or two Return to ED immediately as needed for repeat problem If you have any questions regarding hospital stay, feel free to call [phone]. Diet: Regular Activity: Ad esperanza DME DME: Date Ordered: Name of Company: [employer] Services Needed: Name of Company: Date or Referral: [employer] Influenza Vaccine Indicated: Influenza Vaccine Given: Date Given: Pneumonia Vaccine Indicated: No Pneumonia Vaccine Given: Date Given: Followup: Mary Alberto NP [Primary Care Provider] -
[2024-02-14] MEDS ORDERED: HYDRALAZINE HCL 20 MG/ML VIAL IV PRN (07:33)
[2024-02-14] MEDS: POTASSIUM 25 MEQ EFFERV TAB PO ONE (07:54)
[2024-02-14 08:08] LABS: Blood Morphology Comment NOT SEEN (NOT SEEN); Platelet Estimate ADEQ; White Blood Cell Scan OK (OK)
[2024-02-14 08:19] VITALS: BP 176/89; TEMP 97.1
--- NOTE | 2024-02-14 14:10 | RAD REPORT ---
EXAM DESCRIPTION: Chest single view CLINICAL HISTORY: COPD;Dyspnea COMPARISON: None. TECHNIQUE: XR CHEST 1 VIEW 02/13/2024 3:51 AM CDT FINDINGS: Cardiac silhouette is normal in size. There is mild left basilar airspace disease. There i s no pleural effusion. There is no pneumothorax. There are no acute osseous findings. IMPRESSION: Possible left basilar pneumonia. Electronically signed by: Jean Dumas MD 02/13/2024 05:23 AM CDT RP Due to temporary technical issues with the PACS/Fluency reporting system, reports are being signed by the in house radiologists without review as a courtesy to insure prompt reporting. The interpreting radiologist is fully responsible for the content of the report.
--- NOTE | 2024-02-16 09:04 | EKG ---
Test Date: 2024-02-13 Test Time: 04:40:54 [employer]der Mixer Operator: PIETRO MEASUREMENT RESULTS: Intervals: Rate: 73 OR: 164 QRSD: 104 QT: 552 QTc: 608 [place]: P: 70 OR: 164 QRS: -25 T: 75 INTERPRETIVE STATEMENTS: Normal sinus rhythm Nonspecific ST and T wave abnormality Prolonged QT Abnormal ECG Compared to ECG 07/04/2023 03:58:02 ST (T wave) deviation now present Prolonged QT interval now present Electronically Signed On 02-16-24 09:03:54 CDT by James Estrada
== END 2024-02-14 08:05 | disposition home or self-care (01) ==
LOC: ER 03:42 → ERHOLD 09:10 → 3RD-ICU 10:15
PROVIDERS: ADMIT Hospitalist; ATTEND Hospitalist
DX: T78.3XXA Angioneurotic edema, initial encounter (principal); J18.9 Pneumonia, unspecified organism; I10 Essential (primary) hypertension; E11.9 Type 2 diabetes mellitus without complications; K21.9 Gastro-esophageal reflux disease without esophagitis; E78.5 Hyperlipidemia, unspecified; K76.0 Fatty (change of) liver, not elsewhere classified; M19.90 Unspecified osteoarthritis, unspecified site; E87.6 Hypokalemia; E83.42 Hypomagnesemia; E87.8 Other disorders of electrolyte and fluid balance, not elsewhere classified
CPT/HCPCS: 87040 ×2; 85025 ×2; 80048; 36415 ×2; 83735 ×3; 84100; 84132; 85610; 80061; 82947 ×3; 80076; 83605 ×4; 84484; 80053; 83880; 71250; 71045; 94640; 96372; 99285; J3480 ×2; J3475; J0360; J1200 ×2; J2543 ×3; J7613 ×5; J7644; J1100; J2270 ×3; J7605; J2919 ×5; J7030 ×3; 93005; J0171

== ENCOUNTER 2024-07-29 23:02 | Emergency (ER) | payer OTHER ==
--- OUTSIDE RECORDS SUMMARY | 2024-07-29 23:06 | XMS REPORT | Continuity of Care Document ---
Author Name Unknown Address [address] [facility] [address] [place] [address] [facility] thconnect Address [address] [facility] [place] [address] Care Team Providers Care Scout Leaser Name Role Phone Mary Alberto Attending Clinician Unavailable Payers Payer Name Policy Type Policy Number Effective Date Expirati on Date Source [facility] 111 [id number] 2022 00:00:00 [facility] Problems Condition Name Condition Details Condition Category Status Onset Date Resolution Date Last Treatment Date Treating Clinician Comments Source [id number] Detrusor instabilit y Problem [facility] [id number] Urge incontinen ce Problem [facility] 129986741 BMI 28.0-28.9, adult Problem [facility] 61789307 Diarrhea, functional Problem [facility] 4024227 Primary insomnia Problem [facility] [id number] Lumbar back pain with radiculopa thy affecting lower extremity Problem [facility] 40666633 Disorder of urinary system, unspecifie d Problem [facility] Frequency Frequency Problem Comm [facility] Comprehens ladi eye examinatio n (procedure ) Routine eye exam Problem [facility] [id number] Right upper quadrant abdominal pain Problem [facility] Seasonal allergic rhinitis Seasonal allergic reaction Problem [facility] Peripheral neuropathy Peripheral neuropathy Problem [facility] Disturbanc e of skin sensation Disturbanc e of skin sensation Problem [facility] Angioedema [facility] Hypertensi on Hypertensi on Problem [facility] [id number] Wound of skin Problem [facility] [id number] S/P TURP (status post transureth ral resection of prostate) Problem [facility] 25873787 Dysuria Problem [facility] 42813345 Type 2 diabetes mellitus with other diabetic kidney complicati on Problem [facility] [id number] Other postherpet ic nervous system involvemen t Problem [facility] [id number] Hospital discharge follow-up Problem [facility] 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 Problem [facility] 23424309 Diarrhea of presumed infectious origin Problem [facility] 129263208 Acquired anal stenosis Problem [facility] [id number] Lower urinary tract symptoms (LUTS) Problem [facility] [id number] BPH loc w urin obs/LUTS Problem [facility] Benign prostatic hyperplasi a BPH (benign prostatic hyperplasi a) Problem [facility] 03479853 Prostatiti s, acute Problem [facility] 373075990 ED (erectile dysfunctio n) of organic origin Problem [facility] 959613353 MCC current use of insulin Problem [facility] Overactive bladder Overactive bladder Problem [facility] Impotence of organic origin ED (erectile dysfunctio n) Problem [facility] [id number] 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 776658158 Incomplete emptying of bladder Problem [facility] Allergies, Adverse Reactions, Alerts Allergy Name Allergy Type Status Severity Reaction(s) Onset Date Inactive Date Treating Clinician Comments Source lisinopr il lisinopr il Active angioedema [facility] valsarta n valsarta n Active angioedema [facility] 6335 Drug allergy Active Unknown [facility] cephalex in cephalex in Active shock [facility] carvedil ol carvedil ol Active Unknown [facility] Social History Social Habit Start Date Stop Date Quantity Comments Source History of Tobacco Use Current Smoker [facility] Sex Assigned At [facility] Smoking Status Start Date Stop Date Source Current Smoker 2024-06-20 00:00:00 [facility] Never Smoker [facility] Medications Ordered Medication Name Filled Medication Name Start Date Stop Date Current Medication? Ordering Clinician Indication Dosage Frequency Signature (SIG) Comments Components Source Pregabalin 225 MG Pregabalin 225 MG 2023-08 0-29 00:00: 00 No 1{capsu le} BID Pregabalin 225 MG Nystatin 284142 UNIT/ML Nystatin 912331 UNIT/ML 4-23 00:00: 00 No 4{ml} QID Nystatin 490834 UNIT/ML Doxycycline Hyclate 100 MG Doxycycline Hyclate [...] metFORMIN HCl 500 MG No 1{table t_with_ meals} QD metFORMIN HCl 500 MG metFORMIN HCl [...] MG hydrOXYzine HCl 25 MG No 1{table t_as_ne eded} TID hydrOXYzin e HCl 25 MG Immunizations Ordered Immunization Name Filled Immunization Name Date Status Comments Source Flucelvax - multidose vial Flucelvax - multidose vial 2021-07-31 17:04:00 [facility] Flucelvax - multidose vial Flucelvax - multidose vial 2021-07-31 17:04:00 [facility] Flucelvax - multidose vial Flucelvax - multidose vial 2021-07-31 17:04:00 Completed [facility] Flucelvax - multidose vial Flucelvax - multidose vial 2021-07-31 17:04:00 Completed [facility] Flucelvax - multidose vial Flucelvax - multidose vial 2021-07-31 17:04:00 Completed [facility] Flucelvax - multidose vial Flucelvax - multidose vial 2021-07-31 17:04:00 Completed [facility] Flucelvax - multidose vial Flucelvax - multidose vial 2021-07-31 17:04:00 Completed [facility] Flucelvax - multidose vial Flucelvax - multidose vial 2021-07-31 17:04:00 Completed [facility] Flucelvax - multidose vial Flucelvax - multidose vial 2021-07-31 17:04:00 Completed [facility] Flucelvax - multidose vial Flucelvax - multidose vial 2021-07-31 17:04:00 Completed [facility] Flucelvax - multidose vial Flucelvax - multidose vial 2021-07-31 17:04:00 Completed [facility] Flucelvax - multidose vial Flucelvax - multidose vial 2021-07-31 17:04:00 Completed [facility] Flucelvax - multidose vial Flucelvax - multidose vial 2021-07-31 17:04:00 Completed [facility] Flucelvax - multidose vial Flucelvax - multidose vial 2021-07-31 17:04:00 Completed [facility] Flucelvax - multidose vial Flucelvax - multidose vial 2021-07-31 17:04:00 Completed [facility] Flucelvax - multidose vial Flucelvax - multidose vial 2021-07-31 17:04:00 Completed [facility] Flucelvax - multidose vial Flucelvax - multidose vial 2021-07-31 17:04:00 Completed [facility] Flucelvax - multidose vial Flucelvax - multidose vial 2021-07-31 17:04:00 Completed [facility] Flucelvax - multidose vial Flucelvax - multidose vial 2021-07-31 17:04:00 Completed [facility] Flucelvax - multidose vial Flucelvax - multidose vial 2021-07-31 17:04:00 Completed [facility] Flucelvax - multidose vial Flucelvax - multidose vial 2021-07-31 17:04:00 Completed [facility] Flucelvax - multidose vial Flucelvax - multidose vial 2021-07-31 17:04:00 Completed [facility] Flucelvax - single dose syringe Flucelvax - single dose syringe 2019-05-05 17:06:00 Completed [facility] Flucelvax - single dose syringe Flucelvax - single dose syringe 2019-05-05 17:06:00 Completed [facility] Flucelvax - single dose syringe Flucelvax - single dose syringe 2019-05-05 17:06:00 Completed [facility] Flucelvax - single dose syringe Flucelvax - single dose syringe 2019-05-05 17:06:00 Completed [facility] Flucelvax - single dose syringe Flucelvax - single dose syringe 2019-05-05 17:06:00 Completed [facility] Flucelvax - single dose syringe Flucelvax - single dose syringe 2019-05-05 17:06:00 Completed [facility] Flucelvax - single dose syringe Flucelvax - single dose syringe 2019-05-05 17:06:00 Completed [facility] Flucelvax - single dose syringe Flucelvax - single dose syringe 2019-05-05 17:06:00 Completed [facility] Flucelvax - single dose syringe Flucelvax - single dose syringe 2019-05-05 17:06:00 Completed [facility] Flucelvax - single dose syringe Flucelvax - single dose syringe 2019-05-05 17:06:00 Completed [facility] Flucelvax - single dose syringe Flucelvax - single dose syringe 2019-05-05 17:06:00 Completed [facility] Flucelvax - single dose syringe Flucelvax - single dose syringe 2019-05-05 17:06:00 Completed [facility] Flucelvax - single dose syringe Flucelvax - single dose syringe 2019-05-05 17:06:00 Completed [facility] Flucelvax - single dose syringe Flucelvax - single dose syringe 2019-05-05 17:06:00 Completed [facility] Flucelvax - single dose syringe Flucelvax - single dose syringe 2019-05-05 17:06:00 Completed [facility] Flucelvax - single dose syringe Flucelvax - single dose syringe 2019-05-05 17:06:00 Completed [facility] Flucelvax - single dose syringe Flucelvax - single dose syringe 2019-05-05 17:06:00 Completed [facility] Flucelvax - single dose syringe Flucelvax - single dose syringe 2019-05-05 17:06:00 Completed [facility] Flucelvax - single dose syringe Flucelvax - single dose syringe 2019-05-05 17:06:00 Completed [facility] Flucelvax - single dose syringe Flucelvax - single dose syringe 2019-05-05 17:06:00 Completed [facility] Flucelvax - single dose syringe Flucelvax - single dose syringe 2019-05-05 17:06:00 Completed [facility] Flucelvax - single dose syringe Flucelvax - single dose syringe 2019-05-05 17:06:00 Completed [facility] Flucelvax - single dose syringe Flucelvax - single dose syringe 2019-05-05 17:06:00 Completed [facility] Flucelvax (ccIIV4) - MDV - 0.5mL Flucelvax (ccIIV4) - MDV - 0.5mL Unknown Completed [facility] Flucelvax (ccIIV4) - SDS - 0.5mL Flucelvax (ccIIV4) - SDS - 0.5mL Unknown Completed [facility] Flucelvax (ccIIV4) - MDV - 0.5mL Flucelvax (ccIIV4) - MDV - 0.5mL Unknown Completed [facility] Flucelvax (ccIIV4) - SDS - 0.5mL Flucelvax (ccIIV4) - SDS - 0.5mL Unknown Completed [facility] Flucelvax (ccIIV4) - MDV - 0.5mL Flucelvax (ccIIV4) - MDV - 0.5mL Unknown Completed [facility] Flucelvax (ccIIV4) - SDS - 0.5mL Flucelvax (ccIIV4) - SDS - 0.5mL Unknown Completed [facility] Flucelvax (ccIIV4) - MDV - 0.5mL Flucelvax (ccIIV4) - MDV - 0.5mL Unknown Completed [facility] Flucelvax (ccIIV4) - SDS - 0.5mL Flucelvax (ccIIV4) - SDS - 0.5mL Unknown Completed [facility] Flucelvax (ccIIV4) - MDV - 0.5mL Flucelvax (ccIIV4) - MDV - 0.5mL Unknown Completed [facility] Flucelvax (ccIIV4) - SDS - 0.5mL Flucelvax (ccIIV4) - SDS - 0.5mL Unknown Completed [facility] Flucelvax (ccIIV4) - MDV - 0.5mL Flucelvax (ccIIV4) - MDV - 0.5mL Unknown Completed [facility] Flucelvax (ccIIV4) - SDS - 0.5mL Flucelvax (ccIIV4) - SDS - 0.5mL Unknown Completed [facility] Flucelvax (ccIIV4) - MDV - 0.5mL Flucelvax (ccIIV4) - MDV - 0.5mL Unknown Completed [facility] Flucelvax (ccIIV4) - SDS - 0.5mL Flucelvax (ccIIV4) - SDS - 0.5mL Unknown Completed [facility] Flucelvax (ccIIV4) - MDV - 0.5mL Flucelvax (ccIIV4) - MDV - 0.5mL Unknown Completed [facility] Flucelvax (ccIIV4) - SDS - 0.5mL Flucelvax (ccIIV4) - SDS - 0.5mL Unknown Completed [facility] Flucelvax (ccIIV4) - MDV - 0.5mL Flucelvax (ccIIV4) - MDV - 0.5mL Unknown Completed [facility] Flucelvax (ccIIV4) - SDS - 0.5mL Flucelvax (ccIIV4) - SDS - 0.5mL Unknown Completed [facility] Flucelvax (ccIIV4) - MDV - 0.5mL Flucelvax (ccIIV4) - MDV - 0.5mL Unknown Completed [facility] Flucelvax (ccIIV4) - SDS - 0.5mL Flucelvax (ccIIV4) - SDS - 0.5mL Unknown Completed [facility] Flucelvax (ccIIV4) - MDV - 0.5mL Flucelvax (ccIIV4) - MDV - 0.5mL Unknown Completed [facility] Flucelvax (ccIIV4) - SDS - 0.5mL Flucelvax (ccIIV4) - SDS - 0.5mL Unknown Completed [facility] Fluad (IIV) - SDS - 0.5mL Fluad (IIV) - SDS - 0.5mL Unknown Completed [facility] Flucelvax - multidose vial Flucelvax - multidose vial Unknown Completed [facility] Flucelvax - single dose syringe Flucelvax - single dose syringe Unknown Completed [facility] Flucelvax - multidose vial Flucelvax - multidose vial Unknown Completed [facility] Flucelvax - single dose syringe Flucelvax - single dose syringe Unknown Completed [facility] Flucelvax - multidose vial Flucelvax - multidose vial Unknown Completed [facility] Flucelvax - single dose syringe Flucelvax - single dose syringe Unknown Completed [facility] Flucelvax - multidose vial Flucelvax - multidose vial Unknown Completed [facility] Flucelvax - single dose syringe Flucelvax - single dose syringe Unknown Completed [facility] Flucelvax - multidose vial Flucelvax - multidose vial Unknown Completed [facility] Flucelvax - single dose syringe Flucelvax - single dose syringe Unknown Completed [facility] Flucelvax - multidose vial Flucelvax - multidose vial Unknown Completed [facility] Flucelvax - single dose syringe Flucelvax - single dose syringe Unknown Completed [facility] Flucelvax - multidose vial Flucelvax - multidose vial Unknown Completed [facility] Flucelvax - single dose syringe Flucelvax - single dose syringe Unknown Completed [facility] Flucelvax - multidose vial Flucelvax - multidose vial Unknown Completed [facility] Flucelvax - single dose syringe Flucelvax - single dose syringe Unknown Completed [facility] Flucelvax - multidose vial Flucelvax - multidose vial Unknown Completed [facility] Flucelvax - single dose syringe Flucelvax - single dose syringe Unknown Completed [facility] Vital Signs Vital Name Observation Time Observation Value Comments Migue zhao height 2024-06-20 14:20:00 73 [in_i] Commo n [facility] weight 2024-06-20 14:20:00 219.6 [lb_av] Co mmon [facility] temperature 2024-06-20 14:20:00 98.4 [degF] Com mon [facility] bmi 2024-06-20 14:20:00 28.97 kg/m2 Comm [facility] oximetry 2024-06-20 14:20:00 97 [facility] 2024-[facility]-20 14:20:00 16 /min [facility] blood pressure systolic 2024-06-20 14:20:00 154 mm[Hg] [facility] blood pressure diastolic 2024-06-20 14:20:00 75 mm[Hg] [facility] height 2024-03-07 16:00:00 73 [in_i] Commo n [facility] weight 2024-03-07 16:00:00 220 [lb_av] Comm on [facility] bmi 2024-03-07 16:00:00 29.02 kg/m2 Comm [facility] height 2023-12-01 16:00:00 73 [in_i] Commo n [facility] weight 2023-12-01 16:00:00 220 [lb_av] Comm on [facility] bmi 2023-12-01 16:00:00 29.02 kg/m2 Comm [facility] height 2023-09-30 14:00:00 73 [in_i] Commo n [facility] weight 2023-09-30 14:00:00 220.2 [lb_av] Co mmon [facility] temperature 2023-09-30 14:00:00 97.9 [degF] Com mon [facility] bmi 2023-09-30 14:00:00 29.05 kg/m2 Comm [facility] oximetry 2023-09-30 14:00:00 99 % Commo n [facility] respiratory rate 2023-09-30 14:00:00 18 /min [facility] blood pressure systolic 2023-09-30 14:00:00 146 mm[Hg] [facility] blood pressure diastolic 2023-09-30 14:00:00 68 mm[Hg] Common [facility] height 2023-08-25 13:20:00 73 [in_i] Commo n [facility] weight 2023-08-25 13:20:00 220 [lb_av] Comm on [facility] bmi 2023-08-25 13:20:00 29.02 kg/m2 Comm [facility] height 2023-05-21 16:00:00 73 [in_i] Commo n [facility] weight 2023-05-21 16:00:00 217.0 [lb_av] Co mmon [facility] temperature 2023-05-21 16:00:00 98.8 [degF] Com mon [facility] bmi 2023-05-21 16:00:00 28.63 kg/m2 Comm on [facility] oximetry 2023-05-21 16:00:00 95 % Commo n [facility] respiratory rate 2023-05-21 16:00:00 16 /min [facility] blood pressure systolic 2023-05-21 16:00:00 139 mm[Hg] [facility] blood pressure diastolic 2023-05-21 16:00:00 77 mm[Hg] Common [facility] height 2023-02-11 15:20:00 73 [in_i] Commo n [facility] weight 2023-02-11 15:20:00 214.0 [lb_av] Co [facility] temperature 2023-02-11 15:20:00 97.4 [degF] Com [facility] bmi 2023-02-11 15:20:00 28.23 kg/m2 Comm on [facility] oximetry 2023-02-11 15:20:00 95 % Commo n [facility] respiratory rate 2023-02-11 15:20:00 16 /min [facility] blood pressure systolic 2023-02-11 15:20:00 133 mm[Hg] Common [facility] blood pressure diastolic 2023-02-11 15:20:00 79 mm[Hg] Common [facility] height 2022-09-15 16:00:00 73 [in_i] Commo n [facility] weight 2022-09-15 16:00:00 227.8 [lb_av] Co [facility] temperature 2022-09-15 16:00:00 97.3 [degF] Com [facility] bmi 2022-09-15 16:00:00 30.05 kg/m2 Comm [facility] oximetry 2022-09-15 16:00:00 95 % Commo n [facility] respiratory rate 2022-09-15 16:00:00 16 /min [facility] blood pressure systolic 2022-09-15 16:00:00 134 mm[Hg] [facility] blood pressure diastolic 2022-09-15 16:00:00 79 mm[Hg] Common [facility] height 2022-09-15 16:00:00 73 [in_i] Commo n [facility] weight 2022-09-15 16:00:00 227.8 [lb_av] Co mmon [facility] temperature 2022-09-15 16:00:00 97.3 [degF] Com mon [facility] bmi 2022-09-15 16:00:00 30.05 kg/m2 Comm on [facility] oximetry 2022-09-15 16:00:00 95 % Commo n [facility] respiratory rate 2022-09-15 16:00:00 16 /min [facility] blood pressure systolic 2022-09-15 16:00:00 134 mm[Hg] [facility] blood pressure diastolic 2022-09-15 16:00:00 79 mm[Hg] Common [facility] height 2022-09-03 17:00:00 73 [in_i] Commo n [facility] weight 2022-09-03 17:00:00 225.4 [lb_av] Co mmon [facility] temperature 2022-09-03 17:00:00 98.6 [degF] Com [facility] bmi 2022-09-03 17:00:00 29.73 kg/m2 Comm on [facility] oximetry 2022-09-03 17:00:00 99 % Commo n [facility] respiratory rate 2022-09-03 17:00:00 18 /min [facility] blood pressure systolic 2022-09-03 17:00:00 136 mm[Hg] [facility] blood pressure diastolic 2022-09-03 17:00:00 80 mm[Hg] [facility] height 2022-06-16 16:00:00 73 [in_i] Commo n [facility] weight 2022-06-16 16:00:00 220 [lb_av] Comm on [facility] temperature 2022-06-16 16:00:00 97.5 [degF] Com mon [facility] bmi 2022-06-16 16:00:00 29.02 kg/m2 Comm on [facility] oximetry 2022-06-16 16:00:00 96 % Commo n [facility] respiratory rate 2022-06-16 16:00:00 16 /min [facility] blood pressure systolic 2022-06-16 16:00:00 160 mm[Hg] [facility] blood pressure diastolic 2022-06-16 16:00:00 90 mm[Hg] [facility] blood pressure diastolic 2021-07-18 17:00:00 91 mm[Hg] [facility] height 2021-07-18 17:00:00 73 [in_i] Commo n [facility] weight 2021-07-18 17:00:00 225 [lb_av] Comm on [facility] temperature 2021-07-18 17:00:00 97.9 [degF] Com mon [facility] bmi 2021-07-18 17:00:00 29.68 kg/m2 Comm on [facility] oximetry 2021-07-18 17:00:00 99 % Commo n [facility] respiratory rate 2021-07-18 17:00:00 18 /min [facility] blood pressure systolic 2021-07-18 17:00:00 146 mm[facility]Hg[facility] Procedures Procedure Date / Time Performed Performing Clinicia n Source PVR 2023-09-30 00:00:00 [facility] Encounters Start Date/Time End Date/Time Encounter Type Admission Type Attending Clinicians Care Facility Care Department Encounter ID Source 2024-05-24 12:07:00 Outpatient Mary Alberto [facility] [id number] [facility] 2023-10-12 11:49:00 Outpatient Mary Alberto [facility] [id number] [facility] 2023-01-13 08:24:01 [place] [facility] [id number] [facility] 2022-12-16 14:33:02 [place] Mary [facility] [id number] [facility] 2022-11-11 08:03:02 [place] Mary [facility] [id number] [facility] 2022-10-13 15:31:02 Out[place], Mary [facility] [id number] [facility] 2022-09-16 11:26:01 Outpatient [place], Mary [facility] [id number] [facility] 2022-09-11 09:33:00 [place] [facility] [id number] [facility] 2022-06-13 09:11:01 Outpatient [place], Mary [facility] [id number] [facility] 2022-03-27 11:28:02 Outpatient [place], Mary [facility] [id number] [facility] 2022-03-17 09:41:01 Outpatient [place], Mary [facility] [id number] [facility] 2022-03-11 11:41:02 Outpatient [place], Mary [facility] [id number] [facility] 2022-03-06 14:55:01 Outpatient [place], Mary [facility] [id number] [facility] 2022-02-24 08:36:04 Outpatient [place], Mary [facility] [id number] [facility] 2022-02-07 11:10:02 Outpatient [place], Mary [facility] [id number] [facility] 2021-12-23 16:24:01 Outpatient Mary Alberto [facility] [id number] [facility] 2021-10-21 14:49:01 Outpatient Mary Alberto [facility] [id number] [facility] 2021-09-04 14:26:58 Outpatient Mary Alberto [facility] [id number] [facility] 2021-09-04 14:23:10 Outpatient Mary Alberto [facility] [id number] [facility] 2024-06-20 00:00:00 2024-06-20 00:00:00 OFFICE VISIT ESTAB PT LEVEL 4 [facility] [id number] [facility] 2024-03-07 00:00:00 2024-03-07 00:00:00 OFFICE VISIT ESTAB PT LEVEL 4 [facility] [id number] [facility] 2024-03-07 00:00:00 2024-03-07 00:00:00 (TEL) [facility] [id number] [facility] 2024-01-01 00:00:00 2024-01-01 00:00:00 (TEL) [facility] [id number] [facility] 2023-12-01 00:00:00 2023-12-01 00:00:00 OFFICE VISIT ESTAB PT LEVEL 4 STLMLC STLMLC [id number] [facility] 2023-10-30 00:00:00 2023-10-30 00:00:00 (TEL) STLMLC STLMLC [id number] [facility] 2023-10-26 00:00:00 2023-10-26 00:00:00 (TEL) STLMLC STLMLC [id number] [facility] 2023-09-30 00:00:00 2023-09-30 00:00:00 OFFICE VISIT ESTAB PT LEVEL 4 STLMLC STLMLC [id number] [facility] 2023-09-17 00:00:00 2023-09-17 00:00:00 (TEL) STLMLC STLMLC [id number] [facility] 2023-09-11 00:00:00 2023-09-11 00:00:00 (TEL) STLMLC STLMLC [id number] [facility] 2023-08-25 00:00:00 2023-08-25 00:00:00 OFFICE VISIT ESTAB PT LEVEL 3 STLMLC STLMLC [id number] [facility] 2023-06-11 00:00:00 2023-06-11 00:00:00 (TEL) STLMLC STLMLC [id number] [facility] 2023-05-21 00:00:00 2023-05-21 00:00:00 OFFICE VISIT ESTAB PT LEVEL 3 STLMLC STLMLC [id number] [facility] 2023-02-11 00:00:00 2023-02-11 00:00:00 OFFICE VISIT ESTAB PT LEVEL 4 STLMLC STLMLC [id number] [facility] 2023-02-09 00:00:00 2023-02-09 00:00:00 (TEL) STLMLC STLMLC [id number] [facility] 2022-12-25 00:00:00 2022-12-25 00:00:00 (TEL) STLMLC STLMLC [id number] [facility] 2022-12-16 00:00:00 2022-12-16 00:00:00 (TEL) STLMLC STLMLC [id number] [facility] 2022-10-21 00:00:00 2022-10-21 00:00:00 (TEL) STLMLC STLMLC [id number] [facility] 2022-10-13 00:00:00 2022-10-13 00:00:00 (TEL) STLMLC STLMLC [id number] [facility] 2022-09-30 00:00:00 2022-09-30 00:00:00 (NV) Nurse Visit STLMLC STLMLC [id number] [facility] 2022-09-17 00:00:00 2022-09-17 00:00:00 (TEL) STLMLC STLMLC [id number] [facility] 2022-09-15 00:00:00 2022-09-15 00:00:00 OFFICE VISIT ESTAB PT LEVEL 4 STLMLC STLMLC [id number] [facility] 2022-09-15 00:00:00 2022-09-15 00:00:00 INIT ANNUAL MCR WELLNESS VISIT STLMLC STLMLC [id number] [facility] 2022-09-10 00:00:00 2022-09-10 00:00:00 (TEL) STLMLC STLMLC [id number] [facility] 2022-09-03 00:00:00 2022-09-03 00:00:00 OFFICE VISIT EST PT LEVEL 3 STLMLC STLMLC [id number] [facility] 2022-07-29 00:00:00 2022-07-29 00:00:00 (TEL) STLMLC STLMLC [id number] [facility] 2022-07-22 00:00:00 2022-07-22 00:00:00 (NV) Nurse Visit STLMLC STLMLC [id number] [facility] 2022-07-15 00:00:00 2022-07-15 00:00:00 (NV) Nurse Visit STLMLC STLMLC [id number] [facility] 2022-07-09 00:00:00 2022-07-09 00:00:00 (TEL) STLMLC STLMLC [id number] [facility] 2022-07-08 00:00:00 2022-07-08 00:00:00 (NV) Nurse Visit STLMLC STLMLC [id number] [facility] 2022-07-01 00:00:00 2022-07-01 00:00:00 (TEL) STLMLC STLMLC [id number] [facility] 2022-07-01 00:00:00 2022-07-01 00:00:00 (NV) Nurse Visit STLMLC STLMLC [id number] [facility] 2022-06-26 00:00:00 2022-06-26 00:00:00 (TEL) STLMLC STLMLC [id number] [facility] 2022-06-25 00:00:00 2022-06-25 00:00:00 (TEL) STLMLC STLMLC [id number] [facility] 2022-06-24 00:00:00 2022-06-24 00:00:00 (NV) Nurse Visit STLMLC STLMLC [id number] [facility] 2022-06-17 00:00:00 2022-06-17 00:00:00 (NV) Nurse Visit STLMLC STLMLC [id number] [facility] 2022-06-16 00:00:00 2022-06-16 00:00:00 OFFICE VISIT ESTAB PT LEVEL 4 STLMLC STLMLC [id number] [facility] 2022-06-10 00:00:00 2022-06-10 00:00:00 (NV) Nurse Visit STLMLC STLMLC [id number] [facility] 2022-06-03 00:00:00 2022-06-03 00:00:00 (NV) Nurse Visit STLMLC STLMLC [id number] [facility] 2022-05-27 00:00:00 2022-05-27 00:00:00 (NV) Nurse Visit STLMLC STLMLC [id number] [facility] 2022-05-20 00:00:00 2022-05-20 00:00:00 (NV) Nurse Visit STLMLC STLMLC [id number] [facility] 2022-05-13 00:00:00 2022-05-13 00:00:00 (NV) Nurse Visit STLMLC STLMLC [id number] [facility] 2022-05-06 00:00:00 2022-05-06 00:00:00 (NV) Nurse Visit STLMLC STLMLC [id number] [facility] 2022-04-21 00:00:00 2022-04-21 00:00:00 ambulatory STLMLC STLMLC [id number] [facility] 2022-03-31 00:00:00 2022-03-31 00:00:00 ambulatory STLMLC STLMLC [id number] [facility] 2022-03-20 00:00:00 2022-03-20 00:00:00 ambulatory STLMLC STLMLC [id number] [facility] 2022-03-17 00:00:00 2022-03-17 00:00:00 ambulatory STLMLC STLMLC [id number] [facility] 2022-03-14 00:00:00 2022-03-14 00:00:00 ambulatory STLMLC STLMLC [id number] [facility] 2022-03-13 00:00:00 2022-03-13 00:00:00 ambulatory STLMLC STLMLC [id number] [facility] 2022-03-11 00:00:00 2022-03-11 00:00:00 ambulatory STLMLC STLMLC [id number] [facility] 2022-03-06 00:00:00 2022-03-06 00:00:00 ambulatory STLMLC STLMLC [id number] [facility] 2022-02-26 00:00:00 2022-02-26 00:00:00 ambulatory STLMLC STLMLC [id number] [facility] 2022-02-07 00:00:00 2022-02-07 00:00:00 ambulatory STLMLC STLMLC [id number] [facility] 2021-12-20 00:00:00 2021-12-20 00:00:00 ambulatory STLMLC STLMLC [id number] [facility] 2021-11-12 00:00:00 2021-11-12 00:00:00 ambulatory STLMLC STLMLC [id number] [facility] 2021-10-16 00:00:00 2021-10-16 00:00:00 ambulatory STLMLC STLMLC [id number] [facility] 2021-07-31 00:00:00 2021-07-31 00:00:00 ambulatory STLMLC STLMLC [id number] [facility] 2021-07-24 00:00:00 2021-07-24 00:00:00 (TEL) STLMLC STLMLC [id number] [facility] 2021-07-18 00:00:00 2021-07-18 00:00:00 OFFICE VISIT EST PT LEVEL 3 STLMLC STLMLC [id number] [facility] Results Test Description Test Time Test Comments Results Result Co mments Source
[2024-07-29] MEDS ORDERED: DIPHENHYDRAMINE 50 MG/ML VIAL ONE (23:34)
[2024-07-29] MEDS ORDERED: FAMOTIDINE 20 MG/2 ML VIAL IV ONE (23:34)
[2024-07-29] MEDS ORDERED: IPRATROPIUM BROM 0.5MG/2.5ML ONE (23:34)
[2024-07-29] MEDS ORDERED: METHYLPREDNISOLONE 125 MG INJ ONE (23:34)
[2024-07-29] MEDS ORDERED: ALBUTEROL 2.5 MG/3 ML NEB SOL ONE (23:34)
[2024-07-29] MEDS ORDERED: NA CHLORIDE 0.9% 1,000 ML ONE (23:35)
[2024-07-29] MEDS ORDERED: TRANEXAMIC ACID 1,000 MG/10 ML VIAL IV ONE (23:35)
[2024-07-29] MEDS ORDERED: NA CHLORIDE 0.9% 100 ML ONE (23:39)
[2024-07-30 00:01] LABS: PT Prothrombin Time 10.1 SECONDS (9.4-12.5); Protime INR 0.9
[2024-07-30 00:03] LABS: Absolute Basophils 0.1 K/uL (0-0.5); Absolute Eosinophils 0.2 K/uL (0-0.5); Absolute Lymphocytes (CBC) 1.9 K/uL (0.7-4.9); Absolute Monocytes 0.8 K/uL (0.1-1.3); Absolute Neutrophil 7.3 K/uL (1.8-8.0); Basophils % 0.9 % (0-1.3); Eosinophils % 1.7 % (0-4.4); Hematocrit 42.9 % (39.6-49.0); Hemoglobin 14.2 g/dL (13.6-17.9); Lymphocytes % 18.1 % (15.3-44.8); MCH 28.7 pg (27.0-35.0); MCHC 33.1 g/dL (32.0-36.0); MCV 86.7 fL (80-100); MPV 9.4 fL (7.6-11.3); Monocytes % 8.1 % (3.3-12.3); Neutrophils % 71.2 % (41.7-73.7); Platelets 241 thou/uL (152-406); RBC Red Blood Cell Count 4.94 M/uL (4.33-5.43); Red Cell Distribution Width 14.6 % (12.1-15.2)
[2024-07-30 00:22] LABS: ALT/SGPT 38 U/L (16-61); Albumin 3.6 g/dL (3.4-5.0); Albumin/Globulin Ratio 1.1 (1.1-1.8); Alkaline Phosphatase 81 U/L (45-117); Anion Gap 11.1 mEq/L (5.0-15.0); BUN Blood Urea Nitrogen 10 mg/dL (7-18); Bicarbonate 28 mEq/L (21-32); Bilirubin Total 0.2 mg/dL (0.2-1.0); Globulin 3.4 g/dL (2.3-3.5); Glomerular Filtration Rate 72 ml/min (=/>90); Glucose Level 333 mg/dL (74-106); NT PRO-BNP 31 pg/mL (<125); Sodium Level 135 mEq/L (136-145); Troponin High Sensitivity 13.9 pg/mL (<58.9)
[2024-07-30 00:23] LABS: AST/SGOT 21 U/L (15-37); Bilirubin Direct < 0.2 mg/dL (0-0.2); Magnesium 2.1 mg/dL (1.6-2.4); Potassium 4.1 mEq/L (3.5-5.1)
[2024-07-30] MEDS ORDERED: EPINEPHrine 1 MG/10 ML SYR ONE (00:35)
[2024-07-30] MEDS ORDERED: EPINEPHRINE 1 MG/ML VIAL ONE (00:39)
--- NOTE | 2024-07-30 00:47 | RAD REPORT ---
CLINICAL HISTORY: Angioedema. COMPARISON: None. TECHNIQUE: XR CHEST 1 VIEW 07/29/2024 11:14 PM [employer] FINDINGS: Cardiac silhouette is normal in size. Lungs are clear without consolidation, atelectasis, mass or josh ma. There is no pleural effusion. There is no pneumothorax. There are no acute osseous findings. IMPRESSION: Clear lungs. Electronically signed by: Jean Dumas MD 07/30/2024 12:39 AM [employer] RP Due to temporary technical issues with the PACS/FlowCo reporting system, reports are being cat d by the in-house radiologist without review as a courtesy to ensure prompt reporting the interpreting radiologist is fully responsible for the content of the report. Transcribed Date/Time: 07/30/2024 12:47 AM
[2024-07-30] MEDS ORDERED: DIPHENHYDRAMINE 50 MG/ML VIAL ONE (02:26)
[2024-07-30] MEDS ORDERED: METHYLPREDNISOLONE 125 MG INJ ONE (02:26)
--- NOTE | 2024-07-30 05:25 | ER ---
Nurse's Notes [facility] Name: Neftali Gill Jr Age: 69 yrs Sex: Male : 1955 Arrival Date: 07/29/2024 Time: 23:02 Bed 3 Private MD: Diagnosis: Acute angioedema of tongue, Acute Tongue swelling Presentation: 07/29 23:11 Chief complaint: Patient states: tongue started swelling about 20 minutes ago. me1 Coronavirus screen: Vaccine status: Patient reports receiving the 2nd dose of the covid vaccine. Ebola Screen: No symptoms or risks identified at this time. Risk Assessment: Do you want to hurt yourself or someone else? Patient reports no desire to harm self or others. Onset of symptoms was July 29, 2024 at 22:50. 23:11 Method Of Arrival: Ambulatory me1 23:11 Acuity: DUNCAN 2 me1 Historical: - Allergies: 23:29 ACES; me1 23:29 Cephalexin; me1 23:29 Diovan; me1 23:29 Lisinopril; me1 23:29 nebivolol HCl; me1 23:29 NSAIDS; me1 23:29 valsartan; me1 - PMHx: 23:29 ANGIOEDEMA; High Cholesterol; GERD; Hypertension; NIDDM; me1 - PSHx: 23:29 Cholecystectomy; TURP; me1 - Immunization history:: Adult Immunizations up to date. - Infectious Disease History:: Denies. - Social history:: Smoking status: Patient reports the use of cigarette tobacco products, smokes one-half pack cigarettes per day. - Family history:: not pertinent. Screenin:50 [facility] ED Fall Risk Assessment (Adult) History of falling in the last 3 months, dd2 including since admission No falls in past 3 months (0 pts) Confusion or Disorientation No (0 pts) Intoxicated or Sedated No (0 pts) Impaired Gait No (0 pts) Mobility Assist Device Used No (0 pt) Altered Elimination No (0 pt) Score/Fall Risk Level 0 - 2 = Low Risk Oriented to surroundings, Maintained a safe environment, Educated pt \T\ family on fall prevention, incl call for assistance when getting out of bed, Assessed \T\ reinforced patient's understanding of fall precautions, Hourly rounding (assess needs \T\ fall precautionary measures) done. Abuse screen: Denies threats or abuse. Nutritional screening: No deficits noted. Tuberculosis screening: No symptoms or risk factors identified. Assessment: 23:50 General: Appears uncomfortable, Behavior is cooperative, appropriate for age, anxious. dd2 Pain: Denies pain. Neuro: Level of Consciousness is awake, alert, obeys commands, Oriented to person, place, time, situation, Appropriate for age. Cardiovascular: No deficits noted. Patient's skin is warm and dry. Respiratory: Airway is patent Respiratory effort is even, unlabored, Respiratory pattern is regular, symmetrical, ANGIOEDEMA PRESENT. NO TONGUE PROTRUSION NOTED AT PRESENT. RESPIRATIONS UNLABORED AT THIS TIME. Breath sounds are clear bilaterally. GI: No deficits noted. No signs and/or symptoms were reported involving the gastrointestinal system. : No deficits noted. No signs and/or symptoms were reported regarding the genitourinary system. EENT: TONGUE EDEMA NOTED. Derm: No deficits noted. No signs and/or symptoms reported regarding the dermatologic system. Musculoskeletal: No deficits noted. No signs and/or symptoms reported regarding the musculoskeletal system. Circulation, motion, and sensation intact. Range of motion: intact in all extremities. 07/30 01:45 Reassessment: IMPROVEMENT IN TONGUE EDEMA NOTED. SPEECH CLEARER. MD AWARE Patient dd2 denies pain at this time. Patient states feeling better. Vital Signs: 07/29 23:11 Weight 92.99 kg; Height 6 ft. 0 in. ; me1 23:50 BP 173 / 76; Pulse 71; Resp 22; Temp 98.4; Pulse Ox 98% on R/A; dd2 07/30 00:15 BP 158 / 71; Pulse 76; Resp 18; Pulse Ox 96% on R/A; dd2 00:45 BP 173 / 55; Pulse 84; Resp 18; Pulse Ox 97% on R/A; dd2 01:15 BP 168 / 50; Pulse 95; Resp 17; Pulse Ox 96% on R/A; dd2 01:45 BP 151 / 56; Pulse 92; Resp 17; Pulse Ox 97% ; dd2 02:15 BP 151 / 66; Pulse 96; Resp 16; Pulse Ox 95% on R/A; dd2 02:45 BP 168 / 66; Pulse 88; Resp 16; Pulse Ox 96% on R/A; dd2 03:15 BP 166 / 75; Pulse 87; Resp 16; Pulse Ox 97% on R/A; dd2 04:00 BP 166 / 76; Pulse 84; Resp 17; Pulse Ox 97% on R/A; dd2 04:30 BP 165 / 82; Pulse 79; Resp 16; Pulse Ox 96% on R/A; dd2 05:43 BP 158 / 74; Pulse 77; Resp 16; Temp 98.3; Pulse Ox 97% on R/A; dd2 07/29 23:11 Body Mass Index 27.80 (92.99 kg, 182.88 cm) me1 [place] Coma Score: 07/29 23:50 Eye Response: spontaneous(4). Motor Response: obeys commands(6). Verbal Response: dd2 oriented(5). Total: 15. 07/30 20:48 Eye Response: spontaneous(4). Motor Response: obeys commands(6). Verbal Response: sp4 oriented(5). Total: 15. ED Course: 07/29 00:32 Patient has correct armband on for positive identification. Bed in low position. Call dd2 light in reach. Side rails up X2. Provided Education on: CALL LIGHT, MEDICATIONS, SIDE EFFECCTS. Client placed on continuous cardiac and pulse oximetry monitoring. NIBP monitoring applied. case monitor on. Door closed. Noise minimized. Warm blanket given. Pillow given. Verbal reassurance given. 00:32 No provider procedures requiring assistance completed. dd2 23:05 Patient arrived in ED. jj6 23:10 Clint Galindo MD is Attending Physician. sp4 23:29 Triage completed. me1 23:29 Arm band placed on Patient placed in an exam room. me1 23:31 SHANAE MULLER, RN is Primary Nurse. dd2 23:38 XRAY Chest (1 view) In Process Unspecified. EDMS 23:50 Initial Neb Treatment Given as ordered Patient was instructed and evaluated on dd2 procedure. 23:51 Inserted saline lock: 22 gauge in right upper arm, using aseptic technique. Blood dd2 collected. Flushed with 10 mL NS. 23:51 Initial lab(s) drawn, by me, sent to lab. dd2 23:56 Patient maintains SpO2 saturation greater than 95% on room air. dd2 23:59 EKG done, by ED staff. vk 07/30 05:44 IV discontinued, intact, bleeding controlled, No redness/swelling at site. Pressure dd2 dressing applied. Administered Medications: 07/29 23:46 Drug: diphenhydrAMINE IVP 50 mg IVP once Route: IVP; Site: right upper arm; al5 07/30 00:01 Follow up: Response: No adverse reaction dd2 07/29 23:46 Drug: Famotidine IVP 20 mg IVP once; dilute with 10 mL 0.9% NaCl; give over 2 minutes al5 Route: IVP; Site: right upper arm; 07/30 00:01 Follow up: Response: No adverse reaction dd2 07/29 23:46 Drug: tranexamic acid 1000 mg IV at calculated rate once; administer at a rate not to al5 exceed 100 mg per min Route: IV; Rate: calculated rate; Site: right upper arm; 07/30 00:01 Follow up: Response: No adverse reaction dd2 00:10 Follow up: IV Status: Completed infusion; IV Intake: 100ml dd2 07/29 23:46 Drug: Albuterol Inhalation 2.5 mg Inhalation once Route: Inhalation; al5 23:46 Drug: Ipratropium Inhalation Aerosol 0.5 mg Inhalation once Route: Inhalation; al5 23:47 Drug: MethylPrednisoLONE IVP 125 mg IVP once Route: IVP; Site: right upper arm; al5 07/30 00:02 Follow up: Response: No adverse reaction dd2 07/29 23:47 Drug: NS 0.9% IV 1000 ml IV at 1 bolus Per protocol; to be given as a bolus over 60 al5 minutes Route: IV; Rate: 1 bolus; Site: right upper arm; 07/30 00:02 Follow up: Response: No adverse reaction dd2 00:47 Follow up: IV Status: Completed infusion; IV Intake: 1000ml dd2 00:46 Drug: EPINEPHrine 1:1000 Sub-Q 1:1,000 0.01 mg/kg Sub-Q once Route: Sub-Q; Site: right dd2 upper arm; 01:02 Follow up: Response: No adverse reaction dd2 02:32 Drug: MethylPrednisoLONE IVP 60 mg IVP once Route: IVP; Site: right upper arm; dd2 02:47 Follow up: Response: No adverse reaction dd2 02:32 Drug: diphenhydrAMINE IVP 25 mg IVP once Route: IVP; Site: right upper arm; dd2 02:47 Follow up: Response: No adverse reaction dd2 Medication: 07/29 23:50 VIS not applicable for this client. dd2 Intake: 07/30 00:10 IV: 100ml; Total: 100ml. dd2 00:47 IV: 1000ml; Total: 1100ml. dd2 Outcome: 05:25 Discharge ordered by . sp4 05:44 Discharged to home ambulatory, dd2 05:44 Condition: improved 05:44 Discharge instructions given to patient, Instructed on discharge instructions, follow up and referral plans. medication usage, Demonstrated understanding of instructions, follow-up care, medications, Prescriptions given X 2, 05:45 Patient left the ED. dd2 Signatures: Dispatcher [employer] EDOlesya [id number] Clint Galindo MD MD sp4 Brooke Juarez, RN RN me1 Marilee Gallo Amanda, RN RN al5 SHANAE MULLER RN RN dd2 Corrections: (The following items were deleted from the chart) 07/29 23:51 23:51 [facility] ED Fall Risk Assessment (Adult) dd2 dd2
--- NOTE | 2024-07-30 05:25 | EDPHYS ---
Physician Documentation [facility] Name: Neftali Gill Jr Age: 69 yrs Sex: Male : 1955 Arrival Date: 07/29/2024 Time: 23:02 Bed 3 Private MD: ED Physician Clint Galindo HPI: 07/29 23:10 This 69 yrs old Black Male presents to ER via Unassigned with complaints of Difficulty sp4 Swallowing, SWOLLEN TONGUE. 07/30 20:48 69-year-old male presents with acute tongue swelling that is recurrent. Patient was sp4 managed in the hospital for the same 02/13/2024 with recurrent tongue angioedema which has responded to epinephrine, normal saline, Solu-Medrol, Decadron, famotidine, diphenhydramine, albuterol, and tranexamic acid. Patient denied at this time sensation of throat closure. Reports moderate tongue swelling and difficulty speaking.. Historical: - Allergies: 07/29 23:29 ACES; me1 23:29 Cephalexin; me1 23:29 Diovan; me1 23:29 Lisinopril; me1 23:29 nebivolol HCl; me1 23:29 NSAIDS; me1 23:29 valsartan; me1 - PMHx: 23:29 ANGIOEDEMA; High Cholesterol; GERD; Hypertension; NIDDM; me1 - PSHx: 23:29 Cholecystectomy; TURP; me1 - Immunization history:: Adult Immunizations up to date. - Infectious Disease History:: Denies. - Social history:: Smoking status: Patient reports the use of cigarette tobacco products, smokes one-half pack cigarettes per day. - Family history:: not pertinent. ROS: 07/30 20:48 Constitutional: Negative for fever, chills, and weight loss, positive for acute tongue sp4 swelling All other systems are negative, Exam: 20:48 Constitutional: This is a well developed, well nourished patient who is awake, alert, sp4 and in no acute distress. Head/Face: Normocephalic, atraumatic. Eyes: Pupils equal round and reactive to light, extra-ocular motions intact. Lids and lashes normal. Conjunctiva and sclera are not injected. Cornea within normal limits. Periorbital areas with no swelling, redness, or edema. ENT: Nares patent. No nasal discharge, no septal abnormalities noted. Tympanic membranes are normal and external auditory canals are clear. Oropharynx with no redness, swelling, or masses, exudates, or evidence of obstruction, uvula midline. Mucous membranes moist. Positive for Significant tongue swelling. Neck: Trachea midline, no thyromegaly or masses palpated, and no cervical lymphadenopathy. Supple, full range of motion without nuchal rigidity, or vertebral point tenderness. Chest/axilla: Normal chest wall appearance and motion. Nontender with no deformity. No lesions are appreciated. Cardiovascular: Regular rate and rhythm with a normal S1 and S2. No gallops, murmurs, or rubs. Normal PMI, no JVD. No pulse deficits. Respiratory: Lungs have equal breath sounds bilaterally, clear to auscultation and percussion. No rales, rhonchi or wheezes noted. No increased work of breathing, no retractions or nasal flaring. Abdomen/GI: Soft, with normal bowel sounds. No distension or tympany. No guarding or rebound. No evidence of tenderness throughout. Back: No spinal tenderness. No costovertebral tenderness. Skin: Warm, dry with normal turgor. Normal color with no rashes, no lesions, and no evidence of cellulitis. MS/ Extremity: Pulses equal, no cyanosis. Neurovascular intact. Full, normal range of motion. Neuro: Awake and alert, GCS 15, oriented to person, place, time, and situation. Cranial nerves II-XII grossly intact. Motor strength 5/5 in all extremities. Sensory grossly intact. Psych: Awake, alert, with orientation to person, place and time. Behavior, mood, and affect are within normal limits 20:48 ECG was reviewed by the Attending Physician. EKG 2356 normal sinus rhythm rate of 71 Vital Signs: 07/29 23:11 Weight 92.99 kg; Height 6 ft. 0 in. ; me1 23:50 BP 173 / 76; Pulse 71; Resp 22; Temp 98.4; Pulse Ox 98% on R/A; dd2 07/30 00:15 BP 158 / 71; Pulse 76; Resp 18; Pulse Ox 96% on R/A; dd2 00:45 BP 173 / 55; Pulse 84; Resp 18; Pulse Ox 97% on R/A; dd2 01:15 BP 168 / 50; Pulse 95; Resp 17; Pulse Ox 96% on R/A; dd2 01:45 BP 151 / 56; Pulse 92; Resp 17; Pulse Ox 97% ; dd2 02:15 BP 151 / 66; Pulse 96; Resp 16; Pulse Ox 95% on R/A; dd2 02:45 BP 168 / 66; Pulse 88; Resp 16; Pulse Ox 96% on R/A; dd2 03:15 BP 166 / 75; Pulse 87; Resp 16; Pulse Ox 97% on R/A; dd2 04:00 BP 166 / 76; Pulse 84; Resp 17; Pulse Ox 97% on R/A; dd2 04:30 BP 165 / 82; Pulse 79; Resp 16; Pulse Ox 96% on R/A; dd2 05:43 BP 158 / 74; Pulse 77; Resp 16; Temp 98.3; Pulse Ox 97% on R/A; dd2 07/29 23:11 Body Mass Index 27.80 (92.99 kg, 182.88 cm) me1 Sudhir Coma Score: 07/29 23:50 Eye Response: spontaneous(4). Motor Response: obeys commands(6). Verbal Response: dd2 oriented(5). Total: 15. 07/30 20:48 Eye Response: spontaneous(4). Motor Response: obeys commands(6). Verbal Response: sp4 oriented(5). Total: 15. MDM: 07/29 23:14 Medical Screening Exam initiated sp4 07/30 05:04 ED course: CLINICAL HISTORY: Angioedema. COMPARISON: None. TECHNIQUE: XR CHEST 1 VIEW sp4 07/29/2024 11:14 PM AIR SAMPLER FINDINGS: Cardiac silhouette is normal in size. Lungs are clear without consolidation, atelectasis, mass or edema. There is no pleural effusion. There is no pneumothorax. There are no acute osseous findings. IMPRESSION: Clear lungs. Electronically signed by: Jean Dumas MD 07/30/2024 12:39 AM. 20:52 Differential diagnosis: Allergic rhinitis, apthous stomatitis, apthous ulcer, sp4 bronchitis, chemical burn, chemotherapy. Data reviewed: vital signs, nurses notes, old medical records, lab test result(s), EKG, radiologic studies, plain films. Consideration of Admission/Observation Escalation of care including admission/observation considered. ED course: After monitoring in the emergency department patient has improved and the tongue swelling has decreased to some extent. Patient was offered admission for monitoring and also transfer to different facility for monitoring. Patient declined and states he is ready to go home. Patient was prescribed prednisone for the next 5 days. Patient was informed that he needs to return immediately in case tongue swelling gets any worse.. Also Return for any other medical concerns.. 07/29 23:14 Order name: Basic Metabolic Panel; Complete Time: sp4 07/29 23:14 Order name: CBC with Diff; Complete Time: sp4 07/29 23:14 Order name: LFT's; Complete Time: sp4 07/29 23:14 Order name: Magnesium; Complete Time: sp4 07/29 23:14 Order name: NT PRO-BNP; Complete Time: sp4 07/29 23:14 Order name: PT-INR; Complete Time: sp4 07/29 23:14 Order name: Troponin HS; Complete Time: sp4 07/29 23:14 Order name: XRAY Chest (1 view) sp4 07/29 23:13 Order name: Saline Lock; Complete Time: 23:46 sp4 07/29 23:14 Order name: Cardiac monitoring; Complete Time: 23:46 sp4 07/29 23:14 Order name: EKG - Nurse/Tech; Complete Time: 23:59 sp4 07/29 23:14 Order name: IV Saline Lock; Complete Time: 23:46 sp4 07/29 23:14 Order name: Labs collected and sent; Complete Time: 23:46 sp4 07/29 23:14 Order name: O2 Per Protocol; Complete Time: 23:46 sp4 07/29 23:14 Order name: O2 Sat Monitoring; Complete Time: 23:46 sp4 EC/20 23:56 Rate is 71 beats/min. Rhythm is regular, Normal Sinus Rhythm. QRS [place] is Normal. MT sp4 interval is normal. QRS interval is normal. QT interval is normal. No Q waves. T waves are Normal. No ST changes noted. Clinical impression: No evidence of ischemia. Interpreted by me. Reviewed by me. Administered Medications: 23:46 Drug: diphenhydrAMINE IVP 50 mg IVP once Route: IVP; Site: right upper arm; al5 07/30 00:01 Follow up: Response: No adverse reaction dd2 07/29 23:46 Drug: Famotidine IVP 20 mg IVP once; dilute with 10 mL 0.9% NaCl; give over 2 minutes al5 Route: IVP; Site: right upper arm; 07/30 00:01 Follow up: Response: No adverse reaction dd2 07/29 23:46 Drug: tranexamic acid 1000 mg IV at calculated rate once; administer at a rate not to al5 exceed 100 mg per min Route: IV; Rate: calculated rate; Site: right upper arm; 07/30 00:01 Follow up: Response: No adverse reaction dd2 00:10 Follow up: IV Status: Completed infusion; IV Intake: 100ml dd2 07/29 23:46 Drug: Albuterol Inhalation 2.5 mg Inhalation once Route: Inhalation; al5 23:46 Drug: Ipratropium Inhalation Aerosol 0.5 mg Inhalation once Route: Inhalation; al5 23:47 Drug: MethylPrednisoLONE IVP 125 mg IVP once Route: IVP; Site: right upper arm; al5 07/30 00:02 Follow up: Response: No adverse reaction dd2 07/29 23:47 Drug: NS 0.9% IV 1000 ml IV at 1 bolus Per protocol; to be given as a bolus over 60 al5 minutes Route: IV; Rate: 1 bolus; Site: right upper arm; 07/30 00:02 Follow up: Response: No adverse reaction dd2 00:47 Follow up: IV Status: Completed infusion; IV Intake: 1000ml dd2 00:46 Drug: EPINEPHrine 1:1000 Sub-Q 1:1,000 0.01 mg/kg Sub-Q once Route: Sub-Q; Site: right dd upper arm; 01:02 Follow up: Response: No adverse reaction dd2 02:32 Drug: MethylPrednisoLONE IVP 60 mg IVP once Route: IVP; Site: right upper arm; dd2 02:47 Follow up: Response: No adverse reaction dd2 02:32 Drug: diphenhydrAMINE IVP 25 mg IVP once Route: IVP; Site: right upper arm; dd2 02:47 Follow up: Response: No adverse reaction dd2 Disposition Summary: 07/30/24 05:25 Discharge Ordered Notes: Location: Home sp4 Problem: new sp4 Symptoms: have improved sp4 Condition: Stable sp4 Diagnosis - Acute angioedema of tongue, Acute Tongue swelling sp4 Followup: sp4 - With: Private Physician - When: 7 - 10 days - Reason: Recheck today's complaints Discharge Instructions: - Discharge Summary Sheet sp4 - Angioedema, [id number] sp4 Forms: - Patient Portal Instructions sp4 Prescriptions: - Benadryl 25 mg Oral capsule - take 2 capsule ORAL route every 8 hours for 5 days PRN swelling; 30 tablet; sp4 Refills: 0, Product Selection Permitted - Prednisone 20 mg Oral Tablet - take 2 tablets ORAL route once daily for 5 days; 10 tablet; Refills: 0, Product sp4 Selection Permitted Signatures: Dispatcher [employer] EDClint Bernard MD MD sp4 Brooke Juarez, RN RN me1 Alfreda Bentley RN RN al5 SHANAE MULLER RN RN dd2 Corrections: (The following items were deleted from the chart) 07/29 23:14 23:14 BASIC METABOLIC PANEL+C.LAB.BRZ ordered. EDMS EDMS 23:14 23:14 CBC+H.LAB.BRZ ordered. EDMS EDMS 23:14 23:14 HEPATIC FUNCTION+C.LAB.BRZ ordered. EDMS EDMS 23:14 23:14 MAGNESIUM+C.LAB.BRZ ordered. EDMS EDMS 23:14 23:14 PROBNP+C.LAB.BRZ ordered. EDMS EDMS 23:14 23:14 PROTIME (+INR)+COAG.LAB.BRZ ordered. EDMS EDMS 23:14 23:14 Troponin High Sensitivity+C.LAB.BRZ ordered. EDMS EDMS 23:14 23:14 Chest Single View+RAD.RAD.BRZ ordered. EDMS EDMS
[2024-07-30 06:07] VITALS: BP 158/74; TEMP 98.3; O2SAT 97
--- NOTE | 2024-08-01 11:10 | EKG ---
Test Date: 2024-07-29 Test Time: 23:56:25 Rotary Drier: IVORY MEASUREMENT RESULTS: Intervals: Rate: 71 WI: 152 QRSD: 88 QT: 404 QTc: 439 [place]: P: 62 WI: 152 QRS: -20 T: 38 INTERPRETIVE STATEMENTS: Normal sinus rhythm Possible Left atrial enlargement Borderline ECG Compared to ECG 02/13/2024 04:40:54 ST (T wave) deviation no longer present Prolonged QT interval no longer present Electronically Signed On 08-01-24 11:07:33 PARAFFIN MACHINE OPERATOR by James Estrada
== END 2024-07-30 05:45 | disposition home or self-care (01) ==
LOC: ER 23:02
DX: T78.3XXA Angioneurotic edema, initial encounter (principal)
CPT/HCPCS: 96365; 96361; 93005; 85025; 80048; 36415; 83735; 85610; 80076; 84484; 83880; 71045; 94640; 96375; 96372; 99285; J1200 ×2; J7613; J7644; J0171; J2919 ×2; J7030

== ENCOUNTER 2024-08-29 13:53 | Emergency (ER) | payer OTHER ==
--- OUTSIDE RECORDS SUMMARY | 2024-08-29 13:57 | XMS REPORT | Continuity of Care Document ---
Author Name Unknown Address [address] [facility] [address] [place] [address] [facility] thconnect Address [address] [facility] [place] [address] Care Team Providers Care Make Up Editor Name Role Phone Mary Alberto Attending Clinician Unavailable Payers Payer Name Policy Type Policy Number Effective Date Expirati on Date Source [facility] 111 [id number] 2022 00:00:00 [facility] Problems Condition Name Condition Details Condition Category Status Onset Date Resolution Date Last Treatment Date Treating Clinician Comments Source [id number] Detrusor instabilit y Problem [facility] [id number] Urge incontinen ce Problem [facility] [id number] BMI 28.0-28.9, adult Problem [facility] [id number] Diarrhea, functional Problem [facility] 4211310 Primary insomnia Problem [facility] [id number] Lumbar back pain with radiculopa thy affecting lower extremity Problem [facility] [id number] Disorder of urinary system, unspecifie d Problem Common [facility] Frequency Frequency Problem Comm on [facility] Comprehens ladi eye examinatio n (procedure ) Routine eye exam Problem [facility] [id number] Right upper quadrant abdominal pain Problem [facility] Seasonal allergic rhinitis Seasonal allergic reaction Problem [facility] Peripheral neuropathy Peripheral neuropathy Problem [facility] Disturbanc e of skin sensation Disturbanc e of skin sensation Problem [facility]pert[facility] on Hypertensi on Problem [facility] [id number] Wound of skin Problem [facility] [id number] S/P TURP (status post transureth ral resection of prostate) Problem [facility] 42021108 Dysuria Problem [facility] [id number] Type 2 diabetes mellitus with other diabetic kidney complicati on Problem [facility] [id number] Other postherpet ic nervous system involvemen t Problem [facility] [id number] Hospital discharge follow-up Problem [facility] 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 Problem [facility] 71805255 Diarrhea of presumed infectious origin Problem [facility] [id number] Acquired anal stenosis Problem [facility] [id number] Lower urinary tract symptoms (LUTS) Problem [facility] [id number] BPH loc w urin obs/LUTS Problem [facility] Benign prostatic hyperplasi a BPH (benign prostatic hyperplasi a) Problem [facility] 23135494 Prostatiti s, acute Problem [facility] [id number] ED (erectile dysfunctio n) of organic origin Problem [facility] [id number] 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 Problem [facility] Overactive bladder Overactive bladder Problem [facility] Impotence of organic origin ED (erectile dysfunctio n) Problem [facility] [id number] 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 Problem [facility] [id number] Type 2 diabetes mellitus with foot ulcer Problem [facility] 607122501 Gastroesop hageal reflux disease without esophagiti s Problem [facility] 32470104 Urethritis Problem [facility] [id number] Incomplete emptying of bladder Problem [facility] Allergies, Adverse Reactions, Alerts Allergy Name Allergy Type Status Severity Reaction(s) Onset Date Inactive Date Treating Clinician Comments Source lisinopr il lisinopr il Active angioedema [facility] valsarta n valsarta n Active angioedema [facility] 6335 Drug allergy Active Unknown [facility] cephalex in cephalex in Active shock [facility] carvedil ol carvedil ol Active Unknown [facility] Social History Social Habit Start Date Stop Date Quantity Comments Source History of Tobacco Use Current Smoker [facility] Sex Assigned At [facility] Smoking Status Start Date Stop Date Source Current Smoker 2024-06-20 00:00:00 [facility] Never Smoker [facility] Medications Ordered Medication Name Filled Medication Name Start Date Stop Date Current Medication? Ordering Clinician Indication Dosage Frequency Signature (SIG) Comments Components Source Pregabalin 225 MG Pregabalin 225 MG 2023-08 0-29 00:00: 00 No 1{capsu le} BID Pregabalin 225 MG Nystatin 232758 UNIT/ML Nystatin 129040 UNIT/ML 4-23 00:00: 00 No 4{ml} QID Nystatin 740939 UNIT/ML Doxycycline Hyclate 100 MG Doxycycline Hyclate [...] vial Flucelvax - multidose vial 2021-07-31 17:04:00 [facility] Flucelvax - multidose vial Flucelvax - multidose vial 2021-07-31 17:04:00 [facility] Flucelvax - multidose vial Flucelvax - multidose vial 2021-07-31 17:04:00 Completed [facility] Flucelvax - multidose vial Flucelvax - multidose vial 2021-07-31 17:04:00 Completed [facility] Flucelvax - multidose vial Flucelvax - multidose vial 2021-07-31 17:04:00 Completed [facility] Flucelvax - multidose vial Flucelvax - multidose vial 2021-07-31 17:04:00 Completed [facility] Flucelvax - multidose vial Flucelvax - multidose vial 2021-07-31 17:04:00 Completed [facility] Flucelvax - multidose vial Flucelvax - multidose vial 2021-07-31 17:04:00 Completed [facility] Flucelvax - multidose vial Flucelvax - multidose vial 2021-07-31 17:04:00 Completed [facility] Flucelvax - multidose vial Flucelvax - multidose vial 2021-07-31 17:04:00 Completed [facility] Flucelvax - multidose vial Flucelvax - multidose vial 2021-07-31 17:04:00 Completed [facility] Flucelvax - multidose vial Flucelvax - multidose vial 2021-07-31 17:04:00 Completed [facility] Flucelvax - multidose vial Flucelvax - multidose vial 2021-07-31 17:04:00 Completed [facility] Flucelvax - multidose vial Flucelvax - multidose vial 2021-07-31 17:04:00 Completed [facility] Flucelvax - multidose vial Flucelvax - multidose vial 2021-07-31 17:04:00 Completed [facility] Flucelvax - multidose vial Flucelvax - multidose vial 2021-07-31 17:04:00 Completed [facility] Flucelvax - multidose vial Flucelvax - multidose vial 2021-07-31 17:04:00 Completed [facility] Flucelvax - multidose vial Flucelvax - multidose vial 2021-07-31 17:04:00 Completed [facility] Flucelvax - multidose vial Flucelvax - multidose vial 2021-07-31 17:04:00 Completed [facility] Flucelvax - multidose vial Flucelvax - multidose vial 2021-07-31 17:04:00 Completed [facility] Flucelvax - multidose vial Flucelvax - multidose vial 2021-07-31 17:04:00 Completed [facility] Flucelvax - multidose vial Flucelvax - multidose vial 2021-07-31 17:04:00 Completed [facility] Flucelvax - single dose syringe Flucelvax - single dose syringe 2019-05-05 17:06:00 Completed [facility] Flucelvax - single dose syringe Flucelvax - single dose syringe 2019-05-05 17:06:00 Completed [facility] Flucelvax - single dose syringe Flucelvax - single dose syringe 2019-05-05 17:06:00 Completed [facility] Flucelvax - single dose syringe Flucelvax - single dose syringe 2019-05-05 17:06:00 Completed [facility] Flucelvax - single dose syringe Flucelvax - single dose syringe 2019-05-05 17:06:00 Completed [facility] Flucelvax - single dose syringe Flucelvax - single dose syringe 2019-05-05 17:06:00 Completed [facility] Flucelvax - single dose syringe Flucelvax - single dose syringe 2019-05-05 17:06:00 Completed [facility] Flucelvax - single dose syringe Flucelvax - single dose syringe 2019-05-05 17:06:00 Completed [facility] Flucelvax - single dose syringe Flucelvax - single dose syringe 2019-05-05 17:06:00 Completed [facility] Flucelvax - single dose syringe Flucelvax - single dose syringe 2019-05-05 17:06:00 Completed [facility] Flucelvax - single dose syringe Flucelvax - single dose syringe 2019-05-05 17:06:00 Completed [facility] Flucelvax - single dose syringe Flucelvax - single dose syringe 2019-05-05 17:06:00 Completed [facility] Flucelvax - single dose syringe Flucelvax - single dose syringe 2019-05-05 17:06:00 Completed [facility] Flucelvax - single dose syringe Flucelvax - single dose syringe 2019-05-05 17:06:00 Completed [facility] Flucelvax - single dose syringe Flucelvax - single dose syringe 2019-05-05 17:06:00 Completed [facility] Flucelvax - single dose syringe Flucelvax - single dose syringe 2019-05-05 17:06:00 Completed [facility] Flucelvax - single dose syringe Flucelvax - single dose syringe 2019-05-05 17:06:00 Completed [facility] Flucelvax - single dose syringe Flucelvax - single dose syringe 2019-05-05 17:06:00 Completed [facility] Flucelvax - single dose syringe Flucelvax - single dose syringe 2019-05-05 17:06:00 Completed [facility] Flucelvax - single dose syringe Flucelvax - single dose syringe 2019-05-05 17:06:00 Completed [facility] Flucelvax - single dose syringe Flucelvax - single dose syringe 2019-05-05 17:06:00 Completed [facility] Flucelvax - single dose syringe Flucelvax - single dose syringe 2019-05-05 17:06:00 Completed [facility] Flucelvax - single dose syringe Flucelvax - single dose syringe 2019-05-05 17:06:00 Completed [facility] Flucelvax (ccIIV4) - MDV - 0.5mL Flucelvax (ccIIV4) - MDV - 0.5mL Unknown Completed [facility] Flucelvax (ccIIV4) - SDS - 0.5mL Flucelvax (ccIIV4) - SDS - 0.5mL Unknown Completed [facility] Flucelvax (ccIIV4) - MDV - 0.5mL Flucelvax (ccIIV4) - MDV - 0.5mL Unknown Completed [facility] Flucelvax (ccIIV4) - SDS - 0.5mL Flucelvax (ccIIV4) - SDS - 0.5mL Unknown Completed [facility] Flucelvax (ccIIV4) - MDV - 0.5mL Flucelvax (ccIIV4) - MDV - 0.5mL Unknown Completed [facility] Flucelvax (ccIIV4) - SDS - 0.5mL Flucelvax (ccIIV4) - SDS - 0.5mL Unknown Completed [facility] Flucelvax (ccIIV4) - MDV - 0.5mL Flucelvax (ccIIV4) - MDV - 0.5mL Unknown Completed [facility] Flucelvax (ccIIV4) - SDS - 0.5mL Flucelvax (ccIIV4) - SDS - 0.5mL Unknown Completed [facility] Flucelvax (ccIIV4) - MDV - 0.5mL Flucelvax (ccIIV4) - MDV - 0.5mL Unknown Completed [facility] Flucelvax (ccIIV4) - SDS - 0.5mL Flucelvax (ccIIV4) - SDS - 0.5mL Unknown Completed [facility] Flucelvax (ccIIV4) - MDV - 0.5mL Flucelvax (ccIIV4) - MDV - 0.5mL Unknown Completed [facility] Flucelvax (ccIIV4) - SDS - 0.5mL Flucelvax (ccIIV4) - SDS - 0.5mL Unknown Completed [facility] Flucelvax (ccIIV4) - MDV - 0.5mL Flucelvax (ccIIV4) - MDV - 0.5mL Unknown Completed [facility] Flucelvax (ccIIV4) - SDS - 0.5mL Flucelvax (ccIIV4) - SDS - 0.5mL Unknown Completed [facility] Flucelvax (ccIIV4) - MDV - 0.5mL Flucelvax (ccIIV4) - MDV - 0.5mL Unknown Completed [facility] Flucelvax (ccIIV4) - SDS - 0.5mL Flucelvax (ccIIV4) - SDS - 0.5mL Unknown Completed [facility] Flucelvax (ccIIV4) - MDV - 0.5mL Flucelvax (ccIIV4) - MDV - 0.5mL Unknown Completed [facility] Flucelvax (ccIIV4) - SDS - 0.5mL Flucelvax (ccIIV4) - SDS - 0.5mL Unknown Completed [facility] Flucelvax (ccIIV4) - MDV - 0.5mL Flucelvax (ccIIV4) - MDV - 0.5mL Unknown Completed [facility] Flucelvax (ccIIV4) - SDS - 0.5mL Flucelvax (ccIIV4) - SDS - 0.5mL Unknown Completed [facility] Flucelvax (ccIIV4) - MDV - 0.5mL Flucelvax (ccIIV4) - MDV - 0.5mL Unknown Completed [facility] Flucelvax (ccIIV4) - SDS - 0.5mL Flucelvax (ccIIV4) - SDS - 0.5mL Unknown Completed [facility] Fluad (IIV) - SDS - 0.5mL Fluad (IIV) - SDS - 0.5mL Unknown Completed [facility] Flucelvax - multidose vial Flucelvax - multidose vial Unknown Completed [facility] Flucelvax - single dose syringe Flucelvax - single dose syringe Unknown Completed [facility] Flucelvax - multidose vial Flucelvax - multidose vial Unknown Completed [facility] Flucelvax - single dose syringe Flucelvax - single dose syringe Unknown Completed [facility] Flucelvax - multidose vial Flucelvax - multidose vial Unknown Completed [facility] Flucelvax - single dose syringe Flucelvax - single dose syringe Unknown Completed [facility] Flucelvax - multidose vial Flucelvax - multidose vial Unknown Completed [facility] Flucelvax - single dose syringe Flucelvax - single dose syringe Unknown Completed [facility] Flucelvax - multidose vial Flucelvax - multidose vial Unknown Completed [facility] Flucelvax - single dose syringe Flucelvax - single dose syringe Unknown Completed [facility] Flucelvax - multidose vial Flucelvax - multidose vial Unknown Completed [facility] Flucelvax - single dose syringe Flucelvax - single dose syringe Unknown Completed [facility] Flucelvax - multidose vial Flucelvax - multidose vial Unknown Completed [facility] Flucelvax - single dose syringe Flucelvax - single dose syringe Unknown Completed [facility] Flucelvax - multidose vial Flucelvax - multidose vial Unknown Completed [facility] Flucelvax - single dose syringe Flucelvax - single dose syringe Unknown Completed [facility] Flucelvax - multidose vial Flucelvax - multidose vial Unknown Completed [facility] Flucelvax - single dose syringe Flucelvax - single dose syringe Unknown Completed [facility] Vital Signs Vital Name Observation Time Observation Value Comments Migue zhao height 2024-06-20 14:20:00 73 [in_i] Commo n [facility] weight 2024-06-20 14:20:00 219.6 [lb_av] Co mmon [facility] temperature 2024-06-20 14:20:00 98.4 [degF] Com mon [facility] bmi 2024-06-20 14:20:00 28.97 kg/m2 Comm on [facility] oximetry 2024-06-20 14:20:00 97 [facility]-20 14:20:00 16 /min [facility] blood pressure systolic 2024-06-20 14:20:00 154 mm[Hg] [facility] blood pressure diastolic 2024-06-20 14:20:00 75 mm[Hg] [facility] height 2024-03-07 16:00:00 73 [in_i] Commo n [facility] weight 2024-03-07 16:00:00 220 [lb_av] Comm on [facility] bmi 2024-03-07 16:00:00 29.02 kg/m2 Comm on [facility] height 2023-12-01 16:00:00 73 [in_i] Commo n [facility] weight 2023-12-01 16:00:00 220 [lb_av] Comm on [facility] bmi 2023-12-01 16:00:00 29.02 kg/m2 Comm on [facility] height 2023-09-30 14:00:00 73 [in_i] Commo n [facility] weight 2023-09-30 14:00:00 220.2 [lb_av] Co mmon [facility] temperature 2023-09-30 14:00:00 97.9 [degF] Com mon [facility] bmi 2023-09-30 14:00:00 29.05 kg/m2 Comm on [facility] oximetry 2023-09-30 14:00:00 99 % Commo n [facility] respiratory rate 2023-09-30 14:00:00 18 /min Common [facility] blood pressure systolic 2023-09-30 14:00:00 146 mm[Hg[facility] blood pressure diastolic 2023-09-30 14:00:00 68 mm[Hg] Common [facility] height 2023-08-25 13:20:00 73 [in_i] Commo n [facility] weight 2023-08-25 13:20:00 220 [lb_av] Comm on [facility] bmi 2023-08-25 13:20:00 29.02 kg/m2 Comm on [facility] height 2023-05-21 16:00:00 73 [in_i] Commo n [facility] weight 2023-05-21 16:00:00 217.0 [lb_av] Co mmon [facility] temperature 2023-05-21 16:00:00 98.8 [degF] Com mon [facility] bmi 2023-05-21 16:00:00 28.63 kg/m2 Comm on [facility] oximetry 2023-05-21 16:00:00 95 % Commo n [facility] respiratory rate 2023-05-21 16:00:00 16 /min Common [facility] blood pressure systolic 2023-05-21 16:00:00 139 mm[Hg] [facility] blood pressure diastolic 2023-05-21 16:00:00 77 mm[Hg] Common [facility] height 2023-02-11 15:20:00 73 [in_i] Commo n [facility] weight 2023-02-11 15:20:00 214.0 [lb_av] Co [facility] temperature 2023-02-11 15:20:00 97.4 [degF] Com [facility] bmi 2023-02-11 15:20:00 28.23 kg/m2 Comm on [facility] oximetry 2023-02-11 15:20:00 95 % Commo n [facility] respiratory rate 2023-02-11 15:20:00 16 /min Common [facility] blood pressure systolic 2023-02-11 15:20:00 133 mm[Hg] Common [facility] blood pressure diastolic 2023-02-11 15:20:00 79 mm[Hg] Common [facility] height 2022-09-15 16:00:00 73 [in_i] Commo n [facility] weight 2022-09-15 16:00:00 227.8 [lb_av] Co [facility] temperature 2022-09-15 16:00:00 97.3 [degF] Com [facility] bmi 2022-09-15 16:00:00 30.05 kg/m2 Comm on [facility] oximetry 2022-09-15 16:00:00 95 % Commo n [facility] respiratory rate 2022-09-15 16:00:00 16 /min Common [facility] blood pressure systolic 2022-09-15 16:00:00 134 mm[Hg] [facility] blood pressure diastolic 2022-09-15 16:00:00 79 mm[Hg] Common [facility] height 2022-09-15 16:00:00 73 [in_i] Commo n [facility] weight 2022-09-15 16:00:00 227.8 [lb_av] Co mmon [facility] temperature 2022-09-15 16:00:00 97.3 [degF] Com mon [facility] bmi 2022-09-15 16:00:00 30.05 kg/m2 Comm on [facility] oximetry 2022-09-15 16:00:00 95 % Commo n [facility] respiratory rate 2022-09-15 16:00:00 16 /min Common [facility] blood pressure systolic 2022-09-15 16:00:00 134 mm[Hg] [facility] blood pressure diastolic 2022-09-15 16:00:00 79 mm[Hg] Common [facility] height 2022-09-03 17:00:00 73 [in_i] Commo n [facility] weight 2022-09-03 17:00:00 225.4 [lb_av] Co mmon [facility] temperature 2022-09-03 17:00:00 98.6 [degF] Com [facility] bmi 2022-09-03 17:00:00 29.73 kg/m2 Comm on [facility] oximetry 2022-09-03 17:00:00 99 % Commo n [facility] respiratory rate 2022-09-03 17:00:00 18 /min [facility] blood pressure systolic 2022-09-03 17:00:00 136 mm[Hg] [facility] blood pressure diastolic 2022-09-03 17:00:00 80 mm[Hg] [facility] height 2022-06-16 16:00:00 73 [in_i] Commo n [facility] weight 2022-06-16 16:00:00 220 [lb_av] Comm on [facility] temperature 2022-06-16 16:00:00 97.5 [degF] Com mon [facility] bmi 2022-06-16 16:00:00 29.02 kg/m2 Comm on [facility] oximetry 2022-06-16 16:00:00 96 % Commo n [facility] respiratory rate 2022-06-16 16:00:00 16 /min [facility] blood pressure systolic 2022-06-16 16:00:00 160 mm[Hg] [facility] blood pressure diastolic 2022-06-16 16:00:00 90 mm[Hg] [facility] blood pressure diastolic 2021-07-18 17:00:00 91 mm[Hg] [facility] height 2021-07-18 17:00:00 73 [in_i] Commo n [facility] weight 2021-07-18 17:00:00 225 [lb_av] Comm on [facility] temperature 2021-07-18 17:00:00 97.9 [degF] Com mon [facility] bmi 2021-07-18 17:00:00 29.68 kg/m2 Comm on [facility] oximetry 2021-07-18 17:00:00 99 % Commo n [facility] respiratory rate 2021-07-18 17:00:00 18 /min [facility] blood pressure systolic 2021-07-18 17:00:00 146 mm[facility]Hg[facility] Procedures Procedure Date / Time Performed Performing Clinicia n Source PVR 2023-09-30 00:00:00 [facility] Encounters Start Date/Time End Date/Time Encounter Type Admission Type Attending Clinicians Care Facility Care Department Encounter ID Source 2024-05-24 12:07:00 Outpatient Mary Alberto [facility] [id number] [facility] 2023-10-12 11:49:00 Outpatient Mary Alberto [facility] [id number] [facility] 2023-01-13 08:24:01 [place] Mary [facility] [id number] [facility] 2022-12-16 14:33:02 [place], Mary [facility] [id number] [facility] 2022-11-11 08:03:02 [place], Mary [facility] [id number] [facility] 2022-10-13 15:31:02 Out[place], Mary [facility] [id number] [facility] 2022-09-16 11:26:01 Out[place], Mary [facility] [id number] [facility] 2022-09-11 09:33:00 [place] [facility] [id number] [facility] 2022-06-13 09:11:01 Out[place], Mary [facility] [id number] [facility] 2022-03-27 11:28:02 Out[place], Mary [facility] [id number] [facility] 2022-03-17 09:41:01 Out[place], Mary [facility] [id number] [facility] 2022-03-11 11:41:02 Out[place], Mary [facility] [id number] [facility] 2022-03-06 14:55:01 Outpatient [place], Mary [facility] [id number] [facility] 2022-02-24 08:36:04 Outpatient [place], Mary [facility] [id number] [facility] 2022-02-07 11:10:02 Outpatient [place], Mary [facility] [id number] [facility] 2021-12-23 16:24:01 Outpatient Mary Alberto [facility] [id number] [facility] 2021-10-21 14:49:01 Outpatient Mary Alberto [facility] [id number] [facility] 2021-09-04 14:26:58 Outpatient Mary Alberto [facility] [id number] [facility] 2021-09-04 14:23:10 Outpatient Mary Alberto [facility] [id number] [facility] 2024-08-25 00:00:00 2024-08-25 00:00:00 (TEL) [facility] [id number] [facility] 2024-06-20 00:00:00 2024-06-20 00:00:00 OFFICE VISIT ESTAB PT LEVEL 4 [facility] [id number] [facility] 2024-03-07 00:00:00 2024-03-07 00:00:00 OFFICE VISIT ESTAB PT LEVEL 4 [facility] [id number] [facility] 2024-03-07 00:00:00 2024-03-07 00:00:00 (TEL) [facility] [id number] [facility] 2024-01-01 00:00:00 2024-01-01 00:00:00 (TEL) [facility] [id number] [facility] 2023-12-01 00:00:00 2023-12-01 00:00:00 OFFICE VISIT ESTAB PT LEVEL 4 [facility] [id number] [facility] 2023-10-30 00:00:00 2023-10-30 00:00:00 (TEL) [facility] [id number] [facility] 2023-10-26 00:00:00 2023-10-26 00:00:00 (TEL) [facility] ST[facility] [id number] [facility] 2023-09-30 00:00:00 2023-09-30 00:00:00 OFFICE VISIT ESTAB PT LEVEL 4 [facility] [id number] [facility] 2023-09-17 00:00:00 2023-09-17 00:00:00 (TEL) [facility] [id number] [facility] 2023-09-11 00:00:00 2023-09-11 00:00:00 (TEL) [facility] [id number] [facility] 2023-08-25 00:00:00 2023-08-25 00:00:00 OFFICE VISIT ESTAB PT LEVEL 3 [facility] [id number] [facility] 2023-06-11 00:00:00 2023-06-11 00:00:00 (TEL) [facility] [id number] [facility] 2023-05-21 00:00:00 2023-05-21 00:00:00 OFFICE VISIT ESTAB PT LEVEL 3 [facility] [id number] [facility] 2023-02-11 00:00:00 2023-02-11 00:00:00 OFFICE VISIT ESTAB PT LEVEL 4 [facility] [id number] [facility] [facility] 2023-02-09 00:00:00 2023-02-09 00:00:00 (TEL) STLMLC STLMLC [id number] [facility] 2022-12-25 00:00:00 2022-12-25 00:00:00 (TEL) STLMLC STLMLC [id number] [facility] 2022-12-16 00:00:00 2022-12-16 00:00:00 (TEL) STLMLC STLMLC [id number] [facility] 2022-10-21 00:00:00 2022-10-21 00:00:00 (TEL) STLMLC STLMLC [id number] [facility] 2022-10-13 00:00:00 2022-10-13 00:00:00 (TEL) STLMLC STLMLC [id number] [facility] 2022-09-30 00:00:00 2022-09-30 00:00:00 (NV) Nurse Visit STLMLC STLMLC [id number] [facility] 2022-09-17 00:00:00 2022-09-17 00:00:00 (TEL) STLMLC STLMLC [id number] [facility] 2022-09-15 00:00:00 2022-09-15 00:00:00 OFFICE VISIT ESTAB PT LEVEL 4 [facility]LMLC STLMLC [id number] [facility] 2022-09-15 00:00:00 2022-09-15 00:00:00 INIT ANNUAL MCR WELLNESS VISIT STLMLC STLMLC [id number] [facility] 2022-09-10 00:00:00 2022-09-10 00:00:00 (TEL) STLMLC STLMLC [id number] [facility] 2022-09-03 00:00:00 2022-09-03 00:00:00 OFFICE VISIT EST PT LEVEL 3 [facility]LMLC STLMLC [id number] [facility] 2022-07-29 00:00:00 2022-07-29 00:00:00 (TEL) STLMLC STLMLC [id number] [facility] 2022-07-22 00:00:00 2022-07-22 00:00:00 (NV) Nurse Visit STLMLC STLMLC [id number] [facility] 2022-07-15 00:00:00 2022-07-15 00:00:00 (NV) Nurse Visit STLMLC STLMLC [id number] [facility] 2022-07-09 00:00:00 2022-07-09 00:00:00 (TEL) STLMLC STLMLC [id number] [facility] 2022-07-08 00:00:00 2022-07-08 00:00:00 (NV) Nurse Visit STLMLC STLMLC [id number] [facility] 2022-07-01 00:00:00 2022-07-01 00:00:00 (TEL) STLMLC STLMLC [id number] [facility] 2022-07-01 00:00:00 2022-07-01 00:00:00 (NV) Nurse Visit STLMLC STLMLC [id number] [facility] 2022-06-26 00:00:00 2022-06-26 00:00:00 (TEL) STLMLC STLMLC [id number] [facility] 2022-06-25 00:00:00 2022-06-25 00:00:00 (TEL) STLMLC STLMLC [id number] [facility] 2022-06-24 00:00:00 2022-06-24 00:00:00 (NV) Nurse Visit STLMLC STLMLC [id number] [facility] 2022-06-17 00:00:00 2022-06-17 00:00:00 (NV) Nurse Visit STLMLC STLMLC [id number] [facility] 2022-06-16 00:00:00 2022-06-16 00:00:00 OFFICE VISIT ESTAB PT LEVEL 4 [facility]LMLC STLMLC [id number] [facility] 2022-06-10 00:00:00 2022-06-10 00:00:00 (NV) Nurse Visit STLMLC STLMLC [id number] [facility] 2022-06-03 00:00:00 2022-06-03 00:00:00 (NV) Nurse Visit STLMLC STLMLC [id number] [facility] 2022-05-27 00:00:00 2022-05-27 00:00:00 (NV) Nurse Visit STLMLC STLMLC [id number] [facility] 2022-05-20 00:00:00 2022-05-20 00:00:00 (NV) Nurse Visit STLMLC STLMLC [id number] [facility] 2022-05-13 00:00:00 2022-05-13 00:00:00 (NV) Nurse Visit STLMLC STLMLC [id number] [facility] 2022-05-06 00:00:00 2022-05-06 00:00:00 (NV) Nurse Visit STLMLC STLMLC [id number] [facility] 2022-04-21 00:00:00 2022-04-21 00:00:00 ambulatory STLMLC STLMLC [id number] [facility] 2022-03-31 00:00:00 2022-03-31 00:00:00 ambulatory STLMLC STLMLC [id number] [facility] 2022-03-20 00:00:00 2022-03-20 00:00:00 ambulatory STLMLC STLMLC [id number] [facility] 2022-03-17 00:00:00 2022-03-17 00:00:00 ambulatory STLMLC STLMLC [id number] [facility] 2022-03-14 00:00:00 2022-03-14 00:00:00 ambulatory STLMLC STLMLC [id number] [facility] 2022-03-13 00:00:00 2022-03-13 00:00:00 ambulatory STLMLC STLMLC [id number] [facility] 2022-03-11 00:00:00 2022-03-11 00:00:00 ambulatory STLMLC STLMLC [id number] [facility] 2022-03-06 00:00:00 2022-03-06 00:00:00 ambulatory STLMLC STLMLC [id number] [facility] 2022-02-26 00:00:00 2022-02-26 00:00:00 ambulatory STLMLC STLMLC [id number] [facility] 2022-02-07 00:00:00 2022-02-07 00:00:00 ambulatory STLMLC STLMLC [id number] [facility] 2021-12-20 00:00:00 2021-12-20 00:00:00 ambulatory STLMLC STLMLC [id number] [facility] 2021-11-12 00:00:00 2021-11-12 00:00:00 ambulatory STLMLC STLMLC [id number] [facility] 2021-10-16 00:00:00 2021-10-16 00:00:00 ambulatory STLMLC STLMLC [id number] [facility] 2021-07-31 00:00:00 2021-07-31 00:00:00 ambulatory STLMLC STLMLC [id number] [facility] 2021-07-24 00:00:00 2021-07-24 00:00:00 (TEL) STLMLC STLMLC [id number] [facility] 2021-07-18 00:00:00 2021-07-18 00:00:00 OFFICE VISIT EST PT LEVEL 3 STLMLC STLMLC [id number] [facility] Results Test Description Test Time Test Comments Results Result Co mments Source
[2024-08-29] MEDS ORDERED: GABAPENTIN 300 MG CAP ONE (14:37)
[2024-08-29] MEDS ORDERED: MORPHINE 4 MG/ML SYR ONE (14:37)
[2024-08-29] MEDS ORDERED: ONDANSETRON 4 MG/2 ML VIAL ONE (14:37)
[2024-08-29 14:41] LABS: Absolute Basophils 0.1 K/uL (0-0.5); Absolute Lymphocytes (CBC) 1.1 K/uL (0.7-4.9); Absolute Neutrophil 11.4 K/uL (1.8-8.0); Basophils % 0.6 % (0-1.3); Eosinophils % 0.2 % (0-4.4); Hematocrit 39.8 % (39.6-49.0); Hemoglobin 13.1 g/dL (13.6-17.9); Lymphocytes % 7.9 % (15.3-44.8); MCH 28.3 pg (27.0-35.0); MCHC 32.8 g/dL (32.0-36.0); MCV 86.2 fL (80-100); MPV 8.6 fL (7.6-11.3); Monocytes % 7.5 % (3.3-12.3); Neutrophils % 83.8 % (41.7-73.7); Platelets 245 thou/uL (152-406); RBC Red Blood Cell Count 4.62 M/uL (4.33-5.43); Red Cell Distribution Width 14.6 % (12.1-15.2)
[2024-08-29 15:04] LABS: Albumin/Globulin Ratio 0.8 (1.1-1.8); Anion Gap 13.3 mEq/L (5.0-15.0); Bilirubin Total 0.2 mg/dL (0.2-1.0); Globulin 3.7 g/dL (2.3-3.5); Potassium 4.3 mEq/L (3.5-5.1); Protein, Total 6.7 g/dL (6.4-8.2)
--- NOTE | 2024-08-29 15:30 | RAD REPORT ---
EXAMINATION: CT ABDOMEN AND PELVIS WITH CONTRAST CLINICAL INDICATION: Male, 69 years old.back pain, radiation both legs TECHNIQUE: CT abdomen and pelvis was performed, after the administration of IV contrast, as per [facility] protocol. Axial, sagittal and coronal reconstructions were obtained. One or more of the following dose reduction techniques were used: Automated exposure control, adjustment of the mA and/o r kV according to patient size, and/or iterative reconstruction. Unless otherwise specified, incidental findings do not require dedicated imaging follow-up. [id number]. COMPARISON: 05/14/2020 FINDINGS: LOWER CHEST: No acute process identified.No significant pericardial effusion. Mild circumferential th ickening distal esophagus.Small hiatal hernia. UPPER GI: No significant abnormality. LIVER: Hepatic steatosis, but otherwise unremarkable. GALLBLADDER/BILE DUCTS: Cholecystectomy. Mild extra-hepatic biliary ductal dilatation is likely relat ed to the post-cholecystectomy state. Consider correlating with LFT's.? PANCREAS: No mass, ductal dilation, or teo-pancreatic fluid. SPLEEN: Unremarkable. ADRENALS: No adrenal masses. KIDNEYS AND URETERS: No hydronephrosis.Low density and/or too small to characterize renal lesions whi ch are statistically benign. ABDOMINAL AORTA AND OTHER VESSELS: Mild atherosclerotic changes. PERITONEUM: No abnormal free fluid. No free air. LYMPH NODES: No pathologic lymphadenopathy. ABDOMINAL WALL: Unremarkable SMALL BOWEL/COLON: Small bowel has normal course and caliber. No colonic wall thickening or pericolon ic inflammatory changes.Appendix absent. Moderate colonic stool. URINARY BLADDER: Underdistended but grossly unremarkable. REPRODUCTIVE ORGANS: No pathologic process. MUSCULOSKELETAL: No acute or suspicious osseous abnormality. ADDITIONAL FINDINGS: None. IMPRESSION: No acute or significant abnormalities seen in the abdomen or pelvis. Question constipation.
--- NOTE | 2024-08-29 15:36 | EDPHYS ---
Physician Documentation [facility] Name: Neftali Gill Jr Age: 69 yrs Sex: Male : 1955 Arrival Date: 08/29/2024 Time: 13:53 Bed 6 Private MD: ED Physician Magen Palacios HPI: 08/29 14:38 This 69 yrs old Black Male presents to ER via EMS with complaints of Back Pain. rn 14:38 The patient presents with pain that is acute. The symptoms are located in the low back. rn Onset: The symptoms/episode began/occurred last night. The pain radiates to the right leg. Modifying factors: The patient symptoms are alleviated by remaining still, the patient symptoms are aggravated by any movement. Severity of symptoms: At their worst the symptoms were moderate, in the emergency department the symptoms are unchanged. The patient has not experienced similar symptoms in the past. Patient reports right lower back pain, began last night, no injury or trauma. Radiates down right leg and stops and thigh. Denies having this in the past. No weakness of lower extremities. No bowel or bladder issues. No fever or chills.. Historical: - Allergies: 13:59 ACES; iw 13:59 Cephalexin; iw 13:59 Diovan; iw 13:59 Lisinopril; iw 13:59 nebivolol HCl; iw 13:59 NSAIDS; iw 13:59 valsartan; iw - PMHx: 13:59 Hypertension; ANGIOEDEMA; High Cholesterol; NIDDM; GERD; iw - PSHx: 13:59 Cholecystectomy; TURP; iw - Immunization history:: Adult Immunizations unknown. - Infectious Disease History:: Denies. - Family history:: not pertinent. - Hospitalizations: : No recent hospitalization is reported. - Social history:: Smoking status: unknown. ROS: 14:38 Constitutional: Negative for fever, chills, and weight loss, Neck: Negative for injury, rn pain, and swelling, Cardiovascular: Negative for chest pain, palpitations, and edema, Respiratory: Negative for shortness of breath, cough, wheezing, and pleuritic chest pain, Abdomen/GI: Negative for abdominal pain, nausea, vomiting, diarrhea, and constipation, Back: Positive for lower back pain : Negative for injury, bleeding, discharge, and swelling, MS/Extremity: Negative for injury and deformity, Skin: Negative for injury, rash, and discoloration, Neuro: Negative for headache, weakness, numbness, tingling, and seizure, Exam: 14:38 Constitutional: This is a well developed, well nourished patient who is awake, alert, rn and in no acute distress. Cardiovascular: Regular rate and rhythm. No pulse deficits. Respiratory: No increased work of breathing, no retractions or nasal flaring. Abdomen/GI: Soft, non-tender Back: No spinal tenderness. MS/ Extremity: Pulses equal, no cyanosis. Neurovascular intact. Painful right straight leg raise. No bony tenderness or deformity Neuro: Awake and alert, GCS 15, oriented to person, place, time, and situation. Cranial nerves II-XII grossly intact. Motor strength 5/5 in all extremities. Sensory grossly intact. Cerebellar exam normal. Vital Signs: 14:42 BP 150 / 72; Pulse 54; Resp 16; Pulse Ox 97% on R/A; iw 14:56 BP 119 / 66; Pulse 59; Resp 16; Pulse Ox 97% on R/A; iw MDM: 14:00 Medical Screening Exam initiated rn 15:34 Differential diagnosis: arthritis, Fatigue Osteoarthritis Osteoporosis Perforated Ulcer rn sprain, Ureterolithiasis vertebral fracture. Data reviewed: vital signs, nurses notes, lab test result(s), radiologic studies, CT scan, and as a result, I will discharge patient. Counseling: I had a detailed discussion with the patient and/or guardian regarding the historical points, exam findings, and any diagnostic results supporting the discharge/admit diagnosis, lab results, radiology results, the need for outpatient follow up, to return to the emergency department if symptoms worsen or persist or if there are any questions or concerns that arise at home. Response to treatment: the patient's symptoms have mildly improved after treatment, and as a result, I will discharge patient. Special discussion: I discussed with the patient/guardian in detail that at this point there is no indication for admission to the hospital. It is understood, however, that if the symptoms persist or worsen the patient needs to return immediately for re-evaluation. Based on the history and exam findings, there is no indication for further emergent testing or inpatient evaluation. I discussed with the patient/guardian the need to see the primary care provider for further evaluation of the symptoms. ED course: No acute findings and workup. Will discharge home with as needed pain medication and return precautions.. 08/29 14:06 Order name: CBC with Diff; Complete Time: 15:02 rn 08/29 14:06 Order name: CMP; Complete Time: 15:05 rn 08/29 14:06 Order name: Lipase; Complete Time: 15:05 rn 08/29 14:06 Order name: CT Abd/Pelvis - IV Contrast Only; Complete Time: 15:31 rn 08/29 14:06 Order name: IV Saline Lock; Complete Time: 14:32 rn 08/29 14:06 Order name: Labs collected and sent; Complete Time: 14:32 rn Administered Medications: 14:42 Drug: Gabapentin PO 300 mg PO once Route: PO; iw 15:15 Follow up: Response: No adverse reaction iw 14:43 Drug: Ondansetron IVP 4 mg IVP once; over 2 minutes Route: IVP; Site: right upper arm; iw 15:15 Follow up: Response: No adverse reaction; Pain is decreased iw 14:43 Drug: morphine IVP or IV 4 mg IVP once over 4 mins Route: IVP; Infused Over: 4 mins; iw Site: right upper arm; 15:15 Follow up: Response: No adverse reaction; Pain is decreased iw 15:57 Drug: HYDROcodone-acetaminophen PO 5 mg-325 mg 1 tabs PO once Route: PO; jb4 15:57 Follow up: Response: Medication administered at discharge. jb4 Disposition Summary: 08/29/24 15:36 Discharge Ordered Notes: Location: Home rn Problem: new rn Symptoms: have improved rn Condition: Stable rn Diagnosis - Low back pain rn - Radiculopathy, lumbar region rn Followup: rn - With: Private Physician - When: As needed - Reason: Recheck today's complaints, Re-evaluation by your physician Discharge Instructions: - Discharge Summary Sheet rn - Acute Back Pain, Adult rn - Lumbosacral Radiculopathy rn - Musculoskeletal Pain rn Forms: - Medication Reconciliation Form rn - Antibiotic barn hand - Prescription Opioid Use rn - Patient Portal Instructions rn - Leadership Thank You Letter rn Prescriptions: - gabapentin 100 mg Oral capsule - take 1 capsule ORAL route every 12 hours As needed; 14 capsule; Refills: 0, rn Product Selection Permitted - Tramadol 50 mg Oral Tablet - take 1 tablet ORAL route every 8 hours as needed; 12 tablet; Refills: 0, rn Product Selection Permitted - Medrol (Turner) 4 mg Oral Tablets, Dose Pack - take 1 tablet ORAL route as directed - follow package instructions; 1 packet; rn Refills: 0, Product Selection Permitted Signatures: Dispatcher [employer] Nedra Novak RN RN iw Nieto, Roman, MD MD rn Bryson, James, ANSLEY PANCHAL jb4 Corrections: (The following items were deleted from the chart) 14:06 14:06 Abdomen Pelvis W Con+CT.RAD.BRZ ordered. EDMS EDMS 14:39 14:38 Constitutional: Negative for fever, chills, and weight loss, Neck: Negative for rn injury, pain, and swelling, Cardiovascular: Negative for chest pain, palpitations, and edema, Respiratory: Negative for shortness of breath, cough, wheezing, and pleuritic chest pain, Abdomen/GI: Negative for abdominal pain, nausea, vomiting, diarrhea, and constipation, Back: Positive for lower back pain MS/Extremity: Negative for injury and deformity, Skin: Negative for injury, rash, and discoloration, Neuro: Negative for headache, weakness, numbness, tingling, and seizure, rn
--- NOTE | 2024-08-29 15:36 | ER ---
Nurse's Notes [facility] Name: Neftali Gill Jr Age: 69 yrs Sex: Male : 1955 Arrival Date: 08/29/2024 Time: 13:53 Bed 6 Private MD: Diagnosis: Low back pain;Radiculopathy, lumbar region Presentation: 08/29 13:58 Chief complaint: EMS states: right leg pain radiating from back down leg, also has pain iw to left calf area, started last night, no injury. Coronavirus screen: At this time, the client does not indicate any symptoms associated with coronavirus-19. Risk Assessment: Do you want to hurt yourself or someone else? Patient reports no desire to harm self or others. Onset of symptoms was August 28, 2024. 13:58 Method Of Arrival: EMS: [facility] iw 13:58 Acuity: [place] 3 iw 13:58 Coronavirus screen: At this time, the client does not indicate any symptoms associated iw with coronavirus-19. Ebola Screen: No symptoms or risks identified at this time. Initial Sepsis Screen: Does the patient meet any 2 criteria? No. Patient's initial sepsis screen is negative. Does the patient have a suspected source of infection? No. Patient's initial sepsis screen is negative. Historical: - Allergies: 13:59 ACES; iw 13:59 Cephalexin; iw 13:59 Diovan; iw 13:59 Lisinopril; iw 13:59 nebivolol HCl; iw 13:59 NSAIDS; iw 13:59 valsartan; iw - PMHx: 13:59 Hypertension; ANGIOEDEMA; High Cholesterol; NIDDM; GERD; iw - PSHx: 13:59 Cholecystectomy; TURP; iw - Immunization history:: Adult Immunizations unknown. - Infectious Disease History:: Denies. - Family history:: not pertinent. - Hospitalizations: : No recent hospitalization is reported. - Social history:: Smoking status: unknown. Screenin:56 [facility] ED Fall Risk Assessment (Adult) History of falling in the last 3 months, iw including since admission No falls in past 3 months (0 pts) Confusion or Disorientation No (0 pts) Intoxicated or Sedated No (0 pts) Impaired Gait No (0 pts) Mobility Assist Device Used No (0 pt) Altered Elimination No (0 pt) Score/Fall Risk Level 0 - 2 = Low Risk Oriented to surroundings, Maintained a safe environment. Abuse screen: Denies threats or abuse. Denies injuries from another. Nutritional screening: No deficits noted. Tuberculosis screening: No symptoms or risk factors identified. Assessment: 14:43 General: Appears in no apparent distress. Behavior is calm, cooperative. Pain: iw Complains of pain in right leg. Neuro: Level of Consciousness is awake, alert, obeys commands, Oriented to person, place, time, situation. 15:40 Reassessment: Patient appears in no apparent distress at this time. Patient and/or iw family updated on plan of care and expected duration. Pain level reassessed. Patient is alert, oriented x 3, equal unlabored respirations, skin warm/dry/pink. Vital Signs: 14:42 BP 150 / 72; Pulse 54; Resp 16; Pulse Ox 97% on R/A; iw 14:56 BP 119 / 66; Pulse 59; Resp 16; Pulse Ox 97% on R/A; iw ED Course: 13:58 Patient arrived in ED. iw 13:59 Triage completed. iw 13:59 Arm band placed on. iw 14:00 Magen Palacios MD is Attending Physician. rn 14:32 Nedra Lakhani RN is Primary Nurse. iw 14:32 CBC with Diff Sent. bc6 14:32 CMP Sent. bc6 14:32 Lipase Sent. bc6 14:32 Initial lab(s) drawn, by me, sent to lab. Inserted saline lock: 20 gauge in right upper bc6 arm, using aseptic technique. Blood collected. Flushed with 10 mL NS. 14:56 Patient has correct armband on for positive identification. Provided Education on: pain iw meds. Client placed on continuous cardiac and pulse oximetry monitoring. NIBP monitoring applied. 15:19 CT Abd/Pelvis - IV Contrast Only In Process Unspecified. EDMS 16:05 No provider procedures requiring assistance completed. IV discontinued, intact, iw bleeding controlled, No redness/swelling at site. Pressure dressing applied. Administered Medications: 14:42 Drug: Gabapentin PO 300 mg PO once Route: PO; iw 15:15 Follow up: Response: No adverse reaction iw 14:43 Drug: Ondansetron IVP 4 mg IVP once; over 2 minutes Route: IVP; Site: right upper arm; iw 15:15 Follow up: Response: No adverse reaction; Pain is decreased iw 14:43 Drug: morphine IVP or IV 4 mg IVP once over 4 mins Route: IVP; Infused Over: 4 mins; iw Site: right upper arm; 15:15 Follow up: Response: No adverse reaction; Pain is decreased iw 15:57 Drug: HYDROcodone-acetaminophen PO 5 mg-325 mg 1 tabs PO once Route: PO; jb4 15:57 Follow up: Response: Medication administered at discharge. jb4 Medication: 14:00 VIS not applicable for this client. iw Outcome: 15:36 Discharge ordered by . rn 16:05 Discharged to home via wheelchair, with family, iw 16:05 Condition: good 16:05 Discharge instructions given to patient, Instructed on discharge instructions, follow up and referral plans. medication usage, Demonstrated understanding of instructions, follow-up care, medications, Prescriptions given X 3, 16:06 Patient left the ED. iw Signatures: Dispatcher [employer] EDNedra Linda RN RN iw Nieto, Roman, MD MD rn Bryson, James, RN RN jb Ines Tucker 6
[2024-08-29] MEDS ORDERED: HYDROCODONE/APAP 5/325 MG TAB ONE (15:55)
[2024-08-29 17:46] VITALS: O2SAT 97
[2024-08-29 17:47] VITALS: BP 119/66
== END 2024-08-29 16:06 | disposition home or self-care (01) ==
LOC: ER 13:53
DX: M54.16 Radiculopathy, lumbar region (principal)
CPT/HCPCS: 85025; 36415; 83690; 80053; 74177; 96375; 96374; 99284; Q9967; J2405

== ENCOUNTER 2024-11-21 03:04 | Emergency (ER) | payer OTHER ==
--- OUTSIDE RECORDS SUMMARY | 2024-11-21 03:09 | XMS REPORT | Continuity of Care Document ---
Author Name Unknown Address [address] [facility] [address] [place] [address] [facility] Address [address] [facility]. [address] [place] [address] Care Team Providers Care Corporate Treasurer Name Role Phone Mary Alberto Primary Care Physician [phone] Mary Alberto Attending Clinician Unavailable Pedro Bah MD Attending Clinician [phone] PEDOR BAH Attending Clinician Unavailable Pob, [facility] Main Attending Clinician UnavailTico De La Vega MD Attending Clinician TICO ACE Attending Clinician Unavail able Betzaida Motley Attending Clinician [phone] Lita Voss Attending Clinician [phone] ASHLYN CARDOSO Attending Clinician Unavailab le Ashlyn Cardoso NP Attending Clinician [phone] PEDRO BAH Admitting Clinician Unavailable Pedro Bah MD Admitting Clinician [phone] ASHLYN CARDOSO Admitting Clinician Unavailab le Payers Payer Name Policy Type Policy Number Effective Date Expirati on Date Source [facility] [id number] 2022 00:00:00 2024 00:00:00 [facility] 111 [id number] 2022 00:00:00 [facility] Problems Condition Name Condition Details Condition Category Status Onset Date Resolution Date Last Treatment Date Treating Clinician Comments Source Lumbar radiculopa thy Lumbar radiculopa thy Disease Active 2-20 00:00: 00 [facility] 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 and lower extremity pain 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 and lower extremity pain Disease Active 09-08 00:00: 00 [facility] Acute right-side d low back pain with right-side d sciatica Acute right-side d low back pain with right-side d sciatica Disease Active 09-08 00:00: 00 [facility] Type 2 diabetes mellitus without complicati on Type 2 diabetes mellitus without complicati on Disease Active 03-26 00:00: 00 [facility] Essential hypertensi on Essential hypertensi on Disease Active 03-26 00:00: 00 [facility] Type 2 diabetes mellitus without complicati on Type 2 diabetes mellitus without complicati on Disease Active 03-26 00:00: 00 [facility] Obesity Obesity Disease Active 03-26 00:00: 00 [facility] Chest pain Chest pain Disease Active 03-25 00:00: 00 [facility] [id number] Detrusor instabilit y Problem [facility] [id number] Urge incontinen ce Problem [facility] [id number] BMI 28.0-28.9, adult Problem [facility] [id number] Diarrhea, functional Problem [facility] 2864044 Primary insomnia Problem [facility] [id number] Lumbar back pain with radiculopa thy affecting lower extremity Problem [facility] [id number] Disorder of urinary system, unspecifie d Problem [facility] Frequency Frequency Problem Comm on [facility] Comprehens ladi eye examinatio n (procedure ) Routine eye exam Problem Common [facility] [id number] Current every day smoker Problem [facility] [id number] Right upper quadrant abdominal pain Problem [facility] Seasonal allergic rhinitis Seasonal allergic reaction Problem [facility] Peripheral neuropathy Peripheral neuropathy Problem [facility] Disturbanc e of skin sensation Disturbanc e of skin sensation Problem [facility] Angioedema Angioedema Problem Co mmon [facility] Hypertensi on Hypertensi on Problem Common [facility] [id number] Wound of skin Problem [facility] [id number] S/P TURP (status post transureth ral resection of prostate) Problem [facility] 82971681 Dysuria Problem [facility] [id number] Other postherpet ic nervous system involvemen t Problem [facility] [id number] Hospital discharge follow-up Problem [facility] 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 Problem [facility] 07808079 Diarrhea of presumed infectious origin Problem [facility] [id number] Acquired anal stenosis Problem [facility] [id number] Lower urinary tract symptoms (LUTS) Problem [facility] [id number] BPH loc w urin obs/LUTS Problem [facility] Benign prostatic hyperplasi a BPH (benign prostatic hyperplasi a) Problem [facility] 06773360 Prostatiti s, acute Problem [facility] [id number] ED (erectile dysfunctio n) of organic origin Problem [facility] [id number] [facility] care current use of insulin Problem [facility] Overactive bladder OAB (overactiv e bladder) Problem [facility] Impotence of organic origin ED (erectile dysfunctio n) Problem [facility] [id number] 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 Problem [facility] 432523718 Type 2 diabetes mellitus with foot ulcer Problem [facility] [id number] Gastroesop hageal reflux disease without esophagiti s Problem [facility] 41628317 Urethritis Problem [facility] [id number] Incomplete emptying of bladder Problem [facility] Allergies, Adverse Reactions, Alerts Allergy Name Allergy Type Status Severity Reaction(s) Onset Date Inactive Date Treating Clinician Comments Source Aspirin Propensi ty to adverse reaction s Active Hives 03-25 00:00: 00 [facility] Valsarta n Propensi ty to adverse reaction s Active Swelling 03-25 00:00: 00 [facility] Lisinopr il Propensi ty to adverse reaction s Active Rash 03-25 00:00: 00 [facility] Nsaids (Non-Rafael roidal Anti-Inf lammator y Drug) Propensi ty to adverse reaction s Active Rash 03-25 00:00: 00 [facility] ASPIRIN DRUG INGREDI Active Hives 03-25 00:00: 00 [facility] VALSARTA N DRUG INGREDI Active Swelling 03-25 00:00: 00 [facility] LISINOPR IL DRUG INGREDI Active Rash 03-25 00:00: 00 [facility] Nsaids (Non-Rafael roidal Anti-Inf lammator y Drug) Propensi ty to adverse reaction s Active Rash 03-25 00:00: 00 [facility] NSAIDS (NON-RAFAEL ROIDAL ANTI-INF LAMMATOR Y DRUG) Drug Class Active Rash 03-25 00:00: 00 [facility] lisinopr il lisinopr il Active angioedema [facility] valsarta n valsarta n Active angioedema [facility] 6335 Drug allergy Active Unknown [facility] cephalex in cephalex in Active shock [facility] carvedil ol carvedil ol Active Unknown [facility] Social History Social Habit Start Date Stop Date Quantity Comments Source History of tobacco use Smokes tobacco daily [facility] use and exposure 2024-09-29 00:00:00 2024-09-29 00:00:00 Smokeless tobacco non-user [facility] History of Social function 2024-09-29 00:00:00 2024-09-29 00:00:00 [facility] Tobacco Comment 2024-09-29 00:00:00 2024-09-29 00:00:00 2-3 cigarettes per day [facility] Sex assigned at 1955 00:00:00 1955 00:00:00 [facility] Smoking Status Start Date Stop Date Source Smokes tobacco daily 2024-09-29 00:00:00 [facility] Never Smoker [facility] Medications Ordered Medication Name Filled Medication Name Start Date Stop Date Current Medication? Ordering Clinician Indication Dosage Frequency Signature (SIG) Comments Components Source Pregabalin 225 MG Pregabalin 225 MG 11-11 00:00: 00 No 1{capsu le} BID Pregabalin 225 MG diazePAM (VALIUM) 5 mg tablet 11-11 00:00: 00 Yes [id number] 5mg Take 1 tablet by mouth every 8 (eight) hours as needed for Muscle Spasms. [facility] traMADoL 50 mg tablet 11-11 00:00: 00 11-19 04:59 :00 Yes [id number] 50mg Take 1 tablet by mouth every 6 (six) hours as needed for Pain (scale 4-6) for up to 7 days. Indication s: acute pain [facility] traMADoL 50 mg tablet 3-27 00:00: 00 11-11 04:59 :00 Yes [id number] 50mg Take 1 tablet by mouth every 6 (six) hours as needed for Pain (scale 4-6) for up to 7 days. Indication s: acute pain [facility] diazePAM (VALIUM) 5 mg tablet 10-31 00:00: 00 Yes [id number] 5mg Take 1 tablet by mouth every 8 (eight) hours as needed for Muscle Spasms. [facility] HYDROcodone -acetaminop hen (NORCO 5) tablet 1 tablet 10-12 17:30: 00 10-12 17:47 :00 No 1{tbl} 1 tablet, Oral, ONCE, 1 dose, On Thu10/12/24 at 1130, Routine, PACU [facility] lactated ringers IV infusion 1,000 mL 10-12 17:30: 00 10-12 21:09 :10 No 1000mL at 42 mL/hr, 1,000 mL, IV Infusion, CONTINUOUS , Starting on Thu10/12/24 at 1130, Until Thu10/12/24 at 1509, Routine, PACU [facility] HYDROmorpho ne (DILAUDID) injection 0.2 mg 10-12 17:29: 16 10-12 21:09 :10 No .2mg 0.2 mg, Slow IV Push, Q5MIN PRN, 10 doses, Starting on Thu10/12/24 at 1129, Until Thu10/12/24 at 1509, Routine, Pain (scale 7-10), PACU, Is this medication approved by a Faculty level provider? Yes, cleaning team member approving Restricted medication : LEEANN DOUGLASS [facility] FENTanyl (PF) (SUBLIMAZE) injection 25 mcg 10-12 17:29: 16 10-12 21:09 :10 No 25ug 25 mcg, Slow IV Push, Q5MIN PRN, 4 doses, Starting on Thu10/12/24 at 1129, Until Thu10/12/24 at 1509, Routine, Pain Scale 4-6, PACU [facility] bupivacaine (preserv free) (SENSORCAIN E MPF) 0.25 % (2.5 mg/mL) injection 10-12 17:13: 00 10-12 17:49 :15 No PRN, Starting on Thu10/12/24 at 1113, Until Thu10/12/24 at 1149, Routine, Intra-op [facility] methylPREDN ISolone acetate (DEPO-MEDRO L) injection 10-12 17:12: 00 10-12 17:49 :15 No PRN, Starting on Thu10/12/24 at 1112, Until Thu10/12/24 at 1149, Routine, Intra-op [facility] vancomycin (VANCOCIN) 1 g in sodium chloride 0.9 % irrigation 10-12 15:49: 00 10-12 17:49 :14 No PRN, Starting on Thu10/12/24 at 0949, Until Thu10/12/24 at 1149, 1,000 mL, Intra-op [facility] thrombin topical solution 10-12 15:49: 00 10-12 17:49 :14 No PRN, Starting on Thu10/12/24 at 0949, Until Thu10/12/24 at 1149, Routine, Intra-op [facility] lidocaine-e pinephrine (XYLOCAINE WITH EPINEPHRINE ) 0.5 %-1:200,000 injection 10-12 15:40: 00 10-12 17:49 :14 No PRN, Starting on Thu10/12/24 at 0940, Until Thu10/12/24 at 1149, Routine, Intra-op [facility] docusate 100 mg capsule 10-12 00:00: 00 10-27 04:59 :00 Yes [id number] 100mg Take 1 capsule by mouth in the morning for 14 days. Take with a full glass of water. [facility] methocarbam oL 500 mg tablet 10-12 00:00: 00 10-27 04:59 :00 Yes [id number] 500mg Take 1 tablet by mouth 4 (four) times daily for 14 days. Indication s: a uncontroll ed muscle contractio n with pain [facility] HYDROcodone -acetaminop hen 5-325 mg tablet 2025-0 3-05 00:00: 00 10-20 04:59 :00 Yes [id number] 1{tbl} Take 1 tablet by mouth every 4 (four) hours as needed for Pain (scale 4-6) or Pain (scale 7-10) for up to 7 days. Indication s: acute pain [facility] traMADoL 50 mg tablet 2-20 00:00: 00 10-07 05:59 :00 No [id number] 50mg Take 1 tablet by mouth every 6 (six) hours as needed for Pain (scale 4-6) for up to 7 days. Indication s: acute pain [facility] methylPREDN ISolone (MEDROL, MICHAEL,) 4 mg tablets -12 00:00: 00 Yes [id number] Take by mouth SEE-INSTRU CTIONS. follow package directions [facility] gabapentin 300 mg capsule - 00:00: 00 Yes [id number] 300mg Take 1 capsule by mouth 3 (three) times daily as needed for Pain (scale 7-10). [facility] Cyclobenzap rine HCl 10 MG Cyclobenzap rine HCl 10 MG 2-10 00:00: 00 No 1{table t} TID Cyclobenza huyen HCl 10 MG fentanyl PF (SUBLIMAZE (PF)) injection 50 mcg 09-09 01:15: 00 09-09 01:25 :00 No 50ug 50 mcg, Intramuscu lar, ONCE, 1 dose, On Thu09/08/24 at 1915, STAT [facility] HYDROcodone -acetaminop hen (NORCO 5) tablet 1 tablet 09-08 22:30: 00 09-08 22:55 :00 No 1{tbl} 1 tablet, Oral, ONCE, 1 dose, On Thu09/08/24 at 1630, YAHIR [facility] methocarbam oL (ROBAXIN) tablet 1,000 mg 09-08 22:30: 00 09-08 22:55 :00 No 1000mg 1,000 mg, Oral, ONCE, 1 dose, On Thu09/08/24 at 1630, YAHIR [facility] methocarbam oL 750 mg tablet 09-08 00:00: 00 Yes [id number] 750mg Take 1 tablet by mouth every 6 (six) hours as needed for Pain (scale 7-10). [facility] Nystatin 138748 UNIT/ML Nystatin 118597 UNIT/ML 11-30 00:00: 00 No 4{ml} QID Nystatin [id number] UNIT/ML clomiPHENE Citrate 50 MG clomiPHENE Citrate 50 MG 3 00:00: 00 No QD clomiPHENE Citrate 50 MG PRAVASTATIN SODIUM (PRAVASTATI N ORAL) 03-27 15:15: 56 Yes 5mg Take by mouth. [facility] glipiZIDE XL (GLUCOTROL XL) 10 mg 24 hr tablet 03-27 15:15: 56 Yes 10mg Take 1 tablet by mouth daily with breakfast. [facility] predniSONE (DELTASONE) 10 mg tablet 03-27 15:15: 56 Yes 10mg Take 1 tablet by mouth in the morning. [facility] nitroglycer in (NITROSTAT) 0.4 mg sublingual tablet 03-27 00:00: [address] 1 tablet under the tongue every 5 (five) minutes as needed for Chest pain. [facility] traMADOL (ULTRAM) 50 mg tablet 03-27 00:00: 00 Yes 50mg Take 1 tablet by mouth every 6 (six) hours as needed for Pain (scale 4-6). [facility] Cholestyram ine 4 GM Cholestyram ine 4 [...] Flucelvax - multidose vial 2021-07-31 17:04:00 Completed [facility] Flucelvax - multidose vial Flucelvax - multidose vial 2021-07-31 17:04:00 Completed [facility] Flucelvax - multidose vial Flucelvax - multidose vial 2021-07-31 17:04:00 Completed [facility] Flucelvax - multidose vial Flucelvax - multidose vial 2021-07-31 17:04:00 Completed [facility] Flucelvax - multidose vial Flucelvax - multidose vial 2021-07-31 17:04:00 Completed [facility] Flucelvax - multidose vial Flucelvax - multidose vial 2021-07-31 17:04:00 Completed [facility] Flucelvax - multidose vial Flucelvax - multidose vial 2021-07-31 17:04:00 Completed [facility] Flucelvax - multidose vial Flucelvax - multidose vial 2021-07-31 17:04:00 Completed [facility] Flucelvax - multidose vial Flucelvax - multidose vial 2021-07-31 17:04:00 Completed [facility] Flucelvax - multidose vial Flucelvax - multidose vial 2021-07-31 17:04:00 Completed [facility] Flucelvax - multidose vial Flucelvax - multidose vial 2021-07-31 17:04:00 Completed [facility] Flucelvax - multidose vial Flucelvax - multidose vial 2021-07-31 17:04:00 Completed [facility] Flucelvax - multidose vial Flucelvax - multidose vial 2021-07-31 17:04:00 Completed [facility] Flucelvax - multidose vial Flucelvax - multidose vial 2021-07-31 17:04:00 Completed [facility] Flucelvax - multidose vial Flucelvax - multidose vial 2021-07-31 17:04:00 Completed [facility] Flucelvax - multidose vial Flucelvax - multidose vial 2021-07-31 17:04:00 Completed [facility] Flucelvax - multidose vial Flucelvax - multidose vial 2021-07-31 17:04:00 Completed [facility] Flucelvax - multidose vial Flucelvax - multidose vial 2021-07-31 17:04:00 Completed [facility] Flucelvax - multidose vial Flucelvax - multidose vial 2021-07-31 17:04:00 Completed [facility] Flucelvax - multidose vial Flucelvax - multidose vial 2021-07-31 17:04:00 Completed [facility] Flucelvax - multidose vial Flucelvax - multidose vial 2021-07-31 17:04:00 Completed [facility] Flucelvax - multidose vial Flucelvax - multidose vial 2021-07-31 17:04:00 Completed [facility] SARS-COV-2 COVID-19 PFIZER VACCINE 2021-03-18 00:00:00 Completed [facility] SARS-COV-2 COVID-19 PFIZER VACCINE 2021-02-25 00:00:00 Completed [facility] Flucelvax - single dose syringe Flucelvax - single dose syringe 2019-05-05 17:06:00 Completed [facility] Flucelvax - single dose syringe Flucelvax - single dose syringe 2019-05-05 17:06:00 Completed [facility] Flucelvax - single dose syringe Flucelvax - single dose syringe 2019-05-05 17:06:00 Completed [facility] Flucelvax - single dose syringe Flucelvax - single dose syringe 2019-05-05 17:06:00 Completed [facility] Flucelvax - single dose syringe Flucelvax - single dose syringe 2019-05-05 17:06:00 Completed [facility] Flucelvax - single dose syringe Flucelvax - single dose syringe 2019-05-05 17:06:00 Completed [facility] Flucelvax - single dose syringe Flucelvax - single dose syringe 2019-05-05 17:06:00 Completed [facility] Flucelvax - single dose syringe Flucelvax - single dose syringe 2019-05-05 17:06:00 Completed [facility] Flucelvax - single dose syringe Flucelvax - single dose syringe 2019-05-05 17:06:00 Completed [facility] Flucelvax - single dose syringe Flucelvax - single dose syringe 2019-05-05 17:06:00 Completed [facility] Flucelvax - single dose syringe Flucelvax - single dose syringe 2019-05-05 17:06:00 Completed [facility] Flucelvax - single dose syringe Flucelvax - single dose syringe 2019-05-05 17:06:00 Completed [facility] Flucelvax - single dose syringe Flucelvax - single dose syringe 2019-05-05 17:06:00 Completed [facility] Flucelvax - single dose syringe Flucelvax - single dose syringe 2019-05-05 17:06:00 Completed [facility] Flucelvax - single dose syringe Flucelvax - single dose syringe 2019-05-05 17:06:00 Completed [facility] Flucelvax - single dose syringe Flucelvax - single dose syringe 2019-05-05 17:06:00 Completed [facility] Flucelvax - single dose syringe Flucelvax - single dose syringe 2019-05-05 17:06:00 Completed [facility] Flucelvax - single dose syringe Flucelvax - single dose syringe 2019-05-05 17:06:00 Completed [facility] Flucelvax - single dose syringe Flucelvax - single dose syringe 2019-05-05 17:06:00 Completed [facility] Flucelvax - single dose syringe Flucelvax - single dose syringe 2019-05-05 17:06:00 Completed [facility] Flucelvax - single dose syringe Flucelvax - single dose syringe 2019-05-05 17:06:00 Completed [facility] Flucelvax - single dose syringe Flucelvax - single dose syringe 2019-05-05 17:06:00 Completed [facility] Flucelvax - single dose syringe Flucelvax - single dose syringe 2019-05-05 17:06:00 Completed [facility] Flucelvax (ccIIV4) - MDV - 0.5mL Flucelvax (ccIIV4) - MDV - 0.5mL Unknown Completed [facility] Flucelvax (ccIIV4) - SDS - 0.5mL Flucelvax (ccIIV4) - SDS - 0.5mL Unknown Completed [facility] Flucelvax (ccIIV4) - MDV - 0.5mL Flucelvax (ccIIV4) - MDV - 0.5mL Unknown Completed [facility] Flucelvax (ccIIV4) - SDS - 0.5mL Flucelvax (ccIIV4) - SDS - 0.5mL Unknown Completed [facility] Flucelvax (ccIIV4) - MDV - 0.5mL Flucelvax (ccIIV4) - MDV - 0.5mL Unknown Completed [facility] Flucelvax (ccIIV4) - SDS - 0.5mL Flucelvax (ccIIV4) - SDS - 0.5mL Unknown Completed [facility] Flucelvax (ccIIV4) - MDV - 0.5mL Flucelvax (ccIIV4) - MDV - 0.5mL Unknown Completed [facility] Flucelvax (ccIIV4) - SDS - 0.5mL Flucelvax (ccIIV4) - SDS - 0.5mL Unknown Completed [facility] Flucelvax (ccIIV4) - MDV - 0.5mL Flucelvax (ccIIV4) - MDV - 0.5mL Unknown Completed [facility] Flucelvax (ccIIV4) - SDS - 0.5mL Flucelvax (ccIIV4) - SDS - 0.5mL Unknown Completed [facility] Flucelvax (ccIIV4) - MDV - 0.5mL Flucelvax (ccIIV4) - MDV - 0.5mL Unknown Completed [facility] Flucelvax (ccIIV4) - SDS - 0.5mL Flucelvax (ccIIV4) - SDS - 0.5mL Unknown Completed [facility] Flucelvax (ccIIV4) - MDV - 0.5mL Flucelvax (ccIIV4) - MDV - 0.5mL Unknown Completed [facility] Flucelvax (ccIIV4) - SDS - 0.5mL Flucelvax (ccIIV4) - SDS - 0.5mL Unknown Completed [facility] Flucelvax (ccIIV4) - MDV - 0.5mL Flucelvax (ccIIV4) - MDV - 0.5mL Unknown Completed [facility] Flucelvax (ccIIV4) - SDS - 0.5mL Flucelvax (ccIIV4) - SDS - 0.5mL Unknown Completed [facility] Flucelvax (ccIIV4) - MDV - 0.5mL Flucelvax (ccIIV4) - MDV - 0.5mL Unknown Completed [facility] Flucelvax (ccIIV4) - SDS - 0.5mL Flucelvax (ccIIV4) - SDS - 0.5mL Unknown Completed [facility] Flucelvax (ccIIV4) - MDV - 0.5mL Flucelvax (ccIIV4) - MDV - 0.5mL Unknown Completed [facility] Flucelvax (ccIIV4) - SDS - 0.5mL Flucelvax (ccIIV4) - SDS - 0.5mL Unknown Completed [facility] Flucelvax (ccIIV4) - MDV - 0.5mL Flucelvax (ccIIV4) - MDV - 0.5mL Unknown Completed [facility] Flucelvax (ccIIV4) - SDS - 0.5mL Flucelvax (ccIIV4) - SDS - 0.5mL Unknown Completed [facility] Fluad (IIV) - SDS - 0.5mL Fluad (IIV) - SDS - 0.5mL Unknown Completed [facility] Flucelvax - multidose vial Flucelvax - multidose vial Unknown Completed [facility] Flucelvax - single dose syringe Flucelvax - single dose syringe Unknown Completed [facility] Flucelvax - multidose vial Flucelvax - multidose vial Unknown Completed [facility] Flucelvax - single dose syringe Flucelvax - single dose syringe Unknown Completed [facility] Flucelvax - multidose vial Flucelvax - multidose vial Unknown Completed [facility] Flucelvax - single dose syringe Flucelvax - single dose syringe Unknown Completed [facility] Flucelvax - multidose vial Flucelvax - multidose vial Unknown Completed [facility] Flucelvax - single dose syringe Flucelvax - single dose syringe Unknown Completed [facility] Flucelvax - multidose vial Flucelvax - multidose vial Unknown Completed [facility] Flucelvax - single dose syringe Flucelvax - single dose syringe Unknown Completed [facility] Flucelvax - multidose vial Flucelvax - multidose vial Unknown Completed [facility] Flucelvax - single dose syringe Flucelvax - single dose syringe Unknown Completed [facility] Flucelvax - multidose vial Flucelvax - multidose vial Unknown Completed [facility] Flucelvax - single dose syringe Flucelvax - single dose syringe Unknown Completed [facility] Flucelvax - multidose vial Flucelvax - multidose vial Unknown Completed [facility] Flucelvax - single dose syringe Flucelvax - single dose syringe Unknown Completed [facility] Flucelvax - multidose vial Flucelvax - multidose vial Unknown Completed [facility] Flucelvax - single dose syringe Flucelvax - single dose syringe Unknown Completed [facility] Vital Signs Vital Name Observation Time Observation Value Comments Migue zhao Heart rate 2024-10-12 18:40:00 81 /min [facility] Oxygen saturation in Arterial blood by Pulse oximetry 2024-10-12 18:40:00 96 /min [facility] Systolic blood pressure 2024-10-12 18:25:00 154 mm[Hg] [facility] Diastolic blood pressure 2024-10-12 18:25:00 82 mm[Hg] [facility] Respiratory rate 2024-10-12 18:25:00 18 /min [facility] Body temperature 2024-10-12 17:40:00 36.28 Bela [facility] Body height 2024-10-12 13:59:00 185.4 cm [facility] Body weight 2024-10-12 13:59:00 94.9 kg [facility] BMI 2024-10-12 13:59:00 27.60 kg/m2 [facility] Systolic blood pressure 2024-10-12 13:59:00 141 mm[Hg] [facility] Diastolic blood pressure 2024-10-12 13:59:00 75 mm[Hg] [facility] Heart rate 2024-10-12 13:59:00 76 /min [facility] Body temperature 2024-10-12 13:59:00 36.44 Bela [facility] Respiratory rate 2024-10-12 13:59:00 18 /min [facility] Body height 2024-10-12 13:59:00 185.4 cm [facility] Body weight 2024-10-12 13:59:00 94.9 kg [facility] BMI 2024-10-12 13:59:00 27.60 kg/m2 [facility] Oxygen saturation in Arterial blood by Pulse oximetry 2024-10-12 13:59:00 97 /min [facility] Respiratory rate 2024-09-29 18:22:00 16 /min [facility] Body height 2024-09-29 18:22:00 185.4 cm [facility] Body weight 2024-09-29 18:22:00 97.523 kg [facility] BMI 2024-09-29 18:22:00 28.37 kg/m2 [facility] Body height 2024-09-21 19:28:00 [facility] 2024-09-21 19:28:00 97[facility]523 [facility] 2024-09-21 19:28:00 28.37 kg/m2 [facility] height 2024-09-19 11:20:00 73 [in_i] Commo n [facility] weight 2024-09-19 11:20:00 220 [lb_av] Comm on [facility] bmi 2024-09-19 11:20:00 29.02 kg/m2 Comm on [facility] Heart rate 2024-09-09 01:44:00 75 /min [facility] Respiratory rate 2024-09-09 01:44:00 16 /min [facility] Oxygen saturation in Arterial blood by Pulse oximetry 2024-09-09 01:44:00 96 /min [facility] Systolic blood pressure 2024-09-09 01:00:00 157 mm[Hg] [facility] Diastolic blood pressure 2024-09-09 01:00:00 76 mm[Hg] [facility] Body temperature 2024-09-08 22:13:00 36.78 Bela [facility] Body height 2024-09-08 22:13:00 188 cm [facility] Body weight 2024-09-08 22:13:00 97.523 kg [facility] BMI 2024-09-08 22:13:00 27.60 kg/m2 [facility] height 2024-09-07 16:20:00 73 [in_i] Commo n [facility] weight 2024-09-07 16:20:00 220 [lb_av] Comm on [facility] bmi 2024-09-07 16:20:00 29.02 kg/m2 Comm on [facility] height 2024-06-20 14:20:00 73 [in_i] Commo n [facility] weight 2024-06-20 14:20:00 219.6 [lb_av] Co mmon [facility] temperature 2024-06-20 14:20:00 98.4 [degF] Com mon [facility] bmi 2024-06-20 14:20:00 28.97 kg/m2 Comm on [facility] oximetry 2024-06-20 14:20:00 97 % Commo n [facility] respiratory rate 2024-06-20 14:20:00 16 /min Common [facility] blood pressure systolic 2024-06-20 14:20:00 154 mm[Hg] [facility] blood pressure diastolic 2024-06-20 14:20:00 75 mm[Hg] Common [facility] height 2024-03-07 16:00:00 73 [in_i] Commo n [facility] weight 2024-03-07 16:00:00 220 [lb_av] Comm on [facility] bmi 2024-03-07 16:00:00 29.02 kg/m2 Comm on [facility] height 2023-12-01 16:00:00 73 [in_i] Commo n [facility] weight 2023-12-01 16:00:00 220 [lb_av] Comm on [facility] bmi 2023-12-01 16:00:00 29.02 kg/m2 Comm on [facility] height 2023-09-30 14:00:00 73 [in_i] Commo n [facility] weight 2023-09-30 14:00:00 220.2 [lb_av] Co mmon [facility] temperature 2023-09-30 14:00:00 97.9 [degF] Com mon [facility] bmi 2023-09-30 14:00:00 29.05 kg/m2 Comm on [facility] oximetry 2023-09-30 14:00:00 99 % Commo n [facility] respiratory rate 2023-09-30 14:00:00 18 /min Common [facility] blood pressure systolic 2023-09-30 14:00:00 146 mm[Hg] Common [facility] blood pressure diastolic 2023-09-30 14:00:00 68 mm[Hg] [facility] height 2023-08-25 13:20:00 73 [in_i] Commo n [facility] weight 2023-08-25 13:20:00 220 [lb_av] Comm on [facility] bmi 2023-08-25 13:20:00 29.02 kg/m2 Comm on [facility] height 2023-05-21 16:00:00 73 [in_i] Commo n [facility] weight 2023-05-21 16:00:00 217.0 [lb_av] Co mmon [facility] temperature 2023-05-21 16:00:00 98.8 [degF] Com mon [facility] bmi 2023-05-21 16:00:00 28.63 kg/m2 Comm on [facility] oximetry 2023-05-21 16:00:00 95 % Commo n [facility] respiratory rate 2023-05-21 16:00:00 16 /min Common [facility] blood pressure systolic 2023-05-21 16:00:00 139 mm[Hg] Common [facility] blood pressure diastolic 2023-05-21 16:00:00 77 mm[Hg] Common [facility] height 2023-02-11 15:20:00 73 [in_i] Commo n [facility] weight 2023-02-11 15:20:00 214.0 [lb_av] Co mmon [facility] temperature 2023-02-11 15:20:00 97.4 [degF] Com [facility] bmi 2023-02-11 15:20:00 28.23 kg/m2 Comm on [facility] oximetry 2023-02-11 15:20:00 95 % Commo n [facility] respiratory rate 2023-02-11 15:20:00 16 /min Common [facility] blood pressure systolic 2023-02-11 15:20:00 133 mm[Hg] Common [facility] blood pressure diastolic 2023-02-11 15:20:00 79 mm[Hg] Common [facility] height 2022-09-15 16:00:00 73 [in_i] Commo n [facility] weight 2022-09-15 16:00:00 227.8 [lb_av] Co mmon [facility] temperature 2022-09-15 16:00:00 97.3 [degF] Com [facility] bmi 2022-09-15 16:00:00 30.05 kg/m2 Comm on [facility] oximetry 2022-09-15 16:00:00 95 % Commo n [facility] respiratory rate 2022-09-15 16:00:00 16 /min Common [facility] blood pressure systolic 2022-09-15 16:00:00 134 mm[Hg] Common [facility] blood pressure diastolic 2022-09-15 16:00:00 79 mm[Hg] Common [facility] height 2022-09-15 16:00:00 73 [in_i] Commo n [facility] weight 2022-09-15 16:00:00 227.8 [lb_av] Co mmon [facility] temperature 2022-09-15 16:00:00 97.3 [degF] Com mon [facility] bmi 2022-09-15 16:00:00 30.05 kg/m2 Comm on [facility] oximetry 2022-09-15 16:00:00 95 % Commo n [facility] respiratory rate 2022-09-15 16:00:00 16 /min Common [facility] blood pressure systolic 2022-09-15 16:00:00 134 mm[Hg] Common [facility] blood pressure diastolic 2022-09-15 16:00:00 79 mm[Hg] Common [facility] height 2022-09-03 17:00:00 73 [in_i] Commo n [facility] weight 2022-09-03 17:00:00 225.4 [lb_av] Co mmon [facility] temperature 2022-09-03 17:00:00 98.6 [degF] Com [facility] bmi 2022-09-03 17:00:00 29.73 kg/m2 Comm on [facility] oximetry 2022-09-03 17:00:00 99 % Commo n [facility] respiratory rate 2022-09-03 17:00:00 18 /min Common [facility] blood pressure systolic 2022-09-03 17:00:00 136 mm[Hg] Common [facility] blood pressure diastolic 2022-09-03 17:00:00 80 mm[Hg] Common [facility] height 2022-06-16 16:00:00 73 [in_i] Commo n [facility] weight 2022-06-16 16:00:00 220 [lb_av] Comm on [facility] temperature 2022-06-16 16:00:00 97.5 [degF] Com [facility] bmi 2022-06-16 16:00:00 29.02 kg/m2 Comm on [facility] oximetry 2022-06-16 16:00:00 96 % Commo n [facility] respiratory rate 2022-06-16 16:00:00 16 /min [facility] blood pressure systolic 2022-06-16 16:00:00 160 mm[Hg] [facility] blood pressure diastolic 2022-06-16 16:00:00 90 mm[Hg] [facility] blood pressure diastolic 2021-07-18 17:00:00 91 mm[Hg] [facility] height 2021-07-18 17:00:00 73 [in_i] Commo n [facility] weight 2021-07-18 17:00:00 225 [lb_av] Comm on [facility] temperature 2021-07-18 17:00:00 97.9 [degF] Com mon [facility] bmi 2021-07-18 17:00:00 29.68 kg/m2 Comm on [facility] oximetry 2021-07-18 17:00:00 99 % Commo n [facility] respiratory rate 2021-07-18 17:00:00 18 /min [facility] blood pressure systolic 2021-07-18 17:00:00 146 mm[Hg] [facility] Procedures Procedure Date / Time Performed Performing Clinician Source POCT GLUCOSE (AUTOMATED) 2024-10-12 17:47:00 Pedro Bah [facility] POCT GLUCOSE (AUTOMATED) 2024-10-12 17:47:00 Pedro Bah [facility] XR LUMBAR SPINE 1 VW 2024-10-12 17:07:50 Pedro Bah [facility] XR LUMBAR SPINE 1 VW 2024-10-12 17:07:50 Pedro Bah [facility] [id number] - [place] B[place] FACETECTOMY & FORAMOTOMY 1 VRT SGM LUMBAR 2024-10-12 14:39:00 Pedro Bah [facility] [id number] - [place] FACETECTOMY&FORAMOT 1 VRT SGM EA ADDL SGM 2024-10-12 14:39:00 Pedro Bah [facility] [id number] - [place] LAMNOTMY INCL W/DCMPRSN NRV ROOT 1 INTRSPC LUMBR 2024-10-12 14:39:00 Pedro Bah [facility] HB ABO GROUPING 2024-10-12 13:52:00 Tico Ace [facility] HB ABO GROUPING 2024-10-12 13:52:00 Tico Ace [facility] POCT GLUCOSE (AUTOMATED) 2024-10-12 13:09:00 Pedro Bah [facility] POCT GLUCOSE (AUTOMATED) 2024-10-12 13:09:00 Pedro Bah [facility] MR LUMBAR SPINE WO CONTRAST 2024-09-21 22:57:00 Betzaida Wheat [facility] URINALYSIS 2024-09-09 00:40:00 Ashlyn Cardoso [facility] CT LUMBAR SPINE WO CONTRAST 2024-09-08 23:55:59 Ashlyn Cardoso [facility] PVR 2023-09-30 00:00:00 [facility] Encounters Start Date/Time End Date/Time Encounter Type Admission Type Attending [facility] Care Facility Care Department Encounter ID Source 2024-11-03 11:22[id number] [facility] 2024-09-27 08:50[facility]00 [facility] [id number] [facility] 2024-09-15 09:00:01 [facility] [id number] [facility] 2024-05-24 12:07:00 [facility] [id number] [facility] 2023-10-12 11:49:00 Outpatient Fergus, Mary STLMLC STLMLC [id number] [facility] 2023-01-13 08:24:01 Outpatient Fergus, Mary STLMLC STLMLC [id number] [facility] 2022-12-16 14:33:02 Outpatient Fergus, Mary STLMLC STLMLC [id number] [facility] 2022-11-11 08:03:02 Outpatient Fergus, Mary STLMLC STLMLC [id number] [facility] 2022-10-13 15:31:02 Outpatient Fergus, Mary STLMLC STLMLC [id number] [facility] 2022-09-16 11:26:01 Outpatient Fergus, Mary STLMLC STLMLC [id number] [facility] 2022-09-11 09:33:00 Outpatient Fergus, Mary STLMLC STLMLC [id number] [facility] 2022-06-13 09:11:01 Outpatient Fergus, Mary STLMLC STLMLC [id number] [facility] 2022-03-27 11:28:02 Outpatient Fergus, Mary STLMLC STLMLC [id number] [facility] 2022-03-17 09:41:01 Outpatient Fergus, Mary STLMLC STLMLC [id number] [facility] 2022-03-11 11:41:02 Outpatient Fergus, Mary STLMLC STLMLC [id number] [facility] 2022-03-06 14:55:01 Outpatient Fergus, Mary STLMLC STLMLC [id number] [facility] 2022-02-24 08:36:04 Outpatient Fergus, Mary STLMLC STLMLC [id number] [facility] 2022-02-07 11:10:02 Outpatient Mary Alberto STBENJAMIN STLMLC [id number] [facility] 2021-12-23 16:24:01 Outpatient Mary Alberto STBENJAMIN STLMLC [id number] [facility] 2021-10-21 14:49:01 Outpatient Mary Alberto STBENJAMIN STLMLC [id number] [facility] 2021-09-04 14:26:58 Outpatient Mary Alberto STBENJAMIN STLMLC [id number] [facility] 2021-09-04 14:23:10 Outpatient Mary Alberto STHEATHERLC STLMLC [id number] [facility] 2024-11-11 00:00:00 2024-11-11 16:17:23 [facility] 1.2.840.114 350.1.13.10 4.2.7.2.686 [id number] [facility] 2024-11-11 00:00:00 2024-11-11 00:00:00 OFFICE VISIT ESTAB PT LEVEL 4 STLMLC STLMLC [id number] [facility] 2024-11-03 00:00:00 2024-11-04 09:05:04 Telephone Olvin [facility] MEDICAL OFFICE BUILDING 1.2.840.114 350.1.13.10 4.2.7.2.686 [id number] [facility] 2024-10-31 00:00:00 2024-10-31 16:23:42 Telephone Olvin [facility] MEDICAL OFFICE BUILDING 1.2.840.114 350.1.13.10 4.2.7.2.686 [id number] [facility] 2024-10-25 00:00:00 2024-10-25 00:00:00 (TEL) STLMLC STLMLC [id number] [facility] 2024-10-21 00:00:00 2024-10-21 00:00:00 ([facility]EL) [facility] [id number] [facility] 2024-10-12 06:54:00 2024-10-12 12:47:00 Outpatient R OLVIN [facility] [id number] [facility] 2024-10-12 06:54:00 2024-10-12 12:47:00 Hospital Encounter Olvin [facility] [place] 1.2840.114 350.1.13.10 4.2.7.2.686 [id number] [facility] 2024-10-12 08:40:00 2024-10-12 11:36:00 Surgery Olvin, [facility] [place] 1.2840.114 350.1.13.10 4.2.7.2.686 [id number] [facility] 2024-10-11 00:00:00 2024-10-11 00:00:00 (TEL) [facility] [id number] [facility] 2024-10-10 12:30:00 2024-10-10 12:45:00 Plate Maker Zinc Visit [facility], [facility] Lab Main Tico Ace [facility] Main [facility] NAL BUILDING 1.840.114 350.1.13.10 4.2.7.2.686 [id number] [facility] 2024-10-10 12:30:00 2024-10-10 12:30:00 Outpatient TICO GRADY [facility] [id number] [facility] 2024-09-29 13:15:00 2024-09-29 13:30:00 [facility] 1.840.114 350.1.13.10 4.2.7.2.686 [id number] [facility] 2024-09-29 00:00:00 2024-09-29 12:55:06 Prep For Surgery Pedro Bah [facility] 1.2.840.114 350.1.13.10 4.2.7.2.686 [id number] [facility] 2024-09-21 15:37:02 2024-09-21 23:59:00 Hospital Encounter Betzaida Wheat [facility] 1.2.840.114 350.1.13.10 4.2.7.2.686 [id number] [facility] 2024-09-21 14:00:00 2024-09-21 14:00:00 Office Visit Betzaida Wheat Julia [facility] MEDICAL OFFICE BUILDING 1.2.840.114 350.1.13.10 4.2.7.2.686 [id number] [facility] 2024-09-19 00:00:00 2024-09-19 00:00:00 OFFICE VISIT ESTAB PT LEVEL 3 STLMLC STLC [id number] [facility] 2024-09-09 00:00:00 2024-09-09 00:00:00 (TEL) [facility] [id number] [facility] 2024-09-08 16:15:00 2024-09-08 19:47:00 Emergency X EMIR CARDOSOIL [facility] ERT [id number] [facility] 2024-09-08 16:15:00 2024-09-08 19:47:00 Emergency AderibiVicki oneilbril [facility] 1.2.840.114 350.1.13.10 4.2.7.2.686 [id number] [facility] 2024-09-07 00:00:00 2024-09-07 00:00:00 OFFICE VISIT ESTAB PT LEVEL 3 STLMLC STLMLC [id number] [facility] 2024-08-29 00:00:00 2024-08-29 00:00:00 (TEL) STLMLC STLMLC [id number] [facility] 2024-08-25 00:00:00 2024-08-25 00:00:00 (TEL) STLMLC STLMLC [id number] [facility] 2024-06-20 00:00:00 2024-06-20 00:00:00 OFFICE VISIT ESTAB PT LEVEL 4 STLMLC STLMLC [id number] [facility] 2024-03-07 00:00:00 2024-03-07 00:00:00 OFFICE VISIT ESTAB PT LEVEL 4 STLMLC STLMLC [id number] [facility] 2024-03-07 00:00:00 2024-03-07 00:00:00 (TEL) STLMLC STLMLC [id number] [facility] 2024-01-01 00:00:00 2024-01-01 00:00:00 (TEL) STLMLC STLMLC [id number] [facility] 2023-12-01 00:00:00 2023-12-01 00:00:00 OFFICE VISIT ESTAB PT LEVEL 4 STLMLC STLMLC [id number] [facility] 2023-10-30 00:00:00 2023-10-30 00:00:00 (TEL) STLMLC STLMLC [id number] [facility] 2023-10-26 00:00:00 2023-10-26 00:00:00 (TEL) STLMLC STLMLC [id number] [facility] 2023-09-30 00:00:00 2023-09-30 00:00:00 OFFICE VISIT ESTAB PT LEVEL 4 STLMLC STLMLC [id number] [facility] 2023-09-17 00:00:00 2023-09-17 00:00:00 (TEL) STLMLC STLMLC [id number] [facility] 2023-09-11 00:00:00 2023-09-11 00:00:00 (TEL) STLMLC STLMLC [id number] [facility] 2023-08-25 00:00:00 2023-08-25 00:00:00 OFFICE VISIT ESTAB PT LEVEL 3 STLMLC STLMLC [id number] [facility] 2023-06-11 00:00:00 2023-06-11 00:00:00 (TEL) STLMLC STLMLC [id number] [facility] 2023-05-21 00:00:00 2023-05-21 00:00:00 OFFICE VISIT ESTAB PT LEVEL 3 STLMLC STLMLC [id number] [facility] 2023-02-11 00:00:00 2023-02-11 00:00:00 OFFICE VISIT ESTAB PT LEVEL 4 STLMLC STLMLC [id number] [facility] 2023-02-09 00:00:00 2023-02-09 00:00:00 (TEL) STLMLC STLMLC [id number] [facility] 2022-12-25 00:00:00 2022-12-25 00:00:00 (TEL) STLMLC STLMLC [id number] [facility] 2022-12-16 00:00:00 2022-12-16 00:00:00 (TEL) STLMLC STLMLC [id number] [facility] 2022-10-21 00:00:00 2022-10-21 00:00:00 (TEL) STLMLC STLMLC [id number] [facility] 2022-10-13 00:00:00 2022-10-13 00:00:00 (TEL) STLMLC STLMLC [id number] [facility] 2022-09-30 00:00:00 2022-09-30 00:00:00 (NV) Nurse Visit STLMLC STLMLC [id number] [facility] 2022-09-17 00:00:00 2022-09-17 00:00:00 (TEL) STLMLC STLMLC [id number] [facility] 2022-09-15 00:00:00 2022-09-15 00:00:00 OFFICE VISIT ESTAB PT LEVEL 4 STLMLC STLMLC [id number] [facility] 2022-09-15 00:00:00 2022-09-15 00:00:00 INIT ANNUAL MCR WELLNESS VISIT STLMLC STLMLC [id number] [facility] 2022-09-10 00:00:00 2022-09-10 00:00:00 (TEL) STLMLC STLMLC [id number] [facility] 2022-09-03 00:00:00 2022-09-03 00:00:00 OFFICE VISIT EST PT LEVEL 3 STLMLC STLMLC [id number] [facility] 2022-07-29 00:00:00 2022-07-29 00:00:00 (TEL) STLMLC STLMLC [id number] [facility] 2022-07-22 00:00:00 2022-07-22 00:00:00 (NV) Nurse Visit STLMLC STLMLC [id number] [facility] 2022-07-15 00:00:00 2022-07-15 00:00:00 (NV) Nurse Visit STLMLC STLMLC [id number] [facility] 2022-07-09 00:00:00 2022-07-09 00:00:00 (TEL) STLMLC STLMLC [id number] [facility] 2022-07-08 00:00:00 2022-07-08 00:00:00 (NV) Nurse Visit STLMLC STLMLC [id number] [facility] 2022-07-01 00:00:00 2022-07-01 00:00:00 (TEL) STLMLC STLMLC [id number] [facility] 2022-07-01 00:00:00 2022-07-01 00:00:00 (NV) Nurse Visit STLMLC STLMLC [id number] [facility] 2022-06-26 00:00:00 2022-06-26 00:00:00 (TEL) STLMLC STLMLC [id number] [facility] 2022-06-25 00:00:00 2022-06-25 00:00:00 (TEL) STLMLC STLMLC [id number] [facility] 2022-06-24 00:00:00 2022-06-24 00:00:00 (NV) Nurse Visit STLMLC STLMLC [id number] [facility] 2022-06-17 00:00:00 2022-06-17 00:00:00 (NV) Nurse Visit STLMLC STLMLC [id number] [facility] 2022-06-16 00:00:00 2022-06-16 00:00:00 OFFICE VISIT ESTAB PT LEVEL 4 STLMLC STLMLC [id number] [facility] 2022-06-10 00:00:00 2022-06-10 00:00:00 (NV) Nurse Visit STLMLC STLMLC [id number] [facility] 2022-06-03 00:00:00 2022-06-03 00:00:00 (NV) Nurse Visit STLMLC STLMLC [id number] [facility] 2022-05-27 00:00:00 2022-05-27 00:00:00 (NV) Nurse Visit STLMLC STLMLC [id number] [facility] 2022-05-20 00:00:00 2022-05-20 00:00:00 (NV) Nurse Visit STLMLC STLMLC [id number] [facility] 2022-05-13 00:00:00 2022-05-13 00:00:00 (NV) Nurse Visit STLMLC STLMLC [id number] [facility] 2022-05-06 00:00:00 2022-05-06 00:00:00 (NV) Nurse Visit STLMLC STLMLC [id number] [facility] 2022-04-21 00:00:00 2022-04-21 00:00:00 ambulatory STLMLC STLMLC [id number] [facility] 2022-03-31 00:00:00 2022-03-31 00:00:00 ambulatory STLMLC STLMLC [id number] [facility] 2022-03-20 00:00:00 2022-03-20 00:00:00 ambulatory STLMLC STLMLC [id number] [facility] 2022-03-17 00:00:00 2022-03-17 00:00:00 ambulatory STLMLC STLMLC [id number] [facility] 2022-03-14 00:00:00 2022-03-14 00:00:00 ambulatory STLMLC STLMLC [id number] [facility] 2022-03-13 00:00:00 2022-03-13 00:00:00 ambulatory STLMLC STLMLC [id number] [facility] 2022-03-11 00:00:00 2022-03-11 00:00:00 ambulatory STLMLC STLMLC [id number] [facility] 2022-03-06 00:00:00 2022-03-06 00:00:00 ambulatory STLMLC STLMLC [id number] [facility] 2022-02-26 00:00:00 2022-02-26 00:00:00 ambulatory STLMLC STLMLC [id number] [facility] 2022-02-07 00:00:00 2022-02-07 00:00:00 ambulatory STLMLC STLMLC [id number] [facility] 2021-12-20 00:00:00 2021-12-20 00:00:00 ambulatory STLMLC STLMLC [id number] [facility] 2021-11-12 00:00:00 2021-11-12 00:00:00 ambulatory STLMLC STLMLC [id number] [facility] 2021-10-16 00:00:00 2021-10-16 00:00:00 ambulatory STLMLC STLMLC [id number] [facility] 2021-07-31 00:00:00 2021-07-31 00:00:00 ambulatory STLMLC STLMLC [id number] [facility] 2021-07-24 00:00:00 2021-07-24 00:00:00 (TEL) STLMLC STLMLC [id number] [facility] 2021-07-18 00:00:00 2021-07-18 00:00:00 OFFICE VISIT EST PT LEVEL 3 STL[facility] STL[facility]C [id number] [facility] Results Test Description Test Time Test Comments Results Result Co mments Source [facility] GLUCOSE (AUTOMATED)2024-10-12 17:48:33* Test Item Value Reference Range Interpretation Comme nts POCT GLU (test code = 8385490764) 202 mg/dL 70-110 H Lab Interpretation (test cod e = 30985-0) [facility] [id number] 17:07:58These images do not require a Radiology diagnostic report.[facility] 1 [id number] 17:07:58These images do not require a Radiology diagnostic report[facility] [id number] 14:00:00* Test Item Value Reference Range Interpretation Comme nts ABO & RH (test code = 20) B POSITIVE IAT (test code = 1185) Negative [facility] [id number] 14:00:00* Test Item Value Reference Range Interpretation Comme nts ABO & RH (test code = 20) B POSITIVE IAT (test code = 1185) Negative [facility] GLUCOSE (AUTOMATED)2024-10-12 13:13:55* Test Item Value Reference Range Interpretation Comme nts POCT GLU (test code = 3761937814) 144 mg/dL 70-110 H Lab Interpretation (test cod e = 45612-7) [facility]-10[facility]12 13:13:55* Test Item Value Reference Range Interpretation Comme nts POCT GLU (test code = 3169344412) 144 mg/dL 70-110 H Lab Interpretation (test cod e = 74262-8) [facility] wo [id number] 23:38:02 MR LUMBAR SPINE WO CONTRAST PROVIDED INDICATION: Back pain COMPARISON: CT lumbar spine 09/08/2024 TECHNIQUE: Multiplanar multisequence MRI of the lumbar spine was performedwithout the administration of gadolinium based intravenous contrast. FINDINGS: The lumbar spine curvature is normal. No acute fracture or dislocation. The vertebral bodies are normal in height and alignment. The backgroundmarrowsignal is unremarkable. ? The conus medullaris terminates at the level of T12. ?The cauda equinanerve roots are unremarkable. Level by level assessment: For the purposes of nomenclature, the last well-formed disc space will bereferred to as L5-S1. L1-L2: No significant degenerative changes. No significant canal stenosisor neural foraminal narrowing. L2-L3: Shallow disc bulge is noted with facet joint arthrosis andligamentum flavum thickening. These changes result in bilateral mildneuroforamen narrowing. No significant spinal canal stenosis. L3-L4: Diffuse disc bulge is noted with ligamentum flavum thickening andfacet joint arthrosis. These changes result in moderate spinal canalstenosis andmoderate to severe bilateral neuroforamen narrowing. L4-L5: Diffuse posterior disc bulge is noted with ligamentum flavumthickening, facet joint arthrosis and posterior epidural fat. These changesresult in moderate spinal canal stenosis and bilateral moderate neuralforamen narrowing L5-S1: Diffuse disc bulge is noted with facet joint arthrosis. Thesechanges causing bilateral mild neuroforamen narrowing. ?No significantspinal canal stenosis. There is possible annular tear at this level. The visualized paraspinal soft tissues are grossly unremarkable.[facility] [id number] 00:10:03CT LUMBAR SPINE WO CONTRAST HISTORY: ?Low back pain, cauda equina syndrome suspected COMPARISON: None. TECHNIQUE: Nonenhanced CT scan of the lumbar spine was done in multipledimensions. FINDINGS: Normal lumbar lordosis. The lumbar vertebral bodies are normal in height and in alignment. No facetsubluxation. No acute fractures. Mild degenerative changes of the lumbar spine seen. L3 subcentimetersclerotic focus seen, could represent a bone island. Incomplete fusion ofT12 posterior elements probably developmental. The sacrum and visualized pelvic bones are unremarkable. Mild aortoiliac calcifications seen. The visualized abdominal cavitycontents are otherwise unremarkable.[facility] 2022-06-16 00:00:00* Test Item Value Reference Range Interpretation Comme nts A1C (test code = 4548-4) 9.4 History and Physical Notes Date/Time Note Provider Source 2024-10-12 08:34:14 Neurosurgery Pre Operative History and Physical Note Date of Service: 10/12/2024 Andrés Sheriff is a 69 year old male who was interviewed and examined today in the DSU/holding area/operating room before induction of anesthesia. There have been no significant interval changes in the history or physical exam. See full H&P, copied below for completeness, for more details. Risks, benefits and alternatives to the procedure were reviewed with the patient again today, and pt voiced understanding of the condition present as well as the planned procedure(s) without questions and wishes to proceed. Informed consent was obtained. Diagnosis: lumbar radiculopathy, neurogenic claudication Planned procedure: L3-L5 laminectomy David Loya MD Neurosurgery, PGY-7 [facility] Inquiries, Page [phone] [facility] Inquiries, ([id number]) Chief Complaint: back pain, RLE pain HPI: Andrés Sheriff is a 69 year old gentleman, with PMH of DM2 and HTN, presenting to neurosurgery clinic for evaluation of low back and right leg pain. Symptoms initially started ~ 3 weeks ago with sudden onset. No known inciting event. He had sudden onset of severe pain in the right sided lower back radiating down the right lateral leg to the calf. Pain also radiates across the lower lumbar region and into the left side with prolonged standing. He is unable to stand more than 15 minutes without having to sit to rest due to pain. Additionally he notes nonspecific numbness, tingling, and weakness in both feet. He reports always being fit and active, and now having difficulty lifting the right leg and unable to walk without cane. Has been to ED twice. Tried treating with muscle relaxants without relief. History of Present Illness Past Medical History: Past Medical History: Diagnosis Date Diabetes Gastroparesis Hypertension Neuropathy Surgical History: No past surgical history on file. Review of Systems A 10 system ROM was negative apart from the positives noted in the HPI above. Physical Exam: BP (!) 141/75 | Pulse 76 | Temp 36.4 ?C (97.6 ?F) (Tympanic) | Resp 18 | Ht 1.854 m (6' 1") | Wt 94.9 kg (209 lb 3.5 oz) | SpO2 97% | BMI 27.60 kg/m? Appearance: patient alert, oriented x3, and in no acute distress ENT: PERRL bilaterally, EOMI bilaterally, Face symmetric, Tongue midline Extremities: extremities, peripheral pulses and reflexes normal, no edema, redness or tenderness in the calves or thighs Musculoskeletal: Lumbar Spine: paraspinal palpable pain, full range of motion Neuro: BUE D 5/5 B 5/5 T 5/5 WE 5/5 I 5/5 RLE I 4+/5 Q 5/5 H 5/5 TA 4/5 G4/5 EHL 4/5 LLE I 5/5 Q 5/5 H 5/5 TA 4+/5 G4+/5 EHL 4+/5 No pathological reflexes No Osorio's / No clonus Antalgic gait, limp- using cane Imagin09/21/24 MR Lumbar spine Multilevel degenerative more pronounced at L3-L4 where disc bulge, facet arthrosis and ligamentum flavum thickening causing moderate spinal canal stenosis, moderate to severe bilateral neural foramen narrowing and possible pressure to the exiting nerve roots. Additional degenerative changes as described. CT Lumbar spine wo contrast 09/08/24: FINDINGS: Normal lumbar lordosis. The lumbar vertebral bodies are normal in height and in alignment. No facet subluxation. No acute fractures. Mild degenerative changes of the lumbar spine seen. L3 subcentimeter sclerotic focus seen, could represent a bone island. Incomplete fusion of T12 posterior elements probably developmental. The sacrum and visualized pelvic bones are unremarkable. Mild aortoiliac calcifications seen. The visualized abdominal cavity contents are otherwise unremarkable. IMPRESSION No acute fractures or traumatic malalignment in the lumbar spine, if there is a concern for cauda equina syndrome, an MRI can be obtained. Assessment/Plan: Andrés Sheriff is a 69 year old male with severe low back pain and R L5 radiculopathy. Patient with intractable pain and states his right leg is weak and giving out on him. Given worsening intractable pain and weakness, he wishes to proceed with semiurgent surgery L3-5 lami/foraminotomies, possible R L3-4 microdisc. All risks benefits and alternatives discussed in detail including bleeding, infection, numbness, weakness or nerve injury, CSF leakage and other. Patient verbalized understanding and wishes to proceed JD Donahue-C Neurosurgery Faculty This encounter was performed in conjunction with MAGNUS: Holley MILES. I saw and evaluated the patient and performed the substantive portion of this visit based upon . MDM: Medical Decision Making for which I performed in its entirety. 1. Lumbar radiculopathy Scheduled for L3-5 lami/foraminotomies/possible R L3-4 microdisc. All risks benefits and alternatives discussed in detail including bleeding, infection, numbness, weakness or nerve injury, CSF leakage and other. Patient verbalized understanding and wishes to proceed - traMADoL 50 mg tablet; Take 1 tablet by mouth every 6 (six) hours as needed for Pain (scale 4-6) for up to 7 days. Indications: acute pain Dispense: 28 tablet; Refill: 0 I have reviewed and verified the documentation for this encounter and assume responsibility for the services by signing the medical record. MOGRAPH SUPERVISOR Associated attestation - Pedro Bah MD - 10/12/2024 8:51 AM SEISMOGRAPH SUPERVISOR I agree with the note by Dr. Loya with no changes. [facility] Notes Date/Time Note Provider Source 2024-11-11 16:15:29 I spoke with patient and advised of refill, patient allergic to NSAID's and unable to take ibuprofen, advised to alternate tramadol with tylenol and take only as needed, verbalized understanding and appreciation. Magalis Melgar RN [facility] 2024-11-11 15:51:53 Will provide limited and final refill of tramadol and valium. Alternate tramadol with ibuprofen 600 mg every 6 hours. [facility] 2024-11-11 14:25:07 Routing to provider for recommendations [facility] 2024-11-11 13:52:37 Andrés Sheriff is a 69 year old male Patient requesting a refill on his Valium and Tramadol states his back is still hurting and his leg is starting to switch again. States he has an appt with Dr Bah on 11/28 please send scripts to [address] Viridiana Purvis [facility] 2024-11-04 09:04:21 Patient was notified via voicemail. Magalis Melgar RN [facility] 2024-11-03 15:46:43 I'll provide a short course of tramadol to pharmacy on file. T [facility] 2024-11-03 12:21:38 Routing to provider for review [facility] 2024-11-03 11:58:17 [id number] Andrés Sheriff is a 69 year old male [phone] (home) Patient states Diazapam(Valium) has helped tremendously with the leg pain but patient states he still has lower back pain and would like to see if something can be prescribed for this pain. [facility] [address] [place] [address] N LEWIS Please review and advise. Thank you. T Jocelynn Prajapati [facility] 2024-10-31 16:20:39 I spoke with patient and advised of medication sent to pharmacy, will monitor symptoms with Valium this evening and will call back tomorrow if condition persist or worsens, patient verbalized understanding and appreciation. T Magalis Melgar RN [facility] 2024-10-31 16:18:24 Valium 5 mg sent to pharmacy on file. If symptoms persist may schedule w/DATA REVIEW SPECIALIST. [facility] 2024-10-31 15:59:57 I spoke with patient who states entire body is shaking started two days ago, unable to stand due to the shaking in legs and discomfort, states was doing really well then started with the shaking tremor like episodes, denies weakness or numbness, denies urinary or bowel incontinence, denies fever, has been drinking a lot of water and staying hydrated, will consult with provider and call back with further recommendations. [facility] 2024-10-31 15:20:42 Andrés Sheriff is a 69 year old male DOS:10/12/[address] Bah. The patient reports experiencing severe pain, indicating that he is unable to move, walk, or stand due to the intensity of the discomfort in his legs. He also notes that his legs and arms are shaking.patient would like to speak to nurse no other symptoms reported please advise. Ph.[phone] Lucille Moss V [facility] 2024-10-12 09:48:33 BRIEF OPERATIVE NOTE Date of Surgery: 10/12/2024 Surgeons and Role: * Pedro Bah MD - Primary * David Loya MD - Resident - Assisting Pre-Op Diagnosis: Lumbar radiculopathy [M54.16] Post-Op Diagnosis Codes: * Lumbar radiculopathy [M54.16] Procedures: Procedure(s) (LRB): POSTERIOR LAMINECTOMY (Bilateral) CPT: 73118, 11432, 85408, Any Complications Encounters: none Estimated Blood Loss: 100cc Specimens Removed: * No specimens in log * * No implants in log * Patient's Condition: Stable to PACU Findings: Significant canal stenosis, well decompressed foramen afterwards Any other important information: None, dermabond for skin Please see dictated operative report for additional detail. [facility] 2024-10-10 12:30:00 Summary: Initial TS complete Images from the original note were not included. Venipuncture collection performed by clean technique on the left anticubitus. Total of 1 attempts were made. Slight pressure and a bandage/dressing were applied to the site(s). The patient experienced no complications. The following specimens were processed according to instructions and sent to [facility] laboratories per lab order on 10/10/2024 : LT BLUE SST RED LAV 1 PPT DK GREEN (LiHep) DK GREEN (SodH) CERVANTES DK BLUE (K2) DK BLUE (S) ACD Blood Culture NIPT/NTD [facility] 2024-09-08 19:46:18 Patient is awake and alert, oriented x4, speech is clear and appropriate, ambulatory with a steady gait, wheelchair to lobby. Advised to seek medical attention for new/prolonged/worsening of symptoms. Respirations even and unlabored, no distress. A Cruz RN [facility] 2024-09-08 17:53:35 Pt urinated prior to room placement, pt given water. [facility] 2024-09-08 16:11:04 CC: patient presents to the ER with complaints of right leg numbness that began August 30. Patient states he was evaluated by Wes in [place]. Patient states pain radiates from hip to heel and states he cannot put pressure on the foot. Awake, alert, oriented, resp reg unlabored, skin warm and dry, color appropriate for race, moves all ext without difficulty, using wheelchair. Normally uses cane. Appears in no distress. MOGRAPH SUPERVISOR Radha Vargas RN [facility]
[2024-11-21] MEDS ORDERED: DIPHENHYDRAMINE 50 MG/ML VIAL ONE (03:15)
[2024-11-21] MEDS ORDERED: FAMOTIDINE 20 MG/2 ML VIAL IV ONE (03:15)
[2024-11-21] MEDS ORDERED: METHYLPREDNISOLONE 125 MG INJ ONE (03:15)
--- NOTE | 2024-11-21 06:16 | EDPHYS ---
Physician Documentation [facility] Name: Neftali Gill Jr Age: 69 yrs Sex: Male : 1955 Arrival Date: 11/21/2024 Time: 03:04 Bed 4 Private MD: ED Physician Clint Galindo HPI: 11/21 03:08 This 69 yrs old Black Male presents to ER via Unassigned with complaints of tongue sp4 swelling. 11/22 02:45 69-year-old male with past medical history of angioedema presents with complaint of sp4 acute tongue swelling. Patient is familiar to me from prior visits. Historical: - Allergies: 11/21 03:11 ACES; dd2 03:11 Cephalexin; dd2 03:11 Diovan; dd2 03:11 Lisinopril; dd2 03:11 nebivolol HCl; dd2 03:11 NSAIDS; dd2 03:11 valsartan; dd2 - PMHx: 03:11 ANGIOEDEMA; GERD; High Cholesterol; Hypertension; NIDDM; dd2 - PSHx: 03:11 Cholecystectomy; TURP; dd2 - Immunization history:: Adult Immunizations up to date. - Infectious Disease History:: Denies. - Social history:: Smoking status: Patient denies any tobacco usage or history of. - Family history:: not pertinent. ROS: 11/22 02:45 Constitutional: Negative for fever, chills, and weight loss, positive for acute tongue sp4 swelling All other systems are negative, Exam: 02:45 Constitutional: This is a well developed, well nourished patient who is awake, alert, sp4 and in no acute distress. Head/Face: Normocephalic, atraumatic. Eyes: Pupils equal round and reactive to light, extra-ocular motions intact. Lids and lashes normal. Conjunctiva and sclera are not injected. Cornea within normal limits. Periorbital areas with no swelling, redness, or edema. ENT: Nares patent. No nasal discharge, no septal abnormalities noted. Tympanic membranes are normal and external auditory canals are clear. Oropharynx with no redness, swelling, or masses, exudates, or evidence of obstruction, uvula midline. Mucous membranes moist. Positive for mild tongue swelling without protrusion from the mouth Neck: Trachea midline, no thyromegaly or masses palpated, and no cervical lymphadenopathy. Supple, full range of motion without nuchal rigidity, or vertebral point tenderness. Chest/axilla: Normal chest wall appearance and motion. Nontender with no deformity. No lesions are appreciated. Cardiovascular: Regular rate and rhythm with a normal S1 and S2. No gallops, murmurs, or rubs. Normal PMI, no JVD. No pulse deficits. Respiratory: Lungs have equal breath sounds bilaterally, clear to auscultation and percussion. No rales, rhonchi or wheezes noted. No increased work of breathing, no retractions or nasal flaring. Abdomen/GI: Soft, with normal bowel sounds. No distension or tympany. No guarding or rebound. No evidence of tenderness throughout. Back: No spinal tenderness. No costovertebral tenderness. Skin: Warm, dry with normal turgor. Normal color with no rashes, no lesions, and no evidence of cellulitis. MS/ Extremity: Pulses equal, no cyanosis. Neurovascular intact. Full, normal range of motion. Neuro: Awake and alert, GCS 15, oriented to person, place, time, and situation. Cranial nerves II-XII grossly intact. Motor strength 5/5 in all extremities. Sensory grossly intact. Psych: Awake, alert, with orientation to person, place and time. Behavior, mood, and affect are within normal limits Vital Signs: 11/21 03:08 BP 113 / 94; Pulse 81; Resp 18; Temp 98; Pulse Ox 100% on R/A; dd2 04:35 BP 171 / 89; Pulse 80; Resp 18; Temp 98; Pulse Ox 96% on R/A; Pain 0/10; bm8 06:12 BP 177 / 90; Pulse 90; Resp 16; Pulse Ox 97% on R/A; dd2 04:35 Pain Scale: Adult bm8 Sudhir Coma Score: 03:14 Eye Response: spontaneous(4). Motor Response: obeys commands(6). Verbal Response: dd2 oriented(5). Total: 15. 04:35 Eye Response: spontaneous(4). Motor Response: obeys commands(6). Verbal Response: bm8 oriented(5). Total: . 11/22 02:45 Eye Response: spontaneous(4). Motor Response: obeys commands(6). Verbal Response: sp4 oriented(5). Total: 15. MDM: 11/21 03:08 Medical Screening Exam initiated sp4 11/22 02:45 Differential Diagnosis altered mental status, sepsis, flu, Angioedema.. Data reviewed: sp4 vital signs, nurses notes, EMS record, old medical records. Consideration of Admission/Observation Escalation of care including admission/observation considered. ED course: Positive for mild tongue swelling. Patient was closely monitored and there was no additional tongue swelling. Patient stable for discharge home. Based on prior visits patient usually does well at home without necessity for hospital admission. 11/21 03:08 Order name: Saline Lock; Complete Time: 03:21 sp4 Administered Medications: 11/21 03:21 Drug: MethylPrednisoLONE IVP 125 mg IVP once Route: IVP; Site: right antecubital; dd2 04:38 Follow up: Response: No adverse reaction bm8 03:21 Drug: Famotidine IVP 20 mg IVP once; dilute with 10 mL 0.9% NaCl; give over 2 minutes dd2 Route: IVP; Site: right antecubital; 04:38 Follow up: Response: No adverse reaction bm8 03:21 Drug: diphenhydrAMINE IVP 25 mg IVP once Route: IVP; Site: right antecubital; dd2 04:38 Follow up: Response: No adverse reaction bm8 Disposition: 11/22 02:47 Chart complete. sp4 Disposition Summary: 11/21/24 06:15 Discharge Ordered Notes: Location: Home sp4 Problem: new sp4 Symptoms: have improved sp4 Condition: Stable sp4 Diagnosis - Acute angioedema, acute tongue swelling sp4 Followup: sp4 - With: Private Physician - When: 7 - 10 days - Reason: Recheck today's complaints Discharge Instructions: - Discharge Summary Sheet sp4 - Angioedema, [id number] sp4 Forms: - Patient Portal Instructions sp4 Prescriptions: - Benadryl 25 mg Oral capsule - take 1 capsule ORAL route every 8 hours As needed PRN swelling; 30 tablet; sp4 Refills: 0, Product Selection Permitted - Prednisone 20 mg Oral Tablet - take 2 tablets ORAL route once daily for 5 days; 10 tablet; Refills: 0, Product sp4 Selection Permitted Signatures: Clint Galindo MD MD sp4 SHANAE MULLER RN RN dd2 Krishnamurthy, Ernesto RN bm8
--- NOTE | 2024-11-21 06:16 | ER ---
Nurse's Notes [facility] Name: Neftali Gill Jr Age: 69 yrs Sex: Male : 1955 Arrival Date: 11/21/2024 Time: 03:04 Bed 4 Private MD: Diagnosis: Acute angioedema, acute tongue swelling Presentation: 11/21 03:08 Chief complaint: EMS states: TONED OUT FOR TONGUE SWELLING. PT REPORTS HX OF ANGIOEDEMA dd2 AND TONGUE BEGAN SWELLING APPROX 20 MINS PRIOR TO CALLING 911. PT REPORTS TAKING 2 BENADRYL, UNKNOWN DOSAGE. Coronavirus screen: At this time, the client does not indicate any symptoms associated with coronavirus-19. Ebola Screen: No symptoms or risks identified at this time. Initial Sepsis Screen: Does the patient meet any 2 criteria? No. Patient's initial sepsis screen is negative. Does the patient have a suspected source of infection? No. Patient's initial sepsis screen is negative. Risk Assessment: Do you want to hurt yourself or someone else? Patient reports no desire to harm self or others. Onset of symptoms was November 21, 2024. Care prior to arrival: IV initiated. 20 GA, in the right antecubital area. 03:08 Method Of Arrival: EMS: [facility] dd2 03:08 Acuity: DUNCAN 3 dd2 Triage Assessment: 03:11 General: Appears in no apparent distress. Behavior is calm, cooperative, appropriate dd2 for age. Pain: Denies pain. EENT: MILD TONGUE SWELLING. Reports TONGUE SWELLING. Neuro: Lopez Agitation-Sedation Scale (RASS): 0 - Alert and Calm Level of Consciousness is awake, alert, obeys commands, Oriented to person, place, time, situation, Appropriate for age. Cardiovascular: Patient's skin is warm and dry. Respiratory: Airway is patent Respiratory effort is even, unlabored, Respiratory pattern is regular, symmetrical, Breath sounds are clear bilaterally. GI: No deficits noted. No signs and/or symptoms were reported involving the gastrointestinal system. Abdomen is non-distended. : No deficits noted. No signs and/or symptoms were reported regarding the genitourinary system. Derm: No deficits noted. No signs and/or symptoms reported regarding the dermatologic system. Musculoskeletal: No deficits noted. No signs and/or symptoms reported regarding the musculoskeletal system. Circulation, motion, and sensation intact. Range of motion: intact in all extremities. Historical: - Allergies: 03:11 ACES; dd2 03:11 Cephalexin; dd2 03:11 Diovan; dd2 03:11 Lisinopril; dd2 03:11 nebivolol HCl; dd2 03:11 NSAIDS; dd2 03:11 valsartan; dd2 - PMHx: 03:11 ANGIOEDEMA; GERD; High Cholesterol; Hypertension; NIDDM; dd2 - PSHx: 03:11 Cholecystectomy; TURP; dd2 - Immunization history:: Adult Immunizations up to date. - Infectious Disease History:: Denies. - Social history:: Smoking status: Patient denies any tobacco usage or history of. - Family history:: not pertinent. Screenin:14 [facility] ED Fall Risk Assessment (Adult) History of falling in the last 3 months, dd2 including since admission No falls in past 3 months (0 pts) Confusion or Disorientation No (0 pts) Intoxicated or Sedated No (0 pts) Impaired Gait No (0 pts) Mobility Assist Device Used No (0 pt) Altered Elimination No (0 pt) Score/Fall Risk Level 0 - 2 = Low Risk Oriented to surroundings, Maintained a safe environment, Educated pt \T\ family on fall prevention, incl call for assistance when getting out of bed, Assessed \T\ reinforced patient's understanding of fall precautions, Hourly rounding (assess needs \T\ fall precautionary measures) done. Abuse screen: Denies threats or abuse. Denies injuries from another. Nutritional screening: No deficits noted. Tuberculosis screening: No symptoms or risk factors identified. Assessment: 03:14 Reassessment: SEE TRIAGE ASSESSMENT FOR FULL ASSESSMENT. dd2 04:35 Reassessment: Patient appears in no apparent distress at this time. Patient and/or bm8 family updated on plan of care and expected duration. Pain level reassessed. Patient is alert, oriented x 3, equal unlabored respirations, skin warm/dry/pink. Patient states feeling better. Patient states symptoms have improved. 06:33 Reassessment: Patient appears in no apparent distress at this time. Patient and/or bm8 family updated on plan of care and expected duration. Pain level reassessed. Patient is alert, oriented x 3, equal unlabored respirations, skin warm/dry/pink. Patient denies pain at this time. Patient states feeling better. Patient states symptoms have improved. Vital Signs: 03:08 BP 113 / 94; Pulse 81; Resp 18; Temp 98; Pulse Ox 100% on R/A; dd2 04:35 BP 171 / 89; Pulse 80; Resp 18; Temp 98; Pulse Ox 96% on R/A; Pain 0/10; bm8 06:12 BP 177 / 90; Pulse 90; Resp 16; Pulse Ox 97% on R/A; dd2 04:35 Pain Scale: Adult bm8 Sudhir Coma Score: 03:14 Eye Response: spontaneous(4). Motor Response: obeys commands(6). Verbal Response: dd2 oriented(5). Total: 15. 04:35 Eye Response: spontaneous(4). Motor Response: obeys commands(6). Verbal Response: bm8 oriented(5). Total: 15. 04/15 02:45 Eye Response: spontaneous(4). Motor Response: obeys commands(6). Verbal Response: sp4 oriented(5). Total: 15. ED Course: 11/21 03:07 Patient arrived in ED. ha1 03:07 SHANAE MULLER, RN is Primary Nurse. dd2 03:07 Clint Galindo MD is Attending Physician. sp4 03:11 Triage completed. dd2 03:11 Arm band placed on right wrist. dd2 03:14 Patient has correct armband on for positive identification. Bed in low position. Call dd2 light in reach. Side rails up X2. Client placed on continuous cardiac and pulse oximetry monitoring. NIBP monitoring applied. Door closed. Noise minimized. Warm blanket given. Pillow given. Verbal reassurance given. 03:14 No provider procedures requiring assistance completed. Maintain EMS IV. Dressing dd2 intact. Good blood return noted. Site clean \T\ dry. Gauge \T\ site: 20G RAC. Flushed with 10 mL NS. Patient maintains SpO2 saturation greater than 95% on room air. 04:35 Provided Education on: post er care. bm8 06:33 IV discontinued, intact, bleeding controlled, No redness/swelling at site. Pressure bm8 dressing applied. Administered Medications: 03:21 Drug: MethylPrednisoLONE IVP 125 mg IVP once Route: IVP; Site: right antecubital; dd2 04:38 Follow up: Response: No adverse reaction bm8 03:21 Drug: Famotidine IVP 20 mg IVP once; dilute with 10 mL 0.9% NaCl; give over 2 minutes dd2 Route: IVP; Site: right antecubital; 04:38 Follow up: Response: No adverse reaction bm8 03:21 Drug: diphenhydrAMINE IVP 25 mg IVP once Route: IVP; Site: right antecubital; dd2 04:38 Follow up: Response: No adverse reaction bm8 Medication: 03:14 VIS not applicable for this client. dd2 Outcome: 06:15 Discharge ordered by . roland 06:33 Discharged to home via wheelchair, bm8 06:33 Condition: stable 06:33 Discharge instructions given to patient, family, Instructed on discharge instructions, follow up and referral plans. no drinking with medication, no driving heavy equipment, medication usage, safety practices, Demonstrated understanding of instructions, follow-up care, medications, Prescriptions given X 3, 06:34 Patient left the ED. bm8 Signatures: Sarah Corey RN RN ha1 Clint Galindo MD MD sp4 Ernesto Krishnamurthy RN RN bm8 SHANAE MULLER RN RN dd2
[2024-11-21 06:48] VITALS: TEMP 98
[2024-11-21 06:50] VITALS: BP 177/90; O2SAT 97
== END 2024-11-21 06:34 | disposition home or self-care (01) ==
LOC: ER 03:04
DX: T78.3XXA Angioneurotic edema, initial encounter (principal)
CPT/HCPCS: 96375; 96374; 99284; J1200; J2919

== ENCOUNTER 2025-04-05 14:24 | Emergency (ER) | payer OTHER ==
--- OUTSIDE RECORDS SUMMARY | 2025-04-05 14:32 | XMS REPORT | Continuity of Care Document ---
Author Name Unknown Address [address] [facility] [place] [address] [facility] Address [address] 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 Name Role Phone Mary Alberto Primary Care Physician [phone] Mary Alberto Attending Clinician Unavailable Holley Ramos Attending Clinician [phone] Pedro Bah MD Attending Clinician [phone] PEDRO BAH Attending Clinician Unavailable Pob, [facility] Attending Clinician UnavailTico De La Vega MD Attending Clinician [phone] TICO ACE Attending Clinician Unavail able Betzaida Motley Attending Clinician [phone] Lita Voss Attending Clinician [phone] ASHLYN CARDOSO Attending Clinician Unavailab le Ashlyn Cardoso NP Attending Clinician [phone] PEDRO BAH Admitting Clinician Unavailable Pedro Bah MD Admitting Clinician [phone] ASHLYN CARDOSO Admitting Clinician Unavailab le Payers Payer Name Policy Type Policy Number Effective Date Expirati on Date Source ANIL LIAO PLS O [id number] 2022 00:00:00 2024 00:00:00 [employer] O 111 [id number] 2022 00:00:00 [facility] Problems Condition Name Condition Details Condition Category Status Onset Date Resolution Date Last Treatment Date Treating Clinician Comments Source Lumbar radiculopa thy Lumbar radiculopa thy Disease Active 09-29 00:00: 00 [facility] 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 and lower extremity pain 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 and lower extremity pain Disease Active 09-08 00:00: 00 [facility] Acute right-side d low back pain with right-side d sciatica Acute right-side d low back pain with right-side d sciatica Disease Active 09-08 00:00: 00 [facility] Type 2 diabetes mellitus without complicati on Type 2 diabetes mellitus without complicati on Disease Active 03-26 00:00: 00 [facility] Essential hypertensi on Essential hypertensi on Disease Active 03-26 00:00: 00 [facility] Type 2 diabetes mellitus without complicati on Type 2 diabetes mellitus without complicati on Disease Active 03-26 00:00: 00 [facility] Obesity Obesity Disease Active 03-26 00:00: 00 [facility] Chest pain Chest pain Disease Active 03-25 00:00: 00 [facility] [id number] Detrusor instabilit y Problem [facility] [id number] Urge incontinen ce Problem [facility] [id number] BMI 28.0-28.9, adult Problem [facility] [id number] Diarrhea, functional Problem [facility] [id number] Primary insomnia Problem [facility] [id number] Lumbar back pain with radiculopa thy affecting lower extremity Problem [facility] [id number] Disorder of urinary system, unspecifie d Problem Common [facility] Frequency Frequency Problem Comm on [facility] Comprehens ladi eye examinatio n (procedure ) Routine eye exam Problem Common [facility] [id number] Current every day smoker Problem Common [facility] [id number] Right upper quadrant abdominal pain Problem Common [facility] Seasonal allergic rhinitis Seasonal allergic reaction Problem Common [facility] Peripheral neuropathy Peripheral neuropathy Problem Common [facility] Disturbanc e of skin sensation Disturbanc e of skin sensation Problem [facility] Angioedema Angioedema Problem Co mmon [facility] Hypertensi on Hypertensi on Problem Common [facility] [id number] Wound of skin Problem [facility] [id number] S/P TURP (status post transureth ral resection of prostate) Problem [facility] [id number] Dysuria Problem [facility] [id number] Other postherpet ic nervous system involvemen t Problem [facility] [id number] Hospital discharge follow-up Problem [facility] 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 Problem [facility] [id number] Diarrhea of presumed infectious origin Problem [facility] [id number] Acquired anal stenosis Problem [facility] [id number] Lower urinary tract symptoms (LUTS) Problem [facility] [id number] BPH loc w urin obs/LUTS Problem [facility] Benign prostatic hyperplasi a BPH (benign prostatic hyperplasi a) Problem [facility] [id number] Prostatiti s, acute Problem [facility] [id number] ED (erectile dysfunctio n) of organic origin Problem [facility] [id number] 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 Problem [facility] Overactive bladder OAB (overactiv e bladder) Problem [facility] Impotence of organic origin ED (erectile dysfunctio n) Problem [facility] [id number] 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 Problem [facility] [id number] Type 2 diabetes mellitus with foot ulcer Problem [facility] [id number] Gastroesop hageal reflux disease without esophagiti s Problem [facility] [id number] Urethritis Problem Comm on [facility] [id number] Incomplete emptying of bladder Problem [facility] Allergies, Adverse Reactions, Alerts Allergy Name Allergy Type Status Severity Reaction(s) Onset Date Inactive Date Treating Clinician Comments Source Aspirin Propensi ty to adverse reaction s Active Hives 03-25 00:00: 00 [facility] Valsarta n Propensi ty to adverse reaction s Active Swelling 03-25 00:00: 00 [facility] Lisinopr il Propensi ty to adverse reaction s Active Rash 03-25 00:00: 00 [facility] Nsaids (Non-Rafael roidal Anti-Inf lammator y Drug) Propensi ty to adverse reaction s Active Rash 03-25 00:00: 00 [facility] Nsaids (Non-Rafael roidal Anti-Inf lammator y Drug) Propensi ty to adverse reaction s Active Rash 03-25 00:00: 00 [facility] ASPIRIN DRUG INGREDI Active Hives 03-25 00:00: 00 [facility] VALSARTA N DRUG INGREDI Active Swelling 03-25 00:00: 00 [facility] LISINOPR IL DRUG INGREDI Active Rash 03-25 00:00: 00 [facility] Nsaids (Non-Rafael roidal Anti-Inf lammator y Drug) Propensi ty to adverse reaction s Active Rash 03-25 00:00: 00 [facility] NSAIDS (NON-RAFAEL ROIDAL ANTI-INF LAMMATOR Y DRUG) Drug Class Active Rash 8-16 00:00: 00 [facility] lisinopr il lisinopr il Active angioedema [facility] valsarta n valsarta n Active angioedema [facility] 6335 Drug allergy Active Unknown [facility] cephalex in cephalex in Active shock [facility] carvedil ol carvedil ol Active Unknown [facility] Social History Social Habit Start Date Stop Date Quantity Comments Source History of tobacco use Smokes tobacco daily [facility] Tobacco use and exposure 2024-09-29 00:00:00 2024-09-29 00:00:00 Smokeless tobacco non-user [facility] History of Social function 2024-09-29 00:00:00 2024-09-29 00:00:00 [facility] Tobacco Comment 2024-09-29 00:00:00 2024-09-29 00:00:00 2-3 cigarettes per day [facility] Sex assigned at 1955 00:00:00 1955 00:00:00 [facility] Smoking Status Start Date Stop Date Source Smokes tobacco daily 2024-09-29 00:00:00 [facility] Never Smoker [facility] Medications Ordered Medication Name Filled Medication Name Start Date Stop Date Current Medication? Ordering Clinician Indication Dosage Frequency Signature (SIG) Comments Components Source baclofen 5 mg tablet 03-20 00:00: 00 Yes [id number] 5mg Take 1 tablet by mouth in the morning and 1 tablet at noon and 1 tablet in the evening. [facility] Pregabalin 225 MG Pregabalin 225 MG 03-09 00:00: 00 No 1{capsu le} BID Pregabalin 225 MG BACLOFEN 5 mg tablet 02-08 00:00: 00 03-20 00:00 :00 No [id number] TAKE 2 TABLETS BY MOUTH IN THE MORNING, 2 TABLETS AT NOON, AND 2 TABLETS IN THE EVENING [facility] baclofen 5 mg tablet 12-30 00:00: 00 02-08 00:00 :00 No [id number] 10mg Take 2 tablets by mouth in the morning and 2 tablets at noon and 2 tablets in the evening. [facility] acetaminoph en-codeine 300-30 mg tablet 12-30 00:00: 00 01-07 04:59 :00 No [id number] 1{tbl} Take 1 tablet by mouth every 4 hours as needed for Pain (scale 4-6) for up to 7 days. Indication s: acute pain [facility] methylPREDN ISolone 4 mg tablets 12-29 00:00: 00 Yes Take by mouth SEE-INSTRU CTIONS. follow package directions [facility] METHOCARBAM OL 750 mg tablet 12-19 00:00: 00 12-30 00:00 :00 No [id number] 750mg Take 1 tablet by mouth 4 times daily [facility] methocarbam oL 750 mg tablet 11-28 00:00: 00 12-19 00:00 :00 No [id number] 750mg Take 1 tablet by mouth 4 (four) times daily. [facility] diazePAM (VALIUM) 5 mg tablet 4-04 00:00: 00 Yes [id number] 5mg Take 1 tablet by mouth every 8 (eight) hours as needed for Muscle Spasms. [facility] traMADoL 50 mg tablet 4-04 00:00: 00 11-19 04:59 :00 No [id number] 50mg Take 1 tablet by mouth every 6 (six) hours as needed for Pain (scale 4-6) for up to 7 days. Indication s: acute pain [facility] traMADoL 50 mg tablet 3-27 00:00: 00 11-11 04:59 :00 No [id number] 50mg Take 1 tablet by mouth every 6 (six) hours as needed for Pain (scale 4-6) for up to 7 days. Indication s: acute pain [facility] diazePAM (VALIUM) 5 mg tablet 10-31 00:00: 00 Yes [id number] 5mg Take 1 tablet by mouth every 8 (eight) hours as needed for Muscle Spasms. [facility] HYDROcodone -acetaminop hen (NORCO 5) tablet 1 tablet 10-12 17:30: 00 10-12 17:47 :00 No 1{tbl} 1 tablet, Oral, ONCE, 1 dose, On Thu10/12/24 at 1130, Routine, PACU [facility] lactated ringers IV infusion 1,000 mL 10-12 17:30: 00 10-12 21:09 :10 No 1000mL at 42 mL/hr, 1,000 mL, IV Infusion, CONTINUOUS , Starting on Thu10/12/24 at 1130, Until Thu10/12/24 at 1509, Routine, PACU [facility] HYDROmorpho ne (DILAUDID) injection 0.2 mg 10-12 17:29: 16 10-12 21:09 :10 No .2mg 0.2 mg, Slow IV Push, Q5MIN PRN, 10 doses, Starting on Thu10/12/24 at 1129, Until Thu10/12/24 at 1509, Routine, Pain (scale 7-10), PACU, Is this medication approved by a Faculty level provider? Yes, hotel staff member approving Restricted medication : LEEANN DOUGLASS [facility] FENTanyl (PF) (SUBLIMAZE) injection 25 mcg 10-12 17:29: 16 10-12 21:09 :10 No 25ug 25 mcg, Slow IV Push, Q5MIN PRN, 4 doses, Starting on Thu10/12/24 at 1129, Until Thu10/12/24 at 1509, Routine, Pain Scale 4-6, PACU [facility] bupivacaine (preserv free) (SENSORCAIN E MPF) 0.25 % (2.5 mg/mL) injection 10-12 17:13: 00 10-12 17:49 :15 No PRN, Starting on Thu10/12/24 at 1113, Until Thu10/12/24 at 1149, Routine, Intra-op [facility] methylPREDN ISolone acetate (DEPO-MEDRO L) injection 10-12 17:12: 00 10-12 17:49 :15 No PRN, Starting on Thu10/12/24 at 1112, Until Thu10/12/24 at 1149, Routine, Intra-op [facility] vancomycin (VANCOCIN) 1 g in sodium chloride 0.9 % irrigation 10-12 15:49: 00 10-12 17:49 :14 No PRN, Starting on Thu10/12/24 at 0949, Until Thu10/12/24 at 1149, 1,000 mL, Intra-op [facility] thrombin topical solution 10-12 15:49: 00 10-12 17:49 :14 No PRN, Starting on Thu10/12/24 at 0949, Until Thu10/12/24 at 1149, Routine, Intra-op [facility] lidocaine-e pinephrine (XYLOCAINE WITH EPINEPHRINE ) 0.5 %-1:200,000 injection 10-12 15:40: 00 10-12 17:49 :14 No PRN, Starting on Thu10/12/24 at 0940, Until Thu10/12/24 at 1149, Routine, Intra-op [facility] docusate 100 mg capsule 10-12 00:00: 00 10-27 04:59 :00 No [id number] 100mg Take 1 capsule by mouth in the morning for 14 days. Take with a full glass of water. [facility] methocarbam oL 500 mg tablet 10-12 00:00: 00 10-27 04:59 :00 No [id number] 500mg Take 1 tablet by mouth 4 (four) times daily for 14 days. Indication s: a uncontroll ed muscle contractio n with pain [facility] HYDROcodone -acetaminop hen 5-325 mg tablet 10-12 00:00: 00 10-20 04:59 :00 No [id number] 1{tbl} Take 1 tablet by mouth every 4 (four) hours as needed for Pain (scale 4-6) or Pain (scale 7-10) for up to 7 days. Indication s: acute pain [facility] traMADoL 50 mg tablet 2-20 00:00: 00 10-07 05:59 :00 No [id number] 50mg Take 1 tablet by mouth every 6 (six) hours as needed for Pain (scale 4-6) for up to 7 days. Indication s: acute pain [facility] methylPREDN ISolone (MEDROL, MICHAEL,) 4 mg tablets methylPREDN ISolone (MEDROL, MICHAEL,) 4 mg tablets -12 00:00: 00 Yes [id number] Take by mouth SEE-INSTRU CTIONS. follow package directions [facility] gabapentin 300 mg capsule gabapentin 300 mg capsule 09-21 00:00: 00 Yes [id number] 300mg Take 1 capsule by mouth 3 (three) times daily as needed for Pain (scale 7-10). [facility] Cyclobenzap rine HCl 10 MG Cyclobenzap rine HCl 10 MG 2-10 00:00: 00 No 1{table t} TID Cyclobenza huyen HCl 10 MG fentanyl PF (SUBLIMAZE (PF)) injection 50 mcg 09-09 01:15: 00 09-09 01:25 :00 No 50ug 50 mcg, Intramuscu lar, ONCE, 1 dose, On Thu09/08/24 at 1915, STAT [facility] HYDROcodone -acetaminop hen (NORCO 5) tablet 1 tablet 09-08 22:30: 00 09-08 22:55 :00 No 1{tbl} 1 tablet, Oral, ONCE, 1 dose, On Thu09/08/24 at 1630, [facility] methocarbam oL (ROBAXIN) tablet 1,000 mg 09-08 22:30: 00 09-08 22:55 :00 No 1000mg 1,000 mg, Oral, ONCE, 1 dose, On Thu09/08/24 at 1630[facility] mg tablet 09-08 00:00: 00 Yes [id number] 750mg Take 1 tablet by mouth every 6 (six) hours as needed for Pain (scale 7-10). [facility] Nystatin [id number] UNIT/ML Nystatin [id number] UNIT/ML 11-30 00:00: 00 No 4{ml} QID Nystatin [id number] UNIT/ML clomiPHENE Citrate 50 MG clomiPHENE Citrate 50 MG 3 00:00: 00 No QD clomiPHENE Citrate 50 MG PRAVASTATIN SODIUM (PRAVASTATI N ORAL) 03-27 15:15: 56 Yes 5mg Take by mouth. [facility] glipiZIDE XL (GLUCOTROL XL) 10 mg 24 hr tablet 03-27 15:15: 56 Yes 10mg Take 1 tablet by mouth daily with breakfast. [facility] predniSONE (DELTASONE) 10 mg tablet 03-27 15:15: 56 Yes 10mg Take 1 tablet by mouth in the morning. [facility] nitroglycer in (NITROSTAT) 0.4 mg sublingual tablet 03-27 00:00: [address] 1 tablet under the tongue every 5 (five) minutes as needed for Chest pain. [facility] traMADOL (ULTRAM) 50 mg tablet 03-27 00:00: 00 Yes 50mg Take 1 tablet by mouth every 6 (six) hours as needed for Pain (scale 4-6). [facility] Cholestyram ine 4 GM Cholestyram ine [...] Flucelvax - multidose vial 2021-07-31 17:04:00 Completed [facility] Flucelvax - multidose vial Flucelvax - multidose vial 2021-07-31 17:04:00 Completed [facility] Flucelvax - multidose vial Flucelvax - multidose vial 2021-07-31 17:04:00 Completed [facility] Flucelvax - multidose vial Flucelvax - multidose vial 2021-07-31 17:04:00 Completed [facility] Flucelvax - multidose vial Flucelvax - multidose vial 2021-07-31 17:04:00 Completed [facility] Flucelvax - multidose vial Flucelvax - multidose vial 2021-07-31 17:04:00 Completed [facility] Flucelvax - multidose vial Flucelvax - multidose vial 2021-07-31 17:04:00 Completed [facility] Flucelvax - multidose vial Flucelvax - multidose vial 2021-07-31 17:04:00 Completed [facility] Flucelvax - multidose vial Flucelvax - multidose vial 2021-07-31 17:04:00 Completed [facility] Flucelvax - multidose vial Flucelvax - multidose vial 2021-07-31 17:04:00 Completed [facility] Flucelvax - multidose vial Flucelvax - multidose vial 2021-07-31 17:04:00 Completed [facility] Flucelvax - multidose vial Flucelvax - multidose vial 2021-07-31 17:04:00 Completed [facility] Flucelvax - multidose vial Flucelvax - multidose vial 2021-07-31 17:04:00 Completed [facility] Flucelvax - multidose vial Flucelvax - multidose vial 2021-07-31 17:04:00 Completed [facility] Flucelvax - multidose vial Flucelvax - multidose vial 2021-07-31 17:04:00 Completed [facility] Flucelvax - multidose vial Flucelvax - multidose vial 2021-07-31 17:04:00 Completed [facility] Flucelvax - multidose vial Flucelvax - multidose vial 2021-07-31 17:04:00 Completed [facility] Flucelvax - multidose vial Flucelvax - multidose vial 2021-07-31 17:04:00 Completed [facility] Flucelvax - multidose vial Flucelvax - multidose vial 2021-07-31 17:04:00 Completed [facility] Flucelvax - multidose vial Flucelvax - multidose vial 2021-07-31 17:04:00 Completed [facility] Flucelvax - multidose vial Flucelvax - multidose vial 2021-07-31 17:04:00 Completed [facility] Flucelvax - multidose vial Flucelvax - multidose vial 2021-07-31 17:04:00 Completed [facility] SARS-COV-2 COVID-19 PFIZER VACCINE 2021-03-18 00:00:00 Completed [facility] SARS-COV-2 COVID-19 PFIZER VACCINE 2021-02-25 00:00:00 Completed [facility] Flucelvax - single dose syringe Flucelvax - single dose syringe 2019-05-05 17:06:00 Completed [facility] Flucelvax - single dose syringe Flucelvax - single dose syringe 2019-05-05 17:06:00 Completed [facility] Flucelvax - single dose syringe Flucelvax - single dose syringe 2019-05-05 17:06:00 Completed [facility] Flucelvax - single dose syringe Flucelvax - single dose syringe 2019-05-05 17:06:00 Completed [facility] Flucelvax - single dose syringe Flucelvax - single dose syringe 2019-05-05 17:06:00 Completed [facility] Flucelvax - single dose syringe Flucelvax - single dose syringe 2019-05-05 17:06:00 Completed [facility] Flucelvax - single dose syringe Flucelvax - single dose syringe 2019-05-05 17:06:00 Completed [facility] Flucelvax - single dose syringe Flucelvax - single dose syringe 2019-05-05 17:06:00 Completed [facility] Flucelvax - single dose syringe Flucelvax - single dose syringe 2019-05-05 17:06:00 Completed [facility] Flucelvax - single dose syringe Flucelvax - single dose syringe 2019-05-05 17:06:00 Completed [facility] Flucelvax - single dose syringe Flucelvax - single dose syringe 2019-05-05 17:06:00 Completed [facility] Flucelvax - single dose syringe Flucelvax - single dose syringe 2019-05-05 17:06:00 Completed [facility] Flucelvax - single dose syringe Flucelvax - single dose syringe 2019-05-05 17:06:00 Completed [facility] Flucelvax - single dose syringe Flucelvax - single dose syringe 2019-05-05 17:06:00 Completed [facility] Flucelvax - single dose syringe Flucelvax - single dose syringe 2019-05-05 17:06:00 Completed [facility] Flucelvax - single dose syringe Flucelvax - single dose syringe 2019-05-05 17:06:00 Completed [facility] Flucelvax - single dose syringe Flucelvax - single dose syringe 2019-05-05 17:06:00 Completed [facility] Flucelvax - single dose syringe Flucelvax - single dose syringe 2019-05-05 17:06:00 Completed [facility] Flucelvax - single dose syringe Flucelvax - single dose syringe 2019-05-05 17:06:00 Completed [facility] Flucelvax - single dose syringe Flucelvax - single dose syringe 2019-05-05 17:06:00 Completed [facility] Flucelvax - single dose syringe Flucelvax - single dose syringe 2019-05-05 17:06:00 Completed [facility] Flucelvax - single dose syringe Flucelvax - single dose syringe 2019-05-05 17:06:00 Completed [facility] Flucelvax - single dose syringe Flucelvax - single dose syringe 2019-05-05 17:06:00 Completed [facility] Flucelvax (ccIIV4) - MDV - 0.5mL Flucelvax (ccIIV4) - MDV - 0.5mL Unknown Completed [facility] Flucelvax (ccIIV4) - SDS - 0.5mL Flucelvax (ccIIV4) - SDS - 0.5mL Unknown Completed [facility] Flucelvax (ccIIV4) - MDV - 0.5mL Flucelvax (ccIIV4) - MDV - 0.5mL Unknown Completed [facility] Flucelvax (ccIIV4) - SDS - 0.5mL Flucelvax (ccIIV4) - SDS - 0.5mL Unknown Completed [facility] Flucelvax (ccIIV4) - MDV - 0.5mL Flucelvax (ccIIV4) - MDV - 0.5mL Unknown Completed [facility] Flucelvax (ccIIV4) - SDS - 0.5mL Flucelvax (ccIIV4) - SDS - 0.5mL Unknown Completed [facility] Flucelvax (ccIIV4) - MDV - 0.5mL Flucelvax (ccIIV4) - MDV - 0.5mL Unknown Completed [facility] Flucelvax (ccIIV4) - SDS - 0.5mL Flucelvax (ccIIV4) - SDS - 0.5mL Unknown Completed [facility] Flucelvax (ccIIV4) - MDV - 0.5mL Flucelvax (ccIIV4) - MDV - 0.5mL Unknown Completed [facility] Flucelvax (ccIIV4) - SDS - 0.5mL Flucelvax (ccIIV4) - SDS - 0.5mL Unknown Completed [facility] Flucelvax (ccIIV4) - MDV - 0.5mL Flucelvax (ccIIV4) - MDV - 0.5mL Unknown Completed [facility] Flucelvax (ccIIV4) - SDS - 0.5mL Flucelvax (ccIIV4) - SDS - 0.5mL Unknown Completed [facility] Flucelvax (ccIIV4) - MDV - 0.5mL Flucelvax (ccIIV4) - MDV - 0.5mL Unknown Completed [facility] Flucelvax (ccIIV4) - SDS - 0.5mL Flucelvax (ccIIV4) - SDS - 0.5mL Unknown Completed [facility] Flucelvax (ccIIV4) - MDV - 0.5mL Flucelvax (ccIIV4) - MDV - 0.5mL Unknown Completed [facility] Flucelvax (ccIIV4) - SDS - 0.5mL Flucelvax (ccIIV4) - SDS - 0.5mL Unknown Completed [facility] Flucelvax (ccIIV4) - MDV - 0.5mL Flucelvax (ccIIV4) - MDV - 0.5mL Unknown Completed [facility] Flucelvax (ccIIV4) - SDS - 0.5mL Flucelvax (ccIIV4) - SDS - 0.5mL Unknown Completed [facility] Flucelvax (ccIIV4) - MDV - 0.5mL Flucelvax (ccIIV4) - MDV - 0.5mL Unknown Completed [facility] Flucelvax (ccIIV4) - SDS - 0.5mL Flucelvax (ccIIV4) - SDS - 0.5mL Unknown Completed [facility] Flucelvax (ccIIV4) - MDV - 0.5mL Flucelvax (ccIIV4) - MDV - 0.5mL Unknown Completed [facility] Flucelvax (ccIIV4) - SDS - 0.5mL Flucelvax (ccIIV4) - SDS - 0.5mL Unknown Completed [facility] Fluad (IIV) - SDS - 0.5mL Fluad (IIV) - SDS - 0.5mL Unknown Completed [facility] Flucelvax - multidose vial Flucelvax - multidose vial Unknown Completed [facility] Flucelvax - single dose syringe Flucelvax - single dose syringe Unknown Completed [facility] Flucelvax - multidose vial Flucelvax - multidose vial Unknown Completed [facility] Flucelvax - single dose syringe Flucelvax - single dose syringe Unknown Completed [facility] Flucelvax - multidose vial Flucelvax - multidose vial Unknown Completed [facility] Flucelvax - single dose syringe Flucelvax - single dose syringe Unknown Completed [facility] Flucelvax - multidose vial Flucelvax - multidose vial Unknown Completed [facility] Flucelvax - single dose syringe Flucelvax - single dose syringe Unknown Completed [facility] Flucelvax - multidose vial Flucelvax - multidose vial Unknown Completed [facility] Flucelvax - single dose syringe Flucelvax - single dose syringe Unknown Completed [facility] Flucelvax - multidose vial Flucelvax - multidose vial Unknown Completed [facility] Flucelvax - single dose syringe Flucelvax - single dose syringe Unknown Completed [facility] Flucelvax - multidose vial Flucelvax - multidose vial Unknown Completed [facility] Flucelvax - single dose syringe Flucelvax - single dose syringe Unknown Completed [facility] Flucelvax - multidose vial Flucelvax - multidose vial Unknown Completed [facility] Flucelvax - single dose syringe Flucelvax - single dose syringe Unknown Completed [facility] Flucelvax - multidose vial Flucelvax - multidose vial Unknown Completed [facility] Flucelvax - single dose syringe Flucelvax - single dose syringe Unknown Completed [facility] Vital Signs Vital Name Observation Time Observation Value Comments S pavel height 2025-03-09 10:20:00 73 [in_i] Commo n [facility] weight 2025-03-09 10:20:00 208.6 [lb_av] Co mmon [facility] temperature 2025-03-09 10:20:00 97.4 [degF] Com mon [facility] bmi 2025-03-09 10:20:00 27.52 kg/m2 Comm on [facility] oximetry 2025-03-09 10:20:00 97 % Commo n [facility] respiratory rate 2025-03-09 10:20:00 16 /min [facility] blood pressure systolic 2025-03-09 10:20:00 138 mm[Hg] [facility] blood pressure diastolic 2025-03-09 10:20:00 78 mm[Hg] [facility] Respiratory rate 2024-11-28 17:22:00 16 /min [facility] Body height 2024-11-28 17:22:00 185.4 cm [facility] Body weight 2024-11-28 17:22:00 94.802 kg [facility] BMI 2024-11-28 17:22:00 27.57 kg/m2 [facility] Heart rate 2024-10-12 18:40:00 81 /min [facility] Oxygen saturation in Arterial blood by Pulse oximetry 2024-10-12 18:40:00 96 /min [facility] Systolic blood pressure 2024-10-12 18:25:00 154 mm[Hg] [facility] Diastolic blood pressure 2024-10-12 18:25:00 82 mm[Hg] [facility] Respiratory rate 2024-10-12 18:25:00 18 /min [facility] Body temperature 2024-10-12 17:40:00 36.28 Bela [facility] Body height 2024-10-12 13:59:00 185.4 cm [facility] 2024-10-12 13:59:00 94.9 kg [facility] BMI 2024-10-12 13:59:00 27.60 kg/m2 Univ [facility] Systolic blood pressure 2024-10-12 13:59:00 141 mm[Hg] [facility] Diastolic blood pressure 2024-10-12 13:59:00 75 mm[Hg] [facility] Heart rate 2024-10-12 13:59:00 76 /min [facility] 2024-10-12 13:59:00 36.44 Bela [facility] Respiratory rate 2024-10-12 13:59:00 18 /min [facility] Body height 2024-10-12 13:59:00 185.4 cm Univ [facility] Body weight 2024-10-12 13:59:00 94.9 kg [facility] BMI 2024-10-12 13:59:00 27.60 kg/m2 [facility] Oxygen saturation in Arterial blood by Pulse oximetry 2024-10-12 13:59:00 97 /min [facility] Respiratory rate 2024-09-29 18:22:00 16 /min [facility] Body height 2024-09-29 18:22:00 185.4 cm [facility] 2024-09-29 18:22:00 97.523 kg Univ [facility] BMI 2024-09-29 18:22:00 28.37 kg/m2 Univ [facility] Body height 2024-09-21 19:28:00 185.4 cm Univ [facility] Body weight 2024-09-21 19:28:00 97.523 kg Univ [facility] BMI 2024-09-21 19:28:00 28.37 kg/m2 Univ [facility] height 2024-09-19 11:20:00 73 [in_i] Commo n [facility] weight 2024-09-19 11:20:00 220 [lb_av] Comm on [facility] bmi 2024-09-19 11:20:00 29.02 kg/m2 Comm on [facility] Heart rate 2024-09-09 01:44:00 75 /min [facility] Respiratory rate 2024-09-09 01:44:00 16 /min [facility] Oxygen saturation in Arterial blood by Pulse oximetry 2024-09-09 01:44:00 96 /min [facility] Systolic blood pressure 2024-09-09 01:00:00 157 mm[Hg] [facility] Diastolic blood pressure 2024-09-09 01:00:00 76 mm[Hg] [facility] Body temperature 2024-09-08 22:13:00 36.78 Bela [facility] Body height 2024-09-08 22:13:00 188 cm [facility] Body weight 2024-09-08 22:13:00 97.523 kg [facility] BMI 2024-09-08 22:13:00 27.60 kg/m2 [facility] height 2024-09-07 16:20:00 73 [in_i] Commo n [facility] weight 2024-09-07 16:20:00 220 [lb_av] Comm on [facility] bmi 2024-09-07 16:20:00 29.02 kg/m2 Comm on [facility] height 2024-06-20 14:20:00 73 [in_i] Commo n [facility] weight 2024-06-20 14:20:00 219.6 [lb_av] Co mmon [facility] temperature 2024-06-20 14:20:00 98.4 [degF] Com mon [facility] bmi 2024-06-20 14:20:00 28.97 kg/m2 Comm on [facility] oximetry 2024-06-20 14:20:00 97 % Commo n [facility] respiratory rate 2024-06-20 14:20:00 16 /min Common [facility] blood pressure systolic 2024-06-20 14:20:00 154 mm[Hg] Common [facility] blood pressure diastolic 2024-06-20 14:20:00 75 mm[Hg] Common [facility] height 2024-03-07 16:00:00 73 [in_i] Commo n [facility] weight 2024-03-07 16:00:00 220 [lb_av] Comm on [facility] bmi 2024-03-07 16:00:00 29.02 kg/m2 Comm on [facility] height 2023-12-01 16:00:00 73 [in_i] Commo n [facility] weight 2023-12-01 16:00:00 220 [lb_av] Comm on [facility] bmi 2023-12-01 16:00:00 29.02 kg/m2 Comm on [facility] height 2023-09-30 14:00:00 73 [in_i] Commo n [facility] weight 2023-09-30 14:00:00 220.2 [lb_av] Co mmon [facility] temperature 2023-09-30 14:00:00 97.9 [degF] Com mon [facility] bmi 2023-09-30 14:00:00 29.05 kg/m2 Comm on [facility] oximetry 2023-09-30 14:00:00 99 % Commo n [facility] respiratory rate 2023-09-30 14:00:00 18 /min Common [facility] blood pressure systolic 2023-09-30 14:00:00 146 mm[Hg] Common [facility] blood pressure diastolic 2023-09-30 14:00:00 68 mm[Hg] Common [facility] height 2023-08-25 13:20:00 73 [in_i] Commo n [facility] weight 2023-08-25 13:20:00 220 [lb_av] Comm on [facility] bmi 2023-08-25 13:20:00 29.02 kg/m2 Comm on [facility] height 2023-05-21 16:00:00 73 [in_i] Commo n [facility] weight 2023-05-21 16:00:00 217.0 [lb_av] Co mmon [facility] temperature 2023-05-21 16:00:00 98.8 [degF] Com mon [facility] bmi 2023-05-21 16:00:00 28.63 kg/m2 Comm on [facility] oximetry 2023-05-21 16:00:00 95 % Commo n [facility] respiratory rate 2023-05-21 16:00:00 16 /min Common [facility] blood pressure systolic 2023-05-21 16:00:00 139 mm[Hg] Common [facility] blood pressure diastolic 2023-05-21 16:00:00 77 mm[Hg] Common [facility] height 2023-02-11 15:20:00 73 [in_i] Commo n [facility] weight 2023-02-11 15:20:00 214.0 [lb_av] Co mmon [facility] temperature 2023-02-11 15:20:00 97.4 [degF] Com mon [facility] bmi 2023-02-11 15:20:00 28.23 kg/m2 Comm on [facility] oximetry 2023-02-11 15:20:00 95 % Commo n [facility] respiratory rate 2023-02-11 15:20:00 16 /min [facility] blood pressure systolic 2023-02-11 15:20:00 133 mm[Hg] [facility] blood pressure diastolic 2023-02-11 15:20:00 79 mm[Hg] [facility] height 2022-09-15 16:00:00 73 [in_i] Commo n [facility] weight 2022-09-15 16:00:00 227.8 [lb_av] Co mmon [facility] temperature 2022-09-15 16:00:00 97.3 [degF] Com mon [facility] bmi 2022-09-15 16:00:00 30.05 kg/m2 Comm on [facility] oximetry 2022-09-15 16:00:00 95 % Commo n [facility] respiratory rate 2022-09-15 16:00:00 16 /min Common [facility] blood pressure systolic 2022-09-15 16:00:00 134 mm[Hg] [facility] blood pressure diastolic 2022-09-15 16:00:00 79 mm[Hg] [facility] height 2022-09-15 16:00:00 73 [in_i] Commo n [facility] weight 2022-09-15 16:00:00 227.8 [lb_av] Co mmon [facility] temperature 2022-09-15 16:00:00 97.3 [degF] Com mon [facility] bmi 2022-09-15 16:00:00 30.05 kg/m2 Comm on [facility] oximetry 2022-09-15 16:00:00 95 % Commo n [facility] respiratory rate 2022-09-15 16:00:00 16 /min Common [facility] blood pressure systolic 2022-09-15 16:00:00 134 mm[Hg] [facility] blood pressure diastolic 2022-09-15 16:00:00 79 mm[Hg] [facility] height 2022-09-03 17:00:00 73 [in_i] Commo n [facility] weight 2022-09-03 17:00:00 225.4 [lb_av] Co mmon [facility] temperature 2022-09-03 17:00:00 98.6 [degF] Com mon [facility] bmi 2022-09-03 17:00:00 29.73 kg/m2 Comm on [facility] oximetry 2022-09-03 17:00:00 99 % Commo n [facility] respiratory rate 2022-09-03 17:00:00 18 /min Common [facility] blood pressure systolic 2022-09-03 17:00:00 136 mm[Hg] Common [facility] blood pressure diastolic 2022-09-03 17:00:00 80 mm[Hg] Common [facility] height 2022-06-16 16:00:00 73 [in_i] Commo n [facility] weight 2022-06-16 16:00:00 220 [lb_av] Comm on [facility] temperature 2022-06-16 16:00:00 97.5 [degF] Com mon [facility] bmi 2022-06-16 16:00:00 29.02 kg/m2 Comm on [facility] oximetry 2022-06-16 16:00:00 96 % Commo n [facility] respiratory rate 2022-06-16 16:00:00 16 /min Common [facility] blood pressure systolic 2022-06-16 16:00:00 160 mm[Hg] Common [facility] blood pressure diastolic 2022-06-16 16:00:00 90 mm[Hg] Common [facility] blood pressure diastolic 2021-07-18 17:00:00 91 mm[Hg] Common [facility] height 2021-07-18 17:00:00 73 [in_i] Commo n [facility] weight 2021-07-18 17:00:00 225 [lb_av] Comm on [facility] temperature 2021-07-18 17:00:00 97.9 [degF] Com mon [facility] bmi 2021-07-18 17:00:00 29.68 kg/m2 Comm on [facility] oximetry 2021-07-18 17:00:00 99 % Commo n [facility] respiratory rate 2021-07-18 17:00:00 18 /min Common [facility] blood pressure systolic 2021-07-18 17:00:00 146 mm[Hg] [facility] Procedures Procedure Date / Time Performed Performing Clinician Source POCT GLUCOSE (AUTOMATED) 2024-10-12 17:47:00 Pedro Bah [facility] POCT GLUCOSE (AUTOMATED) 2024-10-12 17:47:00 Pedro Bah [facility] XR LUMBAR SPINE 1 VW 2024-10-12 17:07:50 Naty [facility] XR LUMBAR SPINE 1 VW 2024-10-12 17:07:50 [facility] [place] BENJAMIN FACETECTOMY & FORAMOTOMY 1 VRT SGM LUMBAR 2024-10-12 14:39:00 [facility] [place] B[place] FACETECTOMY&FORAMOT 1 VRT SGM EA ADDL SGM 2024-10-12 14:39:00 Pedro Bah [facility] [address]329 - [place] LAMNOTMY INCL W/DCMPRSN NRV ROOT 1 INTRSPC LUMBR 2024-10-12 14:39:00 Pedro Bah [facility] HB ABO GROUPING 2024-10-12 13:52:00 Tico Ace [facility] HB ABO GROUPING 2024-10-12 13:52:00 Tico Ace [facility] POCT GLUCOSE (AUTOMATED) 2024-10-12 13:09:00 Pedro Bah [facility] POCT GLUCOSE (AUTOMATED) 2024-10-12 13:09:00 Pedro Bah [facility] MR LUMBAR SPINE WO CONTRAST 2024-09-21 22:57:00 Betzaida Wheat [facility] URINALYSIS 2024-09-09 00:40:00 [facility] CONTRAST 2024-09-08 23:55:59 Ashlyn Cardoso [facility] PVR 2023-09-30 00:00:00 [facility] Encounters Start Date/Time End Date/Time Encounter Type Admission Type Attending Clinicians Care Facility Care Department Encounter ID Source 2024-11-03 11:22:01 Outpatient BozmanMary hicks STLMLC ST[facility] [id number] [facility] 2024-09-27 08:50:00 Outpatient BozmanMary hicks STLMLC [facility] [id number] [facility] 2024-09-15 09:00:01 Outpatient BozmanMary hicks STLMLC ST[facility] [id number] [facility] 2024-05-24 12:07:00 Outpatient Mary Alberto STLMLC ST[facility] [id number] [facility] 2023-10-12 11:49:00 Outpatient Mary Alberto STLMLC ST[facility] [id number] [facility] 2023-01-13 08:24:01 Outpatient BozmanMary hicks STLMLC ST[facility] [id number] [facility] 2022-12-16 14:33:02 Outpatient BozmanMary hicks STLMLC ST[facility] [id number] [facility] 2022-11-11 08:03:02 Outpatient BozmanMary hicks STLMLC ST[facility] [id number] [facility] 2022-10-13 15:31:02 Outpatient BozmanMary hicks STLMLC ST[facility] [id number] [facility] 2022-09-16 11:26:01 Outpatient BozmanMary hicks STLMLC ST[facility] [id number] [facility] 2022-09-11 09:33:00 Outpatient BozmanMary hicks STLMLC ST[facility] [id number] [facility] 2022-06-13 09:11:01 Outpatient BozmanMary hicks STLMLC ST[facility] [id number] [facility] 2022-03-27 11:28:02 Outpatient BozmanMary hicks STLMLC ST[facility] [id number] [facility] 2022-03-17 09:41:01 Outpatient BozmanMary hicks STLMLC ST[facility] [id number] [facility] 2022-03-11 11:41:02 Outpatient BozmanMary hicks STLMLC ST[facility] [id number] [facility] 2022-03-06 14:55:01 Outpatient BozmanMary hicks STLMLC ST[facility] [id number] [facility] 2022-02-24 08:36:04 Outpatient BozmanMary hicks STLMLC ST[facility] [id number] [facility] 2022-02-07 11:10:02 Outpatient BozmanMary hicks STLMLC ST[facility] [id number] [facility] 2021-12-23 16:24:01 Outpatient BozmanMary hicks STLMLC ST[facility] [id number] [facility] 2021-10-21 14:49:01 Outpatient Bozman, Mary STLMLC ST[facility] [id number] [facility] 2021-09-04 14:26:58 Outpatient Bozman, Mary STLMLC STL[facility] [id number] [facility] 2021-09-04 14:23:10 Outpatient BozmanEsteban hicksa STLMLC STLMLC [id number] [facility] 2025-03-20 00:00:00 2025-03-20 17:17:[address] [facility] 1.2.840.114 350.1.13.10 4.2.7.2.686 [id number] 196 [id number] [facility] 2025-03-09 00:00:00 2025-03-09 00:00:00 OFFICE VISIT ESTAB PT LEVEL 4 STLMLC STLMLC [id number] [facility] 2025-02-23 00:00:00 2025-02-23 00:00:00 (TEL) STLMLC STLMLC [id number] [facility] 2025-02-08 00:00:00 2025-02-08 12:58:44 Refill Holley Ballard [facility] ([facility] 1.2.840.114 350.1.13.10 4.2.7.2.686 [id number] [facility] 2025-02-06 00:00:00 2025-02-06 00:00:00 (TEL) STLMLC STLMLC [id number] [facility] 2025-02-03 00:00:00 2025-02-03 00:00:00 (TEL) STLMLC STLMLC [id number] [facility] 2025-01-26 00:00:00 2025-01-27 15:00:09 Telephone Naty [facility] MEDICAL OFFICE BUILDING 1.2.840.114 350.1.13.10 4.2.7.2.686 [id number] [facility] 2025-01-24 00:00:00 2025-01-24 00:00:00 (TEL) STLMLC STLMLC [id number] [facility] 2025-01-10 00:00:00 2025-01-11 11:19:56 Telephone Naty [facility] MEDICAL OFFICE BUILDING 1.2.840.114 350.1.13.10 4.2.7.2.686 [id number] [facility] 2024-12-31 00:00:00 2025-01-01 11:54:[address] [facility] 1.2.840.114 350.1.13.10 4.2.7.2.686 [id number] [facility] 2024-12-30 16:30:00 2024-12-30 17:00:00 Telemedici ne Visit Holley Ballard [facility] ([facility]) 1.2.840.114 350.1.13.10 4.2.7.2.686 [id number] [facility] 2024-12-30 00:00:00 2024-12-30 14:44:30 [facility] 1.2.840.114 350.1.13.10 4.2.7.2.686 [id number] [facility] 2024-12-29 00:00:00 2024-12-29 14:41:35 [facility] 1.2.840.114 350.1.13.10 4.2.7.2.686 [id number] [facility] 2024-12-18 00:00:00 2024-12-19 16:18:47 [facility] 1.2.840.114 350.1.13.10 4.2.7.2.686 [id number] [facility] 2024-12-12 00:00:00 2024-12-13 10:55:31 [facility] 1.2.840.114 350.1.13.10 4.2.7.2.686 [id number] [facility] 2024-11-30 00:00:00 2024-11-30 00:00:00 (TEL) STLMLC STLMLC [id number] [facility] 2024-11-28 12:00:00 2024-11-28 13:46:07 [facility] 1.2.840.114 350.1.13.10 4.2.7.2.686 [id number] [facility] 2024-11-11 00:00:00 2024-11-11 16:17:23 Telephone [facility] MEDICAL OFFICE BUILDING 1.2.840.114 350.1.13.10 4.2.7.2.686 [id number] [facility] 2024-11-11 00:00:00 2024-11-11 00:00:00 OFFICE VISIT ESTAB PT LEVEL 4 STLMLC STLMLC [id number] [facility] 2024-11-03 00:00:00 2024-11-04 09:05:04 Telephone [facility] MEDICAL OFFICE BUILDING 1.2.840.114 350.1.13.10 4.2.7.2.686 [id number] [facility] 2024-10-31 00:00:00 2024-10-31 16:23:42 Telephone [facility] MEDICAL OFFICE BUILDING 1.2.840.114 350.1.13.10 4.2.7.2.686 [id number] [facility] 2024-10-25 00:00:00 2024-10-25 00:00:00 (TEL) STLMLC STLMLC [id number] [facility] 2024-10-21 00:00:00 2024-10-21 00:00:00 (TEL) STLMLC STLMLC [id number] [facility] 2024-10-12 06:54:00 2024-10-12 12:47:00 Outpatient R PEDRO BAH [facility] [id number] [facility] 2024-10-12 06:54:00 2024-10-12 12:47:00 Hospital Encounter NatyCharlottemiryam [facility] 1.2.840.114 350.1.13.10 4.2.7.2.686 [id number] [facility] 2024-10-12 08:40:00 2024-10-12 11:36:00 Surgery Pedro Bah [facility] 1.2.840.114 350.1.13.10 4.2.7.2.686 [id number] [facility] 2024-10-11 00:00:00 2024-10-11 00:00:00 (TEL) STLMLC STLMLC [id number] [facility] 2024-10-10 12:30:00 2024-10-10 12:45:00 Corn Shredder Visit Pob, [facility] Tico Ace Poelinor, [facility] Main [facility] NAL BUILD[facility] 1.2.840.114 350.1.13.10 4.2.7.2.686 [id number] [facility] 2024-10-10 12:30:00 2024-10-10 12:30:00 Outpatient TICO GRADY [facility] [id number] [facility] 2024-09-29 13:15:00 2024-09-29 13:30:00 Office Visit Pedro Bah [facility] MED[facility] BU[facility] 1.2.840.114 350.1.13.10 4.2.7.2.686 [id number] [facility] 2024-09-29 00:00:00 2024-09-29 12:55:06 Prep For Surgery Pedro Bah [facility] ([facility]) [id number] [id number] [facility] 2024-09-21 15:37:02 2024-09-21 23:59:00 Hospital Encounter Betzaida Wheat [facility] AT COUNTS INCLUDE 234 BEDS AT THE [facility] [id number] [id number] [id number] [id number] [facility] 2024-09-21 14:00:00 2024-09-21 14:00:00 Office Visit Betzaida Wheat Julia [facility] [id number] [id number] [id number] [id number] [facility] 2024-09-19 00:00:00 2024-09-19 00:00:00 OFFICE VISIT ESTAB PT LEVEL 3 [facility]C [facility]C [id number] [facility] 2024-09-09 00:00:00 2024-09-09 00:00:00 (TEL) STLMLC STLMLC [id number] [facility] 2024-09-08 16:15:00 2024-09-08 19:47:00 Emergency X ADEEMIR GARCIAIL [facility] ERT [id number] [facility] 2024-09-08 16:15:00 2024-09-08 19:47:00 Emergency AderibiVicki oneilbril [facility] AT COUNTS INCLUDE 234 BEDS AT THE [facility] [id number] [id number] [id number] [id number] [facility] 2024-09-07 00:00:00 2024-09-07 00:00:00 OFFICE VISIT ESTAB PT LEVEL 3 STLMLC STLMLC [id number] [facility] 2024-08-29 00:00:00 2024-08-29 00:00:00 (TEL) STLMLC STLMLC [id number] [facility] 2024-08-25 00:00:00 2024-08-25 00:00:00 (TEL) STLMLC STLMLC [id number] [facility] 2024-06-20 00:00:00 2024-06-20 00:00:00 OFFICE VISIT ESTAB PT LEVEL 4 STLMLC STLMLC [id number] [facility] 2024-03-07 00:00:00 2024-03-07 00:00:00 OFFICE VISIT ESTAB PT LEVEL 4 STLMLC STLMLC [id number] [facility] 2024-03-07 00:00:00 2024-03-07 00:00:00 (TEL) STLMLC STLMLC [id number] [facility] 2024-01-01 00:00:00 2024-01-01 00:00:00 (TEL) STLMLC STLMLC [id number] [facility] 2023-12-01 00:00:00 2023-12-01 00:00:00 OFFICE VISIT ESTAB PT LEVEL 4 STLMLC STLMLC [id number] [facility] 2023-10-30 00:00:00 2023-10-30 00:00:00 (TEL) STLMLC STLMLC [id number] [facility] 2023-10-26 00:00:00 2023-10-26 00:00:00 (TEL) STLMLC STLMLC [id number] [facility] 2023-09-30 00:00:00 2023-09-30 00:00:00 OFFICE VISIT ESTAB PT LEVEL 4 STLMLC STLMLC [id number] [facility] 2023-09-17 00:00:00 2023-09-17 00:00:00 (TEL) STLMLC STLMLC [id number] [facility] 2023-09-11 00:00:00 2023-09-11 00:00:00 (TEL) STLMLC STLMLC [id number] [facility] 2023-08-25 00:00:00 2023-08-25 00:00:00 OFFICE VISIT ESTAB PT LEVEL 3 STLMLC STLMLC [id number] [facility] 2023-06-11 00:00:00 2023-06-11 00:00:00 (TEL) STLMLC STLMLC [id number] [facility] 2023-05-21 00:00:00 2023-05-21 00:00:00 OFFICE VISIT ESTAB PT LEVEL 3 STLMLC STLMLC [id number] [facility] 2023-02-11 00:00:00 2023-02-11 00:00:00 OFFICE VISIT ESTAB PT LEVEL 4 STLMLC STLMLC [id number] [facility] 2023-02-09 00:00:00 2023-02-09 00:00:00 (TEL) STLMLC STLMLC [id number] [facility] 2022-12-25 00:00:00 2022-12-25 00:00:00 (TEL) STLMLC STLMLC [id number] [facility] 2022-12-16 00:00:00 2022-12-16 00:00:00 (TEL) STLMLC STLMLC [id number] [facility] 2022-10-21 00:00:00 2022-10-21 00:00:00 (TEL) STLMLC STLMLC [id number] [facility] 2022-10-13 00:00:00 2022-10-13 00:00:00 (TEL) STLMLC STLMLC [id number] [facility] 2022-09-30 00:00:00 2022-09-30 00:00:00 (NV) Nurse Visit STLMLC STLMLC [id number] [facility] 2022-09-17 00:00:00 2022-09-17 00:00:00 (TEL) STLMLC STLMLC [id number] [facility] 2022-09-15 00:00:00 2022-09-15 00:00:00 OFFICE VISIT ESTAB PT LEVEL 4 STLMLC STLMLC [id number] [facility] 2022-09-15 00:00:00 2022-09-15 00:00:00 INIT ANNUAL MCR WELLNESS VISIT STLMLC STLMLC [id number] [facility] 2022-09-10 00:00:00 2022-09-10 00:00:00 (TEL) STLMLC STLMLC [id number] [facility] 2022-09-03 00:00:00 2022-09-03 00:00:00 OFFICE VISIT EST PT LEVEL 3 STLMLC STLMLC [id number] [facility] 2022-07-29 00:00:00 2022-07-29 00:00:00 (TEL) STLMLC STLMLC [id number] [facility] 2022-07-22 00:00:00 2022-07-22 00:00:00 (NV) Nurse Visit STLMLC STLMLC [id number] [facility] 2022-07-15 00:00:00 2022-07-15 00:00:00 (NV) Nurse Visit STLMLC STLMLC [id number] [facility] 2022-07-09 00:00:00 2022-07-09 00:00:00 (TEL) STLMLC STLMLC [id number] [facility] 2022-07-08 00:00:00 2022-07-08 00:00:00 (NV) Nurse Visit STLMLC STLMLC [id number] [facility] 2022-07-01 00:00:00 2022-07-01 00:00:00 (TEL) STLMLC STLMLC [id number] [facility] 2022-07-01 00:00:00 2022-07-01 00:00:00 (NV) Nurse Visit STLMLC STLMLC [id number] [facility] 2022-06-26 00:00:00 2022-06-26 00:00:00 (TEL) STLMLC STLMLC [id number] [facility] 2022-06-25 00:00:00 2022-06-25 00:00:00 (TEL) STLMLC STLMLC [id number] [facility] 2022-06-24 00:00:00 2022-06-24 00:00:00 (NV) Nurse Visit STLMLC STLMLC [id number] [facility] 2022-06-17 00:00:00 2022-06-17 00:00:00 (NV) Nurse Visit STLMLC STLMLC [id number] [facility] 2022-06-16 00:00:00 2022-06-16 00:00:00 OFFICE VISIT ESTAB PT LEVEL 4 STLMLC STLMLC [id number] [facility] 2022-06-10 00:00:00 2022-06-10 00:00:00 (NV) Nurse Visit STLMLC STLMLC [id number] [facility] 2022-06-03 00:00:00 2022-06-03 00:00:00 (NV) Nurse Visit STLMLC STLMLC [id number] [facility] 2022-05-27 00:00:00 2022-05-27 00:00:00 (NV) Nurse Visit STLMLC STLMLC [id number] [facility] 2022-05-20 00:00:00 2022-05-20 00:00:00 (NV) Nurse Visit STLMLC STLMLC [id number] [facility] 2022-05-13 00:00:00 2022-05-13 00:00:00 (NV) Nurse Visit STLMLC STLMLC [id number] [facility] 2022-05-06 00:00:00 2022-05-06 00:00:00 (NV) Nurse Visit STLMLC STLMLC [id number] [facility] 2022-04-21 00:00:00 2022-04-21 00:00:00 ambulatory STLMLC STLMLC [id number] [facility] 2022-03-31 00:00:00 2022-03-31 00:00:00 ambulatory STLMLC STLMLC [id number] [facility] 2022-03-20 00:00:00 2022-03-20 00:00:00 ambulatory STLMLC STLMLC [id number] [facility] 2022-03-17 00:00:00 2022-03-17 00:00:00 ambulatory STLMLC STLMLC [id number] [facility] 2022-03-14 00:00:00 2022-03-14 00:00:00 ambulatory STLMLC STLMLC [id number] [facility] 2022-03-13 00:00:00 2022-03-13 00:00:00 ambulatory STLMLC STLMLC [id number] [facility] 2022-03-11 00:00:00 2022-03-11 00:00:00 ambulatory STLMLC STLMLC [id number] [facility] 2022-03-06 00:00:00 2022-03-06 00:00:00 ambulatory STLMLC STLMLC [id number] [facility] 2022-02-26 00:00:00 2022-02-26 00:00:00 ambulatory STLMLC STLMLC [id number] [facility] 2022-02-07 00:00:00 2022-02-07 00:00:00 ambulatory STLMLC STLMLC [id number] [facility] 2021-12-20 00:00:00 2021-12-20 00:00:00 ambulatory STLMLC STLMLC [id number] [facility] 2021-11-12 00:00:00 2021-11-12 00:00:00 ambulatory STLMLC STLMLC [id number] [facility] 2021-10-16 00:00:00 2021-10-16 00:00:00 ambulatory STLMLC STLMLC [id number] [facility] 2021-07-31 00:00:00 2021-07-31 00:00:00 ambulatory STLMLC STLC [id number] [facility] 2021-07-24 00:00:00 2021-07-24 00:00:00 (TEL) STLMLC STLMLC [id number] [facility] 2021-07-18 00:00:00 2021-07-18 00:00:00 OFFICE VISIT EST PT LEVEL 3 STLMLC STLC [id number] [facility] Results Test Description Test Time Test Comments Results Result Co mments Source POCT GLUCOSE (AUTOMATED)2024-10-12 17:48:33* Test Item Value Reference Range Interpretation Comme nts POCT GLU (test code = 4404533149) 202 mg/dL 70-110 H Lab Interpretation (test cod e = [id number]) [facility] 17:48:33* Test Item Value Reference Range Interpretation Comme nts POCT GLU (test code = 6232061034) 202 mg/dL 70-110 H Lab Interpretation (test cod e = 13304-2) [facility] 1 [id number] 17:07:58These images do not require a Radiology diagnostic report.[facility] 1 [id number] 17:07:58These images do not require a Radiology diagnostic report.[facility] - [facility] [id number] 14:00:00* Test Item Value Reference Range Interpretation Comme nts ABO & RH (test code = 20) B POSITIVE IAT (test code = 1185) Negative [facility] [id number] 14:00:00* Test Item Value Reference Range Interpretation Comme nts ABO & RH (test code = 20) B POSITIVE IAT (test code = 1185) Negative [facility]2024-10-12 13:13:55* Test Item Value Reference Range Interpretation Comme nts POCT GLU (test code = 8747302919) 144 mg/dL 70-110 H Lab Interpretation (test cod e = 61906-0) [facility]normal [facility]2024-10-12 13:13:55* Test Item Value Reference Range Interpretation Comme nts POCT GLU (test code = 3652822974) 144 mg/dL 70-110 H Lab Interpretation (test cod e = 13720-3) [facility]normal [facility] wo [id number] 23:38:02 MR LUMBAR SPINE WO CONTRAST PROVIDED [...] The visualized paraspinal soft tissues are grossly unremarkable.[facility] WO [id number] 00:10:03CT LUMBAR SPINE WO CONTRAST HISTORY: ?Low [...] seen. The visualized abdominal cavitycontents are otherwise unremarkable.[facility] 2022-06-16 00:00:00* Test Item Value Reference [...] L3-L5 laminectomy David Loya MD Neurosurgery, PGY-7 [facility] Inquiries, Page [phone] [facility] Inquiries, ([phone]) Chief Complaint: back pain, RLE pain HPI: [...] the services by signing the medical record. SEINER Associated attestation - Pedro Bah MD - 10/12/2024 8:51 AM FISH SEINER I agree with the note by Dr. Loya with no changes. [facility] [employer] Notes Date/Time Note Provider Source 2025-03-20 11:53:47 Patient requesting refill of Baclofen to get him to nx appt scheduled 05/08 [facility] [employer] 2025-01-27 14:59:22 Spoke to patient and told him that Baclofen is what was prescribed and stated that he was just making sure. Patient thanked me for calling. Tracy Albarran RN [facility] 2025-01-27 13:42:20 Andrés Sheriff is a 69 year old male Pt calling nurse back Please advise Tavia Neal [facility] 2025-01-27 12:37:17 Attempted to call patient, no answer, voice mailbox full. T [facility] 2025-01-26 12:38:34 Andrés Sheriff is a 69 year old male Patient stating his leg is starting to shake again and can hardly pick anything up with his right hand, he doesn't see Alondra Ballard until 02/06 and would like a refill of the same medication she gave him last time for this please send to [facility] [address] [place] [address] Viridiana Purvis [facility] 2025-01-11 11:19:01 Spoke to patient and explained that we don't manage pain and told him that we put referral in for Pain Clinic. Patient verbalized understanding. T [facility] 2025-01-10 15:31:59 Andrés Sheriff is a 69 year old male Patient requesting a refill for his pain medication. States his back is still very painful and he doesn't have his follow up until 02/06. Please call into [facility] [address] [place] [address] Viridiana Purvis [facility] 2024-12-29 14:33:57 Spoke to patient and he stated he is having back pain 05/19. Medrol pack called into pharmacy and scheduled patient for telehealth appointment 12/30/24. Patient verbalized understanding. Tracy Albarran RN [facility] 2024-12-29 14:05:53 Attempted to call patient x2 and voice mailbox is full. [facility] 2024-12-29 11:08:32 Andrés Sheriff is a 69 year old male Patient stating his legs are twitching and is in a lot of pain he also states he doesn't feel he is healing as quickly as he should. his follow up isn't until 02/06 and would like to know if anything can be called in. Please call him back at [phone] [facility] [address] [place] [address] Viridiana Purvis [facility] 2024-12-13 10:55:07 I left voicemail advising of Dr. Bah message, call back number given. Magalis Melgar RN [facility] 2024-12-13 07:23:32 Hi, We do not generally prescribe narcotic pain medication over two months out from a standard laminectomy, and at time of last visit patient appeared to be healing as expected. If he has had a significant status change, he should come into the clinic for an evaluation. We can assist with non-narcotic medications, but that is what he already has prescribed. -RL [facility] 2024-12-12 15:19:10 Routing to provider for review of message T [facility] 2024-12-12 15:04:23 [id number] Andrés Sheriff is a 69 year old male [phone] (home) Patient is wanting pain medication as the previous medication is not helping. Patient states he is in severe pain but did not elaborate and states he cannot wait. Please call him as soon as possible, he wants medication the same day as his call [facility] [address] [place] [address] - [facility] [address] Please review and advise. Thank you. Jocelynn Prajapati [facility] 2024-11-11 16:15:29 I spoke with patient and advised of refill, patient allergic to NSAID's and unable to take ibuprofen, advised to alternate tramadol with tylenol and take only as needed, verbalized understanding and appreciation. Magalis Melgar RN [facility] 2024-11-11 15:51:53 Will provide limited and final refill of tramadol and valium. Alternate tramadol with ibuprofen 600 mg every 6 hours. [facility] 2024-11-11 14:25:07 Routing to provider for recommendations [facility] 2024-11-11 13:52:37 Andrés Sheriff is a 69 year old male Patient requesting a refill on his Valium and Tramadol states his back is still hurting and his leg is starting to switch again. States he has an appt with Dr Bah on 11/28 please send scripts to [facility] [address] [place] [address] Viridiana Purvis [facility] 2024-11-04 09:04:21 Patient was notified via voicemail. Magalis Melgar RN [facility] 2024-11-03 15:46:43 I'll provide a short course of tramadol to pharmacy on file. T [facility] 2024-11-03 12:21:38 Routing to provider for review T [facility] 2024-11-03 11:58:17 [id number] Andrés Sheriff is a 69 year old male [phone] (home) Patient states Diazapam(Valium) has helped tremendously with the leg pain but patient states he still has lower back pain and would like to see if something can be prescribed for this pain. [facility] [address] [place] [address] - [address] Please review and advise. Thank you. Jocelynn Prajapati [facility] 2024-10-31 16:20:39 I spoke with patient and advised of medication sent to pharmacy, will monitor symptoms with Valium this evening and will call back tomorrow if condition persist or worsens, patient verbalized understanding and appreciation. Magalis Melgar RN [facility] 2024-10-31 16:18:24 Valium 5 mg sent to pharmacy on file. If symptoms persist may schedule w/TOWEL INSPECTOR. T [facility] 2024-10-31 15:59:57 I spoke with patient [...] provider and call back with further recommendations. T [facility] 2024-10-31 15:20:42 Andrés Sheriff is a 69 year old male DOS:10/12/[address] Bah. The patient reports experiencing severe pain, indicating that he is unable to move, walk, or stand due to the intensity of the discomfort in his legs. He also notes that his legs and arms are shaking.patient would like to speak to nurse no other symptoms reported please advise. [phone] Lucille Moss V [facility] 2024-10-12 09:48:33 BRIEF OPERATIVE NOTE Date of Surgery: 10/12/2024 Surgeons and Role: * Pedro Bah MD - Primary * David Loya MD - Resident - Assisting Pre-Op Diagnosis: Lumbar radiculopathy [M54.16] Post-Op Diagnosis Codes: * Lumbar radiculopathy [M54.16] Procedures: Procedure(s) (LRB): POSTERIOR LAMINECTOMY (Bilateral) CPT: 01905, 72900, 78363, Any Complications Encounters: none Estimated Blood Loss: 100cc Specimens Removed: * No specimens in log * * No implants in log * Patient's Condition: Stable to PACU Findings: Significant canal stenosis, well decompressed foramen afterwards Any other important information: None, dermabond for skin Please see dictated operative report for additional detail. [facility] 2024-10-10 12:30:00 Summary: Initial TS complete Images from the original note were not included. Venipuncture collection performed by clean technique on the left anticubitus. Total of 1 attempts were made. Slight pressure and a bandage/dressing were applied to the site(s). The patient experienced no complications. The following specimens were processed according to instructions and sent to [facility] laboratories per lab order on 10/10/2024 : LT BLUE SST RED LAV 1 PPT DK GREEN (LiHep) DK GREEN (SodH) CERVANTES DK BLUE (K2) DK BLUE (S) ACD Blood Culture NIPT/NTD [facility] 2024-09-08 19:46:18 Patient is awake and alert, oriented x4, speech is clear and appropriate, ambulatory with a steady gait, wheelchair to lobby. Advised to seek medical attention for new/prolonged/worsening of symptoms. Respirations even and unlabored, no distress. SEINER Taisha Cruz RN [facility] 2024-09-08 17:53:35 Pt urinated prior to room placement, pt given water. [facility] 2024-09-08 16:11:04 CC: patient presents to the ER with complaints of right leg numbness that began August 30. Patient states he was evaluated by Wes in [place]. Patient states pain radiates from hip to heel and states he cannot put pressure on the foot. Awake, alert, oriented, resp reg unlabored, skin warm and dry, color appropriate for race, moves all ext without difficulty, using wheelchair. Normally uses cane. Appears in no distress. A Vargas RN [facility]
[2025-04-05 15:35] LABS: Influenza A Ag Negative; Influenza B Ag Negative; SARS-CoV-2 Antigen Rapid Res Negative (Negative)
--- NOTE | 2025-04-05 15:40 | RAD REPORT ---
EXAMINATION: US bilateral LOWER EXTREMITY VENOUS DOPPLER CLINICAL INDICATION: Leg swelling TECHNIQUE: Sonographic evaluation of the veins of the lower extremity bilaterally formed.Grayscale, c olor and spectral analysis performed on all vessels COMPARISON: 2022 FINDINGS: The common femoral, superficial femoral, greater saphenous, popliteal and posterior tibial veins bila terally are compressible and demonstrate augmentation. Doppler demonstrates good flow. IMPRESSION: No evidence of deep venous thrombosis involving either lower extremity
--- NOTE | 2025-04-05 15:40 | RAD REPORT ---
Procedure: Chest Single View HISTORY: Shortness of breath COMPARISON: 2023 FINDINGS: The lungs appear clear of acute infiltrate. No significant pleural effusion noted. The heart is borderline enlarged. . IMPRESSION: No acute abnormality is displayed.
[2025-04-05 16:04] LABS: Absolute Lymphocytes (CBC) 1.8 K/uL (0.7-4.9); Hematocrit 38.1 % (39.6-49.0); Hemoglobin 12.6 g/dL (13.6-17.9); MCH 27.2 pg (27.0-35.0); MCHC 33.1 g/dL (32.0-36.0); MCV 82.2 fL (80-100); MPV 7.9 fL (7.6-11.3); Nucleated RBC Absolute Count 0.0 (0-0); Nucleated Red Blood Cells % 0.1 % (0-0); RBC Red Blood Cell Count 4.63 M/uL (4.33-5.43); White Blood Count 9.00 thou/uL (4.3-10.9)
[2025-04-05 16:39] LABS: Anion Gap 10.9 mEq/L (5.0-15.0); BUN Blood Urea Nitrogen 10.0 mg/dL (7-18); Glucose Level 158.0 mg/dL (74-106); Magnesium 1.8 mg/dL (1.6-2.4); NT PRO-BNP 68.0 pg/mL (<125); Potassium 3.9 mEq/L (3.5-5.1); Troponin High Sensitivity 11.1 pg/mL (<58.9)
--- NOTE | 2025-04-05 18:09 | ER ---
Nurse's Notes [facility] Name: Neftali Gill Jr Age: 70 yrs Sex: Male : 1955 Arrival Date: 04/05/2025 Time: 14:24 Bed 7 Private MD: Diagnosis: Cough;Edema, unspecified Presentation: 04/05 14:39 Chief complaint: Patient states: chest pains X 1 week, has been taking Mucinex, reports iw mild cough, and his right foot/ankle has been swollen, he has a toenail that is falling off. Coronavirus screen: At this time, the client does not indicate any symptoms associated with coronavirus-19. Ebola Screen: No symptoms or risks identified at this time. Initial Sepsis Screen: Does the patient meet any 2 criteria? No. Patient's initial sepsis screen is negative. Does the patient have a suspected source of infection? No. Patient's initial sepsis screen is negative. Risk Assessment: Do you want to hurt yourself or someone else? Patient reports no desire to harm self or others. Onset of symptoms was March 29, 2025. 14:39 Method Of Arrival: Ambulatory iw 14:39 Acuity: DUNCAN 3 iw Historical: - Allergies: 14:41 Cephalexin; iw 14:41 ACES; iw 14:41 Diovan; iw 14:41 Lisinopril; iw 14:41 nebivolol HCl; iw 14:41 NSAIDS; iw 14:41 valsartan; iw - PMHx: 14:41 ANGIOEDEMA; High Cholesterol; NIDDM; GERD; Hypertension; iw - PSHx: 14:41 Cholecystectomy; TURP; iw - Immunization history:: Adult Immunizations unknown. - Infectious Disease History:: Denies. - Social history:: Smoking status: Patient reports the use of cigarette tobacco products. Screenin:00 [facility] ED Fall Risk Assessment (Adult) History of falling in the last 3 months, ph including since admission No falls in past 3 months (0 pts) Confusion or Disorientation No (0 pts) Intoxicated or Sedated No (0 pts) Impaired Gait No (0 pts) Mobility Assist Device Used No (0 pt) Altered Elimination No (0 pt) Score/Fall Risk Level 0 - 2 = Low Risk Oriented to surroundings, Maintained a safe environment, Hourly rounding (assess needs \T\ fall precautionary measures) done, Used ambulatory aids as needed (educated on \T\ assisted with). Abuse screen: Denies threats or abuse. Denies injuries from another. Nutritional screening: No deficits noted. Tuberculosis screening: No symptoms or risk factors identified. Assessment: 16:30 General: Appears in no apparent distress. comfortable, Behavior is calm, cooperative. ph Pain: Complains of pain in chest Pain does not radiate. Pain began 2-3 days ago. Neuro: Level of Consciousness is awake, alert, obeys commands, Oriented to person, place, time, situation. Cardiovascular: Reports chest pain. Respiratory: Reports pain with cough pain with respiration Airway is patent Respiratory effort is even, unlabored, Respiratory pattern is regular, symmetrical. Derm: Skin is pink, warm \T\ dry. Vital Signs: 14:39 BP 171 / 89; Pulse 72; Resp 16; Temp 98.9; Pulse Ox 98% on R/A; iw 17:00 BP 172 / 89; Pulse 70; Resp 18; Pulse Ox 98% on R/A; ph 18:30 BP 182 / 76; Pulse 68; Resp 18; Temp 97.9; Pulse Ox 99% on R/A; ph ED Course: 14:27 Patient arrived in ED. mr 14:39 [facility] Byrne [facility]-C [facility] kb 14:39 Enmanuel Ramirez MD is Attending Physician. kb 14:41 Triage completed. iw 15:17 US Extremity Venous W Compression Dima In Process Unspecified. EDMS 15:24 XRAY Chest (1 view) In Process Unspecified. EDMS 15:51 Arm band placed on Patient placed in an exam room, on a stretcher, on supervisor landscape, ph on pulse oximetry. 16:00 Initial lab(s) drawn, by me, sent to lab. Inserted saline lock: 20 gauge in right rk3 antecubital area, using aseptic technique. Blood collected. Flushed with 10 mL NS. 16:44 Tiera Gifford, RN is Primary Nurse. ph 17:01 Patient has correct armband on for positive identification. Bed in low position. Call ph light in reach. Side rails up X 1. metal annealer on. Pulse ox on. NIBP on. Door closed. Noise minimized. Warm blanket given. 17:01 No provider procedures requiring assistance completed. Patient maintains SpO2 ph saturation greater than 95% on room air. 18:50 IV discontinued, intact, bleeding controlled, No redness/swelling at site. Pressure ph dressing applied. Administered Medications: No medications were administered Medication: 17:00 VIS not applicable for this client. ph Outcome: 18:09 Discharge ordered by . florentino 18:52 Discharged to home ambulatory, jp5 18:52 Condition: stable 18:52 Discharge instructions given to patient, Instructed on discharge instructions, follow up and referral plans. medication usage, Demonstrated understanding of instructions, follow-up care, medications, Prescriptions given X 1, 18:53 Patient left the ED. jp5 Signatures: Dispatcher [employer] EDMS Leida Byrne, AIRPLANE CABIN ATTENDANT-C AIRPLANE CABIN ATTENDANT-Ckb Mile Vargas, Reg Reg mr Nedra Lakhani, RN RN iw Tiera Gifford RN RN Indu Bueno, RN RN jp5 Mariaa Holloway rk3 Corrections: (The following items were deleted from the chart) 15:28 14:39 BP 171 / 89; Pulse 72bpm; Resp 16bpm; Pulse Ox 98% RA; Temp 98.9F; iw iw
--- NOTE | 2025-04-05 18:09 | EDPHYS ---
Physician Documentation [facility] Name: Neftali Gill Jr Age: 70 yrs Sex: Male : 1955 Arrival Date: 04/05/2025 Time: 14:24 Bed 7 Private MD: ED Physician Enmanuel Ramirez HPI: 04/05 16:47 This 70 yrs old Black Male presents to ER via Ambulatory with complaints of Chest Pain, kb Leg Swelling. 16:47 Pt is a 70 year old male who presents for cough that has been causing chest discomfort kb for one week. States he isn't able to smoke cigarettes due to chest irritation. Also reports swelling to right leg that he believes is caused by an infection because he has had cellulitis in the past. Requests antibiotics. Historical: - Allergies: 14:41 Cephalexin; iw 14:41 ACES; iw 14:41 Diovan; iw 14:41 Lisinopril; iw 14:41 nebivolol HCl; iw 14:41 NSAIDS; iw 14:41 valsartan; iw - PMHx: 14:41 ANGIOEDEMA; High Cholesterol; NIDDM; GERD; Hypertension; iw - PSHx: 14:41 Cholecystectomy; TURP; iw - Immunization history:: Adult Immunizations unknown. - Infectious Disease History:: Denies. - Social history:: Smoking status: Patient reports the use of cigarette tobacco products. ROS: 16:12 Constitutional: As per HPI kb Exam: 16:12 Constitutional: This is a well developed, well nourished patient who is awake, alert, kb and in no acute distress. Head/Face: Normocephalic, atraumatic. ENT: Moist Mucous membranes Cardiovascular: Regular rate Respiratory: Respirations even and unlabored. No increased work of breathing. Talking in full sentences Abdomen/GI: Soft, non-tender. No distention Skin: Warm, dry with normal turgor. Normal color. MS/ Extremity: Pulses equal, no cyanosis. Neurovascular intact. Full, normal range of motion. Neuro: Awake and alert, GCS 15, oriented to person, place, time, and situation. 16:12 Cardiovascular: Edema: 2+ pitting edema to right lower extremity, 1+ to left , 16:12 ECG was reviewed by the Attending Physician. Vital Signs: 14:39 BP 171 / 89; Pulse 72; Resp 16; Temp 98.9; Pulse Ox 98% on R/A; iw 17:00 BP 172 / 89; Pulse 70; Resp 18; Pulse Ox 98% on R/A; ph 18:30 BP 182 / 76; Pulse 68; Resp 18; Temp 97.9; Pulse Ox 99% on R/A; ph MDM: 14:39 Medical Screening Exam initiated kb 18:08 Differential diagnosis: dvt, arrhythmia, acute mi, covid, flu, uri, pneumonia, kb cellulitis. Data reviewed: vital signs, nurses notes. Counseling: I had a detailed discussion with the patient and/or guardian regarding the historical points, exam findings, and any diagnostic results supporting the discharge/admit diagnosis, lab results, radiology results, the need for outpatient follow up, a family practitioner, to return to the emergency department if symptoms worsen or persist or if there are any questions or concerns that arise at home. 04/05 14:46 Order name: Basic Metabolic Panel; Complete Time: 16:42 04/05 14:46 Order name: CBC with Diff; Complete Time: 16:28 04/05 14:46 Order name: Magnesium; Complete Time: 16:42 04/05 14:46 Order name: NT PRO-BNP; Complete Time: 16:42 04/05 14:46 Order name: Troponin HS; Complete Time: 16:42 04/05 14:46 Order name: COVID-19 Ag + Flu A+B Ag; Complete Time: 15:43 04/05 14:46 Order name: US Extremity Venous W Compression Dima; Complete Time: 15:43 04/05 14:46 Order name: XRAY Chest (1 view); Complete Time: 15:43 04/05 14:46 Order name: Cardiac monitoring; Complete Time: 16:00 04/05 14:46 Order name: EKG - Nurse/Tech; Complete Time: 14:58 04/05 14:46 Order name: IV Saline Lock; Complete Time: 16:00 04/05 14:46 Order name: Labs collected and sent; Complete Time: 16:00 04/05 14:46 Order name: O2 Per Protocol; Complete Time: 16:00 04/05 14:46 Order name: O2 Sat Monitoring; Complete Time: 16:00 EC:12 Rate is 65 beats/min. Rhythm is regular. QRS Hester is Normal. MA interval is normal at kb 166 msec. QRS interval is normal at 88 msec. QT interval is normal at 434 msec. Administered Medications: No medications were administered Disposition Summary: 04/05/25 18:09 Discharge Ordered Notes: Location: Home kb Condition: Stable kb Diagnosis - Cough kb - Edema, unspecified kb Followup: kb - With: Emergency Department - When: As needed - Reason: Worsening of condition Followup: kb - With: Private Physician - When: 2 - 3 days - Reason: Recheck today's complaints, Continuance of care, Re-evaluation by your physician Discharge Instructions: - Discharge Summary Sheet kb - Cough, Adult, [id number] kb - Peripheral Edema kb Forms: - Medication Reconciliation Form kb - Antibiotic Education kb - Prescription Opioid Use kb - Patient Portal Instructions kb - Leadership Thank You Letter kb Prescriptions: - Doxycycline Hyclate 100 mg Oral Tablet - take 1 tablet ORAL route every 12 hours; 20 tablet; Refills: 0, Product kb Selection Permitted Addendum: 04/07/2025 13:29 Co-signature as Attending Physician, Enmanuel Ramirez MD I agree with the assessment and c ramirez plan of care. Signatures: Dispatcher [employer] EDMS Leida Byrne, STRATEGIC COMMUNICATIONS MANAGER-C STRATEGIC COMMUNICATIONS MANAGER-Treb Enmanuel Ramirez MD MD cha Williams, Irene, RN RN iw Tiera Gifford RN RN ph Corrections: (The following items were deleted from the chart) 04/05 14:46 14:46 BASIC METABOLIC PANEL+C.LAB.BRZ ordered. EDMS EDMS 14:46 14:46 CBC+H.LAB.BRZ ordered. EDMS EDMS 14:46 14:46 MAGNESIUM+C.LAB.BRZ ordered. EDMS EDMS 14:46 14:46 PROBNP+C.LAB.BRZ ordered. EDMS EDMS 14:46 14:46 Troponin High Sensitivity+C.LAB.BRZ ordered. EDMS EDMS 14:46 14:46 COVID-19 Ag + Flu A+B Ag+I.LAB.BRZ ordered. EDMS EDMS 14:46 14:46 Chest Single View+RAD.RAD.BRZ ordered. EDMS EDMS
[2025-04-05 22:58] VITALS: BP 171/89; TEMP 98.9; O2SAT 98
== END 2025-04-05 18:53 | disposition home or self-care (01) ==
LOC: ER 14:24
DX: R05.9 Cough, unspecified (principal); R60.9 Edema, unspecified; Z11.52 Encounter for screening for COVID-19; Z72.0 Tobacco use
CPT/HCPCS: 36415; 71045; 80048; 83735; 83880; 84484; 85025; 87428; 93005; 93970; 99284

== ENCOUNTER 2025-04-28 09:49 | Emergency (ER) | payer OTHER ==
[2012-02-26 16:49] VITALS: BP 176/79
[2025-04-28] MEDS ORDERED: EPINEPHrine 1 MG/10 ML SYR IV ONE (09:50)
[2025-04-28] MEDS ORDERED: NA CHLORIDE 0.9% 1,000 ML IV ONE (09:50)
--- OUTSIDE RECORDS SUMMARY | 2025-04-28 09:55 | XMS REPORT | Continuity of Care Document ---
Author Name Unknown Address [address] [facility] [place] [address] [facility] [address] [facility] [place] [address] Care Team Providers Care Monitoring Specialist Name Role Phone Mary Alberto Primary Care Physician [phone] Mary Alberto Attending Clinician Unavailable Holley Ramos Attending Clinician [phone] ePdro Bah MD Attending Clinician [phone] PEDRO BAH Attending Clinician Unavailable Pob, [facility] Attending Clinician UnavailTico De La Vega MD Attending Clinician [phone] TICO ACE Attending Clinician Unavail able Betzaida Motley Attending Clinician [phone] Lita Voss Attending Clinician [phone] ASHLYN CARDOSO Attending Clinician Unavailab le Ashlyn Cardoso NP Attending Clinician [phone] PEDRO BAH Admitting Clinician Unavailable Pedro Bah MD Admitting Clinician [phone] ASHLYN CARDOSO Admitting Clinician Unavailab le Payers Payer Name Policy Type Policy Number Effective Date Expirati on Date Source ANIL LIAO PLS O [id number] 2022 00:00:00 2024 00:00:00 [employer] O 111 [id number] 2022 00:00:00 [facility] Problems Condition Name Condition Details Condition Category Status Onset Date Resolution Date Last Treatment Date Treating Clinician Comments Source Lumbar radiculopa thy Lumbar radiculopa thy Disease Active 09-29 00:00: 00 [facility] 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 and lower extremity pain 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 and lower extremity pain Disease Active 09-08 00:00: 00 [facility] Acute right-side d low back pain with right-side d sciatica Acute right-side d low back pain with right-side d sciatica Disease Active 09-08 00:00: 00 [facility] Type 2 diabetes mellitus without complicati on Type 2 diabetes mellitus without complicati on Disease Active 03-26 00:00: 00 [facility] Essential hypertensi on Essential hypertensi on Disease Active 03-26 00:00: 00 [facility] Type 2 diabetes mellitus without complicati on Type 2 diabetes mellitus without complicati on Disease Active 03-26 00:00: 00 [facility] Obesity Obesity Disease Active 03-26 00:00: 00 [facility] Chest pain Chest pain Disease Active 03-25 00:00: 00 [facility] [id number] Detrusor instabilit y Problem [facility] [id number] Urge incontinen ce Problem [facility] [id number] BMI 28.0-28.9, adult Problem [facility] [id number] Diarrhea, functional Problem [facility] 0840519 Primary insomnia Problem [facility] [id number] Lumbar back pain with radiculopa thy affecting lower extremity Problem [facility] [id number] Disorder of urinary system, unspecifie d Problem [facility] Frequency Frequency Problem Comm on [facility] Comprehens ladi eye examinatio n (procedure ) Routine eye exam Problem Common [facility] [id number] Current every day smoker Problem [facility] [id number] Right upper quadrant abdominal pain Problem [facility] Seasonal allergic rhinitis Seasonal allergic reaction Problem [facility] Peripheral neuropathy Peripheral neuropathy Problem [facility] Disturbanc e of skin sensation Disturbanc e of skin sensation Problem [facility] Angioedema Angioedema Problem Co mmon [facility] Hypertensi on Hypertensi on Problem [facility] [id number] Wound of skin Problem [facility] [id number] S/P TURP (status post transureth ral resection of prostate) Problem [facility] 94652595 Dysuria Problem [facility] [id number] Other postherpet ic nervous system involvemen t Problem [facility] [id number] Hospital discharge follow-up Problem [facility] 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 Problem [facility] [id number] Diarrhea of presumed infectious origin Problem [facility] [id number] Acquired anal stenosis Problem [facility] [id number] Lower urinary tract symptoms (LUTS) Problem [facility] [id number] BPH loc w urin obs/LUTS Problem [facility] Benign prostatic hyperplasi a BPH (benign prostatic hyperplasi a) Problem [facility] [id number] Prostatiti s, acute Problem [facility] [id number] ED (erectile dysfunctio n) of organic origin Problem [facility] [id number] USP current use of insulin Problem [facility] Overactive bladder OAB (overactiv e bladder) Problem [facility] Impotence of organic origin ED (erectile dysfunctio n) Problem [facility] [id number] 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 Problem [facility] 294334967 Type 2 diabetes mellitus with foot ulcer Problem [facility] [id number] Gastroesop hageal reflux disease without esophagiti s Problem [facility] 80432706 Urethritis Problem Comm on [facility] [id number] Incomplete emptying of bladder Problem [facility] Allergies, Adverse Reactions, Alerts Allergy Name Allergy Type Status Severity Reaction(s) Onset Date Inactive Date Treating Clinician Comments Source Aspirin Propensi ty to adverse reaction s Active Hives 03-25 00:00: 00 [facility] Valsarta n Propensi ty to adverse reaction s Active Swelling 03-25 00:00: 00 [facility] Lisinopr il Propensi ty to adverse reaction s Active Rash 03-25 00:00: 00 [facility] Nsaids (Non-Rafael roidal Anti-Inf lammator y Drug) Propensi ty to adverse reaction s Active Rash 03-25 00:00: 00 [facility] Nsaids (Non-Rafael roidal Anti-Inf lammator y Drug) Propensi ty to adverse reaction s Active Rash 03-25 00:00: 00 [facility] ASPIRIN DRUG INGREDI Active Hives 03-25 00:00: 00 [facility] VALSARTA N DRUG INGREDI Active Swelling 03-25 00:00: 00 [facility] acute hospital LISINOPR IL DRUG INGREDI Active Rash 03-25 00:00: 00 [facility] Nsaids (Non-Rafael roidal Anti-Inf lammator y Drug) Propensi ty to adverse reaction s Active Rash 03-25 00:00: 00 [facility] NSAIDS (NON-RAFAEL ROIDAL ANTI-INF LAMMATOR Y DRUG) Drug Class Active Rash 8-16 00:00: 00 [facility] lisinopr il lisinopr il Active angioedema [facility] valsarta n valsarta n Active angioedema [facility] 6335 Drug allergy Active Unknown [facility] cephalex in cephalex in Active shock [facility] carvedil ol carvedil ol Active Unknown [facility] Social History Social Habit Start Date Stop Date Quantity Comments Source History of tobacco use Smokes tobacco daily [facility] Tobacco use and exposure 2024-09-29 00:00:00 2024-09-29 00:00:00 Smokeless tobacco non-user [facility] History of Social function 2024-09-29 00:00:00 2024-09-29 00:00:00 [facility] Tobacco Comment 2024-09-29 00:00:00 2024-09-29 00:00:00 2-3 cigarettes per day [facility] Sex assigned at 1955 00:00:00 1955 00:00:00 [facility] Smoking Status Start Date Stop Date Source Smokes tobacco daily 2024-09-29 00:00:00 [facility] Never Smoker [facility] Medications Ordered Medication Name Filled Medication Name Start Date Stop Date Current Medication? Ordering Clinician Indication Dosage Frequency Signature (SIG) Comments Components Source BACLOFEN 5 mg tablet 9- 00:00: 00 Yes [id number] TAKE 1 TABLET BY MOUTH IN THE MORNING, 1 TABLET AT NOON, AND 1 TABLET IN THE EVENING [facility] baclofen 5 mg tablet 8-11 00:00: 00 04-19 00:00 :00 No [id number] 5mg Take 1 tablet by mouth in the morning and 1 tablet at noon and 1 tablet in the evening. [facility] Pregabalin 225 MG Pregabalin 225 MG 7-31 00:00: 00 No 1{capsu le} BID Pregabalin 225 MG BACLOFEN 5 mg tablet 02-08 00:00: 00 03-20 00:00 :00 No [id number] TAKE 2 TABLETS BY MOUTH IN THE MORNING, 2 TABLETS AT NOON, AND 2 TABLETS IN THE EVENING [facility] baclofen 5 mg tablet 12-30 00:00: 00 02-08 00:00 :00 No [id number] 10mg Take 2 tablets by mouth in the morning and 2 tablets at noon and 2 tablets in the evening. [facility] acetaminoph en-codeine 300-30 mg tablet 12-30 00:00: 00 01-07 04:59 :00 No [id number] 1{tbl} Take 1 tablet by mouth every 4 hours as needed for Pain (scale 4-6) for up to 7 days. Indication s: acute pain [facility] methylPREDN ISolone 4 mg tablets 12-29 00:00: 00 Yes Take by mouth SEE-INSTRU CTIONS. follow package directions [facility] METHOCARBAM OL 750 mg tablet 12-19 00:00: 00 12-30 00:00 :00 No [id number] 750mg Take 1 tablet by mouth 4 times daily [facility] methocarbam oL 750 mg tablet 11-28 00:00: 00 12-19 00:00 :00 No [id number] 750mg Take 1 tablet by mouth 4 (four) times daily. [facility] diazePAM (VALIUM) 5 mg tablet 4-04 00:00: 00 Yes [id number] 5mg Take 1 tablet by mouth every 8 (eight) hours as needed for Muscle Spasms. [facility] traMADoL 50 mg tablet 4-04 00:00: 00 11-19 04:59 :00 No [id number] 50mg Take 1 tablet by mouth every 6 (six) hours as needed for Pain (scale 4-6) for up to 7 days. Indication s: acute pain [facility] traMADoL 50 mg tablet 3-27 00:00: 00 11-11 04:59 :00 No [id number] 50mg Take 1 tablet by mouth every 6 (six) hours as needed for Pain (scale 4-6) for up to 7 days. Indication s: acute pain [facility] diazePAM (VALIUM) 5 mg tablet 10-31 00:00: 00 Yes [id number] 5mg Take 1 tablet by mouth every 8 (eight) hours as needed for Muscle Spasms. [facility] HYDROcodone -acetaminop hen (NORCO 5) tablet 1 tablet 10-12 17:30: 00 10-12 17:47 :00 No 1{tbl} 1 tablet, Oral, ONCE, 1 dose, On Thu10/12/24 at 1130, Routine, PACU [facility] lactated ringers IV infusion 1,000 mL 10-12 17:30: 00 10-12 21:09 :10 No 1000mL at 42 mL/hr, 1,000 mL, IV Infusion, CONTINUOUS , Starting on Thu10/12/24 at 1130, Until Thu10/12/24 at 1509, Routine, PACU [facility] HYDROmorpho ne (DILAUDID) injection 0.2 mg 10-12 17:29: 16 10-12 21:09 :10 No .2mg 0.2 mg, Slow IV Push, Q5MIN PRN, 10 doses, Starting on Thu10/12/24 at 1129, Until Thu10/12/24 at 1509, Routine, Pain (scale 7-10), PACU, Is this medication approved by a Faculty level provider? 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 Restricted medication : LEEANN DOUGLASS [facility] acute hospital FENTanyl (PF) (SUBLIMAZE) injection 25 mcg 10-12 17:29: 16 10-12 21:09 :10 No 25ug 25 mcg, Slow IV Push, Q5MIN PRN, 4 doses, Starting on Thu10/12/24 at 1129, Until Thu10/12/24 at 1509, Routine, Pain Scale 4-6, PACU [facility] bupivacaine (preserv free) (SENSORCAIN E MPF) 0.25 % (2.5 mg/mL) injection 10-12 17:13: 00 10-12 17:49 :15 No PRN, Starting on Thu10/12/24 at 1113, Until Thu10/12/24 at 1149, Routine, Intra-op [facility] methylPREDN ISolone acetate (DEPO-MEDRO L) injection 10-12 17:12: 00 10-12 17:49 :15 No PRN, Starting on Thu10/12/24 at 1112, Until Thu10/12/24 at 1149, Routine, [facility]-op [facility] vancomycin (VANCOCIN) 1 g in sodium chloride 0.9 % irrigation 10-12 15:49: 00 10-12 17:49 :14 No PRN, Starting on Thu10/12/24 at 0949, Until Thu10/12/24 at 1149, 1,000 mL, Intra-op [facility] thrombin topical solution 10-12 15:49: 00 10-12 17:49 :14 No PRN, Starting on Thu10/12/24 at 0949, Until Thu10/12/24 at 1149, Routine, Intra-op [facility] lidocaine-e pinephrine (XYLOCAINE WITH EPINEPHRINE ) 0.5 %-1:200,000 injection 10-12 15:40: 00 10-12 17:49 :14 No PRN, Starting on Thu10/12/24 at 0940, Until Thu10/12/24 at 1149, Routine, Intra-op [facility] docusate 100 mg capsule 10-12 00:00: 00 10-27 04:59 :00 No [id number] 100mg Take 1 capsule by mouth in the morning for 14 days. Take with a full glass of water. [facility] hospital methocarbam oL 500 mg tablet 10-12 00:00: 00 10-27 04:59 :00 No [id number] 500mg Take 1 tablet by mouth 4 (four) times daily for 14 days. Indication s: a uncontroll ed muscle contractio n with pain [facility] HYDROcodone -acetaminop hen 5-325 mg tablet 3-05 00:00: 00 10-20 04:59 :00 No [id number] 1{tbl} Take 1 tablet by mouth every 4 (four) hours as needed for Pain (scale 4-6) or Pain (scale 7-10) for up to 7 days. Indication s: acute pain [facility] traMADoL 50 mg tablet 2-20 00:00: 00 10-07 05:59 :00 No [id number] 50mg Take 1 tablet by mouth every 6 (six) hours as needed for Pain (scale 4-6) for up to 7 days. Indication s: acute pain [facility] methylPREDN ISolone (MEDROL, MICHAEL,) 4 mg tablets methylPREDN ISolone (MEDROL, MICHAEL,) 4 mg tablets 2-12 00:00: 00 Yes [id number] Take by mouth SEE-INSTRU CTIONS. follow package directions [facility] gabapentin 300 mg capsule gabapentin 300 mg capsule 2-12 00:00: 00 Yes [id number] 300mg Take 1 capsule by mouth 3 (three) times daily as needed for Pain (scale 7-10). [facility] Cyclobenzap rine HCl 10 MG Cyclobenzap rine HCl 10 MG 2-10 00:00: 00 No 1{table t} TID Cyclobenza huyen HCl 10 MG fentanyl PF (SUBLIMAZE (PF)) injection 50 mcg 09-09 01:15: 00 09-09 01:25 :00 No 50ug 50 mcg, Intramuscu lar, ONCE, 1 dose, On Narda 09/08/24 at 1915, STAT [facility] HYDROcodone -acetaminop hen (NORCO 5) tablet 1 tablet 09-08 22:30: 00 09-08 22:55 :00 No 1{tbl} 1 tablet, Oral, ONCE, 1 dose, On Narda 09/08/24 at 1630, YAHIR [facility] methocarbam oL (ROBAXIN) tablet 1,000 mg 09-08 22:30: 00 09-08 22:55 :00 No 1000mg 1,000 mg, Oral, ONCE, 1 dose, On Narda 09/08/24 at 1630, YAHIR [facility] methocarbam oL 750 mg tablet 09-08 00:00: 00 04-19 00:00 :00 No [id number] 750mg Take 1 tablet by mouth every 6 (six) hours as needed for Pain (scale 7-10). [facility] Nystatin [id number] UNIT/ML Nystatin [id number] UNIT/ML 11-30 00:00: 00 No 4{ml} QID Nystatin [id number] UNIT/ML clomiPHENE Citrate 50 MG clomiPHENE Citrate 50 MG 10-17 00:00: 00 No QD clomiPHENE Citrate 50 MG PRAVASTATIN SODIUM (PRAVASTATI N ORAL) 03-27 15:15: 56 Yes 5mg Take by mouth. [facility] acute hospital glipiZIDE XL (GLUCOTROL XL) 10 mg 24 hr tablet 03-27 15:15: 56 Yes 10mg Take 1 tablet by mouth daily with breakfast. [facility] predniSONE (DELTASONE) 10 mg tablet 03-27 15:15: 56 Yes 10mg Take 1 tablet by mouth in the morning. [facility] acute [facility] nitroglycer in (NITROSTAT) 0.4 mg sublingual tablet 03-27 00:00: [address] 1 tablet under the tongue every 5 (five) minutes as needed for Chest pain. [facility] traMADOL (ULTRAM) 50 mg tablet 03-27 00:00: 00 Yes 50mg Take 1 tablet by mouth every 6 (six) hours as needed for Pain (scale 4-6). [facility] acute hospital Cholestyram ine 4 GM Cholestyram ine 4 [...] Flucelvax - multidose vial 2021-07-31 17:04:00 Completed [facility] Flucelvax - multidose vial Flucelvax - multidose vial 2021-07-31 17:04:00 [facility] Flucelvax - multidose vial Flucelvax - multidose vial 2021-07-31 17:04:00 Completed [facility] Flucelvax - multidose vial Flucelvax - multidose vial 2021-07-31 17:04:00 Completed [facility] Flucelvax - multidose vial Flucelvax - multidose vial 2021-07-31 17:04:00 Completed [facility] Flucelvax - multidose vial Flucelvax - multidose vial 2021-07-31 17:04:00 Completed [facility] Flucelvax - multidose vial Flucelvax - multidose vial 2021-07-31 17:04:00 Completed [facility] Flucelvax - multidose vial Flucelvax - multidose vial 2021-07-31 17:04:00 Completed [facility] Flucelvax - multidose vial Flucelvax - multidose vial 2021-07-31 17:04:00 Completed [facility] Flucelvax - multidose vial Flucelvax - multidose vial 2021-07-31 17:04:00 Completed [facility] Flucelvax - multidose vial Flucelvax - multidose vial 2021-07-31 17:04:00 Completed [facility] Flucelvax - multidose vial Flucelvax - multidose vial 2021-07-31 17:04:00 Completed [facility] Flucelvax - multidose vial Flucelvax - multidose vial 2021-07-31 17:04:00 Completed [facility] Flucelvax - multidose vial Flucelvax - multidose vial 2021-07-31 17:04:00 Completed [facility] Flucelvax - multidose vial Flucelvax - multidose vial 2021-07-31 17:04:00 Completed [facility] Flucelvax - multidose vial Flucelvax - multidose vial 2021-07-31 17:04:00 Completed [facility] Flucelvax - multidose vial Flucelvax - multidose vial 2021-07-31 17:04:00 Completed [facility] Flucelvax - multidose vial Flucelvax - multidose vial 2021-07-31 17:04:00 Completed [facility] Flucelvax - multidose vial Flucelvax - multidose vial 2021-07-31 17:04:00 Completed [facility] Flucelvax - multidose vial Flucelvax - multidose vial 2021-07-31 17:04:00 Completed [facility] Flucelvax - multidose vial Flucelvax - multidose vial 2021-07-31 17:04:00 Completed [facility] Flucelvax - multidose vial Flucelvax - multidose vial 2021-07-31 17:04:00 Completed [facility] SARS-COV-2 COVID-19 PFIZER VACCINE 2021-03-18 00:00:00 Completed [facility] SARS-COV-2 COVID-19 PFIZER VACCINE 2021-02-25 00:00:00 Completed [facility] Flucelvax - single dose syringe Flucelvax - single dose syringe 2019-05-05 17:06:00 Completed [facility] Flucelvax - single dose syringe Flucelvax - single dose syringe 2019-05-05 17:06:00 Completed [facility] Flucelvax - single dose syringe Flucelvax - single dose syringe 2019-05-05 17:06:00 Completed [facility] Flucelvax - single dose syringe Flucelvax - single dose syringe 2019-05-05 17:06:00 Completed [facility] Flucelvax - single dose syringe Flucelvax - single dose syringe 2019-05-05 17:06:00 Completed [facility] Flucelvax - single dose syringe Flucelvax - single dose syringe 2019-05-05 17:06:00 Completed [facility] Flucelvax - single dose syringe Flucelvax - single dose syringe 2019-05-05 17:06:00 Completed [facility] Flucelvax - single dose syringe Flucelvax - single dose syringe 2019-05-05 17:06:00 Completed [facility] Flucelvax - single dose syringe Flucelvax - single dose syringe 2019-05-05 17:06:00 Completed [facility] Flucelvax - single dose syringe Flucelvax - single dose syringe 2019-05-05 17:06:00 Completed [facility] Flucelvax - single dose syringe Flucelvax - single dose syringe 2019-05-05 17:06:00 Completed [facility] Flucelvax - single dose syringe Flucelvax - single dose syringe 2019-05-05 17:06:00 Completed [facility] Flucelvax - single dose syringe Flucelvax - single dose syringe 2019-05-05 17:06:00 Completed [facility] Flucelvax - single dose syringe Flucelvax - single dose syringe 2019-05-05 17:06:00 Completed [facility] Flucelvax - single dose syringe Flucelvax - single dose syringe 2019-05-05 17:06:00 Completed [facility] Flucelvax - single dose syringe Flucelvax - single dose syringe 2019-05-05 17:06:00 Completed [facility] Flucelvax - single dose syringe Flucelvax - single dose syringe 2019-05-05 17:06:00 Completed [facility] Flucelvax - single dose syringe Flucelvax - single dose syringe 2019-05-05 17:06:00 Completed [facility] Flucelvax - single dose syringe Flucelvax - single dose syringe 2019-05-05 17:06:00 Completed [facility] Flucelvax - single dose syringe Flucelvax - single dose syringe 2019-05-05 17:06:00 Completed [facility] Flucelvax - single dose syringe Flucelvax - single dose syringe 2019-05-05 17:06:00 Completed [facility] Flucelvax - single dose syringe Flucelvax - single dose syringe 2019-05-05 17:06:00 Completed [facility] Flucelvax - single dose syringe Flucelvax - single dose syringe 2019-05-05 17:06:00 Completed [facility] Flucelvax (ccIIV4) - MDV - 0.5mL Flucelvax (ccIIV4) - MDV - 0.5mL Unknown Completed [facility] Flucelvax (ccIIV4) - SDS - 0.5mL Flucelvax (ccIIV4) - SDS - 0.5mL Unknown Completed [facility] Flucelvax (ccIIV4) - MDV - 0.5mL Flucelvax (ccIIV4) - MDV - 0.5mL Unknown Completed [facility] Flucelvax (ccIIV4) - SDS - 0.5mL Flucelvax (ccIIV4) - SDS - 0.5mL Unknown Completed [facility] Flucelvax (ccIIV4) - MDV - 0.5mL Flucelvax (ccIIV4) - MDV - 0.5mL Unknown Completed [facility] Flucelvax (ccIIV4) - SDS - 0.5mL Flucelvax (ccIIV4) - SDS - 0.5mL Unknown Completed [facility] Flucelvax (ccIIV4) - MDV - 0.5mL Flucelvax (ccIIV4) - MDV - 0.5mL Unknown Completed [facility] Flucelvax (ccIIV4) - SDS - 0.5mL Flucelvax (ccIIV4) - SDS - 0.5mL Unknown Completed [facility] Flucelvax (ccIIV4) - MDV - 0.5mL Flucelvax (ccIIV4) - MDV - 0.5mL Unknown Completed [facility] Flucelvax (ccIIV4) - SDS - 0.5mL Flucelvax (ccIIV4) - SDS - 0.5mL Unknown Completed [facility] Flucelvax (ccIIV4) - MDV - 0.5mL Flucelvax (ccIIV4) - MDV - 0.5mL Unknown Completed [facility] Flucelvax (ccIIV4) - SDS - 0.5mL Flucelvax (ccIIV4) - SDS - 0.5mL Unknown Completed [facility] Flucelvax (ccIIV4) - MDV - 0.5mL Flucelvax (ccIIV4) - MDV - 0.5mL Unknown Completed [facility] Flucelvax (ccIIV4) - SDS - 0.5mL Flucelvax (ccIIV4) - SDS - 0.5mL Unknown Completed [facility] Flucelvax (ccIIV4) - MDV - 0.5mL Flucelvax (ccIIV4) - MDV - 0.5mL Unknown Completed [facility] Flucelvax (ccIIV4) - SDS - 0.5mL Flucelvax (ccIIV4) - SDS - 0.5mL Unknown Completed [facility] Flucelvax (ccIIV4) - MDV - 0.5mL Flucelvax (ccIIV4) - MDV - 0.5mL Unknown Completed [facility] Flucelvax (ccIIV4) - SDS - 0.5mL Flucelvax (ccIIV4) - SDS - 0.5mL Unknown Completed [facility] Flucelvax (ccIIV4) - MDV - 0.5mL Flucelvax (ccIIV4) - MDV - 0.5mL Unknown Completed [facility] Flucelvax (ccIIV4) - SDS - 0.5mL Flucelvax (ccIIV4) - SDS - 0.5mL Unknown Completed [facility] Flucelvax (ccIIV4) - MDV - 0.5mL Flucelvax (ccIIV4) - MDV - 0.5mL Unknown Completed [facility] Flucelvax (ccIIV4) - SDS - 0.5mL Flucelvax (ccIIV4) - SDS - 0.5mL Unknown Completed [facility] Fluad (IIV) - SDS - 0.5mL Fluad (IIV) - SDS - 0.5mL Unknown Completed [facility] Flucelvax - multidose vial Flucelvax - multidose vial Unknown Completed [facility] Flucelvax - single dose syringe Flucelvax - single dose syringe Unknown Completed [facility] Flucelvax - multidose vial Flucelvax - multidose vial Unknown Completed [facility] Flucelvax - single dose syringe Flucelvax - single dose syringe Unknown Completed [facility] Flucelvax - multidose vial Flucelvax - multidose vial Unknown Completed [facility] Flucelvax - single dose syringe Flucelvax - single dose syringe Unknown Completed [facility] Flucelvax - multidose vial Flucelvax - multidose vial Unknown Completed [facility] Flucelvax - single dose syringe Flucelvax - single dose syringe Unknown Completed [facility] Flucelvax - multidose vial Flucelvax - multidose vial Unknown Completed [facility] Flucelvax - single dose syringe Flucelvax - single dose syringe Unknown Completed [facility] Flucelvax - multidose vial Flucelvax - multidose vial Unknown Completed [facility] Flucelvax - single dose syringe Flucelvax - single dose syringe Unknown Completed [facility] Flucelvax - multidose vial Flucelvax - multidose vial Unknown Completed [facility] Flucelvax - single dose syringe Flucelvax - single dose syringe Unknown Completed [facility] Flucelvax - multidose vial Flucelvax - multidose vial Unknown Completed [facility] Flucelvax - single dose syringe Flucelvax - single dose syringe Unknown Completed [facility] Flucelvax - multidose vial Flucelvax - multidose vial Unknown Completed [facility] Flucelvax - single dose syringe Flucelvax - single dose syringe Unknown Completed [facility] Vital Signs Vital Name Observation Time Observation Value Comments S ource height 2025-03-09 10:20:00 73 [in_i] Commo n [facility] weight 2025-03-09 10:20:00 208.6 [lb_av] Co mmon [facility] temperature 2025-03-09 10:20:00 97.4 [degF] Com mon [facility] bmi 2025-03-09 10:20:00 27.52 kg/m2 Comm on [facility] oximetry 2025-03-09 10:20:00 97 % Commo n [facility] respiratory rate 2025-03-09 10:20:00 16 /min [facility] blood pressure systolic 2025-03-09 10:20:00 138 mm[Hg] [facility] blood pressure diastolic 2025-03-09 10:20:00 78 mm[Hg] [facility] Respiratory rate 2024-11-28 17:22:00 16 /min [facility] Body height 2024-11-28 17:22:00 185.4 cm [facility] Body weight 2024-11-28 17:22:00 94.802 kg [facility] BMI 2024-11-28 17:22:00 27.57 kg/m2 [facility] Heart rate 2024-10-12 18:40:00 81 /min [facility] Oxygen saturation in Arterial blood by Pulse oximetry 2024-10-12 18:40:00 96 /min [facility] Systolic blood pressure 2024-10-12 18:25:00 154 mm[Hg] [facility] Diastolic blood pressure 2024-10-12 18:25:00 82 mm[Hg] [facility] Respiratory rate 2024-10-12 18:25:00 18 /min [facility] Body temperature 2024-10-12 17:40:00 36.28 Bela [facility] Body height 2024-10-12 13:59:00 185.4 cm [facility] Body weight 2024-10-12 13:59:00 94[facility]9 [facility] 2024-10-12 13:59:00 27.60 kg/m2 [facility] Systolic blood pressure 2024-10-12 13:59:00 141 mm[Hg] [facility] Diastolic blood pressure 2024-10-12 13:59:00 75 mm[Hg] [facility] Heart rate 2024-10-12 13:59:00 76 /min [facility] Body temperature 2024-10-12 13:59:00 36.44 Bela [facility] Respiratory rate 2024-10-12 13:59:00 18 /min [facility] Body height 2024-10-12 13:59:00 185.4 cm [facility] Body weight 2024-10-12 13:59:00 94.9 kg [facility] BMI 2024-10-12 13:59:00 27.60 kg/m2 [facility] Oxygen saturation in Arterial blood by Pulse oximetry 2024-10-12 13:59:00 97 /min [facility] Respiratory rate 2024-09-29 18:22:00 16 /min [facility] Body height 2024-09-29 18:22:00 185.4 cm [facility] Body weight 2024-09-29 18:22:00 97.523 kg [facility] BMI 2024-09-29 18:22:00 28.37 kg/m2 [facility] Body height 2024-09-21 19:28:00 185.4 cm [facility] Body weight 2024-09-21 19:28:00 97.523 kg [facility] BMI 2024-09-21 19:28:00 28.37 kg/m2 [facility] height 2024-09-19 11:20:00 73 [in_i] Commo n [facility] weight 2024-09-19 11:20:00 220 [lb_av] Comm on [facility] bmi 2024-09-19 11:20:00 29.02 kg/m2 Comm on [facility] Heart rate 2024-09-09 01:44:00 75 /min [facility] Respiratory rate 2024-09-09 01:44:00 16 /min [facility] Oxygen saturation in Arterial blood by Pulse oximetry 2024-09-09 01:44:00 96 /min [facility] Systolic blood pressure 2024-09-09 01:00:00 157 mm[Hg] [facility] Diastolic blood pressure 2024-09-09 01:00:00 76 mm[Hg] [facility] Body temperature 2024-09-08 22:13:00 36.78 Bela [facility] Body height 2024-09-08 22:13:00 188 cm [facility] Body weight 2024-09-08 22:13:00 97.523 kg [facility] BMI 2024-09-08 22:13:00 27.60 kg/m2 [facility] height 2024-09-07 16:20:00 73 [in_i] Commo n [facility] weight 2024-09-07 16:20:00 220 [lb_av] Comm on [facility] bmi 2024-09-07 16:20:00 29.02 kg/m2 Comm on [facility] height 2024-06-20 14:20:00 73 [in_i] Commo n [facility] weight 2024-06-20 14:20:00 219.6 [lb_av] Co mmon [facility] temperature 2024-06-20 14:20:00 98.4 [degF] Com mon [facility] bmi 2024-06-20 14:20:00 28.97 kg/m2 Comm on [facility] oximetry 2024-06-20 14:20:00 97 % Commo n [facility] respiratory rate 2024-06-20 14:20:00 16 /min Common [facility] blood pressure systolic 2024-06-20 14:20:00 154 mm[Hg] Common [facility] blood pressure diastolic 2024-06-20 14:20:00 75 mm[Hg] Common [facility] height 2024-03-07 16:00:00 73 [in_i] Commo n [facility] weight 2024-03-07 16:00:00 220 [lb_av] Comm on [facility] bmi 2024-03-07 16:00:00 29.02 kg/m2 Comm on [facility] height 2023-12-01 16:00:00 73 [in_i] Commo n [facility] weight 2023-12-01 16:00:00 220 [lb_av] Comm on [facility] bmi 2023-12-01 16:00:00 29.02 kg/m2 Comm on [facility] height 2023-09-30 14:00:00 73 [in_i] Commo n [facility] weight 2023-09-30 14:00:00 220.2 [lb_av] Co mmon [facility] temperature 2023-09-30 14:00:00 97.9 [degF] Com mon [facility] bmi 2023-09-30 14:00:00 29.05 kg/m2 Comm on [facility] oximetry 2023-09-30 14:00:00 99 % Commo n [facility] respiratory rate 2023-09-30 14:00:00 18 /min Common [facility] blood pressure systolic 2023-09-30 14:00:00 146 mm[Hg] [facility] blood pressure diastolic 2023-09-30 14:00:00 68 mm[Hg] Common [facility] height 2023-08-25 13:20:00 73 [in_i] Commo n [facility] weight 2023-08-25 13:20:00 220 [lb_av] Comm on [facility] bmi 2023-08-25 13:20:00 29.02 kg/m2 Comm on [facility] height 2023-05-21 16:00:00 73 [in_i] Commo n [facility] weight 2023-05-21 16:00:00 217.0 [lb_av] Co [facility] temperature 2023-05-21 16:00:00 98.8 [degF] Com [facility] bmi 2023-05-21 16:00:00 28.63 kg/m2 Comm on [facility] oximetry 2023-05-21 16:00:00 95 % Commo n [facility] respiratory rate 2023-05-21 16:00:00 16 /min [facility] blood pressure systolic 2023-05-21 16:00:00 139 mm[Hg] [facility] blood pressure diastolic 2023-05-21 16:00:00 77 mm[Hg] [facility] height 2023-02-11 15:20:00 73 [in_i] Commo n [facility] weight 2023-02-11 15:20:00 214.0 [lb_av] Co [facility] temperature 2023-02-11 15:20:00 97.4 [degF] Com [facility] bmi 2023-02-11 15:20:00 28.23 kg/m2 Comm on [facility] oximetry 2023-02-11 15:20:00 95 % Commo n [facility] respiratory rate 2023-02-11 15:20:00 16 /min Common [facility] blood pressure systolic 2023-02-11 15:20:00 133 mm[Hg] Common [facility] blood pressure diastolic 2023-02-11 15:20:00 79 mm[Hg] [facility] height 2022-09-15 16:00:00 73 [in_i] Commo n [facility] weight 2022-09-15 16:00:00 227.8 [lb_av] Co mmon [facility] temperature 2022-09-15 16:00:00 97.3 [degF] Com [facility] bmi 2022-09-15 16:00:00 30.05 kg/m2 Comm on [facility] oximetry 2022-09-15 16:00:00 95 % Commo n [facility] respiratory rate 2022-09-15 16:00:00 16 /min [facility] blood pressure systolic 2022-09-15 16:00:00 134 mm[Hg] [facility] blood pressure diastolic 2022-09-15 16:00:00 79 mm[Hg] Common [facility] height 2022-09-15 16:00:00 73 [in_i] Commo n [facility] weight 2022-09-15 16:00:00 227.8 [lb_av] Co mmon [facility] temperature 2022-09-15 16:00:00 97.3 [degF] Com mon [facility] bmi 2022-09-15 16:00:00 30.05 kg/m2 Comm on [facility] oximetry 2022-09-15 16:00:00 95 % Commo n [facility] respiratory rate 2022-09-15 16:00:00 16 /min Common [facility] blood pressure systolic 2022-09-15 16:00:00 134 mm[Hg] [facility] blood pressure diastolic 2022-09-15 16:00:00 79 mm[Hg] [facility] height 2022-09-03 17:00:00 73 [in_i] Commo n [facility] weight 2022-09-03 17:00:00 225.4 [lb_av] Co mmon [facility] temperature 2022-09-03 17:00:00 98.6 [degF] Com mon [facility] bmi 2022-09-03 17:00:00 29.73 kg/m2 Comm on [facility] oximetry 2022-09-03 17:00:00 99 % Commo n [facility] respiratory rate 2022-09-03 17:00:00 18 /min [facility] blood pressure systolic 2022-09-03 17:00:00 136 mm[Hg] [facility] blood pressure diastolic 2022-09-03 17:00:00 80 mm[Hg] [facility] height 2022-06-16 16:00:00 73 [in_i] Commo n [facility] weight 2022-06-16 16:00:00 220 [lb_av] Comm on [facility] temperature 2022-06-16 16:00:00 97.5 [degF] Com mon [facility] bmi 2022-06-16 16:00:00 29.02 kg/m2 Comm on [facility] oximetry 2022-06-16 16:00:00 96 % Commo n [facility] respiratory rate 2022-06-16 16:00:00 16 /min Common [facility] blood pressure systolic 2022-06-16 16:00:00 160 mm[Hg] [facility] blood pressure diastolic 2022-06-16 16:00:00 90 mm[Hg] [facility] blood pressure diastolic 2021-07-18 17:00:00 91 mm[Hg] [facility] height 2021-07-18 17:00:00 73 [in_i] Commo n [facility] weight 2021-07-18 17:00:00 225 [lb_av] Comm on [facility] temperature 2021-07-18 17:00:00 97.9 [degF] Com mon [facility] bmi 2021-07-18 17:00:00 29.68 kg/m2 Comm on [facility] oximetry 2021-07-18 17:00:00 99 % Commo n [facility] respiratory rate 2021-07-18 17:00:00 18 /min [facility] blood pressure systolic 2021-07-18 17:00:00 146 mm[Hg] [facility] Procedures Procedure Date / Time Performed Performing Clinician Source POCT GLUCOSE (AUTOMATED) 2024-10-12 17:47:00 Olvin [facility] POCT GLUCOSE (AUTOMATED) 2024-10-12 17:47[facility] VW 2024-10-12 17:07:50 Olvin [facility] XR LUMBAR SPINE 1 2024-10-12 17:07:50 Pedro Bah [facility] [id number] - ME BENJAMIN FACETECTOMY & FORAMOTOMY 1 VRT SGM LUMBAR 2024-10-12 14:39:00 [facility] [id number] - [place] BENJAMIN FACETECTOMY&FORAMOT 1 VRT SGM EA ADDL SGM 2024-10-12 14:39:00 [id number] - ME LAMNOTMY INCL W/DCMPRSN NRV ROOT 1 INTRSPC LUMBR 2024-10-12 14:39:00 Pedro Bah [facility] HB ABO GROUPING 2024-10-12 13:52:00 Tico Ace [facility] HB ABO GROUPING 2024-10-12 13:52:00 Tico Ace [facility] POCT GLUCOSE (AUTOMATED) 2024-10-12 13:09:00 Pedro Bah [facility] POCT GLUCOSE (AUTOMATED) 2024-10-12 13:09:00 Pedro Bah [facility] MR LUMBAR SPINE WO CONTRAST 2024-09-21 22:57:00 Betzaida Wheat [facility] URINALYSIS 2024-09-09 00:40:00 [facility] 2024-09-08 23:55:59 Ashlyn Cardoso [facility] PVR 2023-09-30 00:00:00 [facility] Encounters Start Date/Time End Date/Time Encounter Type Admission Type Attending [facility] Care Facility Care Department Encounter ID Source 2024-11-03 11:22:01 Outpatient [place] ST[facility] STL[facility] [id number] [facility] 2024-09-27 08:50:00 Outpatient [place] hicks STLMLC STL[facility] [id number] [facility] 2024-09-15 09:00:01 Outpatient [place] hicks STLMLC STLML[facility] [id number] [facility] 2024-05-24 12:07:00 Outpatient [place] hicks STLMLC STLMLC [id number] [facility] 2023-10-12 11:49:00 Outpatient [place] hicks STLML[facility] STLMLC [id number] [facility] 2023-01-13 08:24:01 Outpatient BrowardMary STLMLC STLMLC [id number] [facility] 2022-12-16 14:33:02 Outpatient BrowardEstebana STLMLC STLMLC [id number] [facility] 2022-11-11 08:03:02 Outpatient [place]Mary hicks STLMLC STLMLC [id number] [facility] 2022-10-13 15:31:02 Outpatient [place] hicks STLMLC STLML[facility] [id number] [facility] 2022-09-16 11:26:01 Outpatient [place] hicks STLMLC STLMLC [id number] [facility] 2022-09-11 09:33:00 Outpatient [place] hicks STLMLC STLMLC [id number] [facility] 2022-06-13 09:11:01 Outpatient [place] hicks STLMLC STLMLC [id number] [facility] 2022-03-27 11:28:02 Outpatient [place] hicks STLMLC STLMLC [id number] [facility] 2022-03-17 09:41:01 Outpatient [place]Mary hicks STLMLC STLMLC [id number] [facility] 2022-03-11 11:41:02 Outpatient [place] hicks STLMLC STLMLC [id number] [facility] 2022-03-06 14:55:01 Outpatient Mary Alberto STLMLC STLMLC [id number] [facility] 2022-02-24 08:36:04 Outpatient [place] hicks STLMLC STLMLC [id number] [facility] 2022-02-07 11:10:02 Outpatient [place] hicks STLMLC STLMLC [id number] [facility] 2021-12-23 16:24:01 Outpatient Dolly Mary STLMLC STLMLC [id number] [facility] 2021-10-21 14:49:01 Outpatient BrowardEsteban hicksa STLMLC STLMLC [id number] [facility] 2021-09-04 14:26:58 Outpatient Mary Alberto STBENJAMIN STLMLC [id number] [facility] 2021-09-04 14:23:10 Outpatient Mary Alberto STBENJAMIN STLMLC [id number] [facility] 2025-04-18 00:00:00 2025-04-19 08:50:47 Refill Nellie [facility] MEDICAL OFFICE BUILDING 1.2.840.114 350.1.13.10 4.2.7.2.686 [id number] [facility] acute hospital 2025-03-20 00:00:00 2025-03-20 17:17:19 Telephone Nellie [facility] MEDICAL OFFICE BUILDING 1.2.840.114 350.1.13.10 4.2.7.2.686 [id number] General acute hospital 2025-03-09 00:00:00 2025-03-09 00:00:00 OFFICE VISIT ESTAB PT LEVEL 4 STLMLC STLMLC [id number] [facility] 2025-02-23 00:00:00 2025-02-23 00:00:00 (TEL) STLMLC STLMLC [id number] [facility] 2025-02-08 00:00:00 2025-02-08 12:58:[facility] 1.2.840.114 350.1.13.10 4.2.7.2.686 [id number] General acute hospital 2025-02-06 00:00:00 2025-02-06 00:00:00 (TEL) STLMLC STLMLC [id number] [facility] 2025-02-03 00:00:00 2025-02-03 00:00:00 (TEL) STLMLC STLMLC [id number] [facility] 2025-01-26 00:00:00 2025-01-27 15:00:09 Telephone Olvin [facility] MEDICAL OFFICE BUILDING 1.2.840.114 350.1.13.10 4.2.7.2.686 [id number] General acute hospital 2025-01-24 00:00:00 2025-01-24 00:00:00 (TEL) STLMLC STLMLC [id number] [facility] 2025-01-10 00:00:00 2025-01-11 11:19:56 Telephone Olvin [facility] MEDICAL OFFICE BUILDING 1.2.840.114 350.1.13.10 4.2.7.2.686 [id number] General acute hospital 2024-12-31 00:00:00 2025-01-01 11:54:42 Refill Nellie [facility] MEDICAL OFFICE BUILDING 1.2.840.114 350.1.13.10 4.2.7.2.686 [id number] General acute hospital 2024-12-30 16:30:00 2024-12-30 17:00:00 Telemedici ne Visit Nellie Holley [facility] [place] [facility]) 1.2.840.114 350.1.13.10 4.2.7.2.686 [id number] General acute hospital 2024-12-30 00:00:00 2024-12-30 14:44:30 Refill Nellie [facility] MEDICAL OFFICE BUILDING 1.2.840.114 350.1.13.10 4.2.7.2.686 [id number] General acute hospital 2024-12-29 00:00:00 2024-12-29 14:41:35 Telephone Olvin [facility] MEDICAL OFFICE BUILDING 1.2.840.114 350.1.13.10 4.2.7.2.686 [id number] General acute hospital 2024-12-18 00:00:00 2024-12-19 [facility]18[facility]47 [facility] 1.2.840.114 350.1.13.10 4.2.7.2.686 [id number] General acute hospital 2024-12-12 00:00:00 2024-12-13 10:55:31 [facility] 1.2.840.114 350.1.13.10 4.2.7.2.686 [id number] General acute hospital 2024-11-30 00:00:00 2024-11-30 00:00:00 (TEL) STLMLC STLMLC [id number] [facility] 2024-11-28 12:00:00 2024-11-28 13:46:07 Office Visit Olvin [facility] MEDICAL OFFICE BUILDING 1.2.840.114 350.1.13.10 4.2.7.2.686 [id number] General acute hospital 2024-11-11 00:00:00 2024-11-11 16:17:23 [facility] 1.2.840.114 350.1.13.10 4.2.7.2.686 [id number] General acute hospital 2024-11-11 00:00:00 2024-11-11 00:00:00 OFFICE VISIT ESTAB PT LEVEL 4 STLMLC STLMLC [id number] [facility] 2024-11-03 00:00:00 2024-11-04 09:05:04 Telephone [facility] MEDICAL OFFICE BUILDING 1.2.840.114 350.1.13.10 4.2.7.2.686 [id number] General acute hospital 2024-10-31 00:00:00 2024-10-31 16:23:42 Telephone Pedro Bah [facility] MEDICAL OFFICE BUILDING 1.2840.114 350.1.13.10 4.2.7.2.686 [id number] General acute hospital 2024-10-25 00:00:00 2024-10-25 00:00:00 (TEL) STLMLC STLMLC [id number] [facility] 2024-10-21 00:00:00 2024-10-21 00:00:00 (TEL) STLC STLC [id number] [facility] 2024-10-12 06:54:00 2024-10-12 12:47:00 Outpatient R OLVIN [facility] [id number] [facility] 2024-10-12 06:54:00 2024-10-12 12:47:00 Hospital Encounter Olvin [facility] [place] 1.2840.114 350.1.13.10 4.2.7.2.686 [id number] General acute hospital 2024-10-12 08:40:00 2024-10-12 11:36:00 Surgery Pedro Bah [facility] 1.2.840.114 350.1.13.10 4.2.7.2.686 [id number] General acute hospital 2024-10-11 00:00:00 2024-10-11 00:00:00 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 [employer], [facility] Tico Ace, [facility] BUILDING 1.2.840.114 350.1.13.10 4.2.7.2.686 [id number] General acute hospital 2024-10-10 12:30:00 2024-10-10 12:30:00 Outpatient R TICO ACE [facility] [id number] General acute hospital 2024-09-29 13:15:00 2024-09-29 13:30:00 Office Visit Pedro Bah [facility] MEDICAL OFFICE BUILDING 1.2.840.114 350.1.13.10 4.2.7.2.686 [id number] General acute hospital 2024-09-29 00:00:00 2024-09-29 12:55:06 Prep For Surgery Olvin [facility] [place] ([facility]) 1.2.840.114 350.1.13.10 4.2.7.2.686 [id number] General acute hospital 2024-09-21 15:37:02 2024-09-21 23:59:00 Hospital Encounter Betzaida Wheat [facility] 1.2.840.114 350.1.13.10 4.2.7.2.686 [id number] General acute hospital 2024-09-21 14:00:00 2024-09-21 14:00:00 Office Visit Betzaida Wheat Julia [facility] MEDICAL OFFICE BUILDING 1.2.840.114 350.1.13.10 4.2.7.2.686 [id number] General acute hospital 2024-09-19 00:00:00 2024-09-19 00:00:00 OFFICE VISIT ESTAB PT LEVEL 3 STLMLC STLMLC [id number] [facility] 2024-09-09 00:00:00 2024-09-09 00:00:00 (TEL) STLMLC STLMLC [id number] [facility] 2024-09-08 16:15:00 2024-09-08 19:47:00 Emergency X ASHLYN CARDOSO [facility] ERT [id number] General acute hospital 2024-09-08 16:15:00 2024-09-08 19:47:00 Emergency Ashlyn Cardoso [facility] 1.2.840.114 350.1.13.10 4.2.7.2.686 [id number] General acute hospital 2024-09-07 00:00:00 2024-09-07 00:00:00 OFFICE VISIT ESTAB PT LEVEL 3 STLMLC STLMLC [id number] [facility] 2024-08-29 00:00:00 2024-08-29 00:00:00 (TEL) STLMLC STLMLC [id number] [facility] 2024-08-25 00:00:00 2024-08-25 00:00:00 (TEL) STLMLC STLMLC [id number] [facility] 2024-06-20 00:00:00 2024-06-20 00:00:00 OFFICE VISIT ESTAB PT LEVEL 4 STLMLC STLMLC [id number] [facility] 2024-03-07 00:00:00 2024-03-07 00:00:00 OFFICE VISIT ESTAB PT LEVEL 4 STLMLC STLMLC [id number] [facility] 2024-03-07 00:00:00 2024-03-07 00:00:00 (TEL) STLMLC STLMLC [id number] [facility] 2024-01-01 00:00:00 2024-01-01 00:00:00 (TEL) STLMLC STLMLC [id number] [facility] 2023-12-01 00:00:00 2023-12-01 00:00:00 OFFICE VISIT ESTAB PT LEVEL 4 STLMLC STLMLC [id number] [facility] 2023-10-30 00:00:00 2023-10-30 00:00:00 (TEL) STLMLC STLMLC [id number] [facility] 2023-10-26 00:00:00 2023-10-26 00:00:00 (TEL) STLMLC STLMLC [id number] [facility] 2023-09-30 00:00:00 2023-09-30 00:00:00 OFFICE VISIT ESTAB PT LEVEL 4 STLMLC STLMLC [id number] [facility] 2023-09-17 00:00:00 2023-09-17 00:00:00 (TEL) STLMLC STLMLC [id number] [facility] 2023-09-11 00:00:00 2023-09-11 00:00:00 (TEL) STLMLC STLMLC [id number] [facility] 2023-08-25 00:00:00 2023-08-25 00:00:00 OFFICE VISIT ESTAB PT LEVEL 3 STLMLC STLMLC [id number] [facility] 2023-06-11 00:00:00 2023-06-11 00:00:00 (TEL) STLMLC STLMLC [id number] [facility] 2023-05-21 00:00:00 2023-05-21 00:00:00 OFFICE VISIT ESTAB PT LEVEL 3 STLMLC STLMLC [id number] [facility] 2023-02-11 00:00:00 2023-02-11 00:00:00 OFFICE VISIT ESTAB PT LEVEL 4 STLMLC STLMLC [id number] [facility] 2023-02-09 00:00:00 2023-02-09 00:00:00 (TEL) STLMLC STLMLC [id number] [facility] 2022-12-25 00:00:00 2022-12-25 00:00:00 (TEL) STLMLC STLMLC [id number] [facility] 2022-12-16 00:00:00 2022-12-16 00:00:00 (TEL) STLMLC STLMLC [id number] [facility] 2022-10-21 00:00:00 2022-10-21 00:00:00 (TEL) STLMLC STLMLC [id number] [facility] 2022-10-13 00:00:00 2022-10-13 00:00:00 (TEL) STLMLC STLMLC [id number] [facility] 2022-09-30 00:00:00 2022-09-30 00:00:00 ([place]) Nurse Visit STLMLC STLMLC [id number] [facility] 2022-09-17 00:00:00 2022-09-17 00:00:00 (TEL) STLMLC STLMLC [id number] [facility] 2022-09-15 00:00:00 2022-09-15 00:00:00 OFFICE VISIT ESTAB PT LEVEL 4 STLMLC STLMLC [id number] [facility] 2022-09-15 00:00:00 2022-09-15 00:00:00 INIT ANNUAL MCR WELLNESS VISIT STLMLC STLMLC [id number] [facility] 2022-09-10 00:00:00 2022-09-10 00:00:00 (TEL) STLMLC STLMLC [id number] [facility] 2022-09-03 00:00:00 2022-09-03 00:00:00 OFFICE VISIT EST PT LEVEL 3 STLMLC STLMLC [id number] [facility] 2022-07-29 00:00:00 2022-07-29 00:00:00 (TEL) STLMLC STLMLC [id number] [facility] 2022-07-22 00:00:00 2022-07-22 00:00:00 (NV) Nurse Visit STLMLC STLMLC [id number] [facility] 2022-07-15 00:00:00 2022-07-15 00:00:00 (NV) Nurse Visit STLMLC STLMLC [id number] [facility] 2022-07-09 00:00:00 2022-07-09 00:00:00 (TEL) STLMLC STLMLC [id number] [facility] 2022-07-08 00:00:00 2022-07-08 00:00:00 (NV) Nurse Visit STLMLC STLMLC [id number] [facility] 2022-07-01 00:00:00 2022-07-01 00:00:00 (TEL) STLMLC STLMLC [id number] [facility] 2022-07-01 00:00:00 2022-07-01 00:00:00 (NV) Nurse Visit STLMLC STLMLC [id number] [facility] 2022-06-26 00:00:00 2022-06-26 00:00:00 (TEL) STLMLC STLMLC [id number] [facility] 2022-06-25 00:00:00 2022-06-25 00:00:00 (TEL) STLMLC STLMLC [id number] [facility] 2022-06-24 00:00:00 2022-06-24 00:00:00 (NV) Nurse Visit STLMLC STLMLC [id number] [facility] 2022-06-17 00:00:00 2022-06-17 00:00:00 (NV) Nurse Visit STLMLC STLMLC [id number] [facility] 2022-06-16 00:00:00 2022-06-16 00:00:00 OFFICE VISIT ESTAB PT LEVEL 4 STLMLC STLMLC [id number] [facility] 2022-06-10 00:00:00 2022-06-10 00:00:00 (NV) Nurse Visit STLMLC STLMLC [id number] [facility] 2022-06-03 00:00:00 2022-06-03 00:00:00 (NV) Nurse Visit STLMLC STLMLC [id number] [facility] 2022-05-27 00:00:00 2022-05-27 00:00:00 (NV) Nurse Visit STLMLC STLMLC [id number] [facility] 2022-05-20 00:00:00 2022-05-20 00:00:00 (NV) Nurse Visit STLMLC STLMLC [id number] [facility] 2022-05-13 00:00:00 2022-05-13 00:00:00 (NV) Nurse Visit STLMLC STLMLC [id number] [facility] 2022-05-06 00:00:00 2022-05-06 00:00:00 (NV) Nurse Visit STLMLC STLMLC [id number] [facility] 2022-04-21 00:00:00 2022-04-21 00:00:00 ambulatory STLMLC STLMLC [id number] [facility] 2022-03-31 00:00:00 2022-03-31 00:00:00 ambulatory STLMLC STLMLC [id number] [facility] 2022-03-20 00:00:00 2022-03-20 00:00:00 ambulatory STLMLC STLMLC [id number] [facility] 2022-03-17 00:00:00 2022-03-17 00:00:00 ambulatory STLMLC STLMLC [id number] [facility] 2022-03-14 00:00:00 2022-03-14 00:00:00 ambulatory STLMLC STLMLC [id number] [facility] 2022-03-13 00:00:00 2022-03-13 00:00:00 ambulatory STLMLC STLMLC [id number] [facility] 2022-03-11 00:00:00 2022-03-11 00:00:00 ambulatory STLMLC STLMLC [id number] [facility] 2022-03-06 00:00:00 2022-03-06 00:00:00 ambulatory STLMLC STLMLC [id number] [facility] 2022-02-26 00:00:00 2022-02-26 00:00:00 ambulatory STLMLC STLMLC [id number] [facility] 2022-02-07 00:00:00 2022-02-07 00:00:00 ambulatory STLMLC STLMLC [id number] [facility] 2021-12-20 00:00:00 2021-12-20 00:00:00 ambulatory STLMLC STLMLC [id number] [facility] 2021-11-12 00:00:00 2021-11-12 00:00:00 ambulatory STLMLC STLMLC [id number] [facility] 2021-10-16 00:00:00 2021-10-16 00:00:00 ambulatory STLMLC STLMLC [id number] [facility] 2021-07-31 00:00:00 2021-07-31 00:00:00 ambulatory STLMLC STLMLC [id number] [facility] 2021-07-24 00:00:00 2021-07-24 00:00:00 (TEL) STLMLC STLMLC [id number] [facility] 2021-07-18 00:00:00 2021-07-18 00:00:00 OFFICE VISIT EST PT LEVEL 3 STLMLC STLMLC [id number] [facility] Results Test Description Test Time Test Comments Results Result Co mments Source POCT GLUCOSE (AUTOMATED)2024-10-12 17:48:33* Test Item Value Reference Range Interpretation Comme nts POCT GLU (test code = 9066953803) 202 mg/dL 70-110 H Lab Interpretation (test cod e = 10196-4) [facility] 17:48:33* Test Item Value Reference Range Interpretation Comme nts POCT GLU (test code = 1909476253) 202 mg/dL 70-110 H Lab Interpretation (test cod e = 12750-3) [facility]normal [facility] 1 [id number] 17:07:58These images do not require a Radiology diagnostic report.[facility] Lum[facility] 1 [id number] 17:07:58These images do not require a Radiology diagnostic report[facility] - [facility]CE [id number] 14:00:00* Test Item Value Reference Range Interpretation Comme nts ABO & RH (test code = 20) B POSITIVE IAT (test code = 1185) Negative [facility] - [facility] [id number] 14:00:00* Test Item Value Reference Range Interpretation Comme nts ABO & RH (test code = 20) B POSITIVE IAT (test code = 1185) Negative [facility] GLUCOSE (AUTOMATED)2024-10-12 13:13:55* Test Item Value Reference Range Interpretation Comme nts POCT GLU (test code = 5039807849) 144 mg/dL 70-110 H Lab Interpretation (test cod e = 72303-4) Abnormal [facility] GLUCOSE (AUTOMATED)2024-10-12 13:13:55* Test Item Value Reference Range Interpretation Comme nts POCT GLU (test code = 3804475612) 144 mg/dL 70-110 H Lab Interpretation (test cod e = 61958-0) Abnormal [facility] Lumbar spine wo [id number] 23:38:02 MR LUMBAR SPINE WO CONTRAST PROVIDED [...] The visualized paraspinal soft tissues are grossly unremarkable.[facility] [id number] 00:10:03CT LUMBAR SPINE WO CONTRAST HISTORY: ?Low [...] seen. The visualized abdominal cavitycontents are otherwise unremarkable.[facility] 2022-06-16 00:00:00* Test Item Value Reference [...] L3-L5 laminectomy David Loya MD Neurosurgery, PGY-7 Main [place] Inquiries, Page [phone] [facility] Inquiries, ([phone]) Chief Complaint: back pain, RLE pain HPI: [...] Patient verbalized understanding and wishes to proceed JESSIE Donahue Neurosurgery Faculty This encounter was performed in [...] the services by signing the medical record. ESSIONAL TUTOR Associated attestation - Pedro Bah MD - 10/12/2024 8:51 AM PROFESSIONAL TUTOR I agree with the note by Dr. Loya with no changes. [facility] Notes Date/Time Note Provider Source 2025-03-20 11:53:47 Patient requesting refill of Baclofen to get him to appt scheduled 05/08 [facility] 2025-01-27 14:59:22 Spoke to patient and told him that Baclofen is what was prescribed and stated that he was just making sure. Patient thanked me for calling. Tracy Albarran RN [facility] 2025-01-27 13:42:20 Andrés Sheriff is a 69 year old male Pt calling nurse back Please advise Tavia Neal [facility] 2025-01-27 12:37:17 Attempted to call patient, no answer, voice mailbox full. [facility] 2025-01-26 12:38:34 Andrés Sheriff is a 69 year old male Patient stating his leg is starting to shake again and can hardly pick anything up with his right hand, he doesn't see Alondra Ballard until 02/06 and would like a refill of the same medication she gave him last time for this please send to [facility] [address] [place] [address] - [facility] [address] LEWIS MONTALVO Viridiana Purvis [facility] 2025-01-11 11:19:01 Spoke to patient and explained that we don't manage pain and told him that we put referral in for Pain Clinic. Patient verbalized understanding. [facility] 2025-01-10 15:31:59 Andrés Sheriff is a 69 year old male Patient requesting a refill for his pain medication. States his back is still very painful and he doesn't have his follow up until 02/06. Please call into [facility] [address] [place] [address] Viridiana Parsonsmisha [facility] 2024-12-29 14:33:57 Spoke to patient and he stated he is having back pain 05/19. Medrol pack called into pharmacy and scheduled patient for telehealth appointment 12/30/24. Patient verbalized understanding. Tracy Albarran RN [facility] 2024-12-29 14:05:53 Attempted to call patient x2 and voice mailbox is full. T [facility] 2024-12-29 11:08:32 Andrés Sheriff is a 69 year old male Patient stating his legs are twitching and is in a lot of pain he also states he doesn't feel he is healing as quickly as he should. his follow up isn't until 02/06 and would like to know if anything can be called in. Please call him back at [phone] [facility] [address] [place] [address] Viridiana Purvis [facility] 2024-12-13 10:55:07 I left voicemail advising of Dr. Bah message, call back number given. Magalis Melgar RN [facility] 2024-12-13 07:23:32 Hi, We do not generally [...] is what he already has prescribed. [facility] 2024-12-12 15:19:10 Routing to provider for review of message T [facility] 2024-12-12 15:04:23 [id number] Andrés Sheriff is a 69 year old male [phone] (home) Patient is wanting pain medication as the previous medication is not helping. Patient states he is in severe pain but did not elaborate and states he cannot wait. Please call him as soon as possible, he wants medication the same day as his call [facility] [address] Please review and advise. Thank you. Jocelynn Prajapati [facility] 2024-11-11 16:15:29 I spoke with patient and advised of refill, patient allergic to NSAID's and unable to take ibuprofen, advised to alternate tramadol with tylenol and take only as needed, verbalized understanding and appreciation. Magalis Melgar RN [facility] 2024-11-11 15:51:53 Will provide limited and final refill of tramadol and valium. Alternate tramadol with ibuprofen 600 mg every 6 hours. T [facility] 2024-11-11 14:25:07 Routing to provider for recommendations [facility] 2024-11-11 13:52:37 Andrés Sheriff is a 69 year old male Patient requesting a refill on his Valium and Tramadol states his back is still hurting and his leg is starting to switch again. States he has an appt with Dr Bah on 11/28 please send scripts to [facility] [address] [place] [address] Viridiana Purvis [facility] 2024-11-04 09:04:21 Patient was notified via voicemail. Magalis Melgar RN [facility] 2024-11-03 15:46:43 I'll provide a short course of tramadol to pharmacy on file. [facility] 2024-11-03 12:21:38 Routing to provider for review T [facility] 2024-11-03 11:58:17 [id number] Andrés Sheriff is a 69 year old male [phone] (home) Patient states Diazapam(Valium) has helped tremendously with the leg pain but patient states he still has lower back pain and would like to see if something can be prescribed for this pain. [facility] [address] [place] [address] Please review and advise. Thank you. T Jocelynn Prajapati [facility] 2024-10-31 16:20:39 I spoke with patient and advised of medication sent to pharmacy, will monitor symptoms with Valium this evening and will call back tomorrow if condition persist or worsens, patient verbalized understanding and appreciation. Magalis Melgar RN [facility] 2024-10-31 16:18:24 Valium 5 mg sent to pharmacy on file. If symptoms persist may schedule w/CHECK PILOT. T [facility] 2024-10-31 15:59:57 I spoke with patient who [...] provider and call back with further recommendations. [facility] 2024-10-31 15:20:42 Andrés Sheriff is a 69 year old male DOS:10/12/[address] Bah. The patient reports experiencing severe pain, indicating that he is unable to move, walk, or stand due to the intensity of the discomfort in his legs. He also notes that his legs and arms are shaking.patient would like to speak to nurse no other symptoms reported please advise. Ph.[phone] Lucille Moss V [facility] 2024-10-12 09:48:33 BRIEF OPERATIVE NOTE Date of Surgery: 10/12/2024 Surgeons and Role: * Pedro Bah MD - Primary * David Loya MD - Resident - Assisting Pre-Op Diagnosis: Lumbar radiculopathy [M54.16] Post-Op Diagnosis Codes: * Lumbar radiculopathy [M54.16] Procedures: Procedure(s) (LRB): POSTERIOR LAMINECTOMY (Bilateral) CPT: 87389, 97067, 94328, Any Complications Encounters: none Estimated Blood Loss: 100cc Specimens Removed: * No specimens in log * * No implants in log * Patient's Condition: Stable to PACU Findings: Significant canal stenosis, well decompressed foramen afterwards Any other important information: None, dermabond for skin Please see dictated operative report for additional detail. [facility] 2024-10-10 12:30:00 Summary: Initial TS complete Images from the original note were not included. Venipuncture collection performed by clean technique on the left anticubitus. Total of 1 attempts were made. Slight pressure and a bandage/dressing were applied to the site(s). The patient experienced no complications. The following specimens were processed according to instructions and sent to [facility] laboratories per lab order on 10/10/2024 : LT BLUE SST RED LAV 1 PPT DK GREEN (LiHep) DK GREEN (SodH) CERVANTES DK BLUE (K2) DK BLUE (S) ACD Blood Culture NIPT/NTD [facility] 2024-09-08 19:46:18 Patient is awake and alert, oriented x4, speech is clear and appropriate, ambulatory with a steady gait, wheelchair to lobby. Advised to seek medical attention for new/prolonged/worsening of symptoms. Respirations even and unlabored, no distress. [facility] Taisha Cruz RN [facility] 2024-09-08 17:53:35 Pt urinated prior to room placement, pt given water. [facility] 2024-09-08 16:11:04 CC: patient presents to the ER with complaints of right leg numbness that began August 30. Patient states he was evaluated by Wes in [place]. Patient states pain radiates from hip to heel and states he cannot put pressure on the foot. Awake, alert, oriented, resp reg unlabored, skin warm and dry, color appropriate for race, moves all ext without difficulty, using wheelchair. Normally uses cane. Appears in no distress. [facility] Radha Vargas RN [facility]
--- NOTE | 2025-04-28 12:27 | ER ---
Nurse's Notes [facility] Name: Neftali Gill Jr Age: 70 yrs Sex: Male : 1955 Arrival Date: 04/28/2025 Time: 09:46 Bed 3 Private MD: Diagnosis: Cardiac arrest, cause unspecified Presentation: 04/28 09:47 Chief complaint: EMS states: roommate found patient unresponsive at home, downtime nh2 unknown, initiated CPR at 0830. Care prior to arrival: Oral intubation, 8mm ET Tube, 24cm at the teeth CPR via thumper was defibrillated defibrilated x3 [employer]ER [employer]PAQUER Medication(s) given: Total of 8 amps of Epi, 1 amp of Bicarb, and Narcan given INKER [employer] OPAQUER IO L shoulder. Compressions began prior to arrival. 09:47 Method Of Arrival: EMS: [facility] nh2 09:47 Acuity: DUNCAN 1 nh2 09:47 Coronavirus screen: unable to complete. Ebola Screen: Unable to complete the Ebola nh2 screening because: Patient is unresponsive. 09:47 Initial Sepsis Screen: Does the patient meet any 2 criteria? Temp <36.0*C (96.8*F)) or nh2 > 38.3*C (100.9*F). Altered Mental Status. Does the patient have a suspected source of infection?. Risk Assessment: Do you want to hurt yourself or someone else? Unable to obtain. Onset of symptoms was April 28, 2025. Historical: - Allergies: 09:47 ACES; nh2 09:47 Cephalexin; nh2 09:47 Diovan; nh2 09:47 Lisinopril; nh2 09:47 nebivolol HCl; nh2 09:47 NSAIDS; nh2 09:47 valsartan; nh2 - PMHx: 09:47 ANGIOEDEMA; GERD; High Cholesterol; Hypertension; NIDDM; nh2 - PSHx: 09:47 Cholecystectomy; TURP; nh2 - Immunization history:: Adult Immunizations unknown. - Infectious Disease History:: Infectious Disease History: unkown. - Social history:: Smoking status: unknown. Assessment: 09:47 CPR assessment: unresponsive, pupils fixed \T\ dilated, no respiratory effort, intubated, nh2 mechanical ventilation, pulses present w/ compressions. Cardiac rhythm is asystole. 09:47 Cardiovascular: Pulses are absent in right femoral artery. nh2 09:47 General: Behavior is unresponsive. Pain: Unable to use pain scale. Patient is nh2 intubated. Patient is unresponsive. Neuro: Level of Consciousness is unresponsive. Respiratory: Airway via oral intubation Respiratory effort is none Respiratory pattern is symmetrical, assisted. GI: Abdomen is round distended. : No deficits noted. Derm: Skin is dry, Skin is normal, Skin temperature is warm. 09:50 CPR assessment: Central pulses absent, asystole on monitor, assisted ventilations nh2 remain via ET tube/ventilator, CPR continued. 09:53 CPR assessment: Central pulses absent, asystole on monitor. CPR stopped per MD CABAN. Time nh2 of is 0953. Vital Signs: 09:47 Resp 18 A; Temp 94.5(R); Pulse Ox 72% on ETT vent; nh2 10:32 Weight 104.33 kg; Height 6 ft. 0 in. ; aa5 10:32 Body Mass Index 31.19 (104.33 kg, 182.88 cm) aa5 ED Course: 09:46 Patient arrived in ED. eb 09:47 Arm band placed on right wrist. nh2 09:50 Inserted saline lock: 22 gauge in right antecubital area, using aseptic technique. nh2 Flushed with 10 mL NS. 09:58 Boris Blakely DO is Attending Physician. ms3 09:58 Boris Blakely DO is Pronouncing Provider. ms3 10:01 Malachi Bee Jr, ANSLEY is Primary Nurse. nh2 10:03 Police [place] [employer] called for the photographer motion picture transcriptionist. eb 10:09 Triage completed. nh2 Administered Medications: No medications were administered Outcome: :53 Patient : Time of 09:53 Pronounced by Boris Blakely DO nh2 12:27 Patient left the ED. af3 Signatures: Chelsey Silverio RN RN aa5 Roxie Cox eb Boris Blakely DO DO ms3 Fátima Nathan RN RN af3 Malachi Bee Jr, RN RN nh2 Corrections: (The following items were deleted from the chart) 10:16 10:12 CPR assessment: unresponsive, pupils fixed \T\ dilated, no respiratory effort, nh2 intubated, pulses absent w/ compressions, nh2 10:16 10:12 Cardiac rhythm is asystole nh2 nh2 10:25 09:50 CPR assessment: Central pulses absent, asystole on monitor, CPR continued. nh2 nh2 10:25 09:50 CPR assessment: Central pulses absent, asystole on monitor, CPR continued. nh2 nh2
--- NOTE | 2025-04-28 12:27 | EDPHYS ---
Physician Documentation [facility] Name: Neftali Gill Jr Age: 70 yrs Sex: Male : 1955 Arrival Date: 04/28/2025 Time: 09:46 Bed 3 Private MD: ED Physician Boris Blakely HPI: 04/28 09:59 This 70 yrs old Black Male presents to ER via Unassigned with complaints of CPR. ms3 09:59 70-year-old male with unknown past medical history presents to the emergency department ms3 via [facility] EMS status post cardiac arrest. EMS states patient had unknown downtime and was found by his roommate unresponsive. Patient's roommate began CPR. On EMS arrival patient was in asystole. An i-gel was placed and then replaced with an 8 oh ET tube at 24 cm at the teeth. A left humeral IO was established and a total of 8 epinephrine were administered. Patient had a total of 3 shocks for V-fib. On arrival to the emergency department EMS rhythm was asystole. Historical: - Allergies: 09:47 ACES; nh2 09:47 Cephalexin; nh2 09:47 Diovan; nh2 09:47 Lisinopril; nh2 09:47 nebivolol HCl; nh2 09:47 NSAIDS; nh2 09:47 valsartan; nh2 - PMHx: 09:47 ANGIOEDEMA; GERD; High Cholesterol; Hypertension; NIDDM; nh2 - PSHx: 09:47 Cholecystectomy; TURP; nh2 - Immunization history:: Adult Immunizations unknown. - Infectious Disease History:: Infectious Disease History: unkown. - Social history:: Smoking status: unknown. ROS: 09:59 Unable to obtain ROS due to Cardiac arrest, ms3 Exam: 09:59 Eyes: Pupils: are fixed and dilated, ms3 09:59 Cardiovascular: Rhythm asystole, no heart sounds auscultated, 09:59 Respiratory: Intubated with 8.0 ETT, Breath sounds: lung sounds Clear with bagging, 09:59 Skin: Warm, dry with normal turgor. Normal color with no rashes, no lesions, and no ms3 evidence of cellulitis. 09:59 Abdomen/GI: Inspection: distension, Palpation: soft, Vital Signs: 09:47 Resp 18 A; Temp 94.5(R); Pulse Ox 72% on ETT vent; nh2 10:32 Weight 104.33 kg; Height 6 ft. 0 in. ; aa5 10:32 Body Mass Index 31.19 (104.33 kg, 182.88 cm) aa5 MDM: 09:58 Medical Screening Exam initiated ms3 09:59 Differential diagnosis: cardiac arrest. Data reviewed: vital signs, nurses notes, and ms3 as a result, I will time of 0953. Independent interpretation of the following test(s) in the Emergency Department Rhythm Strip Interpretation Rhythm: asystole. ED course: Patient rhythm in the ED asystole, no pulses palpated, no heart sounds auscultated, no corneal reflex. Time of 0953. 04/28 10:26 Order name: Glucose, Ancillary Testing EDMS Administered Medications: No medications were administered Disposition: 15:00 Chart complete. ms3 Disposition Summary: 04/28/25 09:58 Patient Notes: Location: Track Leader ms3 Pronouncing Physician: Boris Blakely ms3 Time of : 09:53 04/28/2025 ms3 Diagnosis - Cardiac arrest, cause unspecified ms3 Signatures: Boris Blakely, DO ms3 Malachi Bee Jr, RN RN nh2 Corrections: (The following items were deleted from the chart) 15:00 09:59 Eyes: Pupils: are fixed and dilated, ms3 ms3
== END 2025-04-28 12:27 ==
LOC: ER 09:49
DX: I46.9 Cardiac arrest, cause unspecified (principal); I10 Essential (primary) hypertension
CPT/HCPCS: 82947; 92950 ×2; 99285; J0171; J7030